=== PATIENT | female | born 1960 | race Caucasian/White ===

== ENCOUNTER → 2017-02-04 | Outpatient (CLI) | payer MEDICAID ==
[~2017-02-04] MED LIST: AC500T PO; ALBU8.5H4 IH; CEFD300C3 PO; CETI10CA PO; CHLO25TA22 PO; CLIN-62 PO; CODE118S2 PO; CPR500T PO; FLUT16SP22 NS; HCT25T PO; HYDR1TAB PO; LEVO750T6 PO; LORA1TAB PO; LSNP10T PO; NFPRILOC40 PO; OMEP10CA2 PO; ONDA8TAB13 PO; PRD20T PO; RNT150T PO; RT-ALBUINH IH; VNL75T PO
--- NOTE | 2017-02-05 13:39 | Diagnostic Imaging Report ---
Bilateral screening mammogram 2D views with tomosynthesis. The current study was also evaluated with a Computer Aided Detection (CAD) system. INDICATION: Screening. No current complaints stated on the questionnaire. COMPARISON: 07/05/2006. FINDINGS: Breasts are composed of scattered fibroglandular densities. Occasional benign-appearing calcifications are seen. Allowing for technique and positional differences, no suspicious change is seen. IMPRESSION: No significant change. ACR BI-RADS Category 2: Benign findings. Result letter will be mailed to the patient. Note: At least 10% of breast cancer is not imaged by mammography. Dictated on workstation # [id number]
== END ==
LOC: RAD 12:47
PROVIDERS: ATTEND Family Medicine
DX: Z12.31 Encounter for screening mammogram for malignant neoplasm of breast (principal)
CPT/HCPCS: 77067

== ENCOUNTER → 2017-02-17 | Outpatient (CLI) | payer MEDICAID ==
--- NOTE | 2017-02-17 18:15 | Diagnostic Imaging Report ---
PROCEDURE: CT abdomen and pelvis without contrast. TECHNIQUE: Multiple contiguous axial images were obtained through the abdomen and pelvis without the use of intravenous contrast. INDICATION: Hematuria and pain. COMPARISON: Exam correlated with chest CT of January 2016, also compared to 01/04/2013. FINDINGS: Fat-containing circumscribed lobular right lower lobe lung mass showed further interval increase in size, now measuring 1.9 x 1.8 cm, most recently at 1.7 x 1.6 cm and on the study of 2012 at 1.4 x 1.0 cm. In the interim, it has had an unremarkable PET scan and again it does have areas of macroscopic fat and is likely hamartoma. No new basilar lung mass and no basilar pleural fluid. There are no opaque kidney stones and there is no hydronephrosis. Left pelvic calcification as a new finding from 2015 can be confirmed outside the ureter and is believed pelvic phlebolith. A similar-appearing contralateral right-sided calcification is likely phlebolith as well but could not be confirmed to be extra-ureteral. No perinephric or periureteric edema. There is no appendicitis. There is noninflamed diverticulosis. The uterus, adnexa, and urinary bladder had an unremarkable appearance. There is no ascites, abscess, hematoma, or fluid collection. Liver, spleen, adrenals, and pancreas are unremarkable. No bile duct dilatation. IMPRESSION: No opaque kidney stone. No hydronephrosis. Left pelvic phleboliths noted. A right pelvic calcification is indeterminate between vascular versus small 2 mm distal ureteral stone without hydronephrosis. Noninflamed diverticulosis. No acute adnexal lesion. Fat-containing lobular well-defined right lower lobe lung mass showed serial interval increase from priors but has density and morphology suggestive of hamartoma. Dictated by: Dictated on workstation # [id number]
== END ==
LOC: RAD 09:43
PROVIDERS: ATTEND Family Medicine
DX: R19.03 Right lower quadrant abdominal swelling, mass and lump (principal); K57.30 Diverticulosis of large intestine without perforation or abscess without bleeding; R91.1 Solitary pulmonary nodule
CPT/HCPCS: 74176

== ENCOUNTER → 2018-01-19 | Outpatient (CLI) | payer OTHER ==
[~2018-01-19] MED LIST changes: +RT-ALBUTEROL SULF 2.5 MG/3 ML PRE-MIX VIAL INH ONE
== END ==
LOC: RT 11:06
PROVIDERS: ATTEND Internal Medicine Infectious Disease
DX: Z02.71 Encounter for disability determination (principal)
CPT/HCPCS: 94060; 94640; 94729

== ENCOUNTER 2018-04-15 01:09 | Emergency (ER) | payer MEDICAID ==
[~2018-04-15] VITALS: Ht 170.2 cm; Wt 131.5 kg
[~2018-04-15 01:09] MED LIST changes: -RT-ALBUTEROL SULF 2.5 MG/3 ML PRE-MIX VIAL INH ONE
--- OUTSIDE RECORDS SUMMARY | 2018-04-15 01:16 | XMS REPORT ---
Author Author KATERINA SMITH [facility] Address [address] [place] [address] Care Team Providers Care Shell Mold Bonder Name Role Phone KATERINA SMITH Unavailable PROBLEMS Type Condition ICD9-CM Code XHN02-VH Code Onset Dates Condition Status SNOMED Code Problem Acute exacerbation of chronic obstructive pulmonary disease (COPD) J44.1 Active 646539792 Problem Hereditary and idiopathic neuropathy, 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 Active 52105691 Problem Kidney stone N20.0 Active 68272361 Problem Bipolar II disorder F31.81 Active 12167510 Problem Dysthymia F34.1 Active 02792523 Problem Sciatica of left side M54.32 Active 06475597 Problem Back pain with left-sided radiculopathy M54.10 Active 045331133 Problem 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 31883497 Problem PTSD (post-traumatic stress disorder) F43.10 Active 02710150 Problem Female stress incontinence 625.6 Active 88919232 Problem Nondependent tobacco use disorder 305.1 Active 738123138 Problem Chronic airway obstruction, not elsewhere classified J44.9 Active 51835429 Problem Lung nodule R91.1 Active 186474788 Problem Chronic rhinitis J31.0 Active 80196751 Problem Overactive bladder N32.81 Active 088490407 Problem Essential hypertension I10 Active 27799464 Problem CAP (community acquired pneumonia) J18.9 Active 215375455 ALLERGIES No Information ENCOUNTERS Encounter Location Date Diagnosis [facility] [address] [facility] [id number] [address] May, [facility] [address] [id number] [id number] Apr, [facility] [address] [id number] [address] Apr, [facility] [id number] [place] [address] [id number] Mar, Dysthymia F34.1 [facility] [id number] [place] [address] [id number] Mar, BMI 45.0-49.9, adult Z68.42 ; Bipolar II disorder F31.81 ; Dysthymia F34.1 and Intertrigo L30.4 [facility] [address] [place] [address] 44119025- [address] Mar, Bipolar II disorder F31.81 ; 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 and PTSD (post-traumatic stress disorder) F43.10 [facility] [id number] [place] [address] [id number] Feb, Dysthymia F34.1 and BMI 45.0-49.9, adult Z68.42 [facility] [id number] [place] [address] [id number] Feb, Dysthymia F34.1 ; Chronic rhinitis J31.0 ; Strain of lumbar region, subsequent encounter S39.012D and BMI 45.0-49.9, adult Z68.42 [facility] [id number] [place] [address] [id number] Jan, Encounter for immunization Z23 [facility] [id number] [place] [address] [id number] Jan, Dysthymia F34.1 [facility] [id number] [place] [address] 59217245- 6459 Jan, PTSD (post-traumatic stress disorder) F43.10 and 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 [facility] [id number] [place] [address] [id number] Jan, BMI 45.0-49.9, adult Z68.42 and PTSD (post-traumatic stress disorder) F43.10 [facility] [id number], [place] [id number] Jan, BMI 45.0-49.9, adult Z68.42 and Chronic airway obstruction, not elsewhere classified J44.9 [facility] [id number], [place] [id number] Dec, PTSD (post-traumatic stress disorder) F43.10 ; Chronic airway obstruction , not elsewhere classified J44.9 ; Dysthymia F34.1 and Thrush B37.0 [facility] [id number], [place] [id number] Nov, Dysthymia F34.1 [facility] [address]00565100[place] [address] Nov, PTSD (post-traumatic stress disorder) F43.10 and 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 [id number] [place] [address] [id number] Nov, BMI 45.0-49.9, adult Z68.42 ; Strain of lumbar region, subsequent encounter S39.012D ; PTSD (post-traumatic stress disorder) F43.10 and Dysthymia F34.1 [address] [place] [address] [id number] Oct, [address] [place] [address] [id number] Oct, Dysthymia F34.1 and PTSD (post-traumatic stress disorder) F43.10 [address] [place] [address] [id number] Oct, BMI 45.0-49.9, adult Z68.42 ; Dysthymia F34.1 ; PTSD (post-traumatic stress disorder) F43.10 and Infective urethritis N34.2 [facility] [address] [id number] [place] [id number] Oct, Dysthymia F34.1 and PTSD (post-traumatic stress disorder) F43.10 [facility] [address] [id number] [place] [id number] Sep, Dysthymia F34.1 and PTSD (post-traumatic stress disorder) F43.10 [address] [place] [address] [id number] Sep, BMI 45.0-49.9, adult Z68.42 and Mood disorder F39 [facility] [address] [place] [address] [id number] Sep, [facility] [address] [facility] [id number] [place] [address] Sep, Dysthymia F34.1 [facility] [id number] [place] [address] [id number] Sep, Mood disorder F39 [facility] [address] [facility] [address] [id number] [place] [id number] August, Dysthymia F34.1 [facility] [id number] [place] [address] [id number] August, Dysthymia F34.1 ; Chronic airway obstruction, not elsewhere classified J44.9 ; Back pain with left-sided radiculopathy M54.10 and BMI 45.0-49.9, adult Z68.42 [facility] [id number] [place] [address] [id number] Jul, Urinary tract infection without hematuria, site unspecified N39.0 and Fatigue, unspecified type R53.83 [facility] [id number] [place] [address] [id number] Jul, Chronic airway obstruction, not elsewhere classified J44.9 [facility] [id number] [place] [address] [id number] Jul, BMI 45.0-49.9, adult Z68.42 and Infective urethritis N34.2 [facility] [id number] [place] [address] [id number] Jul, [facility] [id number] [place] [address] [id number] Jun, Back pain with left-sided radiculopathy M54.10 [facility] [id number] [place] [address] [id number] May, Chronic airway obstruction, not elsewhere classified J44.9 and Encounter for immunization Z23 [facility] [id number] [place] [address] [id number] Apr, BMI 45.0-49.9, adult Z68.42 ; Back pain with left-sided radiculopathy M54.10 ; Chronic airway obstruction, not elsewhere classified J44.9 and Dysthymia F34.1 [facility] [id number], [place] [id number] Mar, Sciatica of left side M54.32 ; Back pain with left-sided radiculopathy M54.10 and Hereditary and idiopathic neuropathy, 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 [facility] [id number] [place] [address] [id number] Mar, Flank pain R10.9 ; Urinary urgency R39.15 and Chronic airway obstruction, not elsewhere classified J44.9 [facility] [id number], [place] [id number] Mar, Dysthymia F34.1 [facility] [address] [place] [address] [place] [id number] [place] [id number] Feb, [facility] [address] [place] [address] 920917- [address] Feb, [facility] [id number] [place] [address] [id number] Feb, Hematuria, unspecified type R31.9 ; Kidney stone N20.0 and BMI 40.0-44.9, adult Z68.41 [facility] [address] [place], [id number], [place] [address] Feb, [address] [facility] [address] [id number] [place] [phone] Feb, [facility] [address] [place] [address] [id number] Feb, [facility] [id number] [place] [address] [id number] Feb, Dysthymia F34.1 ; Encounter for immunization Z23 ; Acute nasopharyngitis J00 ; Chronic rhinitis J31.0 and Chronic airway obstruction, not elsewhere classified J44.9 [facility] [address] [id number], [place] [address] Jan, Well woman exam Z01.419 ; Left breast lump N63.20 and BMI 40.0-44.9, adult Z68.41 [facility] [id number] [place] [address] [id number] Jan, Muscle cramps R25.2 [facility] [id number] [place] [address] [id number] Dec, Dysthymia F34.1 [facility] [id number] [place] [address] [id number] Dec, Muscle cramps R25.2 [facility] [address] [id number] Nov, Dysthymia F34.1 [facility] [id number] [place] [address] [id number] Oct, [facility] [id number] [place] [address] [id number] Oct, Chronic airway obstruction, not elsewhere classified J44.9 ; Moderate single current episode of major depressive disorder F32.1 ; Chronic rhinitis J31.0 and Muscle cramps R25.2 [facility] [id number] [place] [address] [id number] Sep, Acute nasopharyngitis J00 [facility] [address]00565100[place] [address] Jun, Acute exacerbation of chronic obstructive pulmonary disease (COPD) J44.1 [facility] [id number] [place] [address] [id number] Jun, Acute nasopharyngitis J00 [facility] [id number] [place] [address] [id number] Jun, [facility] [id number] [place] [address]- [address] Apr, [facility] [id number] [place] [address] [id number] Mar, Acute nasopharyngitis J00 [facility] [id number] [place] [address] [id number] Mar, [facility] [id number] [place] [address] [id number] Mar, [facility] [id number] [place] [address] [id number] Feb, CAP (community acquired pneumonia) J18.9 and Chronic rhinitis J31.0 [facility] [id number] [place] [address] [id number] Feb, CAP (community acquired pneumonia) J18.9 [facility] [id number] [place] [address] [id number] Feb, CAP (community acquired pneumonia) J18.9 [facility] [id number] [place] [address] [id number] Feb, [facility] [id number] [place] [address] [id number] Jan, Mood disorder F39 [facility] [id number] [place] [address]- 6651 Jan, [facility] [id number] [place] [address] [id number] Jan, Lung nodule R91.1 [facility] [id number] [place] [address] [id number] Jan, Lung nodule R91.1 [facility] [id number] [place] [address] [id number] Jan, Lung nodule R91.1 [facility] [id number] [place] [address] [id number] Jan, Lung nodule R91.1 [facility] [id number] [place] [address] [id number] Jan, [facility] [id number] [place] [address] [id number] Nov, Overactive bladder N32.81 ; Chronic airway obstruction, not elsewhere classified J44.9 and Essential hypertension I10 [facility] [id number] [place] [address] [id number] Oct, [place] [address] [id number] [place] [address] [id number] 15 Oct, 2015 Acute non-recurrent sinusitis, unspecified location J01.90 ; Cough R05 and Tobacco dependence F17.200 [id number] [place] [address] [id number] 14 Sep, 2015 Overactive bladder N32.81 and Chronic airway obstruction, not elsewhere classified J44.[address] [id number] August, Chronic airway obstruction, not elsewhere classified J44.9 ; Mood disorder F39 and Urinary frequency R35.[address] [id number] August, [address] [id number] Jul, Lung nodule R91.1 ; Chronic airway obstruction, not elsewhere classified J44.9 and Urinary tract infection without hematuria, site unspecified N39.0 [id number] [place] [address] [id number] Jul, Lung nodule R91.[address] [id number] Jul, [address] [id number] Jul, Diarrhea R19.7 and Lung nodule R91.[address] [id number] Apr, Upper respiratory tract infection, unspecified type J06.9 and COPD exacerbation J44.1 [id number] [place] [address] [id number] Mar, [address] [id number] Feb, Mood disorder F39 and Essential hypertension I10 [address] [id number] Jan, Essential hypertension I10 ; Mood disorder F39 ; Chronic airway obstruction, not elsewhere classified J44.9 and Chronic rhinitis J31.0 [address] [place] [address] Jan, zchikisLYNNE TARRS [address] [facility] [id number][place] [phone] Jan, [facility] [id number] [place] [id number] Jan, [facility] [address] [id number], [place] [phone] Jan, [facility] [address] [id number], [place] [id number] Dec, Bronchitis 490 zRenee TARRS [address] [facility] [id number], [place] [id number] Dec, [facility] [address] [id number], [place] 002803112 Sep, Rhinitis 472.0 [facility] [address]00565100[place], [place] [address] 0[address] Jul, [facility] [place] [facility] [address]00565100[place], [place] [address] 36[address] Jul, [facility] [address] [id number], [place] [id number] Jun, [facility] [place] [facility] [address] [id number], [place] [address] 4[address] Jun, [facility] [address]00565100[place], [place] [address]- 39[address] Jun, [facility] [address] [id number], [place] [id number] May, [facility] [place] [facility] [address] [id number], [place] [address]- 79[address] May, [facility] [address] [id number], [place] [id number] Apr, [facility] [place] [facility] [address]00565100[place], [place] [address]- 28[address] Apr, [facility] [address] [id number], [place] [id number] Mar, [facility] [place] [facility] [address] [id number] [place] [address]- 34[address] Mar, [facility] [address] [id number] [place] [id number] Mar, [facility] [place] [facility] [address] [facility] [id number] [place] [address]- 96[address] Mar, [facility] [address] [id number] [place] [id number] Mar, [facility] [place] [facility] [address] [facility] [id number] [place] [address]- 2960 Mar, [facility] [address] [id number] [place] [id number] Mar, [facility] [place] [facility] [address] [id number], [place] [address]- 405[address] Mar, [facility] [address] [facility] [id number] [place] [id number] Feb, [facility] [place] [facility] [address] [facility] [id number], [place] [address]- 1805 Feb, [facility] [address] [facility] [id number], [place] [id number] Feb, [facility] [place] [facility] [address] [facility] [id number], [place] [address]- 5[address] Feb, [facility] [address] [facility] [id number], [place] [id number] Feb, [facility] [place] [facility] [address] [facility] [id number], [place] [address]- 2727 Feb, [facility] [address] [id number], [place] [id number] Jan, [facility] [place] [facility] [address] [facility] [id number], [place] [address]- 1079 Jan, [facility] [address] [facility] [id number], [place] 680561649 Jan, [facility] [place] [facility] [address] [facility] [id number], [place] 47292561- 6[address] Jan, [facility] [address] [id number] [place] [id number] Sep, [facility] [place] [facility] [address] [facility] [id number] [place] [address]- 9576 Sep, [facility] [place] [facility] [address] [facility] [id number], [place] [address]- 0[address] Sep, [facility] [address] [facility] [id number], [place] [id number] Sep, [facility] [place] [facility] [address] [facility] [id number] [place] [address]- 1596 Sep, [facility] [place] [facility] [address] [facility] [id number] [place] [address]- 4193 Sep, [facility] [address] [facility] [id number], [place] [id number] Jul, [facility] [place] [facility] [address] [facility] [id number], [place] [address]- 8[address] Jul, [facility] [address] [facility] [id number], [place] [id number] Jun, [facility] [place] [facility] [address] [facility] [id number], [place] [address]- 7326 Jun, [facility] [address] [facility] [id number], [place] [id number] Jun, [facility] [place] [facility] [address] [facility] [id number], [place] [address]- 8886 Jun, [facility] [address] [facility] [id number], [place] [id number] Apr, [facility] [place] [facility] [address] [facility] [id number], [place] [address]- [address] Apr, [facility] [address] [facility] [id number], [place] [id number] Mar, [facility] [place] [facility] [address] [facility] [id number], [place] [address]- 4426 Mar, [facility] [address] [id number], [place] [id number] Mar, [facility] [address] [facility] [id number], [place] [address]- 2546 Mar, [facility] [address] [id number] [place] [id number] Feb, [facility] [address] [facility] [id number], [place] [address]- 2546 Feb, [facility] [address] [id number] [place] [id number] Jan, [facility] [place] [address] [facility] [id number], [place] [address]- 6426 Jan, [facility] [address] [id number] [place] [id number] 30 Dec, 2012 [facility] [place] [address]00565100[place], [place] [address]- 67[address] 16 Dec, 2012 [facility] [address] [id number], [place] [id number] Dec, [facility] [address] [id number], [place] [id number] Dec, [facility] [address] [id number] [place] [id number] Oct, [facility] [place] [address] [id number], [place] [address]- 2546 Oct, [facility] [place] [address]00565100[place], [place] [address]- 2546 Oct, [facility] [address] [id number], [place] [id number] Oct, [facility] [address] [id number] [place] [id number] Sep, [facility] [address] [id number] [place] [id number] August, [facility] [address] [id number] [place] [id number] August, [facility] [address] [id number] [place] [id number] August, [facility] [address] [id number] [place] [id number] Jul, [facility] [address] [facility] [id number], [place] [address]- [address] Jul, [facility] [address] [id number] [place] 394447654 Jul, [facility] [address] [id number] [place] 635329951 Jun, [facility] [address] [facility] [id number], [place] [address]- 8988 Jun, [facility] [address] [id number] [place] 085435331 Jun, [facility] [address] [id number] [place] [id number] Jun, [facility] [address] [id number] [place] 395468033 Jun, [facility] [address] [id number] [place] 396738196 Jun, [facility] [address] [id number] [place] [id number] Jun, [facility] [address] [id number] [place] 759133490 Feb, [facility] [address] [facility] [id number], [place] [address] Feb, [facility] [address] [id number] [place] [id number] Jan, [facility] [address] [id number] [place] [id number] Nov, [facility] [address] [id number] [place] [id number] Oct, [facility] [address] [id number] [place] [id number] Oct, [facility] [address] [id number] [place] [id number] Sep, [facility] [address] [facility] [id number], [place] [address] Mar, [facility] [address] [facility] [id number] [place] [address] Nov, IMMUNIZATIONS No Known Immunizations SOCIAL HISTORY Never Assessed REASON FOR VISIT med refill PLAN OF CARE VITAL SIGNS MEDICATIONS Medication Instructions Dosage Frequency Start Date End Date Duration Status Wellbutrin SR 150 MG Orally Twice a day 1 tablet 12h 20 Sep, 2017 30 days Active RESULTS No Results PROCEDURES No Known procedures INSTRUCTIONS MEDICATIONS ADMINISTERED No Known Medications MEDICAL (GENERAL) HISTORY Type Description Date Medical History hypertension Medical History allergies Medical History chronic obstructive pulmonary disease (COPD) Medical History anxiety Medical History sciatica Medical History acid reflux Medical History Pneumococcal inj (2012) Medical History depression Surgical History cholecystectomy 1979 [facility] x 3 days for stomach flu 07/24/15 Hospitalization History [facility]-given mag citrate for "blockage" 03/09/2016
--- OUTSIDE RECORDS SUMMARY | 2018-04-15 01:17 | XMS REPORT ---
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 Active 86218444 Problem Kidney stone N20.0 Active 04227286 Problem Bipolar II disorder F31.81 Active 57042028 Problem Dysthymia F34.1 Active 30810240 Problem Sciatica of left side M54.32 Active 59206736 Problem Back pain with left-sided radiculopathy M54.10 Active 600551071 Problem 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 84080141 Problem PTSD (post-traumatic stress disorder) F43.10 Active 91908752 Problem Female stress incontinence 625.6 Active 19528612 Problem Nondependent tobacco use disorder 305.1 Active 736709080 Problem Chronic airway obstruction, not elsewhere classified J44.9 Active 41257344 Problem Lung nodule R91.1 Active 886061751 Problem Chronic rhinitis J31.0 Active 60523703 Problem Overactive bladder N32.81 Active 270556681 Problem Essential hypertension I10 Active 07997486 Problem CAP (community acquired pneumonia) J18.9 Active 478737471 ALLERGIES No Information ENCOUNTERS Encounter Location Date Diagnosis [facility] [address] [facility] [id number] [place] [address] May, [facility] [address] [facility] [id number] [place] [phone] Apr, [facility] [address] [id number] [address] [address] Apr, [facility] [id number] [place] [address] [id number] Mar, BMI 45.0-49.9, adult Z68.42 ; Bipolar II disorder F31.81 ; Dysthymia F34.1 and Intertrigo L30.4 [facility] [id number] [place] [address] [id number]- [address]284 Mar, Bipolar II disorder F31.81 ; 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 and PTSD (post-traumatic stress disorder) F43.10 [facility] [id number] [place] [address] [id number] Feb, Dysthymia F34.1 and BMI 45.0-49.9, adult Z68.42 [id number] [place] [address] [id number] Feb, Dysthymia F34.1 ; Chronic rhinitis J31.0 ; Strain of lumbar region, subsequent encounter S39.012D and BMI 45.0-49.9, adult Z68.42 [id number] [place] [address] [id number] Jan, Encounter for immunization Z23 [address] [id number] [place] [address] [id number] Jan, Dysthymia F34.1 [facility] [address] [place] [address] [id number] 7615 Jan, PTSD (post-traumatic stress disorder) F43.10 and 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 [id number] [place] [address] [id number] Jan, BMI 45.0-49.9, adult Z68.42 and PTSD (post-traumatic stress disorder) F43.10 [id number] [place] [address] [id number] Jan, BMI 45.0-49.9, adult Z68.42 and Chronic airway obstruction, not elsewhere classified J44.9 [id number] [place] [address] [id number] Dec, PTSD (post-traumatic stress disorder) F43.10 ; Chronic airway obstruction , not elsewhere classified J44.9 ; Dysthymia F34.1 and Thrush B37.0 [address] [place] [address] [id number] Nov, Dysthymia F34.1 [facility] [address]65[address] [address] Nov, PTSD (post-traumatic stress disorder) F43.10 and 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 [address] [place] [address] [id number] Nov, BMI 45.0-49.9, adult Z68.42 ; Strain of lumbar region, subsequent encounter S39.012D ; PTSD (post-traumatic stress disorder) F43.10 and Dysthymia F34.1 [address] [place] [address] [id number] Oct, [id number] [place] [address] [id number] Oct, Dysthymia F34.1 and PTSD (post-traumatic stress disorder) F43.10 [address] [place] [address] [id number] Oct, BMI 45.0-49.9, adult Z68.42 ; Dysthymia F34.1 ; PTSD (post-traumatic stress disorder) F43.10 and Infective urethritis N34.2 [facility] [address] [id number][place] [phone] Oct, Dysthymia F34.1 and PTSD (post-traumatic stress disorder) F43.[address] [id number], [place] [id number] Sep, Dysthymia F34.1 and PTSD (post-traumatic stress disorder) F43.10 [address] [place] [address] [id number] Sep, BMI 45.0-49.9, adult Z68.42 and Mood disorder F39 [address] [id number] [place] [phone] Sep, [facility] [address] [facility] [address] [id number][place] [phone] Sep, Dysthymia F34.1 [facility] [id number] [place] [id number] Sep, Mood disorder F39 [facility] [address] [facility] [address] [id number], [place] [id number] August, Dysthymia F34.[address] [facility] [address]005[address] [id number] August, Dysthymia F34.1 ; Chronic airway obstruction, not elsewhere classified J44.9 ; Back pain with left-sided radiculopathy M54.10 and BMI 45.0-49.9, adult Z68.42 [facility] [address] [place] [address] [id number] Jul, Urinary tract infection without hematuria, site unspecified N39.0 and Fatigue, unspecified type R53.83 [address] [place] [address] [id number] Jul, Chronic airway obstruction, not elsewhere classified J44.9 [facility] [address] [place] [address] [id number] Jul, BMI 45.0-49.9, adult Z68.42 and Infective urethritis N34.2 [address] [place] [address] [id number] Jul, [facility] [address]005[address] [id number] Jun, Back pain with left-sided radiculopathy M54.10 [facility] [id number] [place] [address] [id number] May, Chronic airway obstruction, not elsewhere classified J44.9 and Encounter for immunization Z23 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 [facility] [id number] [place] [address] [id number] Mar, Flank pain R10.9 ; Urinary urgency R39.15 and Chronic airway obstruction, not elsewhere classified J44.9 [facility] [id number] [place] [address] [id number] Mar, Dysthymia F34.1 [facility] [address] [id number], [place] [id number] Feb, [facility] [address] 005892- [address] Feb, [facility] [id number] [place] [address] [id number] Feb, Hematuria, unspecified type R31.9 ; Kidney stone N20.0 and BMI 40.0-44.9, adult Z68.41 [facility] [address] [place], [id number] [address] Feb, [facility] [address] [facility] [id number] [place] [address] [id number] Feb, [facility] [id number] [place] [address] [id number] Feb, [facility] [id number] [place] [address] [id number] Feb, Dysthymia F34.1 ; Encounter for immunization Z23 ; Acute nasopharyngitis J00 ; Chronic rhinitis J31.0 and Chronic airway obstruction, not elsewhere classified J44.9 [facility] [id number] [place] [address] [id number]- 4772 30 Oct, 2017 Well woman exam Z01.419 ; Left breast lump N63.20 and BMI 40.0-44.9, adult Z68.41 [facility] [id number] [place] [address] [id number] Jan, Muscle cramps R25.2 [facility] [id number] [place] [address] [id number] Dec, Dysthymia F34.1 [facility] [id number] [place] [address] [id number] Dec, Muscle cramps R25.2 [facility] [address] [id number] [place] [phone] Nov, Dysthymia F34.1 [facility] [address] [id number] [place] [address] [id number] Oct, [facility] [address] [id number] [place] [address] [id number] Oct, Chronic airway obstruction, not elsewhere classified J44.9 ; Moderate single current episode of major depressive disorder F32.1 ; Chronic rhinitis J31.0 and Muscle cramps R25.2 [facility] [address] [id number] [place] [address] [id number] Sep, Acute nasopharyngitis J00 [facility] [address]65[address] [address] Jun, Acute exacerbation of chronic obstructive pulmonary disease (COPD) J44.1 [facility] [id number] [place] [address] [id number] Jun, Acute nasopharyngitis J00 [facility] [id number] [place] [address] [id number] Jun, [facility] [address] [place] [address] 3[address]- 5033 Apr, [facility] [id number] [place] [address] [id number] Mar, Acute nasopharyngitis J00 [facility] [id number] [place] [address] [id number] Mar, [facility] [id number] [place] [address] [id number] Mar, [facility] [id number] [place] [address] [id number] Feb, CAP (community acquired pneumonia) J18.9 and Chronic rhinitis J31.0 [facility] [id number] [place] [address] [id number] Feb, CAP (community acquired pneumonia) J18.9 [facility] [id number] [place] [address] [id number] Feb, CAP (community acquired pneumonia) J18.9 [facility] [id number] [place] [address] [id number] Feb, [facility] [id number] [place] [address] [id number] Jan, Mood disorder F39 [facility] [id number] [place] [address]- 0904 Jan, [facility] [id number] [place] [address] [id number] Jan, Lung nodule R91.1 [facility] [id number] [place] [address] [id number] Jan, Lung nodule R91.1 [facility] [id number] [place] [address] [id number] Jan, Lung nodule R91.1 [facility] [id number] [place] [address] [id number] Jan, Lung nodule R91.1 [facility] [id number] [place] [address] [id number] Jan, [facility] [id number] [place] [address] [id number] Nov, Overactive bladder N32.81 ; Chronic airway obstruction, not elsewhere classified J44.9 and Essential hypertension I10 [facility] [id number] [place] [address] [id number] Oct, [facility] [id number] [place] [address] [id number] Oct, Acute non-recurrent sinusitis, unspecified location J01.90 ; Cough R05 and Tobacco dependence F17.200 [id number] [place] [address] [id number] Sep, Overactive bladder N32.81 and Chronic airway obstruction, not elsewhere classified J44.9 [address] [id number] [place] [address] [id number] August, Chronic airway obstruction, not elsewhere classified J44.9 ; Mood disorder F39 and Urinary frequency R35.[address] [id number] August, [address] [id number] Jul, Lung nodule R91.1 ; Chronic airway obstruction, not elsewhere classified J44.9 and Urinary tract infection without hematuria, site unspecified N39.0 [place] [id number] [place] [address] [id number] Jul, Lung nodule R91.1 [place] [id number] [place] [address] [id number] Jul, [address] [id number] Jul, Diarrhea R19.7 and Lung nodule R91.1 [id number] [place] [address] [id number] Apr, Upper respiratory tract infection, unspecified type J06.9 and COPD exacerbation J44.1 [place] [id number] [place] [address] [id number] Mar, [address] [id number] Feb, Mood disorder F39 and Essential hypertension I10 [address] [id number] Jan, Essential hypertension I10 ; Mood disorder F39 ; Chronic airway obstruction, not elsewhere classified J44.9 and Chronic rhinitis J31.0 [address] [id number] [place] [address] [id number] Jan, [place] [id number] [phone] Jan, [facility] Gee0 [facility] [id number][place] [id number] Jan, [facility] [address] [id number] [place] [id number] Jan, [facility] [address] [id number] [place] [id number] Dec, [place] [address] [address] [id number], [place] [id number] Dec, [facility] [address] [id number] [place] [id number] Sep, Rhinitis 472.0 [facility] [place] [facility] [address]65[address] [address] Jul, [facility] [place] [facility] [address] [address]- 76[address] Jul, [facility] [address] [id number] [place] [id number] Jun, [facility] [place] [facility] [address] [address] 6[address] Jun, [facility] [place] [facility] [address]005[address] 11669292- 8196 Jun, [facility] [address] [id number] [place] [id number] May, [facility] [place] [facility] [address] [address] May, [facility] [address] [id number] [place] [id number] Apr, [facility] [place] [facility] [address] 18711309- 9899 Apr, [facility] [address] [id number] [place] [id number] Mar, [facility] [place] [facility] [address] 28121637- 6676 Mar, [facility] [address] [id number] [place] [id number] Mar, [facility] [place] [facility] [address] [facility] [id number] [place] [address]- 0096 Mar, [facility] [address] [id number] [place] [id number] Mar, [facility] [place] [facility] [address] [facility] [id number] [place] [address]- 2546 Mar, [facility] [address] [id number] [place] [id number] Mar, [facility] [place] [facility] [address] [facility] [id number] [place] [address]- 1766 Mar, [facility] [address] [facility] [id number] [place] [id number] Feb, [facility] [place] [facility] [address] [address]- 9006 Feb, [facility] [address] [id number] [place] [phone] Feb, [facility] [place] [facility] [address] [facility] [id number] [place] [address]- 7316 Feb, [facility] [address] [facility] [id number] [place] 516004517 Feb, [facility] [place] [facility] [address] [facility] [id number] [place] [address]- 3660 Feb, [facility] [address] [id number] [place] [id number] Jan, [facility] [place] [facility] [address] [facility] [id number] [place] [address]- 5847 Jan, [facility] [address] [id number] [place] [id number] Jan, [facility] [place] [facility] [address] [facility] [id number] [place] [address]- 7671 Jan, [facility] [address] [id number] [place] [id number] Sep, [facility] [place] [facility] [address] [facility] [id number] [place] [address]- 3812 Sep, [facility] [place] [facility] [address] [facility] [id number] [place] [address]- 7142 Sep, [facility] [address] [facility] [id number] [place] [id number] Sep, [facility] [place] [facility] [address] [facility] [id number] [place] [address]- 5395 Sep, [facility] [place] [facility] [address] [facility] [id number] [place] [address]- 9458 Sep, [facility] [address] [facility] [id number] [place] [id number] Jul, [facility] [place] [facility] [address] [facility] [id number] [place] [address]- 56[address] Jul, [facility] [address] [facility] [id number] [place] [id number] Jun, [facility] [place] [facility] [address] [facility] [id number] [place] [address]- 2133 Jun, [facility] [address] [facility] [id number] [place] [id number] Jun, [facility] [place] [facility] [address] [facility] [id number] [place] [address]- 9565 Jun, [facility] [address] [facility] [id number] [place] [id number] Apr, [facility] [place] [facility] [address] [facility] [id number] [place] [address]- 2776 Apr, [facility] [address] [facility] [id number] [place] [id number] Mar, [facility] [place] [facility] [address] [facility] [id number] [place] [address]- 9273 Mar, [facility] [address] [facility] [id number] [place] [id number] Mar, [facility] [place] [facility] [address] [facility] [id number] [place] [address]- 7[address] Mar, [facility] [address] [id number] [place] [id number] Feb, [facility] [address] [facility] [id number] [place] [address]- 7084 Feb, [facility] [address] [facility] [id number] [place] [id number] Jan, [facility] [address]005[address]100[place] [address]- 9890 Jan, [facility] [address] [id number] [place] [id number] Dec, [facility] [address]00565[address] [address]- 86[address] 16 Dec, 2012 [facility] [id number] [place] [id number] Dec, [facility] [address] [id number] [place] 778380755 Dec, [facility] [address] [id number] [place] [id number] Oct, [facility] [address]00565[address] [address] 254 Oct, [facility] [address]00565[address] [address]- 3099 Oct, [facility] [address] [id number] [place] [id number] Oct, [facility] [address] [id number] [place] [id number] Sep, [facility] [address] [id number] [place] [id number] August, [facility] [address] [id number] [place] 417934191 August, [facility] [address] [id number] [place] [id number] August, [facility] [address] [id number] [place] 719153979 Jul, [facility] [address] [facility] [id number] [place] [address]- 5[address] Jul, [facility] [address] [id number] [place] [id number] Jul, [facility] [address] [id number] [place] [id number] Jun, [facility] [address] [facility] [id number] [place] [address]- 3453 Jun, [facility] [address] [id number] [place] 102293272 Jun, [facility] [address] [id number] [place] 015631804 Jun, [facility] [address] [id number] [place] [id number] Jun, [facility] [address] [id number] [place] 023825224 Jun, [facility] [address] [id number] [place] [id number] Jun, [facility] [address] [id number] [place] [id number] Feb, [facility] [id number] [address] Feb, [facility] [address] [id number] [place] [id number] Jan, [facility] [address] [id number] [place] [id number] Nov, [facility] [address] [id number] [place] [id number] Oct, [facility] [address] [id number] [place] [id number] Oct, [facility] [address] [id number] [place] [id number] Sep, [facility] [id number] [address] Mar, [facility] [id number] [address] Nov, IMMUNIZATIONS No Known Immunizations SOCIAL HISTORY Never Assessed REASON FOR VISIT f/u PLAN OF CARE Activity Details Follow Up 2 Weeks, pt can call for same day appointment Reason: VITAL SIGNS MEDICATIONS Unknown Medications RESULTS No Results PROCEDURES Procedure Date Ordered Result Body Site Psychotherapy, patient and family, 45 minutes, established patient Mar 09, 2018 INSTRUCTIONS MEDICATIONS ADMINISTERED No Known Medications MEDICAL (GENERAL) HISTORY Type Description Date Medical History hypertension Medical History allergies Medical History chronic obstructive pulmonary disease (COPD) Medical History anxiety Medical History sciatica Medical History acid reflux Medical History Pneumococcal inj (2012) Medical History depression Surgical History cholecystectomy 1979 Hospitalization History [facility] for pneumonia 2012 Hospitalization History [facility] x 3 days for stomach flu 07/24/15 Hospitalization History [facility]-given mag citrate for "blockage" 03/09/2016
--- OUTSIDE RECORDS SUMMARY | 2018-04-15 01:17 | XMS REPORT ---
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 38707093 Problem Sciatica of left side M54.32 Active 55407444 Problem Back pain with left-sided radiculopathy M54.10 Active 404189699 Problem PTSD (post-traumatic stress disorder) F43.10 Active 39358977 Problem Hereditary and idiopathic neuropathy, 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 Active 77569361 Problem Female stress incontinence 625.6 Active 89829544 Problem Essential hypertension I10 Active 54815729 Problem Chronic airway obstruction, not elsewhere classified J44.9 Active 58840651 Problem Nondependent tobacco use disorder 305.1 Active 625930230 Problem Lung nodule R91.1 Active 183260409 Problem Chronic rhinitis J31.0 Active 96695799 Problem Overactive bladder N32.81 Active 915163780 ALLERGIES No Information ENCOUNTERS Encounter Location Date Diagnosis [facility] [address] [id number] [address] Apr, [facility] [address] [id number] [place] [id number] Mar, [facility] [address] [id number], [place] [address] Mar, [facility] [address] [id number] [place] [id number] Feb, Dysthymia F34.1 and BMI 45.0-49.9, adult Z68.42 [facility] [address] [place] [address] [id number] Feb, Dysthymia F34.1 ; Chronic rhinitis J31.0 ; Strain of lumbar region, subsequent encounter S39.012D and BMI 45.0-49.9, adult Z68.42 [facility] [id number] [place] [address] [id number] Jan, Encounter for immunization Z23 [facility] [id number] [place] [address] [id number] Jan, Dysthymia F34.1 [address] [address] Jan, PTSD (post-traumatic stress disorder) F43.10 and 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 [id number] [place] [address] [id number] Jan, BMI 45.0-49.9, adult Z68.42 and PTSD (post-traumatic stress disorder) F43.10 [id number] [place] [address] [id number] Jan, BMI 45.0-49.9, adult Z68.42 and Chronic airway obstruction, not elsewhere classified J44.9 [id number] [place] [address] [id number] Dec, PTSD (post-traumatic stress disorder) F43.10 ; Chronic airway obstruction , not elsewhere classified J44.9 ; Dysthymia F34.1 and Thrush B37.0 [address] [place] [address] [id number] Nov, Dysthymia F34.1 [facility] [id number] [place] [address] [id number]- 5515 Nov, PTSD (post-traumatic stress disorder) F43.10 and 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 [id number] [place] [address] [id number] Nov, BMI 45.0-49.9, adult Z68.42 ; Strain of lumbar region, subsequent encounter S39.012D ; PTSD (post-traumatic stress disorder) F43.10 and Dysthymia F34.1 [facility] [place] [address] [id number] [place] [id number] Oct, [facility] [place] [id number] [place] [address] [id number] Oct, Dysthymia F34.1 and PTSD (post-traumatic stress disorder) F43.10 [facility] [place] [id number] [place] [address] [id number] Oct, BMI 45.0-49.9, adult Z68.42 ; Dysthymia F34.1 ; PTSD (post-traumatic stress disorder) F43.10 and Infective urethritis N34.2 [facility] [address] [id number][place] [id number] Oct, Dysthymia F34.1 and PTSD (post-traumatic stress disorder) F43.10 [facility] [id number] [place] [address] [id number] Sep, Dysthymia F34.1 and PTSD (post-traumatic stress disorder) F43.10 [facility] [id number] [place] [id number] Sep, BMI 45.0-49.9, adult Z68.42 and Mood disorder F39 [facility] [id number] [place] [address] [id number] Sep, [facility] [address] [id number][place] [id number] Sep, Dysthymia F34.1 [facility] [id number] [place] [address] [id number] Sep, Mood disorder F39 [facility] [address] [id number], [place] [id number] August, Dysthymia F34.1 [facility] [place] [id number] [place] [address] [id number] August, Dysthymia F34.1 ; Chronic airway obstruction, not elsewhere classified J44.9 ; Back pain with left-sided radiculopathy M54.10 and BMI 45.0-49.9, adult Z68.42 [facility] [id number] [place] [address] [id number] Jul, Urinary tract infection without hematuria, site unspecified N39.0 and Fatigue, unspecified type R53.83 [facility] [id number] [place] [address] [id number] Jul, Chronic airway obstruction, not elsewhere classified J44.9 [facility] [id number] [place] [address] [id number] Jul, BMI 45.0-49.9, adult Z68.42 and Infective urethritis N34.2 [facility] [id number] [place] [address] [id number] Jul, [address] [id number] Jun, Back pain with left-sided radiculopathy M54.10 [facility] [id number] [place] [address] [id number] May, Chronic airway obstruction, not elsewhere classified J44.9 and Encounter for immunization Z23 [facility] [id number] [place] [address] [id number] Apr, BMI 45.0-49.9, adult Z68.42 ; Back pain with left-sided radiculopathy M54.10 ; Chronic airway obstruction, not elsewhere classified J44.9 and Dysthymia F34.1 [facility] [id number] [place] [address] [id number] Mar, Sciatica of left side M54.32 ; Back pain with left-sided radiculopathy M54.10 and Hereditary and idiopathic neuropathy, 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 [facility] [id number] [place] [address] [id number] Mar, Flank pain R10.9 ; Urinary urgency R39.15 and Chronic airway obstruction, not elsewhere classified J44.9 [facility] [id number] [place] [id number] Mar, Dysthymia F34.1 [facility] [address] [id number], [place] [id number] Feb, [facility] [address]005[address], [place] [address] Feb, [facility] [place] [id number] [place] [address] [id number] Feb, Hematuria, unspecified type R31.9 ; Kidney stone N20.0 and BMI 40.0-44.9, adult Z68.41 [facility] [address] [place], [place] [id number] [place] [address] Feb, [facility] [address] [facility] [address] [id number][place] [id number] Feb, [facility] [id number] [place] [address] [id number] Feb, [facility] [place] [id number] [place] [address] [id number] Feb, Dysthymia F34.1 ; Encounter for immunization Z23 ; Acute nasopharyngitis J00 ; Chronic rhinitis J31.0 and Chronic airway obstruction, not elsewhere classified J44.9 [facility] [address]005[address] [address] Jan, Well woman exam Z01.419 ; Left breast lump N63.20 and BMI 40.0-44.9, adult Z68.41 [facility] [place] [id number] [place] [id number] Jan, Muscle cramps R25.2 [facility] [place] [id number] [place] [address] [id number] Dec, Dysthymia F34.1 [facility] [place] [id number] [place] [address] [id number] Dec, Muscle cramps R25.2 [facility] [place] [id number] [place] [address] [id number] Nov, Dysthymia F34.1 [facility] [id number] [place] [address] [id number] Oct, [facility] [id number] [place] [address] [id number] Oct, Chronic airway obstruction, not elsewhere classified J44.9 ; Moderate single current episode of major depressive disorder F32.1 ; Chronic rhinitis J31.0 and Muscle cramps R25.2 [facility] [id number] [place] [address] [id number] Sep, Acute nasopharyngitis J00 [facility] [id number] [place] [address] Jun, Acute exacerbation of chronic obstructive pulmonary disease (COPD) J44.1 [facility] [id number] [place] [address] [id number] Jun, Acute nasopharyngitis J00 [facility] [id number] [place] [address] [id number] Jun, [facility] [id number] [place] [address] 6[address]- 0342 Apr, [facility] [id number] [place] [address] [id number] Mar, Acute nasopharyngitis J00 [facility] [id number] [place] [address] [id number] Mar, [facility] [id number] [place] [address] [id number] Mar, [facility] [id number] [place] [address] [id number] Feb, CAP (community acquired pneumonia) J18.9 and Chronic rhinitis J31.0 [facility] [place] [id number] [place] [address] [id number] Feb, CAP (community acquired pneumonia) J18.9 [facility] [id number] [place] [address] [id number] Feb, CAP (community acquired pneumonia) J18.9 [facility] [address] [id number] [id number] Feb, [facility] [id number] [place] [id number] Jan, Mood disorder F39 [facility] [address]005[address]100[place] [address] Jan, [facility] [id number] [place] [address] [id number] Jan, Lung nodule R91.1 [facility] [id number] [place] [address] [id number] Jan, Lung nodule R91.1 [facility] [id number] [place] [address] [id number] Jan, Lung nodule R91.1 [facility] [id number] [place] [address] [id number] Jan, Lung nodule R91.1 [facility] [id number] [place] [address] [id number] Jan, [facility] [id number] [place] [address] [id number] Nov, Overactive bladder N32.81 ; Chronic airway obstruction, not elsewhere classified J44.9 and Essential hypertension I10 [facility] [id number] [place] [address] [id number] Oct, [id number] [place] [address] [id number] Oct, Acute non-recurrent sinusitis, unspecified location J01.90 ; Cough R05 and Tobacco dependence F17.200 [facility] [id number] [place] [address] [id number] Sep, Overactive bladder N32.81 and Chronic airway obstruction, not elsewhere classified J44.9 [id number] [place] [address] [id number] August, Chronic airway obstruction, not elsewhere classified J44.9 ; Mood disorder F39 and Urinary frequency R35.0 [address] [place] [address] [id number] August, [address] 31093100[place] [id number] Jul, Lung nodule R91.1 ; Chronic airway obstruction, not elsewhere classified J44.9 and Urinary tract infection without hematuria, site unspecified N39.0 [facility] [place] [id number] [place] [id number] Jul, Lung nodule R91.1 [facility] [address]005[address] [id number] Jul, [id number] [place] [address] [id number] Jul, Diarrhea R19.7 and Lung nodule R91.1 [id number] [place] [address] [id number] Apr, Upper respiratory tract infection, unspecified type J06.9 and COPD exacerbation J44.1 [id number] [place] [address] [id number] Mar, [id number] [place] [address] [id number] Feb, Mood disorder F39 and Essential hypertension I10 [id number] [place] [address] [id number] Jan, Essential hypertension I10 ; Mood disorder F39 ; Chronic airway obstruction, not elsewhere classified J44.9 and Chronic rhinitis J31.0 [id number] [id number] Jan, [address]00565100[place] [id number] Jan, [facility] [address] [facility] [id number][place] [id number] Jan, [facility] [id number] [place] [address] [id number] Jan, [address]00565100[place] [id number] Dec, Bronchitis [address]6084 [address]00565100[place] [id number] Dec, [facility] [address]005[address]100[place] [id number] Sep, Rhinitis 472.0 [facility] [place] [facility] [address]00565100[place], [place] [address]- 5[address] Jul, [facility] [place] [facility] [address]00565100[place], [place] [address]- 67[address] Jul, [facility] [place] [id number] [place] [id number] Jun, [facility] [place] [facility] [address] [facility] [id number] [place] [address] 7[address]- 1966 Jun, [facility] [place] [facility] [address]00565100[place], [place] [address]- 87[address] Jun, [facility] [id number] [place] [id number] May, [facility] [place] [facility] [address]00565100[place], [place] [address]- 5[address] May, [facility] [id number] [place] [id number] Apr, [facility] [place] [facility] [address]00565100[place], [place] [address]- 6699 Apr, [facility] [id number] [place] [id number] Mar, [facility] [place] [facility] [address]00565100[place], [place] [address]- 7[address] Mar, [facility] [address] [facility] [id number] [place] [id number] Mar, [facility] [place] [facility] [address] [facility] [id number], [place] [address]- 7886 Mar, [facility] [address] [id number] [place] [id number] Mar, [facility] [place] [facility] [address] [id number], [place] [address]- 3916 Mar, [facility] [address] [id number] [place] [id number] Mar, [facility] [place] [facility] [address] [facility] [id number], [place] [address]- 8973 Mar, [facility] [address] [facility] [id number] [place] [id number] Feb, [facility] [place] [facility] [address] [facility] [id number], [place] [address]- 8749 Feb, [facility] [address] [facility] [id number] [place] [id number] Feb, [facility] [place] [facility] [address] [facility] [id number], [place] [address]- 3073 Feb, [facility] [address] [facility] [id number] [place] [id number] Feb, [facility] [place] [facility] [address]005[address]100[place], [place] [address]- 9922 Feb, [facility] [address] [id number] [place] [id number] Jan, [facility] [place] [facility] [address]005[address]100[place], [place] [address]- 5067 Jan, [facility] [address] [id number] [place] [id number] Jan, [facility] [place] [facility] [address]00565100[place], [place] [address]- 9171 Jan, [facility] [address] [id number] [place] [id number] Sep, [facility] [place] [facility] [address] [facility] [id number] [address]- 3620 Sep, [facility] [place] [facility] [address] [facility] [id number], [place] [address]- 3514 Sep, [facility] [address] [facility] [id number] [place] [id number] Sep, [facility] [place] [facility] [address] [facility] [id number], [place] [address]- 2101 Sep, [facility] [place] [facility] [address] [facility] [id number], [place] [address]- 2546 Sep, [facility] [address] [id number] [place] [id number] Jul, [facility] [place] [facility] [address] [facility] [id number], [place] [address]- 2546 Jul, [facility] [address] [facility] [id number] [place] [id number] Jun, [facility] [place] [facility] [address] [facility] [id number], [place] [address]- 2546 Jun, [facility] [address] [id number] [place] [id number] Jun, [facility] [place] [facility] [address] [facility] [id number], [place] [address]- 2546 Jun, [facility] [address] [id number] [place] [id number] Apr, [facility] [place] [facility] [address]00565100[place], [place] [address]- 2546 Apr, [facility] [address] [id number] [place] [id number] Mar, [facility] [place] [facility] [address]00565100[place], [place] [address]- 1706 Mar, [facility] [address] [id number] [place] [id number] Mar, [facility] [place] [facility] [address] [id number], [place] [address]- 2546 Mar, [facility] [address] [facility] [id number] [place] [id number] Feb, [facility] [place] [facility] [address] [facility] [id number], [place] [address]- 2546 Feb, [facility] [address] [facility] [id number] [place] [id number] Jan, [facility] [place] [facility] [address] [id number], [place] [address]- 2366 Jan, [facility] [address] [facility] [id number] [place] [id number] 30 Dec, 2012 [facility] [address] [id number] [place] [address]- 4660 16 Dec, 2012 [facility] [address] [id number] [place] [id number] Dec, [facility] [address] [id number] [place] 700549146 Dec, [facility] [address] [id number] [place] [id number] Oct, [facility] [address] [facility] [id number] [place] [address]- 00[address] Oct, [facility] [place] [facility] [address] [facility] [id number] [place] [address]- 9534 Oct, [facility] [address] [id number] [place] [id number] Oct, [facility] [address] [id number] [place] 070699992 Sep, [facility] [address] [id number] [place] [id number] August, [facility] [address] [id number] [place] [id number] August, [facility] [address] [id number] [place] [id number] August, [facility] [address] [id number] [place] [id number] Jul, [facility] [address] [facility] [id number], [place] [address]- 57[address] Jul, [facility] [address] [id number] [place] [id number] Jul, [facility] [address] [id number] [place] [id number] Jun, [facility] [place] [facility] [address] [facility] [id number] [place] [address]- 6886 Jun, [facility] [address] [id number] [place] [id number] Jun, [facility] [address] [id number] [place] [id number] Jun, [facility] [id number] [place] [id number] Jun, [facility] [id number] [place] 780994832 Jun, [facility] [id number] [place] [id number] Jun, [facility] [address] [id number] [id number] Feb, [facility] [id number] [place] [address] 07016- 2546 Feb, [facility] [id number] [place] [phone] Jan, [facility] [id number] [place] [id number] Nov, [facility] [id number] [place] [id number] Oct, [facility] [id number] [place] [id number] Oct, [facility] [id number] [place] [id number] Sep, [facility] [id number] [place] [phone] Mar, [facility] [id number] [place] [phone] Nov, IMMUNIZATIONS No Known Immunizations SOCIAL HISTORY Never Assessed REASON FOR VISIT Medication refill request PLAN OF CARE VITAL SIGNS MEDICATIONS Medication Instructions Dosage Frequency Start Date End Date Duration Status Wellbutrin SR 150 mg Orally Twice a day 1 tablet 12h Sep, Active Anoro Ellipta 62.5-25 MCG/INH Inhalation Once a day 1 puff 24h Dec, Active Pantoprazole Sodium 40 mg Orally Once a day 1 tablet 24h Active RESULTS No Results PROCEDURES No Known procedures INSTRUCTIONS MEDICATIONS ADMINISTERED No Known Medications MEDICAL (GENERAL) HISTORY Type Description Date Medical History hypertension Medical History allergies Medical History chronic obstructive pulmonary disease (COPD) Medical History anxiety Medical History sciatica Medical History acid reflux Medical History Pneumococcal inj (2012) Medical History depression Surgical History cholecystectomy 1979 Hospitalization History [facility] for pneumonia 2012 Hospitalization History [facility] x 3 days for stomach flu 07/24/15 Hospitalization History [facility] for [facility]-given mag citrate for "blockage" 03/09/2016
--- OUTSIDE RECORDS SUMMARY | 2018-04-15 01:17 | XMS REPORT ---
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 93663544 Problem Sciatica of left side M54.32 Active 05499387 Problem Back pain with left-sided radiculopathy M54.10 Active 916235316 Problem PTSD (post-traumatic stress disorder) F43.10 Active 42546318 Problem Hereditary and idiopathic neuropathy, 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 Active 75665356 Problem Female stress incontinence 625.6 Active 45007561 Problem Essential hypertension I10 Active 42012091 Problem Chronic airway obstruction, not elsewhere classified J44.9 Active 83557866 Problem Nondependent tobacco use disorder 305.1 Active 466000264 Problem Lung nodule R91.1 Active 501880274 Problem Chronic rhinitis J31.0 Active 55217678 Problem Overactive bladder N32.81 Active 903672507 ALLERGIES No Information ENCOUNTERS Encounter Location Date Diagnosis [facility] [address] [facility] [id number] [address] Mar, [facility] [address]005[address]100[place], [place] [address] 2547 Mar, [facility] [address] 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 [facility] [id number] [place] [address] [phone] Jan, BMI 45.0-49.9, adult Z68.42 and PTSD (post-traumatic stress disorder) F43.10 [facility] [id number] [place] [address] [id number] Jan, BMI 45.0-49.9, adult Z68.42 and Chronic airway obstruction, not elsewhere classified J44.9 [facility] [id number] [place] [address] [id number] Dec, PTSD (post-traumatic stress disorder) F43.10 ; Chronic airway obstruction , not elsewhere classified J44.9 ; Dysthymia F34.1 and Thrush B37.0 [facility] [id number] [place] [address] [phone] Nov, Dysthymia F34.1 [facility] [address]00565100[place], [place] [address] Nov, PTSD (post-traumatic stress disorder) F43.10 and 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 [facility] [id number] [place] [address] [id number] Nov, BMI 45.0-49.9, adult Z68.42 ; Strain of lumbar region, subsequent encounter S39.012D ; PTSD (post-traumatic stress disorder) F43.10 and Dysthymia F34.1 [facility] [id number] [place] [address] [id number] Oct, [facility] [id number] [place] [address] [id number] Oct, Dysthymia F34.1 and PTSD (post-traumatic stress disorder) F43.10 [facility] [id number], [place] [phone] Oct, BMI 45.0-49.9, adult Z68.42 ; Dysthymia F34.1 ; PTSD (post-traumatic stress disorder) F43.10 and Infective urethritis N34.2 [facility] [address] [id number] [id number] Oct, Dysthymia F34.1 and PTSD (post-traumatic stress disorder) F43.10 [facility] [address] [id number][place] [phone] Sep, Dysthymia F34.1 and PTSD (post-traumatic stress disorder) F43.10 [facility] [id number] [place] [address] [id number] Sep, BMI 45.0-49.9, adult Z68.42 and Mood disorder F39 [facility] [id number] [place] [address] [id number] Sep, [facility] [id number] [place] [address] [id number] Sep, [facility] [facility]34.[address] [facility] [id number] [place] [address] [id number] Sep, Mood disorder F39 [facility] [address] [id number][place] [id number] August, Dysthymia F34.1 [facility] [id number] [place] [address] [id number] August, Dysthymia F34.1 ; Chronic airway obstruction, not elsewhere classified J44.9 ; Back pain with left-sided radiculopathy M54.10 and BMI 45.0-49.9, adult Z68.42 [facility] [address] [place] [address] [phone] Jul, Urinary tract infection without hematuria, site unspecified N39.0 and Fatigue, unspecified type R53.83 [facility] [address] [id number] [address] Jul, Chronic airway obstruction, not elsewhere classified J44.9 [facility] [id number], [place] [id number] Jul, BMI 45.0-49.9, adult Z68.42 and Infective urethritis N34.2 [facility] [id number] [place] [address] [id number] Jul, [facility] [id number] [place] [address] [id number] Jun, Back pain with left-sided radiculopathy M54.10 [facility] [id number] [place] [address] [id number] May, Chronic airway obstruction, not elsewhere classified J44.9 and Encounter for immunization Z23 [facility] [id number] [place] [address] [id number] Apr, BMI 45.0-49.9, adult Z68.42 ; Back pain with left-sided radiculopathy M54.10 ; Chronic airway obstruction, not elsewhere classified J44.9 and Dysthymia F34.1 [facility] [id number] [place] [address] [id number] Mar, Sciatica of left side M54.32 ; Back pain with left-sided radiculopathy M54.10 and Hereditary and idiopathic neuropathy, 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 [facility] [id number], [place] [id number] Mar, Flank pain R10.9 ; Urinary urgency R39.15 and Chronic airway obstruction, not elsewhere classified J44.9 [facility] [address] [facility] [id number], [place] [address] Mar, Dysthymia F34.1 [facility] [address] [facility] [id number][place] [phone] Feb, [facility] [address] [facility] [id number], [place] [address] Feb, [facility] [id number] [place] [address] [id number] Feb, Hematuria, unspecified type R31.9 ; Kidney stone N20.0 and BMI 40.0-44.9, adult Z68.41 [facility] [address] [place], [id number], [place] [address] Feb, [address] [facility] [address] [id number], [place] [id number] Feb, [facility] [id number], [place] [id number] Feb, [facility] [id number], [place] [address] Feb, Dysthymia F34.1 ; Encounter for immunization Z23 ; Acute nasopharyngitis J00 ; Chronic rhinitis J31.0 and Chronic airway obstruction, not elsewhere classified J44.9 [facility] [address]00565100[place], [place] [address] Jan, Well woman exam Z01.419 ; Left breast lump N63.20 and BMI 40.0-44.9, adult Z68.41 [facility] [id number], [place] [address] Jan, Muscle cramps R25.2 [facility] [id number], [place] [id number] Dec, Dysthymia F34.1 [facility] [id number], [place] [id number] Dec, Muscle cramps R25.2 [facility] [id number], [place] [id number] Nov, Dysthymia F34.1 [facility] [id number], [place] [id number] Oct, [facility] [id number] [place] [address] [id number] Oct, Chronic airway obstruction, not elsewhere classified J44.9 ; Moderate single current episode of major depressive disorder F32.1 ; Chronic rhinitis J31.0 and Muscle cramps R25.2 [facility] [address] [id number], [place] [phone] Sep, Acute nasopharyngitis J00 [facility] [address]00565100[place], [place] [address] Jun, Acute exacerbation of chronic obstructive pulmonary disease (COPD) J44.1 [facility] [id number] [place] [address] [id number] Jun, Acute nasopharyngitis J00 [facility] [id number] [place] [address] [id number] Jun, [facility] [address] [place] [address] Apr, [facility] [id number] [place] [address] [id number] Mar, Acute nasopharyngitis J00 [facility] [id number] [place] [address] [id number] Mar, [facility] [id number] [place] [address] [id number] Mar, [facility] [id number] [place] [address] [id number] Feb, CAP (community acquired pneumonia) J18.9 and Chronic rhinitis J31.0 [facility] [id number] [place] [address] [id number] Feb, CAP (community acquired pneumonia) J18.9 [facility] [id number] [place] [address] [id number] Feb, CAP (community acquired pneumonia) J18.9 [facility] [id number] [place] [address] [id number] Feb, [facility] [id number] [place] [address] [id number] Jan, Mood disorder F39 [facility] [address]00565100[place] [address] Jan, [facility] [id number] [place] [address] [id number] Jan, Lung nodule R91.1 [facility] [id number] [place] [address] [id number] Jan, Lung nodule R91.1 [facility] [id number] [place] [address] [id number] Jan, Lung nodule R91.1 [facility] [id number] [place] [address] [id number] Jan, Lung nodule R91.1 [address] [place] [id number] [place] [address] [id number] Jan, [facility] [id number] [place] [address] [id number] Nov, Overactive bladder N32.81 ; Chronic airway obstruction, not elsewhere classified J44.9 and Essential hypertension I10 [place] [id number] [place] [address] [id number] Oct, [place] [id number] [place] [address] [id number] Oct, Acute non-recurrent sinusitis, unspecified location J01.90 ; Cough R05 and Tobacco dependence F17.200 [address] [place] [id number] [place] [address] [id number] Sep, Overactive bladder N32.81 and Chronic airway obstruction, not elsewhere classified J44.9 [address] [id number] [place] [address] [id number] August, Chronic airway obstruction, not elsewhere classified J44.9 ; Mood disorder F39 and Urinary frequency R35.0 [address] [place] [address] [id number] August, [id number] [place] [address] [id number] Jul, Lung nodule R91.1 ; Chronic airway obstruction, not elsewhere classified J44.9 and Urinary tract infection without hematuria, site unspecified N39.0 [facility] [id number] [place] [address] [id number] Jul, Lung nodule R91.1 [address] [place] [address] [id number] Jul, [address] [id number] [id number] Jul, Diarrhea R19.7 and Lung nodule R91.1 [place] [id number] [place] [address] [id number] Apr, Upper respiratory tract infection, unspecified type J06.9 and COPD exacerbation J44.1 [facility] [address] [place] [address] [id number] Mar, [id number] [place] [address] [id number] Feb, Mood disorder F39 and Essential hypertension I10 [id number] [place] [address] [id number] Jan, Essential hypertension I10 ; Mood disorder F39 ; Chronic airway obstruction, not elsewhere classified J44.9 and Chronic rhinitis J31.0 [address] [place] [address] [id number] Jan, [address]00565100[place] [id number] Jan, [facility] [address] [id number], [place] [id number] Jan, [address] [place] [address] [id number] Jan, [address] [place] [address] [id number] Dec, Bronchitis [address] [place] [address] [id number] Dec, [facility] [address] [place] [address] [id number] Sep, Rhinitis 472.0 [facility] [id number] [place] [address] [id number] Jul, [facility] [id number] [place] [address] [id number] 2747 Jul, [address] [place] [address] [id number] Jun, [facility] [address] [id number], [place] [address] Jun, [facility] [place] [facility] [address] [facility] [id number], [place] [address]- [address] Jun, [facility] [address] [facility] [id number] [place] [id number] May, [facility] [place] [facility] [address] [facility] [id number], [place] [address]- [address] May, [facility] [address] [facility] [id number] [place] [id number] Apr, [facility] [place] [facility] [address] [facility] [id number] [place] [address]- 1586 Apr, [facility] [address] [facility] [id number], [place] [id number] Mar, [facility] [address] [facility] [id number], [place] [address]- 6686 Mar, [facility] [address] [facility] [id number], [place] [id number] Mar, [facility] [place] [facility] [address] [facility] [id number], [place] [address]- 9856 Mar, [facility] [address] [facility] [id number], [place] [id number] Mar, [facility] [place] [facility] [address] [facility] [id number], [place] [address]- 7[address] Mar, [facility] [address] [facility] [id number], [place] [id number] Mar, [facility] [place] [facility] [address] [facility] [id number], [place] [address]- 25[address] Mar, [facility] [address] [facility] [id number], [place] [id number] Feb, [facility] [place] [facility] [address] [facility] [id number], [place] [address]- 5[address] Feb, [facility] [address] [facility] [id number], [place] [id number] Feb, [facility] [place] [facility] [address] [facility] [id number], [place] [address]- 21[address] Feb, [facility] [address] [facility] [id number] [place] [id number] Feb, [facility] [place] [facility] [address] [facility] [id number] [place] [address]- 6116 Feb, [facility] [address] [facility] [id number] [place] [id number] Jan, [facility] [place] [facility] [address] [facility] [id number] [place] [address]- 6036 Jan, [facility] [address] [facility] [id number] [place] [id number] Jan, [facility] [place] [facility] [address] [id number], [place] [address] 2546 Jan, [facility] [address] [id number], [place] [id number] Sep, [facility] [place] [facility] [address] [facility] [id number], [place] [address]- 9949 Sep, [facility] [place] [facility] [address]00565100[place], [place] [address]- 85[address] Sep, [facility] [address] [facility] [id number], [place] [id number] Sep, [facility] [place] [facility] [address]00565100[place], [place] [address]- 0[address] Sep, [facility] [place] [facility] [address] [facility] [id number], [place] [address]- 2717 Sep, [facility] [address] [facility] [id number], [place] [id number] Jul, [facility] [place] [facility] [address] [facility] [id number], [place] [address]- 9886 Jul, [facility] [address] [facility] [id number] [place] [id number] Jun, [facility] [place] [facility] [address] [facility] [id number], [place] [address]- 2546 Jun, [facility] [address] [id number] [place] [id number] Jun, [facility] [address] [facility] [id number], [place] [address]- 2546 Jun, [facility] [address] [id number] [place] [id number] Apr, [facility] [address] [facility] [id number], [place] [address]- 2016 Apr, [facility] [address] [id number] [place] 604509348 Mar, [facility] [address]00565100[place], [place] [address]- 1136 Mar, [facility] [id number], [place] 807458404 Mar, [facility] [address]00565100[place], [place] [address]- 5006 Mar, [facility] [address] [id number], [place] [id number] Feb, [facility] [address]00565100[place], [place] [address]- 9[address] Feb, [facility] [address] [id number], [place] 83[address]01640 Jan, [facility] [address] [id number], [place] [address]- 2546 Jan, [facility] [address] [id number], [place] [id number] 30 Dec, 2012 [facility] [place] [facility] [address] [facility] [id number], [place] [address]- 2546 16 Dec, 2012 [facility] [address] [id number] [place] [id number] 09 Dec, 2012 [facility] [address] [id number] [place] [id number] 05 Dec, 2012 [facility] [address] [id number], [place] 413926384 Oct, [facility] [address] [facility] [id number] [place] [address]- 2580 Oct, [facility] [address] [facility] [id number], [place] [address]- 2546 Oct, [facility] [address] [id number] [place] [id number] Oct, [facility] [address] [id number] [place] [id number] Sep, [facility] [address] [id number] [place] [id number] August, [facility] [address] [id number] [place] [id number] August, [facility] [address] [id number] [place] [id number] August, [facility] [address] [id number] [place] [id number] Jul, [facility] [address] [facility] [id number], [place] [address]- 2546 Jul, [facility] [address] [id number] [place] [id number] Jul, [facility] [address] [id number] [place] [id number] Jun, [facility] [address] [facility] [id number], [place] [address]- 2546 Jun, [facility] [address] [id number] [place] [id number] Jun, [facility] [address] [id number] [place] [id number] Jun, [facility] [address] [id number] [place] [id number] Jun, [facility] [address] [id number] [place] [id number] Jun, [facility] [address] [id number] [place] [id number] Jun, [facility] [address] [id number], [place] 275457589 Feb, [facility] [address]00565100[place], [place] [address]- 25[address] Feb, [facility] [address] [id number], [place] [id number] Jan, [facility] [address] [id number], [place] [id number] Nov, [facility] [id number], [place] 395915841 Oct, [facility] [address] [id number], [place] [id number] Oct, [facility] [address] [place] [address] [id number] Sep, [facility] [id number] [address] Mar, [facility] [id number] [address] Nov, IMMUNIZATIONS Vaccine Route Administration Date Status FLULAVAL QUAD 0.5ML (6 MO & UP) 2018 IM Intramuscular Jan 28, 2018 Administered SOCIAL HISTORY Never Assessed REASON FOR VISIT Flu shot Jake RN PLAN OF CARE VITAL SIGNS MEDICATIONS Unknown Medications RESULTS No Results PROCEDURES Procedure Date Ordered Result Body Site FLULAVAL QUAD 0.5ML (6 MO AND UP) 2017Jan 28, 2018 SINGLE IMMUNIZATION ADMIN Jan 28, 2018 INSTRUCTIONS MEDICATIONS ADMINISTERED No Known Medications MEDICAL (GENERAL) HISTORY Type Description Date Medical History hypertension Medical History allergies Medical History chronic obstructive pulmonary disease (COPD) Medical History anxiety Medical History sciatica Medical History acid reflux Medical History Pneumococcal inj (2012) Medical History depression Surgical History cholecystectomy 1979 Hospitalization History [facility] 2012 Hospitalization [facility] 3 days for stomach flu 07/24/15 Hospitalization History [facility]-given mag citrate for "blockage" 03/09/2016
[2018-04-15] MEDS ORDERED: diphenhydrAMINE 50 MG/ML INJ (BENADRYL) IV STA (01:18)
--- OUTSIDE RECORDS SUMMARY | 2018-04-15 01:18 | XMS REPORT ---
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 34499983 Problem Sciatica of left side M54.32 Active 13627447 Problem Back pain with left-sided radiculopathy M54.10 Active 323319511 Problem PTSD (post-traumatic stress disorder) F43.10 Active 82309314 Problem Hereditary and idiopathic neuropathy, 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 Active 67259174 Problem Female stress incontinence 625.6 Active 48970010 Problem Essential hypertension I10 Active 35960550 Problem Chronic airway obstruction, not elsewhere classified J44.9 Active 74410733 Problem Nondependent tobacco use disorder 305.1 Active 166046296 Problem Lung nodule R91.1 Active 467700907 Problem Chronic rhinitis J31.0 Active 74706509 Problem Overactive bladder N32.81 Active 300755872 ALLERGIES No Information ENCOUNTERS Encounter Location Date Diagnosis [facility] [address] [facility][1] [id number] [id number] Feb, [facility] [address] [id number] [address] Jan, [facility] [address] [id number], [place] [address] Jan, BMI 45.0-49.9, adult Z68.42 and PTSD (post-traumatic stress disorder) F43.10 [facility] [address] [id number][place] [address]342234 Jan, BMI 45.0-49.9, adult Z68.42 and Chronic airway obstruction, not elsewhere classified J44.9 [facility] [id number] [place] [address] [id number] Dec, PTSD (post-traumatic stress disorder) F43.10 ; Chronic airway obstruction , not elsewhere classified J44.9 ; Dysthymia F34.1 and Thrush B37.0 [address] [address] [address] [id number] [place] [address] [id number] Nov, Dysthymia F34.1 [facility] [address] [place] [address] [id number]- 7427 Nov, PTSD (post-traumatic stress disorder) F43.10 and 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 [place] [address] [phone] Nov, BMI 45.0-49.9, adult Z68.42 ; Strain of lumbar region, subsequent encounter S39.012D ; PTSD (post-traumatic stress disorder) F43.10 and Dysthymia F34.[address] [place] [address] [phone] Oct, [id number] [place] [address] [id number] Oct, Dysthymia F34.1 and PTSD (post-traumatic stress disorder) F43.[address] [place] [address] [phone] Oct, BMI 45.0-49.9, adult Z68.42 ; Dysthymia F34.1 ; PTSD (post-traumatic stress disorder) F43.10 and Infective urethritis N34.2 [facility] [address] [id number] [phone] Oct, Dysthymia F34.1 and PTSD (post-traumatic stress disorder) F43.10 [facility] [address] [id number][place] [phone] Sep, Dysthymia F34.1 and PTSD (post-traumatic stress disorder) F43.10 [facility] [id number] [place] [address] [id number] Sep, BMI 45.0-49.9, adult Z68.42 and Mood disorder F39 [facility] [id number] [place] [address] [id number] Sep, [facility] [address] [id number] [place] [address] [id number] Sep, Dysthymia F34.1 [facility] [id number] [place] [address] [phone] Sep, Mood disorder F39 [facility] [address] [place] [id number] [place] [address] [id number] August, Dysthymia F34.1 [facility] [id number] [place] [address] [phone] August, Dysthymia F34.1 ; Chronic airway obstruction, not elsewhere classified J44.9 ; Back pain with left-sided radiculopathy M54.10 and BMI 45.0-49.9, adult Z68.42 [facility] [id number] [place] [address] [id number] Jul, Urinary tract infection without hematuria, site unspecified N39.0 and Fatigue, unspecified type R53.83 [facility] [address] [place] [address] [id number] Jul, Chronic airway obstruction, not elsewhere classified J44.9 [facility] [id number] [place] [address] [id number] Jul, BMI 45.0-49.9, adult Z68.42 and Infective urethritis N34.2 [facility] [id number] [place] [address] [id number] Jul, [facility] [id number] [place] [address] [phone] Jun, Back pain with left-sided radiculopathy M54.10 [facility] [address] [id number] [id number] 13 May, 2017 Chronic airway obstruction, not elsewhere classified J44.9 and Encounter for immunization Z23 [facility] [id number] [place] [address] [id number] Apr, BMI 45.0-49.9, adult Z68.42 ; Back pain with left-sided radiculopathy M54.10 ; Chronic airway obstruction, not elsewhere classified J44.9 and Dysthymia F34.1 [facility] [id number] [place] [address] [id number] Mar, Sciatica of left side M54.32 ; Back pain with left-sided radiculopathy M54.10 and Hereditary and idiopathic neuropathy, 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 [facility] [id number] [place] [address] [id number] Mar, Flank pain R10.9 ; Urinary urgency R39.15 and Chronic airway obstruction, not elsewhere classified J44.9 [facility] [id number] [place] [address] [id number] Mar, Dysthymia F34.1 [facility] [address] [facility] [address] [id number][place] [id number] Feb, [facility] [address]00565100[place] [address] Feb, [facility] [id number], [place] [phone] Feb, Hematuria, unspecified type R31.9 ; Kidney stone N20.0 and BMI 40.0-44.9, adult Z68.41 [facility] [address] [facility] [id number], [place] [address] Feb, [facility] [address] [id number][place] [id number] Feb, [facility] [id number] [place] [address] [phone] Feb, [facility] [id number] [place] [address] [id number] Feb, Dysthymia F34.1 ; Encounter for immunization Z23 ; Acute nasopharyngitis J00 ; Chronic rhinitis J31.0 and Chronic airway obstruction, not elsewhere classified J44.9 [facility] [address] [address] Jan, Well woman exam Z01.419 ; Left breast lump N63.20 and BMI 40.0-44.9, adult Z68.41 [facility] [address] [id number] Jan, Muscle cramps R25.2 [facility] [address] [id number] Dec, Dysthymia F34.1 [facility] [address] [id number] Dec, Muscle cramps R25.2 [facility] [address] [id number] Nov, Dysthymia F34.1 [facility] [address] [id number] Oct, [facility] [address] [id number] Oct, Chronic airway obstruction, not elsewhere classified J44.9 ; Moderate single current episode of major depressive disorder F32.1 ; Chronic rhinitis J31.0 and Muscle cramps R25.2 [facility] [address] [id number] Sep, Acute nasopharyngitis J00 [facility] [id number] [place] [address] Jun, Acute exacerbation of chronic obstructive pulmonary disease (COPD) J44.1 [facility] [address] [id number] Jun, Acute nasopharyngitis J00 [facility] [address] [id number] Jun, [facility] [address] [address] Apr, [facility] [id number], [place] [id number] Mar, Acute nasopharyngitis J00 [facility] [id number] [place] [address] [id number] Mar, [facility] [id number], [place] [id number] Mar, [facility] [id number] [place] [address] [id number] Feb, CAP (community acquired pneumonia) J18.9 and Chronic rhinitis J31.0 [facility] [id number] [place] [address] [id number] Feb, CAP (community acquired pneumonia) J18.9 [facility] [id number] [place] [address] [id number] Feb, CAP (community acquired pneumonia) J18.9 [facility] [id number] [place] [address] [id number] Feb, [facility] [id number] [place] [address] [phone] Jan, Mood disorder F39 [facility] [address] [id number], [place] [address] Jan, [facility] [id number], [place] 759158032 Jan, Lung nodule R91.1 [facility] [id number], [place] 1980[address] Jan, Lung nodule R91.1 [facility] [id number], [place] [id number] Jan, Lung nodule R91.1 [facility] [id number], [place] 764347960 Jan, Lung nodule R91.1 [facility] [id number], [place] [id number] Jan, [facility] [id number], [place] [id number] Nov, Overactive bladder N32.81 ; Chronic airway obstruction, not elsewhere classified J44.9 and Essential hypertension I10 [address] [id number] Oct, [address] [id number] Oct, Acute non-recurrent sinusitis, unspecified location J01.90 ; Cough R05 and Tobacco dependence F17.[address] [id number] Sep, Overactive bladder N32.81 and Chronic airway obstruction, not elsewhere classified J44.[address] [id number] August, Chronic airway obstruction, not elsewhere classified J44.9 ; Mood disorder F39 and Urinary frequency R35.[address] [id number] August, [address] [id number] Jul, Lung nodule R91.1 ; Chronic airway obstruction, not elsewhere classified J44.9 and Urinary tract infection without hematuria, site unspecified N39.[address] [id number] Jul, Lung nodule R91.[address] [id number] Jul, [address] [id number] Jul, Diarrhea R19.7 and Lung nodule R91.[address] [id number] Apr, Upper respiratory tract infection, unspecified type J06.9 and COPD exacerbation J44.[address] [id number] Mar, [address] [id number] Feb, Mood disorder F39 and Essential hypertension I10 [address] [id number] Jan, Essential hypertension I10 ; Mood disorder F39 ; Chronic airway obstruction, not elsewhere classified J44.9 and Chronic rhinitis J31.0 [facility] [address] [id number], [place] [address] Jan, [facility] [address] [id number] [id number] Jan, [facility] [address] [facility] [id number][place] [id number] Jan, [facility] [address] [facility][1] [id number] [id number] Jan, [facility] [id number], [place] [id number] Dec, Bronchitis 490 [facility] [address] [facility] [id number], [place] [id number] Dec, [facility] [id number], [place] 612[address]4421 Sep, Rhinitis 472.0 [facility] [place] [facility] [address] [place] [address]- 80[address] Jul, [facility] [place] [facility] [address] [place] [address] 19656- 6076 Jul, [facility] [address] [id number], [place] [id number] Jun, [facility] [place] [facility] [id number] [place] [address]- 4746 Jun, [facility] [place] [facility] [id number] [place] [address] 827[address]- 7066 Jun, [facility] [id number], [place] [id number] May, [facility] [place] [facility] [address] [id number], [place] [address] May, [facility] [address] [id number], [place] [id number] Apr, [facility] [place] [facility] [address] [facility] [id number] [place] [address] Apr, [facility] [address] [id number] [place] [id number] Mar, [facility] [place] [facility] [address] [facility] [id number] [place] [address]- 2166 Mar, [facility] [address] [facility][1] [id number] [place] [id number] Mar, [facility] [place] [facility] [address] [facility] [id number] [place] [address]- 295[address] Mar, [facility] [address] [facility][1] [id number] [place] [id number] Mar, [facility] [place] [facility] [address] [facility] [id number] [place] [address] Mar, [facility] [address] [facility][1] [id number] [place] [id number] Mar, [facility] [place] [facility] [address] [facility] [id number], [place] [address] 48[address] Mar, [facility] [address] [facility][1] [id number] [place] 6353218[address] Feb, [facility] [place] [facility] [address] [facility] [id number], [place] [address] 47[address] Feb, [facility] [address] [facility][1] [id number] [place] [id number] Feb, [facility] [place] [facility] [address] [facility] [id number], [place] [address] Feb, [facility] [address] [facility][1] [id number], [place] 198863181 Feb, [facility] [place] [facility] [address] [facility] [id number] [place] [address]- [address] Feb, [facility] [address] [facility][1] [id number], [place] 972644777 Jan, [facility] [place] [facility] [address] [facility] [id number][place] [address] Jan, [facility] [address] [facility][1] [id number] [place] [id number] Jan, [facility] [place] [facility] [address] [facility] [id number] [place] [address]- 1216 Jan, [facility] [address] [facility][1] [id number] [place] 016239894 Sep, [facility] [place] [facility] [address] [facility] [id number], [place] [address] Sep, [facility] [place] [facility] [address] [facility] [id number] [place] [address]- 9[address] Sep, [facility] [address] [facility][1] [id number] [place] [id number] Sep, [facility] [place] [facility] [address] [facility] [id number], [place] [address]- [address] Sep, [facility] [place] [facility] [address] [facility] [id number][place] [address]- 49[address] Sep, [facility] [address] [facility][1] [id number], [place] 864913687 Jul, [facility] [place] [facility] [address] [facility] [id number], [place] [address] 8347 Jul, [facility] [address] [facility][1] [id number], [place] 910802241 Jun, [facility] [place] [facility] [address] [facility] [id number], [place] [address]- 88[address] Jun, [facility] [address] [facility][1] [id number], [place] 213633561 Jun, [facility] [place] [facility] [address] [facility] [id number], [place] [address]- 16[address] Jun, [facility] [address] [facility][1] [id number], [place] 393252928 Apr, [facility] [place] [facility] [address] [facility] [id number], [place] [address]- 8066 Apr, [facility] [address] [facility][1] [id number], [place] 806601400 Mar, [facility] [address] [facility] [id number], [place] [address]- 5[address] Mar, [facility] [address] [id number] [place] [id number] Mar, [facility] [address] [facility] [id number], [place] [address]- [address]26 Mar, [facility] [address] [id number] [place] [id number] Feb, [facility] [address] [facility] [id number][place] [address]- 6[address] Feb, [facility] [address] [id number], [place] 827613071 Jan, [facility] [place] [facility] [address] [facility] [id number], [place] [address]- [address] Jan, [facility] [address] [id number], [place] 077981443 Dec, [facility] [address] [facility] [id number], [place] [address]- [address]26 Dec, [facility] [address] [id number], [place] 664438337 Dec, [facility] [address] [id number], [place] 616919402 Dec, [facility] [address] [id number], [place] 029426517 Oct, [facility] [address] [facility] [id number][place] [address]- 6[address] Oct, [facility] [place] [facility] [address] [facility] [id number][place] [address]- 4733 Oct, [facility] [address] [id number], [place] 491532016 Oct, [facility] [address] [id number], [place] 811628424 Sep, [facility] [address] [id number], [place] 006915195 August, [facility] [address] [id number] [place] 114939859 August, [facility] [address] [id number] [place] 522841316 August, [facility] [address] [id number] [place] [id number] Jul, [facility] [address] [facility] [id number] [place] [address]- 2546 Jul, [facility] [address] [id number] [place] [id number] Jul, [facility] [address] [id number] [place] 587999174 Jun, [facility] [address] [facility] [id number] [place] [address]- 2546 Jun, [facility] [address] [id number] [place] 557151553 Jun, [facility] [address] [id number] [place] [id number] Jun, [facility] [address] [id number] [place] [id number] Jun, [facility] [address] [id number] [place] 194012313 Jun, [facility] [address] [id number] [place] [id number] Jun, [facility] [address] [id number] [place] [id number] Feb, [facility] [address] [facility] [id number], [place] [address]- 2546 Feb, [facility] [address] [id number] [place] [id number] Jan, [facility] [address] [id number] [place] 997330017 Nov, [facility] [address] [id number] [place] 816792050 Oct, [facility] [address] [id number] [place] [id number] Oct, [facility] [address] [facility][1] [id number] [place] [id number] Sep, [facility] [address] [facility] [id number] [place] [address]- [address] Mar, [facility] [address] [facility] [id number] [place] [address]- 2546 Nov, IMMUNIZATIONS No Known Immunizations SOCIAL HISTORY Never Assessed REASON FOR VISIT Medication refill request PLAN OF CARE VITAL SIGNS MEDICATIONS Medication Instructions Dosage Frequency Start Date End Date Duration Status Wellbutrin SR 150 mg Orally Twice a day 1 tablet 12h Sep, Active Prazosin HCl 2 MG Orally Once a day 2 capsule at bedtime 24h Oct, Active Anoro Ellipta 62.5-25 MCG/INH Inhalation Once a day 1 puff 24h 05 Dec, 2017 Active RESULTS No Results PROCEDURES No Known procedures INSTRUCTIONS MEDICATIONS ADMINISTERED No Known Medications MEDICAL (GENERAL) HISTORY Type Description Date Medical History hypertension Medical History allergies Medical History chronic obstructive pulmonary disease (COPD) Medical History anxiety Medical History sciatica Medical History acid reflux Medical History Pneumococcal inj (2012) Medical History depression Surgical History cholecystectomy 1979 Hospitalization History [facility] for pneumonia 2012 Hospitalization History Via [facility] x 3 days for stomach flu 07/24/15 Hospitalization History [facility] for [facility]-given mag citrate for "blockage" 03/09/2016
--- OUTSIDE RECORDS SUMMARY | 2018-04-15 01:18 | XMS REPORT ---
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 31237588 Problem Sciatica of left side M54.32 Active 64923777 Problem Back pain with left-sided radiculopathy M54.10 Active 304681150 Problem PTSD (post-traumatic stress disorder) F43.10 Active 02505797 Problem Hereditary and idiopathic neuropathy, 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 Active 76820672 Problem Female stress incontinence 625.6 Active 62809721 Problem Essential hypertension I10 Active 74815995 Problem Chronic airway obstruction, not elsewhere classified J44.9 Active 81033486 Problem Nondependent tobacco use disorder 305.1 Active 876642831 Problem Lung nodule R91.1 Active 183108951 Problem Chronic rhinitis J31.0 Active 92624334 Problem Overactive bladder N32.81 Active 208683005 ALLERGIES No Information ENCOUNTERS Encounter Location Date Diagnosis [facility] [address] [facility] [id number] [address] Mar, [facility] [address]00565100[place], [place] [address] 2544 Mar, [facility] [address] [facility] [id number] [id number] Feb, [facility] [address] [id number], [place] [id number] Jan, Encounter for immunization Z23 [facility] [id number] [place] [address] [id number] Jan, Dysthymia F34.1 [facility] [id number] [place] [address] [phone] 1223 Jan, PTSD (post-traumatic stress disorder) F43.10 and 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 [facility] [id number] [place] [address] [id number] Jan, BMI 45.0-49.9, adult Z68.42 and PTSD (post-traumatic stress disorder) F43.10 [facility] [id number] [place] [address] [id number] Jan, BMI 45.0-49.9, adult Z68.42 and Chronic airway obstruction, not elsewhere classified J44.9 [facility] [id number] [place] [address] [id number] Dec, PTSD (post-traumatic stress disorder) F43.10 ; Chronic airway obstruction , not elsewhere classified J44.9 ; Dysthymia F34.1 and Thrush B37.0 [facility] [id number] [place] [address] [id number] Nov, Dysthymia F34.1 [facility] [address]00565100[place], [place] [address] Nov, PTSD (post-traumatic stress disorder) F43.10 and 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 [facility] [id number] [place] [address] [id number] Nov, BMI 45.0-49.9, adult Z68.42 ; Strain of lumbar region, subsequent encounter S39.012D ; PTSD (post-traumatic stress disorder) F43.10 and Dysthymia F34.1 [facility] [id number] [place] [address] [id number] Oct, [facility] [id number] [place] [address] [id number] Oct, Dysthymia F34.1 and PTSD (post-traumatic stress disorder) F43.10 [facility] [place] [id number], [place] [id number] Oct, BMI 45.0-49.9, adult Z68.42 ; Dysthymia F34.1 ; PTSD (post-traumatic stress disorder) F43.10 and Infective urethritis N34.2 [facility] [address] [id number][place] [id number] Oct, Dysthymia F34.1 and PTSD (post-traumatic stress disorder) F43.10 [facility] [address] [id number][place] [id number] Sep, Dysthymia F34.1 and PTSD (post-traumatic stress disorder) F43.10 [facility] [place] [id number] [place] [address] [id number] Sep, BMI 45.0-49.9, adult Z68.42 and Mood disorder F39 [facility] [id number] [place] [address] [id number] Sep, [facility] [id number] [place] [address] [id number] Sep, Dysthymia F34.1 [facility] [id number] [place] [address] [id number] Sep, Mood disorder F39 [facility] [address] [id number], [place] [id number] August, Dysthymia F34.1 [facility] [id number] [place] [address] [id number] August, Dysthymia F34.1 ; Chronic airway obstruction, not elsewhere classified J44.9 ; Back pain with left-sided radiculopathy M54.10 and BMI 45.0-49.9, adult Z68.42 [facility] [address] [place] [address] [id number] Jul, Urinary tract infection without hematuria, site unspecified N39.0 and Fatigue, unspecified type R53.83 [facility] [address] [id number] [phone] Jul, Chronic airway obstruction, not elsewhere classified J44.9 [facility] [place] [id number], [place] [id number] Jul, BMI 45.0-49.9, adult Z68.42 and Infective urethritis N34.2 [facility] [place] [id number] [place] [address] [id number] Jul, [facility] [place] [id number] [place] [address] [id number] Jun, Back pain with left-sided radiculopathy M54.10 [facility] [place] [id number] [place] [address] [id number] May, Chronic airway obstruction, not elsewhere classified J44.9 and Encounter for immunization Z23 [facility] [place] [id number] [place] [address] [id number] Apr, BMI 45.0-49.9, adult Z68.42 ; Back pain with left-sided radiculopathy M54.10 ; Chronic airway obstruction, not elsewhere classified J44.9 and Dysthymia F34.1 [facility] [place] [id number] [place] [address] [id number] Mar, Sciatica of left side M54.32 ; Back pain with left-sided radiculopathy M54.10 and Hereditary and idiopathic neuropathy, 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 [facility] [place] [id number], [place] [id number] Mar, Flank pain R10.9 ; Urinary urgency R39.15 and Chronic airway obstruction, not elsewhere classified J44.9 [facility] [place] [address] [facility] [id number], [place] [id number] Mar, Dysthymia F34.1 [facility] [address] [facility] [id number][place] [id number] Feb, [facility] [address] [facility] [id number][place] [address] Feb, [facility] [place] [id number] [place] [address] [id number] Feb, Hematuria, unspecified type R31.9 ; Kidney stone N20.0 and BMI 40.0-44.9, adult Z68.41 [facility] [address] [place], [place] [id number], [place] [address] Feb, [place] [address] [facility] [address] [id number][place] [phone] Feb, [facility] [id number], [place] [phone] Feb, [facility] [id number], [place] [id number] Feb, Dysthymia F34.1 ; Encounter for immunization Z23 ; Acute nasopharyngitis J00 ; Chronic rhinitis J31.0 and Chronic airway obstruction, not elsewhere classified J44.9 [facility] [address]00565100[place], [place] [address] [address] Jan, Well woman exam Z01.419 ; Left breast lump N63.20 and BMI 40.0-44.9, adult Z68.41 [facility] [id number], [place] [id number] Jan, Muscle cramps R25.2 [facility] [id number], [place] [id number] Dec, Dysthymia F34.1 [facility] [id number], [place] [id number] Dec, Muscle cramps R25.2 [facility] [id number], [place] [id number] Nov, Dysthymia F34.1 [facility] [id number], [place] [id number] Oct, [facility] [id number] [place] [address] [id number] Oct, Chronic airway obstruction, not elsewhere classified J44.9 ; Moderate single current episode of major depressive disorder F32.1 ; Chronic rhinitis J31.0 and Muscle cramps R25.2 [facility] [address] [id number], [place] [phone] Sep, Acute nasopharyngitis J00 [facility] [address]00565100[place], [place] [address] Jun, Acute exacerbation of chronic obstructive pulmonary disease (COPD) J44.1 [facility] [id number] [place] [address] [phone] Jun, Acute nasopharyngitis J00 [facility] [id number] [place] [address] [id number] Jun, [facility] [id number] [place] [address]- 9732 Apr, [facility] [id number] [place] [address] [id number] Mar, Acute nasopharyngitis J00 [facility] [id number] [place] [address] [id number] Mar, [facility] [id number] [place] [address] [id number] Mar, [facility] [id number] [place] [address] [id number] Feb, CAP (community acquired pneumonia) J18.9 and Chronic rhinitis J31.0 [facility] [id number] [place] [address] [id number] Feb, CAP (community acquired pneumonia) J18.9 [facility] [id number] [place] [address] [id number] Feb, CAP (community acquired pneumonia) J18.9 [facility] [id number] [place] [address] [id number] Feb, [facility] [id number] [place] [address] [id number] Jan, Mood disorder F39 [facility] [address]00565100[place], [place] [address]57[address]- [address] Jan, [facility] [id number] [place] [address] [id number] Jan, Lung nodule R91.1 [facility] [id number] [place] [address] [id number] Jan, Lung nodule R91.1 [facility] [id number] [place] [address] [id number] Jan, Lung nodule R91.1 [facility] [id number] [place] [address] [id number] Jan, Lung nodule R91.1 [id number] [place] [address] [id number] Jan, [facility] [id number] [place] [address] [id number] Nov, Overactive bladder N32.81 ; Chronic airway obstruction, not elsewhere classified J44.9 and Essential hypertension I10 [id number] [place] [address] [id number] Oct, [id number] [place] [address] [id number] Oct, Acute non-recurrent sinusitis, unspecified location J01.90 ; Cough R05 and Tobacco dependence F17.200 [id number] [place] [address] [id number] Sep, Overactive bladder N32.81 and Chronic airway obstruction, not elsewhere classified J44.9 [id number] [place] [address] [id number] August, Chronic airway obstruction, not elsewhere classified J44.9 ; Mood disorder F39 and Urinary frequency R35.0 [address] [place] [address] [id number] August, [id number] [place] [address] [id number] Jul, Lung nodule R91.1 ; Chronic airway obstruction, not elsewhere classified J44.9 and Urinary tract infection without hematuria, site unspecified N39.0 [facility] [id number] [place] [address] [id number] Jul, Lung nodule R91.1 [address] [place] [address] [id number] Jul, [address] [id number] [id number] Jul, Diarrhea R19.7 and Lung nodule R91.1 [id number] [place] [address] [id number] Apr, Upper respiratory tract infection, unspecified type J06.9 and COPD exacerbation J44.1 [facility] [id number] [place] [address] [id number] Mar, [id number] [place] [address] [id number] Feb, Mood disorder F39 and Essential hypertension I10 [id number] [place] [address] [id number] Jan, Essential hypertension I10 ; Mood disorder F39 ; Chronic airway obstruction, not elsewhere classified J44.9 and Chronic rhinitis J31.0 [address] [place] [address] [id number] Jan, [address]00565[place] [id number] Jan, [facility] [address] [id number], [place] [phone] Jan, [id number] [place] [address] [id number] Jan, [id number] [place] [address] [id number] Dec, Bronchitis [address] [place] [address] [id number] Dec, [facility] [place] [id number] [place] [address] [id number] Sep, Rhinitis 472.0 [facility] [id number] [place] [address] [id number]- 4492 Jul, [facility] [id number] [place] [address] [id number]- 0629 Jul, [address] [place] [address] [id number] Jun, [facility] [address] [id number] [address] Jun, [facility] [place] [facility] [address] [facility] [id number], [place] [address]- 8286 Jun, [facility] [address] [facility] [id number] [place] [id number] May, [facility] [place] [facility] [address] [facility] [id number], [place] [address]26 May, [facility] [address] [facility] [id number] [place] [id number] Apr, [facility] [place] [facility] [address] [facility] [id number] [place] [address]- 3576 Apr, [facility] [address] [facility] [id number], [place] [id number] Mar, [facility] [address] [facility] [id number], [place] [address] 2626 Mar, [facility] [address] [facility] [id number], [place] [id number] Mar, [facility] [place] [facility] [address] [facility] [id number], [place] [address] 2316 Mar, [facility] [address] [facility] [id number], [place] [id number] Mar, [facility] [place] [facility] [address] [facility] [id number], [place] [address]- 6886 Mar, [facility] [address] [facility] [id number], [place] [id number] Mar, [facility] [place] [facility] [address] [facility] [id number], [place] [address]- 2546 Mar, [facility] [address] [facility] [id number], [place] [id number] Feb, [facility] [place] [facility] [address] [facility] [id number], [place] [address]- 9736 Feb, [facility] [address] [facility] [id number], [place] [id number] Feb, [facility] [place] [facility] [address] [facility] [id number][place] [address]- 7286 Feb, [facility] [address] [facility] [id number] [place] [id number] Feb, [facility] [place] [facility] [address] [facility] [id number] [place] [address]- 6756 Feb, [facility] [address] [facility] [id number] [place] [id number] Jan, [facility] [place] [facility] [address] [facility] [id number] [place] [address]- 8886 Jan, [facility] [address] [facility] [id number] [place] [id number] Jan, [facility] [place] [facility] [address] [id number], [place] [address] 2546 Jan, [facility] [address] [id number], [place] [id number] Sep, [facility] [place] [facility] [address] [facility] [id number][place] [address]- 2015 Sep, [facility] [place] [facility] [address]00565100[place], [place] [address]- 2726 Sep, [facility] [address] [facility] [id number], [place] [id number] Sep, [facility] [place] [facility] [address]00565100[place], [place] [address]- 1364 Sep, [facility] [place] [facility] [address] [facility] [id number], [place] [address]- 7321 Sep, [facility] [address] [facility] [id number], [place] [id number] Jul, [facility] [place] [facility] [address] [facility] [id number], [place] [address]- 7276 Jul, [facility] [address] [facility] [id number] [place] [id number] Jun, [facility] [place] [facility] [address] [facility] [id number], [place] [address]- 2546 Jun, [facility] [address] [id number] [place] [id number] Jun, [facility] [address] [facility] [id number][place] [address]- 2546 Jun, [facility] [address] [id number] [place] [id number] Apr, [facility] [address] [facility] [id number], [place] [address]- 2926 Apr, [facility] [address] [id number] [place] [id number] Mar, [facility] [address]00565100[place], [place] [address]- 5946 Mar, [facility] [id number], [place] [id number] Mar, [facility] [address]00565100[place], [place] [address]- 0606 Mar, [facility] [address] [id number], [place] 077481530 Feb, [facility] [address]00565100[place], [place] [address]- 5766 Feb, [facility] [address] [id number], [place] [id number] Jan, [facility] [address] [id number], [place] [address]- 2546 Jan, [facility] [address] [id number], [place] [id number] 30 Dec, 2012 [facility] [place] [facility] [address] [facility] [id number], [place] [address]- 2546 16 Dec, 2012 [facility] [address] [id number] [place] [id number] 09 Dec, 2012 [facility] [address] [id number] [place] [id number] 05 Dec, 2012 [facility] [address] [id number], [place] [id number] Oct, [facility] [address] [facility] [id number] [place] [address]- 5426 Oct, [facility] [address] [facility] [id number], [place] [address]- 2546 Oct, [facility] [address] [id number] [place] [id number] Oct, [facility] [address] [id number] [place] [id number] Sep, [facility] [address] [id number] [place] [id number] August, [facility] [address] [id number] [place] [id number] August, [facility] [address] [id number] [place] [id number] August, [facility] [address] [id number] [place] [id number] Jul, [facility] [address] [facility] [id number], [place] [address]- 2546 Jul, [facility] [address] [id number] [place] [id number] Jul, [facility] [address] [id number] [place] [id number] Jun, [facility] [address] [facility] [id number], [place] [address]- 2546 Jun, [facility] [address] [id number] [place] [id number] Jun, [facility] [address] [id number] [place] [id number] Jun, [facility] [address] [id number] [place] 089372818 Jun, [facility] [address] [id number] [place] [id number] Jun, [facility] [address] [id number] [place] [id number] Jun, [facility] [address] [id number], [place] [id number] Feb, [facility] [id number] [address] Feb, [facility] [address] [id number] [id number] Jan, [facility] [address] [id number] [id number] Nov, [facility] [id number] [id number] Oct, [facility] [id number] [id number] Oct, [facility] [id number] [id number] Sep, [facility] [id number], [place] [address] Mar, [facility] [id number], [place] [address] Nov, IMMUNIZATIONS No Known Immunizations SOCIAL HISTORY Never Assessed REASON FOR VISIT Refill request PLAN OF CARE VITAL SIGNS MEDICATIONS Medication Instructions Dosage Frequency Start Date End Date Duration Status HydrOXYzine HCl 25 MG Orally at bedtime as needed 1-2 tablet as needed fro sleep 30 days Active RESULTS No Results PROCEDURES No Known procedures INSTRUCTIONS MEDICATIONS ADMINISTERED No Known Medications MEDICAL (GENERAL) HISTORY Type Description Date Medical History hypertension Medical History allergies Medical History chronic obstructive pulmonary disease (COPD) Medical History anxiety Medical History sciatica Medical History acid reflux Medical History Pneumococcal inj (2012) Medical History depression Surgical History cholecystectomy 1979 Hospitalization History Via [facility] for pneumonia 2012 Hospitalization History [facility] x 3 days for stomach flu 07/24/15 Hospitalization History [facility] for [facility]-given mag citrate for "blockage" 03/09/2016
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
--- OUTSIDE RECORDS SUMMARY | 2018-04-15 01:19 | XMS REPORT ---
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 50446749 Problem Sciatica of left side M54.32 Active 36289404 Problem Back pain with left-sided radiculopathy M54.10 Active 241477878 Problem PTSD (post-traumatic stress disorder) F43.10 Active 88720076 Problem Hereditary and idiopathic neuropathy, 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 Active 89789771 Problem Female stress incontinence 625.6 Active 09340397 Problem Essential hypertension I10 Active 83253552 Problem Chronic airway obstruction, not elsewhere classified J44.9 Active 33252835 Problem Nondependent tobacco use disorder 305.1 Active 591093119 Problem Lung nodule R91.1 Active 390482609 Problem Chronic rhinitis J31.0 Active 23285702 Problem Overactive bladder N32.81 Active 114718262 ALLERGIES No Information ENCOUNTERS Encounter Location Date Diagnosis [facility] [address] [facility] [id number] [place] [address] Jan, [facility] [address] [facility] [id number][place] [id number] Jan, [facility] 120 [facility] [id number][place] [address] Dec, PTSD (post-traumatic stress disorder) F43.10 ; Chronic airway obstruction , not elsewhere classified J44.9 ; Dysthymia F34.1 and Thrush B37.0 [facility] [id number][place] [address] Nov, Dysthymia F34.1 [facility] [address]00565[address] [address] Nov, PTSD (post-traumatic stress disorder) F43.10 and 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 [address] [place] [address] [id number] Nov, BMI 45.0-49.9, adult Z68.42 ; Strain of lumbar region, subsequent encounter S39.012D ; PTSD (post-traumatic stress disorder) F43.10 and Dysthymia F34.[address] [place] [address] [id number] Oct, [address]00565100[place] [id number] Oct, Dysthymia F34.1 and PTSD (post-traumatic stress disorder) F43.10 [address]00565100[place] [id number] Oct, BMI 45.0-49.9, adult Z68.42 ; Dysthymia F34.1 ; PTSD (post-traumatic stress disorder) F43.10 and Infective urethritis N34.2 [facility] [address] [id number] [id number] Oct, Dysthymia F34.1 and PTSD (post-traumatic stress disorder) F43.10 [facility] [address] [id number][place] [address] Sep, Dysthymia F34.1 and PTSD (post-traumatic stress disorder) F43.10 [address]00565100[place] [address] Sep, BMI 45.0-49.9, adult Z68.42 and Mood disorder F39 [address]00565100[place], [place] [address] Sep, [facility] [address] [id number][place] [id number] Sep, Dysthymia F34.1 [address]00565100[place] [id number] Sep, Mood disorder F39 [facility] [place] [address] [facility] [id number][place] [address] August, Dysthymia F34.1 [place] [id number] [place] [address] [id number] August, Dysthymia F34.1 ; Chronic airway obstruction, not elsewhere classified J44.9 ; Back pain with left-sided radiculopathy M54.10 and BMI 45.0-49.9, adult Z68.42 [place] [id number] [place] [address] [id number] Jul, Urinary tract infection without hematuria, site unspecified N39.0 and Fatigue, unspecified type R53.83 [place] [id number] [place] [address] [id number] Jul, Chronic airway obstruction, not elsewhere classified J44.9 [address] [place] [address] [id number] Jul, BMI 45.0-49.9, adult Z68.42 and Infective urethritis N34.[address] [place] [address] [id number] Jul, [place] [id number] [place] [address] [id number] Jun, Back pain with left-sided radiculopathy M54.10 [address] [place] [address] [id number] May, Chronic airway obstruction, not elsewhere classified J44.9 and Encounter for immunization Z23 [place] [id number] [place] [address] [id number] Apr, BMI 45.0-49.9, adult Z68.42 ; Back pain with left-sided radiculopathy M54.10 ; Chronic airway obstruction, not elsewhere classified J44.9 and Dysthymia F34.1 [facility] [id number], [place] [address] Mar, Sciatica of left side M54.32 ; Back pain with left-sided radiculopathy M54.10 and Hereditary and idiopathic neuropathy, 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 [facility] [id number] [place] [address] [id number] Mar, Flank pain R10.9 ; Urinary urgency R39.15 and Chronic airway obstruction, not elsewhere classified J44.9 [facility] [id number] [place] [address] [id number] Mar, Dysthymia F34.1 [facility] [address] [facility] [id number] [place] [address] [id number] Feb, [facility] [address] [place] [address] Feb, [facility] [id number] [place] [address] [id number] Feb, Hematuria, unspecified type R31.9 ; Kidney stone N20.0 and BMI 40.0-44.9, adult Z68.41 [facility] [address] [place] [id number] [place] [address] Feb, [facility] [address] [facility] [address] [id number][place] [id number] Feb, [facility] [id number] [place] [address] [id number] Feb, [facility] [id number] [place] [address] [id number] Feb, Dysthymia F34.1 ; Encounter for immunization Z23 ; Acute nasopharyngitis J00 ; Chronic rhinitis J31.0 and Chronic airway obstruction, not elsewhere classified J44.9 [facility] [id number] [place] [address] Jan, Well woman exam Z01.419 ; Left breast lump N63.20 and BMI 40.0-44.9, adult Z68.41 [facility] 120 [facility] [address] [id number], [place] [id number] Jan, Muscle cramps R25.2 [facility] [id number] [place] [address] [id number] Dec, Dysthymia F34.1 [facility] [id number] [place] [address] [id number] Dec, Muscle cramps R25.2 [facility] [id number] [place] [address] [id number] Nov, Dysthymia F34.1 [facility] [id number] [place] [address] [id number] Oct, [facility] [id number] [place] [address] [id number] Oct, Chronic airway obstruction, not elsewhere classified J44.9 ; Moderate single current episode of major depressive disorder F32.1 ; Chronic rhinitis J31.0 and Muscle cramps R25.2 [facility] [address] [id number] [place] [address] [id number] Sep, Acute nasopharyngitis J00 [facility] WALK IN [facility] [address]00565100[place], [place] [address] Jun, Acute exacerbation of chronic obstructive pulmonary disease (COPD) J44.1 [facility] [id number] [place] [address] [id number] Jun, Acute nasopharyngitis J00 [facility] [id number], [place] [id number] Jun, [facility] [address]00565100[place], [place] [address]46 Apr, [facility] [address] [id number], [place] [address]015[address]202 Mar, Acute nasopharyngitis J00 [facility] [address] [id number], [place] [id number] Mar, [facility] [address] [id number], [place] [id number] Mar, [facility] [address] [place] [address] [id number] Feb, CAP (community acquired pneumonia) J18.9 and Chronic rhinitis J31.0 [place] [id number] [place] [address] [id number] Feb, CAP (community acquired pneumonia) J18.9 [facility] [address] [place] [address] [id number] Feb, CAP (community acquired pneumonia) J18.9 [place] [id number] [place] [address] [id number] Feb, [place] [id number] [place] [address] [id number] Jan, Mood disorder F39 [facility] [id number] [place] [address] 354[address] Jan, [place] [id number] [place] [address] [id number] Jan, Lung nodule R91.1 [place] [address] [place] [address] [id number] Jan, Lung nodule R91.1 [place] [address] [place] [address] [id number] Jan, Lung nodule R91.1 [place] [address] [place] [address] [id number] Jan, Lung nodule R91.1 [address] [place] [address] [id number] Jan, [place] [address] [place] [address] [id number] Nov, Overactive bladder N32.81 ; Chronic airway obstruction, not elsewhere classified J44.9 and Essential hypertension I10 [address] [id number] Oct, [address] [id number] Oct, Acute non-recurrent sinusitis, unspecified location J01.90 ; Cough R05 and Tobacco dependence F17.[address] [id number] Sep, Overactive bladder N32.81 and Chronic airway obstruction, not elsewhere classified J44.9 [place] [address] [place] [address] [id number] August, Chronic airway obstruction, not elsewhere classified J44.9 ; Mood disorder F39 and Urinary frequency R35.0 [place] [address] [place] [address] [id number] August, [address] [id number] Jul, Lung nodule R91.1 ; Chronic airway obstruction, not elsewhere classified J44.9 and Urinary tract infection without hematuria, site unspecified N39.0 [place] [address] [place] [address] [id number] Jul, Lung nodule R91.1 [place] [address] [place] [address] [id number] Jul, [address] [id number] Jul, Diarrhea R19.7 and Lung nodule R91.1 [place] [address] [place] [address] [id number] Apr, Upper respiratory tract infection, unspecified type J06.9 and COPD exacerbation J44.1 [address] [place] [address] [id number] Mar, [place] [address] [place] [address] [id number] Feb, Mood disorder F39 and Essential hypertension I10 [address] [place] [address] [id number] Jan, Essential hypertension I10 ; Mood disorder F39 ; Chronic airway obstruction, not elsewhere classified J44.9 and Chronic rhinitis J31.0 [address] [place] [address] [id number] Jan, [facility] [address] [place] [id number] Jan, [facility] [place] [address] [facility] [id number][place] [phone] Jan, [facility] [address] [facility] [id number][place] [id number] Jan, [facility] [address] [place] [id number], [place] [id number] Dec, [place] [address] [facility] [address] [place] [place] [id number] [id number] Dec, [facility] [id number], [place] [id number] Sep, Rhinitis 472.0 [facility] [place] [facility] [address]00565100[place], [place] [address] Jul, [facility] [place] [facility] [address]00565100[place], [place] [address] Jul, [facility] [id number], [place] [id number] Jun, [facility] [place] [facility] [address]00565100[place], [place] [address]- 7[address] Jun, [facility] [place] [facility] [address]00565100[place], [place] [address]- 0[address] Jun, [facility] [address] [place] [id number], [place] [id number] May, [facility] [place] [facility] [address]00565100[place], [place] [address]- [address] May, [facility] [address] [place] [id number], [place] [id number] Apr, [facility] [place] [facility] [address] [id number], [place] [address] Apr, [facility] [address] [place] [address] [id number], [place] [id number] Mar, [facility] [place] [facility] [address] [id number], [place] [address]- [address] Mar, [facility] [address] [facility] [id number], [place] [id number] Mar, [facility] [place] [facility] [address] [facility] [id number] [place] [address]- 7[address] Mar, [facility] [address] [id number] [place] [id number] Mar, [facility] [place] [facility] [address] [facility] [id number], [place] [address]- 27[address] Mar, [facility] [address] [id number] [place] 645449354 Mar, [facility] [place] [facility] [address] [facility] [id number][place] [address]- 9[address] Mar, [facility] [address] [id number] [place] [id number] Feb, [facility] [place] [facility] [address] [id number], [place] [address]- 7471 Feb, [facility] [address] [facility] [id number], [place] [id number] Feb, [facility] [place] [facility] [address] [facility] [id number], [place] [address]- 97[address] Feb, [facility] [address] [facility] [id number], [place] [id number] Feb, [facility] [place] [facility] [address] [facility] [id number], [place] [address]- 7589 Feb, [facility] [address] [facility] [id number], [place] [id number] Jan, [facility] [place] [facility] [address] [facility] [id number], [place] [address]- 2481 Jan, [facility] [address] [facility] [id number], [place] [id number] Jan, [facility] [place] [facility] [address] [facility] [id number], [place] [address]- 3484 Jan, [facility] [address] [facility] [id number], [place] [id number] Sep, [facility] [place] [facility] [address] [facility] [id number], [place] 01432370- 4596 Sep, [facility] [place] [facility] [address] [facility] [id number] [place] [address]- 9538 Sep, [facility] [address] [id number] [place] [id number] Sep, [facility] [place] [facility] [address] [facility] [id number] [place] [address]- 0885 Sep, [facility] [place] [facility] [address] [facility] [id number], [place] [address]- 7624 Sep, [facility] [address] [id number] [place] [id number] Jul, [facility] [place] [facility] [address] [facility] [id number] [place] [address]- 0536 Jul, [facility] [address] [facility] [id number] [place] 087373277 Jun, [facility] [place] [facility] [address] [facility] [id number], [place] [address]- 1610 Jun, [facility] [address] [facility] [id number], [place] 915200831 Jun, [facility] [place] [facility] [address] [facility] [id number], [place] [address]- 5296 Jun, [facility] [address] [facility] [id number], [place] 807401717 Apr, [facility] [place] [facility] [address] [facility] [id number], [place] [address]- 4770 Apr, [facility] [address] [facility] [id number], [place] [id number] Mar, [facility] [place] [facility] [address] [facility] [id number], [place] [address]- 5817 Mar, [facility] [address] [facility] [id number], [place] [id number] Mar, [facility] [place] [facility] [address] [facility] [id number], [place] [address]- 4033 Mar, [facility] [address] [id number] [place] [id number] Feb, [facility] [address] [id number], [place] [address]- [address]46 Feb, [facility] [address] [id number] [place] [id number] Jan, [facility] [place] [facility] [address] [facility] [id number], [place] [address]- 2546 Jan, [facility] [address] [id number] [place] [id number] Dec, [facility] [place] [facility] [address] [facility] [id number] [place] [address]- 9014 16 Dec, 2012 [facility] [address] [id number] [place] [id number] Dec, [facility] [address] [id number] [place] [id number] Dec, [facility] [address] [id number] [place] [id number] Oct, [facility] [address] [facility] [id number], [place] [address]- 1406 Oct, [facility] [place] [facility] [address] [id number], [place] [address]- 2546 Oct, [facility] [address] [id number], [place] 220124184 Oct, [facility] [address] [id number] [place] [id number] Sep, [facility] [address] [id number] [place] [id number] August, [facility] [address] [id number] [place] 850789515 August, [facility] [address] [id number] [place] [id number] August, [facility] [address] [id number] [place] 146226475 Jul, [facility] [place] [facility] [address] [facility] [id number], [place] [address]- 8276 Jul, [facility] [address] [id number] [place] [id number] Jul, [facility] [address] [id number] [place] [id number] Jun, [facility] [address]00565100[place], [place] [address]- 2[address] Jun, [facility] [address] [id number] [place] [id number] Jun, [facility] [address] [id number] [place] 520179532 Jun, [facility] [address] [id number] [place] [id number] Jun, [facility] [address] [id number] [place] [id number] Jun, [facility] [address] [id number] [place] [id number] Jun, [facility] [address] [id number] [place] [id number] Feb, [facility] [address]00565100[place], [place] [address]- 2549 Feb, [facility] [address] [id number] [place] [id number] Jan, [facility] [address] [id number] [place] 875907741 Nov, [facility] [address] [id number], [place] [id number] Oct, [facility] [address] [id number], [place] [id number] Oct, [facility] [address] [id number], [place] [id number] Sep, [facility] [address]00565100[place], [place] [address]- [address] Mar, [facility] [address] [id number], [place] [address]- 4972 Nov, IMMUNIZATIONS No Known Immunizations SOCIAL HISTORY Never Assessed REASON FOR VISIT Medication refill request PLAN OF CARE VITAL SIGNS MEDICATIONS Medication Instructions Dosage Frequency Start Date End Date Duration Status Paroxetine HCl 40 mg one tab BID Orally Active Wellbutrin SR 100 mg Orally Twice a day 1 tablet [...] Surgical History cholecystectomy 1979 Hospitalization History Via [facility] for pneumonia 2012 Hospitalization History Via [facility] x 3 days for stomach flu 07/24/15 Hospitalization History [facility] for vomiting-given mag citrate for "blockage" 03/09/2016
--- OUTSIDE RECORDS SUMMARY | 2018-04-15 01:19 | XMS REPORT ---
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 94821786 Problem Sciatica of left side M54.32 Active 72578326 Problem Back pain with left-sided radiculopathy M54.10 Active 438024772 Problem PTSD (post-traumatic stress disorder) F43.10 Active 71323621 Problem Hereditary and idiopathic neuropathy, 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 Active 15858537 Problem Female stress incontinence 625.6 Active 09173595 Problem Essential hypertension I10 Active 92606830 Problem Chronic airway obstruction, not elsewhere classified J44.9 Active 50060457 Problem Nondependent tobacco use disorder 305.1 Active 584993607 Problem Lung nodule R91.1 Active 253475193 Problem Chronic rhinitis J31.0 Active 88914433 Problem Overactive bladder N32.81 Active 023265955 ALLERGIES Substance Reaction Event Type Date Status Penicillin V Potassium rash Drug Allergy Nov, Active Aspirin rash Drug Allergy Nov, Active ENCOUNTERS Encounter Location Date Diagnosis [facility] [address] [facility] [id number] [address] Jan, [facility] [address] [facility] [id number][place] [id number] Jan, [facility] [address] [facility] [id number][place] [address] Dec, PTSD (post-traumatic stress disorder) F43.10 ; Chronic airway obstruction , not elsewhere classified J44.9 ; Dysthymia F34.1 and Thrush B37.[address] [place] [address] [id number] Nov, Dysthymia F34.1 [facility] [id number] [address] Nov, PTSD (post-traumatic stress disorder) F43.10 and 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 [address] [place] [address] [id number] Nov, BMI 45.0-49.9, adult Z68.42 ; Strain of lumbar region, subsequent encounter S39.012D ; PTSD (post-traumatic stress disorder) F43.10 and Dysthymia F34.1 [address] [place] [address] [id number] Oct, [place] [id number] [place] [address] [id number] Oct, Dysthymia F34.1 and PTSD (post-traumatic stress disorder) F43.10 [address] [place] [address] [id number] Oct, BMI 45.0-49.9, adult Z68.42 ; Dysthymia F34.1 ; PTSD (post-traumatic stress disorder) F43.10 and Infective urethritis N34.[address] [facility] [address] [id number][place] [id number] Oct, Dysthymia F34.1 and PTSD (post-traumatic stress disorder) F43.[address] [place] [id number], [place] [id number] Sep, Dysthymia F34.1 and PTSD (post-traumatic stress disorder) F43.[address] [place] [address] [id number] Sep, BMI 45.0-49.9, adult Z68.42 and Mood disorder F39 [address] [id number], [place] [id number] Sep, [facility] [address] [facility] [address] [id number][place] [id number] Sep, Dysthymia F34.1 [facility] [place] [id number][place] [id number] Sep, Mood disorder F39 [facility] [address] [facility] [address] [id number][place] [id number] August, Dysthymia F34.1 [facility] [address]00565[place] [id number] August, Dysthymia F34.1 ; Chronic airway obstruction, not elsewhere classified J44.9 ; Back pain with left-sided radiculopathy M54.10 and BMI 45.0-49.9, adult Z68.42 [facility] [address] [place] [address] [id number] Jul, Urinary tract infection without hematuria, site unspecified N39.0 and Fatigue, unspecified type R53.83 [address] [place] [address] [id number] Jul, Chronic airway obstruction, not elsewhere classified J44.9 [facility] [address] [place] [address] [id number] Jul, BMI 45.0-49.9, adult Z68.42 and Infective urethritis N34.2 [address] [place] [address] [id number] Jul, [facility] [address]00565100[place] [id number] Jun, Back pain with left-sided radiculopathy M54.10 [facility] [place] [id number] [place] [address] [id number] May, Chronic airway obstruction, not elsewhere classified J44.9 and Encounter for immunization Z23 [facility] [address] [place] [address] [id number] Apr, BMI 45.0-49.9, adult Z68.42 ; Back pain with left-sided radiculopathy M54.10 ; Chronic airway obstruction, not elsewhere classified J44.9 and Dysthymia F34.1 [facility] [id number] [place] [address] [id number] Mar, Sciatica of left side M54.32 ; Back pain with left-sided radiculopathy M54.10 and Hereditary and idiopathic neuropathy, 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 [facility] [id number] [place] [address] [id number] Mar, Flank pain R10.9 ; Urinary urgency R39.15 and Chronic airway obstruction, not elsewhere classified J44.9 [facility] [id number] [place] [address] [id number] Mar, Dysthymia F34.[address] [facility] [address] [id number][place] [id number] Feb, [facility] [address] [address] Feb, [facility] [id number] [place] [address] [id number] Feb, Hematuria, unspecified type R31.9 ; Kidney stone N20.0 and BMI 40.0-44.9, adult Z68.41 [facility] [address] [place] [id number] [address] Feb, [facility] [address] [facility] [id number] [place] [address] [id number] Feb, [facility] [id number] [place] [address] [id number] Feb, [facility] [id number] [place] [address] [id number] Feb, Dysthymia F34.1 ; Encounter for immunization Z23 ; Acute nasopharyngitis J00 ; Chronic rhinitis J31.0 and Chronic airway obstruction, not elsewhere classified J44.9 [facility] [id number] [place] [id number] 30 Oct, 2017 Well woman exam Z01.419 ; Left breast lump N63.20 and BMI 40.0-44.9, adult Z68.41 [facility] [id number] [place] [address] [id number] Jan, Muscle cramps R25.2 [facility] [place] [id number] [place] [address] [id number] Dec, Dysthymia F34.1 [facility] [place] [id number] [place] [address] [id number] Dec, Muscle cramps R25.2 [facility] [address] [id number] [place] [id number] Nov, Dysthymia F34.1 [facility] [place] [id number] [place] [address] [id number] Oct, [facility] [place] [id number] [place] [address] [id number] Oct, Chronic airway obstruction, not elsewhere classified J44.9 ; Moderate single current episode of major depressive disorder F32.1 ; Chronic rhinitis J31.0 and Muscle cramps R25.2 [facility] [place] [address] [id number] [place] [address] [id number] Sep, Acute nasopharyngitis J00 [facility] [id number] [address] Jun, Acute exacerbation of chronic obstructive pulmonary disease (COPD) J44.1 [facility] [place] [id number] [place] [address] [id number] Jun, Acute nasopharyngitis J00 [facility] [place] [id number] [place] [address] [id number] Jun, [facility] [address] [place] [address] Apr, [facility] [place] [address] [id number] [place] [address] [id number] Mar, Acute nasopharyngitis J00 [facility] [place] [id number] [place] [address] [id number] Mar, [facility] [place] [id number] [place] [address] [id number] Mar, [facility] [place] [id number] [place] [address] [id number] Feb, CAP (community acquired pneumonia) J18.9 and Chronic rhinitis J31.0 [facility] [place] [id number] [place] [address] [id number] Feb, CAP (community acquired pneumonia) J18.9 [facility] [place] [id number] [place] [address] [id number] Feb, CAP (community acquired pneumonia) J18.9 [facility] [place] [id number] [place] [address] [id number] Feb, [facility] [id number] [place] [address] [phone] Jan, Mood disorder F39 [facility] [id number] [place] [address] Jan, [facility] [id number] [place] [address] [phone] Jan, Lung nodule R91.1 [facility] [id number] [place] [address] [id number] Jan, Lung nodule R91.1 [facility] [id number] [place] [address] [phone] Jan, Lung nodule R91.1 [facility] [id number] [place] [address] [id number] Jan, Lung nodule R91.1 [facility] [id number] [place] [address] [id number] Jan, [facility] [id number] [place] [address] [id number] Nov, Overactive bladder N32.81 ; Chronic airway obstruction, not elsewhere classified J44.9 and Essential hypertension I10 [facility] [id number] [place] [address] [id number] Oct, [facility] [id number] [place] [address] [id number] Oct, Acute non-recurrent sinusitis, unspecified location J01.90 ; Cough R05 and Tobacco dependence F17.200 [place] [id number] [place] [address] [id number] Sep, Overactive bladder N32.81 and Chronic airway obstruction, not elsewhere classified J44.9 [place] [id number] [place] [address] [id number] August, Chronic airway obstruction, not elsewhere classified J44.9 ; Mood disorder F39 and Urinary frequency R35.[address] [id number] August, [address] [id number] Jul, Lung nodule R91.1 ; Chronic airway obstruction, not elsewhere classified J44.9 and Urinary tract infection without hematuria, site unspecified N39.0 [place] [id number] [place] [address] [id number] Jul, Lung nodule R91.1 [place] [id number] [place] [address] [id number] Jul, [address] [id number] Jul, Diarrhea R19.7 and Lung nodule R91.1 [place] [id number] [place] [address] [id number] Apr, Upper respiratory tract infection, unspecified type J06.9 and COPD exacerbation J44.1 [place] [id number] [place] [address] [id number] Mar, [address] [id number] Feb, Mood disorder F39 and Essential hypertension I10 [address] [id number] Jan, Essential hypertension I10 ; Mood disorder F39 ; Chronic airway obstruction, not elsewhere classified J44.9 and Chronic rhinitis J31.0 [place] [id number] [place] [address] [id number] Jan, [place] [id number] [id number] Jan, [facility] [id number][place] [id number] Jan, [facility] [address] [place] [id number], [place] [phone] Jan, [facility] [place] [address] [place] [address] [id number], [place] [id number] Dec, [place] [address] [facility] [address] [id number] [place] [id number] Dec, [facility] [address] [place] [id number], [place] [id number] Sep, Rhinitis 472.0 [facility] [place] [facility] [address] [address] Jul, [facility] [place] [facility] [address] [address] Jul, [facility] [address] [place] [place] [id number], [place] [phone] Jun, [facility] [place] [facility] [address] [address] Jun, [facility] [place] [facility] [address]005[address]100[place] 39[address] Jun, [facility] [address] [place] [id number], [place] [id number] May, [facility] [place] [facility] [address] [address] May, [facility] [address] [place] [id number], [place] [id number] Apr, [facility] [place] [facility] [address]005[address]100[place] [address] Apr, [facility] [address] [place] [place] [id number], [place] [id number] Mar, [facility] [place] [facility] [address]005[address] 4134[address] Mar, [facility] [address] [id number] [place] [id number] Mar, [facility] [place] [facility] [address] [facility] [id number] [place] [address] Mar, [facility] [address] [id number] [place] [id number] Mar, [facility] [place] [facility] [address] [facility] [id number] [place] [address]- [address] Mar, [facility] [address] [id number] [place] [id number] Mar, [facility] [place] [facility] [address] [facility] [id number] [place] [address] 15[address] Mar, [facility] [address] [facility] [id number] [place] [id number] Feb, [facility] [place] [facility] [address]005[address] [address] Feb, [facility] [address] [id number], [place] [id number] Feb, [facility] [place] [facility] [address] [facility] [id number] [place] [address] Feb, [facility] [address] [facility] [id number], [place] 1579[address]196 Feb, [facility] [place] [facility] [address] [facility] [id number] [place] [address] Feb, [facility] [address] [id number], [place] [id number] Jan, [facility] [place] [facility] [address] [facility] [id number] [place] [address] Jan, [facility] [address] [id number], [place] [id number] Jan, [facility] [place] [facility] [address] [facility] [id number] [place] [address] Jan, [facility] [address] [id number], [place] [id number] Sep, [facility] [place] [facility] [address] [facility] [id number] [place] [address] Sep, [facility] [place] [facility] [address] [facility] [id number] [place] [address] 69[address] Sep, [facility] [address] [facility] [id number] [place] [id number] Sep, [facility] [place] [facility] [address] [facility] [id number] [place] [address]- 8757 Sep, [facility] [place] [facility] [address] [facility] [id number] [place] [address]- 7261 Sep, [facility] [address] [facility] [id number] [place] [id number] Jul, [facility] [place] [facility] [address] [facility] [id number] [place] [address] Jul, [facility] [address] [facility] [id number], [place] [id number] Jun, [facility] [place] [facility] [address] [facility] [id number] [place] [address] 4[address] Jun, [facility] [address] [facility] [id number] [place] [id number] Jun, [facility] [place] [facility] [address] [facility] [id number] [place] [address]- 0616 Jun, [facility] [address] [facility] [id number], [place] [id number] Apr, [facility] [place] [facility] [address] [facility] [id number] [place] [address] 9[address] Apr, [facility] [address] [facility] [id number], [place] [id number] Mar, [facility] [place] [facility] [address] [facility] [id number] [place] [address]- 360[address] Mar, [facility] [address] [facility] [id number] [place] [id number] Mar, [facility] [place] [facility] [address] [facility] [id number] [place] [address] 6[address] Mar, [facility] [address] [id number] [place] [id number] Feb, [facility] [address] [facility] [id number] [place] [address] 2018 Feb, [facility] [address] [facility] [id number] [place] [id number] Jan, [facility] [address]005[address] [address] Jan, [facility] [address] [id number] [place] [id number] Dec, [facility] [address]005[address]100[place] [address]- 3[address] 16 Dec, 2012 [facility] [id number] [place] [id number] Dec, [facility] [address] [id number], [place] 085354471 Dec, [facility] [address] [id number] [place] [id number] Oct, [facility] [address]005[address]100[place] [address] 2545 Oct, [facility] [address]005[address] [address] 37[address] Oct, [facility] [address] [id number] [place] 015300174 Oct, [facility] [address] [id number] [place] 671119809 Sep, [facility] [address] [id number] [place] [id number] August, [facility] [address] [id number] [place] 698219697 August, [facility] [address] [id number] [place] 102238845 August, [facility] [address] [id number] [place] [id number] Jul, [facility] [address] [facility] [id number] [place] [address]- 8254 Jul, [facility] [address] [id number] [place] [id number] Jul, [facility] [address] [id number] [place] 868276865 Jun, [facility] [address] [facility] [id number] [place] [address]- 1582 Jun, [facility] [address] [id number] [place] 749825498 Jun, [facility] [address] [id number] [place] 268781447 Jun, [facility] [address] [id number] [place] [id number] Jun, [facility] [address] [id number] [place] [id number] Jun, [facility] [address] [id number] [place] [id number] Jun, [facility] [address] [id number] [place] [id number] Feb, [facility] [address]00565100[place] [address] 25[address] Feb, [facility] [address] [id number] [place] 836235353 Jan, [facility] [address] [id number] [place] [id number] Nov, [facility] [address] [id number] [place] [id number] Oct, [facility] [address] [id number] [place] [id number] Oct, [facility] [address] [id number] [place] 216591211 Sep, [facility] [address]005[address]100[place] [address] Mar, [facility] [id number] [address] 2[address] Nov, IMMUNIZATIONS No Known Immunizations SOCIAL HISTORY Never Assessed REASON FOR VISIT intake PLAN OF CARE Activity Details Follow Up 2 Weeks Reason: VITAL SIGNS MEDICATIONS Medication Instructions Dosage Frequency Start Date End Date Duration Status Flonase 50 mcg/act Nasally Once a day 2 spray in each nostril 24h Apr, Active Lisinopril 10 mg 1 tablet Once a day Orally Active Gabapentin 300 MG Orally 3 times a day 1 capsule 8h Active Wellbutrin SR 100 mg Orally Twice a day 1 tablet 12h Sep, Active Symbicort 80-4.5 MCG/ACT Inhalation Twice a day 2 puffs 12h Jul, Active Zyrtec Allergy 10 mg Orally Once a day 1 tablet 24h Active Paroxetine HCl 40 mg Orally BID one tab 12h Active Spiriva HandiHaler 18 MCG Inhalation Once a day 1 capsule 24h Active Pantoprazole Sodium 40 mg Orally Once a day 1 tablet 24h Active Albuterol Sulfate HFA cfc free 90 mcg/inh Inhalation every 4 hrs 2 puffs as needed 4h Dec, Active Methocarbamol 500 mg Orally 3 times a day 1 tablets 8h Oct, Active Prazosin HCl 2 MG Orally Once a day 2 capsule at bedtime 24h Oct, Active HydrOXYzine HCl 25 MG Orally at bedtime as needed 1-2 tablet as needed fro sleep Sep, Active Tylenol with Codeine #3 300-30 MG Orally every 6 hrs 1 tablet as needed 6h Active RESULTS No Results PROCEDURES Procedure Date Ordered Result Body Site Psych diagnostic evaluation, established patient Nov 23, 2017 INSTRUCTIONS MEDICATIONS ADMINISTERED No Known Medications MEDICAL (GENERAL) HISTORY Type Description Date Medical History hypertension Medical History allergies Medical History chronic obstructive pulmonary disease (COPD) Medical History anxiety Medical History sciatica Medical History acid reflux Medical History Pneumococcal inj (2012) Medical History depression Surgical History cholecystectomy 1979 Hospitalization History [facility] History [facility] 3 days for stomach flu 07/24/15 Hospitalization History [facility] for [facility]-given mag citrate for "blockage" 03/09/2016
--- OUTSIDE RECORDS SUMMARY | 2018-04-15 01:20 | XMS REPORT ---
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 18045106 Problem Sciatica of left side M54.32 Active 42354662 Problem Back pain with left-sided radiculopathy M54.10 Active 398624396 Problem PTSD (post-traumatic stress disorder) F43.10 Active 73485586 Problem Hereditary and idiopathic neuropathy, 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 Active 63832652 Problem Female stress incontinence 625.6 Active 15775572 Problem Essential hypertension I10 Active 56501949 Problem Chronic airway obstruction, not elsewhere classified J44.9 Active 13585288 Problem Nondependent tobacco use disorder 305.1 Active 571380898 Problem Lung nodule R91.1 Active 529266635 Problem Chronic rhinitis J31.0 Active 74988540 Problem Overactive bladder N32.81 Active 902310335 ALLERGIES Substance Reaction Event Type Date Status Penicillin V Potassium rash Drug Allergy Oct, Active Aspirin rash Drug Allergy Oct, Active ENCOUNTERS Encounter Location Date Diagnosis [facility] [address] [facility] [id number] [place] [address] Jan, [facility] [address] [facility] [id number] [id number] Jan, [facility] [address] [facility] [id number][place] [id number] Dec, PTSD (post-traumatic stress disorder) F43.10 ; Chronic airway obstruction , not elsewhere classified J44.9 ; Dysthymia F34.1 and Thrush B37.0 [facility] [place] [id number] [place] [address] [id number] Nov, Dysthymia F34.1 [facility] [address] [address] Nov, PTSD (post-traumatic stress disorder) F43.10 and 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 [facility] [place] [id number] [place] [address] [id number] Nov, BMI 45.0-49.9, adult Z68.42 ; Strain of lumbar region, subsequent encounter S39.012D ; PTSD (post-traumatic stress disorder) F43.10 and Dysthymia F34.1 [place] [id number] [place] [address] [id number] Oct, [facility] [place] [id number] [place] [address] [id number] Oct, Dysthymia F34.1 and PTSD (post-traumatic stress disorder) F43.10 [address] [place] [address] [id number] Oct, BMI 45.0-49.9, adult Z68.42 ; Dysthymia F34.1 ; PTSD (post-traumatic stress disorder) F43.10 and Infective urethritis N34.2 [facility] [address] [id number][place] [id number] Oct, Dysthymia F34.1 and PTSD (post-traumatic stress disorder) F43.[address] [id number][place] [address] Sep, Dysthymia F34.1 and PTSD (post-traumatic stress disorder) F43.[address] [place] [address] [id number] Sep, BMI 45.0-49.9, adult Z68.42 and Mood disorder F39 [address] [id number] Sep, [facility] [address] [facility] [id number][place] [id number] Sep, Dysthymia F34.1 [facility] [place] [id number], [place] [id number] Sep, Mood disorder F39 [facility] [address] [facility] [id number][place] [id number] August, Dysthymia F34.1 [facility] [place] [address]00565100[place] [address] August, Dysthymia F34.1 ; Chronic airway obstruction, not elsewhere classified J44.9 ; Back pain with left-sided radiculopathy M54.10 and BMI 45.0-49.9, adult Z68.42 [facility] [address] [place] [address] [id number] Jul, Urinary tract infection without hematuria, site unspecified N39.0 and Fatigue, unspecified type R53.83 [facility] [address] [place] [address] [id number] Jul, Chronic airway obstruction, not elsewhere classified J44.9 [facility] [address] [place] [address] [id number] Jul, BMI 45.0-49.9, adult Z68.42 and Infective urethritis N34.2 [facility] [address] [place] [address] [id number] Jul, [facility] [address] [place] [address] [id number] Jun, Back pain with left-sided radiculopathy M54.10 [facility] [address] [place] [address] [id number] May, Chronic airway obstruction, not elsewhere classified J44.9 and Encounter for immunization Z23 [facility] [place] [address]00565100[place] [address] Apr, BMI 45.0-49.9, adult Z68.42 ; Back pain with left-sided radiculopathy M54.10 ; Chronic airway obstruction, not elsewhere classified J44.9 and Dysthymia F34.1 [facility] [id number] [place] [address] [id number] Mar, Sciatica of left side M54.32 ; Back pain with left-sided radiculopathy M54.10 and Hereditary and idiopathic neuropathy, 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 [facility] [id number] [place] [address] [id number] Mar, Flank pain R10.9 ; Urinary urgency R39.15 and Chronic airway obstruction, not elsewhere classified J44.9 [facility] [id number] [place] [address] [id number] Mar, Dysthymia F34.1 [facility] [address] [facility] [id number] [place] [address] [id number] Feb, [facility] [address] [address] Feb, [facility] [id number] [place] [address] [id number] Feb, Hematuria, unspecified type R31.9 ; Kidney stone N20.0 and BMI 40.0-44.9, adult Z68.41 [facility] [address] [place], [id number] [place] [address] Feb, [facility] [address] [facility] [id number] [place] [address] [id number] Feb, [facility] [id number] [place] [address] [id number] Feb, [facility] [id number] [place] [address] [id number] Feb, Dysthymia F34.1 ; Encounter for immunization Z23 ; Acute nasopharyngitis J00 ; Chronic rhinitis J31.0 and Chronic airway obstruction, not elsewhere classified J44.9 [facility] [id number] [place] [address] Jan, Well woman exam Z01.419 ; Left breast lump N63.20 and BMI 40.0-44.9, adult Z68.41 [facility] [id number] [place] [address] [id number] Jan, Muscle cramps R25.2 [facility] [place] [id number] [place] [address] [id number] Dec, Dysthymia F34.1 [facility] [place] [id number] [place] [address] [id number] Dec, Muscle cramps R25.2 [facility] [place] [id number] [place] [address] [id number] Nov, Dysthymia F34.1 [facility] [place] [address] [id number] [place] [address] [id number] Oct, [facility] [place] [id number] [place] [address] [id number] Oct, Chronic airway obstruction, not elsewhere classified J44.9 ; Moderate single current episode of major depressive disorder F32.1 ; Chronic rhinitis J31.0 and Muscle cramps R25.2 [facility] [place] [id number] [place] [address] [id number] Sep, Acute nasopharyngitis J00 [facility] [address] [place] [address] Jun, Acute exacerbation of chronic obstructive pulmonary disease (COPD) J44.1 [facility] [place] [id number] [place] [address] [id number] Jun, Acute nasopharyngitis J00 [facility] [place] [id number] [place] [address] [id number] Jun, [facility] [address] [place] [address] Apr, [facility] [place] [id number] [place] [address] [id number] Mar, Acute nasopharyngitis J00 [facility] [place] [id number] [place] [address] [id number] Mar, [facility] [place] [id number] [place] [address] [id number] Mar, [facility] [id number] [place] [address] [id number] Feb, CAP (community acquired pneumonia) J18.9 and Chronic rhinitis J31.0 [facility] [place] [id number] [place] [address] [id number] Feb, CAP (community acquired pneumonia) J18.9 [facility] [place] [id number] [place] [address] [id number] Feb, CAP (community acquired pneumonia) J18.9 [facility] [id number] [place] [address] [id number] Feb, [facility] [id number] [place] [address] [id number] Jan, Mood disorder F39 [facility] [id number] [place] [address] 7888[address] Jan, [facility] [id number] [place] [address] [id number] Jan, Lung nodule R91.1 [facility] [id number] [place] [address] [id number] Jan, Lung nodule R91.1 [facility] [id number] [place] [address] [id number] Jan, Lung nodule R91.1 [facility] [id number] [place] [address] [id number] Jan, Lung nodule R91.1 [facility] [id number] [place] [address] [id number] Jan, [facility] [id number] [place] [address] [id number] Nov, Overactive bladder N32.81 ; Chronic airway obstruction, not elsewhere classified J44.9 and Essential hypertension I10 [facility] [id number] [place] [address] [id number] Oct, [facility] [id number] [place] [address] [id number] Oct, Acute non-recurrent sinusitis, unspecified location J01.90 ; Cough R05 and Tobacco dependence F17.[address] [place] [address] [id number] Sep, Overactive bladder N32.81 and Chronic airway obstruction, not elsewhere classified J44.9 [place] [id number] [place] [address] [id number] August, Chronic airway obstruction, not elsewhere classified J44.9 ; Mood disorder F39 and Urinary frequency R35.0 [place] [id number] [place] [address] [id number] August, [place] [id number] [place] [address] [id number] Jul, Lung nodule R91.1 ; Chronic airway obstruction, not elsewhere classified J44.9 and Urinary tract infection without hematuria, site unspecified N39.0 [place] [id number] [place] [address] [id number] Jul, Lung nodule R91.1 [place] [id number] [place] [address] [id number] Jul, [place] [id number] [place] [address] [id number] Jul, Diarrhea R19.7 and Lung nodule R91.1 [place] [id number] [place] [address] [id number] Apr, Upper respiratory tract infection, unspecified type J06.9 and COPD exacerbation J44.1 [address] [place] [address] [id number] Mar, [place] [id number] [place] [address] [id number] Feb, Mood disorder F39 and Essential hypertension I10 [address] [place] [address] [id number] Jan, Essential hypertension I10 ; Mood disorder F39 ; Chronic airway obstruction, not elsewhere classified J44.9 and Chronic rhinitis J31.0 [address] [place] [address] [id number] Jan, [id number] [id number] Jan, [facility] [address] [facility] [id number][place] [phone] Jan, [facility] [id number], [place] [id number] Jan, [facility] [address] [id number], [place] [id number] Dec, [facility] [address] [id number], [place] [id number] Dec, [facility] [id number], [place] [id number] Sep, Rhinitis 472.0 [facility] [place] [facility] [address] [address] Jul, [facility] [place] [facility] [address] [address] Jul, [facility] [id number], [place] [id number] Jun, [facility] [place] [facility] [address]005[address] [address] Jun, [facility] [place] [facility] [address] Jun, [facility] [address] [id number], [place] [id number] May, [facility] [place] [facility] [address] [address] May, [facility] [address] [id number], [place] [id number] Apr, [facility] [place] [facility] [address] [address] 8[address] Apr, [facility] [address] [id number], [place] [id number] Mar, [facility] [place] [facility] [address] [address] Mar, [facility] [address] [id number] [place] [id number] Mar, [facility] [place] [facility] [address] [facility] [id number] [place] [address]- [address] Mar, [facility] [address] [id number] [place] [id number] Mar, [facility] [place] [facility] [address] [facility] [id number] [place] [address]- 6[address] Mar, [facility] [address] [id number] [place] [id number] Mar, [facility] [place] [facility] [address] [facility] [id number] [place] [address]- 16[address] Mar, [facility] [address] [facility] [id number], [place] [id number] Feb, [facility] [place] [facility] [address] [facility] [id number] [place] [address]- [address] Feb, [facility] [address] [facility] [id number], [place] [id number] Feb, [facility] [place] [facility] [address] [facility] [id number] [place] [address]- [address] Feb, [facility] [address] [facility] [id number], [place] [id number] Feb, [facility] [place] [facility] [address] [facility] [id number] [place] [address]- 0[address] Feb, [facility] [address] [facility] [id number], [place] [id number] Jan, [facility] [place] [facility] [address] [facility] [id number] [place] [address]- 5698 Jan, [facility] [address] [facility] [id number], [place] 101043294 Jan, [facility] [place] [facility] [address] [facility] [id number] [place] [address]- 7[address] Jan, [facility] [address] [facility] [id number], [place] [id number] Sep, [facility] [place] [facility] [address] [id number] [place] [address]- [address] Sep, [facility] [place] [facility] [address] [facility] [id number] [place] [address]- 4[address] Sep, [facility] [address] [id number], [place] 400065636 Sep, [facility] [place] [facility] [address] [facility] [id number] [place] [address]- 9048 Sep, [facility] [place] [facility] [address] [facility] [id number] [place] [address]- 8669 Sep, [facility] [address] [facility] [id number] [place] [id number] Jul, [facility] [place] [facility] [address] [facility] [id number] [place] [address]- 40[address] Jul, [facility] [address] [facility] [id number], [place] [id number] Jun, [facility] [place] [facility] [address] [facility] [id number] [place] [address]- 2[address] Jun, [facility] [address] [facility] [id number], [place] [id number] Jun, [facility] [place] [facility] [address] [facility] [id number] [place] [address]- [address] Jun, [facility] [address] [facility] [id number], [place] [id number] Apr, [facility] [place] [facility] [address] [facility] [id number] [place] [address]- 9238 Apr, [facility] [address] [facility] [id number], [place] 778154810 Mar, [facility] [place] [facility] [address] [facility] [id number] [place] [address]- 8696 Mar, [facility] [address] [facility] [id number], [place] [id number] Mar, [facility] [place] [facility] [address] [facility] [id number] [place] [address] 68[address] 2546 Mar, [facility] [address] [id number] [place] [id number] Feb, [facility] [address] [facility] [id number] [place] [address]- 25[address] Feb, [facility] [address] [id number] [place] [id number] Jan, [facility] [address] [facility] [id number] [place] [address]- 2546 Jan, [facility] [address] [id number] [place] [id number] Dec, [facility] [address] [facility] [id number] [place] [address]- 2546 Dec, [facility] [address] [id number], [place] 865139772 Dec, [facility] [address] [id number] [place] [id number] Dec, [facility] [address] [id number], [place] 856903243 Oct, [facility] [address] [address]- 25[address] Oct, [facility] [address] [facility] [id number] [place] [address]- 2546 Oct, [facility] [address] [id number], [place] 323905285 Oct, [facility] [address] [id number], [place] 322059958 Sep, [facility] [address] [id number] [place] [id number] August, [facility] [address] [id number] [place] [id number] August, [facility] [address] [id number] [place] [id number] August, [facility] [address] [id number] [place] [id number] Jul, [facility] [place] [facility] [address] [id number] [place] [address]- 0757 Jul, [facility] [address] [id number] [place] [id number] Jul, [facility] [address] [id number] [place] [id number] Jun, [facility] [address] [facility] [id number] [place] [address]- 9392 Jun, [facility] [address] [id number] [place] [id number] Jun, [facility] [address] [id number] [place] 37[place]17441 Jun, [facility] [address] [id number] [place] 584268386 Jun, [facility] [address] [id number] [place] [id number] Jun, [facility] [address] [id number] [place] [id number] Jun, [facility] [address] [id number] [place] [id number] Feb[facility] [address] [facility] [id number] [place] [address]- 2546 Feb, [facility] [address] [id number] [place] [id number] Jan, [facility] [address] [id number] [place] [id number] Nov, [facility] [address] [id number] [place] [id number] Oct, [facility] [address] [id number] [place] [id number] Oct, [facility] [address] [id number] [place] [id number] Sep, [facility] [place] [facility] [address] [facility] [id number] [place] [address] Mar, [facility] [address] [id number] [address] Nov, IMMUNIZATIONS No Known Immunizations SOCIAL HISTORY Never Assessed REASON FOR VISIT here to follow up on depression, states medication is working well. eb Avendano PLAN OF CARE Activity Details Follow Up 4 Weeks Reason:depression VITAL SIGNS Height 67 in 2017-10-14 Weight 289.2 lbs 2017-10-14 Temperature 98.3 degrees Fahrenheit 2017-10-14 Heart Rate 96 bpm 2017-10-14 Respiratory Rate 20 2017-10-14 BMI 45.29 kg/m2 2017-10-14 Blood pressure systolic 120 mmHg 2017-10-14 Blood pressure diastolic 76 mmHg 2017-10-14 MEDICATIONS Medication Instructions Dosage Frequency Start Date End Date Duration Status Flonase 50 mcg/act Nasally Once a day 2 spray in each nostril 24h Apr, Active Gabapentin 300 MG Orally 3 times a day 1 capsule 8h Active Spiriva HandiHaler 18 MCG Inhalation Once a day 1 capsule 24h Active Symbicort 80-4.5 MCG/ACT Inhalation Twice a day 2 puffs 12h Jul, Active Paroxetine HCl 40 mg Orally BID one tab 12h Active HydrOXYzine HCl 25 MG Orally at bedtime as needed 1-2 tablet as needed fro sleep Sep, Active Prazosin HCl 2 MG Orally Once a day 1 capsule at bedtime 24h Oct, 30 day(s) Active Nitrofurantoin Monohyd Macro 100 mg Orally every 12 hrs 1 capsule with food 12h Oct, Oct, 7 day(s) Active Lisinopril 10 mg 1 tablet Once a day Orally Active Methocarbamol 500 mg Orally 3 times a day 1 tablets 8h Oct, Active Zyrtec Allergy 10 mg Orally Once a day 1 tablet 24h Active Albuterol Sulfate HFA cfc free 90 mcg/inh Inhalation every 4 hrs 2 puffs as needed 4h Dec, Active Wellbutrin SR 100 mg Orally Twice a day 1 tablet 12h Sep, Active Pantoprazole Sodium 40 mg Orally Once a day 1 tablet 24h Active RESULTS Name Result Date Reference Range UA LONG DIP (IN HOUSE) 2017-10-14 Lot # [id number] Exp date 07/2018 Clarity clear Color yellow Odor no GLU neg JU neg KET neg SG 1.010 BLO trace pH 5.5 Protein neg URO 0.2 NIT positive ALMAS 1+ Lot # Exp date PROCEDURES Procedure Date Ordered Result Body Site URINALYSIS, AUTO, W/O SCOPE October 14, 2017 INSTRUCTIONS MEDICATIONS ADMINISTERED No Known Medications MEDICAL (GENERAL) HISTORY Type Description Date Medical History hypertension Medical History allergies Medical History chronic obstructive pulmonary disease (COPD) Medical History anxiety Medical History sciatica Medical History acid reflux Medical History Pneumococcal inj (2012) Medical History depression Surgical History cholecystectomy 1979 [facility] History [facility] x 3 days for stomach flu 07/24/15 Hospitalization History [facility]-given mag citrate for "blockage" 03/09/2016
--- OUTSIDE RECORDS SUMMARY | 2018-04-15 01:20 | XMS REPORT ---
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 07520329 Problem Sciatica of left side M54.32 Active 68421020 Problem Back pain with left-sided radiculopathy M54.10 Active 962296956 Problem PTSD (post-traumatic stress disorder) F43.10 Active 82557908 Problem Hereditary and idiopathic neuropathy, 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 Active 35714763 Problem Female stress incontinence 625.6 Active 44364907 Problem Essential hypertension I10 Active 43081595 Problem Chronic airway obstruction, not elsewhere classified J44.9 Active 09789662 Problem Nondependent tobacco use disorder 305.1 Active 542267278 Problem Lung nodule R91.1 Active 784825810 Problem Chronic rhinitis J31.0 Active 19259985 Problem Overactive bladder N32.81 Active 066192293 ALLERGIES Substance Reaction Event Type Date Status Penicillin V Potassium rash Drug Allergy Nov, Active Aspirin rash Drug Allergy Nov, Active ENCOUNTERS Encounter Location Date Diagnosis [facility] [address] [facility] [id number] [place] [address] Jan, [facility] [address] [facility] [id number][place] [id number] Jan, [facility] [address] 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 [facility] [place] [id number] [place] [address] [id number] Nov, BMI 45.0-49.9, adult Z68.42 ; Strain of lumbar region, subsequent encounter S39.012D ; PTSD (post-traumatic stress disorder) F43.10 and Dysthymia F34.1 [id number] [place] [address] [id number] Oct, [facility] [place] [id number] [place] [address] [id number] Oct, Dysthymia F34.1 and PTSD (post-traumatic stress disorder) F43.10 [address] [place] [address] [id number] Oct, BMI 45.0-49.9, adult Z68.42 ; Dysthymia F34.1 ; PTSD (post-traumatic stress disorder) F43.10 and Infective urethritis N34.2 [facility] [address] [id number][place] [id number] Oct, Dysthymia F34.1 and PTSD (post-traumatic stress disorder) F43.[address] [id number][place] [id number] Sep, Dysthymia F34.1 and PTSD (post-traumatic stress disorder) F43.[address] [place] [address] [id number] Sep, BMI 45.0-49.9, adult Z68.42 and Mood disorder F39 [address] [phone] Sep, [facility] [address] [facility] [id number][place] [id number] Sep, Dysthymia F34.1 [facility] [place] [id number], [place] [id number] Sep, Mood disorder F39 [facility] [address] [facility] [id number][place] [id number] August, Dysthymia F34.1 [facility] [place] [address]00565100[place] [id number] August, Dysthymia F34.1 ; Chronic airway obstruction, not elsewhere classified J44.9 ; Back pain with left-sided radiculopathy M54.10 and BMI 45.0-49.9, adult Z68.42 [facility] [id number] [place] [address] [id number] Jul, Urinary tract infection without hematuria, site unspecified N39.0 and Fatigue, unspecified type R53.83 [facility] [id number] [place] [address] [id number] Jul, Chronic airway obstruction, not elsewhere classified J44.9 [facility] [address] [place] [address] [id number] Jul, BMI 45.0-49.9, adult Z68.42 and Infective urethritis N34.2 [facility] [address] [place] [address] [id number] Jul, [facility] [address] [place] [address] [id number] Jun, Back pain with left-sided radiculopathy M54.10 [facility] [address] [place] [address] [id number] May, Chronic airway obstruction, not elsewhere classified J44.9 and Encounter for immunization Z23 [facility] [place] [address]00565100[place] [id number] Apr, BMI 45.0-49.9, adult Z68.42 ; Back pain with left-sided radiculopathy M54.10 ; Chronic airway obstruction, not elsewhere classified J44.9 and Dysthymia F34.1 [facility] [id number] [place] [address] [id number] Mar, Sciatica of left side M54.32 ; Back pain with left-sided radiculopathy M54.10 and Hereditary and idiopathic neuropathy, 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 [facility] [id number] [place] [address] [id number] Mar, Flank pain R10.9 ; Urinary urgency R39.15 and Chronic airway obstruction, not elsewhere classified J44.9 [facility] [id number] [place] [address] [id number] Mar, Dysthymia F34.1 [facility] [id number] [place] [address] [id number] Feb, [facility] [place] [address] [address] Feb, [facility] [id number] [place] [address] [id number] Feb, Hematuria, unspecified type R31.9 ; Kidney stone N20.0 and BMI 40.0-44.9, adult Z68.41 [facility] [address] [place] [id number] [place] [address] Feb, [facility] [id number] [place] [address] [id number] Feb, [facility] [id number] [place] [address] [id number] Feb, [facility] [id number] [place] [address] [id number] Feb, Dysthymia F34.1 ; Encounter for immunization Z23 ; Acute nasopharyngitis J00 ; Chronic rhinitis J31.0 and Chronic airway obstruction, not elsewhere classified J44.9 [facility] [place] [id number] [place] [address] Jan, Well woman exam Z01.419 ; Left breast lump N63.20 and BMI 40.0-44.9, adult Z68.41 [facility] [id number] [place] [address] [id number] Jan, Muscle cramps R25.2 [facility] [place] [id number] [place] [address] [id number] Dec, Dysthymia F34.1 [facility] [place] [id number] [place] [address] [id number] Dec, Muscle cramps R25.2 [facility] [place] [id number] [place] [address] [id number] Nov, Dysthymia F34.1 [facility] [place] [id number] [place] [address] [id number] Oct, [facility] [place] [id number] [place] [address] [id number] Oct, Chronic airway obstruction, not elsewhere classified J44.9 ; Moderate single current episode of major depressive disorder F32.1 ; Chronic rhinitis J31.0 and Muscle cramps R25.2 [facility] [place] [id number] [place] [address] [id number] Sep, Acute nasopharyngitis J00 [facility] [id number] [place] [address] Jun, Acute exacerbation of chronic obstructive pulmonary disease (COPD) J44.1 [facility] [place] [id number] [place] [address] [id number] Jun, Acute nasopharyngitis J00 [facility] [place] [id number] [place] [address] [id number] Jun, [facility] [id number] [place] [address] Apr, [facility] [place] [id number] [place] [address] [id number] Mar, Acute nasopharyngitis J00 [facility] [place] [id number] [place] [address] [id number] Mar, [facility] [place] [id number] [place] [address] [id number] Mar, [facility] [id number] [place] [address] [id number] Feb, CAP (community acquired pneumonia) J18.9 and Chronic rhinitis J31.0 [facility] [place] [id number] [place] [address] [id number] Feb, CAP (community acquired pneumonia) J18.9 [facility] [place] [id number] [place] [address] [id number] Feb, CAP (community acquired pneumonia) J18.9 [facility] [id number] [place] [address] [id number] Feb, [facility] [id number] [place] [address] [id number] Jan, Mood disorder F39 [facility] [id number] [place] [address] 491269[address] Jan, [facility] [id number] [place] [address] [id number] Jan, Lung nodule R91.1 [facility] [id number] [place] [address] [id number] Jan, Lung nodule R91.1 [facility] [id number] [place] [address] [id number] Jan, Lung nodule R91.1 [facility] [id number] [place] [address] [id number] Jan, Lung nodule R91.1 [facility] [id number] [place] [address] [id number] Jan, [facility] [id number] [place] [address] [id number] Nov, Overactive bladder N32.81 ; Chronic airway obstruction, not elsewhere classified J44.9 and Essential hypertension I10 [facility] [id number] [place] [address] [id number] Oct, [facility] [id number] [place] [address] [id number] Oct, Acute non-recurrent sinusitis, unspecified location J01.90 ; Cough R05 and Tobacco dependence F17.200 [address] [place] [address] [id number] Sep, Overactive bladder N32.81 and Chronic airway obstruction, not elsewhere classified J44.9 [id number] [place] [address] [id number] August, Chronic airway obstruction, not elsewhere classified J44.9 ; Mood disorder F39 and Urinary frequency R35.0 [id number] [place] [address] [id number] August, [id number] [place] [address] [id number] Jul, Lung nodule R91.1 ; Chronic airway obstruction, not elsewhere classified J44.9 and Urinary tract infection without hematuria, site unspecified N39.0 [id number] [place] [address] [id number] Jul, Lung nodule R91.1 [id number] [place] [address] [id number] Jul, [id number] [place] [address] [id number] Jul, Diarrhea R19.7 and Lung nodule R91.1 [id number] [place] [address] [id number] Apr, Upper respiratory tract infection, unspecified type J06.9 and COPD exacerbation J44.[address] [place] [address] [id number] Mar, [id number] [place] [address] [id number] Feb, Mood disorder F39 and Essential hypertension I10 [address] [place] [address] [id number] Jan, Essential hypertension I10 ; Mood disorder F39 ; Chronic airway obstruction, not elsewhere classified J44.9 and Chronic rhinitis J31.0 [address] [place] [address] [id number] Jan, [id number] [id number] Jan, [facility] [address] [facility] [id number][place] [phone] Jan, [facility] [id number], [place] [id number] Jan, [facility] [address] [id number], [place] [id number] Dec, [facility] [address] [id number] [place] [id number] Dec, [facility] [id number], [place] [id number] Sep, Rhinitis 472.0 [facility] [place] [facility] [address] [place] [address] Jul, [facility] [place] [facility] [address] [place] [address] 7[address] Jul, [facility] [id number], [place] [id number] Jun, [facility] [place] [facility] [address] [place] [address] Jun, [facility] [place] [facility] [address] [address] Jun, [facility] [address] [id number], [place] [id number] May, [facility] [place] [facility] [address] [place] [address] May, [facility] [address] [id number], [place] [id number] Apr, [facility] [place] [facility] [address] [place] [address] 9[address] Apr, [facility] [address] [id number], [place] [id number] Mar, [facility] [place] [facility] [address] [place] [address] Mar, [facility] [address] [id number] [place] [id number] Mar, [facility] [place] [facility] [address] [facility] [id number] [place] [address] Mar, [facility] [address] [id number] [place] [id number] Mar, [facility] [place] [facility] [address] [facility] [id number] [place] [address]- [address] Mar, [facility] [address] [id number] [place] [id number] Mar, [facility] [place] [facility] [address] [facility] [id number] [place] [address] Mar, [facility] [address] [facility] [id number], [place] [id number] Feb, [facility] [place] [facility] [address] [facility] [id number] [place] [address] Feb, [facility] [address] [facility] [id number], [place] [id number] Feb, [facility] [place] [facility] [address] [facility] [id number] [place] [address] Feb, [facility] [address] [facility] [id number], [place] [id number] Feb, [facility] [place] [facility] [address] [facility] [id number] [place] [address]- [address] Feb, [facility] [address] [facility] [id number], [place] [id number] Jan, [facility] [place] [facility] [address] [facility] [id number] [place] [address]- 8[address] Jan, [facility] [address] [facility] [id number], [place] [id number] Jan, [facility] [place] [facility] [address] [facility] [id number] [place] [address]- [address] Jan, [facility] [address] [facility] [id number], [place] 669681611 Sep, [facility] [place] [facility] [address] [id number] [place] [address]- [address] Sep, [facility] [place] [facility] [address] [facility] [id number] [place] [address]- [address] Sep, [facility] [address] [id number], [place] [id number] Sep, [facility] [place] [facility] [address] [facility] [id number] [place] [address]- 9[address] Sep, [facility] [place] [facility] [address] [facility] [id number] [place] [address]- 99[address] Sep, [facility] [address] [facility] [id number] [place] [id number] Jul, [facility] [place] [facility] [address] [facility] [id number] [place] [address]- [address] Jul, [facility] [address] [facility] [id number], [place] [id number] Jun, [facility] [place] [facility] [address] [facility] [id number] [place] [address]- [address] Jun, [facility] [address] [facility] [id number], [place] [id number] Jun, [facility] [place] [facility] [address] [facility] [id number] [place] [address]- 9[address] Jun, [facility] [address] [facility] [id number], [place] [id number] Apr, [facility] [place] [facility] [address] [facility] [id number] [place] [address]- 97[address] Apr, [facility] [address] [facility] [id number], [place] [id number] Mar, [facility] [place] [facility] [address] [facility] [id number] [place] [address]- [address] Mar, [facility] [address] [facility] [id number], [place] [id number] Mar, [facility] [place] [facility] [address] [facility] [id number] [place] [address] 87[address] 2546 Mar, [facility] [address] [id number] [place] [id number] Feb, [facility] [place] [address] [facility] [id number] [place] [address]- [address] Feb, [facility] [address] [id number] [place] [id number] Jan, [facility] [address] [facility] [id number] [place] [address]- 25[address] Jan, [facility] [address] [id number] [place] [id number] Dec, [facility] [address] [facility] [id number] [place] [address]- 2546 Dec, [facility] [address] [id number], [place] [id number] Dec, [facility] [address] [id number] [place] [id number] Dec, [facility] [address] [id number], [place] [id number] Oct, [facility] [address] [place] [address]- 2546 Oct, [facility] [address] [facility] [id number] [place] [address]- 2546 Oct, [facility] [address] [id number], [place] [id number] Oct, [facility] [address] [id number], [place] [id number] Sep, [facility] [address] [id number] [place] [id number] August, [facility] [address] [id number] [place] [id number] August, [facility] [address] [id number] [place] [id number] August, [facility] [address] [id number] [place] [id number] Jul, [facility] [place] [facility] [address] [id number] [place] [address]- 1998 Jul, [facility] [address] [id number] [place] [id number] Jul, [facility] [address] [id number] [place] [id number] Jun, [facility] [address] [facility] [id number] [place] [address]- [address] Jun, [facility] [address] [id number] [place] [id number] Jun, [facility] [address] [id number] [place] [id number] Jun, [facility] [address] [id number] [place] 684182479 Jun, [facility] [address] [id number] [place] [id number] Jun, [facility] [address] [id number] [place] [id number] Jun, [facility] [address] [id number] [place] 809769325 Feb, [facility] [address] [facility] [id number] [place] [address]- 2546 Feb, [facility] [address] [id number] [place] [id number] Jan, [facility] [address] [id number] [place] [id number] Nov, [facility] [address] [id number] [place] [id number] Oct, [facility] [address] [id number] [place] [id number] Oct, [facility] [address] [id number] [place] [id number] Sep, [facility] [place] [facility] [address] [facility] [id number] [place] [address]- [address] Mar, [facility] [address] [id number] [place] [address]- 5583 Nov, IMMUNIZATIONS No Known Immunizations SOCIAL HISTORY Never Assessed REASON FOR VISIT ED f/u Malia Toney dx back strain after xrays. GIven tylenol #3 for home use Leelee COOMBS PLAN OF CARE Activity Details Follow Up 4 Weeks Reason:depression VITAL SIGNS Height 67 in 2017-11-03 Weight 291.0 lbs 2017-11-03 Temperature 98.4 degrees Fahrenheit 2017-11-03 Heart Rate 96 bpm 2017-11-03 Respiratory Rate 24 2017-11-03 Oximetry 95 % 2017-11-03 BMI 45.57 kg/m2 2017-11-03 Blood pressure systolic 118 mmHg 2017-11-03 Blood pressure diastolic 84 mmHg 2017-11-03 MEDICATIONS Medication Instructions Dosage Frequency Start Date End Date Duration Status Symbicort 80-4.5 MCG/ACT Inhalation Twice a day 2 puffs 12h Jul, Active Paroxetine HCl 40 mg Orally BID one tab 12h Active Tylenol with Codeine #3 300-30 MG Orally every 6 hrs 1 tablet as needed 6h Active Flonase 50 mcg/act Nasally Once a day 2 spray in each nostril 24h Apr, Active Methocarbamol 500 mg Orally 3 times a day 1 tablets 8h 26 Oct, 2016 Active Zyrtec Allergy 10 mg Orally Once a day 1 tablet 24h Active Gabapentin 300 MG Orally 3 times a day 1 capsule 8h Active Spiriva HandiHaler 18 MCG Inhalation Once a day 1 capsule 24h Active Albuterol Sulfate HFA cfc free 90 mcg/inh Inhalation every 4 hrs 2 puffs as needed 4h 15 Dec, 2014 Active Wellbutrin SR 100 mg Orally Twice a day 1 tablet 12h Sep, Active Lisinopril 10 mg 1 tablet Once a day Orally Active Prazosin HCl 2 MG Orally Once a day 2 capsule at bedtime 24h Oct, Active HydrOXYzine HCl 25 MG Orally at bedtime as needed 1-2 tablet as needed fro sleep Sep, Active Pantoprazole Sodium 40 mg Orally [...] Surgical History cholecystectomy 1979 Hospitalization History [facility] for pneumonia 2013 Hospitalization History [facility] 3 days for stomach flu 07/24/15 Hospitalization History [facility] for [facility]-given mag citrate for "blockage" 03/09/2016
--- OUTSIDE RECORDS SUMMARY | 2018-04-15 01:21 | XMS REPORT ---
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 82447515 Problem Sciatica of left side M54.32 Active 91205368 Problem Back pain with left-sided radiculopathy M54.10 Active 703601423 Problem PTSD (post-traumatic stress disorder) F43.10 Active 48170128 Problem Hereditary and idiopathic neuropathy, 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 Active 97774322 Problem Female stress incontinence 625.6 Active 75829991 Problem Essential hypertension I10 Active 10675543 Problem Chronic airway obstruction, not elsewhere classified J44.9 Active 21279260 Problem Nondependent tobacco use disorder 305.1 Active 791672007 Problem Lung nodule R91.1 Active 353567247 Problem Chronic rhinitis J31.0 Active 78479803 Problem Overactive bladder N32.81 Active 714175306 ALLERGIES No Information ENCOUNTERS Encounter Location Date Diagnosis [facility] [address] [facility] [id number], [place] [address] Jan, [facility] [address] [facility] [id number][place] [id number] Jan, [facility] [address] 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 [address] [place] [address] [id number] Nov, BMI 45.0-49.9, adult Z68.42 ; Strain of lumbar region, subsequent encounter S39.012D ; PTSD (post-traumatic stress disorder) F43.10 and Dysthymia F34.1 [place] [id number] [place] [address] [id number] Oct, [place] [id number] [place] [address] [id number] Oct, Dysthymia F34.1 and PTSD (post-traumatic stress disorder) F43.10 [address] [place] [id number] [place] [address] [id number] Oct, BMI 45.0-49.9, adult Z68.42 ; Dysthymia F34.1 ; PTSD (post-traumatic stress disorder) F43.10 and Infective urethritis N34.2 [facility] [address] [id number] [id number] Oct, Dysthymia F34.1 and PTSD (post-traumatic stress disorder) F43.10 [facility] [address] [id number], [place] [id number] Sep, Dysthymia F34.1 and PTSD (post-traumatic stress disorder) F43.10 [address] [place] [address] [id number] Sep, BMI 45.0-49.9, adult Z68.42 and Mood disorder F39 [address] [place] [address] [id number] Sep, [facility] [id number] [place] [address] [id number] Sep, Dysthymia F34.1 [facility] [address] [id number][place] [id number] Sep, Mood disorder F39 [facility] [id number] [place] [id number] August, Dysthymia F34.1 [facility] [address]00565100[place] [id number] August, Dysthymia F34.1 ; Chronic airway obstruction, not elsewhere classified J44.9 ; Back pain with left-sided radiculopathy M54.10 and BMI 45.0-49.9, adult Z68.42 [facility] [place] [id number] [place] [address] [id number] Jul, Urinary tract infection without hematuria, site unspecified N39.0 and Fatigue, unspecified type R53.83 [facility] [address] [place] [address] [id number] Jul, Chronic airway obstruction, not elsewhere classified J44.9 [facility] [address]00565100[place] [address] Jul, BMI 45.0-49.9, adult Z68.42 and Infective urethritis N34.2 [facility] [address] [place] [address] [id number] Jul, [facility] [address] [place] [address] [id number] Jun, Back pain with left-sided radiculopathy M54.10 [facility] [address] [place] [address] [id number] May, Chronic airway obstruction, not elsewhere classified J44.9 and Encounter for immunization Z23 [facility] [place] [id number] [place] [address] [id number] Apr, BMI 45.0-49.9, adult Z68.42 ; Back pain with left-sided radiculopathy M54.10 ; Chronic airway obstruction, not elsewhere classified J44.9 and Dysthymia F34.1 [facility] [address] [address] [id number] [place] [address] [id number] Mar, Sciatica of left side M54.32 ; Back pain with left-sided radiculopathy M54.10 and Hereditary and idiopathic neuropathy, 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 [facility] [id number] [place] [address] [id number] Mar, Flank pain R10.9 ; Urinary urgency R39.15 and Chronic airway obstruction, not elsewhere classified J44.9 [facility] [id number] [place] [address] [id number] Mar, Dysthymia F34.1 [facility] [address] [facility] [address] [id number], [place] [id number] Feb, [facility] [id number] [place] [address] Feb, [facility] [id number] [place] [address] [id number] Feb, Hematuria, unspecified type R31.9 ; Kidney stone N20.0 and BMI 40.0-44.9, adult Z68.41 [facility] [address] [place], [id number] [place] [address] Feb, [facility] [address] [place] [id number] [place] [address] [id number] Feb, [facility] [id number] [place] [address] [id number] Feb, [facility] [id number] [place] [address] [id number] Feb, Dysthymia F34.1 ; Encounter for immunization Z23 ; Acute nasopharyngitis J00 ; Chronic rhinitis J31.0 and Chronic airway obstruction, not elsewhere classified J44.9 [facility] [id number] [place] [address] Jan, Well woman exam Z01.419 ; Left breast lump N63.20 and BMI 40.0-44.9, adult Z68.41 [facility] [id number] [place] [address] [id number] Jan, Muscle cramps R25.2 [facility] [place] [address] [id number], [place] [id number] Dec, Dysthymia F34.1 [facility] [place] [id number] [place] [address] [id number] Dec, Muscle cramps R25.2 [facility] [place] [id number] [place] [address] [id number] Nov, Dysthymia F34.1 [facility] [place] [id number] [place] [address] [id number] Oct, [facility] [place] [id number] [place] [address] [id number] Oct, Chronic airway obstruction, not elsewhere classified J44.9 ; Moderate single current episode of major depressive disorder F32.1 ; Chronic rhinitis J31.0 and Muscle cramps R25.2 [facility] [place] [id number] [place] [address] [id number] Sep, Acute nasopharyngitis J00 [facility] [address]00565100[place], [place] [address] Jun, Acute exacerbation of chronic obstructive pulmonary disease (COPD) J44.1 [facility] [place] [id number] [place] [address] [id number] Jun, Acute nasopharyngitis J00 [facility] [place] [id number] [place] [address] [id number] Jun, [facility] [address] [place] [address] 2548 Apr, [facility] [place] [id number] [place] [address] [id number] Mar, Acute nasopharyngitis J00 [facility] [place] [id number] [place] [address] [id number] Mar, [facility] [place] [id number] [place] [address] [id number] Mar, [facility] [place] [id number] [place] [address] [id number] Feb, CAP (community acquired pneumonia) J18.9 and Chronic rhinitis J31.0 [facility] [id number] [place] [address] [id number] Feb, CAP (community acquired pneumonia) J18.9 [facility] [id number] [place] [address] [id number] Feb, CAP (community acquired pneumonia) J18.9 [facility] [id number] [place] [address] [id number] Feb, [facility] [address] [id number] Jan, Mood disorder F39 [facility] [address] 445046- [address] Jan, [facility] [id number] [place] [address] [id number] Jan, Lung nodule R91.[address] [id number] Jan, Lung nodule R91.1 [place] [id number] [place] [address] [id number] Jan, Lung nodule R91.1 [place] [id number] [place] [address] [id number] Jan, Lung nodule R91.1 [place] [id number] [place] [address] [id number] Jan, [place] [address] [place] [address] [id number] Nov, Overactive bladder N32.81 ; Chronic airway obstruction, not elsewhere classified J44.9 and Essential hypertension I10 [place] [id number] [place] [address] [id number] Oct, [address] [id number] Oct, Acute non-recurrent sinusitis, unspecified location J01.90 ; Cough R05 and Tobacco dependence F17.200 [place] [address] [place] [address] [id number] Sep, Overactive bladder N32.81 and Chronic airway obstruction, not elsewhere classified J44.9 [address] [place] [address] [id number] August, Chronic airway obstruction, not elsewhere classified J44.9 ; Mood disorder F39 and Urinary frequency R35.0 [address] [place] [address] [id number] August, [address] [id number] Jul, Lung nodule R91.1 ; Chronic airway obstruction, not elsewhere classified J44.9 and Urinary tract infection without hematuria, site unspecified N39.0 [place] [id number] [place] [address] [id number] Jul, Lung nodule R91.1 [place] [id number] [place] [address] [id number] Jul, [address] [id number] Jul, Diarrhea R19.7 and Lung nodule R91.1 [place] [id number] [place] [address] [id number] Apr, Upper respiratory tract infection, unspecified type J06.9 and COPD exacerbation J44.1 [address] [place] [address] [id number] Mar, [address] [place] [address] [id number] Feb, Mood disorder F39 and Essential hypertension I10 [address] [place] [address] [id number] Jan, Essential hypertension I10 ; Mood disorder F39 ; Chronic airway obstruction, not elsewhere classified J44.9 and Chronic rhinitis J31.0 [address] [place] [address] [id number] Jan, [facility] [address] [id number] [id number] Jan, [address]005[address]100[place] [id number] Jan, [facility] [address] [id number], [place] [id number] Jan, [facility] [id number], [place] [id number] Dec, Bronchitis [facility] [place] [address] [id number], [place] [id number] Dec, [facility] [id number], [place] [id number] Sep, Rhinitis 472.0 [facility] [place] [facility] [address]005[address]100[place], [place] [address] Jul, [facility] [place] [facility] [address] [place] [address] 88467- 4046 Jul, [facility] [id number], [place] [id number] Jun, [facility] [place] [facility] [id number] [place] [address] 53495- 2146 Jun, [facility] [place] [facility] [address]00565100[place], [place] [address] Jun, [facility] [id number], [place] [id number] May, [facility] [place] [facility] [address]00565100[place], [place] [address] May, [facility] [id number], [place] [id number] Apr, [facility] [place] [facility] [address] [id number], [place] [address]- [address] Apr, [facility] [id number], [place] [id number] Mar, [facility] [place] [facility] [address]00565100[place], [place] [address] Mar, [facility] [address] [id number], [place] [id number] Mar, [facility] [place] [facility] [address]00565100[place], [place] [address]- [address] Mar, [facility] [address] [facility] [id number], [place] [id number] Mar, [facility] [place] [facility] [address] [facility] [id number], [place] [address]- [address] Mar, [facility] [address] [facility] [id number], [place] [id number] Mar, [facility] [place] [facility] [address] [facility] [id number], [place] [address] Mar, [facility] [address] [facility] [id number], [place] [id number] Feb, [facility] [place] [facility] [address] [facility] [id number], [place] [address]- [address] Feb, [facility] [address] [id number], [place] [id number] Feb, [facility] [place] [facility] [address] [facility] [id number], [place] 044623- 239[address] Feb, [facility] [address] [facility] [id number], [place] [id number] Feb, [facility] [place] [facility] [address] [facility] [id number], [place] [address]- 3[address] Feb, [facility] [address] [facility] [id number], [place] [id number] Jan, [facility] [place] [facility] [address] [facility] [id number], [place] [address]- 64[address] Jan, [facility] [address] [facility] [id number], [place] [id number] Jan, [facility] [place] [facility] [address] [facility] [id number], [place] [address]- 6[address] Jan, [facility] [address] [facility] [id number], [place] [id number] Sep, [facility] [place] [facility] [address] [facility] [id number], [place] [address]- 9385 Sep, [facility] [place] [facility] [address] [id number] [place] [address]- [address] Sep, [facility] [address] [facility] [id number] [place] [id number] Sep, [facility] [place] [facility] [address] [facility] [id number] [place] [address]- 9892 Sep, [facility] [place] [facility] [address] [facility] [id number], [place] [address]- 0223 Sep, [facility] [address] [facility] [id number], [place] [id number] Jul, [facility] [place] [facility] [address] [facility] [id number], [place] [address]- 9660 Jul, [facility] [address] [facility] [id number], [place] 068493273 Jun, [facility] [place] [facility] [address] [facility] [id number], [place] [address]- 7557 Jun, [facility] [address] [facility] [id number], [place] [id number] Jun, [facility] [place] [facility] [address] [facility] [id number], [place] [address]- 9[address] Jun, [facility] [address] [facility] [id number], [place] 747294797 Apr, [facility] [place] [facility] [address] [facility] [id number], [place] [address]- 5[address] Apr, [facility] [address] [facility] [id number], [place] [id number] Mar, [facility] [place] [facility] [address] [facility] [id number], [place] [address]- 2146 Mar, [facility] [address] [facility] [id number], [place] [id number] Mar, [facility] [place] [facility] [address] [facility] [id number] [place] [address]- 4186 Mar, [facility] [address] [facility] [id number], [place] [id number] Feb, [facility] [place] [facility] [address] [facility] [id number], [place] [address]- 2546 Feb, [facility] [address] [id number] [place] [id number] Jan, [facility] [place] [facility] [address] [facility] [id number], [place] [address]- 2546 Jan, [facility] [address] [id number], [place] [id number] 30 Dec, 2012 [facility] [place] [facility] [address] [facility] [id number], [place] [address]- 2546 16 Dec, 2012 [facility] [address] [id number] [place] [id number] Dec, [facility] [address] [id number], [place] [id number] Dec, [facility] [address] [id number], [place] [id number] Oct, [facility] [address] [facility] [id number], [place] [address] 2546 Oct, [facility] [place] [facility] [address] [facility] [id number], [place] [address]- 2543 Oct, [facility] [address] [id number], [place] [id number] Oct, [facility] [address] [id number], [place] 918290173 Sep, [facility] [address] [id number], [place] 914652425 August, [facility] [address] [id number], [place] [id number] August, [facility] [address] [id number] [place] [id number] August, [facility] [address] [id number] [place] [id number] Jul, [facility] [place] [facility] [address] [facility] [id number], [place] [address]- 2546 Jul, [facility] [address] [id number] [place] [id number] Jul, [facility] [address] [id number] [place] [id number] Jun, [facility] [address]00565100[place], [place] [address]- 2127 Jun, [facility] [address] [id number] [place] [id number] Jun, [facility] [address] [id number] [place] [id number] Jun, [facility] [address] [id number] [place] [id number] Jun, [facility] [address] [id number] [place] [id number] Jun, [facility] [address] [id number] [place] [id number] Jun, [facility] [address] [id number] [place] [id number] Feb, [facility] [address]00565100[place], [place] [address]- 2546 Feb, [facility] [address] [id number], [place] [id number] Jan, [facility] [address] [id number], [place] [id number] Nov, [facility] [address] [id number], [place] [id number] Oct, [facility] [address] [id number], [place] [id number] Oct, [facility] [address] [id number], [place] [id number] Sep, [facility] [address] [place] [address] 79296- 0807 Mar, [facility] [address]00565100[place], [place] [address] Nov, IMMUNIZATIONS No Known Immunizations SOCIAL HISTORY Never Assessed REASON FOR VISIT f/u PLAN OF CARE Activity Details Follow Up Will set up with [facility] Reason:PTSD VITAL SIGNS MEDICATIONS Unknown Medications RESULTS No Results PROCEDURES Procedure Date Ordered Result Body Site Psychotherapy, patient &/family, 30 minutes, established patient October 15, 2017 INSTRUCTIONS MEDICATIONS ADMINISTERED No Known Medications MEDICAL (GENERAL) HISTORY Type Description Date Medical History hypertension Medical History allergies Medical History chronic obstructive pulmonary disease (COPD) Medical History anxiety Medical History sciatica Medical History acid reflux Medical History Pneumococcal inj (2012) Medical History depression Surgical History cholecystectomy 1979 Hospitalization History Via [facility] for pneumonia 2012 Hospitalization History Via [facility] [place] x 3 days for stomach flu 07/24/15 Hospitalization History [facility] for vomiting-given mag citrate for "blockage" 03/09/2016
--- OUTSIDE RECORDS SUMMARY | 2018-04-15 01:21 | XMS REPORT ---
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 22396066 Problem Sciatica of left side M54.32 Active 15060776 Problem Back pain with left-sided radiculopathy M54.10 Active 161153674 Problem PTSD (post-traumatic stress disorder) F43.10 Active 80786380 Problem Hereditary and idiopathic neuropathy, 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 Active 19589412 Problem Female stress incontinence 625.6 Active 84486086 Problem Essential hypertension I10 Active 14566594 Problem Chronic airway obstruction, not elsewhere classified J44.9 Active 30130711 Problem Nondependent tobacco use disorder 305.1 Active 854694047 Problem Lung nodule R91.1 Active 547510030 Problem Chronic rhinitis J31.0 Active 10933424 Problem Overactive bladder N32.81 Active 263939463 ALLERGIES No Information ENCOUNTERS Encounter Location Date Diagnosis [facility] [address] [facility] [id number] [place] [address] Jan, [facility] [address] [facility] [id number] [id number] Jan, [facility] [address] 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 [address] [place] [address] [id number] Nov, BMI 45.0-49.9, adult Z68.42 ; Strain of lumbar region, subsequent encounter S39.012D ; PTSD (post-traumatic stress disorder) F43.10 and Dysthymia F34.1 [address] [place] [address] [id number] Oct, [address]00565100[place] [address] Oct, Dysthymia F34.1 and PTSD (post-traumatic stress disorder) F43.10 [address]00565100[place] [id number] Oct, BMI 45.0-49.9, adult Z68.42 ; Dysthymia F34.1 ; PTSD (post-traumatic stress disorder) F43.10 and Infective urethritis N34.[address] [facility] [address] [id number], [place] [id number] Oct, Dysthymia F34.1 and PTSD (post-traumatic stress disorder) F43.10 [facility] [address] [id number], [place] 668210091 Sep, Dysthymia F34.1 and PTSD (post-traumatic stress disorder) F43.10 [address]00565100[place] [id number] Sep, BMI 45.0-49.9, adult Z68.42 and Mood disorder F39 [address]00565100[place] [id number] Sep, [facility] [address] [id number], [place] [id number] Sep, Dysthymia F34.1 [address]00565100[place] [id number] Sep, Mood disorder F39 [facility] [place] [address] [facility] [id number], [place] [id number] August, Dysthymia F34.1 [place] [id number] [place] [address] [id number] August, Dysthymia F34.1 ; Chronic airway obstruction, not elsewhere classified J44.9 ; Back pain with left-sided radiculopathy M54.10 and BMI 45.0-49.9, adult Z68.42 [place] [id number] [place] [address] [id number] Jul, Urinary tract infection without hematuria, site unspecified N39.0 and Fatigue, unspecified type R53.83 [place] [id number] [place] [address] [id number] Jul, Chronic airway obstruction, not elsewhere classified J44.9 [address] [place] [address] [id number] Jul, BMI 45.0-49.9, adult Z68.42 and Infective urethritis N34.2 [address] [place] [address] [id number] Jul, [place] [id number] [place] [address] [id number] Jun, Back pain with left-sided radiculopathy M54.10 [address] [place] [address] [id number] May, Chronic airway obstruction, not elsewhere classified J44.9 and Encounter for immunization Z23 [place] [id number] [place] [address] [id number] Apr, BMI 45.0-49.9, adult Z68.42 ; Back pain with left-sided radiculopathy M54.10 ; Chronic airway obstruction, not elsewhere classified J44.9 and Dysthymia F34.1 [facility] [id number], [place] [id number] Mar, Sciatica of left side M54.32 ; Back pain with left-sided radiculopathy M54.10 and Hereditary and idiopathic neuropathy, 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 [facility] [id number] [place] [address] [id number] Mar, Flank pain R10.9 ; Urinary urgency R39.15 and Chronic airway obstruction, not elsewhere classified J44.9 [facility] [id number] [place] [address] [id number] Mar, Dysthymia F34.1 [facility] [id number] [place] [address] [id number] Feb, [facility] [address] [place] [address] Feb, [facility] [address] [id number] [place] [address] [id number] Feb, Hematuria, unspecified type R31.9 ; Kidney stone N20.0 and BMI 40.0-44.9, adult Z68.41 [facility] [address] [place] [id number] [place] [address] Feb, [facility] [address] [id number], [place] [id number] Feb, [facility] [id number] [place] [address] [id number] Feb, [facility] [id number] [place] [address] [id number] Feb, Dysthymia F34.1 ; Encounter for immunization Z23 ; Acute nasopharyngitis J00 ; Chronic rhinitis J31.0 and Chronic airway obstruction, not elsewhere classified J44.9 [facility] [id number] [place] [address] Jan, Well woman exam Z01.419 ; Left breast lump N63.20 and BMI 40.0-44.9, adult Z68.41 [facility] [address] [facility] [id number], [place] [id number] Jan, Muscle cramps R25.2 [facility] [id number] [place] [address] [id number] Dec, Dysthymia F34.1 [facility] [id number] [place] [address] [id number] Dec, Muscle cramps R25.2 [facility] [id number] [place] [address] [id number] Nov, Dysthymia F34.1 [facility] [id number] [place] [address] [id number] Oct, [facility] [id number] [place] [address] [id number] Oct, Chronic airway obstruction, not elsewhere classified J44.9 ; Moderate single current episode of major depressive disorder F32.1 ; Chronic rhinitis J31.0 and Muscle cramps R25.2 [facility] [id number] [place] [address] [id number] Sep, Acute nasopharyngitis J00 [facility] [address]00565100[place], [place] [address] 2543 Jun, Acute exacerbation of chronic obstructive pulmonary disease (COPD) J44.1 [facility] [id number] [place] [address] [id number] Jun, Acute nasopharyngitis J00 [facility] [id number], [place] [id number] Jun, [facility] [address]00565100[place], [place] [address]46 Apr, [facility] [address] [id number], [place] [id number] Mar, Acute nasopharyngitis J00 [facility] [address] [id number], [place] [id number] Mar, [facility] [address] [id number], [place] [id number] Mar, [facility] [place] [address] [id number] Feb, CAP (community acquired pneumonia) J18.9 and Chronic rhinitis J31.0 [place] [id number] [place] [address] [id number] Feb, CAP (community acquired pneumonia) J18.9 [facility] [address] [place] [address] [id number] Feb, CAP (community acquired pneumonia) J18.9 [place] [id number] [place] [address] [id number] Feb, [place] [id number] [place] [address] [id number] Jan, Mood disorder F39 [facility] [address] [place] [id number] [place] [address] 590162- 2541 Jan, [place] [id number] [place] [address] [id number] Jan, Lung nodule R91.1 [place] [id number] [place] [address] [id number] Jan, Lung nodule R91.1 [place] [id number] [place] [address] [id number] Jan, Lung nodule R91.1 [place] [id number] [place] [address] [id number] Jan, Lung nodule R91.1 [address] [place] [address] [id number] Jan, [place] [id number] [place] [address] [id number] Nov, Overactive bladder N32.81 ; Chronic airway obstruction, not elsewhere classified J44.9 and Essential hypertension I10 [address] [id number] Oct, [address] [id number] Oct, Acute non-recurrent sinusitis, unspecified location J01.90 ; Cough R05 and Tobacco dependence F17.[address], [place] [id number] Sep, Overactive bladder N32.81 and Chronic airway obstruction, not elsewhere classified J44.9 [place] [id number] [place] [address] [id number] August, Chronic airway obstruction, not elsewhere classified J44.9 ; Mood disorder F39 and Urinary frequency R35.0 [place] [id number] [place] [address] [id number] August, [address] [id number] Jul, Lung nodule R91.1 ; Chronic airway obstruction, not elsewhere classified J44.9 and Urinary tract infection without hematuria, site unspecified N39.0 [place] [id number] [place] [address] [id number] Jul, Lung nodule R91.1 [place] [id number] [place] [address] [id number] Jul, [address] [id number] Jul, Diarrhea R19.7 and Lung nodule R91.1 [place] [id number] [place] [address] [id number] Apr, Upper respiratory tract infection, unspecified type J06.9 and COPD exacerbation J44.1 [address] [place] [address] [id number] Mar, [place] [id number] [place] [address] [id number] Feb, Mood disorder F39 and Essential hypertension I10 [address] [place] [address] [id number] Jan, Essential hypertension I10 ; Mood disorder F39 ; Chronic airway obstruction, not elsewhere classified J44.9 and Chronic rhinitis J31.0 [address] [place] [address] [id number] Jan, [facility] [address] [place] [address] [id number] Jan, [facility] [place] [address] [facility] [id number], [place] [id number] Jan, [facility] [address] [facility] [id number], [place] [phone] Jan, [facility] [address] [place] [id number], [place] [id number] Dec, [place] [address] [facility] [address] [place] [id number] [id number] Dec, [facility] [id number], [place] [id number] Sep, Rhinitis 472.0 [facility] [place] [facility] [address]00565100[place], [place] [address] Jul, [facility] [place] [facility] [address]00565100[place], [place] [address]- 56[address] Jul, [facility] [id number], [place] [id number] Jun, [facility] [place] [facility] [address]00565100[place], [place] [address]- 67[address] Jun, [facility] [place] [facility] [address]00565100[place], [place] [address]- 7681 Jun, [facility] [address] [place] [id number], [place] [id number] May, [facility] [place] [facility] [address]00565100[place], [place] [address]- 8[address] May, [facility] [address] [place] [place] [id number], [place] [id number] Apr, [facility] [place] [facility] [address] [place] [id number], [place] [address]- 4427 Apr, [facility] [address] [place] [id number], [place] [id number] Mar, [facility] [place] [facility] [address] [place] [id number], [place] [address]- 0916 Mar, [facility] [address] [facility] [id number], [place] [id number] Mar, [facility] [place] [facility] [address] [facility] [id number] [place] [address]- 8448 Mar, [facility] [address] [id number] [place] [id number] Mar, [facility] [place] [facility] [address] [facility] [id number], [place] [address]- 6698 Mar, [facility] [address] [id number] [place] [id number] Mar, [facility] [place] [facility] [address] [facility] [id number], [place] [address]- 7167 Mar, [facility] [address] [id number] [place] [id number] Feb, [facility] [place] [facility] [address] [place] [id number], [place] [address]- 0403 Feb, [facility] [address] [facility] [id number], [place] [id number] Feb, [facility] [place] [facility] [address] [facility] [id number], [place] [address]- 4013 Feb, [facility] [address] [facility] [id number], [place] [id number] Feb, [facility] [place] [facility] [address] [facility] [id number], [place] [address]- 4194 Feb, [facility] [address] [facility] [id number], [place] [id number] Jan, [facility] [place] [facility] [address] [facility] [id number], [place] [address]- 7546 Jan, [facility] [address] [facility] [id number], [place] [id number] Jan, [facility] [place] [facility] [address] [facility] [id number], [place] [address]- 7147 Jan, [facility] [address] [facility] [id number], [place] [id number] Sep, [facility] [place] [facility] [address] [facility] [id number], [place] 43135065- 4516 Sep, [facility] [place] [facility] [address] [facility] [id number] [place] [address]- 5258 Sep, [facility] [address] [id number] [place] [id number] Sep, [facility] [place] [facility] [address] [facility] [id number] [place] [address]- 2296 Sep, [facility] [place] [facility] [address] [facility] [id number], [place] [address]- 2583 Sep, [facility] [address] [id number] [place] [id number] Jul, [facility] [place] [facility] [address] [facility] [id number] [place] [address]- 8916 Jul, [facility] [address] [facility] [id number] [place] [id number] Jun, [facility] [place] [facility] [address] [facility] [id number], [place] [address]- 5463 Jun, [facility] [address] [facility] [id number], [place] [id number] Jun, [facility] [place] [facility] [address] [facility] [id number], [place] [address]- 0655 Jun, [facility] [address] [facility] [id number], [place] [id number] Apr, [facility] [place] [facility] [address] [facility] [id number], [place] [address]- 4163 Apr, [facility] [address] [facility] [id number], [place] [id number] Mar, [facility] [place] [facility] [address] [facility] [id number], [place] [address]- 4893 Mar, [facility] [address] [facility] [id number], [place] [id number] Mar, [facility] [place] [facility] [address] [facility] [id number], [place] [address]- 4177 Mar, [facility] [address] [id number] [place] [id number] Feb, [facility] [address] [id number], [place] [address]- 2546 Feb, [facility] [address] [id number] [place] [id number] Jan, [facility] [place] [facility] [address] [facility] [id number], [place] [address]- 2546 Jan, [facility] [address] [id number] [place] [id number] Dec, [facility] [place] [facility] [address] [facility] [id number] [place] [address]- 9027 16 Dec, 2012 [facility] [address] [id number] [place] [id number] Dec, [facility] [address] [id number] [place] [id number] Dec, [facility] [address] [id number] [place] [id number] Oct, [facility] [address] [facility] [id number], [place] [address]- 0596 Oct, [facility] [place] [facility] [address] [id number] [address]- 2546 Oct, [facility] [address] [id number], [place] [id number] Oct, [facility] [address] [id number] [place] [id number] Sep, [facility] [address] [id number] [place] [id number] August, [facility] [address] [id number] [place] [id number] August, [facility] [address] [id number] [place] [id number] August, [facility] [address] [id number] [place] [id number] Jul, [facility] [place] [facility] [address] [facility] [id number], [place] [address]- 4346 Jul, [facility] [address] [id number] [place] 782394700 Jul, [facility] [address] [id number] [place] 102725224 Jun, [facility] [address]00565100[place], [place] [address]- 4241 Jun, [facility] [address] [id number] [place] [id number] Jun, [facility] [address] [id number] [place] 468229044 Jun, [facility] [address] [id number] [place] [id number] Jun, [facility] [address] [id number] [place] [id number] Jun, [facility] [address] [id number] [place] [id number] Jun, [facility] [address] [id number] [place] [id number] Feb, [facility] [address]00565100[place], [place] [address]- 2549 Feb, [facility] [address] [id number] [place] [id number] Jan, [facility] [address] [id number] [place] [id number] Nov, [facility] [address] [id number], [place] [id number] Oct, [facility] [address] [id number], [place] [id number] Oct, [facility] [address] [id number], [place] [id number] Sep, [facility] [address]00565100[place], [place] [address]- 1114 Mar, [facility] [address] [id number], [place] [address]- 4154 Nov, IMMUNIZATIONS No Known Immunizations SOCIAL HISTORY Never Assessed REASON FOR VISIT Medication refill request PLAN OF CARE VITAL SIGNS MEDICATIONS Unknown Medications RESULTS No Results PROCEDURES No Known procedures INSTRUCTIONS MEDICATIONS ADMINISTERED No Known Medications MEDICAL (GENERAL) HISTORY Type Description Date Medical History hypertension Medical History allergies Medical History chronic obstructive pulmonary disease (COPD) Medical History anxiety Medical History sciatica Medical History acid reflux Medical History Pneumococcal inj (2012) Medical History depression Surgical History cholecystectomy 1979 [facility] Hospitalization History [facility] x 3 days for stomach flu 07/24/15 Hospitalization History [facility] for vomiting-given mag citrate for "blockage" 03/09/2016
--- OUTSIDE RECORDS SUMMARY | 2018-04-15 01:22 | XMS REPORT ---
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 34555235 Problem PTSD (post-traumatic stress disorder) F43.10 Active 81197441 Problem Back pain with left-sided radiculopathy M54.10 Active 975869468 Problem Kidney stone N20.0 Active 05025245 Problem Sciatica of left side M54.32 Active 66491140 Problem Hereditary and idiopathic neuropathy, 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 Active 35196426 Problem Chronic rhinitis J31.0 Active 93365326 Problem Essential hypertension I10 Active 76414543 Problem Female stress incontinence 625.6 Active 21209987 Problem Chronic airway obstruction, not elsewhere classified J44.9 Active 37538125 Problem Nondependent tobacco use disorder 305.1 Active 127052210 Problem Lung nodule R91.1 Active 209674437 ALLERGIES No Information ENCOUNTERS Encounter Location Date Diagnosis [facility] [address] [id number], [place] [address] Jan, [facility] [address] [facility] [id number] [id number] Dec, [facility] [address] [id number][place] [id number] Nov, Dysthymia F34.1 [facility] [address] [id number], [place] [address] Nov, PTSD (post-traumatic stress disorder) F43.10 and 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 [facility] [place] [id number][place] [id number] Nov, BMI 45.0-49.9, adult Z68.42 ; Strain of lumbar region, subsequent encounter S39.012D ; PTSD (post-traumatic stress disorder) F43.10 and Dysthymia F34.1 [facility] [id number] [place] [address] [id number] Oct, [facility] [id number] [place] [address] [phone] Oct, Dysthymia F34.1 and PTSD (post-traumatic stress disorder) F43.10 [id number] [place] [address] [id number] Oct, BMI 45.0-49.9, adult Z68.42 ; Dysthymia F34.1 ; PTSD (post-traumatic stress disorder) F43.10 and Infective urethritis N34.2 [facility] [id number] [place] [address] [id number] Oct, Dysthymia F34.1 and PTSD (post-traumatic stress disorder) F43.10 [id number] [place] [address] [id number] Sep, Dysthymia F34.1 and PTSD (post-traumatic stress disorder) F43.10 [address] [place] [address] [id number] Sep, BMI 45.0-49.9, adult Z68.42 and Mood disorder F39 [address] [place] [address] [id number] Sep, [facility] [id number] [place] [address] [id number] Sep, Dysthymia F34.1 [facility] [address] [place] [address] [id number] Sep, Mood disorder F39 [facility] [id number] [place] [address] [id number] August, Dysthymia F34.1 [facility] [id number] [place] [address] [id number] August, Dysthymia F34.1 ; Chronic airway obstruction, not elsewhere classified J44.9 ; Back pain with left-sided radiculopathy M54.10 and BMI 45.0-49.9, adult Z68.42 [facility] [id number] [place] [address] [id number] Jul, Urinary tract infection without hematuria, site unspecified N39.0 and Fatigue, unspecified type R53.83 [id number] [place] [address] [id number] Jul, Chronic airway obstruction, not elsewhere classified J44.9 [id number] [place] [address] [id number] Jul, BMI 45.0-49.9, adult Z68.42 and Infective urethritis N34.2 [id number] [place] [address] [id number] Jul, [facility] [id number] [place] [address] [id number] Jun, Back pain with left-sided radiculopathy M54.10 [facility] [id number] [place] [address] [id number] May, Chronic airway obstruction, not elsewhere classified J44.9 and Encounter for immunization Z23 [address] [place] [address] [id number] Apr, BMI 45.0-49.9, adult Z68.42 ; Back pain with left-sided radiculopathy M54.10 ; Chronic airway obstruction, not elsewhere classified J44.9 and Dysthymia F34.1 [id number] [place] [address] [id number] Mar, Sciatica of left side M54.32 ; Back pain with left-sided radiculopathy M54.10 and Hereditary and idiopathic neuropathy, 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 [id number] [place] [address] [id number] Mar, Flank pain R10.9 ; Urinary urgency R39.15 and Chronic airway obstruction, not elsewhere classified J44.9 [facility] [id number] [place] [address] [id number] Mar, Dysthymia F34.1 [facility] [address] [id number][place] [id number] Feb, [facility] [id number] [place] [address] Feb, [facility] [id number] [place] [address] [id number] Feb, Hematuria, unspecified type R31.9 ; Kidney stone N20.0 and BMI 40.0-44.9, adult Z68.41 [facility] [address] [place], [place] [id number] [address] Feb, [facility] [address] [facility] AV [id number][place] [id number] Feb, [facility] [id number] [place] [address] [id number] Feb, [facility] [id number] [place] [address] [id number] Feb, Dysthymia F34.1 ; Encounter for immunization Z23 ; Acute nasopharyngitis J00 ; Chronic rhinitis J31.0 and Chronic airway obstruction, not elsewhere classified J44.9 [facility] [address]005[address], [place] [address] Jan, Well woman exam Z01.419 ; Left breast lump N63.20 and BMI 40.0-44.9, adult Z68.41 [facility] [id number] [place] [address] [id number] Jan, Muscle cramps R25.2 [facility] [id number] [place] [address] [id number] Dec, Dysthymia F34.1 [facility] [id number] [place] [address] [id number] Dec, Muscle cramps R25.2 [facility] [place] [id number] [place] [address] [id number] Nov, Dysthymia F34.1 [facility] [place] [id number] [place] [address] [id number] Oct, [facility] [id number] [place] [address] [id number] Oct, Chronic airway obstruction, not elsewhere classified J44.9 ; Moderate single current episode of major depressive disorder F32.1 ; Chronic rhinitis J31.0 and Muscle cramps R25.2 [facility] [id number] [place] [address] [id number] Sep, Acute nasopharyngitis J00 [facility] [id number] [place] [address] 7[address] 2540 Jun, Acute exacerbation of chronic obstructive pulmonary disease (COPD) J44.1 [facility] [id number] [place] [address] [id number] Jun, Acute nasopharyngitis J00 [facility] [id number] [place] [address] [id number] Jun, [facility] [id number] [place] [address]08- 8[address] Apr, [facility] [id number] [place] [address] [id number] Mar, Acute nasopharyngitis J00 [facility] [id number] [place] [address] [id number] Mar, [facility] [id number] [place] [address] [id number] Mar, [facility] [id number] [place] [address] [id number] Feb, CAP (community acquired pneumonia) J18.9 and Chronic rhinitis J31.0 [facility] [place] [id number] [place] [address] [id number] Feb, CAP (community acquired pneumonia) J18.9 [facility] [place] [id number] [place] [address] [id number] Feb, CAP (community acquired pneumonia) J18.9 [facility] [id number], [place] [id number] Feb, [facility] [id number] [place] [address] [id number] Jan, Mood disorder F39 [facility] [address], [place] [address] Jan, [facility] [id number] [place] [address] [id number] Jan, Lung nodule R91.1 [facility] [id number] [place] [address] [id number] Jan, Lung nodule R91.1 [facility] [id number] [place] [address] [id number] Jan, Lung nodule R91.1 [facility] [id number] [place] [address] [id number] Jan, Lung nodule R91.1 [facility] [id number] [place] [address] [id number] Jan, [facility] [id number] [place] [address] [id number] Nov, Overactive bladder N32.81 ; Chronic airway obstruction, not elsewhere classified J44.9 and Essential hypertension I10 [id number] [place] [address] [id number] Oct, [address] [place] [address] [id number] Oct, Acute non-recurrent sinusitis, unspecified location J01.90 ; Cough R05 and Tobacco dependence F17.200 [address] [place] [address] [id number] Sep, Overactive bladder N32.81 and Chronic airway obstruction, not elsewhere classified J44.9 [address]00565100[place] [id number] August, Chronic airway obstruction, not elsewhere classified J44.9 ; Mood disorder F39 and Urinary frequency R35.0 [address] [id number] [id number] August, [address]005[address]100[place] [id number] Jul, Lung nodule R91.1 ; Chronic airway obstruction, not elsewhere classified J44.9 and Urinary tract infection without hematuria, site unspecified N39.0 [facility] [address]00565100[place] [id number] Jul, Lung nodule R91.1 [address] [place] [address] [id number] Jul, [address] [place] [address] [id number] Jul, Diarrhea R19.7 and Lung nodule R91.[address] [place] [address] [id number] Apr, Upper respiratory tract infection, unspecified type J06.9 and COPD exacerbation J44.1 [address] [place] [address] [id number] Mar, [address] [place] [address] [id number] Feb, Mood disorder F39 and Essential hypertension I10 [address] [place] [address] [id number] Jan, Essential hypertension I10 ; Mood disorder F39 ; Chronic airway obstruction, not elsewhere classified J44.9 and Chronic rhinitis J31.0 [address]00565100[place] [id number] Jan, [address] [id number][place] [address] Jan, [facility] [address] [facility] [id number], [place] [id number] Jan, [facility] [address]005[address]100[place] [id number] Jan, [address]00565100[place] [id number] Dec, Bronchitis [address]00565100[place], [place] [phone] Dec, [facility] [address] [id number], [place] [id number] Sep, Rhinitis 472.0 [facility] [place] [facility] [address]005[address], [place] [address] Jul, [facility] [place] [address]005[address]100[place], [place] [address] Jul, [facility] [address] [id number], [place] [id number] Jun, [facility] [place] [address]005[address]100[place], [place] [address]- [address] Jun, [facility] [place] [address]005[address]100[place], [place] [address] 2546 Jun, [facility] [id number], [place] [id number] May, [facility] [place] [address]00565100[place], [place] [address]- [address] May, [facility] [address] [id number], [place] [id number] Apr, [facility] [place] [address]005[address]100[place], [place] [address]- 275[address] Apr, [facility] [address] [id number], [place] [id number] Mar, [facility] [place] [id number], [place] [address] Mar, [facility] [address] [id number], [place] 676162508 Mar, [facility] [place] [facility] [address]005[address], [place] [address] Mar, [facility] [address] [id number], [place] [id number] Mar, [facility] [place] [facility] [id number], [place] [address] 269[address] Mar, [facility] [address] [id number] [place] [id number] Mar, [facility] [place] [facility] [address] [facility] [id number], [place] [address]- [address] Mar, [facility] [address] [id number] [place] [id number] Feb, [facility] [place] [facility] [address] [facility] [id number], [place] [address]- 5[address] Feb, [facility] [address] [facility] [id number] [place] [id number] Feb, [facility] [place] [facility] [address] [facility] [id number], [place] [address]- [address] Feb, [facility] [address] [facility] [id number], [place] [id number] Feb, [facility] [place] [facility] [address] [facility] [id number], [place] [address]- 7616 Feb, [facility] [address] [facility] [id number], [place] [id number] Jan, [facility] [place] [facility] [address] [facility] [id number], [place] [address]- 15[address] Jan, [facility] [address] [facility] [id number], [place] [id number] Jan, [facility] [place] [facility] [address] [facility] [id number], [place] [address]- 7[address] Jan, [facility] [address] [facility] [id number], [place] 311753883 Sep, [facility] [place] [facility] [address] [facility] [id number], [place] [address]- 6740 Sep, [facility] [place] [facility] [address] [facility] [id number], [place] [address]- 1458 Sep, [facility] [address] [facility] [id number], [place] 880619464 Sep, [facility] [place] [facility] [address] [facility] [id number], [place] [address]- 3613 Sep, [facility] [place] [facility] [address] [facility] [id number], [place] [address]- 6038 Sep, [facility] [address] [facility] [id number], [place] [id number] Jul, [facility] [place] [facility] [address] [facility] [id number], [place] [address]- 9366 Jul, [facility] [address] [facility] [id number] [place] [id number] Jun, [facility] [place] [facility] [address] [facility] [id number], [place] [address]- 0499 Jun, [facility] [address] [facility] [id number], [place] 300488495 Jun, [facility] [place] [facility] [address] [facility] [id number], [place] [address]- 9686 Jun, [facility] [address] [id number], [place] 784368794 Apr, [facility] [place] [facility] [address]005[address], [place] [address]- 1189 Apr, [facility] [address] [facility] [id number], [place] [id number] Mar, [facility] [place] [facility] [address]005[address]100[place], [place] [address]- 1396 Mar, [facility] [address] [facility] [id number], [place] [id number] Mar, [facility] [place] [facility] [address] [facility] [id number], [place] [address]- 2615 Mar, [facility] [address] [facility] [id number], [place] [id number] Feb, [facility] [place] [facility] [address] [facility] [id number], [place] [address]- 7246 Feb, [facility] [address] [facility] [id number], [place] [id number] 14 Jan, 2013 [facility] [place] [facility] [address] [facility] [id number], [place] [address]- 2546 Jan, [facility] [address] [id number] [place] [id number] 30 Dec, 2012 [facility] [address] [facility] [id number], [place] [address]- 3039 16 Dec, 2012 [facility] [address] [id number] [place] [id number] Dec, [facility] [address] [id number] [place] [id number] Dec, [facility] [address] [id number] [place] [id number] Oct, [facility] [address] [facility] [id number] [address]- 2546 Oct, [facility] [address] [facility] [id number], [place] [address]- 2831 Oct, [facility] [address] [id number] [place] [id number] Oct, [facility] [address] [id number] [place] 579010911 Sep, [facility] [address] [id number] [place] [id number] August, [facility] [address] [id number] [place] [id number] August, [facility] [address] [id number] [place] [id number] August, [facility] [address] [id number] [place] [id number] Jul, [facility] [address] [id number], [place] [address]- 2549 Jul, [facility] [address] [id number] [place] [id number] Jul, [facility] [address] [id number] [place] [id number] Jun, [facility] [address] [facility] [id number], [place] [address]- 9368 Jun, [facility] [address] [id number], [place] [id number] Jun, [facility] [address] [id number], [place] 300052671 Jun, [facility] [address] [id number], [place] 003104546 Jun, [facility] [address] [id number], [place] [id number] Jun, [facility] [id number] [place] [address] [id number] Jun, [facility] [address] [id number], [place] 433440058 Feb, [facility] [id number] [place] [address]- 2546 Feb, [facility] [id number] [place] [address] [id number] Jan, [facility] [id number] [place] [address] [id number] Nov, [facility] [id number] [place] [address] [id number] Oct, [facility] [id number] [place] [address] [id number] Oct, [facility] [id number], [place] [id number] Sep, [address] [place] [address] 95925- 2546 Mar, [facility] [id number] [place] [address] 99626- 2546 Nov, IMMUNIZATIONS No Known Immunizations SOCIAL HISTORY Never Assessed REASON FOR VISIT Followup PLAN OF CARE Activity Details Follow Up Next available Reason: VITAL SIGNS MEDICATIONS Unknown Medications RESULTS No Results PROCEDURES Procedure Date Ordered Result Body Site Psychotherapy, patient &/family, 30 minutes, established patient October 07, 2017 INSTRUCTIONS MEDICATIONS ADMINISTERED No Known Medications MEDICAL (GENERAL) HISTORY Type Description Date Medical History hypertension Medical History allergies Medical History chronic obstructive pulmonary disease (COPD) Medical History anxiety Medical History sciatica Medical History acid reflux Medical History Pneumococcal inj (2012) Medical History depression Surgical History cholecystectomy 1979 Hospitalization History Via [facility] for pneumonia 2012 Hospitalization History Via [facility] x 3 days for stomach flu 07/24/15 Hospitalization History [facility] for [facility]-given mag citrate for "blockage" 03/09/2016
--- OUTSIDE RECORDS SUMMARY | 2018-04-15 01:22 | XMS REPORT ---
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 59229183 Problem PTSD (post-traumatic stress disorder) F43.10 Active 20326493 Problem Back pain with left-sided radiculopathy M54.10 Active 476534600 Problem Kidney stone N20.0 Active 74661814 Problem Sciatica of left side M54.32 Active 34455735 Problem Hereditary and idiopathic neuropathy, 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 Active 63354178 Problem Chronic rhinitis J31.0 Active 17096909 Problem Essential hypertension I10 Active 42944779 Problem Female stress incontinence 625.6 Active 75864564 Problem Chronic airway obstruction, not elsewhere classified J44.9 Active 23708738 Problem Nondependent tobacco use disorder 305.1 Active 572466037 Problem Lung nodule R91.1 Active 631385153 ALLERGIES Substance Reaction Event Type Date Status Penicillin V Potassium rash Drug Allergy Sep, Active Aspirin rash Drug Allergy Sep, Active ENCOUNTERS Encounter Location Date Diagnosis [facility] [address] [facility] [id number] [address] Jan, [facility] [address] [facility] [id number] [place] [id number] Dec, [facility] [address] [facility] [id number] [place] [id number] Nov, Dysthymia F34.1 [facility] [address]00565[address], [place] [address] Nov, PTSD (post-traumatic stress disorder) F43.10 and 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 [facility] [address] [place] [address] [id number] Nov, BMI 45.0-49.9, adult Z68.42 ; Strain of lumbar region, subsequent encounter S39.012D ; PTSD (post-traumatic stress disorder) F43.10 and Dysthymia F34.1 [facility] [place] [id number] [place] [address] [id number] Oct, [facility] [place] [id number] [place] [address] [id number] Oct, Dysthymia F34.1 and PTSD (post-traumatic stress disorder) F43.10 [facility] [address] [place] [address] [id number] Oct, BMI 45.0-49.9, adult Z68.42 ; Dysthymia F34.1 ; PTSD (post-traumatic stress disorder) F43.10 and Infective urethritis N34.[address] [facility] [id number] [place] [address] [id number] Oct, Dysthymia F34.1 and PTSD (post-traumatic stress disorder) F43.[address] [facility] [address] [id number] [id number] Sep, Dysthymia F34.1 and PTSD (post-traumatic stress disorder) F43.10 [facility] [address]00565100[place] [id number] Sep, BMI 45.0-49.9, adult Z68.42 and Mood disorder F39 [facility] [address] [place] [address] [id number] Sep, [facility] [id number] [place] [address] [id number] Sep, Dysthymia F34.1 [facility] [address] [place] [address] [id number] Sep, Mood disorder F39 [place] [address] [facility] [address] [id number] [id number] August, Dysthymia F34.1 [address] [id number] August, Dysthymia F34.1 ; Chronic airway obstruction, not elsewhere classified J44.9 ; Back pain with left-sided radiculopathy M54.10 and BMI 45.0-49.9, adult Z68.42 [address]00565100[place] [id number] Jul, Urinary tract infection without hematuria, site unspecified N39.0 and Fatigue, unspecified type R53.83 [address]005[address]100[place] [id number] Jul, Chronic airway obstruction, not elsewhere classified J44.9 [address] [place] [address] [id number] Jul, BMI 45.0-49.9, adult Z68.42 and Infective urethritis N34.2 [address] [place] [address] [id number] Jul, [place] [id number] [place] [address] [id number] Jun, Back pain with left-sided radiculopathy M54.10 [address] [place] [address] [id number] May, Chronic airway obstruction, not elsewhere classified J44.9 and Encounter for immunization Z23 [address] [place] [address] [id number] Apr, BMI 45.0-49.9, adult Z68.42 ; Back pain with left-sided radiculopathy M54.10 ; Chronic airway obstruction, not elsewhere classified J44.9 and Dysthymia F34.[address] [id number] [place] [id number] Mar, Sciatica of left side M54.32 ; Back pain with left-sided radiculopathy M54.10 and Hereditary and idiopathic neuropathy, 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 [facility] [id number] [place] [address] [id number] Mar, Flank pain R10.9 ; Urinary urgency R39.15 and Chronic airway obstruction, not elsewhere classified J44.9 [facility] [id number] [place] [address] [id number] Mar, Dysthymia F34.1 [facility] [address] [facility] [address] [id number] [place] [address] [id number] Feb, [facility] [address] [place] [id number] [place] [address] Feb, [facility] [address] [place] [id number] [place] [address] [id number] Feb, Hematuria, unspecified type R31.9 ; Kidney stone N20.0 and BMI 40.0-44.9, adult Z68.41 [facility] [address] [place], [place] [id number] [place] [address] Feb, [facility] [address] [place] [id number] [place] [address] [id number] Feb, [facility] [address] [place] [id number] [place] [address] [id number] Feb, [facility] [address] [place] [id number] [place] [address] [id number] Feb, Dysthymia F34.1 ; Encounter for immunization Z23 ; Acute nasopharyngitis J00 ; Chronic rhinitis J31.0 and Chronic airway obstruction, not elsewhere classified J44.9 [facility] [address] [place] [address] Jan, Well woman exam Z01.419 ; Left breast lump N63.20 and BMI 40.0-44.9, adult Z68.41 [facility] [id number] [place] [address] [id number] Jan, Muscle cramps R25.2 [facility] [address] [place] [id number] [place] [address] [id number] Dec, Dysthymia F34.1 [facility] [address] [place] [id number] [place] [address] [id number] Dec, Muscle cramps R25.2 [facility] [address] [place] [id number] [place] [address] [id number] Nov, Dysthymia F34.1 [facility] [address] [place] [id number] [place] [address] [id number] Oct, [facility] [address] [id number] Oct, Chronic airway obstruction, not elsewhere classified J44.9 ; Moderate single current episode of major depressive disorder F32.1 ; Chronic rhinitis J31.0 and Muscle cramps R25.2 [facility] [address] [id number] Sep, Acute nasopharyngitis J00 [facility] WALK IN [facility] [address] [address] Jun, Acute exacerbation of chronic obstructive pulmonary disease (COPD) J44.1 [place] [address] [place] [id number] [place] [address] [id number] Jun, Acute nasopharyngitis J00 [facility] [address] [place] [id number] [place] [address] [id number] Jun, [facility] [address] [place] [place] [id number] [place] [address] Apr, [facility] [address] [place] [address] [id number] [place] [address] [id number] Mar, Acute nasopharyngitis J00 [facility] [address] [place] [id number] [place] [address] [id number] Mar, [facility] [address] [id number] Mar, [facility] [address] [id number] Feb, CAP (community acquired pneumonia) J18.9 and Chronic rhinitis J31.0 [facility] [address] [place] [id number] [place] [address] [id number] Feb, CAP (community acquired pneumonia) J18.9 [facility] [id number] [place] [address] [id number] Feb, CAP (community acquired pneumonia) J18.9 [facility] [id number] [place] [address] [id number] Feb, [facility] [address] [place] [id number] [place] [address] [id number] Jan, Mood disorder F39 [facility] [address] [place] [id number] [place] [address] 512529- 7[address] Jan, [facility] [address] [place] [id number] [place] [address] [id number] Jan, Lung nodule R91.1 [facility] [address] [place] [id number] [place] [address] [id number] Jan, Lung nodule R91.1 [facility] [address] [place] [id number] [place] [address] [id number] Jan, Lung nodule R91.1 [facility] [address] [place] [id number] [place] [address] [id number] Jan, Lung nodule R91.1 [facility] [address] [place] [id number] [place] [address] [id number] Jan, [facility] [address] [place] [id number] [place] [address] [id number] Nov, Overactive bladder N32.81 ; Chronic airway obstruction, not elsewhere classified J44.9 and Essential hypertension I10 [facility] [address] [place] [id number] [place] [address] [id number] Oct, [facility] [address] [place] [id number] [place] [address] [id number] Oct, Acute non-recurrent sinusitis, unspecified location J01.90 ; Cough R05 and Tobacco dependence F17.200 [facility] [address] [place] [id number] [place] [address] [id number] Sep, Overactive bladder N32.81 and Chronic airway obstruction, not elsewhere classified J44.9 [place] [id number] [place] [address] [id number] August, Chronic airway obstruction, not elsewhere classified J44.9 ; Mood disorder F39 and Urinary frequency R35.0 [place] [id number] [place] [address] [id number] August, [place] [id number] [place] [address] [id number] Jul, Lung nodule R91.1 ; Chronic airway obstruction, not elsewhere classified J44.9 and Urinary tract infection without hematuria, site unspecified N39.0 [facility] [id number] [place] [id number] Jul, Lung nodule R91.1 [address] [place] [address] [id number] Jul, [place] [id number] [place] [address] [id number] Jul, Diarrhea R19.7 and Lung nodule R91.1 [place] [id number] [place] [address] [id number] Apr, Upper respiratory tract infection, unspecified type J06.9 and COPD exacerbation J44.1 [address] [place] [address] [id number] Mar, [place] [address] [place] [id number] [place] [address] [id number] Feb, Mood disorder F39 and Essential hypertension I10 [address] [id number] Jan, Essential hypertension I10 ; Mood disorder F39 ; Chronic airway obstruction, not elsewhere classified J44.9 and Chronic rhinitis J31.0 [facility] [address] [facility] [id number] [place] [id number] Jan, [facility] [address] [id number] [place] [id number] Jan, [facility] [address] [facility] [id number] [phone] Jan, [address] [id number] [place] [id number] Jan, [address] [id number] [place] [id number] Dec, Bronchitis [facility] [id number] [place] [id number] Dec, [facility] [id number] [place] [id number] Sep, Rhinitis 472.0 [facility] [place] [facility] [address], [place] [address] Jul, [facility] [place] [address], [place] [address] 30[address] Jul, [facility] [id number] [place] [id number] Jun, [facility] [place] [facility] [address]005[address], [place] [address] Jun, [facility] [place] [address], [place] [address] 288[address] Jun, [facility] [id number] [place] [id number] May, [facility] [place] [address]65100[place], [place] [address] May, [facility] [address] [place] [id number] [place] [id number] Apr, [facility] [place] [address] [place] [id number], [place] [address] Apr, [facility] [address] [place] [id number] [place] [id number] Mar, [facility] [place] [facility] [address] [place] [id number], [place] [address] 8[address] Mar, [facility] [address] [place] [id number] [place] [id number] Mar, [facility] [place] [facility] [address] [place] [id number], [place] [address]- 7256 Mar, [facility] [address] [place] [id number] [place] [id number] Mar, [facility] [place] [facility] [address] [id number] [place] [address]- 6986 Mar, [facility] [address] [id number] [place] [id number] Mar, [facility] [place] [facility] [address] [id number] [place] [address]- 5[address] Mar, [facility] [address] [id number] [place] [id number] Feb, [facility] [place] [facility] [address] [id number] [place] [address]- 6356 Feb, [facility] [address] [id number] [place] [id number] Feb, [facility] [place] [facility] [address] [facility] [id number] [place] [address]- 7466 Feb, [facility] [address] [id number] [place] [id number] Feb, [facility] [place] [facility] [address] [facility] [id number], [place] [address]- [address] Feb, [facility] [address] [id number] [place] [id number] Jan, [facility] [place] [facility] [address] [facility] [id number], [place] [address]- 8766 Jan, [facility] [address] [id number] [place] [id number] Jan, [facility] [place] [facility] [address] [facility] [id number], [place] [address]- 45[address] Jan, [facility] [address] [id number] [place] [id number] Sep, [facility] [place] [facility] [address] [facility] [id number] [place] [address]- 1889 Sep, [facility] [place] [facility] [address] [facility] [id number] [place] [address]- 1400 Sep, [facility] [address] [id number] [place] [id number] Sep, [facility] [place] [facility] [address] [id number] [place] [address]- 7030 Sep, [facility] [place] [facility] [address] [facility] [id number] [place] [address]- 9736 Sep, [facility] [address] [facility] [id number] [place] [id number] Jul, [facility] [place] [facility] [address] [facility] [id number], [place] [address]- 0616 Jul, [facility] [address] [id number] [place] [id number] Jun, [facility] [place] [facility] [address] [facility] [id number], [place] [address]- 4[address] Jun, [facility] [address] [id number] [place] [id number] Jun, [facility] [place] [facility] [address] [facility] [id number], [place] [address]- 0786 Jun, [facility] [address] [id number] [place] [id number] Apr, [facility] [place] [facility] [address] [facility] [id number], [place] [address]- 1466 Apr, [facility] [address] [id number] [place] [id number] Mar, [facility] [place] [facility] [address] [facility] [id number], [place] [address]- 0356 Mar, [facility] [address] [id number] [place] [id number] Mar, [facility] [place] [facility] [address] [facility] [id number], [place] [address]- 9153 Mar, [facility] [address] [facility] [id number] [place] [id number] Feb, [facility] [place] [facility] [address] [facility] [id number] [place] [address]- 8129 Feb, [facility] [address] [id number] [place] [id number] 14 Jan, 2013 [facility] [address] [facility] [id number], [place] [address]- 2546 14 Jan, 2013 [facility] [address] [id number] [place] [id number] 30 Dec, 2012 [facility] [address] [facility] [id number], [place] [address]- 2540 16 Dec, 2012 [facility] [address] [id number] [place] [id number] Dec, [facility] [address] [id number] [place] [id number] Dec, [facility] [address] [id number] [place] [id number] Oct, [facility] [address] [facility] [id number], [place] [address]- 4296 Oct, [facility] [address] [facility] [id number], [place] [address]- 978[address] Oct, [facility] [address] [id number] [place] [id number] Oct, [facility] [address] [id number] [place] [id number] Sep, [facility] [address] [id number] [place] [id number] August, [facility] [address] [id number] [place] 7562618[address] August, [facility] [address] [id number] [place] [id number] August, [facility] [address] [id number] [place] [id number] Jul, [facility] [address] [facility] [id number], [place] [address]- 2546 Jul, [facility] [address] [id number] [place] 7470528[address] Jul, [facility] [address] [id number] [place] 875469876 Jun, [facility] [address]00565100[place], [place] [address]- 2547 Jun, [facility] [address] [id number] [place] [id number] Jun, [facility] [address] [id number] [place] 692321861 Jun, [facility] [address] [id number] [place] [id number] Jun, [facility] [address] [id number] [place] [id number] Jun, [facility] [address] [id number] [place] [id number] Jun, [facility] [address] [id number] [place] 957263981 Feb, [facility] [id number] [place] [address] 25302- 2546 Feb, [facility] [id number] [place] [address] [id number] Jan, [facility] [id number] [place] [address] [id number] Nov, [facility] [id number] [place] [address] [id number] Oct, [facility] [id number] [place] [address] [id number] Oct, [facility] [id number] [place] [address] [id number] Sep, [facility] [id number] [place] [address] 22105- 0131 Mar, [facility] [id number] [place] [address] 75001- 6429 Nov, IMMUNIZATIONS No Known Immunizations SOCIAL HISTORY Never Assessed REASON FOR VISIT depression follow up, states seroquel makes her to sleepy Jake PEREZ PLAN OF CARE Activity Details Follow Up 4 Weeks Reason:depression VITAL SIGNS Height 67 in 2017-09-22 Weight 287.8 lbs 2017-09-22 Temperature 97.5 degrees Fahrenheit 2017-09-22 Heart Rate 86 bpm 2017-09-22 Respiratory Rate 18 2017-09-22 BMI 45.07 kg/m2 2017-09-22 Blood pressure systolic 110 mmHg 2017-09-22 Blood pressure diastolic 72 mmHg 2017-09-22 MEDICATIONS Medication Instructions Dosage Frequency Start Date End Date Duration Status Methocarbamol 500 mg Orally 3 times a day 1 tablets 8h Oct, Active Albuterol Sulfate HFA cfc free 90 mcg/inh Inhalation every 4 hrs 2 puffs as needed 4h 15 Dec, 2014 Active Spiriva HandiHaler 18 MCG Inhalation Once a day 1 capsule 24h Active Symbicort 80-4.5 MCG/ACT Inhalation Twice a day 2 puffs 12h 18 Jul, 2015 Active Gabapentin 300 MG Orally 3 times a day 1 capsule 8h Active Zyrtec Allergy 10 mg Orally Once a day 1 tablet 24h Active Paroxetine HCl 40 mg Orally BID one tab 12h Active Wellbutrin SR 100 mg Orally Once a day 1 tablet 24h Sep, Active Pantoprazole Sodium 40 mg Orally [...] Surgical History cholecystectomy [address] [facility] for pneumonia 2012 Hospitalization History [facility] x 3 days for stomach flu 07/24[facility]15 [facility] for "blockage" 03/09/2016
--- OUTSIDE RECORDS SUMMARY | 2018-04-15 01:22 | XMS REPORT ---
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 48742731 Problem PTSD (post-traumatic stress disorder) F43.10 Active 58277009 Problem Back pain with left-sided radiculopathy M54.10 Active 347061963 Problem Kidney stone N20.0 Active 26018016 Problem Sciatica of left side M54.32 Active 18046930 Problem Hereditary and idiopathic neuropathy, 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 Active 13791334 Problem Chronic rhinitis J31.0 Active 28396602 Problem Essential hypertension I10 Active 94417958 Problem Female stress incontinence 625.6 Active 64179742 Problem Chronic airway obstruction, not elsewhere classified J44.9 Active 05154906 Problem Nondependent tobacco use disorder 305.1 Active 660636490 Problem Lung nodule R91.1 Active 338872550 ALLERGIES No Information ENCOUNTERS Encounter Location Date Diagnosis [facility] [address] [id number] [address] Jan, [facility] [address] [facility] [id number] [id number] Dec, [facility] [address] [id number][place] [id number] Nov, Dysthymia F34.1 [facility] [address] [id number] [address] Nov, PTSD (post-traumatic stress disorder) F43.10 and 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 [facility] [place] [place] [id number] [id number] Nov, BMI 45.0-49.9, adult Z68.42 ; Strain of lumbar region, subsequent encounter S39.012D ; PTSD (post-traumatic stress disorder) F43.10 and Dysthymia F34.1 [facility] [id number] [place] [address] [phone] Oct, [facility] [id number] [place] [address] [phone] Oct, Dysthymia F34.1 and PTSD (post-traumatic stress disorder) F43.10 [id number] [place] [address] [id number] Oct, BMI 45.0-49.9, adult Z68.42 ; Dysthymia F34.1 ; PTSD (post-traumatic stress disorder) F43.10 and Infective urethritis N34.2 [facility] [id number] [place] [address] [id number] Oct, Dysthymia F34.1 and PTSD (post-traumatic stress disorder) F43.10 [id number] [place] [address] [id number] Sep, Dysthymia F34.1 and PTSD (post-traumatic stress disorder) F43.10 [address] [place] [address] [id number] Sep, BMI 45.0-49.9, adult Z68.42 and Mood disorder F39 [address] [place] [address] [id number] Sep, [facility] GroupK [id number] [place] [address] [id number] Sep, Dysthymia F34.1 [facility] [id number] [place] [address] [id number] Sep, Mood disorder F39 [facility] [id number] [place] [address] [phone] August, Dysthymia F34.1 [facility] [id number] [place] [address] [id number] August, Dysthymia F34.1 ; Chronic airway obstruction, not elsewhere classified J44.9 ; Back pain with left-sided radiculopathy M54.10 and BMI 45.0-49.9, adult Z68.42 [facility] [id number] [place] [address] [id number] Jul, Urinary tract infection without hematuria, site unspecified N39.0 and Fatigue, unspecified type R53.83 [id number] [place] [address] [id number] Jul, Chronic airway obstruction, not elsewhere classified J44.9 [id number] [place] [address] [id number] Jul, BMI 45.0-49.9, adult Z68.42 and Infective urethritis N34.2 [id number] [place] [address] [id number] Jul, [facility] [id number] [place] [address] [id number] Jun, Back pain with left-sided radiculopathy M54.10 [facility] [id number] [place] [address] [id number] May, Chronic airway obstruction, not elsewhere classified J44.9 and Encounter for immunization Z23 [address] [place] [address] [id number] Apr, BMI 45.0-49.9, adult Z68.42 ; Back pain with left-sided radiculopathy M54.10 ; Chronic airway obstruction, not elsewhere classified J44.9 and Dysthymia F34.1 [id number] [place] [address] [id number] Mar, Sciatica of left side M54.32 ; Back pain with left-sided radiculopathy M54.10 and Hereditary and idiopathic neuropathy, 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 [id number] [place] [address] [id number] Mar, Flank pain R10.9 ; Urinary urgency R39.15 and Chronic airway obstruction, not elsewhere classified J44.9 [facility] [id number] [place] [address] [id number] Mar, Dysthymia F34.1 [facility] [address] [id number][place] [id number] Feb, [facility] [id number] [place] [address] Feb, [facility] [id number] [place] [address] [id number] Feb, Hematuria, unspecified type R31.9 ; Kidney stone N20.0 and BMI 40.0-44.9, adult Z68.41 [facility] [address] [id number], [place] [address] Feb, [facility] [address] [facility] [id number][place] [phone] Feb, [facility] [id number] [place] [address] [id number] Feb, [facility] [id number] [place] [address] [id number] Feb, Encounter for immunization Z23 ; Dysthymia F34.1 ; Acute nasopharyngitis J00 ; Chronic rhinitis J31.0 and Chronic airway obstruction, not elsewhere classified J44.9 [facility] [address]005[address] [address] Jan, Well woman exam Z01.419 ; Left breast lump N63.20 and BMI 40.0-44.9, adult Z68.41 [facility] [id number] [place] [address] [id number] Jan, Muscle cramps R25.2 [facility] [id number] [place] [address] [id number] Dec, Dysthymia F34.1 [facility] [id number] [place] [address] [id number] Dec, Muscle cramps R25.2 [facility] [place] [id number] [place] [address] [id number] Nov, Dysthymia F34.1 [facility] [place] [place] [id number] [place] [address] [id number] Oct, [facility] [id number] [place] [address] [id number] Oct, Chronic airway obstruction, not elsewhere classified J44.9 ; Moderate single current episode of major depressive disorder F32.1 ; Chronic rhinitis J31.0 and Muscle cramps R25.2 [facility] [id number] [place] [address] [id number] Sep, Acute nasopharyngitis J00 [facility] [id number] [place] [phone] Jun, Acute exacerbation of chronic obstructive pulmonary disease (COPD) J44.1 [facility] [id number] [place] [address] [id number] Jun, Acute nasopharyngitis J00 [facility] [id number] [place] [address] [id number] Jun, [facility] [id number] [place] [address] Apr, [facility] [id number] [place] [address] [id number] Mar, Acute nasopharyngitis J00 [facility] [id number] [place] [address] [id number] Mar, [facility] [id number] [place] [address] [id number] Mar, [facility] [id number] [place] [address] [id number] Feb, CAP (community acquired pneumonia) J18.9 and Chronic rhinitis J31.0 [facility] [id number] [place] [address] [phone] Feb, CAP (community acquired pneumonia) J18.9 [facility] [id number] [place] [address] [id number] Feb, CAP (community acquired pneumonia) J18.9 [facility] [id number], [place] [id number] Feb, [facility] [id number] [place] [address] [id number] Jan, Mood disorder F39 [facility] [address] [place] [address] Jan, [facility] [id number] [place] [address] [id number] Jan, Lung nodule R91.1 [facility] [id number] [place] [address] [id number] Jan, Lung nodule R91.1 [facility] [id number] [place] [address] [id number] Jan, Lung nodule R91.1 [facility] [id number] [place] [address] [id number] Jan, Lung nodule R91.1 [facility] [id number] [place] [address] [id number] Jan, [facility] [id number] [place] [address] [id number] Nov, Overactive bladder N32.81 ; Chronic airway obstruction, not elsewhere classified J44.9 and Essential hypertension I10 [id number] [place] [address] [id number] Oct, [address] [place] [address] [id number] Oct, Acute non-recurrent sinusitis, unspecified location J01.90 ; Cough R05 and Tobacco dependence F17.200 [address] [place] [address] [id number] Sep, Overactive bladder N32.81 and Chronic airway obstruction, not elsewhere classified J44.9 [address]00565100[place] [id number] August, Chronic airway obstruction, not elsewhere classified J44.9 ; Mood disorder F39 and Urinary frequency R35.0 [address] [id number] [phone] August, [address]00565100[place] [id number] Jul, Lung nodule R91.1 ; Chronic airway obstruction, not elsewhere classified J44.9 and Urinary tract infection without hematuria, site unspecified N39.0 [facility] [address]00565100[place] [id number] Jul, Lung nodule R91.1 [address] [place] [address] [id number] Jul, [address] [place] [address] [id number] Jul, Diarrhea R19.7 and Lung nodule R91.1 [address] [place] [address] [id number] Apr, Upper respiratory tract infection, unspecified type J06.9 and COPD exacerbation J44.1 [address] [place] [address] [id number] Mar, [address] [place] [address] [id number] Feb, Mood disorder F39 and Essential hypertension I10 [address] [place] [address] [id number] Jan, Essential hypertension I10 ; Mood disorder F39 ; Chronic airway obstruction, not elsewhere classified J44.9 and Chronic rhinitis J31.0 [address]00565100[place] [id number] Jan, [address] [id number][id number] Jan, [facility] [address] [facility] [id number][place] [phone] Jan, [facility] [address]00565100[place] [id number] Jan, [address]00565100[place], [place] [id number] Dec, Bronchitis [address]00565100[place], [place] [id number] Dec, [facility] [address] [id number] [id number] Sep, Rhinitis 472.0 [facility] [address] [address] Jul, [facility] [address]005[address] [address] Jul, [facility] [address] [id number][place] [id number] Jun, [facility] [address]005[address] [address] Jun, [facility] [address]005[address] [address] 2546 Jun, [facility] [id number], [place] [id number] May, [facility] [address] [address] May, [facility] [address] [id number], [place] [id number] Apr, [facility] [address]005[address] [address] Apr, [facility] [address] [id number], [place] [id number] Mar, [facility] [address] [id number] [address] Mar, [facility] [address] [id number], [place] [id number] Mar, [facility] [address] [address] 4[address] Mar, [facility] [address] [id number], [place] [id number] Mar, [facility] [place] [facility] [address] [id number] [address] 3[address] Mar, [facility] [address] [id number] [place] [id number] Mar, [facility] [place] [facility] [address] [facility] [id number] [place] [address]- 8[address] Mar, [facility] [address] [id number] [place] [id number] Feb, [facility] [place] [facility] [address] [facility] [id number] [place] [address] Feb, [facility] [address] [facility] [id number] [place] [id number] Feb, [facility] [place] [facility] [address] [facility] [id number] [place] [address]- 7[address] Feb, [facility] [address] [facility] [id number][place] [id number] Feb, [facility] [place] [facility] [address] [facility] [id number] [place] [address]- 24[address] Feb, [facility] [address] [facility] [id number][place] [id number] Jan, [facility] [place] [facility] [address] [facility] [id number] [place] [address]- 7[address] Jan, [facility] [address] [facility] [id number], [place] 446702269 Jan, [facility] [place] [facility] [address] [facility] [id number] [place] [address]- 10[address] Jan, [facility] [address] [facility] [id number], [place] [id number] Sep, [facility] [place] [facility] [address] [facility] [id number] [place] [address]- 8097 Sep, [facility] [place] [facility] [address] [facility] [id number] [place] [address]- 0734 Sep, [facility] [address] [facility] [id number], [place] 038266624 Sep, [facility] [place] [facility] [address] [facility] [id number] [place] [address]- 3[address] Sep, [facility] [place] [facility] [address] [facility] [id number] [place] [address]- 7914 Sep, [facility] [address] [facility] [id number], [place] [id number] Jul, [facility] [place] [facility] [address] [facility] [id number] [place] [address]- 8[address] Jul, [facility] [address] [facility] [id number] [place] [id number] Jun, [facility] [place] [facility] [address] [facility] [id number] [place] [address]- 0782 Jun, [facility] [address] [facility] [id number], [place] 649648981 Jun, [facility] [place] [facility] [address] [facility] [id number] [place] [address]- 1566 Jun, [facility] [address] [id number], [place] 537304432 Apr, [facility] [place] [facility] [address] [address]- 1156 Apr, [facility] [address] [facility] [id number], [place] 637292825 Mar, [facility] [facility] [address] [address]- 0066 Mar, [facility] [address] [facility] [id number], [place] [id number] Mar, [facility] [place] [facility] [address] [facility] [id number] [place] [address]- 9794 Mar, [facility] [address] [facility] [id number], [place] [id number] Feb, [facility] [place] [facility] [address] [facility] [id number] [place] [address]- 6976 Feb, [facility] [address] [facility] [id number], [place] [id number] 14 Jan, 2013 [facility] [place] [facility] [address] [facility] [id number] [place] [address]- 2546 Jan, [facility] [address] [id number] [place] [id number] 30 Dec, 2012 [facility] [address] [facility] [id number] [place] [address]- 48[address] 16 Dec, 2012 [facility] [address] [id number] [place] [id number] Dec, [facility] [address] [id number] [place] [id number] Dec, [facility] [address] [id number] [place] [id number] Oct, [facility] [address] [facility] [id number] [place] [address]- 2546 Oct, [facility] [address] [facility] [id number] [place] [address]- 2226 Oct, [facility] [address] [id number] [place] [id number] Oct, [facility] [address] [id number] [place] [id number] Sep, [facility] [address] [id number] [place] 9481135[address] August, [facility] [address] [id number] [place] [id number] August, [facility] [address] [id number] [place] [id number] August, [facility] [address] [id number] [place] [id number] Jul, [facility] [address] [id number] [place] [address]- 2541 Jul, [facility] [address] [id number] [place] [id number] Jul, [facility] [address] [id number] [place] 7999[address]236 Jun, [facility] [address] [facility] [id number] [place] [address]- 8[address] Jun, [facility] [address] [id number], [place] [id number] Jun, [facility] [address] [id number], [place] [id number] Jun, [facility] [address] [id number], [place] [id number] Jun, [facility] [address] [id number], [place] [id number] Jun, [facility] [id number] [place] [address] [id number] Jun, [facility] [address] [id number], [place] [id number] Feb, [facility] [id number] [place] [address] 18352- 2546 Feb, [facility] [id number] [place] [address] [id number] Jan, [facility] [id number] [place] [address] [id number] Nov, [facility] [id number] [place] [address] [id number] Oct, [facility] [id number] [place] [address] [id number] Oct, [facility] [id number] [place] [address] [id number] Sep, [id number] [place] [address] 89456- 2546 Mar, [facility] [id number] [place] [address] 23201- 2546 Nov, IMMUNIZATIONS No Known Immunizations SOCIAL HISTORY Never Assessed REASON FOR VISIT f/u PLAN OF CARE Activity Details Follow Up Next available Reason:depression VITAL SIGNS MEDICATIONS Unknown Medications RESULTS No Results PROCEDURES Procedure Date Ordered Result Body Site Psychotherapy, patient &/family, 30 minutes, established patient September 22, 2017 INSTRUCTIONS MEDICATIONS ADMINISTERED No Known Medications MEDICAL (GENERAL) HISTORY Type Description Date Medical History hypertension Medical History allergies Medical History chronic obstructive pulmonary disease (COPD) Medical History anxiety Medical History sciatica Medical History acid reflux Medical History Pneumococcal inj (2012) Medical History depression Surgical History cholecystectomy 1979 Hospitalization History [facility] for pneumonia 2012 Hospitalization History [facility] x 3 days for stomach flu 07/24/15 Hospitalization History [facility] for vomiting-given mag citrate for "blockage" 03/09/2016
--- OUTSIDE RECORDS SUMMARY | 2018-04-15 01:23 | XMS REPORT ---
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 53943865 Problem PTSD (post-traumatic stress disorder) F43.10 Active 71580051 Problem Back pain with left-sided radiculopathy M54.10 Active 712173508 Problem Kidney stone N20.0 Active 39737483 Problem Sciatica of left side M54.32 Active 19626057 Problem Hereditary and idiopathic neuropathy, 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 Active 47851414 Problem Chronic rhinitis J31.0 Active 34065892 Problem Essential hypertension I10 Active 36789832 Problem Female stress incontinence 625.6 Active 78026560 Problem Chronic airway obstruction, not elsewhere classified J44.9 Active 09985152 Problem Nondependent tobacco use disorder 305.1 Active 389797499 Problem Lung nodule R91.1 Active 794625051 ALLERGIES Substance Reaction Event Type Date Status Penicillin V Potassium rash Drug Allergy Sep, Active Aspirin rash Drug Allergy Sep, Active ENCOUNTERS Encounter Location Date Diagnosis [facility] [address] [facility] [id number] [address] Jan, [facility] [address] [facility] [id number][place] [id number] Dec, [facility] [address] [facility] [id number][place] [id number] Nov, Dysthymia F34.1 [facility] [address] [address] Nov, PTSD (post-traumatic stress disorder) F43.10 and 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 [facility] [address] [place] [address] [id number] Nov, BMI 45.0-49.9, adult Z68.42 ; Strain of lumbar region, subsequent encounter S39.012D ; PTSD (post-traumatic stress disorder) F43.10 and Dysthymia F34.1 [facility] [place] [id number] [place] [address] [id number] Oct, [facility] [place] [id number] [place] [address] [id number] Oct, Dysthymia F34.1 and PTSD (post-traumatic stress disorder) F43.10 [facility] [address] [place] [address] [id number] Oct, BMI 45.0-49.9, adult Z68.42 ; Dysthymia F34.1 ; PTSD (post-traumatic stress disorder) F43.10 and Infective urethritis N34.[address] [facility] [id number] [place] [address] [id number] Oct, Dysthymia F34.1 and PTSD (post-traumatic stress disorder) F43.10 [facility] [address] [id number] [id number] Sep, Dysthymia F34.1 and PTSD (post-traumatic stress disorder) F43.10 [facility] [address]00565[address] [id number] Sep, BMI 45.0-49.9, adult Z68.42 and Mood disorder F39 [facility] [address] [place] [address] [id number] Sep, [facility] [id number] [place] [address] [id number] Sep, Dysthymia F34.1 [facility] [address] [place] [address] [id number] Sep, Mood disorder F39 [place] [address] [facility] [id number] [id number] August, Dysthymia F34.1 [address]00565100[place] [id number] August, Dysthymia F34.1 ; Chronic airway obstruction, not elsewhere classified J44.9 ; Back pain with left-sided radiculopathy M54.10 and BMI 45.0-49.9, adult Z68.42 [address]00565100[place] [id number] Jul, Urinary tract infection without hematuria, site unspecified N39.0 and Fatigue, unspecified type R53.83 [address]00565100[place] [address] Jul, Chronic airway obstruction, not elsewhere classified J44.[address] [place] [address] [id number] Jul, BMI 45.0-49.9, adult Z68.42 and Infective urethritis N34.[address] [place] [address] [id number] Jul, [place] [id number] [place] [address] [id number] Jun, Back pain with left-sided radiculopathy M54.[address] [place] [address] [id number] May, Chronic airway obstruction, not elsewhere classified J44.9 and Encounter for immunization Z23 [address] [place] [address] [id number] Apr, BMI 45.0-49.9, adult Z68.42 ; Back pain with left-sided radiculopathy M54.10 ; Chronic airway obstruction, not elsewhere classified J44.9 and Dysthymia F34.[address] [id number][place] [id number] Mar, Sciatica of left side M54.32 ; Back pain with left-sided radiculopathy M54.10 and Hereditary and idiopathic neuropathy, 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 [facility] [id number] [place] [address] [id number] Mar, Flank pain R10.9 ; Urinary urgency R39.15 and Chronic airway obstruction, not elsewhere classified J44.9 [facility] [id number] [place] [address] [id number] Mar, Dysthymia F34.1 [facility] [address] [id number] [place] [address] [id number] Feb, [facility] [address] [place] [id number] [place] [address] Feb, [facility] [address] [place] [id number] [place] [address] [id number] Feb, Hematuria, unspecified type R31.9 ; Kidney stone N20.0 and BMI 40.0-44.9, adult Z68.41 [facility] [address] [place], [place] [id number] [address] Feb, [facility] [address] [place] [id number] [place] [address] [id number] Feb, [facility] [address] [place] [address] [id number] Feb, [facility] [address] [place] [id number] [place] [address] [id number] Feb, Encounter for immunization Z23 ; Dysthymia F34.1 ; Acute nasopharyngitis J00 ; Chronic rhinitis J31.0 and Chronic airway obstruction, not elsewhere classified J44.9 [facility] [address] [place] [address] Jan, Well woman exam Z01.419 ; Left breast lump N63.20 and BMI 40.0-44.9, adult Z68.41 [facility] [id number] [place] [address] [id number] Jan, Muscle cramps R25.2 [facility] [address] [place] [id number] [place] [address] [id number] Dec, Dysthymia F34.1 [facility] [address] [place] [id number] [place] [address] [id number] Dec, Muscle cramps R25.2 [facility] [address] [place] [id number] [place] [address] [id number] Nov, Dysthymia F34.1 [facility] [address] [place] [id number] [place] [address] [id number] Oct, [facility] [address] [id number] Oct, Chronic airway obstruction, not elsewhere classified J44.9 ; Moderate single current episode of major depressive disorder F32.1 ; Chronic rhinitis J31.0 and Muscle cramps R25.2 [facility] [address] [id number] Sep, Acute nasopharyngitis J00 [facility]ALK IN [facility] [address] [address] Jun, Acute exacerbation of chronic obstructive pulmonary disease (COPD) J44.1 [place] [address] [place] [id number] [place] [address] [id number] Jun, Acute nasopharyngitis J00 [facility] [address] [place] [id number] [place] [address] [id number] Jun, [facility] [address] [place] [place] [id number] [place] [address] Apr, [facility] [address] [place] [id number] [place] [address] [id number] Mar, Acute nasopharyngitis J00 [facility] [address] [place] [id number] [place] [address] [id number] Mar, [facility] [address] [id number] Mar, [facility] [address] [id number] Feb, CAP (community acquired pneumonia) J18.9 and Chronic rhinitis J31.0 [facility] [address] [place] [id number] [place] [address] [id number] Feb, CAP (community acquired pneumonia) J18.9 [facility] [id number] [place] [address] [id number] Feb, CAP (community acquired pneumonia) J18.9 [facility] [id number] [place] [address] [id number] Feb, [facility] [address] [place] [id number] [place] [address] [id number] Jan, Mood disorder F39 [facility] [address] [place] [id number] [place] [address] 789677- 27[address] Jan, [facility] [address] [place] [id number] [place] [address] [id number] Jan, Lung nodule R91.1 [facility] [address] [place] [id number] [place] [address] [id number] Jan, Lung nodule R91.1 [facility] [address] [place] [id number] [place] [address] [id number] Jan, Lung nodule R91.1 [facility] [address] [place] [id number] [place] [address] [id number] Jan, Lung nodule R91.1 [facility] [address] [place] [id number] [place] [address] [id number] Jan, [facility] [address] [place] [id number] [place] [address] [id number] Nov, Overactive bladder N32.81 ; Chronic airway obstruction, not elsewhere classified J44.9 and Essential hypertension I10 [facility] [address] [place] [id number] [place] [address] [id number] Oct, [facility] [address] [place] [id number] [place] [address] [id number] Oct, Acute non-recurrent sinusitis, unspecified location J01.90 ; Cough R05 and Tobacco dependence F17.200 [facility] [address] [place] [id number] [place] [address] [id number] Sep, Overactive bladder N32.81 and Chronic airway obstruction, not elsewhere classified J44.9 [place] [id number] [place] [address] [id number] August, Chronic airway obstruction, not elsewhere classified J44.9 ; Mood disorder F39 and Urinary frequency R35.0 [place] [id number] [place] [address] [id number] August, [place] [id number] [place] [address] [id number] Jul, Lung nodule R91.1 ; Chronic airway obstruction, not elsewhere classified J44.9 and Urinary tract infection without hematuria, site unspecified N39.0 [facility] [id number], [place] [id number] Jul, Lung nodule R91.1 [address] [place] [address] [id number] Jul, [place] [id number] [place] [address] [id number] Jul, Diarrhea R19.7 and Lung nodule R91.1 [place] [id number] [place] [address] [id number] Apr, Upper respiratory tract infection, unspecified type J06.9 and COPD exacerbation J44.1 [address] [place] [address] [id number] Mar, [place] [address] [place] [id number] [place] [address] [id number] Feb, Mood disorder F39 and Essential hypertension I10 [address]00565[address] [id number] Jan, Essential hypertension I10 ; Mood disorder F39 ; Chronic airway obstruction, not elsewhere classified J44.9 and Chronic rhinitis J31.0 [facility] [address] [facility] [id number], [place] [id number] Jan, [facility] [address] [id number] [place]IST[place] [id number] Jan, [facility] [address] [facility] [id number][place] [id number] Jan, [address] [id number], [place] [id number] Jan, [address] [id number], [place] [id number] Dec, Bronchitis [facility] [id number] [place]IST[place] [id number] Dec, [facility] [id number], [place] [id number] Sep, Rhinitis 472.0 [facility] [place] [facility] [address]00565100[place] [address] Jul, [facility] [place] [facility] [address]100[place] [address] Jul, [facility] [id number], [place] [id number] Jun, [facility] [place] [facility] [address]100[place] [address] Jun, [facility] [place] [facility] [address]00565100[place] [address] 6[address] Jun, [facility] [id number], [place] [id number] May, [facility] [place] [facility] [address]00565100[place] [address] May, [facility] [address] [place] [id number], [place] [id number] Apr, [facility] [place] [facility] [address] [place] [id number] [address]- 289[address] Apr, [facility] [address] [place] [id number], [place] [id number] Mar, [facility] [place] [facility] [address] [place] [id number] [address]- [address] Mar, [facility] [address] [place] [id number], [place] [id number] Mar, [facility] [place] [facility] [address] [place] [id number] [address] Mar, [facility] [address] [place] [id number], [place] [id number] Mar, [facility] [place] [facility] [address] [id number] [place] [address]- 8846 Mar, [facility] [address] [id number] [place] [id number] Mar, [facility] [place] [facility] [address] [id number] [place] [address]- 1746 Mar, [facility] [address] [id number] [place] [id number] Feb, [facility] [place] [facility] [address] [id number] [place] [address]- 57[address] Feb, [facility] [address] [id number] [place] [id number] Feb, [facility] [place] [facility] [address] [facility] [id number] [place] [address]- [address] Feb, [facility] [address] [id number], [place] [id number] Feb, [facility] [place] [facility] [address] [facility] [id number] [place] [address]- [address] Feb, [facility] [address] [id number], [place] [id number] Jan, [facility] [place] [facility] [address] [facility] [id number] [address]- [address] Jan, [facility] [address] [id number], [place] [id number] Jan, [facility] [place] [facility] [address] [facility] [place] [id number] [place] [address]- [address] Jan, [facility] [address] [id number] [place] [id number] Sep, [facility] [place] [facility] [address] [facility] [id number] [place] [address]- 3[address] Sep, [facility] [place] [facility] [address] [facility] [id number] [place] [address]- 8[address] Sep, [facility] [address] [id number] [place] [id number] Sep, [facility] [place] [facility] [address] [id number] [place] [address]- 95[address] Sep, [facility] [place] [facility] [address] [facility] [id number] [place] [address]- 57[address] Sep, [facility] [address] [facility] [id number] [place] [id number] Jul, [facility] [place] [facility] [address] [facility] [id number] [place] [address]- 3[address] Jul, [facility] [address] [id number] [place] [id number] Jun, [facility] [place] [facility] [address] [facility] [id number] [place] [address]- 3[address] Jun, [facility] [address] [id number] [place] [id number] Jun, [facility] [place] [facility] [address] [facility] [id number] [address]- [address] Jun, [facility] [address] [id number] [place] [id number] Apr, [facility] [place] [facility] [address] [facility] [id number] [address]- 16[address] Apr, [facility] [address] [id number] [place] 975374507 Mar, [facility] [place] [facility] [address] [facility] [id number] [place] [address]- 58[address] Mar, [facility] [address] [id number] [place] 197738304 Mar, [facility] [place] [facility] [address] [facility] [id number] [place] [address]- 00[address] Mar, [facility] [address] [facility] [id number] [place] [id number] Feb, [facility] [place] [facility] [address] [facility] [id number] [place] [address]- 3355 Feb, [facility] [address] [id number] [place] [id number] 14 Jan, 2013 [facility] [address] [facility] [id number] [address]- 25[address] 14 Jan, 2013 [facility] [address] [id number] [place] [id number] 30 Dec, 2012 [facility] [address] [facility] [id number] [address]- 2549 16 Dec, 2012 [facility] [address] [id number] [place] [id number] Dec, [facility] [address] [id number] [place] [id number] Dec, [facility] [address] [id number] [place] [id number] Oct, [facility] [address] [facility] [id number] [address]- 97[address] Oct, [facility] [address] [facility] [id number] [address]- 8040 Oct, [facility] [address] [id number] [place] [id number] Oct, [facility] [address] [id number] [place] [id number] Sep, [facility] [address] [id number] [place] [id number] August, [facility] [address] [id number] [place] 299999306 August, [facility] [address] [id number] [place] [id number] August, [facility] [address] [id number] [place] [id number] Jul, [facility] [address] [facility] [id number] [address]- 2546 Jul, [facility] [address] [id number] [place] [id number] Jul, [facility] [address] [id number] [place] [id number] Jun, [facility] [address] [address]- 25[address] Jun, [facility] [address] [id number] [place] [id number] Jun, [facility] [address] [id number] [place] [id number] Jun, [facility] [address] [id number] [place] 838502328 Jun, [facility] [address] [id number] [place] [id number] Jun, [facility] [address] [id number] [place] [id number] Jun, [facility] [address] [id number] [place] [id number] Feb, [facility] [id number] [place] [address]- 2546 Feb, [facility] [id number] [place] [address] [id number] Jan, [facility] [address] [id number] [place] [id number] Nov, [facility] [id number] [place] [address] [id number] Oct, [facility] [id number] [place] [address] [id number] Oct, [facility] [id number] [place] [address] [id number] Sep, [facility] [id number] [place] [address]- 2546 Mar, [facility] [id number] [place] [address] 21028- 7145 Nov, IMMUNIZATIONS No Known Immunizations SOCIAL HISTORY Never Assessed REASON FOR VISIT 2 week follow-up for Depression. feeling the same. [facility] PLAN OF CARE Activity Details Follow Up 2 Weeks Reason:depression VITAL SIGNS Height 67 in 2017-09-06 Weight 284.6 lbs 2017-09-06 Temperature 97.8 degrees Fahrenheit 2017-09-06 Heart Rate 84 bpm 2017-09-06 Respiratory Rate 20 2017-09-06 BMI 44.57 kg/m2 2017-09-06 Blood pressure systolic 126 mmHg 2017-09-06 Blood pressure diastolic 72 mmHg 2017-09-06 MEDICATIONS Medication Instructions Dosage Frequency Start Date End Date Duration Status Flonase 50 mcg/act Nasally Once a day 2 spray in each nostril 24h Apr, Active Zyrtec Allergy 10 mg Orally Once a day 1 tablet 24h Active Trazodone HCl 50 mg Orally Once a day .5-1 tablet at bedtime as needed 24h August, Active Pantoprazole Sodium 40 mg Orally Once a day 1 tablet 24h Active Symbicort 80-4.5 MCG/ACT Inhalation Twice a day 2 puffs 12h Jul, Active Gabapentin 300 MG Orally 3 times a day 1 capsule 8h Active Paroxetine HCl 40 MG Orally BID one tab 12h Active Spiriva HandiHaler 18 MCG Inhalation Once a day 1 capsule 24h Active Methocarbamol 500 mg Orally 3 times a day 1 tablets 8h Oct, Active Seroquel 25 MG Orally Once a day 1 tab qhs x 1 wk then 2 tab q hs 24h Sep, Active Albuterol Sulfate HFA cfc free 90 mcg/inh Inhalation every 4 hrs 2 puffs as needed 4h Dec, Active Lisinopril 10 mg 1 tablet Once a day Orally Active RESULTS No Results PROCEDURES No Known procedures INSTRUCTIONS MEDICATIONS ADMINISTERED No Known Medications MEDICAL (GENERAL) HISTORY Type Description Date Medical History hypertension Medical History allergies Medical History chronic obstructive pulmonary disease (COPD) Medical History anxiety Medical History sciatica Medical History acid reflux Medical History Pneumococcal inj (2012) Medical History depression Surgical History cholecystectomy 1979 Hospitalization History [facility] for pneumonia 2012 Hospitalization History [facility] x 3 days for stomach flu 07/24/15 Hospitalization History [facility] for [facility]-given mag citrate for "blockage" 03/09/2016
--- OUTSIDE RECORDS SUMMARY | 2018-04-15 01:23 | XMS REPORT ---
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 45979033 Problem PTSD (post-traumatic stress disorder) F43.10 Active 88902078 Problem Back pain with left-sided radiculopathy M54.10 Active 746650498 Problem Kidney stone N20.0 Active 30362459 Problem Sciatica of left side M54.32 Active 25765766 Problem Hereditary and idiopathic neuropathy, 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 Active 52798841 Problem Chronic rhinitis J31.0 Active 74763751 Problem Essential hypertension I10 Active 26644151 Problem Female stress incontinence 625.6 Active 27694892 Problem Chronic airway obstruction, not elsewhere classified J44.9 Active 47955776 Problem Nondependent tobacco use disorder 305.1 Active 848323226 Problem Lung nodule R91.1 Active 228677428 ALLERGIES No Information ENCOUNTERS Encounter Location Date Diagnosis [facility] [address] [id number] [address] Jan, [facility] [address] [facility] [id number] [id number] Dec, [address] [id number] Nov, Dysthymia F34.1 [facility] [address] [id number] [address] Nov, PTSD (post-traumatic stress disorder) F43.10 and 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 [facility] [place] [id number] [place] [address] [id number] Nov, BMI 45.0-49.9, adult Z68.42 ; Strain of lumbar region, subsequent encounter S39.012D ; PTSD (post-traumatic stress disorder) F43.10 and Dysthymia F34.1 [facility] [place] [address] [id number] [place] [address] [id number] Oct, [facility] [place] [id number] [place] [address] [id number] Oct, Dysthymia F34.1 and PTSD (post-traumatic stress disorder) F43.10 [facility] [place] [id number] [place] [address] [id number] Oct, BMI 45.0-49.9, adult Z68.42 ; Dysthymia F34.1 ; PTSD (post-traumatic stress disorder) F43.10 and Infective urethritis N34.2 [facility] [id number] [place] [address] [id number] Oct, Dysthymia F34.1 and PTSD (post-traumatic stress disorder) F43.10 [facility] [id number] [place] [address] [id number] Sep, Dysthymia F34.1 and PTSD (post-traumatic stress disorder) F43.10 [facility] [place] [id number] [place] [address] [id number] Sep, BMI 45.0-49.9, adult Z68.42 and Mood disorder F39 [facility] [place] [address] [facility] [id number] [place] [address] [id number] Sep, [facility] [id number] [place] [address] [id number] Sep, Dysthymia F34.1 [facility] [place] [address] [facility] [id number] [place] [address] [id number] Sep, Mood disorder F39 [facility] [id number] [place] [address] [id number] August, Dysthymia F34.1 [address] [id number] August, Dysthymia F34.1 ; Chronic airway obstruction, not elsewhere classified J44.9 ; Back pain with left-sided radiculopathy M54.10 and BMI 45.0-49.9, adult Z68.42 [address] [place] [address] [id number] Jul, Urinary tract infection without hematuria, site unspecified N39.0 and Fatigue, unspecified type R53.83 [address] [place] [address] [id number] Jul, Chronic airway obstruction, not elsewhere classified J44.9 [address] [place] [address] [id number] Jul, BMI 45.0-49.9, adult Z68.42 and Infective urethritis N34.[address] [place] [address] [id number] Jul, [address] [place] [address] [id number] Jun, Back pain with left-sided radiculopathy M54.10 [address] [place] [address] [id number] May, Chronic airway obstruction, not elsewhere classified J44.9 and Encounter for immunization Z23 [address] [place] [address] [id number] Apr, BMI 45.0-49.9, adult Z68.42 ; Back pain with left-sided radiculopathy M54.10 ; Chronic airway obstruction, not elsewhere classified J44.9 and Dysthymia F34.1 [address] [place] [address] [id number] Mar, Sciatica of left side M54.32 ; Back pain with left-sided radiculopathy M54.10 and Hereditary and idiopathic neuropathy, 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 [place] [id number] [id number] Mar, Flank pain R10.9 ; Urinary urgency R39.15 and Chronic airway obstruction, not elsewhere classified J44.9 [facility] [id number] [place] [address] [id number] Mar, Dysthymia F34.1 [facility] [address] [id number] [id number] Feb, [facility] [id number] [place] [address] Feb, [facility] [id number] [place] [address] [id number] Feb, Hematuria, unspecified type R31.9 ; Kidney stone N20.0 and BMI 40.0-44.9, adult Z68.41 [facility] [address] [place], [place] [id number] [place] [address] Feb, [facility] [address] [facility] [address] [id number] [id number] Feb, [facility] [id number] [place] [address] [id number] Feb, [facility] [id number] [place] [address] [id number] Feb, Dysthymia F34.1 ; Encounter for immunization Z23 ; Acute nasopharyngitis J00 ; Chronic rhinitis J31.0 and Chronic airway obstruction, not elsewhere classified J44.9 [facility] [address]005[address], [place] [address] Jan, Well woman exam Z01.419 ; Left breast lump N63.20 and BMI 40.0-44.9, adult Z68.41 [facility] [id number] [place] [address] [id number] Jan, Muscle cramps R25.2 [facility] [address] [place] [address] [id number] Dec, Dysthymia F34.1 [facility] [id number] [place] [address] [id number] Dec, Muscle cramps R25.2 [facility] [place] [id number] [place] [address] [id number] Nov, Dysthymia F34.1 [facility] [place] [id number] [place] [address] [id number] Oct, [facility] [id number] [place] [address] [id number] Oct, Chronic airway obstruction, not elsewhere classified J44.9 ; Moderate single current episode of major depressive disorder F32.1 ; Chronic rhinitis J31.0 and Muscle cramps R25.2 [facility] [id number] [place] [address] [id number] Sep, Acute nasopharyngitis J00 [facility] [address] [id number], [place] [address] Jun, Acute exacerbation of chronic obstructive pulmonary disease (COPD) J44.1 [facility] [id number] [place] [address] [id number] Jun, Acute nasopharyngitis J00 [facility] [id number] [place] [address] [id number] Jun, [facility] [id number] [place] [address] 292344- [address] Apr, [facility] [id number] [place] [address] [id number] Mar, Acute nasopharyngitis J00 [facility] [id number] [place] [address] [id number] Mar, [facility] [id number] [place] [address] [id number] Mar, [facility] [id number] [place] [address] [id number] Feb, CAP (community acquired pneumonia) J18.9 and Chronic rhinitis J31.0 [facility] [place] [id number] [place] [address] [id number] Feb, CAP (community acquired pneumonia) J18.9 [facility] [id number] [place] [address] [id number] Feb, CAP (community acquired pneumonia) J18.9 [facility] [id number] [place] [address] [id number] Feb, [facility] [id number] [place] [address] [id number] Jan, Mood disorder F39 [facility] [id number] [place] [address] [phone]- 2029 Jan, [facility] [id number] [place] [address] [id number] Jan, Lung nodule R91.1 [facility] [address] [id number] Jan, Lung nodule R91.1 [facility] [id number] [place] [address] [id number] Jan, Lung nodule R91.1 [facility] [id number] [place] [address] [id number] Jan, Lung nodule R91.1 [facility] [id number] [place] [address] [id number] Jan, [facility] [id number] [place] [address] [id number] Nov, Overactive bladder N32.81 ; Chronic airway obstruction, not elsewhere classified J44.9 and Essential hypertension I10 [facility] [id number] [place] [address] [id number] Oct, [place] [id number] [place] [address] [id number] Oct, Acute non-recurrent sinusitis, unspecified location J01.90 ; Cough R05 and Tobacco dependence F17.200 [place] [id number] [place] [address] [id number] Sep, Overactive bladder N32.81 and Chronic airway obstruction, not elsewhere classified J44.9 [address] [place] [address] [id number] August, Chronic airway obstruction, not elsewhere classified J44.9 ; Mood disorder F39 and Urinary frequency R35.0 [facility] [place] [id number], [place] [id number] August, [facility] [place] [id number] [place] [address] [id number] Jul, Lung nodule R91.1 ; Chronic airway obstruction, not elsewhere classified J44.9 and Urinary tract infection without hematuria, site unspecified N39.0 [facility] [place] [id number], [place] [id number] Jul, Lung nodule R91.1 [facility] [place] [id number], [place] [id number] Jul, [facility] [place] [id number] [place] [address] [id number] Jul, Diarrhea R19.7 and Lung nodule R91.1 [facility] [place] [id number] [place] [address] [id number] Apr, Upper respiratory tract infection, unspecified type J06.9 and COPD exacerbation J44.1 [address] [id number] Mar, [place] [id number] [place] [address] [id number] Feb, Mood disorder F39 and Essential hypertension I10 [place] [id number], [place] [id number] Jan, Essential hypertension I10 ; Mood disorder F39 ; Chronic airway obstruction, not elsewhere classified J44.9 and Chronic rhinitis J31.0 [place] [id number], [place] [id number] Jan, [employer] [facility] [address] [facility] [id number][place] [id number] Jan, [facility] [address] [facility] [id number][place] [id number] Jan, [facility] [place] [address] [facility] [id number], [place] [id number] Jan, [address]005[address]100[place] [id number] Dec, Bronchitis [facility] [place] [address] [facility] [id number][place] [id number] Dec, [facility] [id number] [place] [address] [id number] Sep, Rhinitis 472.0 [facility] [address]00565100[place], [place] [address] Jul, [facility] [address]005[address], [place] [address] Jul, [facility] [id number], [place] [id number] Jun, [facility] [id number] [place] [address] 7667 Jun, [facility] [address]00565100[place], [place] [address] Jun, [facility] [id number], [place] [id number] May, [facility] [address]00565100[place], [place] [address] May, [facility] [id number], [place] [id number] Apr, [facility] [address]00565[address], [place] [address] 8[address] Apr, [facility] [id number], [place] [id number] Mar, [facility] [address] [id number], [place] [address] Mar, [facility] [address] [id number], [place] [id number] Mar, [facility] [address]00565100[place], [place] [address] Mar, [facility] [address] [id number], [place] [id number] Mar, [facility] [address]00565100[place], [place] [address]- [address] Mar, [facility] [address] [id number] [place] [id number] Mar, [facility] [address] [facility] [id number], [place] [address]- [address] Mar, [facility] [address] [facility] [id number] [place] [id number] Feb, [facility] [address] [facility] [id number], [place] [address]- [address] Feb, [facility] [address] [facility] [id number] [place] [id number] Feb, [facility] [address] [facility] [id number], [place] [address]- [address] Feb, [facility] [address] [facility] [id number] [place] [id number] Feb, [facility] [address] [facility] [id number], [place] [address]- [address] Feb, [facility] [address] [facility] [id number], [place] [id number] Jan, [facility] [address] [id number], [place] [address] 40[address] Jan, [facility] [address] [facility] [id number], [place] [id number] Jan, [facility] [address] [facility] [id number], [place] [address]- 49[address] Jan, [facility] [address] [facility] [id number], [place] [id number] Sep, [facility] [address] [facility] [id number], [place] [address] Sep, [facility] [address] [facility] [id number], [place] [address]- [address]6 Sep, [facility] [address] [facility] [id number] [place] [id number] Sep, [facility] [address] [facility] [id number], [place] [address]- [address] Sep, [facility] [address] [facility] [id number], [place] [address]- 7[address] Sep, [facility] [address] [facility] [id number], [place] [id number] Jul, [facility] [address] [facility] [id number], [place] [address]- [address] Jul, [facility] [address] [facility] [id number], [place] [id number] Jun, [facility] [address] [facility] [id number], [place] [address]- 78[address] Jun, [facility] [address] [facility] [id number], [place] [id number] Jun, [facility] [address]00565100[place], [place] [address]- [address] Jun, [facility] [address] [facility] [id number], [place] [id number] Apr, [facility] [address] [facility] [id number], [place] [address]- 7[address] Apr, [facility] [address] [id number], [place] [id number] Mar, [facility] [address] [facility] [id number], [place] [address]- 5[address] Mar, [facility] [address] [facility] [id number], [place] [id number] Mar, [facility] [address] [facility] [id number], [place] [address]- 4[address] Mar, [facility] [address] [facility] [id number], [place] [id number] Feb, [facility] [address] [facility] [id number], [place] [address]- [address] Feb, [facility] [address] [facility] [id number], [place] [id number] 14 Jan, 2013 [facility] [address] [facility] [id number], [place] [address]- [address] 14 Jan, 2013 [facility] [address] [id number] [place] [id number] 30 Dec, 2012 [facility] [address] [facility] [id number], [place] [address]- 44[address] 16 Dec, 2012 [facility] [address] [id number] [place] [id number] Dec, [facility] [address] [id number] [place] [id number] Dec, [facility] [address] [id number] [place] [id number] Oct, [facility] [address] [facility] [id number], [place] [address]- 4726 Oct, [facility] [address]00565100[place], [place] [address]- 3[address] Oct, [facility] [address] [id number], [place] [id number] Oct, [facility] [address] [id number] [place] [id number] Sep, [facility] [address] [id number] [place] [id number] August, [facility] [address] [id number] [place] [id number] August, [facility] [address] [id number] [place] [id number] August, [facility] [address] [id number], [place] [id number] Jul, [facility] [address] [facility] [id number], [place] [address]- [address] Jul, [facility] [address] [id number], [place] [id number] Jul, [facility] [address] [id number] [place] [id number] Jun, [facility] [id number] [place] [address] 2546 Jun, [facility] [address] [id number], [place] [id number] Jun, [facility] [address] [id number], [place] [id number] Jun, [facility] [address] [id number], [place] 483163571 Jun, [facility] [address] [id number], [place] [id number] Jun, [facility] [id number] [place] [address] [id number] Jun, [facility] [id number] [place] [address] [id number] Feb, [facility] [id number] [place] [address] 81993- 2546 Feb, [facility] [id number] [place] [address] [id number] Jan, [facility] [id number] [place] [address] [id number] Nov, [facility] [id number] [place] [address] [id number] Oct, [facility] [id number] [place] [address] [id number] Oct, [facility] [id number] [place] [address] [id number] Sep, [facility] [id number] [place] [address] 30991- 2546 Mar, [facility] [id number] [place] [address] 61688- 2546 Nov, IMMUNIZATIONS No Known Immunizations SOCIAL HISTORY Never Assessed REASON FOR VISIT med side effect PLAN OF CARE VITAL SIGNS MEDICATIONS Unknown [...]
--- OUTSIDE RECORDS SUMMARY | 2018-04-15 01:24 | XMS REPORT ---
Author Author FERNANDO Castro 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 83160525 Problem PTSD (post-traumatic stress disorder) F43.10 Active 37491136 Problem Back pain with left-sided radiculopathy M54.10 Active 611701137 Problem Kidney stone N20.0 Active 14650440 Problem Sciatica of left side M54.32 Active 31081402 Problem Hereditary and idiopathic neuropathy, 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 Active 54443266 Problem Chronic rhinitis J31.0 Active 90495952 Problem Essential hypertension I10 Active 01628787 Problem Female stress incontinence 625.6 Active 21652738 Problem Chronic airway obstruction, not elsewhere classified J44.9 Active 65969283 Problem Nondependent tobacco use disorder 305.1 Active 758690303 Problem Lung nodule R91.1 Active 617307199 ALLERGIES No Information ENCOUNTERS Encounter Location Date Diagnosis [facility] [address] [facility] [id number] [address] [address] Jan, [facility] [address] [facility] [id number] [place] [phone] Dec, [facility] [address] [address] Nov, PTSD (post-traumatic stress disorder) F43.10 and 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 [facility] [address] [facility] [id number] [place] [id number] Nov, BMI 45.0-49.9, adult Z68.42 ; Strain of lumbar region, subsequent encounter S39.012D ; PTSD (post-traumatic stress disorder) F43.10 and Dysthymia F34.1 [facility] [place] [id number] [place] [address] [id number] Oct, [facility] [place] [address] [id number] [place] [address] [id number] Oct, Dysthymia F34.1 and PTSD (post-traumatic stress disorder) F43.10 [facility] [place] [address] [id number] [place] [address] [id number] Oct, BMI 45.0-49.9, adult Z68.42 ; Dysthymia F34.1 ; PTSD (post-traumatic stress disorder) F43.10 and Infective urethritis N34.2 [facility] [id number] [place] [address] [phone] Oct, Dysthymia F34.1 and PTSD (post-traumatic stress disorder) F43.10 [facility] [id number] [place] [address] [id number] Sep, Dysthymia F34.1 and PTSD (post-traumatic stress disorder) F43.10 [facility] [place] [id number] [place] [address] [id number] Sep, BMI 45.0-49.9, adult Z68.42 and Mood disorder F39 [facility] [place] [id number] [place] [address] [phone] Sep, [facility] [id number] [place] [address] [id number] Sep, Dysthymia F34.1 [facility] [place] [id number] [place] [address] [id number] Sep, Mood disorder F39 [facility] [id number] [place] [address] [id number] August, Dysthymia F34.1 [facility] [place] [id number] [place] [address] [id number] August, Dysthymia F34.1 ; Chronic airway obstruction, not elsewhere classified J44.9 ; Back pain with left-sided radiculopathy M54.10 and BMI 45.0-49.9, adult Z68.42 [address] [place] [address] [id number] Jul, Urinary tract infection without hematuria, site unspecified N39.0 and Fatigue, unspecified type R53.83 [place] [id number] [place] [address] [id number] Jul, Chronic airway obstruction, not elsewhere classified J44.9 [place] [id number] [place] [address] [id number] Jul, BMI 45.0-49.9, adult Z68.42 and Infective urethritis N34.2 [place] [id number] [place] [address] [id number] Jul, [place] [id number] [place] [address] [id number] Jun, Back pain with left-sided radiculopathy M54.[address] [place] [address] [id number] May, Chronic airway obstruction, not elsewhere classified J44.9 and Encounter for immunization Z23 [address] [place] [address] [id number] Apr, BMI 45.0-49.9, adult Z68.42 ; Back pain with left-sided radiculopathy M54.10 ; Chronic airway obstruction, not elsewhere classified J44.9 and Dysthymia F34.1 [address] [place] [address] [id number] Mar, Sciatica of left side M54.32 ; Back pain with left-sided radiculopathy M54.10 and Hereditary and idiopathic neuropathy, 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 [address] [place] [address] [id number] Mar, Flank pain R10.9 ; Urinary urgency R39.15 and Chronic airway obstruction, not elsewhere classified J44.9 [id number] [phone] Mar, Dysthymia F34.1 [facility] [place] [address] [facility] [address] [id number] [place] [phone] Feb, [facility] [address], [place] [address] Feb, [facility] [id number] [place] [address] [id number] Feb, Hematuria, unspecified type R31.9 ; Kidney stone N20.0 and BMI 40.0-44.9, adult Z68.41 [facility] [address] [place], [place] [id number] [place] [address] Feb, [facility] [place] [address] [facility] [address] [id number] [place] [phone] Feb, [facility] [id number] [place] [address] [id number] Feb, [facility] [address] [place] [id number] [place] [address] [id number] Feb, Encounter for immunization Z23 ; Dysthymia F34.1 ; Acute nasopharyngitis J00 ; Chronic rhinitis J31.0 and Chronic airway obstruction, not elsewhere classified J44.9 [facility] [address], [place] [address] Jan, Well woman exam Z01.419 ; Left breast lump N63.20 and BMI 40.0-44.9, adult Z68.41 [facility] [id number] [place] [address] [id number] Jan, Muscle cramps R25.2 [facility] [id number] [place] [address] [id number] Dec, Dysthymia F34.1 [facility] [id number] [place] [address] [id number] Dec, Muscle cramps R25.2 [facility] [address] [place] [id number] [place] [address] [id number] Nov, Dysthymia F34.1 [facility] [place] [id number] [place] [address] [id number] Oct, [facility] [place] [address] [place] [id number] [place] [address] [id number] Oct, Chronic airway obstruction, not elsewhere classified J44.9 ; Moderate single current episode of major depressive disorder F32.1 ; Chronic rhinitis J31.0 and Muscle cramps R25.2 [facility] [place] [address] [place] [id number] [place] [address] [phone] Sep, Acute nasopharyngitis J00 [facility] [address] [place] [id number] [place] [address]43 Jun, Acute exacerbation of chronic obstructive pulmonary disease (COPD) J44.1 [facility] [address] [place] [id number] [place] [address] [id number] Jun, Acute nasopharyngitis J00 [facility] [address] [place] [id number] [place] [address] [id number] Jun, [facility] [address] [place] [id number] [place] [address] Apr, [facility] [address] [place] [id number] [place] [address] [id number] Mar, Acute nasopharyngitis J00 [facility] [address] [place] [id number] [place] [address] [id number] Mar, [facility] [address] [place] [id number] [place] [address] [id number] Mar, [facility] [address] [place] [id number] [place] [address] [id number] Feb, CAP (community acquired pneumonia) J18.9 and Chronic rhinitis J31.0 [facility] [place] [address] [place] [id number] [place] [address] [id number] Feb, CAP (community acquired pneumonia) J18.9 [facility] [place] [address] [place] [id number] [place] [address] [id number] Feb, CAP (community acquired pneumonia) J18.9 [facility] [place] [address] [place] [id number] [place] [address] [id number] Feb, [facility] [id number] [place] [phone] Jan, Mood disorder F39 [facility] [address] [address] Jan, [facility] [id number] [place] [phone] Jan, Lung nodule R91.1 [facility] [place] [address] [place] [id number] [place] [address] [id number] Jan, Lung nodule R91.1 [facility] [place] [id number] [place] [address] [id number] Jan, Lung nodule R91.1 [facility] [place] [id number] [place] [address] [id number] Jan, Lung nodule R91.1 [facility] [id number] [place] [address] [id number] Jan, [facility] [address] [place] [id number] [place] [address] [id number] Nov, Overactive bladder N32.81 ; Chronic airway obstruction, not elsewhere classified J44.9 and Essential hypertension I10 [facility] [id number] [place] [address] [id number] Oct, [facility] [address] [place] [id number] [place] [address] [id number] Oct, Acute non-recurrent sinusitis, unspecified location J01.90 ; Cough R05 and Tobacco dependence F17.200 [facility] [id number] [place] [address] [id number] Sep, Overactive bladder N32.81 and Chronic airway obstruction, not elsewhere classified J44.9 [place] [id number] [place] [address] [id number] August, Chronic airway obstruction, not elsewhere classified J44.9 ; Mood disorder F39 and Urinary frequency R35.0 [facility] [address] [place] [address] [id number] August, [facility] [address] [place] [id number] [place] [address] [id number] Jul, Lung nodule R91.1 ; Chronic airway obstruction, not elsewhere classified J44.9 and Urinary tract infection without hematuria, site unspecified N39.0 [address] [place] [address] [id number] Jul, Lung nodule R91.[address] [place] [address] [id number] Jul, [place] [id number] [place] [address] [id number] Jul, Diarrhea R19.7 and Lung nodule R91.[address] [place] [address] [id number] Apr, Upper respiratory tract infection, unspecified type J06.9 and COPD exacerbation J44.[address] [place] [address] [id number] Mar, [place] [id number] [place] [address] [id number] Feb, Mood disorder F39 and Essential hypertension I10 [address] [place] [address] [id number] Jan, Essential hypertension I10 ; Mood disorder F39 ; Chronic airway obstruction, not elsewhere classified J44.9 and Chronic rhinitis J31.0 [address] [id number] Jan, [facility] [address] [facility] [id number][place] [phone] Jan, [facility] [place] [id number] [facility] [id number] [place] [phone] Jan, [address] [place] [address] [id number] Jan, [address] [place] [address] [id number] Dec, Bronchitis 490 [facility] [id number][place] [phone] Dec, [facility] [place] [id number] [place] [address] [id number] Sep, Rhinitis 472.0 [facility] [place] [facility] [address], [place] [address] Jul, [facility] [place] [facility] [address], [place] [address] Jul, [facility] [id number] [place] [id number] Jun, [facility] [place] [facility] [address] [place] [id number] [place] [address] 7[address]- 4889 Jun, [facility] [place] [facility] [address], [place] [address] Jun, [facility] [id number] [place] [address] [id number] May, [facility] [place] [facility] [address], [place] [address] May, [facility] [id number] [place] [id number] Apr, [facility] [place] [facility] [address], [place] [address]- 7[address] Apr, [facility] [id number] [place] [id number] Mar, [facility] [place] [facility] [address] [place] [id number], [place] [address]- 00[address] Mar, [facility] [id number] [place] [id number] Mar, [facility] [place] [facility] [address], [place] [address]- 92[address] Mar, [facility] [id number] [place] [id number] Mar, [facility] [place] [facility] [address], [place] [address]- 25[address] Mar, [facility] [address] [place] [id number] [place] [id number] Mar, [facility] [place] [facility] [address] [facility] [id number], [place] [address] Mar, [facility] [address] [facility] [id number] [place] [id number] Feb, [facility] [place] [facility] [address] [facility] [id number] [place] [address]- 8258 Feb, [facility] [address] [facility] [id number] [place] [id number] Feb, [facility] [place] [facility] [address] [facility] [id number] [place] [address]- 4878 Feb, [facility] [address] [facility] [id number] [place] [id number] Feb, [facility] [place] [facility] [address] [place] [address]- 7[address] Feb, [facility] [address] [place] [id number] [place] [id number] Jan, [facility] [place] [facility] [address]005[address], [place] [address]- 95[address] Jan, [facility] [address] [facility] [id number] [place] [id number] Jan, [facility] [place] [facility] [address], [place] [address]- 45[address] Jan, [facility] [address] [place] [id number] [place] [id number] Sep, [facility] [place] [facility] [address] [facility] [id number], [place] [address]- 6818 Sep, [facility] [place] [facility] [address] [facility] [id number], [place] [address]- 7[address] Sep, [facility] [address] [facility] [id number] [place] [id number] Sep, [facility] [place] [facility] [address] [facility] [id number], [place]- [address]37 Sep, [facility] [place] [facility] [address], [place] [address]- 3509 Sep, [facility] [address] [id number] [place] [id number] Jul, [facility] [address] [facility] [id number], [place] [address]- [address] Jul, [facility] [address] [facility] [id number] [place] [id number] Jun, [facility] [place] [facility] [address] [facility] [id number], [place] [address]- 2546 Jun, [facility] [address] [facility] [id number] [place] [id number] Jun, [facility] [place] [facility] [address] [facility] [id number], [place] [address]- 25[address] Jun, [facility] [address] [facility] [id number] [place] [id number] Apr, [facility] [address], [place] [address] 2546 Apr, [facility] [address] [facility] [id number] [place] [id number] Mar, [facility] [address], [place] [address]- 4[address] Mar, [facility] [address] [facility] [id number] [place] [id number] Mar, [facility] [address] [place] [id number], [place] [address]- 2546 Mar, [facility] [address] [facility] [id number] [place] [id number] Feb, [facility] [place] [facility] [address] [facility] [id number], [place] [address]- 2546 Feb, [facility] [address] [facility] [id number] [place] [id number] Jan, [facility] [place] [facility] [address] [facility] [id number], [place] [address]- 2546 Jan, [facility] [address] [facility] [id number] [place] [id number] Dec, [facility] [address] [facility] [id number] [place] [address]- 34[address] 16 Dec, 2012 [facility] [address] [id number] [place] [id number] Dec, [facility] [address] [id number] [place] [id number] Dec, [facility] [address] [id number] [place] [id number] Oct, [facility] [address] [facility] [id number] [place] [address]- [address] Oct, [facility] [address] [facility] [id number] [place] [address]- 9023 Oct, [facility] [address] [id number] [place] [id number] Oct, [facility] [address] [id number] [place] [id number] Sep, [facility] [address] [id number] [place] [id number] August, [facility] [address] [id number] [place] [id number] August, [facility] [address] [id number] [place] [id number] August, [facility] [address] [id number] [place] [id number] Jul, [facility] [address] [facility] [id number], [place] [address]- 2546 Jul, [facility] [address] [id number] [place] [id number] Jul, [facility] [address] [id number] [place] [id number] Jun, [facility] [place] [facility] [address] [facility] [id number] [place] [address]- 2635 Jun, [facility] [address] [id number] [place] [id number] Jun, [facility] [address] [id number] [place] [id number] Jun, [facility] [id number] [place] [id number] Jun, [facility] [id number] [place] [id number] Jun, [facility] [id number] [place] [id number] Jun, [facility] [id number] [place] [address] [id number] Feb, [facility] [id number] [place] [address] 98268- 2546 Feb, [facility] [id number] [place] [address] [id number] Jan, [facility] [id number] [place] [address] [id number] Nov, [facility] [id number] [place] [address] [id number] Oct, [facility] [id number] [place] [address] [id number] Oct, [facility] [id number] [place] [address] [id number] Sep, [facility] [id number] [place] [address] 44772- 2546 Mar, [facility] [id number] [place] [address] 34373- 2546 Nov, IMMUNIZATIONS No Known Immunizations SOCIAL HISTORY Never Assessed REASON FOR VISIT intake PLAN OF CARE Activity Details Follow Up 3-4 weeks Reason:dysthymia VITAL SIGNS MEDICATIONS Unknown Medications RESULTS No Results PROCEDURES Procedure Date Ordered Result Body Site Psychotherapy, patient &/family, 30 minutes, established patient August 23, 2017 INSTRUCTIONS MEDICATIONS ADMINISTERED No Known Medications MEDICAL (GENERAL) HISTORY Type Description Date Medical History hypertension Medical History allergies Medical History chronic obstructive pulmonary disease (COPD) Medical History anxiety Medical History sciatica Medical History acid reflux Medical History Pneumococcal inj (2012) Medical History depression Surgical History cholecystectomy 1979 Hospitalization History [facility] for pneumonia 2012 Hospitalization History [facility] x 3 days for stomach flu 07/24/15 Hospitalization History [facility] for [facility]-given mag citrate for "blockage" 03/09/2016
--- OUTSIDE RECORDS SUMMARY | 2018-04-15 01:24 | XMS REPORT ---
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 55615398 Problem PTSD (post-traumatic stress disorder) F43.10 Active 70994396 Problem Back pain with left-sided radiculopathy M54.10 Active 450986055 Problem Kidney stone N20.0 Active 15384537 Problem Sciatica of left side M54.32 Active 83380815 Problem Hereditary and idiopathic neuropathy, 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 Active 62716847 Problem Chronic rhinitis J31.0 Active 29808517 Problem Essential hypertension I10 Active 13218455 Problem Female stress incontinence 625.6 Active 64751170 Problem Chronic airway obstruction, not elsewhere classified J44.9 Active 15893243 Problem Nondependent tobacco use disorder 305.1 Active 090465601 Problem Lung nodule R91.1 Active 105334498 ALLERGIES No Information ENCOUNTERS Encounter Location Date Diagnosis [facility] [address] [id number] [address] Jan, [facility] [address] 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 [facility] [place] [id number], [place] [id number] Nov, BMI 45.0-49.9, adult Z68.42 ; Strain of lumbar region, subsequent encounter S39.012D ; PTSD (post-traumatic stress disorder) F43.10 and Dysthymia F34.1 [facility] [id number] [place] [address] [id number] Oct, [facility] [id number] [place] [address] [id number] Oct, Dysthymia F34.1 and PTSD (post-traumatic stress disorder) F43.10 [id number] [place] [address] [id number] Oct, BMI 45.0-49.9, adult Z68.42 ; Dysthymia F34.1 ; PTSD (post-traumatic stress disorder) F43.10 and Infective urethritis N34.2 [facility] [id number] [place] [address] [id number] Oct, Dysthymia F34.1 and PTSD (post-traumatic stress disorder) F43.10 [facility] [id number] [place] [address] [id number] Sep, Dysthymia F34.1 and PTSD (post-traumatic stress disorder) F43.10 [address] [place] [address] [id number] Sep, BMI 45.0-49.9, adult Z68.42 and Mood disorder F39 [address] [place] [address] [id number] Sep, [facility] [id number] [place] [address] [id number] Sep, Dysthymia F34.1 [facility] [address] [place] [address] [phone] Sep, Mood disorder F39 [facility] [id number] [place] [address] [id number] August, Dysthymia F34.1 [facility] [id number] [place] [address] [id number] August, Dysthymia F34.1 ; Chronic airway obstruction, not elsewhere classified J44.9 ; Back pain with left-sided radiculopathy M54.10 and BMI 45.0-49.9, adult Z68.42 [facility] [id number] [place] [address] [id number] Jul, Urinary tract infection without hematuria, site unspecified N39.0 and Fatigue, unspecified type R53.83 [id number] [place] [address] [id number] Jul, Chronic airway obstruction, not elsewhere classified J44.9 [id number] [place] [address] [id number] Jul, BMI 45.0-49.9, adult Z68.42 and Infective urethritis N34.2 [id number] [place] [address] [id number] Jul, [facility] [id number] [place] [address] [id number] Jun, Back pain with left-sided radiculopathy M54.10 [facility] [id number] [place] [address] [id number] May, Chronic airway obstruction, not elsewhere classified J44.9 and Encounter for immunization Z23 [address] [place] [address] [id number] Apr, BMI 45.0-49.9, adult Z68.42 ; Back pain with left-sided radiculopathy M54.10 ; Chronic airway obstruction, not elsewhere classified J44.9 and Dysthymia F34.1 [id number] [place] [address] [id number] Mar, Sciatica of left side M54.32 ; Back pain with left-sided radiculopathy M54.10 and Hereditary and idiopathic neuropathy, 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 [id number] [place] [address] [id number] Mar, Flank pain R10.9 ; Urinary urgency R39.15 and Chronic airway obstruction, not elsewhere classified J44.9 [facility] [id number] [place] [address] [id number] Mar, Dysthymia F34.1 [facility] [address] [id number][place] [id number] Feb, [facility] [id number] [place] [address] Feb, [facility] [id number] [place] [address] [id number] Feb, Hematuria, unspecified type R31.9 ; Kidney stone N20.0 and BMI 40.0-44.9, adult Z68.41 [facility] [address] [place], [id number], [place] [address] Feb, [facility] [address] [facility] [address] [id number][place] [id number] Feb, [facility] [id number] [place] [address] [id number] Feb, [facility] [id number] [place] [address] [id number] Feb, Encounter for immunization Z23 ; Dysthymia F34.1 ; Acute nasopharyngitis J00 ; Chronic rhinitis J31.0 and Chronic airway obstruction, not elsewhere classified J44.9 [facility] [address]00565100[place], [place] [address] Jan, Well woman exam Z01.419 ; Left breast lump N63.20 and BMI 40.0-44.9, adult Z68.41 [facility] [id number] [place] [address] [id number] Jan, Muscle cramps R25.2 [facility] [id number] [place] [address] [id number] Dec, Dysthymia F34.1 [facility] [id number] [place] [address] [id number] Dec, Muscle cramps R25.2 [facility] [place] [id number] [place] [address] [id number] Nov, Dysthymia F34.1 [facility] [place] [id number] [place] [address] [id number] Oct, [facility] [id number] [place] [address] [id number] Oct, Chronic airway obstruction, not elsewhere classified J44.9 ; Moderate single current episode of major depressive disorder F32.1 ; Chronic rhinitis J31.0 and Muscle cramps R25.2 [facility] [id number] [place] [address] [id number] Sep, Acute nasopharyngitis J00 [facility] [id number] [place] [address] [phone] Jun, Acute exacerbation of chronic obstructive pulmonary disease (COPD) J44.1 [facility] [id number] [place] [address] [id number] Jun, Acute nasopharyngitis J00 [facility] [id number] [place] [address] [id number] Jun, [facility] [id number] [place] [address] Apr, [facility] [id number] [place] [address] [id number] Mar, Acute nasopharyngitis J00 [facility] [id number] [place] [address] [id number] Mar, [facility] [id number] [place] [address] [id number] Mar, [facility] [id number] [place] [address] [id number] Feb, CAP (community acquired pneumonia) J18.9 and Chronic rhinitis J31.0 [facility] [place] [id number] [place] [address] [id number] Feb, CAP (community acquired pneumonia) J18.9 [facility] [place] [id number] [place] [address] [id number] Feb, CAP (community acquired pneumonia) J18.9 [facility] [id number], [place] [id number] Feb, [facility] [id number] [place] [address] [id number] Jan, Mood disorder F39 [facility] [address]005[address] [address] Jan, [facility] [id number] [place] [address] [id number] Jan, Lung nodule R91.1 [facility] [id number] [place] [address] [id number] Jan, Lung nodule R91.1 [facility] [id number] [place] [address] [id number] Jan, Lung nodule R91.1 [facility] [id number] [place] [address] [id number] Jan, Lung nodule R91.1 [facility] [id number] [place] [address] [id number] Jan, [facility] [id number] [place] [address] [id number] Nov, Overactive bladder N32.81 ; Chronic airway obstruction, not elsewhere classified J44.9 and Essential hypertension I10 [id number] [place] [address] [id number] Oct, [id number] [place] [address] [id number] Oct, Acute non-recurrent sinusitis, unspecified location J01.90 ; Cough R05 and Tobacco dependence F17.200 [id number] [place] [address] [id number] Sep, Overactive bladder N32.81 and Chronic airway obstruction, not elsewhere classified J44.9 [address], [place] [id number] August, Chronic airway obstruction, not elsewhere classified J44.9 ; Mood disorder F39 and Urinary frequency R35.0 [id number] [id number] August, [address] [id number] Jul, Lung nodule R91.1 ; Chronic airway obstruction, not elsewhere classified J44.9 and Urinary tract infection without hematuria, site unspecified N39.0 [facility] [address] [id number] Jul, Lung nodule R91.1 [address] [place] [address] [id number] Jul, [id number] [place] [address] [id number] Jul, Diarrhea R19.7 and Lung nodule R91.1 [address] [place] [address] [id number] Apr, Upper respiratory tract infection, unspecified type J06.9 and COPD exacerbation J44.1 [address] [place] [address] [id number] Mar, [address] [place] [address] [id number] Feb, Mood disorder F39 and Essential hypertension I10 [id number] [place] [address] [id number] Jan, Essential hypertension I10 ; Mood disorder F39 ; Chronic airway obstruction, not elsewhere classified J44.9 and Chronic rhinitis J31.0 [address] [id number] Jan, [address] [id number] [id number] Jan, [facility] [id number] [facility] [id number] [phone] Jan, [facility] [address] [id number] Jan, [address], [place] [id number] Dec, Bronchitis [address]00565100[place] [id number] Dec, [facility] [address] [id number] [id number] Sep, Rhinitis 472.0 [facility] [place] [facility] [address]00565100[place], [place] [address] Jul, [facility] [place] [facility] [address]00565100[place], [place] [address] Jul, [facility] [address] [id number] [id number] Jun, [facility] [place] [facility] [address]005[address], [place] [address] 3[address] Jun, [facility] [place] [facility] [address]005[address]100[place], [place] [address] 2546 Jun, [facility] [id number], [place] [id number] May, [facility] [place] [facility] [address]005[address], [place] [address] May, [facility] [address] [id number], [place] [id number] Apr, [facility] [place] [facility] [address]00565100[place], [place] [address] 0[address] Apr, [facility] [address] [id number], [place] [id number] Mar, [facility] [place] [facility] [address] [id number], [place] [address] 7[address] Mar, [facility] [address] [id number], [place] [id number] Mar, [facility] [place] [facility] [address]005[address], [place] [address] 9[address] Mar, [facility] [address] [id number], [place] [id number] Mar, [facility] [place] [facility] [address] [id number], [place] [address] Mar, [facility] [address] [id number] [place] [id number] Mar, [facility] [place] [facility] [address] [facility] [id number], [place] [address]- [address] Mar, [facility] [address] [id number] [place] [id number] Feb, [facility] [place] [facility] [address] [facility] [id number], [place] [address] 8[address] Feb, [facility] [address] [facility] [id number] [place] [id number] Feb, [facility] [place] [facility] [address] [facility] [id number], [place] [address]- 3267 Feb, [facility] [address] [facility] [id number], [place] [id number] Feb, [facility] [place] [facility] [address] [facility] [id number], [place] [address]- 16[address] Feb, [facility] [address] [facility] [id number], [place] [id number] Jan, [facility] [place] [facility] [address] [facility] [id number], [place] [address]- 2504 Jan, [facility] [address] [facility] [id number], [place] [id number] Jan, [facility] [place] [facility] [address] [facility] [id number], [place] [address]- 7[address] Jan, [facility] [address] [facility] [id number], [place] [id number] Sep, [facility] [place] [facility] [address] [facility] [id number], [place] [address]- 1581 Sep, [facility] [place] [facility] [address] [facility] [id number], [place] [address]- 4277 Sep, [facility] [address] [facility] [id number], [place] [id number] Sep, [facility] [place] [facility] [address] [facility] [id number], [place] [address]- 3256 Sep, [facility] [place] [facility] [address] [facility] [id number], [place] [address]- 96[address] Sep, [facility] [address] [facility] [id number], [place] [id number] Jul, [facility] [place] [facility] [address] [facility] [id number], [place] [address]- 7[address] Jul, [facility] [address] [facility] [id number] [place] [id number] Jun, [facility] [place] [facility] [address] [facility] [id number], [place] [address]- 6692 Jun, [facility] [address] [facility] [id number], [place] [id number] Jun, [facility] [place] [facility] [address] [facility] [id number], [place] [address]- 1046 Jun, [facility] [address] [id number], [place] 224076814 Apr, [facility] [place] [facility] [address]00565100[place], [place] [address]- 9[address] Apr, [facility] [address] [facility] [id number], [place] [id number] Mar, [facility] [place] [facility] [address]00565100[place], [place] [address]- 2266 Mar, [facility] [address] [facility] [id number], [place] [id number] Mar, [facility] [place] [facility] [address] [facility] [id number], [place] [address]- 4509 Mar, [facility] [address] [facility] [id number], [place] [id number] Feb, [facility] [place] [facility] [address] [facility] [id number], [place] [address]- 2716 Feb, [facility] [address] [facility] [id number], [place] [id number] 14 Jan, 2013 [facility] [place] [facility] [address] [facility] [id number], [place] [address]- 2546 Jan, [facility] [address] [id number] [place] [id number] 30 Dec, 2012 [facility] [address] [facility] [id number], [place] [address]- 5679 16 Dec, 2012 [facility] [address] [id number] [place] [id number] Dec, [facility] [address] [id number] [place] 905831317 Dec, [facility] [address] [id number] [place] [id number] Oct, [facility] [address] [facility] [id number] [place] [address]- 2546 Oct, [facility] [address] [facility] [id number], [place] [address]- 1815 Oct, [facility] [address] [id number] [place] [id number] Oct, [facility] [address] [id number] [place] [id number] Sep, [facility] [address] [id number] [place] [id number] August, [facility] [address] [id number] [place] [id number] August, [facility] [address] [id number] [place] [id number] August, [facility] [address] [id number] [place] [id number] Jul, [facility] [address] [id number], [place] [address]- 2543 Jul, [facility] [address] [id number] [place] [id number] Jul, [facility] [address] [id number] [place] [id number] Jun, [facility] [address] [facility] [id number], [place] [address]- 9817 Jun, [facility] [address] [id number], [place] 384584585 Jun, [facility] [address] [id number], [place] [id number] Jun, [facility] [address] [id number], [place] 399551354 Jun, [facility] [address] [id number], [place] [id number] Jun, [facility] [id number] [place] [address] [id number] Jun, [facility] [address] [id number], [place] [id number] Feb, [facility] [id number] [place] [address] 60[address]- 2546 Feb, [facility] [id number] [place] [address] [id number] Jan, [facility] [id number] [place] [address] [id number] Nov, [facility] [id number] [place] [address] [id number] Oct, [facility] [id number] [place] [address] [id number] Oct, [facility] [id number] [place] [address] [id number] Sep, [id number] [place] [address]- 2546 Mar, [facility] [id number] [place] [address] 08878- 2546 Nov, IMMUNIZATIONS No Known Immunizations SOCIAL HISTORY Never Assessed REASON FOR VISIT f/u PLAN OF CARE Activity Details Follow Up 3-4 weeks Reason: VITAL SIGNS MEDICATIONS Unknown Medications RESULTS No Results PROCEDURES Procedure Date Ordered Result Body Site Psychotherapy, patient &/family, 30 minutes, established patient September 06, 2017 INSTRUCTIONS MEDICATIONS ADMINISTERED No Known Medications MEDICAL (GENERAL) HISTORY Type Description Date Medical History hypertension Medical History allergies Medical History chronic obstructive pulmonary disease (COPD) Medical History anxiety Medical History sciatica Medical History acid reflux Medical History Pneumococcal inj (2012) Medical History depression Surgical History cholecystectomy 1980 Hospitalization History [facility] for pneumonia 2012 Hospitalization History [facility] x 3 days for stomach flu 07/24/15 Hospitalization History [facility] for [facility]-given mag citrate for "blockage" 03/09/2016
--- OUTSIDE RECORDS SUMMARY | 2018-04-15 01:24 | XMS REPORT ---
Author Author KATERINA SMITH [facility] Address [address] [place] [address] Care Team Providers Care Classification Control Clerk Name Role Phone KATERINA SMITH Unavailable PROBLEMS Type Condition ICD9-CM Code THQ69-WY Code Onset Dates Condition Status SNOMED Code Problem CAP (community acquired pneumonia) J18.9 Active 409220407 Problem Moderate single current episode of major depressive disorder F32.1 Active 56841367 Problem Acute exacerbation of chronic obstructive pulmonary disease (COPD) J44.1 Active 115475361 Problem PTSD (post-traumatic stress disorder) F43.10 Active 00497676 Problem Hereditary and idiopathic neuropathy, 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 Active 71655622 Problem Kidney stone N20.0 Active 93074857 Problem Dysthymia F34.1 Active 30085941 Problem Back pain with left-sided radiculopathy M54.10 Active 747273838 Problem Sciatica of left side M54.32 Active 78450408 Problem Female stress incontinence 625.6 Active 44522864 Problem Nondependent tobacco use disorder 305.1 Active 239166109 Problem Essential hypertension I10 Active 23600751 Problem Chronic airway obstruction, not elsewhere classified J44.9 Active 58588330 Problem Chronic rhinitis J31.0 Active 56597087 Problem Lung nodule R91.1 Active 517722330 Problem Mood disorder F39 Active 16312925 Problem Overactive bladder N32.81 Active 379834272 ALLERGIES Substance Reaction Event Type Date Status Penicillin V Potassium rash Drug Allergy August, Active Aspirin rash Drug Allergy August, Active ENCOUNTERS Encounter Location Date Diagnosis [facility] [address] [facility] [id number] [id number] Dec, [facility] [address] [facility] [id number][place] [address] Nov, [facility] [address] [facility] [id number][place] [id number] Nov, BMI 45.0-49.9, adult Z68.42 ; Strain of lumbar region, subsequent encounter S39.012D ; PTSD (post-traumatic stress disorder) F43.10 and Dysthymia F34.1 [facility] [id number] [place] [address] [id number] Oct, [facility] [id number] [place] [address] [id number] Oct, Dysthymia F34.1 and PTSD (post-traumatic stress disorder) F43.10 [facility] [id number] [place] [address] [id number] Oct, BMI 45.0-49.9, adult Z68.42 ; Dysthymia F34.1 ; PTSD (post-traumatic stress disorder) F43.10 and Infective urethritis N34.2 [facility] [address] [id number] [place] [id number] Oct, Dysthymia F34.1 and PTSD (post-traumatic stress disorder) F43.10 [facility] [id number] [place] [address] [id number] Sep, Dysthymia F34.1 and PTSD (post-traumatic stress disorder) F43.10 [facility] [id number], [place] [id number] Sep, BMI 45.0-49.9, adult Z68.42 and Mood disorder F39 [facility] [id number] [place] [address] [id number] Sep, [facility] [address] [id number] [place] [id number] Sep, Dysthymia F34.1 [facility] [place] [id number] [place] [address] [id number] Sep, Mood disorder F39 [facility] [address] [id number] [place] [id number] August, Dysthymia F34.1 [facility] [id number] [place] [address] [id number] August, Dysthymia F34.1 ; Chronic airway obstruction, not elsewhere classified J44.9 ; Back pain with left-sided radiculopathy M54.10 and BMI 45.0-49.9, adult Z68.42 [facility] [place] [id number] [place] [address] [id number] Jul, Urinary tract infection without hematuria, site unspecified N39.0 and Fatigue, unspecified type R53.83 [place] [id number] [place] [address] [id number] Jul, Chronic airway obstruction, not elsewhere classified J44.9 [place] [id number] [place] [address] [id number] Jul, BMI 45.0-49.9, adult Z68.42 and Infective urethritis N34.2 [place] [id number] [place] [address] [id number] Jul, [address] [id number] Jun, Back pain with left-sided radiculopathy M54.10 [place] [id number] [place] [address] [id number] May, Chronic airway obstruction, not elsewhere classified J44.9 and Encounter for immunization Z23 [address] [place] [address] [id number] Apr, BMI 45.0-49.9, adult Z68.42 ; Back pain with left-sided radiculopathy M54.10 ; Chronic airway obstruction, not elsewhere classified J44.9 and Dysthymia F34.1 [address] [place] [address] [id number] Mar, Sciatica of left side M54.32 ; Back pain with left-sided radiculopathy M54.10 and Hereditary and idiopathic neuropathy, 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 [place] [id number] [place] [address] [id number] Mar, Flank pain R10.9 ; Urinary urgency R39.15 and Chronic airway obstruction, not elsewhere classified J44.[address] [id number], [place] [id number] Mar, Dysthymia F34.1 [facility] [address] [id number] [place] [id number] Feb, [facility] [address]00565[place] [address] Feb, [facility] [id number] [place] [address] [id number] Feb, Hematuria, unspecified type R31.9 ; Kidney stone N20.0 and BMI 40.0-44.9, adult Z68.41 [facility] [address] [place], [place] [id number] [place] [address] Feb, [facility] [address] [facility] [id number] [place] [id number] Feb, [facility] [id number] [place] [address] [id number] Feb, [facility] [id number] [place] [address] [id number] Feb, Dysthymia F34.1 ; Encounter for immunization Z23 ; Acute nasopharyngitis J00 ; Chronic rhinitis J31.0 and Chronic airway obstruction, not elsewhere classified J44.9 [facility] [address]00565100[place] [address] Jan, Well woman exam Z01.419 ; Left breast lump N63.20 and BMI 40.0-44.9, adult Z68.41 [facility] [id number] [place] [address] [id number] Jan, Muscle cramps R25.2 [facility] [id number] [place] [address] [id number] Dec, Dysthymia F34.1 [facility] [id number] [place] [address] [id number] Dec, Muscle cramps R25.2 [facility] [id number] [place] [address] [id number] Nov, Dysthymia F34.1 [facility] [id number] [place] [address] [id number] Oct, [facility] [address] [id number] Oct, Chronic airway obstruction, not elsewhere classified J44.9 ; Moderate single current episode of major depressive disorder F32.1 ; Chronic rhinitis J31.0 and Muscle cramps R25.2 [facility] [id number] [place] [address] [id number] Sep, Acute nasopharyngitis J00 [facility] [id number] [place] [phone] Jun, Acute exacerbation of chronic obstructive pulmonary disease (COPD) J44.1 [facility] [id number] [place] [address] [id number] Jun, Acute nasopharyngitis J00 [facility] [id number] [place] [address] [id number] Jun, [facility] [id number] [place] [address] Apr, [facility] [id number] [place] [address] [id number] Mar, Acute nasopharyngitis J00 [facility] [id number] [place] [address] [id number] Mar, [facility] [id number] [place] [address] [id number] Mar, [facility] [id number] [place] [address] [id number] Feb, CAP (community acquired pneumonia) J18.9 and Chronic rhinitis J31.0 [facility] [id number] [place] [address] [id number] Feb, CAP (community acquired pneumonia) J18.9 [facility] [id number] [place] [address] [id number] Feb, CAP (community acquired pneumonia) J18.9 [facility] [id number] [place] [address] [id number] Feb, [facility] [id number], [place] [id number] Jan, Mood disorder F39 [facility] [address]00565100[place] [address] Jan, [facility] [id number], [place] [id number] Jan, Lung nodule R91.1 [facility] [id number] [place] [address] [id number] Jan, Lung nodule R91.1 [facility] [id number] [place] [address] [id number] Jan, Lung nodule R91.1 [facility] [id number] [place] [address] [id number] Jan, Lung nodule R91.1 [place] [id number] [place] [address] [id number] Jan, [facility] [id number] [place] [address] [id number] Nov, Overactive bladder N32.81 ; Chronic airway obstruction, not elsewhere classified J44.9 and Essential hypertension I10 [address] [place] [address] [id number] Oct, [address] [place] [address] [id number] Oct, Acute non-recurrent sinusitis, unspecified location J01.90 ; Cough R05 and Tobacco dependence F17.200 [place] [id number] [place] [address] [id number] Sep, Overactive bladder N32.81 and Chronic airway obstruction, not elsewhere classified J44.9 [address] [place] [address] [id number] August, Chronic airway obstruction, not elsewhere classified J44.9 ; Mood disorder F39 and Urinary frequency R35.0 [address] [place] [address] [id number] August, [place] [id number] [id number] Jul, Lung nodule R91.1 ; Chronic airway obstruction, not elsewhere classified J44.9 and Urinary tract infection without hematuria, site unspecified N39.0 [facility] [id number], [place] [id number] Jul, Lung nodule R91.1 [facility] [address] [place] [address] [id number] Jul, [facility] [id number] [place] [address] [id number] Jul, Diarrhea R19.7 and Lung nodule R91.1 [place] [id number] [place] [address] [id number] Apr, Upper respiratory tract infection, unspecified type J06.9 and COPD exacerbation J44.1 [address] [place] [address] [id number] Mar, [place] [id number] [place] [address] [id number] Feb, Mood disorder F39 and Essential hypertension I10 [address] [place] [address] [id number] Jan, Essential hypertension I10 ; Mood disorder F39 ; Chronic airway obstruction, not elsewhere classified J44.9 and Chronic rhinitis J31.0 [address]00565100[place] [id number] Jan, [place] [address] [place] [id number] [id number] Jan, [facility] [place] [address] [facility] [id number] [place] [id number] Jan, [facility] [id number] [place] [address] [id number] Jan, [facility] [address]00565100[place], [place] [id number] Dec, Bronchitis 490 [facility] [id number], [place] [id number] Dec, [facility] [address] [place] [id number] [id number] Sep, Rhinitis 472.0 [facility] [address]00565100[place], [place] [address] Jul, [facility] [address]00565100[place], [place] [address] Jul, [facility] [id number], [place] [id number] Jun, [facility] [address] [id number], [place] [address] Jun, [facility] [address]00565100[place], [place] [address] Jun, [facility] [id number], [place] [id number] May, [facility] [address]00565100[place], [place] [address] 0[address] May, [facility] [id number], [place] [id number] Apr, [facility] [address]00565100[place], [place] [address] Apr, [facility] [id number], [place] [id number] Mar, [facility] [address] [id number], [place] [address]- 56[address] Mar, [facility] [id number], [place] [id number] Mar, [facility] [address] [id number], [place] [address]- 4[address] Mar, [facility] [address] [id number], [place] [id number] Mar, [facility] [address] [id number], [place] [address]- 9[address] Mar, [facility] [address] [id number], [place] [id number] Mar, [facility] [address] [facility] [id number], [place] [address] 67[address] Mar, [facility] [address] [facility] [id number], [place] [id number] Feb, [facility] [address] [facility] [id number], [place] [address]- 97[address] Feb, [facility] [address] [facility] [id number] [place] [id number] Feb, [facility] [address] [facility] [id number], [place] [address]- [address] Feb, [facility] [address] [facility] [id number] [place] [address] [id number] Feb, [facility] [address] [id number], [place] [address]- 96[address] Feb, [facility] [address] [id number], [place] [id number] Jan, [facility] [address]00565100[place], [place] [address]- 978[address] Jan, [facility] [address] [facility] [id number], [place] [id number] Jan, [facility] [address]00565100[place], [place] [address]- [address] Jan, [facility] [address] [facility] [id number], [place] [id number] Sep, [facility] [address] [facility] [id number], [place] [address]- 1873 Sep, [facility] [address] [facility] [id number], [place] [address]- 8278 Sep, [facility] [address] [facility] [id number], [place] [id number] Sep, [facility] [address] [facility] [id number], [place] [address]- 0270 Sep, [facility] [address]00565100[place], [place] [address]- 6[address] Sep, [facility] [address] [id number] [place] [id number] Jul, [facility] [place] [facility] [address] [facility] [id number] [place] [address]- 2546 Jul, [facility] [address] [id number] [place] [id number] Jun, [facility] [place] [facility] [address] [facility] [id number] [place] [address]- 2546 Jun, [facility] [address] [id number] [place] [id number] Jun, [facility] [place] [facility] [address] [facility] [id number] [place] [address]- 2546 Jun, [facility] [address] [facility] [id number] [place] [id number] Apr, [facility] [place] [facility] [address]00565100[place], [place] [address]- [address] Apr, [facility] [address] [id number] [place] [id number] Mar, [facility] [address] [facility] [id number], [place] [address]- 9[address] Mar, [facility] [address] [facility] [id number], [place] [id number] Mar, [facility] [address] [facility] [id number], [place] [address]- 68[address] Mar, [facility] [address] [facility] [id number], [place] [id number] Feb, [facility] [address] [facility] [id number], [place] [address]- 2546 Feb, [facility] [address] [facility] [id number], [place] [id number] Jan, [facility] [address] [facility] [id number], [place] [address]- 67[address] Jan, [facility] [address] [id number] [place] [id number] 30 Dec, 2012 [facility] [place] [facility] [address] [id number] [place] [address]- 2547 16 Dec, 2012 [facility] [address] [id number] [place] [id number] Dec, [facility] [address] [id number] [place] [id number] Dec, [facility] [address] [id number] [place] [id number] Oct, [facility] [address] [facility] [id number] [place] [address]- 254 Oct, [facility] [place] [facility] [address] [facility] [id number] [place] [address]- 2545 Oct, [facility] [address] [id number] [place] [id number] Oct, [facility] [address] [id number] [place] [id number] Sep, [facility] [address] [id number] [place] [id number] August, [facility] [address] [id number] [place] [id number] August, [facility] [address] [id number] [place] 729172823 August, [facility] [address] [id number] [place] [id number] Jul, [facility] [address] [facility] [id number], [place] [address]- 2546 Jul, [facility] [address] [id number] [place] [id number] Jul, [facility] [address] [id number] [place] [id number] Jun, [facility] [place] [facility] [address] [facility] [id number] [place] [address]- 2546 Jun, [facility] [address] [id number] [place] [id number] Jun, [facility] [address] [id number] [place] [id number] Jun, [facility] [address] [id number] [place] [id number] Jun, [facility] [address] [id number] [place] [id number] Jun, [facility] [address] [id number] [place] [id number] Jun, [facility] [address] [id number] [place] [id number] Feb, [facility] [address] [facility] [id number] [place] [address]- 2546 Feb, [facility] [address] [id number] [place] [id number] Jan, [facility] [address] [id number] [place] [id number] Nov, [facility] [id number] [place] [address] [id number] Oct, [facility] [address] [id number] [place] [id number] Oct, [facility] [id number], [place] [id number] Sep, [facility] [id number] [place] [address]- 1504 Mar, [facility] [id number] [place] [address] 20332- 5288 Nov, IMMUNIZATIONS No Known Immunizations SOCIAL HISTORY Never Assessed REASON FOR VISIT depression Jake PEREZ PLAN OF CARE Activity Details Follow Up 2 Weeks Reason:depression VITAL SIGNS Height 67 in 2017-08-23 Weight 289 lbs 2017-08-23 Temperature 96.7 degrees Fahrenheit 2017-08-23 Heart Rate 88 bpm 2017-08-23 Respiratory Rate 18 2017-08-23 BMI 45.26 kg/m2 2017-08-23 Blood pressure systolic 112 mmHg 2017-08-23 Blood pressure diastolic 80 mmHg 2017-08-23 MEDICATIONS Medication Instructions Dosage Frequency Start Date End Date Duration Status Paroxetine HCl 40 MG Orally BID one tab 12h Active Zyrtec Allergy 10 mg Orally Once a day 1 tablet 24h Active Trazodone HCl 50 mg Orally Once a day .5-1 tablet at bedtime as needed 24h August, Active Pantoprazole Sodium 40 mg Orally Once a day 1 tablet 24h Active Flonase 50 mcg/act Nasally Once a day 2 spray in each nostril 24h Apr, Active Spiriva HandiHaler 18 MCG Inhalation Once a day 1 capsule 24h Active Albuterol Sulfate HFA cfc free 90 mcg/inh Inhalation every 4 hrs 2 puffs as needed 4h Dec, Active Methocarbamol 500 mg Orally 3 times a day 1 tablets 8h Oct, Active Symbicort 80-4.5 MCG/ACT Inhalation Twice a [...] Surgical History cholecystectomy 1979 Hospitalization History Via [facility] for pneumonia 2012 Hospitalization History Via [facility] x 3 days for stomach flu 07/24/15 Hospitalization History [facility] for vomiting-given mag citrate for "blockage" 03/09/2016
--- OUTSIDE RECORDS SUMMARY | 2018-04-15 01:25 | XMS REPORT ---
Author Author KATERINA SMITH [facility] Address [address] [place] [address] Care Team Providers [employer] [place] Mobile Radio Technician Name Role Phone SMITHKATERINA Unavailable PROBLEMS Type Condition ICD9-CM Code CAU81-QT Code Onset Dates Condition Status SNOMED Code Problem CAP (community acquired pneumonia) J18.9 Active 840345727 Problem Moderate single current episode of major depressive disorder F32.1 Active 09548264 Problem Acute exacerbation of chronic obstructive pulmonary disease (COPD) J44.1 Active 721400925 Problem PTSD (post-traumatic stress disorder) F43.10 Active 31032110 Problem Hereditary and idiopathic neuropathy, 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 Active 49795330 Problem Kidney stone N20.0 Active 93727718 Problem Dysthymia F34.1 Active 90436290 Problem Back pain with left-sided radiculopathy M54.10 Active 689420184 Problem Sciatica of left side M54.32 Active 00750027 Problem Female stress incontinence 625.6 Active 81342039 Problem Nondependent tobacco use disorder 305.1 Active 695483275 Problem Essential hypertension I10 Active 99564395 Problem Chronic airway obstruction, not elsewhere classified J44.9 Active 20119137 Problem Chronic rhinitis J31.0 Active 49164273 Problem Lung nodule R91.1 Active 396721733 Problem Mood disorder F39 Active 62035552 Problem Overactive bladder N32.81 Active 078761777 ALLERGIES No Information ENCOUNTERS Encounter Location Date Diagnosis [facility] [place] [address] [id number] [place] [address] Nov, [facility] [address] [facility] [id number][place] [id number] Nov, [facility] [address] [facility] [id number], [place] [id number] Nov, [facility] [address] [id number][place] [id number] Oct, [facility] [address] [id number], [place] 607485655 Oct, Dysthymia F34.1 and PTSD (post-traumatic stress disorder) F43.10 [facility] [id number], [place] [id number] Oct, BMI 45.0-49.9, adult Z68.42 ; Dysthymia F34.1 ; PTSD (post-traumatic stress disorder) F43.10 and Infective urethritis N34.2 [facility] [address] [id number] [id number] Oct, Dysthymia F34.1 and PTSD (post-traumatic stress disorder) F43.10 [facility] [address] [id number] [place] [address] [id number] Sep, Dysthymia F34.1 and PTSD (post-traumatic stress disorder) F43.[address] [place] [address] [id number] Sep, BMI 45.0-49.9, adult Z68.42 and Mood disorder F39 [facility] [place] [id number] [place] [address] [id number] Sep, [facility] [address] [id number] [place] [address] [id number] Sep, Dysthymia F34.1 [facility] [address] [place] [address] [id number] Sep, Mood disorder F39 [address] [id number] [place] [address] [id number] August, Dysthymia F34.1 [facility] [address] [place] [address] [id number] August, Dysthymia F34.1 ; Chronic airway obstruction, not elsewhere classified J44.9 ; Back pain with left-sided radiculopathy M54.10 and BMI 45.0-49.9, adult Z68.42 [facility] [place] [id number] [place] [address] [id number] Jul, Urinary tract infection without hematuria, site unspecified N39.0 and Fatigue, unspecified type R53.83 [address]00565100[place] [id number] Jul, Chronic airway obstruction, not elsewhere classified J44.9 [address]00565100[place] [id number] Jul, BMI 45.0-49.9, adult Z68.42 and Infective urethritis N34.[address] [place] [address] [id number] Jul, [address] [place] [address] [id number] Jun, Back pain with left-sided radiculopathy M54.[address] [place] [address] [id number] May, Chronic airway obstruction, not elsewhere classified J44.9 and Encounter for immunization Z23 [address]00565100[place] [id number] Apr, BMI 45.0-49.9, adult Z68.42 ; Back pain with left-sided radiculopathy M54.10 ; Chronic airway obstruction, not elsewhere classified J44.9 and Dysthymia F34.1 [address]00565100[place] [id number] Mar, Sciatica of left side M54.32 ; Back pain with left-sided radiculopathy M54.10 and Hereditary and idiopathic neuropathy, 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 [address]00565100[place] [id number] Mar, Flank pain R10.9 ; Urinary urgency R39.15 and Chronic airway obstruction, not elsewhere classified J44.9 [place] [address] [id number] [id number] Mar, Dysthymia F34.1 [facility] [address] [facility] [id number][place] [id number] Feb, [facility] [place] [address]00565100[place] [address] Feb, [facility] [id number] [place] [address] [id number] Feb, Hematuria, unspecified type R31.9 ; Kidney stone N20.0 and BMI 40.0-44.9, adult Z68.41 [facility] [address] [place], [place] [id number] [place] [address] Feb, [facility] [address] [id number][place] [id number] Feb, [facility] [id number] [place] [address] [id number] Feb, [facility] [id number] [place] [address] [id number] Feb, Dysthymia F34.1 ; Encounter for immunization Z23 ; Acute nasopharyngitis J00 ; Chronic rhinitis J31.0 and Chronic airway obstruction, not elsewhere classified J44.9 [facility] [place] [address]00565100[place] [address] Jan, Well woman exam Z01.419 ; Left breast lump N63.20 and BMI 40.0-44.9, adult Z68.41 [facility] [id number] [place] [address] [id number] Jan, Muscle cramps R25.2 [facility] [id number] [place] [address] [id number] Dec, Dysthymia F34.1 [facility] [id number] [place] [address] [id number] Dec, Muscle cramps R25.2 [facility] [id number] [place] [address] [id number] Nov, Dysthymia F34.1 [facility] [id number] [place] [address] [id number] Oct, [facility] [id number] [place] [address] [id number] Oct, Chronic airway obstruction, not elsewhere classified J44.9 ; Moderate single current episode of major depressive disorder F32.1 ; Chronic rhinitis J31.0 and Muscle cramps R25.2 [facility] [address] [id number] Sep, Acute nasopharyngitis J00 [facility] [id number] [place] [phone] Jun, Acute exacerbation of chronic obstructive pulmonary disease (COPD) J44.1 [facility] [id number] [place] [address] [id number] Jun, Acute nasopharyngitis J00 [facility] [id number] [place] [address] [id number] Jun, [facility] [place] [id number] [place] [address] [id number] Apr, [facility] [id number] [place] [address] [id number] Mar, Acute nasopharyngitis J00 [facility] [id number] [place] [address] [id number] Mar, [facility] [id number] [place] [address] [id number] Mar, [facility] [address] [id number] Feb, CAP (community acquired pneumonia) J18.9 and Chronic rhinitis J31.0 [facility] [address] [id number] Feb, CAP (community acquired pneumonia) J18.9 [facility] [id number] [place] [address] [id number] Feb, CAP (community acquired pneumonia) J18.9 [facility] [id number] [place] [address] [id number] Feb, [facility] [address] [id number] Jan, Mood disorder F39 [facility] [place] [id number] [place] [address] Jan, [facility] [id number] [place] [address] [id number] Jan, Lung nodule R91.1 [place] [address] [id number] Jan, Lung nodule R91.1 [place] [id number] [place] [address] [id number] Jan, Lung nodule R91.[address] [id number] Jan, Lung nodule R91.[address] [id number] Jan, [address] [id number] Nov, Overactive bladder N32.81 ; Chronic airway obstruction, not elsewhere classified J44.9 and Essential hypertension I10 [address] [id number] Oct, [address] [id number] Oct, Acute non-recurrent sinusitis, unspecified location J01.90 ; Cough R05 and Tobacco dependence F17.200 [place] [id number] [place] [address] [id number] Sep, Overactive bladder N32.81 and Chronic airway obstruction, not elsewhere classified J44.9 [place] [id number] [place] [address] [id number] August, Chronic airway obstruction, not elsewhere classified J44.9 ; Mood disorder F39 and Urinary frequency R35.0 [place] [id number] [place] [address] [id number] August, [address] [id number] Jul, Lung nodule R91.1 ; Chronic airway obstruction, not elsewhere classified J44.9 and Urinary tract infection without hematuria, site unspecified N39.0 [place] [id number] [place] [address] [id number] Jul, Lung nodule R91.1 [facility] [id number], [place] [id number] Jul, [facility] [id number] [place] [address] [id number] Jul, Diarrhea R19.7 and Lung nodule R91.1 [facility] [id number] [place] [address] [id number] Apr, Upper respiratory tract infection, unspecified type J06.9 and COPD exacerbation J44.1 [facility] [address] [place] [address] [id number] Mar, [facility] [place] [id number] [place] [address] [id number] Feb, Mood disorder F39 and Essential hypertension I10 [facility] [address] [place] [address] [id number] Jan, Essential hypertension I10 ; Mood disorder F39 ; Chronic airway obstruction, not elsewhere classified J44.9 and Chronic rhinitis J31.0 [facility] [address]00565100[place], [place] [id number] Jan, [facility] [id number] [place], [place] [id number] Jan, [facility] [place] [address] [facility] [id number] [id number] Jan, [facility] [address] [id number], [place] [id number] Jan, [facility] [address]00565100[place], [place] [id number] Dec, Bronchitis 490 [facility] [address] [facility] [id number] [place] [id number] Dec, [facility] [id number] [place] [address] [id number] Sep, Rhinitis 472.0 [facility] [address]00565100[place] 46[address]- [address] Jul, [facility] [id number] [place] [address]- 4476 Jul, [facility] [address] [facility] [id number] [place] [id number] Jun, [facility] [place] [facility] [address] [facility] [id number] [place] [address] 8[address] Jun, [facility] [place] [facility] [address] [facility] [id number] [place] [address] 9[address] Jun, [facility] [address] [facility] [id number], [place] [id number] May, [facility] [place] [facility] [address] [facility] [id number] [place] [address]- 7[address] May, [facility] [address] [facility] [id number], [place] [id number] Apr, [facility] [place] [facility] [address]00565100[place] [address]- 9[address] Apr, [facility] [address] [facility] [id number], [place] [id number] Mar, [facility] [place] [facility] [address] [id number] [address]- [address] Mar, [facility] [address] [facility] [id number], [place] [id number] Mar, [facility] [place] [facility] [address] [id number] [address]- 1079 Mar, [facility] [address] [facility] [id number], [place] [id number] Mar, [facility] [place] [facility] [address] [facility] [id number] [place] [address]- 05[address] Mar, [facility] [address] [facility] [id number], [place] [id number] Mar, [facility] [place] [facility] [address] [facility] [id number] [place] [address]- 0706 Mar, [facility] [address] [facility] [id number], [place] [id number] Feb, [facility] [place] [facility] [address] [facility] [id number] [place] [address]- 84[address] Feb, [facility] [address] [facility] [id number] [place] [id number] Feb, [facility] [place] [facility] [address] [facility] [id number] [place] [address]- 8606 Feb, [facility] [address] [facility] [id number] [place] [id number] Feb, [facility] [place] [facility] [address] [facility] [id number] [place] [address]- 5886 Feb, [facility] [address] [facility] [id number] [place] [id number] Jan, [facility] [place] [facility] [address] [facility] [id number] [place] [address]- 7443 Jan, [facility] [address] [place] [id number] [place] [id number] Jan, [facility] [place] [facility] [address] [facility] [id number] [place] [address]- 1560 Jan, [facility] [address] [facility] [id number] [place] [id number] Sep, [facility] [place] [facility] [address] [facility] [id number] [place] [address]- 9245 Sep, [facility] [place] [facility] [address] [facility] [id number] [place] [address]- 1644 Sep, [facility] [address] [facility] [id number], [place] [id number] Sep, [facility] [place] [facility] [address] [facility] [id number] [place] [address]- 5271 Sep, [facility] [place] [facility] [address] [facility] [id number] [place] [address]- 6057 Sep, [facility] [address] [facility] [id number] [place] [id number] Jul, [facility] [place] [facility] [address] [facility] [id number] [place] [address]- 5659 Jul, [facility] [address] [id number] [place] [id number] Jun, [facility] [address] [facility] [id number] [place] [address]- 5103 Jun, [facility] [address] [facility] [id number], [place] [id number] Jun, [facility] [address] [facility] [id number] [place] [address]- 9204 Jun, [facility] [address] [facility] [id number], [place] [id number] Apr, [facility] [address] [facility] [id number] [place] [address]- 1191 Apr, [facility] [address] [facility] [id number], [place] 534980296 Mar, [facility] [place] [facility] [address]00565100[place] [address]- 5255 Mar, [facility] [address] [place] [id number], [place] [id number] Mar, [facility] [place] [facility] [address] [id number]44[place]- 1727 Mar, [facility] [address] [id number], [place] [id number] Feb, [facility] [place] [facility] [address]00565100[place] [address]- 6966 Feb, [facility] [address] [id number], [place] 623949914 Jan, [facility] [place] [facility] [address] [facility] [id number] [place] [address]- 4740 Jan, [facility] [address] [facility] [id number], [place] [id number] 30 Dec, 2012 [facility] [place] [facility] [address] [facility] [id number] [place] [address]- 1214 16 Dec, 2012 [facility] [address] [id number], [place] [id number] Dec, [facility] [address] [id number] [place] 856204616 Dec, [facility] [address] [id number] [place] [id number] Oct, [facility] [place] [facility] [address] [facility] [id number] [place] [address]- 2546 Oct, [facility] [address] [facility] [id number] [place] [address]- 2546 Oct, [facility] [address] [id number] [place] [id number] Oct, [facility] [address] [id number] [place] [id number] Sep, [facility] [address] [id number] [place] [id number] August, [facility] [address] [id number] [place] 065714453 August, [facility] [address] [id number] [place] [id number] August, [facility] [address] [id number] [place] [id number] Jul, [facility] [address] [facility] [id number] [place] [address]- 2546 Jul, [facility] [address] [id number] [place] [id number] Jul, [facility] [address] [id number], [place] 890327446 Jun, [facility] [place] [facility] [address] [facility] [id number] [place] [address]- 2546 Jun, [facility] [address] [id number] [place] [id number] Jun, [facility] [address] [id number] [place] [id number] Jun, [facility] [address] [id number] [place] [id number] Jun, [facility] [address] [id number] [place] [id number] Jun, [facility] [address] [place] [id number], [place] [id number] Jun, [facility] [id number], [place] [id number] Feb, [facility] [place] [address] [id number] [address]- 2546 Feb, [facility] [id number], [place] 740964450 Jan, [facility] [id number] [place] [address] [id number] Nov, [facility] [id number] [place] [address] [id number] Oct, [facility] [id number] [place] [address] [id number] Oct, [facility] [address]00565100[place], [place] 799796217 Sep, [facility] [place] [id number] [place] [address] 26088- 2546 Mar, [facility] [place] [address]00565100[place] [address]- 2546 Nov, IMMUNIZATIONS No Known Immunizations SOCIAL HISTORY Never Assessed REASON FOR VISIT Medication refill request PLAN OF CARE VITAL SIGNS MEDICATIONS Medication Instructions Dosage Frequency Start Date End Date Duration Status Spiriva HandiHaler 18 MCG Inhalation Once a day 1 capsule 24h August, 30 days Active RESULTS No Results PROCEDURES No Known procedures INSTRUCTIONS MEDICATIONS ADMINISTERED No Known Medications MEDICAL (GENERAL) HISTORY Type Description Date Medical History hypertension Medical History allergies Medical History chronic obstructive pulmonary disease (COPD) Medical History anxiety Medical History sciatica Medical History acid reflux Medical History Pneumococcal inj (2012) Medical History depression Surgical History cholecystectomy 1979 Hospitalization History [facility] 2012 Hospitalization History [facility] 3 days for stomach flu 07/24/15 Hospitalization History [facility] for [facility]-given mag citrate for "blockage" 03/09/2016
--- OUTSIDE RECORDS SUMMARY | 2018-04-15 01:25 | XMS REPORT ---
Author Author KATERINA SMITH [facility] Address [address] [place] [address] Care Team Providers Care Bus Washer Name Role Phone KATERINA SMITH Unavailable PROBLEMS Type Condition ICD9-CM Code [id number] Code Onset Dates Condition Status SNOMED Code Problem CAP (community acquired pneumonia) J18.9 Active 223316239 Problem Moderate single current episode of major depressive disorder F32.1 Active 41989514 Problem Acute exacerbation of chronic obstructive pulmonary disease (COPD) J44.1 Active 255837192 Problem PTSD (post-traumatic stress disorder) F43.10 Active 40138092 Problem Hereditary and idiopathic neuropathy, 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 Active 37049542 Problem Kidney stone N20.0 Active 62514220 Problem Dysthymia F34.1 Active 97431029 Problem Back pain with left-sided radiculopathy M54.10 Active 484766159 Problem Sciatica of left side M54.32 Active 55636945 Problem Female stress incontinence 625.6 Active 62108778 Problem Nondependent tobacco use disorder 305.1 Active 807214870 Problem Essential hypertension I10 Active 51896796 Problem Chronic airway obstruction, not elsewhere classified J44.9 Active 85923314 Problem Chronic rhinitis J31.0 Active 87573490 Problem Lung nodule R91.1 Active 561751052 Problem Mood disorder F39 Active 69436977 Problem Overactive bladder N32.81 Active 515764789 ALLERGIES Substance Reaction Event Type Date Status Penicillin V Potassium rash Drug Allergy Jul, Active Aspirin rash Drug Allergy Jul, Active ENCOUNTERS Encounter Location Date Diagnosis [facility] [address] [id number] [id number] Dec, [facility] [address] [facility] [id number] [place] [address] Nov, [facility] [address] [id number], [place] [id number] Nov, BMI 45.0-49.9, adult Z68.42 ; Strain of lumbar region, subsequent encounter S39.012D ; PTSD (post-traumatic stress disorder) F43.10 and Dysthymia F34.1 [facility] [address] [id number] [place] [address] [id number] Oct, [facility] [id number] [place] [address] [id number] Oct, Dysthymia F34.1 and PTSD (post-traumatic stress disorder) F43.10 [facility] [address] [id number] [place] [address] [id number] Oct, BMI 45.0-49.9, adult Z68.42 ; Dysthymia F34.1 ; PTSD (post-traumatic stress disorder) F43.10 and Infective urethritis N34.2 [facility] [address] [id number][place] [id number] Oct, Dysthymia F34.1 and PTSD (post-traumatic stress disorder) F43.10 [facility] [id number] [place] [address] [id number] Sep, Dysthymia F34.1 and PTSD (post-traumatic stress disorder) F43.10 [facility] [id number], [place] [id number] Sep, BMI 45.0-49.9, adult Z68.42 and Mood disorder F39 [facility] [id number] [place] [address] [id number] Sep, [facility] [address] [id number][place] [id number] Sep, Dysthymia F34.1 [facility] [place] [address] [id number] [place] [address] [id number] Sep, Mood disorder F39 [facility] [address] [id number], [place] [id number] August, Dysthymia F34.1 [facility] [id number] [place] [address] [id number] August, Dysthymia F34.1 ; Chronic airway obstruction, not elsewhere classified J44.9 ; Back pain with left-sided radiculopathy M54.10 and BMI 45.0-49.9, adult Z68.42 [facility] [place] [id number] [place] [address] [id number] Jul, Urinary tract infection without hematuria, site unspecified N39.0 and Fatigue, unspecified type R53.83 [place] [id number] [place] [address] [id number] Jul, Chronic airway obstruction, not elsewhere classified J44.9 [place] [id number] [place] [address] [id number] Jul, BMI 45.0-49.9, adult Z68.42 and Infective urethritis N34.2 [place] [id number] [place] [address] [id number] Jul, [address] [id number] Jun, Back pain with left-sided radiculopathy M54.10 [place] [id number] [place] [address] [id number] May, Chronic airway obstruction, not elsewhere classified J44.9 and Encounter for immunization Z23 [address] [place] [address] [id number] Apr, BMI 45.0-49.9, adult Z68.42 ; Back pain with left-sided radiculopathy M54.10 ; Chronic airway obstruction, not elsewhere classified J44.9 and Dysthymia F34.1 [address] [place] [address] [id number] Mar, Sciatica of left side M54.32 ; Back pain with left-sided radiculopathy M54.10 and Hereditary and idiopathic neuropathy, 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 [place] [id number] [place] [address] [id number] Mar, Flank pain R10.9 ; Urinary urgency R39.15 and Chronic airway obstruction, not elsewhere classified J44.[address] [id number], [place] [id number] Mar, Dysthymia F34.1 [facility] [address] [id number], [place] [id number] Feb, [facility] [address]00565100[place], [place] [address] Feb, [facility] [id number] [place] [address] [id number] Feb, Hematuria, unspecified type R31.9 ; Kidney stone N20.0 and BMI 40.0-44.9, adult Z68.41 [facility] [address] [place], [place] [id number] [place] [address] Feb, [facility] [address] [facility] [address] [id number], [place] [id number] Feb, [facility] [id number] [place] [address] [id number] Feb, [facility] [id number] [place] [address] [id number] Feb, Encounter for immunization Z23 ; Dysthymia F34.1 ; Acute nasopharyngitis J00 ; Chronic rhinitis J31.0 and Chronic airway obstruction, not elsewhere classified J44.9 [facility] [address]00565100[place], [place] [address] Jan, Well woman exam Z01.419 ; Left breast lump N63.20 and BMI 40.0-44.9, adult Z68.41 [facility] [id number], [place] [id number] Jan, Muscle cramps R25.2 [facility] [id number] [place] [address] [id number] Dec, Dysthymia F34.1 [facility] [id number] [place] [address] [id number] Dec, Muscle cramps R25.2 [facility] [id number] [place] [address] [id number] Nov, Dysthymia F34.1 [facility] [id number] [place] [address] [id number] Oct, [facility] [address] [id number] Oct, Chronic airway obstruction, not elsewhere classified J44.9 ; Moderate single current episode of major depressive disorder F32.1 ; Chronic rhinitis J31.0 and Muscle cramps R25.2 [facility] [id number] [place] [address] [id number] Sep, Acute nasopharyngitis J00 [facility] [id number] [place] [phone] Jun, Acute exacerbation of chronic obstructive pulmonary disease (COPD) J44.1 [facility] [id number] [place] [address] [id number] Jun, Acute nasopharyngitis J00 [facility] [id number] [place] [address] [id number] Jun, [facility] [id number] [place] [address] Apr, [facility] [id number] [place] [address] [id number] Mar, Acute nasopharyngitis J00 [facility] [id number] [place] [address] [id number] Mar, [facility] [id number] [place] [address] [id number] Mar, [facility] [id number] [place] [address] [id number] Feb, CAP (community acquired pneumonia) J18.9 and Chronic rhinitis J31.0 [facility] [id number] [place] [address] [id number] Feb, CAP (community acquired pneumonia) J18.9 [facility] [id number] [place] [address] [id number] Feb, CAP (community acquired pneumonia) J18.9 [facility] [id number] [place] [address] [id number] Feb, [facility] [id number], [place] [id number] Jan, Mood disorder F39 [facility] [address]00565100[place], [place] [address] Jan, [facility] [id number], [place] [id number] Jan, Lung nodule R91.1 [facility] [id number] [place] [address] [id number] Jan, Lung nodule R91.1 [facility] [id number] [place] [address] [id number] Jan, Lung nodule R91.1 [facility] [id number] [place] [address] [id number] Jan, Lung nodule R91.1 [place] [id number] [place] [address] [id number] Jan, [facility] [id number] [place] [address] [id number] Nov, Overactive bladder N32.81 ; Chronic airway obstruction, not elsewhere classified J44.9 and Essential hypertension I10 [address] [place] [address] [id number] Oct, [address] [place] [address] [id number] Oct, Acute non-recurrent sinusitis, unspecified location J01.90 ; Cough R05 and Tobacco dependence F17.200 [address] [place] [id number] [place] [address] [id number] Sep, Overactive bladder N32.81 and Chronic airway obstruction, not elsewhere classified J44.9 [address] [place] [address] [id number] August, Chronic airway obstruction, not elsewhere classified J44.9 ; Mood disorder F39 and Urinary frequency R35.0 [address] [place] [address] [id number] August, [place] [id number] [id number] Jul, Lung nodule R91.1 ; Chronic airway obstruction, not elsewhere classified J44.9 and Urinary tract infection without hematuria, site unspecified N39.0 [facility] [id number], [place] [id number] Jul, Lung nodule R91.1 [facility] [address] [place] [address] [id number] Jul, [facility] [id number] [place] [address] [id number] Jul, Diarrhea R19.7 and Lung nodule R91.1 [place] [id number] [place] [address] [id number] Apr, Upper respiratory tract infection, unspecified type J06.9 and COPD exacerbation J44.1 [address] [place] [address] [id number] Mar, [place] [id number] [place] [address] [id number] Feb, Mood disorder F39 and Essential hypertension I10 [address] [place] [address] [id number] Jan, Essential hypertension I10 ; Mood disorder F39 ; Chronic airway obstruction, not elsewhere classified J44.9 and Chronic rhinitis J31.0 [address]00565100[place], [place] [id number] Jan, [place] [address] [id number] [id number] Jan, [facility] [place] [address] [address] [facility] [id number][place] [id number] Jan, [facility] [id number] [place] [address] [id number] Jan, [facility] [address]00565100[place], [place] [id number] Dec, Bronchitis 490 [facility] [id number] [place] [id number] Dec, [facility] [address] [id number], [place] [id number] Sep, Rhinitis 472.0 [facility] [place] [facility] [address]00565100[place], [place] [address] Jul, [facility] [place] [facility] [address]00565100[place], [place] [address] Jul, [facility] [id number], [place] [id number] Jun, [facility] [place] [facility] [address] [id number], [place] [address] Jun, [facility] [place] [facility] [address]00565100[place], [place] [address] Jun, [facility] [id number], [place] [id number] May, [facility] [place] [facility] [address]00565100[place], [place] [address] May, [facility] [id number], [place] [id number] Apr, [facility] [place] [facility] [address]00565100[place], [place] [address] 270[address] Apr, [facility] [id number], [place] [id number] Mar, [facility] [place] [facility] [address] [id number], [place] [address] Mar, [facility] [id number], [place] [id number] Mar, [facility] [place] [facility] [address] [id number], [place] [address] Mar, [facility] [address] [id number], [place] [id number] Mar, [facility] [place] [facility] [address] [id number], [place] [address] Mar, [facility] [address] [id number], [place] [id number] Mar, [facility] [place] [facility] [address] [facility] [id number], [place] [address] Mar, [facility] [address] [id number], [place] [id number] Feb, [facility] [place] [facility] [address] [facility] [id number], [place] [address] Feb, [facility] [address] [id number] [place] [id number] Feb, [facility] [place] [facility] [address] [facility] [id number], [place] [address] Feb, [facility] [id number] [place] [address] [id number] Feb, [facility] [place] [facility] [address] [id number], [place] [address] Feb, [facility] [address] [id number], [place] [id number] Jan, [facility] [place] [facility] [address]00565100[place], [place] [address]- [address] Jan, [facility] [address] [id number], [place] [id number] Jan, [facility] [place] [facility] [address]00565100[place], [place] [address]- [address] Jan, [facility] [address] [id number], [place] [id number] Sep, [facility] [place] [facility] [address] [facility] [id number], [place] [address]- [address] Sep, [facility] [place] [facility] [address] [facility] [id number], [place] [address]- [address] Sep, [facility] [address] [id number], [place] [id number] Sep, [facility] [place] [facility] [address] [facility] [id number], [place] [address] Sep, [facility] [place] [facility] [address]00565100[place], [place] [address]- [address] Sep, [facility] [address] [id number] [place] [id number] Jul, [facility] [place] [facility] [address] [facility] [id number] [place] [address]- [address] Jul, [facility] [address] [id number] [place] [id number] Jun, [facility] [place] [facility] [address] [facility] [id number] [place] [address]- [address] Jun, [facility] [address] [id number] [place] [id number] Jun, [facility] [place] [facility] [address] [facility] [id number] [place] [address]- 2546 Jun, [facility] [address] [id number] [place] [id number] Apr, [facility] [place] [facility] [address]00565100[place], [place] [address]- [address] Apr, [facility] [address] [id number] [place] [id number] Mar, [facility] [place] [facility] [address] [facility] [id number], [place] [address]- [address] Mar, [facility] [address] [id number], [place] [id number] Mar, [facility] [place] [facility] [address] [facility] [id number], [place] [address] Mar, [facility] [address] [id number], [place] [id number] Feb, [facility] [place] [facility] [address] [facility] [id number], [place] [address]- [address] Feb, [facility] [address] [id number], [place] 052607542 Jan, [facility] [place] [facility] [address] [facility] [id number], [place] [address]- [address] Jan, [facility] [address] [id number] [place] [id number] 30 Dec, 2012 [facility] [place] [facility] [address] [id number] [place] [address]- [address] 16 Dec, 2012 [facility] [address] [id number] [place] [id number] Dec, [facility] [address] [id number] [place] [id number] Dec, [facility] [address] [id number] [place] [id number] Oct, [facility] [address] [facility] [id number] [place] [address]- [address] Oct, [facility] [place] [facility] [address] [facility] [id number] [place] [address]- 2544 Oct, [facility] [address] [id number] [place] [id number] Oct, [facility] [address] [id number] [place] [id number] Sep, [facility] [address] [id number] [place] [id number] August, [facility] [address] [id number] [place] [id number] August, [facility] [address] [id number] [place] [id number] August, [facility] [address] [id number] [place] [id number] Jul, [facility] [address] [facility] [id number], [place] [address]- 2546 Jul, [facility] [address] [id number] [place] [id number] Jul, [facility] [address] [id number] [place] [id number] Jun, [facility] [place] [facility] [address] [facility] [id number] [place] [address]- 2546 Jun, [facility] [address] [id number] [place] [id number] Jun, [facility] [address] [id number] [place] [id number] Jun, [facility] [address] [id number] [place] [id number] Jun, [facility] [address] [id number] [place] [id number] Jun, [facility] [address] [id number] [place] [id number] Jun, [facility] [address] [id number] [place] [id number] Feb, [facility] [id number] [place] [address]- [address]46 Feb, [facility] [address] [id number] [place] [id number] Jan, [facility] [address] [id number] [place] [id number] Nov, [facility] [address] [id number] [place] [id number] Oct, [facility] [address] [id number] [place] [id number] Oct, [facility] [id number] [place] [id number] Sep, [facility] [id number] [place] [address] 2546 Mar, [facility] [id number] [place] [address] 760[address] 2543 Nov, IMMUNIZATIONS No Known Immunizations SOCIAL HISTORY Never Assessed REASON FOR VISIT Pt f/u on uti, pt also concerned about A1C since glucose was elevated in hospital [facility] PLAN OF CARE Activity Details Follow Up 4 Weeks Reason:fatigue VITAL SIGNS Height 67 in 2017-07-26 Weight 293.2 lbs 2017-07-26 Temperature 97.4 degrees Fahrenheit 2017-07-26 Heart Rate 80 bpm 2017-07-26 Respiratory Rate 16 2017-07-26 BMI 45.92 kg/m2 2017-07-26 Blood pressure systolic 128 mmHg 2017-07-26 Blood pressure diastolic 80 mmHg 2017-07-26 MEDICATIONS Medication Instructions Dosage Frequency Start Date End Date Duration Status Methocarbamol 500 mg Orally 3 times a day 1 tablets 8h Oct, Active Lisinopril 10 mg 1 tablet Once a day Orally Active Flonase 50 mcg/act Nasally Once a day 2 spray in each nostril 24h Apr, Active Paroxetine HCl 30 MG Orally BID one tab 12h Active Albuterol Sulfate HFA cfc free 90 mcg/inh Inhalation every 4 hrs 2 puffs as needed 4h Dec, Active Spiriva HandiHaler 18 MCG Inhalation Once a day 1 capsule 24h August, 30 days Active Gabapentin 300 MG Orally 3 times a day 1 capsule 8h Active Symbicort 80-4.5 MCG/ACT Inhalation Twice a day 2 puffs 12h Jul, Active Pantoprazole Sodium 40 mg Orally Once a day 1 tablet 24h Active Zyrtec Allergy 10 mg Orally Once a day 1 tablet 24h Active RESULTS Name Result Date Reference Range A1C (IN HOUSE) 2017-07-26 A1C IN HOUSE 5.8 4.3 - 5.6 % Previous A1c Lot [id number] Exp date 04/2019 UA LONG DIP (IN HOUSE) 2017-07-26 Lot # [id number] Exp date 01/2018 Clarity clear Color yellow Odor no GLU neg JU neg KET neg SG 1.010 BLO trace pH 5.5 Protein neg URO 0.2 NIT neg ALMAS neg Lot # Exp date UA W/ MICROSCOPY 2017-07-26 COLOR YELLOW YELLOW APPEARANCE CLEAR CLEAR SPECIFIC GRAVITY 1.007 1.001-1.035 PH 5.5 5.0-8.0 GLUCOSE NEGATIVE NEGATIVE BILIRUBIN NEGATIVE NEGATIVE KETONES NEGATIVE NEGATIVE OCCULT BLOOD NEGATIVE NEGATIVE PROTEIN NEGATIVE NEGATIVE NITRITE NEGATIVE NEGATIVE LEUKOCYTE ESTERASE NEGATIVE NEGATIVE WBC NONE SEEN < OR=5 RBC 0-2 < OR=2 SQUAMOUS EPITHELIAL CELLS 0-5 < OR=5 BACTERIA NONE SEEN NONE SEEN HYALINE CAST NONE SEEN NONE SEEN TSH 2017-07-26 TSH 1.25 0.40-4.50 PROCEDURES Procedure Date Ordered Result Body Site ROUTINE VENIPUNCTURE 2017-07-26 N/A LAB NOT BILLED BY [facility] July 26, 2017 URINALYSIS, AUTO, W/O SCOPE July 26, 2017 GLYCATED HEMOGLOBIN TEST July 26, 2017 INSTRUCTIONS MEDICATIONS ADMINISTERED No Known Medications [...]
--- OUTSIDE RECORDS SUMMARY | 2018-04-15 01:26 | XMS REPORT ---
Author Author KATERINA SMITH [facility] Address [address] [place] [address] Care Team Providers Care Rn Long Term Care Name Role Phone KATERINA SMITH Unavailable PROBLEMS Type Condition ICD9-CM Code YFT65-KM Code Onset Dates Condition Status SNOMED Code Problem CAP (community acquired pneumonia) J18.9 Active 627031849 Problem Moderate single current episode of major depressive disorder F32.1 Active 56960982 Problem Acute exacerbation of chronic obstructive pulmonary disease (COPD) J44.1 Active 674485854 Problem PTSD (post-traumatic stress disorder) F43.10 Active 87441763 Problem Hereditary and idiopathic neuropathy, 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 Active 47918622 Problem Kidney stone N20.0 Active 00484064 Problem Dysthymia F34.1 Active 43772172 Problem Back pain with left-sided radiculopathy M54.10 Active 031863456 Problem Sciatica of left side M54.32 Active 61306998 Problem Female stress incontinence 625.6 Active 96997724 Problem Nondependent tobacco use disorder 305.1 Active 898131338 Problem Essential hypertension I10 Active 61219726 Problem Chronic airway obstruction, not elsewhere classified J44.9 Active 48002489 Problem Chronic rhinitis J31.0 Active 14237048 Problem Lung nodule R91.1 Active 124525718 Problem Mood disorder F39 Active 81748055 Problem Overactive bladder N32.81 Active 425956760 ALLERGIES Substance Reaction Event Type Date Status Penicillin V Potassium rash Drug Allergy Jul, Active Aspirin rash Drug Allergy Jul, Active ENCOUNTERS Encounter Location Date Diagnosis [facility] [address] [facility] [id number] [place] [address] Nov, [facility] [address] [facility] [id number][place] [id number] Nov, [facility] [address] [facility] [id number], [place] [address] Nov, [facility] [address] [facility] [id number], [place] [id number] Oct, [facility] [address] [facility] [id number], [place] [address] Oct, Dysthymia F34.1 and PTSD (post-traumatic stress disorder) F43.10 [facility] [id number][place] [id number] Oct, BMI 45.0-49.9, adult Z68.42 ; Dysthymia F34.1 ; PTSD (post-traumatic stress disorder) F43.10 and Infective urethritis N34.2 [facility] [address] [id number] [id number] Oct, Dysthymia F34.1 and PTSD (post-traumatic stress disorder) F43.10 [facility] [place] [address] [id number], [place] [id number] Sep, Dysthymia F34.1 and PTSD (post-traumatic stress disorder) F43.10 [facility] [address] [facility] [id number], [place] [address]368[address] Sep, BMI 45.0-49.9, adult Z68.42 and Mood disorder F39 [facility] [id number], [place] [id number] Sep, [facility] [place] [address] [place] [address] AVE [id number], [place] [id number] Sep, Dysthymia F34.1 [facility] [address] [place] [id number], [place] [address]2568 Sep, Mood disorder F39 [facility] [place] [address] [id number], [place] [id number] August, Dysthymia F34.1 [facility] [id number], [place] [address] August, Dysthymia F34.1 ; Chronic airway obstruction, not elsewhere classified J44.9 ; Back pain with left-sided radiculopathy M54.10 and BMI 45.0-49.9, adult Z68.42 [facility] [address] [id number], [place] [id number] Jul, Urinary tract infection without hematuria, site unspecified N39.0 and Fatigue, unspecified type R53.83 [address]00565100[place] [address] Jul, Chronic airway obstruction, not elsewhere classified J44.[address] [place] [address] [id number] Jul, BMI 45.0-49.9, adult Z68.42 and Infective urethritis N34.[address] [place] [address] [id number] Jul, [facility] [place] [id number] [place] [address] [id number] Jun, Back pain with left-sided radiculopathy M54.10 [facility] [address] [place] [address] [id number] May, Chronic airway obstruction, not elsewhere classified J44.9 and Encounter for immunization Z23 [address]00565100[place] [address] Apr, BMI 45.0-49.9, adult Z68.42 ; Back pain with left-sided radiculopathy M54.10 ; Chronic airway obstruction, not elsewhere classified J44.9 and Dysthymia F34.1 [address]00565100[place] [address] Mar, Sciatica of left side M54.32 ; Back pain with left-sided radiculopathy M54.10 and Hereditary and idiopathic neuropathy, 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 [address]00565100[place] [address] Mar, Flank pain R10.9 ; Urinary urgency R39.15 and Chronic airway obstruction, not elsewhere classified J44.9 [facility] [address] [id number], [place] [address] Mar, Dysthymia F34.1 [place] [address] [facility] [id number], [place] [id number] Feb, [facility] [address]00565100[place] [address] Feb, [facility] [id number] [place] [address] [id number] Feb, Hematuria, unspecified type R31.9 ; Kidney stone N20.0 and BMI 40.0-44.9, adult Z68.41 [facility] [address] [place], [place] [address]44T63201927VAUN[place] [address] Feb, [facility] [address] [address] [id number], [place] [id number] Feb, [facility] [id number] [place] [address] [id number] Feb, [facility] [id number] [place] [address] [id number] Feb, Dysthymia F34.1 ; Encounter for immunization Z23 ; Acute nasopharyngitis J00 ; Chronic rhinitis J31.0 and Chronic airway obstruction, not elsewhere classified J44.9 [facility] [address]00565100[place] [address] Jan, Well woman exam Z01.419 ; Left breast lump N63.20 and BMI 40.0-44.9, adult Z68.41 [facility] [id number], [place] [address]40[address] Jan, Muscle cramps R25.2 [facility] [id number], [place] [id number] Dec, Dysthymia F34.1 [facility] [id number], [place] [address]44 Dec, Muscle cramps R25.2 [facility] [id number] [place] [address] [id number] Nov, Dysthymia F34.1 [facility] [id number], [place] 050383752 Oct, [facility] [id number] [place] [address] [id number] Oct, Chronic airway obstruction, not elsewhere classified J44.9 ; Moderate single current episode of major depressive disorder F32.1 ; Chronic rhinitis J31.0 and Muscle cramps R25.2 [facility] [address] [place] [address] [id number] [place] [address] [id number] Sep, Acute nasopharyngitis J00 [facility] [address] [address] Jun, Acute exacerbation of chronic obstructive pulmonary disease (COPD) J44.1 [facility] [address] [id number] Jun, Acute nasopharyngitis J00 [facility] [address] [id number] Jun, [facility] [address] [id number] [place] [address] Apr, [facility] [address] [id number] Mar, Acute nasopharyngitis J00 [facility] [address] [place] [address] [id number] [place] [address] [id number] Mar, [facility] [address] [id number] Mar, [facility] [address] [id number] Feb, CAP (community acquired pneumonia) J18.9 and Chronic rhinitis J31.0 [facility] [address] [id number] Feb, CAP (community acquired pneumonia) J18.9 [facility] [address] [id number] [place] [address] [id number] Feb, CAP (community acquired pneumonia) J18.9 [facility] [address] [id number] [place] [address] [id number] Feb, [facility] [address] [place] [id number] [place] [address] [id number] Jan, Mood disorder F39 [facility] [address]00565100[place] [address] Jan, [facility] [id number] [place] [address] [id number] Jan, Lung nodule R91.1 [facility] [id number] [place] [address] [id number] Jan, Lung nodule R91.1 [facility] [address] [place] [address] [id number] [place] [address] [id number] Jan, Lung nodule R91.1 [facility] [id number] [place] [address] [id number] Jan, Lung nodule R91.1 [facility] [address] [address] [id number] [place] [address] [id number] Jan, [facility] [id number] [place] [address] [id number] Nov, Overactive bladder N32.81 ; Chronic airway obstruction, not elsewhere classified J44.9 and Essential hypertension I10 [facility] [id number] [place] [address] [id number] Oct, [facility] [address] [address] [id number] [place] [address] [id number] Oct, Acute non-recurrent sinusitis, unspecified location J01.90 ; Cough R05 and Tobacco dependence F17.200 [place] [id number] [place] [address] [id number] Sep, Overactive bladder N32.81 and Chronic airway obstruction, not elsewhere classified J44.9 [facility] [id number], [place] [id number] August, Chronic airway obstruction, not elsewhere classified J44.9 ; Mood disorder F39 and Urinary frequency R35.0 [address] [place] [address] [id number] August, [facility] [id number] [place] [address] [id number] Jul, Lung nodule R91.1 ; Chronic airway obstruction, not elsewhere classified J44.9 and Urinary tract infection without hematuria, site unspecified N39.0 [place] [address] [address]00565100[place] [id number] Jul, Lung nodule R91.1 [facility] [place] [id number] [place] [address] [id number] Jul, [facility] [id number] [place] [address] [id number] Jul, Diarrhea R19.7 and Lung nodule R91.1 [facility] [place] [id number] [place] [address] [id number] Apr, Upper respiratory tract infection, unspecified type J06.9 and COPD exacerbation J44.1 [facility] [place] [id number] [place] [address] [id number] Mar, [facility] [place] [id number] [place] [address] [id number] Feb, Mood disorder F39 and Essential hypertension I10 [facility] [place] [id number] [place] [address] [id number] Jan, Essential hypertension I10 ; Mood disorder F39 ; Chronic airway obstruction, not elsewhere classified J44.9 and Chronic rhinitis J31.0 [facility] [address] [place] [address] [id number] Jan, [place] [address]00565100[place] [id number] Jan, [facility] [place] [address] [facility] [id number] [id number] Jan, [facility] [address] [place] [address] [id number] Jan, [facility] [place] [id number] [id number] Dec, Bronchitis [address] [place] [address] [id number] Dec, [facility] [address]00565100[place], [place] [id number] Sep, Rhinitis 472.0 [facility] [id number] [place] [id number]- [address] Jul, [facility] [place] [facility] [address] [id number] [place] [address] Jul, [facility] [address] [id number] [place] [id number] Jun, [facility] [place] [facility] [address] [facility] [id number] [place] [address] Jun, [facility] [place] [facility] [address] [facility] [id number] [place] [address] Jun, [facility] [address] [id number] [place] [id number] May, [facility] [place] [facility] [address] [id number] [place] [address] May, [facility] [address] [id number], [place] [id number] Apr, [facility] [place] [facility] [address] [facility] [id number] [address] Apr, [facility] [address] [id number], [place] [id number] Mar, [facility] [place] [facility] [address] [id number] [address] Mar, [facility] [address] [id number], [place] [id number] Mar, [facility] [place] [facility] [address] [id number], [place] [address] Mar, [facility] [address] [id number], [place] [id number] Mar, [facility] [place] [facility] [address] [id number] [address] Mar, [facility] [address] [id number], [place] [id number] Mar, [facility] [place] [facility] [address] [facility] [id number], [place] [address] Mar, [facility] [address] [id number], [place] [id number] Feb, [facility] [place] [facility] [address] [facility] [id number] [place] [address]- [address] Feb, [facility] [address] [facility] [id number] [place] [id number] Feb, [facility] [place] [facility] [address] [facility] [id number] [place] [address] Feb, [facility] [address] [facility] [id number] [place] [id number] Feb, [facility] [place] [facility] [address] [facility] [id number] [place] [address]- [address] Feb, [facility] [address] [facility] [id number] [place] [id number] Jan, [facility] [place] [facility] [address] [place] [address]- [address] Jan, [facility] [address] [place] [id number], [place] [id number] Jan, [facility] [place] [facility] [address] [facility] [id number][place] [address] Jan, [facility] [address] [place] [id number], [place] [id number] Sep, [facility] [place] [facility] [address] [facility] [id number][place] [address]- [address] Sep, [facility] [place] [facility] [address] [facility] [id number][place] [address]- [address] Sep, [facility] [address] [facility] [id number], [place] [id number] Sep, [facility] [place] [facility] [address] [facility] [id number] [place] [address]- 7[address] Sep, [facility] [place] [facility] [address] [facility] [id number] [place] [address]- 477[address] Sep, [facility] [address] [facility] [id number] [place] [id number] Jul, [facility] [place] [facility] [address] [place] [address] [id number] [address] Jul, [facility] [address] [id number] [place] [id number] Jun, [facility] [place] [facility] [address] [facility] [id number], [place] [address] Jun, [facility] [address] [facility] [id number] [place] [id number] Jun, [facility] [place] [facility] [address] [facility] [id number], [place] [address] Jun, [facility] [address] [facility] [id number] [place] [id number] Apr, [facility] [place] [facility] [address] [facility] [id number], [place] [address]- [address] Apr, [facility] [address] [place] [id number] [place] [id number] Mar, [facility] [place] [facility] [address] [facility] [id number][place] [address] Mar, [facility] [address] [facility] [id number] [place] [id number] Mar, [facility] [place] [facility] [address] [facility] [id number], [place] [address] Mar, [facility] [address] [place] [id number], [place] [id number] Feb, [facility] [place] [facility] [address] [facility] [id number], [place] [address]- [address] Feb, [facility] [address] [facility] [id number], [place] [id number] Jan, [facility] [place] [facility] [address] [facility] [id number], [place] [address]- [address] Jan, [facility] [address] [facility] [id number] [place] [id number] 30 Dec, 2012 [facility] [place] [facility] [address] [facility] [id number][place] [address]- [address] 16 Dec, 2012 [facility] [address] [id number] [place] [id number] Dec, [facility] [address] [id number] [place] [id number] Dec, [facility] [address] [id number] [place] [id number] Oct, [facility] [address] [facility] [id number] [place] [address]- [address] Oct, [facility] [address] [facility] [id number][place] [address]- [address] Oct, [facility] [address] [id number] [place] [id number] Oct, [facility] [address] [id number] [place] [id number] Sep, [facility] [address] [id number] [place] [id number] August, [facility] [address] [id number] [place] [id number] August, [facility] [address] [id number] [place] [id number] August, [facility] [address] [id number] [place] [id number] Jul, [facility] [address] [facility] [id number] [place] [address]- [address] Jul, [facility] [address] [id number] [place] [id number] Jul, [facility] [address] [id number] [place] [id number] Jun, [facility] [place] [facility] [address] [id number] [place] [address]- 6[address] Jun, [facility] [address] [id number] [place] [id number] Jun, [facility] [address] [id number] [place] [id number] Jun, [facility] [address] [id number] [place] [id number] Jun, [facility] [address] [id number][place] [id number] Jun, [facility] [address] [id number], [place] [id number] Jun, [facility] [id number], [place] [id number] Feb, [facility] [address] [id number] [address]- [address] Feb, [facility] [address] [id number], [place] [id number] Jan, [facility] [id number], [place] [id number] Nov, [facility] [id number] [address] [id number] Oct, [facility] [id number] [address] [id number] Oct, [facility] [id number], [place] [id number] Sep, [place] [id number] [place] [address]- 2546 Mar, [place] [address] [address] [id number] [place] [address] 24[address] 2546 Nov, IMMUNIZATIONS No Known Immunizations SOCIAL HISTORY Never Assessed REASON FOR VISIT Hospital f/u vertigo, UTI, [id number] MA PLAN OF CARE Activity Details Follow Up prn Reason: VITAL SIGNS Height 67 in 2017-07-14 Weight 296 lbs 2017-07-14 Temperature 97.4 degrees Fahrenheit 2017-07-14 Heart Rate 91 bpm 2017-07-14 Respiratory Rate 20 2017-07-14 BMI 46.36 kg/m2 2017-07-14 Blood pressure systolic 142 mmHg 2017-07-14 Blood pressure diastolic 94 mmHg 2017-07-14 MEDICATIONS Medication Instructions Dosage Frequency Start Date End Date Duration Status Lisinopril 10 mg 1 tablet Once a day Orally Active Albuterol Sulfate HFA cfc free 90 mcg/inh Inhalation every 4 hrs 2 puffs as needed 4h 15 Dec, 2014 Active Spiriva HandiHaler 18 MCG Inhalation Once a day 1 capsule 24h Active Flonase 50 mcg/act Nasally Once a day 2 spray in each nostril 24h 23 Apr, 2013 Active Paroxetine HCl 30 MG Orally BID one tab 12h Active Ondansetron 4 MG Orally every 4 hrs 1 tablet on the tongue and allow to dissolve 4h Feb, 30 day(s) Not-Taking Methocarbamol 500 mg Orally 3 times a day 1 tablets 8h Oct, Active Gabapentin 300 MG Orally 3 times a day 1 capsule 8h Active Zyrtec Allergy 10 mg Orally Once a day 1 tablet 24h Active Pantoprazole Sodium 40 mg Orally Once a day 1 tablet 24h Active Hydrocodone-Acetaminophen 5-325 MG Orally every 6 hrs 1 tablet as needed 6h Mar, 10 days Unknown Symbicort 80-4.5 MCG/ACT Inhalation Twice a day 2 puffs 12h Jul, Active Tamsulosin HCl 0.4 MG Orally Once a day 1 capsule 24h Feb, 14 days Unknown Duloxetine HCl 30 MG Orally Twice a day 1 capsule 12h Nov, 30 day(s) Unknown RESULTS No Results PROCEDURES No Known procedures [...] Rehabilitation for pneumonia 2012 Hospitalization History [facility] x 3 days for stomach flu 07/24/15 Hospitalization History [facility]ia Toney for vomiting-given mag citrate for "blockage" 03/09/2016
--- OUTSIDE RECORDS SUMMARY | 2018-04-15 01:26 | XMS REPORT ---
Author Author KATERINA SMITH [facility] Address [address] [place] [address] Care Team Providers Care Heavy Equipment Sales Associate Name Role Phone SMITHKATERINA Unavailable PROBLEMS Type Condition ICD9-CM Code EGF08-CN Code Onset Dates Condition Status SNOMED Code Problem CAP (community acquired pneumonia) J18.9 Active 456193533 Problem Moderate single current episode of major depressive disorder F32.1 Active 85447929 Problem Acute exacerbation of chronic obstructive pulmonary disease (COPD) J44.1 Active 634025772 Problem PTSD (post-traumatic stress disorder) F43.10 Active 47917991 Problem Hereditary and idiopathic neuropathy, 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 Active 06127939 Problem Kidney stone N20.0 Active 58062357 Problem Dysthymia F34.1 Active 23494276 Problem Back pain with left-sided radiculopathy M54.10 Active 158453891 Problem Sciatica of left side M54.32 Active 01086988 Problem Female stress incontinence 625.6 Active 70381687 Problem Nondependent tobacco use disorder 305.1 Active 594896636 Problem Essential hypertension I10 Active 73378192 Problem Chronic airway obstruction, not elsewhere classified J44.9 Active 38570147 Problem Chronic rhinitis J31.0 Active 22693152 Problem Lung nodule R91.1 Active 645468264 Problem Mood disorder F39 Active 07949448 Problem Overactive bladder N32.81 Active 273371680 ALLERGIES No Information ENCOUNTERS Encounter Location Date Diagnosis [facility] [address] [id number] [place] [address] Nov, [facility] [address] [facility] [id number][place] [id number] Nov, [facility] [address] [facility] [id number][place] [id number] Nov, [facility] [address] [id number][place] [id number] Oct, [facility] [address] [id number], [place] [address] Oct, Dysthymia F34.1 and PTSD (post-traumatic stress disorder) F43.10 [facility] [id number], [place] [id number] Oct, BMI 45.0-49.9, adult Z68.42 ; Dysthymia F34.1 ; PTSD (post-traumatic stress disorder) F43.10 and Infective urethritis N34.2 [facility] [address] [id number][place] [id number] Oct, Dysthymia F34.1 and PTSD (post-traumatic stress disorder) F43.10 [facility] [address] [id number] [place] [address] [id number] Sep, Dysthymia F34.1 and PTSD (post-traumatic stress disorder) F43.10 [address] [place] [address] [id number] Sep, BMI 45.0-49.9, adult Z68.42 and Mood disorder F39 [facility] [id number] [place] [address] [id number] Sep, [facility] [address] [facility] [id number] [place] [address] [id number] Sep, Dysthymia F34.1 [facility] [address] [place] [address] [id number] Sep, Mood disorder F39 [address] [id number] [place] [address] [id number] August, Dysthymia F34.1 [facility] [address] [place] [address] [id number] August, Dysthymia F34.1 ; Chronic airway obstruction, not elsewhere classified J44.9 ; Back pain with left-sided radiculopathy M54.10 and BMI 45.0-49.9, adult Z68.42 [facility] [id number] [place] [address] [id number] Jul, Urinary tract infection without hematuria, site unspecified N39.0 and Fatigue, unspecified type R53.83 [address]00565100[place] [id number] Jul, Chronic airway obstruction, not elsewhere classified J44.9 [address]00565100[place] [address] Jul, BMI 45.0-49.9, adult Z68.42 and Infective urethritis N34.[address] [place] [address] [id number] Jul, [address] [place] [address] [id number] Jun, Back pain with left-sided radiculopathy M54.10 [address] [place] [address] [id number] May, Chronic airway obstruction, not elsewhere classified J44.9 and Encounter for immunization Z23 [address]00565[address] [id number] Apr, BMI 45.0-49.9, adult Z68.42 ; Back pain with left-sided radiculopathy M54.10 ; Chronic airway obstruction, not elsewhere classified J44.9 and Dysthymia F34.1 [address]00565100[place] [id number] Mar, Sciatica of left side M54.32 ; Back pain with left-sided radiculopathy M54.10 and Hereditary and idiopathic neuropathy, 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 [address]00565100[place] [id number] Mar, Flank pain R10.9 ; Urinary urgency R39.15 and Chronic airway obstruction, not elsewhere classified J44.9 [address] [id number] [id number] Mar, Dysthymia F34.1 [facility] [address] [facility] [id number], [place] [id number] Feb, [facility] [address]00565100[place] [address] Feb, [facility] [id number] [place] [address] [id number] Feb, Hematuria, unspecified type R31.9 ; Kidney stone N20.0 and BMI 40.0-44.9, adult Z68.41 [facility] [address] [place], [place] [id number] [place] [address] Feb, [facility] [address] [id number][place] [id number] Feb, [facility] [id number] [place] [address] [id number] Feb, [facility] [id number] [place] [address] [id number] Feb, Dysthymia F34.1 ; Encounter for immunization Z23 ; Acute nasopharyngitis J00 ; Chronic rhinitis J31.0 and Chronic airway obstruction, not elsewhere classified J44.9 [facility] [address]00565100[place] [address] Jan, Well woman exam Z01.419 ; Left breast lump N63.20 and BMI 40.0-44.9, adult Z68.41 [facility] [id number] [place] [address] [id number] Jan, Muscle cramps R25.2 [facility] [id number] [place] [address] [id number] Dec, Dysthymia F34.1 [facility] [id number] [place] [address] [phone] Dec, Muscle cramps R25.2 [facility] [id number] [place] [address] [id number] Nov, Dysthymia F34.1 [facility] [id number] [place] [address] [id number] Oct, [facility] [id number] [place] [address] [id number] Oct, Chronic airway obstruction, not elsewhere classified J44.9 ; Moderate single current episode of major depressive disorder F32.1 ; Chronic rhinitis J31.0 and Muscle cramps R25.2 [facility] [address] [id number] Sep, Acute nasopharyngitis J00 [facility] [id number] [place] [address] Jun, Acute exacerbation of chronic obstructive pulmonary disease (COPD) J44.1 [facility] [id number] [place] [address] [id number] Jun, Acute nasopharyngitis J00 [facility] [id number] [place] [address] [id number] Jun, [facility] [id number] [place] [address] [id number] [address] Apr, [facility] [id number] [place] [address] [id number] Mar, Acute nasopharyngitis J00 [facility] [id number] [place] [address] [id number] Mar, [facility] [id number] [place] [address] [id number] Mar, [facility] [address] [id number] Feb, CAP (community acquired pneumonia) J18.9 and Chronic rhinitis J31.0 [facility] [address] [id number] Feb, CAP (community acquired pneumonia) J18.9 [facility] [id number] [place] [address] [id number] Feb, CAP (community acquired pneumonia) J18.9 [facility] [id number] [place] [address] [id number] Feb, [facility] [address] [id number] Jan, Mood disorder F39 [facility] [id number] [place] [address] Jan, [facility] [id number] [place] [address] [id number] Jan, Lung nodule R91.1 [place] [address] [id number] Jan, Lung nodule R91.1 [place] [id number] [place] [address] [id number] Jan, Lung nodule R91.[address] [id number] Jan, Lung nodule R91.[address] [id number] Jan, [address] [id number] Nov, Overactive bladder N32.81 ; Chronic airway obstruction, not elsewhere classified J44.9 and Essential hypertension I10 [address] [id number] Oct, [address] [id number] Oct, Acute non-recurrent sinusitis, unspecified location J01.90 ; Cough R05 and Tobacco dependence F17.200 [id number] [place] [address] [id number] Sep, Overactive bladder N32.81 and Chronic airway obstruction, not elsewhere classified J44.9 [place] [id number] [place] [address] [id number] August, Chronic airway obstruction, not elsewhere classified J44.9 ; Mood disorder F39 and Urinary frequency R35.0 [id number] [place] [address] [id number] August, [address] [id number] Jul, Lung nodule R91.1 ; Chronic airway obstruction, not elsewhere classified J44.9 and Urinary tract infection without hematuria, site unspecified N39.0 [place] [id number] [place] [address] [id number] Jul, Lung nodule R91.1 [facility] [id number], [place] [id number] Jul, [facility] [id number] [place] [address] [id number] Jul, Diarrhea R19.7 and Lung nodule R91.1 [facility] [id number] [place] [address] [id number] Apr, Upper respiratory tract infection, unspecified type J06.9 and COPD exacerbation J44.1 [facility] [address] [place] [address] [id number] Mar, [facility] [id number] [place] [address] [id number] Feb, Mood disorder F39 and Essential hypertension I10 [facility] [address] [place] [address] [id number] Jan, Essential hypertension I10 ; Mood disorder F39 ; Chronic airway obstruction, not elsewhere classified J44.9 and Chronic rhinitis J31.0 [facility] [address]00565100[place], [place] [id number] Jan, [facility] [id number] [place] [id number] Jan, [facility] [place] [address] [address] [facility] [id number], [place] [id number] Jan, [facility] [address] [id number], [place] [id number] Jan, [facility] [address]00565100[place], [place] [id number] Dec, [facility] [address] [facility] [id number] [place] [id number] Dec, [facility] [address] [place] [address] [id number] Sep, Rhinitis 472.0 [facility] [address]00565100[place] [address] Jul, [facility] [id number] [place] [address] Jul, [facility] [address] [facility] [id number] [place] [id number] Jun, [facility] [place] [facility] [address] [facility] [id number] [address] Jun, [facility] [place] [address] [facility] [id number] [place] [address] Jun, [facility] [address] [facility] [id number], [place] [id number] May, [facility] [place] [facility] [address] [facility] [id number] [place] [address] May, [facility] [address] [facility] [id number], [place] [id number] Apr, [facility] [place] [facility] [address]00565100[place] [address] Apr, [facility] [address] [facility] [id number], [place] [id number] Mar, [facility] [place] [facility] [address] [id number] [address] Mar, [facility] [address] [facility] [id number], [place] [id number] Mar, [facility] [place] [facility] [address] [id number] [address] Mar, [facility] [address] [facility] [id number], [place] [id number] Mar, [facility] [place] [facility] [address] [facility] [id number] [place] [address] Mar, [facility] [address] [facility] [id number], [place] [id number] Mar, [facility] [place] [facility] [address] [facility] [id number] [place] [address]- 2[address] Mar, [facility] [address] [facility] [id number], [place] [id number] Feb, [facility] [place] [facility] [address] [facility] [id number] [place] [address]- [address] Feb, [facility] [address] [facility] [id number] [place] [id number] Feb, [facility] [place] [facility] [address] [facility] [id number] [place] [address]- [address] Feb, [facility] [address] [facility] [id number] [place] [id number] Feb, [facility] [place] [facility] [address] [facility] [id number] [place] [address]- [address] Feb, [facility] [address] [facility] [id number] [place] [id number] Jan, [facility] [place] [facility] [address] [facility] [id number] [address]- [address] Jan, [facility] [address] [id number] [place] [id number] Jan, [facility] [place] [facility] [address] [facility] [id number] [place] [address] Jan, [facility] [address] [facility] [id number] [place] [id number] Sep, [facility] [place] [facility] [address] [facility] [id number] [place] [address]- [address] Sep, [facility] [place] [facility] [address] [facility] [id number] [place] [address]- [address] Sep, [facility] [address] [facility] [id number], [place] [id number] Sep, [facility] [place] [facility] [address] [facility] [id number] [place] [address]- [address] Sep, [facility] [place] [facility] [address] [facility] [id number] [place] [address] Sep, [facility] [address] [facility] [id number] [place] [id number] Jul, [facility] [place] [facility] [address] [facility] [id number] [place] [address]- [address] Jul, [facility] [address] [id number] [place] [id number] Jun, [facility] [address] [facility] [id number] [place] [address]- 8[address] Jun, [facility] [address] [facility] [id number], [place] [id number] Jun, [facility] [address] [facility] [id number] [place] [address]- [address] Jun, [facility] [address] [facility] [id number], [place] [id number] Apr, [facility] [address] [facility] [id number] [place] [address]- [address] Apr, [facility] [address] [facility] [id number], [place] [id number] Mar, [facility] [place] [facility] [address]00565100[place] [address]- [address] Mar, [facility] [address] [id number], [place] [id number] Mar, [facility] [place] [facility] [address] [id number]38[place]- 74[address] Mar, [facility] [address] [id number], [place] [id number] Feb, [facility] [place] [facility] [address]00565100[place] [address]- 5[address] Feb, [facility] [address] [id number], [place] [id number] Jan, [facility] [place] [facility] [address] [facility] [id number] [place] [address]- [address] Jan, [facility] [address] [facility] [id number], [place] [id number] 30 Dec, 2012 [facility] [place] [facility] [address] [facility] [id number] [place] [address]- [address] 16 Dec, 2012 [facility] [address] [id number], [place] 919242571 Dec, [facility] [address] [id number] [place] [id number] Dec, [facility] [address] [id number] [place] [id number] Oct, [facility] [place] [facility] [address] [facility] [id number] [place] [address]- 2546 Oct, [facility] [address] [facility] [id number] [place] [address]- [address]46 Oct, [facility] [address] [id number] [place] [id number] Oct, [facility] [address] [id number] [place] 820062136 Sep, [facility] [address] [id number] [place] [id number] August, [facility] [address] [id number] [place] 066856500 August, [facility] [address] [id number] [place] [id number] August, [facility] [address] [id number] [place] [id number] Jul, [facility] [address] [facility] [id number] [place] [address]- [address] Jul, [facility] [address] [id number] [place] [id number] Jul, [facility] [address] [id number], [place] [id number] Jun, [facility] [place] [facility] [address] [facility] [id number] [place] [address]- 2546 Jun, [facility] [address] [id number] [place] [id number] Jun, [facility] [address] [id number] [place] [id number] Jun, [facility] [address] [id number] [place] [id number] Jun, [facility] [address] [id number] [place] 142081910 Jun, [facility] [address] [id number], [place] [address]46 Jun, [facility] [id number], [place] [address] Feb, [facility] [address]00565100[place] [address]- 25[address] Feb, [facility] [id number], [place] [address] Jan, [facility] [id number], [place] 088455939 Nov, [facility] [id number] [place] [address] [id number] Oct, [facility] [id number] [place] [address] [id number] Oct, [facility] [address]00565100[place], [place] [id number] Sep, [facility] [address] [place] [address]- 2546 Mar, [facility] [id number] [place] [address] 91861- 2546 Nov, IMMUNIZATIONS No Known Immunizations SOCIAL HISTORY Never Assessed REASON FOR VISIT Medication refill request PLAN OF CARE VITAL SIGNS MEDICATIONS Medication Instructions Dosage Frequency Start Date End Date Duration Status Pantoprazole Sodium 40 mg Orally Once a [...] Surgical History cholecystectomy 1979 Hospitalization History [facility] for pneumonia 2012 Hospitalization History [facility] x 3 days for stomach flu 07/24/15 Hospitalization History [facility] for [facility]-given mag citrate for "blockage" 03/09/2016
--- OUTSIDE RECORDS SUMMARY | 2018-04-15 01:27 | XMS REPORT ---
Author Author KATERINA SMITH [facility] Address [address] [place] [address] Care Team Providers Care Audio Experience Expert Name Role Phone KATERINA SMITH Unavailable PROBLEMS Type Condition ICD9-CM Code SSE63-TR Code Onset Dates Condition Status SNOMED Code Problem Chronic airway obstruction, not elsewhere classified J44.9 Active 05013372 Problem Chronic rhinitis J31.0 Active 84738368 Problem Mood disorder F39 Active 41732852 Problem Dysthymia F34.1 Active 23803818 Problem Moderate single current episode of major depressive disorder F32.1 Active 48307873 Problem Overactive bladder N32.81 Active 823331239 Problem Lung nodule R91.1 Active 754351649 Problem Acute exacerbation of chronic obstructive pulmonary disease (COPD) J44.1 Active 765663022 Problem CAP (community acquired pneumonia) J18.9 Active 217117139 Problem Female stress incontinence 625.6 Active 10800779 Problem Chronic airway obstruction, not elsewhere classified 496 Active 24734065 Problem Lumbago 724.2 Active 757502853 Problem Nondependent tobacco use disorder 305.1 Active 936033310 Problem Sciatica 724.3 Active 07552510 Problem Essential hypertension I10 Active 30186934 ALLERGIES No Information SOCIAL HISTORY Never Assessed PLAN OF CARE VITAL SIGNS MEDICATIONS Unknown Medications RESULTS No Results PROCEDURES No Known procedures IMMUNIZATIONS No Known Immunizations MEDICAL (GENERAL) HISTORY Type Description Date Medical [...]
--- OUTSIDE RECORDS SUMMARY | 2018-04-15 01:27 | XMS REPORT ---
Author Author KATERINA SMITH [facility] Address [address] [place] [address] Care Team Providers Care Greenhouse Specialist Name Role Phone KATERINA SMITH Unavailable PROBLEMS Type Condition ICD9-CM Code AWT59-CV Code Onset Dates Condition Status SNOMED Code Problem CAP (community acquired pneumonia) J18.9 Active 981441635 Problem Moderate single current episode of major depressive disorder F32.1 Active 05617749 Problem Acute exacerbation of chronic obstructive pulmonary disease (COPD) J44.1 Active 933409805 Problem PTSD (post-traumatic stress disorder) F43.10 Active 44647310 Problem Hereditary and idiopathic neuropathy, 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 Active 99996811 Problem Kidney stone N20.0 Active 81903611 Problem Dysthymia F34.1 Active 67084796 Problem Back pain with left-sided radiculopathy M54.10 Active 107629849 Problem Sciatica of left side M54.32 Active 26803914 Problem Female stress incontinence 625.6 Active 69769129 Problem Nondependent tobacco use disorder 305.1 Active 339734558 Problem Essential hypertension I10 Active 74588632 Problem Chronic airway obstruction, not elsewhere classified J44.9 Active 10475981 Problem Chronic rhinitis J31.0 Active 71871337 Problem Lung nodule R91.1 Active 876873241 Problem Mood disorder F39 Active 69205449 Problem Overactive bladder N32.81 Active 156247963 ALLERGIES No Information ENCOUNTERS Encounter Location Date Diagnosis [facility] [address] [facility] [id number] [place] [id number] Oct, [facility] [address] [facility] [id number][place] [id number] Oct, [facility] [address] [id number] [id number] Oct, Dysthymia F34.1 and PTSD (post-traumatic stress disorder) F43.10 [facility] [address] [id number], [place] [id number] Sep, Dysthymia F34.1 and PTSD (post-traumatic stress disorder) F43.10 [facility] [address]00565[place] [id number] Sep, BMI 45.0-49.9, adult Z68.42 and Mood disorder F39 [facility] [id number] [place] [address] [id number] Sep, [facility] [address] [facility] [address] [id number], [place] [id number] Sep, Dysthymia F34.1 [facility] [place] [id number] [place] [address] [id number] Sep, Mood disorder F39 [facility] [address] [place] [address] AVE [id number][place] [id number] August, [facility] F34.[facility] [id number] [place] [address] [id number] August, Dysthymia F34.1 ; Chronic airway obstruction, not elsewhere classified J44.9 ; Back pain with left-sided radiculopathy M54.10 and BMI 45.0-49.9, adult Z68.42 [facility] [address] [place] [address] [id number] Jul, Urinary tract infection without hematuria, site unspecified N39.0 and Fatigue, unspecified type R53.83 [facility] [address]00565100[place] [id number] Jul, Chronic airway obstruction, not elsewhere classified J44.9 [facility] [address] [place] [address] [id number] Jul, BMI 45.0-49.9, adult Z68.42 [address]34.2 [facility] [id number] [place] [address] [id number] Jul, [facility] [place] [id number] [place] [address] [id number] Jun, Back pain with left-sided radiculopathy M54.10 [facility] [place] [id number], [place] [id number] May, Chronic airway obstruction, not elsewhere classified J44.9 and Encounter for immunization Z23 [facility] [place] [id number], [place] [id number] Apr, BMI 45.0-49.9, adult Z68.42 ; Back pain with left-sided radiculopathy M54.10 ; Chronic airway obstruction, not elsewhere classified J44.[address] [facility] [place] [id number] [place] [address] [id number] Mar, Sciatica of left side M54.32 ; Back pain with left-sided radiculopathy M54.10 and Hereditary and idiopathic neuropathy, 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 [facility] [id number] [place] [address] [id number] Mar, Flank pain R10.9 ; Urinary urgency R39.15 and Chronic airway obstruction, not elsewhere classified J44.9 [facility] [id number], [place] [id number] Mar, Dysthymia F34.1 [facility] [address] [id number], [place] [id number] Feb, [facility] [address] [facility] [id number], [place] [address] Feb, [facility] [id number] [place] [address] [id number] Feb, Hematuria, unspecified type R31.9 ; Kidney stone N20.0 and BMI 40.0-44.9, adult Z68.41 [facility] [address] [place], [place] [address] Feb, [facility] [address] [id number], [place] [id number] Feb, [facility] [address] [place] [address] [id number] [place] [address] [id number] Feb, [facility] [address] [place] [address] [id number] [place] [address] [id number] Feb, Dysthymia F34.1 ; Encounter for immunization Z23 ; Acute nasopharyngitis J00 ; Chronic rhinitis J31.0 and Chronic airway obstruction, not elsewhere classified J44.9 [facility] [address] [id number] [place] [address] Jan, Well woman exam Z01.419 ; Left breast lump N63.20 and BMI 40.0-44.9, adult Z68.41 [facility] [place] [address] [id number] [place] [address] [id number] Jan, Muscle cramps R25.2 [facility] [place] [address] [id number] Dec, Dysthymia F34.1 [facility] [place] [address] [id number] Dec, Muscle cramps R25.2 [facility] [place] [address] [id number] [place] [address] [id number] Nov, Dysthym[address] F34.1 [facility] [place] [address] [id number] [place] [address] [id number] Oct, [facility] [address] [id number] [place] [address] [id number] Oct, Chronic airway obstruction, not elsewhere classified J44.9 ; Moderate single current episode of major depressive disorder F32.1 ; Chronic rhinitis J31.0 and Muscle cramps R25.2 [facility] [address] [id number] [place] [address] [id number] Sep, Acute nasopharyngitis J00 [facility] [address] [place] [address] Jun, Acute exacerbation of chronic obstructive pulmonary disease (COPD) J44.1 [facility] [address] [place] [id number] [place] [address] [id number] Jun, Acute nasopharyngitis J00 [facility] [address] [place] [id number] [place] [address] [id number] Jun, [facility] [address]00565100[place], [place] [address] Apr, [facility] [id number] [place] [address] [id number] Mar, Acute nasopharyngitis J00 [facility] [id number] [place] [address] [id number] Mar, [facility] [id number] [place] [address] [id number] Mar, [facility] [address] [id number] [place] [address] [id number] Feb, CAP (community acquired pneumonia) J18.9 and Chronic rhinitis J31.0 [facility] [address] [place] [id number] [place] [address] [id number] Feb, CAP (community acquired pneumonia) J18.9 [facility] [id number] [place] [address] [id number] Feb, CAP (community acquired pneumonia) J18.9 [facility] [address] [id number] [place] [address] [id number] Feb, [facility] [id number] [place] [address] [id number] Jan, Mood disorder F39 [facility] [address]00565100[place], [place] [address] Jan, [facility] [id number], [place] [id number] Jan, Lung nodule R91.1 [facility] [address] [id number], [place] [id number] Jan, Lung nodule R91.1 [facility] [id number], [place] [id number] Jan, Lung nodule R91.1 [facility] [id number] [place] [address] [id number] Jan, Lung nodule R91.1 [facility] [id number], [place] [id number] Jan, [facility] [address] [id number] Nov, Overactive bladder N32.81 ; Chronic airway obstruction, not elsewhere classified J44.9 and Essential hypertension I10 [address] [id number] Oct, [address] [id number] Oct, Acute non-recurrent sinusitis, unspecified location J01.90 ; Cough R05 and Tobacco dependence F17.[address] [id number] Sep, Overactive bladder N32.81 and Chronic airway obstruction, not elsewhere classified J44.[address] [id number] August, Chronic airway obstruction, not elsewhere classified J44.9 ; Mood disorder F39 and Urinary frequency R35.[address] [id number] August, [address] [id number] Jul, Lung nodule R91.1 ; Chronic airway obstruction, not elsewhere classified J44.9 and Urinary tract infection without hematuria, site unspecified N39.0 [place] [id number] [place] [address] [id number] Jul, Lung nodule R91.1 [place] [id number] [place] [address] [id number] Jul, [address] [id number] Jul, Diarrhea R19.7 and Lung nodule R91.[address] [id number] Apr, Upper respiratory tract infection, unspecified type J06.9 and COPD exacerbation J44.1 [place] [id number] [place] [address] [id number] Mar, [address] [id number] Feb, Mood disorder F39 and Essential hypertension I10 [facility] [address] [facility] [id number], [place] [id number] Jan, Essential hypertension I10 ; Mood disorder F39 ; Chronic airway obstruction, not elsewhere classified J44.9 and Chronic rhinitis J31.0 [facility] [place] [address] [place] [id number], [place] [id number] Jan, [facility] [id number], [place] [address] Jan, [facility] [address] [id number], [place] [id number] Jan, [facility] [place] [id number], [place] [id number] Jan, [facility] [place] [id number], [place] [id number] Dec, [facility]chitis [address] [facility] [address] [id number], [place] [id number] Dec, [facility] [place] [id number], [place] [id number] Sep, Rhinitis 472.0 [facility] [id number] [place] [address] [id number]- 1499 Jul, [facility] [place] [facility] [address]00565100[place], [place] [address] Jul, [facility] [place] [id number], [place] [id number] Jun, [facility] [place] [facility] [address]00565100[place], [place] [address]- 4028 Jun, [facility] [place] [facility] [address] [place] [address] 15638- 6451 Jun, [facility] [address] [id number], [place] [id number] May, [facility] [place] [facility] [address]00565100[place], [place] [address]- [address] May, [facility] [id number] [place] [id number] Apr, [facility] [place] [facility] [address] [id number] [place] [address]- 8[address] Apr, [facility] [address] [id number], [place] [id number] Mar, [facility] [place] [facility] [address] [facility] [id number], [place] [address]- [address] Mar, [facility] [address] [id number], [place] [id number] Mar, [facility] [place] [facility] [address] [facility] [id number] [place] [address]- 9530 Mar, [facility] [address] [id number], [place] [id number] Mar, [facility] [place] [facility] [address]00565100[place], [place] [address]- 2727 Mar, [facility] [address] [facility] [id number], [place] [id number] Mar, [facility] [place] [facility] [address] [place] [address] [id number] [address]- 1859 Mar, [facility] [address] [facility] [id number], [place] [id number] Feb, [facility] [place] [facility] [address] [address] [id number], [place] [address]- 8223 Feb, [facility] [address] [id number], [place] [id number] Feb, [facility] [place] [facility] [address] [facility] [id number], [place] [address]- [address] Feb, [facility] [address] [id number], [place] [id number] Feb, [facility] [place] [facility] [address] [facility] [id number], [place] 97204212- 3000 Feb, [facility] [address] [id number], [place] [id number] Jan, [facility] [place] [facility] [address] [facility] [id number], [place] [address]- 3[address] Jan, [facility] [address] [id number] [place] [id number] Jan, [facility] [place] [facility] [address] [facility] [id number] [place] [address]- 5396 Jan, [facility] [address] [facility] [id number] [place] [id number] Sep, [facility] [place] [facility] [address] [facility] [id number], [place] [address]- 1526 Sep, [facility] [place] [facility] [address] [facility] [id number] [place] [address]- 5086 Sep, [facility] [address] [facility] [id number] [place] [id number] Sep, [facility] [place] [facility] [address] [facility] [id number], [place] [address]- 6206 Sep, [facility] [place] [facility] [address] [facility] [id number], [place] [address]- 0685 Sep, [facility] [address] [facility] [id number] [place] [id number] Jul, [facility] [place] [facility] [address] [facility] [id number], [place] [address]- 4846 Jul, [facility] [address] [facility] [id number] [place] [id number] Jun, [facility] [place] [facility] [address] [facility] [id number], [place] [address] 2546 Jun, [facility] [address] [facility] [id number], [place] [id number] Jun, [facility] [place] [facility] [address] [facility] [id number] [place] [address] 2546 Jun, [facility] [address] [facility] [id number] [place] [id number] Apr, [facility] [place] [facility] [address] [facility] [id number], [place] [address]- 9956 Apr, [facility] [address] [id number] [place] [id number] Mar, [facility] [address] [facility] [id number], [place] [address]- 7920 Mar, [facility] [address] [id number], [place] [id number] Mar, [facility] [address] [facility] [id number], [place] [address]- 5065 Mar, [facility] [address] [id number], [place] 748291991 Feb, [facility] [address] [facility] [id number], [place] [address]- 8767 Feb, [facility] [address] [id number], [place] 121412734 Jan, [facility] [place] [facility] [address]00565100[place], [place] [address]- 66[address] Jan, [facility] [address] [id number], [place] 782051907 Dec, [facility] [place] [facility] [address] [facility] [id number], [place] [address]- 4018 Dec, [facility] [address] [id number], [place] [id number] Dec, [facility] [address] [id number], [place] 439149349 Dec, [facility] [address] [id number], [place] [id number] Oct, [facility] [place] [facility] [address] [facility] [id number], [place] [address]- 8828 Oct, [facility] [place] [facility] [address] [facility] [id number], [place] [address]- 6113 Oct, [facility] [address] [id number], [place] [id number] Oct, [facility] [address] [id number], [place] 371582197 Sep, [facility] [address] [id number] [place] [id number] August, [facility] [address] [id number] [place] [id number] August, [facility] [address] [id number] [place] [id number] August, [facility] [address] [id number] [place] [id number] Jul, [facility] [address] [facility] [id number], [place] [address] 2542 Jul, [facility] [address] [id number] [place] [id number] Jul, [facility] [address] [id number] [place] [id number] Jun, [facility] [address] [facility] [id number], [place] [address]- 4013 Jun, [facility] [address] [id number] [place] [id number] Jun, [facility] [address] [id number] [place] [id number] Jun, [facility] [address] [id number] [place] [id number] Jun, [facility] [address] [id number] [place] [id number] Jun, [facility] [address] [id number] [place] [id number] Jun, [facility] [address] [id number] [place] [id number] Feb, [facility] [address] [facility] [id number], [place] [address]- 0274 Feb, [facility] [address] [id number] [place] [id number] Jan, [facility] [address] [id number] [place] [id number] Nov, [facility] [address] [id number] [place] [id number] Oct, [facility] [address] [id number] [place] [id number] Oct, [facility] [address] [facility] [id number] [place] [id number] Sep, [facility] [address] [facility] [id number] [place] [address]- 2546 Mar, [facility] [address] [facility] [id number] [place] [address]- 2546 Nov, IMMUNIZATIONS No Known Immunizations SOCIAL HISTORY Never Assessed REASON FOR VISIT Refill request PLAN OF CARE VITAL SIGNS MEDICATIONS Medication Instructions Dosage Frequency Start Date End Date Duration Status Zyrtec Allergy 10 mg Orally Once a day 1 tablet 24h Active Methocarbamol 500 mg Orally 3 times a day 1 tablets 8h Oct, Active RESULTS No Results PROCEDURES No Known procedures INSTRUCTIONS MEDICATIONS ADMINISTERED No Known Medications MEDICAL (GENERAL) HISTORY Type Description Date Medical History hypertension Medical History allergies Medical History chronic obstructive pulmonary disease (COPD) Medical History anxiety Medical History sciatica Medical History acid reflux Medical History Pneumococcal inj (2012) Medical History depression Surgical History cholecystectomy 1979 Hospitalization History [facility] 2012 Hospitalization History [facility] x 3 days for stomach flu 07/24/15 Hospitalization History [facility] for [facility]-given mag citrate for "blockage" 03/09/2016
--- OUTSIDE RECORDS SUMMARY | 2018-04-15 01:27 | XMS REPORT ---
Author Author KATERINA SMITH [facility] Address [address] [place] [address] Care Team Providers Care Qc Manager Name Role Phone KATERINA SMITH Unavailable PROBLEMS Type Condition ICD9-CM Code SLR65-NT Code Onset Dates Condition Status SNOMED Code Problem CAP (community acquired pneumonia) J18.9 Active 967293706 Problem Moderate single current episode of major depressive disorder F32.1 Active 39421685 Problem Acute exacerbation of chronic obstructive pulmonary disease (COPD) J44.1 Active 732044104 Problem PTSD (post-traumatic stress disorder) F43.10 Active 74218138 Problem Hereditary and idiopathic neuropathy, 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 Active 32928657 Problem Kidney stone N20.0 Active 22749244 Problem Dysthymia F34.1 Active 18683983 Problem Back pain with left-sided radiculopathy M54.10 Active 389847939 Problem Sciatica of left side M54.32 Active 52211915 Problem Female stress incontinence 625.6 Active 39895184 Problem Nondependent tobacco use disorder 305.1 Active 101953735 Problem Essential hypertension I10 Active 75892462 Problem Chronic airway obstruction, not elsewhere classified J44.9 Active 57482706 Problem Chronic rhinitis J31.0 Active 12254899 Problem Lung nodule R91.1 Active 612731659 Problem Mood disorder F39 Active 30913324 Problem Overactive bladder N32.81 Active 958310810 ALLERGIES Substance Reaction Event Type Date Status Penicillin V Potassium rash Drug Allergy May, Active Aspirin rash Drug Allergy May, Active ENCOUNTERS Encounter Location Date Diagnosis [facility] [address] [facility] [id number] [place] [address] Nov, [facility] [address] [facility] [id number] [place] [id number] Nov, [facility] [address] [facility] [id number][place] [id number] Oct, Dysthymia F34.1 and PTSD (post-traumatic stress disorder) F43.10 [facility] [id number], [place] [id number] Oct, BMI 45.0-49.9, adult Z68.42 ; Dysthymia F34.1 ; PTSD (post-traumatic stress disorder) F43.10 and Infective urethritis N34.2 [facility] [id number] [place] [address] [id number] Oct, Dysthymia F34.1 and PTSD (post-traumatic stress disorder) F43.10 [facility] [id number] [place] [address] [id number] Sep, Dysthymia F34.1 and PTSD (post-traumatic stress disorder) F43.10 [facility] [place] [id number] [place] [address] [id number] Sep, BMI 45.0-49.9, adult Z68.42 and Mood disorder F39 [facility] [id number] [place] [address] [id number] Sep, [facility] [id number] [place] [address] [id number] Sep, Dysthymia F34.1 [facility] [address] [place] [address] [id number] Sep, Mood disorder F39 [facility] [address] [id number] [place] [phone] August, Dysthymia F34.1 [facility] [id number], [place] [id number] August, Dysthymia F34.1 ; Chronic airway obstruction, not elsewhere classified J44.9 ; Back pain with left-sided radiculopathy M54.10 and BMI 45.0-49.9, adult Z68.42 [facility] [id number], [place] [phone] Jul, Urinary tract infection without hematuria, site unspecified N39.0 and Fatigue, unspecified type R53.83 [facility] [id number], [place] [id number] Jul, Chronic airway obstruction, not elsewhere classified J44.9 [facility] [address]00565100[place] [id number] Jul, BMI 45.0-49.9, adult Z68.42 and Infective urethritis N34.2 [facility] [address] [place] [address] [id number] Jul, [facility] [place] [id number] [place] [address] [id number] Jun, Back pain with left-sided radiculopathy M54.10 [facility] [place] [id number] [place] [address] [id number] May, Chronic airway obstruction, not elsewhere classified J44.9 and Encounter for immunization Z23 [facility] [address] [place] [address] [id number] Apr, BMI 45.0-49.9, adult Z68.42 ; Back pain with left-sided radiculopathy M54.10 ; Chronic airway obstruction, not elsewhere classified J44.9 and Dysthymia F34.1 [facility] [address] [place] [address] [id number] Mar, Sciatica of left side M54.32 ; Back pain with left-sided radiculopathy M54.10 and Hereditary and idiopathic neuropathy, 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 [facility] [address]00565100[place] [id number] Mar, Flank pain R10.9 ; Urinary urgency R39.15 and Chronic airway obstruction, not elsewhere classified J44.9 [facility] [address] [id number], [place] [id number] Mar, Dysthymia F34.1 [facility] [address] [facility] [id number] [place] [phone] Feb, [facility] [address] [facility] [id number], [place] [address] Feb, [address]00565100[place] [id number] Feb, Hematuria, unspecified type R31.9 ; Kidney stone N20.0 and BMI 40.0-44.9, adult Z68.41 [facility] [address] [place], [id number] [address] Feb, [place] [address] [id number] [place] [phone] Feb, [facility] [id number], [place] [id number] Feb, [facility] [id number], [place] [id number] Feb, Dysthymia F34.1 ; Encounter for immunization Z23 ; Acute nasopharyngitis J00 ; Chronic rhinitis J31.0 and Chronic airway obstruction, not elsewhere classified J44.9 [facility] [address]00565100[place], [place] [address] Jan, Well woman exam Z01.419 ; Left breast lump N63.20 and BMI 40.0-44.9, adult Z68.41 [facility] [id number], [place] [id number] Jan, Muscle cramps R25.2 [facility] [id number], [place] [id number] Dec, Dysthymia F34.1 [facility] [id number] [place] [address] [id number] Dec, Muscle cramps R25.2 [facility] [id number], [place] [id number] Nov, Dysthymia F34.1 [facility] [address] [place] [address] [id number] Oct, [facility] [address] [place] [address] [id number] Oct, Chronic airway obstruction, not elsewhere classified J44.9 ; Moderate single current episode of major depressive disorder F32.1 ; Chronic rhinitis J31.0 and Muscle cramps R25.2 [facility] [id number], [place] [id number] Sep, Acute nasopharyngitis J00 [facility] [address]00565100[place], [place] [phone] Jun, Acute exacerbation of chronic obstructive pulmonary disease (COPD) J44.1 [facility] [address] [place] [id number] [place] [address] [id number] Jun, Acute nasopharyngitis J00 [facility] [address] [place] [id number] [place] [address] [id number] Jun, [facility] [id number] [place] [address] Apr, [facility] [address] [place] [id number] [place] [address] [id number] Mar, Acute nasopharyngitis J00 [facility] [address] [place] [id number] [place] [address] [id number] Mar, [facility] [address] [place] [id number] [place] [address] [id number] Mar, [facility] [address] [place] [id number] [place] [address] [id number] Feb, CAP (community acquired pneumonia) J18.9 and Chronic rhinitis J31.0 [facility] [address] [place] [id number] [place] [address] [id number] Feb, CAP (community acquired pneumonia) J18.9 [facility] [address] [place] [id number] [place] [address] [id number] Feb, CAP (community acquired pneumonia) J18.9 [facility] [id number] [place] [address] [id number] Feb, [facility] [address] [place] [id number] [place] [address] [id number] Jan, Mood disorder F39 [facility] [address]00565100[place], [place] [address] Jan, [facility] [address] [place] [id number] [place] [address] [id number] Jan, Lung nodule R91.1 [facility] [id number] [place] [address] [id number] Jan, Lung nodule R91.1 [facility] [address] [id number] Jan, Lung nodule R91.1 [facility] [address] [place] [id number] [place] [address] [id number] Jan, Lung nodule R91.1 [facility] [address] [place] [id number] [place] [address] [id number] Jan, [facility] [address] [id number] Nov, Overactive bladder N32.81 ; Chronic airway obstruction, not elsewhere classified J44.9 and Essential hypertension I10 [facility] [address] [id number] Oct, [address] [id number] Oct, Acute non-recurrent sinusitis, unspecified location J01.90 ; Cough R05 and Tobacco dependence F17.[address] [id number] Sep, Overactive bladder N32.81 and Chronic airway obstruction, not elsewhere classified J44.9 [place] [id number] [place] [address] [id number] August, Chronic airway obstruction, not elsewhere classified J44.9 ; Mood disorder F39 and Urinary frequency R35.0 [place] [id number] [place] [address] [id number] August, [place] [address] [place] [address] [id number] Jul, Lung nodule R91.1 ; Chronic airway obstruction, not elsewhere classified J44.9 and Urinary tract infection without hematuria, site unspecified N39.0 [place] [address] [place] [address] [id number] Jul, Lung nodule R91.[address] [id number] Jul, [facility] [address] [facility] [id number][place] [id number] Jul, Diarrhea R19.7 and Lung nodule R91.1 [facility] [place] [id number], [place] [id number] Apr, Upper respiratory tract infection, unspecified type J06.9 and COPD exacerbation J44.1 [facility] [address]00565100[place] [id number] Mar, [facility] [address] [place] [address] [id number] Feb, Mood disorder F39 and Essential hypertension I10 [facility] [place] [id number] [place] [address] [id number] Jan, Essential hypertension I10 ; Mood disorder F39 ; Chronic airway obstruction, not elsewhere classified J44.9 and Chronic rhinitis J31.0 [facility] [address]00565100[place], [place] [id number] Jan, [place] [id number]00565100[place] [id number] Jan, [facility] [address] [id number] [place] [phone] Jan, [facility] [address] [id number], [place] [id number] Jan, [facility] [place] [id number] [id number] Dec, Bronchitis [address] [place] [address]00565100[place] [id number] Dec, [facility] [place] [id number] [id number] Sep, Rhinitis 472.0 [facility] [address]00565100[place], [place] [address] 14 Jul, 2014 [facility] [address]00565100[place], [place] [address] Jul, [facility] [address] [place] [address] [id number] Jun, [facility] [place] [facility] [address] [facility] [id number] [place] [address]- [address] Jun, [facility] [place] [facility] [address] [facility] [id number][place] [address] Jun, [facility] [address] [id number] [place] [id number] May, [facility] [place] [facility] [address] [facility] [id number], [place] [address] May, [facility] [address] [id number] [place] [id number] Apr, [facility] [place] [facility] [address] [facility] [id number], [place] [address] Apr, [facility] [address] [id number] [place] [id number] Mar, [facility] [place] [facility] [address] [facility] [id number], [place] [address] Mar, [facility] [address] [id number] [place] [id number] Mar, [facility] [place] [facility] [address] [facility] [id number], [place] [address] Mar, [facility] [address] [id number] [place] [id number] Mar, [facility] [place] [facility] [address] [facility] [id number], [place] [address]- [address] Mar, [facility] [address] [id number], [place] [id number] Mar, [facility] [place] [facility] [address] [facility] [id number], [place] [address]- 1336 Mar, [facility] [address] [id number] [place] [id number] Feb, [facility] [place] [facility] [address] [facility] [id number][place] [address]- [address] Feb, [facility] [address] [id number] [place] [id number] Feb, [facility] [place] [facility] [address] [facility] [id number], [place] [address] 6[address] Feb, [facility] [address] [facility] [id number], [place] [id number] Feb, [facility] [place] [facility] [address] [facility] [id number], [place] [address]- 37[address] Feb, [facility] [address] [facility] [id number], [place] [id number] Jan, [facility] [place] [facility] [address] [facility] [id number], [place] [address]- 4[address] Jan, [facility] [address] [facility] [id number], [place] [id number] Jan, [facility] [place] [facility] [address]00565100[place], [place] [address]- 269[address] Jan, [facility] [address] [facility] [id number], [place] [id number] Sep, [facility] [place] [facility] [address] [facility] [id number], [place] [address]- [address] Sep, [facility] [place] [facility] [address]00565100[place], [place] [address] Sep, [facility] [address] [facility] [id number], [place] [id number] Sep, [facility] [place] [facility] [address] [facility] [id number], [place] [address]- 0[address] Sep, [facility] [place] [facility] [address] [facility] [id number], [place] [address]- 38[address] Sep, [facility] [address] [facility] [id number], [place] [id number] Jul, [facility] [place] [facility] [address] [facility] [id number], [place] [address]- [address] Jul, [facility] [address] [facility] [id number], [place] [id number] Jun, [facility] [place] [facility] [address] [facility] [id number], [place] [address] 2540 Jun, [facility] [address] [id number], [place] 857202430 Jun, [facility] [place] [facility] [address] [facility] [id number], [place] [address] 2546 Jun, [facility] [address] [id number], [place] [id number] Apr, [facility] [place] [facility] [address] [facility] [id number], [place] [address]- 00[address] Apr, [facility] [address] [id number], [place] 885878869 Mar, [facility] [place] [facility] [address] [facility] [id number], [place] [address]- [address] Mar, [facility] [address] [id number], [place] [id number] Mar, [facility] [place] [facility] [address] [facility] [id number], [place] [address]- [address] Mar, [facility] [address] [id number], [place] [id number] Feb, [facility] [place] [facility] [address] [facility] [id number], [place] [address]- 60[address] Feb, [facility] [address] [id number], [place] [id number] Jan, [facility] [place] [facility] [address] [facility] [id number], [place] [address]- 9[address] Jan, [facility] [address] [id number], [place] [id number] 30 Dec, 2012 [facility] [place] [facility] [address] [facility] [id number], [place] [address]- 2546 16 Dec, 2012 [facility] [address] [id number], [place] [id number] Dec, [facility] [address] [id number], [place] [id number] Dec, [facility] [address] [id number] [place] [id number] Oct, [facility] [address] [facility] [id number] [place] [address]- 9038 Oct, [facility] [place] [facility] [address] [facility] [id number] [place] [address]- 2546 Oct, [facility] [address] [id number] [place] [id number] Oct, [facility] [address] [id number] [place] [id number] Sep, [facility] [address] [id number] [place] [id number] August, [facility] [address] [id number] [place] [id number] August, [facility] [address] [id number] [place] [id number] August, [facility] [address] [id number] [place] [id number] Jul, [facility] [address] [facility] [id number], [place] [address]- 2546 Jul, [facility] [address] [id number] [place] [id number] Jul, [facility] [address] [id number] [place] [id number] Jun, [facility] [address] [facility] [id number][place] [address]- 2546 Jun, [facility] [address] [id number] [place] [id number] Jun, [facility] [address] [id number] [place] [id number] Jun, [facility] [address] [id number] [place] [id number] Jun, [facility] [address] [id number] [place] [id number] Jun, [facility] [address] [id number] [place] [id number] Jun, [facility] [address] [place] [id number], [place] [id number] Feb, [facility] [address] [id number] [place] [address]- [address]46 Feb, [facility] [id number], [place] [id number] Jan, [facility] [id number], [place] [id number] Nov, [facility] [address] [place] [id number] [place] [address] [id number] Oct, [facility] [id number] [place] [address] [id number] Oct, [facility] [id number] [place] [address] [id number] Sep, [place] [address] [place] [id number] [place] [address]- 2546 Mar, [place] [address] [place] [id number] [place] [address] 77165- 2546 Nov, IMMUNIZATIONS Vaccine Route Administration Date Status PCV 13 IM Intramuscular May 18, 2017 Administered DTAP (INFARIX) IM Intramuscular May 18, 2017 Administered SOCIAL HISTORY Never Assessed REASON FOR VISIT Pneumonia shot-last was given 2012--ANA maravilla PLAN OF CARE Activity Details Follow Up as schd Reason: VITAL SIGNS Height 67 in 2017-05-18 Weight 294.2 lbs 2017-05-18 Temperature 97.7 degrees Fahrenheit 2017-05-18 Heart Rate 116 bpm 2017-05-18 Respiratory Rate 18 2017-05-18 BMI 46.07 kg/m2 2017-05-18 Blood pressure systolic 108 mmHg 2017-05-18 Blood pressure diastolic 76 mmHg 2017-05-18 MEDICATIONS Medication Instructions Dosage Frequency Start Date End Date Duration Status Zyrtec Allergy 10 mg Orally Once a day 1 tablet 24h Active Flonase 50 mcg/act Nasally Once a day 2 spray in each nostril 24h Apr, Active Gabapentin 300 MG Orally Three times a day 1 capsule 1 tab qhs x 5 d then bid x 5 d then tid 8h Mar, 30 day(s) Active Albuterol Sulfate HFA cfc free 90 mcg/inh Inhalation every 4 hrs 2 puffs as needed 4h 15 Dec, 2014 Active Paroxetine HCl 30 MG Orally BID one tab 12h Active Ondansetron 4 MG Orally every 4 hrs 1 tablet on the tongue and allow to dissolve 4h Feb, 30 day(s) Active Symbicort 80-4.5 MCG/ACT Inhalation Twice a day 2 puffs 12h 18 Jul, 2015 Active Tamsulosin HCl 0.4 MG Orally Once a day 1 capsule 24h Feb, 14 days Not-Taking Hydrocodone-Acetaminophen 5-325 MG Orally every 6 hrs 1 tablet as needed 6h Mar, 10 days Not-Taking Duloxetine HCl 30 MG Orally Twice a day 1 capsule 12h Nov, 30 day(s) Not-Taking Lisinopril 10 mg 1 tablet Once a day Orally Active Methocarbamol 500 mg Orally 3 times a day 1 tablets 8h Oct, Active Pantoprazole Sodium 40 mg Orally Once a day 1 tablet 24h Active Spiriva HandiHaler 18 MCG Inhalation Once a day 1 capsule 24h Active RESULTS No Results PROCEDURES Procedure Date Ordered Result Body Site DTAP (INFARIX) May 18, 2017 SINGLE IMMUNIZATION ADMIN May 18, 2017 PCV 13 May 18, 2017 IMMUNIZATION ADMIN, EACH ADD (please include units) May 18, 2017 INSTRUCTIONS MEDICATIONS ADMINISTERED No Known Medications MEDICAL (GENERAL) HISTORY Type Description Date Medical History hypertension Medical History allergies Medical History chronic obstructive pulmonary disease (COPD) Medical History anxiety Medical History sciatica Medical History acid reflux Medical History Pneumococcal inj (2012) Medical History depression Surgical History cholecystectomy 1979 Hospitalization History [facility] for pneumonia 2012 Hospitalization History [facility] x 3 days for stomach flu 07/24/15 Hospitalization History [facility] for [facility]-given mag citrate for "blockage" 03/09/2016
--- OUTSIDE RECORDS SUMMARY | 2018-04-15 01:27 | XMS REPORT ---
Author Author SOLITARIO BAPTISTE [facility] [employer] Address Unknown Phone Unavailable Care Team Providers Care [place] Name Role Phone SOLITARIO BAPTISTE CP Unavailable Allergies No Known Allergies Problems Problem Type Condition Code Onset Dates Condition Status Problem Unspecified viral infection, in conditions classified elsewhere and of unspecified site 079.99 Active Problem Screening for diabetes mellitus V77.1 Active Problem Dysfunction of Eustachian tube 381.81 Active Problem Other acute reactions to stress 308.3 Active Problem Pneumonia, organism unspecified 486 Active Problem Chronic airway obstruction, not elsewhere classified 496 Active Problem Acute maxillary sinusitis 461.0 Active Problem Rhinitis 472.0 Active Problem Sciatica 724.3 Active Problem Nondependent tobacco use disorder 305.1 Active Problem Other diseases of lung, not elsewhere classified 518.89 Active Problem Lumbago 724.2 Active Problem Acute sinusitis, unspecified 461.9 Active Problem Female stress incontinence 625.6 Active Problem Dysuria 788.1 Active Problem Other and unspecified noninfectious gastroenteritis and colitis 558.9 Active Problem Whooping cough, unspecified organism 033.9 Active Problem Urinary tract infection, site not specified 599.0 Active Problem Shortness of breath 786.05 Active Problem Other dysphagia 787.29 Active Problem Other malaise and fatigue 780.79 Active Problem Need for prophylactic vaccination and inoculation, Influenza V04.81 Active Medications Medication Code System Code Instructions Start Date End Date Status Dosage Spiriva HandiHaler [facility] [id number] 18 MCG Inhalation Once a day 1 capsule Results No Known Results Summary Purpose eClinicalWorks Submission
--- OUTSIDE RECORDS SUMMARY | 2018-04-15 01:27 | XMS REPORT ---
Author Author KATERINA SMITH [facility] Address [address] [place] [address] Care Team Providers Care Fly Setter Name Role Phone KATERINA SMITH Unavailable PROBLEMS Type Condition ICD9-CM Code CRK36-HV Code Onset Dates Condition Status SNOMED Code Problem Overactive bladder N32.81 Active 075197251 Problem Acute exacerbation of chronic obstructive pulmonary disease (COPD) J44.1 Active 548419814 Problem CAP (community acquired pneumonia) J18.9 Active 125471747 Problem Hereditary and idiopathic neuropathy, 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 Active 96166130 Problem Back pain with left-sided radiculopathy M54.10 Active 292769752 Problem Dysthymia F34.1 Active 29659551 Problem Moderate single current episode of major depressive disorder F32.1 Active 92674573 Problem Sciatica of left side M54.32 Active 20685724 Problem Kidney stone N20.0 Active 89844190 Problem Female stress incontinence 625.6 Active 61066838 Problem Essential hypertension I10 Active 16148113 Problem Chronic airway obstruction, not elsewhere classified J44.9 Active 97612403 Problem Nondependent tobacco use disorder 305.1 Active 848372684 Problem Mood disorder F39 Active 74972714 Problem Chronic rhinitis J31.0 Active 84710974 Problem Lung nodule R91.1 Active 044249514 ALLERGIES Substance Reaction Event Type Date Status Penicillin V Potassium rash Drug Allergy Mar, Active Aspirin rash Drug Allergy Mar, Active ENCOUNTERS Encounter Location Date Diagnosis [facility] [address] [id number] [place] [id number] Sep, [facility] Funding[address] [id number] [place] [id number] Sep, [facility] [address] [id number] [place] [id number] Sep, [facility] [id number][place] [id number] Sep, Dysthymia F34.1 [address] [id number] Sep, Mood disorder F39 [facility] [address] [id number][place] [id number] August, Dysthymia F34.1 [address] [place] [address] [id number] August, Dysthymia F34.1 ; Chronic airway obstruction, not elsewhere classified J44.9 ; Back pain with left-sided radiculopathy M54.10 and BMI 45.0-49.9, adult Z68.42 [place] [id number] [place] [address] [id number] Jul, Urinary tract infection without hematuria, site unspecified N39.0 and Fatigue, unspecified type R53.83 [place] [id number] [place] [address] [id number] Jul, Chronic airway obstruction, not elsewhere classified J44.9 [address] [place] [address] [id number] Jul, BMI 45.0-49.9, adult Z68.42 and Infective urethritis N34.2 [address] [place] [address] [id number] Jul, [place] [id number] [place] [address] [id number] Jun, Back pain with left-sided radiculopathy M54.10 [address] [place] [address] [id number] May, Chronic airway obstruction, not elsewhere classified J44.9 and Encounter for immunization Z23 [place] [id number] [place] [address] [id number] Apr, BMI 45.0-49.9, adult Z68.42 ; Back pain with left-sided radiculopathy M54.10 ; Chronic airway obstruction, not elsewhere classified J44.9 and Dysthymia F34.[address] [id number] [place] [id number] Mar, Sciatica of left side M54.32 ; Back pain with left-sided radiculopathy M54.10 and Hereditary and idiopathic neuropathy, 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 [facility] [id number] [place] [address] [id number] Mar, Flank pain R10.9 ; Urinary urgency R39.15 and Chronic airway obstruction, not elsewhere classified J44.9 [facility] [id number] [place] [address] [id number] Mar, Dysthymia F34.1 [facility] [address] [facility] [address] [id number] [place] [address] [id number] Feb, [facility] [place] [facility] [id number] [place] [address] Feb, [facility] [id number] [place] [address] [id number] Feb, Hematuria, unspecified type R31.9 ; Kidney stone N20.0 and BMI 40.0-44.9, adult Z68.41 [facility] [address] [place], [place] [id number] [place] [address] Feb, [facility] [address] [facility] [address] [id number] [place] [address] [id number] Feb, [facility] [id number] [place] [address] [id number] Feb, [facility] [id number] [place] [address] [id number] Feb, Dysthymia F34.1 ; Encounter for immunization Z23 ; Acute nasopharyngitis J00 ; Chronic rhinitis J31.0 and Chronic airway obstruction, not elsewhere classified J44.9 [facility] [place] [facility] [id number] [place] [address] 98[address] Jan, Well woman exam Z01.419 ; Left breast lump N63.20 and BMI 40.0-44.9, adult Z68.41 [facility] [address] [id number] Jan, Muscle cramps R25.2 [facility] [address] [id number] [place] [id number] Dec, Dysthymia F34.1 [facility] [id number] [place] [address] [id number] Dec, Muscle cramps R25.2 [facility] [address] [id number] [place] [address] [id number] Nov, Dysthymia F34.1 [facility] [address] [id number] [place] [address] [id number] Oct, [facility] [id number] [place] [address] [id number] Oct, Chronic airway obstruction, not elsewhere classified J44.9 ; Moderate single current episode of major depressive disorder F32.1 ; Chronic rhinitis J31.0 and Muscle cramps R25.2 [facility] [id number] [place] [address] [id number] Sep, Acute nasopharyngitis J00 [facility] [address]00565100[place], [place] [address] Jun, Acute exacerbation of chronic obstructive pulmonary disease (COPD) J44.1 [facility] [id number] [place] [address] [id number] Jun, Acute nasopharyngitis J00 [facility] [id number] [place] [id number] Jun, [facility] [address]00565100[place], [place] [address] Apr, [facility] [id number] [place] [id number] Mar, Acute nasopharyngitis J00 [facility] [id number] [place] [id number] Mar, [facility] [id number] [place] [address] [id number] Mar, [facility] [id number] [place] [address] [id number] Feb, CAP (community acquired pneumonia) J18.9 and Chronic rhinitis J31.0 [facility] [id number] [place] [address] [id number] Feb, CAP (community acquired pneumonia) J18.9 [facility] [id number] [place] [address] [id number] Feb, CAP (community acquired pneumonia) J18.9 [facility] [id number] [place] [address] [id number] Feb, [facility] [id number] [place] [address] [id number] Jan, Mood disorder F39 [facility] [place] [facility] [address] [address] Jan, [facility] [id number] [place] [address] [id number] Jan, Lung nodule R91.1 [facility] [id number] [place] [address] [phone] Jan, Lung nodule R91.1 [place] [id number] [place] [address] [id number] Jan, Lung nodule R91.1 [place] [id number] [place] [address] [phone] Jan, Lung nodule R91.1 [place] [id number] [place] [address] [id number] Jan, [place] [id number] [place] [address] [id number] Nov, Overactive bladder N32.81 ; Chronic airway obstruction, not elsewhere classified J44.9 and Essential hypertension I10 [place] [id number] [place] [address] [id number] Oct, [place] [id number] [place] [address] [id number] Oct, Acute non-recurrent sinusitis, unspecified location J01.90 ; Cough R05 and Tobacco dependence F17.200 [place] [id number] [place] [address] [id number] Sep, Overactive bladder N32.81 and Chronic airway obstruction, not elsewhere classified J44.9 [address] [place] [address] [id number] August, Chronic airway obstruction, not elsewhere classified J44.9 ; Mood disorder F39 and Urinary frequency R35.0 [address] [place] [address] [id number] August, [address] [id number] Jul, Lung nodule R91.1 ; Chronic airway obstruction, not elsewhere classified J44.9 and Urinary tract infection without hematuria, site unspecified N39.0 [place] [id number] [place] [address] [id number] Jul, Lung nodule R91.1 [address] [place] [address] [id number] Jul, [place] [id number] [place] [address] [id number] Jul, Diarrhea R19.7 and Lung nodule R91.1 [place] [id number] [place] [address] [id number] Apr, Upper respiratory tract infection, unspecified type J06.9 and COPD exacerbation J44.1 [address] [id number] Mar, [address] [place] [address] [id number] Feb, Mood disorder F39 and Essential hypertension I10 [address] [place] [address] [id number] Jan, Essential hypertension I10 ; Mood disorder F39 ; Chronic airway obstruction, not elsewhere classified J44.9 and Chronic rhinitis J31.0 [address] [id number] Jan, [facility] [address] [place] [address] [id number] [phone] Jan, [facility] [address]00565100[place] [id number] Jan, [facility] [address] [id number] [place] [phone] Jan, [facility] [address] [id number] [place] [id number] Dec, [place] [address] [facility] [address] [id number] [id number] Dec, [facility] [id number] [place] [id number] Sep, Rhinitis 472.0 [facility] [place] [facility] [address]00565100[place], [place] [address] Jul, [facility] [place] [facility] [address] [place] [address] 19828- [phone] Jul, [facility] [id number] [place] [id number] Jun, [facility] [place] [facility] [address]00565100[place], [place] [address] Jun, [facility] [place] [facility] [address]005[address]100[place], [place] [address] Jun, [facility] [address] [id number] [place] [id number] May, [facility] [place] [facility] [address]00565100[place], [place] [address] May, [facility] [address] [id number] [place] [id number] Apr, [facility] [place] [facility] [address] [id number], [place] [address]- 37[address] Apr, [facility] [address] [id number] [place] [id number] Mar, [facility] [place] [facility] [address]00565100[place], [place] [address] Mar, [facility] [address] [id number] [place] [id number] Mar, [facility] [place] [facility] [address] [facility] [id number], [place] [address] Mar, [facility] [address] [facility] [id number] [place] [id number] Mar, [facility] [place] [facility] [address] [facility] [id number][place] [address] 8[address] Mar, [facility] [address] [facility] [id number] [place] [id number] Mar, [facility] [place] [facility] [address] [facility] [id number], [place] [address] 5658 Mar, [facility] [address] [facility] [id number] [place] [id number] Feb, [facility] [place] [facility] [address] [facility] [id number][place] [address] 1611 Feb, [facility] [id number] [place] [id number] Feb, [facility] [place] [facility] [address] [facility] [id number], [place] [address]- 3096 Feb, [facility] [address] [facility] [id number] [place] [id number] Feb, [facility] [place] [facility] [address] [facility] [id number], [place] [address]- 1412 Feb, [facility] [address] [facility] [id number] [place] [id number] Jan, [facility] [place] [facility] [address] [facility] [id number] [address]- 4982 Jan, [facility] [address] [facility] [id number] [place] [id number] Jan, [facility] [place] [facility] [address] [facility] [id number] [address] Jan, [facility] [address] [facility] [id number] [place] [id number] Sep, [facility] [place] [facility] [address] [facility] [id number][place] [address]- [address] Sep, [facility] [place] [facility] [address] [facility] [id number] [place] [address]- 3[address] Sep, [facility] [address] [facility] [id number] [place] [id number] Sep, [facility] [place] [facility] [address] [facility] [id number] [place] [address]- 1306 Sep, [facility] [place] [facility] [address] [facility] [id number] [place] [address]- 1686 Sep, [facility] [address] [facility] [id number] [place] [id number] Jul, [facility] [place] [facility] [address] [facility] [id number] [place] [address]- 7406 Jul, [facility] [address] [facility] [id number] [place] [id number] Jun, [facility] [place] [facility] [address] [facility] [id number], [place] [address]- 5026 Jun, [facility] [address] [facility] [id number] [place] [id number] Jun, [facility] [place] [facility] [address] [facility] [id number], [place] [address]- 7[address] Jun, [facility] [address] [facility] [id number] [place] [id number] Apr, [facility] [place] [facility] [address] [facility] [id number], [place] [address]- 2266 Apr, [facility] [address] [facility] [id number] [place] [id number] Mar, [facility] [place] [facility] [address] [facility] [id number], [place] [address]- 2546 Mar, [facility] [address] [facility] [id number] [place] [id number] Mar, [facility] [place] [facility] [address] [facility] [id number], [place] [address]- 7[address] Mar, [facility] [address] [facility] [id number] [place] [id number] Feb, [facility] [address] [facility] [id number][place] [address]- 6[address] Feb, [facility] [address] [id number] [place] [id number] Jan, [facility] [place] [facility] [address] [facility] [id number][place] [address]- 3[address] Jan, [facility] [address] [id number] [place] [id number] Dec, [facility] [address] [facility] [id number], [place] [address]- [address] 16 Dec, 2012 [facility] [address] [id number] [place] [id number] Dec, [facility] [address] [id number] [place] [id number] Dec, [facility] [address] [id number] [place] [id number] Oct, [facility] [address] [facility] [id number], [place] [address]- 9293 Oct, [facility] [address] [facility] [id number], [place] [address]- 2166 Oct, [facility] [address] [id number] [place] [id number] Oct, [facility] [address] [id number] [place] [id number] Sep, [facility] [address] [id number] [place] [id number] August, [facility] [address] [id number] [place] [id number] August, [facility] [address] [id number] [place] [id number] August, [facility] [address] [id number] [place] [id number] Jul, [facility] [place] [facility] [address] [facility] [id number], [place] [address]- 6639 Jul, [facility] [address] [id number] [place] [id number] Jul, [facility] [address] [id number] [place] [id number] Jun, [facility] [id number] [place] [address]66- 6908 Jun, [facility] [address] [id number] [place] [id number] Jun, [facility] [address] [id number] [place] [id number] Jun, [facility] [address] [id number] [place] [id number] Jun, [facility] [address] [id number] [place] [id number] Jun, [facility] [address] [id number] [place] [id number] Jun, [facility] [address] [id number] [place] [id number] Feb, [facility] [place] [facility] [address] [place] [address]64- 2546 Feb, [facility] [address] [id number] [place] [id number] Jan, [facility] [id number] [place] [address] [id number] Nov, [facility] [address] [id number] [place] [id number] Oct, [facility] [address] [id number] [place] [id number] Oct, [facility] [address] [id number] [place] 115753197 Sep, [facility] [place] [facility] [id number] [place] [address] 37[address]- 2625 Mar, [facility] [place] [facility] [address] [place] [address] 065839- 3349 Nov, IMMUNIZATIONS No Known Immunizations SOCIAL HISTORY Never Assessed REASON FOR VISIT CHM- Depression f/u, Pt continues to have flank pain, doesn't believe she has passed her kidney stone yet Leelee COOMBS PLAN OF CARE Activity Details Follow Up 2 Weeks Reason:back pain VITAL SIGNS Height 67 in 2017-03-15 Weight 290.2 lbs 2017-03-15 Temperature 97.9 degrees Fahrenheit 2017-03-15 Heart Rate 100 bpm 2017-03-15 Respiratory Rate 20 2017-03-15 BMI 45.45 kg/m2 2017-03-15 Blood pressure systolic 140 mmHg 2017-03-15 Blood pressure diastolic 82 mmHg 2017-03-15 MEDICATIONS Medication Instructions Dosage Frequency Start Date End Date Duration Status Cipro 500 mg Orally Twice a day 1 tablet 12h 11 Mar, 2017 Mar, 10 day(s) Active Methocarbamol 500 mg Orally 3 times a day 1 tablets 8h Oct, Active Lisinopril 10 mg 1 tablet Once a day Orally Active Pantoprazole Sodium 40 mg Orally Once a day 1 tablet 24h Active Flonase 50 mcg/act Nasally Once a day 2 spray in each nostril 24h Apr, Active Ondansetron 4 MG Orally every 4 hrs 1 tablet on the tongue and allow to dissolve 4h Feb, 30 day(s) Active Venlafaxine HCl 100 mg Orally Twice a day 1.5 tablet with food 12h Not-Taking Zyrtec Allergy 10 mg Orally Once a day 1 tablet 24h Active Spiriva HandiHaler 18 MCG Inhalation Once a day 1 capsule 24h Active Albuterol Sulfate HFA cfc free 90 mcg/inh Inhalation every 4 hrs 2 puffs as needed 4h 15 Dec, 2014 Active Hydrocodone-Acetaminophen 5-325 MG Orally every 6 hrs 1 tablet as needed 6h Mar, 10 days Active Symbicort 80-4.5 MCG/ACT Inhalation Twice a day 2 puffs 12h 18 Jul, 2015 Active Duloxetine HCl 30 MG Orally Twice a day 1 capsule 12h Nov, 30 day(s) Active Tamsulosin HCl 0.4 MG Orally Once a day 1 capsule 24h Feb, 14 days Active RESULTS Name Result Date Reference Range UA LONG DIP (IN HOUSE) 2017-03-15 Lot # [id number] Exp date 11/2017 Clarity clear Color yellow Odor no GLU neg JU neg KET neg SG 1.005 BLO neg pH 6.0 Protein neg URO 0.2 NIT neg ALMAS 1+ Lot # Exp date PROCEDURES Procedure Date Ordered Result Body Site URINALYSIS, AUTO, W/O SCOPE Mar 15, 2017 INSTRUCTIONS MEDICATIONS ADMINISTERED No Known Medications MEDICAL (GENERAL) HISTORY Type Description Date Medical History hypertension Medical History allergies Medical History chronic obstructive pulmonary disease (COPD) Medical History anxiety Medical History sciatica Medical History acid reflux Medical History Pneumococcal inj (2012) Medical History depression Surgical History cholecystectomy 1979 [facility] Hospitalization History [facility] x 3 days for stomach flu 07/24/15 Hospitalization History [facility]-given mag citrate for "blockage" 03/09/2016
--- OUTSIDE RECORDS SUMMARY | 2018-04-15 01:28 | XMS REPORT ---
Author Author KATERINA SMITH Organization [employer] Address Unknown Phone Unavailable Care Team Providers Care Account Development Associate Name Role Phone KATERINA SMITH CP Unavailable Allergies, Adverse Reactions, Alerts Substance Reaction Event Type Penicillin V Potassium rash Drug Allergy Aspirin rash Drug Allergy Problems Problem Type Condition Code Onset Dates Condition Status Problem Female stress incontinence 625.6 Active Problem Sciatica 724.3 Active Problem Nondependent tobacco use disorder 305.1 Active Assessment Lung nodule R91.1 Active Assessment Diarrhea R19.7 Active Problem Essential hypertension I10 Active Problem Mood disorder F39 Active Problem Lung nodule R91.1 Active Problem Chronic airway obstruction, not elsewhere classified 496 Active Problem Lumbago 724.2 Active Problem Chronic airway obstruction, not elsewhere classified J44.9 Active Problem Chronic rhinitis J31.0 Active Medications Medication Code System Code Instructions Start Date End Date Status Dosage Lisinopril [facility] [address]-45 10 mg Orally Once a day Feb 20, 2014 1 tablet Zyrtec Allergy [facility] [address]-35 10 MG Orally Once a day September 20, 2014 1 capsule as needed Albuterol Sulfate HFA [facility] [address]-88 108 (90 Base) MCG/ACT Inhalation every 4 hrs Dec 18, 2014 2 puffs as needed Venlafaxine HCl [facility] [address]-19 75 MG Orally Twice a day Dec 07, 2014 1 tablet with food Spiriva HandiHaler [facility] [address]-86 18 MCG Inhalation Once a day 1 capsule Flonase NDC 0 50 mcg/actuation Apr 27, 2013 1 sprays by Nasal route 2 times per day in each nostril Procedures Procedure Coding System Code Date Office Visit, Est Pt., Level 3 CPT-4 82069 July 10, 2015 Vital Signs Date/Time: July 10, 2015 Temperature 97.7 F Weight 279 lbs Height 67 in BMI 43.69 Index Blood Pressure Diastolic 70 mmHg Blood Pressure Systolic 110 mmHg Cardiac Monitoring Heart Rate 90 bpm Results No Known Results Summary Purpose [employer] Submission
--- OUTSIDE RECORDS SUMMARY | 2018-04-15 01:28 | XMS REPORT ---
Author Author KATERINA SMITH Organization [employer] Address Unknown Phone Unavailable Care Team Providers Care Milk Processing Worker Name Role Phone KATERINA SMITH CP Unavailable Allergies No Known Allergies Problems Problem Type Condition ICD-9 Code Onset Dates Condition Status Problem Unspecified [...] Instructions Start Date End Date Status Dosage Venlafaxine HCl [facility] [address]-76 37.5 MG Orally Twice a day Dec 07, 2014 1 tablet with food Results No Known Results Summary Purpose [employer] Submission
--- OUTSIDE RECORDS SUMMARY | 2018-04-15 01:28 | XMS REPORT ---
Author Author KATERINA SMITH [facility] [employer] Address Unknown Phone Unavailable Care Team Providers Care Vegetable Preparer Name Role Phone KATERINA SMITH CP Unavailable Allergies, Adverse Reactions, Alerts Substance Reaction Event Type Penicillin V Potassium rash Drug Allergy Aspirin rash Drug Allergy Problems Problem Type Condition Code Onset Dates Condition Status Assessment Mood disorder F39 Active Problem Nondependent tobacco use disorder 305.1 Active Problem Female stress incontinence 625.6 Active Assessment Essential hypertension I10 Active Problem Mood disorder F39 Active Problem Chronic airway obstruction, not elsewhere classified J44.9 Active Problem Essential hypertension I10 Active Problem Lumbago 724.2 Active Problem Sciatica 724.3 Active Problem Chronic rhinitis J31.0 Active Problem Chronic airway obstruction, not elsewhere classified 496 Active Medications Medication Code System Code Instructions Start Date End Date Status Dosage Lisinopril [facility] [address]-00 10 MG Orally Once a day Feb 20, 2014 1 tablet Flonase [facility] [address]-14 50 mcg/actuation Apr 27, 2013 1 sprays by Nasal route 2 times per day in each nostril Venlafaxine HCl [facility] [address]-09 75 MG Orally Twice a day Dec 07, 2014 1 tablet with food Spiriva HandiHaler [facility] [address]-72 18 MCG Inhalation Once a day 1 capsule Zyrtec Allergy [facility] [address]-02 10 MG Orally Once a day September 20, 2014 1 capsule as needed Albuterol Sulfate HFA [facility] [address]-35 108 (90 Base) MCG/ACT Inhalation every 4 hrs Dec 18, 2014 2 puffs as needed Chlorthalidone [facility] [address]-54 25 MG May 28, 2014 1 tablet by Oral route 1 time per day Omeprazole [facility] [address]-66 20 MG Orally Once a day 2 capsule Procedures Procedure Coding System Code Date Office Visit, Est Pt., Level 3 CPT-4 79319 Feb 11, 2015 Vital Signs Date/Time: Feb 11, 2015 Temperature 97.3 F Weight 285.4 lbs Height 67 in BMI 44.70 Index Blood Pressure Diastolic 76 mmHg Blood Pressure Systolic 126 mmHg Cardiac Monitoring Heart Rate 85 bpm Results No Known Results Summary Purpose [employer] Submission
--- OUTSIDE RECORDS SUMMARY | 2018-04-15 01:28 | XMS REPORT ---
Author Author KATERINA SMITH Organization [employer] Address Unknown Phone Unavailable Care Team Providers Care Dry Cell Battery Assembler Name Role Phone KATERINA SMITH CP Unavailable Allergies No Known Allergies Problems Problem Type Condition Code Onset Dates Condition Status Problem Nondependent tobacco use disorder 305.1 Active Problem Female stress incontinence 625.6 Active Problem Mood disorder F39 Active Problem Chronic airway obstruction, not elsewhere classified J44.9 Active Problem Essential hypertension I10 Active Problem Lumbago 724.2 Active Problem Sciatica 724.3 Active Problem Chronic rhinitis J31.0 Active Problem Chronic airway obstruction, not elsewhere classified 496 Active Medications Medication Code System Code Instructions Start Date End Date Status Dosage Venlafaxine HCl [facility] [address]-11 75 MG Orally Twice a day Dec 07, 2014 1 tablet with food Results No Known Results Summary Purpose [employer] Submission
--- OUTSIDE RECORDS SUMMARY | 2018-04-15 01:28 | XMS REPORT ---
Author Author KATERINA SMITH [facility] Address [address] [place] [address] Care Team Providers Care Decorating Kiln Operator Name Role Phone KATERINA SMITH Unavailable PROBLEMS Type Condition ICD9-CM Code [id number] Code Onset Dates Condition Status SNOMED Code Problem Chronic airway obstruction, not elsewhere classified J44.9 Active 35935639 Problem Chronic rhinitis J31.0 Active 85618281 Problem Mood disorder F39 Active 04461454 Problem Dysthymia F34.1 Active 67998133 Problem Moderate single current episode of major depressive disorder F32.1 Active 95134844 Problem Overactive bladder N32.81 Active 641511097 Problem Lung nodule R91.1 Active 934298845 Problem Acute exacerbation of chronic obstructive pulmonary disease (COPD) J44.1 Active 868670213 Problem CAP (community acquired pneumonia) J18.9 Active 649460164 Problem Female stress incontinence 625.6 Active 83502719 Problem Chronic airway obstruction, not elsewhere classified 496 Active 95878061 Problem Lumbago 724.2 Active 413849276 Problem Nondependent tobacco use disorder 305.1 Active 604849509 Problem Sciatica 724.3 Active 29444789 Problem Essential hypertension I10 Active 10388601 ALLERGIES No Information SOCIAL HISTORY Never Assessed PLAN OF CARE VITAL SIGNS MEDICATIONS Medication Instructions Dosage Frequency Start Date End Date Duration Status Symbicort 80-4.5 MCG/ACT Inhalation Twice a day 2 puffs 12h 18 Jul, 2015 Active RESULTS No Results PROCEDURES No Known [...]
--- OUTSIDE RECORDS SUMMARY | 2018-04-15 01:28 | XMS REPORT ---
Author Author KATERINA SMITH Organization [employer] Address Unknown Phone Unavailable Care Team Providers Care Natural Developer Name Role Phone KATERINA SMITH CP Unavailable Allergies No Known Allergies Problems Problem Type Condition Code Onset Dates Condition Status Problem Nondependent tobacco use disorder 305.1 Active Problem Lumbago 724.2 Active Problem Sciatica 724.3 Active Assessment Lung nodule R91.1 Active Problem Female stress incontinence 625.6 Active Problem Lung nodule R91.1 Active Problem Essential hypertension I10 Active Problem Overactive bladder N32.81 Active Problem Chronic rhinitis J31.0 Active Problem Chronic airway obstruction, not elsewhere classified 496 Active Problem Mood disorder F39 Active Problem Chronic airway obstruction, not elsewhere classified J44.9 Active Medications No Known Medications Results No Known Results Summary Purpose [employer] Submission
--- OUTSIDE RECORDS SUMMARY | 2018-04-15 01:28 | XMS REPORT ---
Author Author KATERINA SMITH [facility] Address [address] [place] [address] Care Team Providers Care Care Nurse Rn Name Role Phone KATERINA SMITH Unavailable PROBLEMS Type Condition ICD9-CM Code [id number] Code Onset Dates Condition Status SNOMED Code Problem Chronic rhinitis J31.0 Active 12856188 Problem Mood disorder F39 Active 23155777 Problem Chronic airway obstruction, not elsewhere classified J44.9 Active 86583061 Problem Moderate single current episode of major depressive disorder F32.1 Active 24271321 Problem Acute exacerbation of chronic obstructive pulmonary disease (COPD) J44.1 Active 596150270 Problem Lung nodule R91.1 Active 560736721 Problem Essential hypertension I10 Active 14790204 Problem CAP (community acquired pneumonia) J18.9 Active 209583630 Problem Overactive bladder N32.81 Active 409351531 Problem Nondependent tobacco use disorder 305.1 Active 673982852 Problem Sciatica 724.3 Active 55423707 Problem Lumbago 724.2 Active 998018730 Problem Female stress incontinence 625.6 Active 43468095 Problem Chronic airway obstruction, not elsewhere classified 496 Active 63839558 ALLERGIES Unknown Allergies SOCIAL HISTORY No smoking Hx information available PLAN OF CARE VITAL SIGNS MEDICATIONS Unknown Medications RESULTS No Results PROCEDURES No Known procedures IMMUNIZATIONS No Known Immunizations
--- OUTSIDE RECORDS SUMMARY | 2018-04-15 01:28 | XMS REPORT ---
Author Author KATERINA SMITH [facility] Address [address] [place] [address] Care Team Providers Care Sash Installer Name Role Phone KATERINA SMITH Unavailable PROBLEMS Type Condition ICD9-CM Code [id number] Code Onset Dates Condition Status SNOMED Code Problem Overactive bladder N32.81 Active 611622826 Problem Acute exacerbation of chronic obstructive pulmonary disease (COPD) J44.1 Active 356933162 Problem CAP (community acquired pneumonia) J18.9 Active 813991581 Problem Hereditary and idiopathic neuropathy, 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 Active 84991493 Problem Sciatica of left side M54.32 Active 11643914 Problem Dysthymia F34.1 Active 98432788 Problem Moderate single current episode of major depressive disorder F32.1 Active 96861398 Problem Back pain with left-sided radiculopathy M54.10 Active 932601595 Problem Kidney stone N20.0 Active 61884307 Problem Female stress incontinence 625.6 Active 70750222 Problem Chronic airway obstruction, not elsewhere classified 496 Active 50489619 Problem Lumbago 724.2 Active 983667033 Problem Sciatica 724.3 Active 81192987 Problem Mood disorder F39 Active 85492003 Problem Essential hypertension I10 Active 04233712 Problem Nondependent tobacco use disorder 305.1 Active 772069003 Problem Chronic airway obstruction, not elsewhere classified J44.9 Active 94193823 Problem Chronic rhinitis J31.0 Active 57795214 Problem Lung nodule R91.1 Active 610049118 ALLERGIES No Information ENCOUNTERS Encounter Location Date Diagnosis [facility] [address] [facility] [id number] [place] [id number] 05 Jun, 2017 Back pain with left-sided radiculopathy M54.10 [facility] [address] [facility] [id number] [place] [id number] 13 May, 2017 Chronic airway obstruction, not elsewhere classified J44.9 and Encounter for immunization Z23 [facility] [id number] [place] [id number] Apr, BMI 45.0-49.9, adult Z68.42 ; Back pain with left-sided radiculopathy M54.10 ; Chronic airway obstruction, not elsewhere classified J44.9 and Dysthymia F34.1 [facility] [id number] [place] [id number] Mar, Sciatica of left side M54.32 ; Back pain with left-sided radiculopathy M54.10 and Hereditary and idiopathic neuropathy, 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 [facility] [id number] [place] [id number] Mar, Flank pain R10.9 ; Urinary urgency R39.15 and Chronic airway obstruction, not elsewhere classified J44.9 [facility] [id number] [place] [id number] Mar, Dysthymia F34.1 [facility] [address] [id number][place] [id number] Feb, [facility] [address]005[address] [address] Feb, [facility] [id number] [place] [address] [place] [id number] Feb, Hematuria, unspecified type R31.9 ; Kidney stone N20.0 and BMI 40.0-44.9, adult Z68.41 [facility] [address] [place], [id number], [place] [address] Feb, [facility] [address] [id number][place] [id number] Feb, [facility] [id number] [place] [address] [id number] Feb, [facility] [id number] [place] [address] [id number] Feb, Dysthymia F34.1 ; Encounter for immunization Z23 ; Acute nasopharyngitis J00 ; Chronic rhinitis J31.0 and Chronic airway obstruction, not elsewhere classified J44.9 [facility] [id number] [place] [id number] Jan, Well woman exam Z01.419 ; Left breast lump N63.20 and BMI 40.0-44.9, adult Z68.41 [facility] [id number] [place] [address] [id number] Jan, Muscle cramps R25.2 [facility] [address] [id number] Dec, Dysthymia F34.1 [facility] [address] [id number] Dec, Muscle cramps R25.2 [facility] [address] [id number] Nov, Dysthymia F34.1 [facility] [id number] [place] [address] [id number] Oct, [facility] [address] [id number] Oct, Chronic airway obstruction, not elsewhere classified J44.9 ; Moderate single current episode of major depressive disorder F32.1 ; Chronic rhinitis J31.0 and Muscle cramps R25.2 [facility] [id number] [place] [address] [id number] Sep, Acute nasopharyngitis J00 [facility] [id number] [place] [address] Jun, Acute exacerbation of chronic obstructive pulmonary disease (COPD) J44.1 [facility] [id number] [place] [address] [id number] Jun, Acute nasopharyngitis J00 [facility] [id number] [place] [address] [id number] Jun, [facility] [address] [place] [address]88898- [address]096 Apr, [facility] [id number] [place] [address] [id number] Mar, Acute nasopharyngitis J00 [facility] [id number] [place] [address] [id number] Mar, [facility] [id number] [place] [address] [id number] Mar, [facility] [id number] [place] [address] [id number] Feb, CAP (community acquired pneumonia) J18.9 and Chronic rhinitis J31.0 [facility] [id number] [place] [address] [id number] Feb, CAP (community acquired pneumonia) J18.9 [facility] [id number] [place] [address] [id number] Feb, CAP (community acquired pneumonia) J18.9 [facility] [id number] [place] [address] [id number] Feb, [facility] [id number] [place] [address] [id number] Jan, Mood disorder F39 [facility] [id number] [place] [address] Jan, [place] [id number] [place] [address] [id number] Jan, Lung nodule R91.1 [facility] [id number] [place] [address] [id number] Jan, Lung nodule R91.1 [facility] [id number] [place] [address] [id number] Jan, Lung nodule R91.1 [facility] [id number] [place] [address] [id number] Jan, Lung nodule R91.1 [place] [id number] [place] [address] [id number] Jan, [facility] [address] [id number] Nov, Overactive bladder N32.81 ; Chronic airway obstruction, not elsewhere classified J44.9 and Essential hypertension I10 [facility] [id number] [place] [address] [id number] Oct, [address] [place] [address] [id number] Oct, Acute non-recurrent sinusitis, unspecified location J01.90 ; Cough R05 and Tobacco dependence F17.200 [id number] [place] [address] [id number] Sep, Overactive bladder N32.81 and Chronic airway obstruction, not elsewhere classified J44.9 [id number] [place] [address] [id number] August, Chronic airway obstruction, not elsewhere classified J44.9 ; Mood disorder F39 and Urinary frequency R35.[address] [id number] August, [address] [id number] Jul, Lung nodule R91.1 ; Chronic airway obstruction, not elsewhere classified J44.9 and Urinary tract infection without hematuria, site unspecified N39.0 [id number] [place] [address] [id number] Jul, Lung nodule R91.[address] [id number] Jul, [address] [id number] Jul, Diarrhea R19.7 and Lung nodule R91.[address] [id number] Apr, Upper respiratory tract infection, unspecified type J06.9 and COPD exacerbation J44.1 [id number] [place] [address] [id number] Mar, [address] [id number] Feb, Mood disorder F39 and Essential hypertension I10 [id number] [place] [address] [id number] Jan, Essential hypertension I10 ; Mood disorder F39 ; Chronic airway obstruction, not elsewhere classified J44.9 and Chronic rhinitis J31.0 [facility] [address] [facility] [id number] [place] [phone] Jan, Renee AYLETT [address] [id number][place] [id number] Jan, [facility] [address] [facility] [address] [id number] [place] [phone] Jan, [facility] [address] [id number] [place] [address] [place] [id number] Jan, [facility] [address] [id number] [place] [address] [place] [phone] Dec, Bronchitis [facility] [address] [facility] [id number][place] [id number] Dec, [facility] [address] [id number] [place] [phone] Sep, Rhinitis 472.0 [facility] [address] [address] Jul, [facility] [place] [facility] [address]100[place] [address] Jul, [facility] [address] [id number] [place] [id number] Jun, [facility] [address] [address] Jun, [facility] [address] [address] Jun, [facility] [address] [facility] [id number] [place] [id number] May, [facility] [address] [address] May, [facility] [address] [id number] [place] [id number] Apr, [facility] [address] [id number] [address] Apr, [facility] [address] [id number] [place] [id number] Mar, [facility] [address] [id number] [address] Mar, [facility] [address] [id number] [place] [id number] Mar, [facility] [address] [facility] [id number] [place] [address] Mar, [facility] [address] [id number] [place] [id number] Mar, [facility] [place] [address] [facility] [id number] [place] [address]- [address] Mar, [facility] [address] [facility] [id number] [place] [id number] Mar, [facility] [place] [address] [address] 39[address] Mar, [facility] [address] [facility] [id number] [place] [id number] Feb, [facility] [address] [facility] [id number] [place] [address] Feb, [facility] [address] [facility] [id number] [place] [id number] Feb, [facility] [place] [facility] [address] [address] Feb, [facility] [address] [facility] [id number] [place] [id number] Feb, [facility] [address] [facility] [id number] [place] [address] Feb, [facility] [address] [id number] [place] [id number] Jan, [facility] [place] [address] [facility] [id number] [place] [address]- 8[address] Jan, [facility] [address] [id number] [place] [id number] Jan, [facility] [place] [address] [id number] [address]- 270[address] Jan, [facility] [address] [facility] [id number] [place] [id number] Sep, [facility] [address] [facility] [id number] [place] [address]- 9[address] Sep, [facility] [address] [facility] [id number] [place] [address]- [address] Sep, [facility] [address] [facility] [id number] [place] [id number] Sep, [facility] [place] [facility] [address] [facility] [id number] [place] [address]- 7[address] Sep, [facility] [place] [facility] [address] [facility] [id number] [place] [address]- 3[address] Sep, [facility] [address] [facility] [id number] [place] [id number] Jul, [facility] [place] [facility] [address] [facility] [id number] [place] [address]- [address] Jul, [facility] [address] [facility] [id number] [place] [id number] Jun, [facility] [place] [facility] [address] [facility] [id number] [place] [address]- [address] Jun, [facility] [address] [facility] [id number] [place] [id number] Jun, [facility] [place] [facility] [address] [facility] [id number] [place] [address]- [address] Jun, [facility] [address] [facility] [id number] [place] [id number] Apr, [facility] [place] [facility] [address] [facility] [id number] [place] [address]- 4046 Apr, [facility] [address] [facility] [id number] [place] [id number] Mar, [facility] [place] [facility] [address] [facility] [id number] [place] [address]- 1153 Mar, [facility] [address] [id number] [place] 00477[address] Mar, [facility] [address] [facility] [id number] [place] [address]- [address] Mar, [facility] [address] [id number] [place] [id number] Feb, [facility] [address] [facility] [id number] [address]- [address] Feb, [facility] [address] [id number] [place] [address] Jan, [facility] [address] [facility] [id number] [place] [address]- 2546 Jan, [facility] [address] [id number] [place] [id number] 30 Dec, 2012 [facility] [address]005[address] [address]- [address] 16 Dec, 2012 [facility] [address] [id number] [place] [id number] Dec, [facility] [address] [id number] [place] [id number] Dec, [facility] [address] [id number] [place] [id number] Oct, [facility] [address]00565[address] [address]- 2546 Oct, [facility] [address] [facility] [id number] [address]- [address] Oct, [facility] [address] [id number] [place] [id number] Oct, [facility] [address] [id number] [place] [id number] Sep, [facility] [address] [id number] [place] [id number] August, [facility] [address] [id number] [place] [id number] August, [facility] [address] [id number] [place] [id number] August, [facility] [address] [id number] [place] [address] Jul, [facility] [address] [id number] [place] [address]- [address] Jul, [facility] [address] [id number] [place] 456[address] Jul, [facility] [address] [id number] [place] [id number] Jun, [facility] [address] [id number] [place] [address]- 0706 Jun, [facility] [address] [id number] [place] [address]86 Jun, [facility] [address] [id number] [place] 8474[address] Jun, [facility] [address] [id number] [place] [id number] Jun, [facility] [address] [id number] [place] [id number] Jun, [facility] [address] [id number] [place] [address] Jun, [facility] [address] [id number] [place] 8800[address] Feb, [facility] [address] [address]- [address] Feb, [facility] [address] [id number] [place] 786[address] Jan, [facility] [address] [id number] [place] [address] Nov, [facility] [address] [id number] [place] 4410[address] Oct, [facility] [address] [id number] [place] [id number] Oct, [facility] [address] [id number] [place] 3100[address] Sep, [facility] [address] [id number] Mar, [facility] [address] [facility] [id number] [place] [address]- [address] Nov, IMMUNIZATIONS No Known Immunizations SOCIAL HISTORY Never Assessed REASON FOR VISIT med refills PLAN OF CARE VITAL SIGNS MEDICATIONS Medication Instructions Dosage Frequency Start Date End Date Duration Status Spiriva HandiHaler 18 MCG Inhalation Once a day 1 capsule 24h Active Venlafaxine HCl 100 mg Orally Twice a day 1 tablet with food 12h Active Zyrtec Allergy 10 mg Orally [...] cholecystectomy 1979 [facility] Hospital[facility] History [facility] x 3 days for stomach flu 07/24/15 Hospitalization History [facility] for [facility]-given mag citrate for "blockage" 03/09/2016
--- OUTSIDE RECORDS SUMMARY | 2018-04-15 01:28 | XMS REPORT ---
Author Author KATERINA SMITH [facility] Address [address] [place] [address] Care Team Providers Care Centerless Grinder Tender Name Role Phone KATERINA SMITH Unavailable PROBLEMS Type Condition ICD9-CM Code VSL22-QC Code Onset Dates Condition Status SNOMED Code Problem Chronic airway obstruction, not elsewhere classified J44.9 Active 71211691 Problem Chronic rhinitis J31.0 Active 49608219 Problem Mood disorder F39 Active 95738847 Problem Dysthymia F34.1 Active 52989934 Problem Moderate single current episode of major depressive disorder F32.1 Active 10786307 Problem Overactive bladder N32.81 Active 833278420 Problem Lung nodule R91.1 Active 796344407 Problem Acute exacerbation of chronic obstructive pulmonary disease (COPD) J44.1 Active 277071828 Problem CAP (community acquired pneumonia) J18.9 Active 965767322 Problem Female stress incontinence 625.6 Active 51216532 Problem Chronic airway obstruction, not elsewhere classified 496 Active 28135461 Problem Lumbago 724.2 Active 432326137 Problem Nondependent tobacco use disorder 305.1 Active 700011122 Problem Sciatica 724.3 Active 99777915 Problem Essential hypertension I10 Active 83204118 ALLERGIES Substance Reaction Event Type Date Status Penicillin V Potassium rash Drug Allergy Mar, Active Aspirin rash Drug Allergy Mar, Active SOCIAL HISTORY No smoking Hx information available PLAN OF CARE Activity Details Follow Up prn Reason:worsening VITAL SIGNS Height 67 in 2016-04-01 Weight 285.8 lbs 2016-04-01 Temperature 97.8 degrees Fahrenheit 2016-04-01 Heart Rate 80 bpm 2016-04-01 Respiratory Rate 24 2016-04-01 Oximetry 92 % 2016-04-01 BMI 44.76 kg/m2 2016-04-01 Blood pressure systolic 128 mmHg 2016-04-01 Blood pressure diastolic 88 mmHg 2016-04-01 MEDICATIONS Medication Instructions Dosage Frequency Start Date End Date Duration Status Symbicort 80-4.5 MCG/ACT Inhalation Twice a day 2 puffs 12h Jul, Active Spiriva HandiHaler 18 MCG Inhalation Once a day 1 capsule 24h Active Protonix 40 mg Orally Once a day 1 tablet 24h Feb, Active Flonase 50 mcg/actuation Nasally Once a day 2 spray in each nostril 24h Apr, Active Albuterol Sulfate HFA 108 (90 Base) MCG/ACT Inhalation every 4 hrs 2 puffs as needed 4h 15 Dec, 2014 Active Promethazine-Codeine 6.25-10 MG/5ML Orally 2 times a day 5 ml as needed for severe cough 12h Mar, Active Zyrtec Allergy 10 mg Orally Once a day 1 capsule as needed 24h Sep, Active Lisinopril 10 mg Orally Once a day 1 tablet 24h Feb, Active Venlafaxine HCl 100 MG Orally Twice a day 1 tablet with food 12h Dec, Active RESULTS No Results PROCEDURES Procedure Date Ordered Related Diagnosis Body Site MEASURE BLOOD OXYGEN LEVEL Apr 01, 2016 Office Visit, Est Pt., Level 3 Apr 01, 2016 IMMUNIZATIONS No Known Immunizations
--- OUTSIDE RECORDS SUMMARY | 2018-04-15 01:29 | XMS REPORT ---
Author Author KATERINA SMITH [facility] Address [address] [place] [address] Care Team Providers Care Demolition Hammer Operator Name Role Phone KATERINA SMITH Unavailable PROBLEMS Type Condition ICD9-CM Code [id number] Code Onset Dates Condition Status SNOMED Code Problem Lumbago 724.2 Active 082029008 Problem Chronic rhinitis J31.0 Active 07944083 Problem Chronic airway obstruction, not elsewhere classified 496 Active 40097572 Assessment CAP (community acquired pneumonia) J18.9 Feb, Active 520667906 Problem Female stress incontinence 625.6 Active 29134456 Problem Nondependent tobacco use disorder 305.1 Active 949971330 Problem Sciatica 724.3 Active 66361729 Problem CAP (community acquired pneumonia) J18.9 Active 890051737 Problem Overactive bladder N32.81 Active 836947902 Problem Mood disorder F39 Active 16339493 Problem Chronic airway obstruction, not elsewhere classified J44.9 Active 49418938 Problem Lung nodule R91.1 Active 011213390 Problem Essential hypertension I10 Active 01989663 ALLERGIES Substance Reaction Event Type Date Status Penicillin V Potassium rash Drug Allergy Feb, Active Aspirin rash Drug Allergy Feb, Active SOCIAL HISTORY No smoking Hx information available PLAN OF CARE VITAL SIGNS Height 67 in 2016-02-24 Weight 284.4 lbs 2016-02-24 Heart Rate 99 bpm 2016-02-24 Respiratory Rate 20 2016-02-24 BMI 44.54 kg/m2 2016-02-24 Blood pressure systolic 128 mmHg 2016-02-24 Blood pressure diastolic 92 mmHg 2016-02-24 MEDICATIONS Medication Instructions Dosage Frequency Start Date End Date Duration Status Zyrtec Allergy 10 mg Orally Once a day 1 capsule as needed 24h Sep, Active Lisinopril 10 mg Orally Once a day 1 tablet 24h Feb, Active Benzonatate 100 MG Orally Three times a day 1 capsule as needed 8h Feb, Active Flonase 50 mcg/actuation Nasally Once a day 2 spray in each nostril 24h 23 Apr, 2013 Active Spiriva HandiHaler 18 MCG Inhalation Once a day 1 capsule 24h Active Protonix 40 mg Orally Once a day 1 tablet 24h Feb, Active Albuterol Sulfate HFA 108 (90 Base) MCG/ACT Inhalation every 4 hrs 2 puffs as needed 4h 15 Dec, 2014 Active Symbicort 80-4.5 MCG/ACT Inhalation Twice a day 2 puffs 12h 18 Jul, 2015 Active Venlafaxine HCl 100 MG Orally Twice a day 1 tablet with food 12h Dec, Active RESULTS No Results PROCEDURES Procedure Date Ordered Related Diagnosis Body Site Office Visit, Est Pt., Level 3 Feb 24, 2016 IMMUNIZATIONS No Known Immunizations
--- OUTSIDE RECORDS SUMMARY | 2018-04-15 01:29 | XMS REPORT ---
Author Author KATERINA SMITH Organization [employer] Address Unknown Phone Unavailable Care Team Providers Care Upper Leather Sorter Name Role Phone KATERINA SMITH CP Unavailable [...] classified J44.9 Active Medications No Known Medications Procedures Procedure Coding System Code Date VENIPUNCT, ROUTINE* CPT-4 81324 Jan 13, 2016 COMPREHEN METABOLIC PANEL CPT-4 26205 Jan 13, 2016 Results Name Result Date Reference Range Unit Abnormality Flag ROUTINE VENIPUNCTURE Summary Purpose [employer] Submission
--- OUTSIDE RECORDS SUMMARY | 2018-04-15 01:29 | XMS REPORT ---
Author Author KATERINA SMITH [facility] eClinical[employer] Address Unknown Phone Unavailable Care Team Providers Care A Operator Name Role Phone KATERINA SMITH CP Unavailable Allergies, Adverse Reactions, Alerts Substance Reaction Event Type Penicillin V Potassium rash Drug Allergy Aspirin rash Drug Allergy Problems Problem Type Condition Code Onset Dates Condition Status Problem Nondependent tobacco use disorder 305.1 Active Problem Lumbago 724.2 Active Problem Sciatica 724.3 Active Problem Lung nodule R91.1 Active Problem Essential hypertension I10 Active Problem Overactive bladder N32.81 Active Problem Chronic rhinitis J31.0 Active Problem Chronic airway obstruction, not elsewhere classified 496 Active Problem Mood disorder F39 Active Problem Chronic airway obstruction, not elsewhere classified J44.9 Active Assessment Essential hypertension I10 Active Assessment Chronic airway obstruction, not elsewhere classified J44.9 Active Assessment Overactive bladder N32.81 Active Problem Female stress incontinence 625.6 Active Medications Medication Code System Code Instructions Start Date End Date Status Dosage Zyrtec Allergy [facility] [address]-34 10 MG Orally Once a day September 20, 2014 1 capsule as needed Spiriva HandiHaler [facility] [address]-47 18 MCG Inhalation Once a day 1 capsule Flonase NDC 0 50 mcg/actuation Apr 27, 2013 1 sprays by Nasal route 2 times per day in each nostril Symbicort [facility] [address]-43 80-4.5 MCG/ACT Inhalation Twice a day July 2 puffs Lisinopril [facility] [address]-53 10 mg Orally Once a day Feb 20, 2014 1 tablet Albuterol Sulfate HFA [facility] [address]-91 108 (90 Base) MCG/ACT Inhalation every 4 hrs Dec 18, 2014 2 puffs as needed Venlafaxine HCl [facility] [address]-52 75 MG Orally Twice a day Dec 07, 2014 1 tablet with food Procedures Procedure Coding System Code Date Office Visit, Est Pt., Level 3 CPT-4 87819 Nov 07, 2015 Vital Signs Date/Time: Nov 07, 2015 Cardiac Monitoring Heart Rate 88 bpm Weight 280.2 lbs Height 67 in BMI 43.88 Index Blood Pressure Diastolic 68 mmHg Blood Pressure Systolic 132 mmHg Results No Known Results Summary Purpose eClinicalWorks Submission
--- OUTSIDE RECORDS SUMMARY | 2018-04-15 01:29 | XMS REPORT ---
Author Author KATERINA SMITH Organization [employer] Address Unknown Phone Unavailable Care Team Providers Care Surg Tech Name Role Phone KATERINA SMITH CP Unavailable [...] Start Date End Date Status Dosage Lisinopril [facility] [address]-65 10 MG Orally Once a day Feb 20, 2014 1 tablet Results No Known Results Summary Purpose THERAVECTYSinicalWorks Submission
--- OUTSIDE RECORDS SUMMARY | 2018-04-15 01:29 | XMS REPORT ---
Author Author KATERINA SMITH Organization [employer] Address Unknown Phone Unavailable Care Team Providers Care Bi Specialist Name Role Phone KATERINA SMITH CP Unavailable [...]
--- OUTSIDE RECORDS SUMMARY | 2018-04-15 01:29 | XMS REPORT ---
Author Author KATERINA SMITH [facility] Address [address] [place] [address] Care Team Providers Care Detention Sergeant Name Role Phone KATERINA SMITH Unavailable PROBLEMS Type Condition ICD9-CM Code DHY43-SK Code Onset Dates Condition Status SNOMED Code Problem Overactive bladder N32.81 Active 516528319 Problem Acute exacerbation of chronic obstructive pulmonary disease (COPD) J44.1 Active 096823023 Problem CAP (community acquired pneumonia) J18.9 Active 986239381 Problem Hereditary and idiopathic neuropathy, 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 Active 35294159 Problem Back pain with left-sided radiculopathy M54.10 Active 810289119 Problem Dysthymia F34.1 Active 53700090 Problem Moderate single current episode of major depressive disorder F32.1 Active 56457658 Problem Sciatica of left side M54.32 Active 37449128 Problem Kidney stone N20.0 Active 87180676 Problem Female stress incontinence 625.6 Active 39593524 Problem Essential hypertension I10 Active 44410222 Problem Chronic airway obstruction, not elsewhere classified J44.9 Active 11545033 Problem Nondependent tobacco use disorder 305.1 Active 902072715 Problem Mood disorder F39 Active 23583314 Problem Chronic rhinitis J31.0 Active 53480549 Problem Lung nodule R91.1 Active 968774905 ALLERGIES No Information ENCOUNTERS Encounter Location Date Diagnosis [facility] [address] [id number] [place] [id number] Sep, [facility] [address] [id number][place] [id number] Sep, [facility] [address] [id number] [place] [id number] August, [facility] [address] [id number], [place] [id number] August, Dysthymia F34.1 ; Chronic airway obstruction, not elsewhere classified J44.9 ; Back pain with left-sided radiculopathy M54.10 and BMI 45.0-49.9, adult Z68.42 [place] [id number] [place] [address] [id number] Jul, Urinary tract infection without hematuria, site unspecified N39.0 and Fatigue, unspecified type R53.83 [place] [id number] [place] [address] [id number] Jul, Chronic airway obstruction, not elsewhere classified J44.9 [place] [id number] [place] [address] [id number] Jul, BMI 45.0-49.9, adult Z68.42 and Infective urethritis N34.[address] [id number] Jul, [address] [id number] Jun, Back pain with left-sided radiculopathy M54.10 [place] [id number] [place] [address] [id number] May, Chronic airway obstruction, not elsewhere classified J44.9 and Encounter for immunization Z23 [place] [id number] [place] [address] [id number] Apr, BMI 45.0-49.9, adult Z68.42 ; Back pain with left-sided radiculopathy M54.10 ; Chronic airway obstruction, not elsewhere classified J44.9 and Dysthymia F34.1 [place] [id number] [place] [address] [id number] Mar, Sciatica of left side M54.32 ; Back pain with left-sided radiculopathy M54.10 and Hereditary and idiopathic neuropathy, 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 [place] [id number] [place] [address] [id number] Mar, Flank pain R10.9 ; Urinary urgency R39.15 and Chronic airway obstruction, not elsewhere classified J44.9 [place] [id number] [place] [address] [id number] Mar, Dysthymia F34.1 [facility] [address] [id number] [place] [id number] Feb, [facility] [address]00565100[place], [place] [address] Feb, [facility] [id number] [place] [address] [id number] Feb, Hematuria, unspecified type R31.9 ; Kidney stone N20.0 and BMI 40.0-44.9, adult Z68.41 [facility] [address] [place], [id number] [address] Feb, [facility] [address] [facility] [address] [id number] [place] [id number] Feb, [facility] [id number] [place] [address] [id number] Feb, [facility] [id number] [place] [address] [id number] Feb, Dysthymia F34.1 ; Encounter for immunization Z23 ; Acute nasopharyngitis J00 ; Chronic rhinitis J31.0 and Chronic airway obstruction, not elsewhere classified J44.9 [facility] [address] [address] Jan, Well woman exam Z01.419 ; Left breast lump N63.20 and BMI 40.0-44.9, adult Z68.41 [facility] [id number] [place] [address] [id number] Jan, Muscle cramps R25.2 [facility] [id number], [place] [id number] Dec, Dysthymia F34.1 [facility] [id number] [place] [address] [id number] Dec, Muscle cramps R25.2 [facility] [id number], [place] [id number] Nov, Dysthymia F34.1 [facility] [id number], [place] [id number] Oct, [facility] [place] [id number] [place] [address] [id number] Oct, Chronic airway obstruction, not elsewhere classified J44.9 ; Moderate single current episode of major depressive disorder F32.1 ; Chronic rhinitis J31.0 and Muscle cramps R25.2 [facility] [place] [id number] [place] [address] [id number] Sep, Acute nasopharyngitis J00 [facility] [id number] [place] [address] Jun, Acute exacerbation of chronic obstructive pulmonary disease (COPD) J44.1 [facility] [place] [id number] [place] [address] [id number] Jun, Acute nasopharyngitis J00 [facility] [id number] [place] [address] [id number] Jun, [facility] [id number] [place] [address] [id number]- [address] Apr, [facility] [place] [id number] [place] [address] [id number] Mar, Acute nasopharyngitis J00 [facility] [id number] [place] [address] [id number] Mar, [facility] [place] [id number] [place] [address] [id number] Mar, [facility] [place] [id number] [place] [address] [id number] Feb, CAP (community acquired pneumonia) J18.9 and Chronic rhinitis J31.0 [facility] [place] [id number] [place] [address] [id number] Feb, CAP (community acquired pneumonia) J18.9 [facility] [place] [id number] [place] [address] [id number] Feb, CAP (community acquired pneumonia) J18.9 [facility] [place] [id number] [place] [address] [id number] Feb, [facility] [place] [id number], [place] [id number] Jan, Mood disorder F39 [facility] [address] [id number] [address] Jan, [facility] [place] [id number], [place] [id number] Jan, Lung nodule R91.1 [facility] [place] [id number] [place] [address] [id number] Jan, Lung nodule R91.1 [facility] [place] [id number] [place] [address] [id number] Jan, Lung nodule R91.1 [facility] [place] [id number] [place] [address] [id number] Jan, Lung nodule R91.1 [facility] [place] [id number] [place] [address] [id number] Jan, [facility] [id number] [place] [address] [id number] Nov, Overactive bladder N32.81 ; Chronic airway obstruction, not elsewhere classified J44.9 and Essential hypertension I10 [facility] [id number] [place] [address] [id number] Oct, [facility] [id number] [place] [address] [id number] Oct, Acute non-recurrent sinusitis, unspecified location J01.90 ; Cough R05 and Tobacco dependence F17.200 [facility] [id number] [place] [address] [id number] Sep, Overactive bladder N32.81 and Chronic airway obstruction, not elsewhere classified J44.9 [facility] [id number] [place] [address] [id number] August, Chronic airway obstruction, not elsewhere classified J44.9 ; Mood disorder F39 and Urinary frequency R35.0 [facility] [id number] [place] [address] [id number] August, [facility] [id number] [place] [address] [id number] Jul, Lung nodule R91.1 ; Chronic airway obstruction, not elsewhere classified J44.9 and Urinary tract infection without hematuria, site unspecified N39.0 [facility] [place] [id number] [place] [address] [id number] Jul, Lung nodule R91.1 [facility] [place] [id number] [place] [address] [id number] Jul, [facility] [address] [id number] Jul, Diarrhea R19.7 and Lung nodule R91.1 [facility] [place] [id number] [place] [address] [id number] Apr, Upper respiratory tract infection, unspecified type J06.9 and COPD exacerbation J44.1 [place] [id number] [place] [address] [id number] Mar, [place] [address] [place] [address] [id number] Feb, Mood disorder F39 and Essential hypertension I10 [place] [address] [place] [address] [id number] Jan, Essential hypertension I10 ; Mood disorder F39 ; Chronic airway obstruction, not elsewhere classified J44.9 and Chronic rhinitis J31.0 [address] [place] [address] [id number] Jan, [address]00565100[place] [phone] Jan, [facility] [place] [address] [facility] [id number] [place] [phone] Jan, [facility] [address] [place] [address] [id number] Jan, [facility] [place] [id number] [place] [address] [id number] Dec, Bronchitis [address]00565100[place] [id number] Dec, [facility] [place] [id number] [place] [address] [id number] Sep, Rhinitis 472.0 [facility] [place] [facility] [address] [facility] [id number], [place] [address] Jul, [facility] [place] [facility] [address] [id number], [place] [address] Jul, [facility] [address] [facility] [id number], [place] [id number] Jun, [facility] [place] [facility] [address] [facility] [id number] [place] [address]6 Jun, [facility] [place] [facility] [address] [facility] [id number], [place] [address] 9[address] Jun, [facility] [address] [facility] [id number], [place] [id number] May, [facility] [place] [facility] [address]00565100[place], [place] [address] May, [facility] [id number], [place] [id number] Apr, [facility] [place] [facility] [address]00565100[place] [address] 1721 Apr, [facility] [id number], [place] [id number] Mar, [facility] [place] [facility] [address] [id number] [address] 24[address] Mar, [facility] [id number], [place] [id number] Mar, [facility] [place] [facility] [address] [facility] [id number], [place] [address] 25[address] Mar, [facility] [address] [facility] [id number], [place] [id number] Mar, [facility] [place] [facility] [address] [id number], [place] [address] Mar, [facility] [address] [facility] [id number], [place] [id number] Mar, [facility] [place] [facility] [address] [id number], [place] [address] 39[address] Mar, [facility] [address] [facility] [id number] [place] [id number] Feb, [facility] [place] [facility] [address] [facility] [id number] [address]- [address] Feb, [facility] [address] [facility] [id number] [place] [id number] Feb, [facility] [place] [facility] [address] [facility] [id number][place] [address]- 79[address] Feb, [facility] [address] [facility] [id number] [place] [id number] Feb, [facility] [place] [facility] [address] [facility] [id number][place] [address] 96[address] Feb, [facility] [address] [id number] [place] [id number] Jan, [facility] [place] [facility] [address]65100[place], [place] [address]- 9661 Jan, [facility] [address] [facility] [id number] [place] [id number] Jan, [facility] [place] [facility] [address] [facility] [id number], [place] 6700[place]- [address] Jan, [facility] [address] [id number], [place] [id number] Sep, [facility] [place] [facility] [address] [facility] [id number][place] [address]- 16[address] Sep, [facility] [place] [facility] [address] [facility] [id number], [place] [address]- 4[address] Sep, [facility] [address] [facility] [id number] [place] [id number] Sep, [facility] [place] [facility] [address] [facility] [id number][place] 042038- 8164 Sep, [facility] [place] [facility] [address] [facility] [id number][place] [address]- 1094 Sep, [facility] [address] [facility] [id number] [place] [id number] Jul, [facility] [place] [facility] [address] [facility] [id number], [place] [address]- [address] Jul, [facility] [address] [facility] [id number], [place] [id number] Jun, [facility] [place] [facility] [address] [facility] [id number], [place] [address]- 4[address] Jun, [facility] [address] [facility] [id number], [place] [phone] Jun, [facility] [address] [facility] [id number], [place] [address]- 4[address] Jun, [facility] [address] [facility] [id number], [place] [id number] Apr, [facility] [place] [facility] [address]65100[place], [place] [address]- 8[address] Apr, [facility] [address] [id number], [place] [id number] Mar, [facility] [place] [facility] [address]00565100[place], [place] [address]- 99[address] Mar, [facility] [id number], [place] [id number] Mar, [facility] [place] [facility] [address] [id number], [place] [address]- 5[address] Mar, [facility] [address] [facility] [id number], [place] [id number] Feb, [facility] [place] [facility] [address] [facility] [id number], [place] [address]- 9[address] Feb, [facility] [address] [facility] [id number], [place] [id number] Jan, [facility] [place] [facility] [address] [facility] [id number], [place] [address]- 8[address] Jan, [facility] [address] [facility] [id number], [place] [id number] 30 Dec, 2012 [facility] [place] [facility] [address] [facility] [id number] [place] [address]- 2829 16 Dec, 2012 [facility] [address] [id number] [place] [address]79[address] Dec, [facility] [address] [id number] [place] [id number] Dec, [facility] [address] [id number] [place] [id number] Oct, [facility] [address] [facility] [id number], [place] [address]- [address] Oct, [facility] [address] [facility] [id number] [place] [address]- 5[address] Oct, [facility] [address] [id number] [place] [id number] Oct, [facility] [address] [id number] [place] 29[address] Sep, [facility] [address] [id number] [place] [id number] August, [facility] [address] [id number] [place] [id number] August, [facility] [address] [id number] [place] [id number] August, [facility] [address] [id number] [place] [id number] Jul, [facility] [address] [facility] [id number], [place] [address]- 2540 Jul, [facility] [address] [id number] [place] [id number] Jul, [facility] [address] [id number] [place] [id number] Jun, [facility] [place] [facility] [address] [facility] [id number], [place] [address]- 98[address] Jun, [facility] [address] [id number] [place] [id number] Jun, [facility] [address] [id number], [place] [address] Jun, [facility] [id number], [place] [id number] Jun, [facility] [id number] [place] [address] [id number] Jun, [facility] [id number], [place] [id number] Jun, [facility] [id number] [place] [address] [id number] Feb, [facility] [id number] [place] [address] 18[address]- 2546 Feb, [facility] [id number] [place] [address] [id number] Jan, [facility] [id number] [place] [address] [id number] Nov, [facility] [id number] [place] [address] [id number] Oct, [facility] [id number] [place] [address] [id number] Oct, [facility] [id number] [place] [address] [id number] Sep, [facility] [id number] [place] [address] 269[address]- 2546 Mar, [facility] [id number] [place] [address] 532[address]- 2549 Nov, IMMUNIZATIONS No Known Immunizations SOCIAL HISTORY Never Assessed REASON FOR VISIT Rx request PLAN OF CARE VITAL SIGNS MEDICATIONS Medication Instructions Dosage Frequency Start Date End Date Duration Status Duloxetine HCl 30 MG Orally Twice a day 1 capsule 12h Nov, 30 day(s) Active RESULTS No Results PROCEDURES No Known procedures INSTRUCTIONS MEDICATIONS ADMINISTERED No Known Medications MEDICAL (GENERAL) HISTORY Type Description Date Medical History hypertension Medical History allergies Medical History chronic obstructive pulmonary disease (COPD) Medical History anxiety Medical History sciatica Medical History acid reflux Medical History Pneumococcal inj (2012) Medical History depression Surgical History [facility]olecystectomy [facility] History [facility] 3 days for stomach flu 07/24/15 Hospitalization History [facility]-given mag citrate for "blockage" 03/09/2016
--- OUTSIDE RECORDS SUMMARY | 2018-04-15 01:29 | XMS REPORT ---
Author Author KATERINA SMITH [facility] eClinicalWorks Address Unknown Phone Unavailable Care Team Providers Care Fern Picker Name Role Phone KATERINA SMITH CP Unavailable Allergies, Adverse Reactions, Alerts Substance Reaction Event Type Penicillin V Potassium rash Drug Allergy Aspirin rash Drug Allergy Problems Problem Type Condition Code Onset Dates Condition Status Problem Nondependent tobacco use disorder 305.1 Active Problem Lumbago 724.2 Active Problem Sciatica 724.3 Active Assessment Mood disorder F39 Active Problem Female stress incontinence 625.6 Active Problem Lung nodule R91.1 Active Problem Essential hypertension I10 Active Problem Overactive bladder N32.81 Active Problem Chronic rhinitis J31.0 Active Problem Chronic airway obstruction, not elsewhere classified 496 Active Problem Mood disorder F39 Active Problem Chronic airway obstruction, not elsewhere classified J44.9 Active Medications Medication Code System Code Instructions Start Date End Date Status Dosage Flonase NDC 0 50 mcg/actuation Apr 27, 2013 1 sprays by Nasal route 2 times per day in each nostril Spiriva HandiHaler [facility] [address]-26 18 MCG Inhalation Once a day 1 capsule Nexium [facility] [address]-57 20 mg Orally Once a day Feb 03, 2016 1 capsule Symbicort [facility] [address]-55 80-4.5 MCG/ACT Inhalation Twice a day July 2 puffs Albuterol Sulfate HFA [facility] [address]-80 108 (90 Base) MCG/ACT Inhalation every 4 hrs Dec 18, 2014 2 puffs as needed Lisinopril [facility] [address]-78 10 mg Orally Once a day Feb 20, 2014 1 tablet Venlafaxine HCl [facility] [address]-73 100 MG Orally Twice a day Dec 07, 2014 1 tablet with food Zyrtec Allergy [facility] [address]-78 10 mg Orally Once a day September 20, 2014 1 capsule as needed Procedures Procedure Coding System Code Date Office Visit, Est Pt., Level 3 CPT-4 74839 Feb 03, 2016 Vital Signs Date/Time: Feb 03, 2016 Cardiac Monitoring Heart Rate 98 bpm Weight 287.6 lbs Height 67 in BMI 45.04 Index Blood Pressure Diastolic 70 mmHg Blood Pressure Systolic 110 mmHg Results No Known Results Summary Purpose eClinicalWorks Submission
--- OUTSIDE RECORDS SUMMARY | 2018-04-15 01:29 | XMS REPORT ---
Author Author KATERINA SMITH Organization e[employer] Address Unknown Phone Unavailable Care Team Providers Care Cyber Systems Operations Specialist Name Role Phone KATERINA SMITH CP [...]
--- OUTSIDE RECORDS SUMMARY | 2018-04-15 01:29 | XMS REPORT ---
Author Author KATERINA SMITH Organization e[employer] Address Unknown Phone Unavailable Care Team Providers Care Freight Booker Name Role Phone KATERINA SMITH CP Unavailable Allergies No Known Allergies Problems Problem Type Condition Code Onset Dates Condition Status Problem Nondependent tobacco use disorder 305.1 Active Problem Lumbago 724.2 Active Problem Sciatica 724.3 Active Problem Female stress incontinence 625.6 Active Problem Lung nodule R91.1 Active Problem Essential hypertension I10 Active Problem Overactive bladder N32.81 Active Problem Chronic rhinitis J31.0 Active Problem Chronic airway obstruction, not elsewhere classified 496 Active Problem Mood disorder F39 Active Problem Chronic airway obstruction, not elsewhere classified J44.9 Active Medications Medication Code System Code Instructions Start Date End Date Status Dosage Protonix [facility] [address]-15 40 mg Orally Once a day Feb 05, 2016 1 tablet Results No Known Results Summary Purpose eClinicalWorks Submission
--- OUTSIDE RECORDS SUMMARY | 2018-04-15 01:30 | XMS REPORT ---
Author Author KATERINA SMITH [facility] Address [address] [place] [address] Care Team Providers Care President Finance [employer] Name Role Phone KATERINA SMITH Unavailable PROBLEMS Type Condition ICD9-CM Code DTY15-KG Code Onset Dates Condition Status SNOMED Code Problem Overactive bladder N32.81 Active 144744041 Problem Acute exacerbation of chronic obstructive pulmonary disease (COPD) J44.1 Active 052312118 Problem CAP (community acquired pneumonia) J18.9 Active 224353751 Problem Hereditary and idiopathic neuropathy, 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 Active 56071881 Problem Sciatica of left side M54.32 Active 04485033 Problem Dysthymia F34.1 Active 42678052 Problem Moderate single current episode of major depressive disorder F32.1 Active 56779906 Problem Back pain with left-sided radiculopathy M54.10 Active 699565623 Problem Kidney stone N20.0 Active 62922888 Problem Female stress incontinence 625.6 Active 42778759 Problem Chronic airway obstruction, not elsewhere classified 496 Active 57602150 Problem Lumbago 724.2 Active 687176447 Problem Sciatica 724.3 Active 94830379 Problem Mood disorder F39 Active 58267897 Problem Essential hypertension I10 Active 86919030 Problem Nondependent tobacco use disorder 305.1 Active 203699414 Problem Chronic airway obstruction, not elsewhere classified J44.9 Active 54924494 Problem Chronic rhinitis J31.0 Active 36378825 Problem Lung nodule R91.1 Active 115421058 ALLERGIES Substance Reaction Event Type Date Status Penicillin V Potassium rash Drug Allergy Nov, Active Aspirin rash Drug Allergy Nov, Active ENCOUNTERS Encounter Location Date Diagnosis [facility] [address] [facility] [id number] [place] [id number] August, [address] [id number] [place] [address] Jul, Urinary tract infection without hematuria, site unspecified N39.0 and Fatigue, unspecified type R53.83 [address] [id number] Jul, Chronic airway obstruction, not elsewhere classified J44.[address] [place] [address] [id number] Jul, BMI 45.0-49.9, adult Z68.42 and Infective urethritis N34.2 [place] [id number] [place] [address] [id number] Jul, [place] [id number] [place] [address] [id number] Jun, Back pain with left-sided radiculopathy M54.10 [place] [id number] [place] [address] [id number] May, Chronic airway obstruction, not elsewhere classified J44.9 and Encounter for immunization Z23 [place] [id number] [place] [address] [id number] Apr, BMI 45.0-49.9, adult Z68.42 ; Back pain with left-sided radiculopathy M54.10 ; Chronic airway obstruction, not elsewhere classified J44.9 and Dysthymia F34.[address] [place] [address] [id number] Mar, Sciatica of left side M54.32 ; Back pain with left-sided radiculopathy M54.10 and Hereditary and idiopathic neuropathy, 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 [address] [address] Mar, Flank pain R10.9 ; Urinary urgency R39.15 and Chronic airway obstruction, not elsewhere classified J44.[id number] [place] [address] [id number] Mar, Dysthymia F34.1 [facility] [address] [id number] [id number] Feb, [facility] [place] [address] [facility] [id number][place] [address] [address] Feb, [facility] [address] [facility] [id number] [place] [id number] Feb, Hematuria, unspecified type R31.9 ; Kidney stone N20.0 and BMI 40.0-44.9, adult Z68.41 [facility] [address] [id number] [address] Feb, [place] [address] [id number], [place] [id number] Feb, [facility] [id number] [place] [id number] Feb, [facility] [id number] [place] [address] [id number] Feb, Encounter for immunization Z23 ; Dysthymia F34.1 ; Acute nasopharyngitis J00 ; Chronic rhinitis J31.0 and Chronic airway obstruction, not elsewhere classified J44.9 [facility] [place] [address]00565100[place] [address] Jan, Well woman exam Z01.419 ; Left breast lump N63.20 and BMI 40.0-44.9, adult Z68.41 [facility] [id number] [place] [id number] Jan, Muscle cramps R25.2 [facility] [id number] [place] [id number] Dec, Dysthymia F34.1 [facility] [id number] [place] [address] [id number] Dec, Muscle cramps R25.2 [facility] [id number] [place] [address] Nov, Dysthymia F34.1 [facility] [id number] [place] [address] Oct, [facility] [id number] [place] [address] Oct, Chronic airway obstruction, not elsewhere classified J44.9 ; Moderate single current episode of major depressive disorder F32.1 ; Chronic rhinitis J31.0 and Muscle cramps R25.2 [facility] [id number] [place] [address] [id number] Sep, Acute nasopharyngitis J00 [facility] [address]00565100[place] [address] Jun, Acute exacerbation of chronic obstructive pulmonary disease (COPD) J44.1 [facility] [address] [place] [id number] [place] [address] [id number] Jun, Acute nasopharyngitis J00 [facility] [place] [address] [id number] [place] [address] [id number] Jun, [facility] [place] [address] [place] [id number] [place] [address] Apr, [facility] [address] [id number] [place] [address] [id number] Mar, Acute nasopharyngitis J00 [facility] [address] [id number] [place] [address] [id number] Mar, [facility] [address] [id number] [place] [address] [id number] Mar, [facility] [address] [id number] [place] [address] [id number] Feb, CAP (community acquired pneumonia) J18.9 and Chronic rhinitis J31.0 [facility] [address] [place] [id number] [place] [address] [id number] Feb, CAP (community acquired pneumonia) J18.9 [facility] [place] [address] [id number] [place] [address] [id number] Feb, CAP (community acquired pneumonia) J18.9 [facility] [place] [id number] [place] [address] [id number] Feb, [facility] [address] [place] [id number] [place] [address] [id number] Jan, Mood disorder F39 [facility] [address]00565100[place] [address] Jan, [facility] [address] [place] [id number] [place] [address] [id number] Jan, Lung nodule R91.1 [facility] [address] [place] [id number] [place] [address] [id number] Jan, Lung nodule R91.1 [facility] [address] [id number] Jan, Lung nodule R91.1 [place] [address] [place] [id number] [place] [address] [id number] Jan, Lung nodule R91.1 [facility] [address] [id number] Jan, [address] [id number] Nov, Overactive bladder N32.81 ; Chronic airway obstruction, not elsewhere classified J44.9 and Essential hypertension I10 [address] [id number] Oct, [address] [id number] Oct, Acute non-recurrent sinusitis, unspecified location J01.90 ; Cough R05 and Tobacco dependence F17.[address] [id number] Sep, Overactive bladder N32.81 and Chronic airway obstruction, not elsewhere classified J44.9 [place] [address] [place] [address] [id number] August, Chronic airway obstruction, not elsewhere classified J44.9 ; Mood disorder F39 and Urinary frequency R35.0 [place] [address] [place] [address] [id number] August, [place] [id number] [place] [address] [id number] Jul, Lung nodule R91.1 ; Chronic airway obstruction, not elsewhere classified J44.9 and Urinary tract infection without hematuria, site unspecified N39.0 [place] [address] [place] [address] [id number] Jul, Lung nodule R91.1 [place] 13822[place] [id number] Jul, [facility] [place] [id number] [place] [address] [id number] Jul, Diarrhea R19.7 and Lung nodule R91.1 [facility] [address] [place] [id number] [place] [address] [id number] Apr, Upper respiratory tract infection, unspecified type J06.9 and COPD exacerbation J44.1 [facility] [place] [address] [place] [id number] [place] [address] [id number] Mar, [facility] [address] [place] [id number] [place] [address] [id number] Feb, Mood disorder F39 and Essential hypertension I10 [place] [address] [place] [address] [id number] Jan, Essential hypertension I10 ; Mood disorder F39 ; Chronic airway obstruction, not elsewhere classified J44.9 and Chronic rhinitis J31.0 [facility] [place] [address]005[address]100[place] [address] Jan, [place] [address]00565100[place] [id number] Jan, [facility] [address] [id number][place] [id number] Jan, [facility] [place] [address] [facility] [id number] [place] [phone] Jan, [facility] [place] [address] [place] [id number] [place] [id number] Dec, Bronchitis [address] [facility] [id number] [id number] Dec, [facility] [place] [address] [facility] [id number] [place] [address] [id number] Sep, Rhinitis 472.0 [facility] [address]00565100[place], [place] [address] [address] Jul, [facility] [address] [place] [id number] [address] Jul, [facility] [address] [id number] [place] [id number] Jun, [facility] [place] [facility] [address] [facility] [id number] [address] Jun, [facility] [place] [facility] [address] [facility] [id number] [address] Jun, [facility] [address] [facility] [id number] [place] [id number] May, [facility] [place] [facility] [address] [facility] [id number] [address] May, [facility] [address] [facility] [id number] [place] [id number] Apr, [facility] [place] [facility] [address] [facility] [id number] [address] Apr, [facility] [id number] [place] [id number] Mar, [facility] [place] [facility] [address] [facility] [id number] [address] Mar, [facility] [address] [facility] [id number] [place] [id number] Mar, [facility] [place] [facility] [address]00565100[place] [address] Mar, [facility] [address] [facility] [id number] [place] [id number] Mar, [facility] [place] [facility] [address] [facility] [id number] [address] Mar, [facility] [address] [facility] [id number] [place] [id number] Mar, [facility] [place] [facility] [address] [facility] [id number] [address]- 25[address] Mar, [facility] [address] [facility] [id number] [place] [address]59387[address] Feb, [facility] [place] [facility] [address]00565100[place] [address] Feb, [facility] [address] [id number] [place] [id number] Feb, [facility] [place] [facility] [address] [facility] [id number] [address] Feb, [facility] [address] [facility] [id number] [place] [id number] Feb, [facility] [place] [facility] [address] [facility] [id number] [address]- 49[address] Feb, [facility] [address] [facility] [id number] [place] 136[address] Jan, [facility] [place] [facility] [address] [facility] [id number] [address] 3[address] Jan, [facility] [address] [facility] [id number] [place] 845658936 Jan, [facility] [place] [facility] [address] [facility] [id number] [address] 27[address] Jan, [facility] [address] [facility] [id number] [place] [id number] Sep, [facility] [place] [facility] [address] [facility] [id number] [address] Sep, [facility] [place] [facility] [address] [facility] [id number] [address]- 1108 Sep, [facility] [address] [facility] [id number] [place] [id number] Sep, [facility] [place] [facility] [address] [facility] [id number] [address]- 25[address] Sep, [facility] [place] [facility] [address] [facility] [id number] [address]- 7[address] Sep, [facility] [address] [facility] [id number] [place] [id number] Jul, [facility] [place] [facility] [address] [facility] [id number] [address] 59[address] Jul, [facility] [address] [facility] [id number] [place] [id number] Jun, [facility] [address] [facility] [id number] [address]- [address] Jun, [facility] [address] [facility] [id number] [place] [id number] Jun, [facility] [address] [facility] [id number] [address]- 89[address] Jun, [facility] [address] [facility] [id number] [place] 723514676 Apr, [facility] [place] [facility] [address] [facility] [id number] [address]- 279[address] Apr, [facility] [address] [facility] [id number] [place] 857327349 Mar, [facility] [place] [facility] [address] [facility] [id number] [address]- 3376 Mar, [facility] [id number] [place] 4[address] Mar, [facility] [place] [facility] [address] [facility] [id number] [address]- 0[address] Mar, [facility] [address] [facility] [id number] [place] 482949852 Feb, [facility] [place] [facility] [address] [facility] [id number] [address]- 4516 Feb, [facility] [address] [facility] [id number] [place] 336750280 Jan, [facility] [place] [facility] [address] [facility] [id number] [address] 8[address] Jan, [facility] [address] [facility] [id number] [place] [address]185[address] 30 Dec, 2012 [facility] [place] [facility] [address] [facility] [id number] [address]- 25[address] 16 Dec, 2012 [facility] [address] [id number] [place] 198536500 Dec, [facility] [address] [facility] [id number] [place] 141747723 Dec, [facility] [address] [id number] [place] [id number] Oct, [facility] [address] [facility] [id number] [place] [address]- [address] Oct, [facility] [place] [facility] [address] [facility] [id number] [address]- 25[address] Oct, [facility] [address] [id number] [place] [id number] Oct, [facility] [address] [id number] [place] [id number] Sep, [facility] [address] [id number] [place] [id number] August, [facility] [address] [id number] [place] [id number] August, [facility] [address] [id number] [place] 987226941 August, [facility] [address] [id number] [place] [id number] Jul, [facility] [address] [facility] [id number][place] [address]- [address] Jul, [facility] [address] [id number] [place] [id number] Jul, [facility] [address] [id number] [place] [id number] Jun, [facility] [address] [facility] [id number] [address]- [address] Jun, [facility] [address] [id number] [place] [id number] Jun, [facility] [address] [id number] [place] 520161805 Jun, [facility] [address] [id number] [place] [id number] Jun, [facility] [address] [id number] [place] 724961269 Jun, [facility] [address] [id number] [place] 28[address]345 Jun, [facility] [address] [facility] [id number] [place], [place] [id number] Feb, [facility] [place] [address]005[address]100[place] [address]- 25[address] Feb, [facility] [address] [place] [id number] [place] 36[address]3881 Jan, [facility] [id number] [place], [place] 22[address] Nov, [facility] [id number] [place], [place] 128347750 Oct, [facility] [id number] [place] 117[address]357 Oct, [facility] [address] [place] [id number] [place] 833263889 Sep, [facility] [place] [address]00565100[place] [address]- 25[address] Mar, [facility] [place] [address]005[address]100[place] [address]- 2546 Nov, IMMUNIZATIONS No Known Immunizations SOCIAL HISTORY Never Assessed REASON FOR VISIT Depression follown up, follow up on muscle cramps Kate PEREZ PLAN OF CARE Activity Details Follow Up 2 Weeks Reason:dysthmia VITAL SIGNS Height 67 in 2016-11-30 Weight 279.6 lbs 2016-11-30 Temperature 97.9 degrees Fahrenheit 2016-11-30 Heart Rate 97 bpm 2016-11-30 Respiratory Rate 18 2016-11-30 BMI 43.79 kg/m2 2016-11-30 Blood pressure systolic 118 mmHg 2016-11-30 Blood pressure diastolic 68 mmHg 2016-11-30 MEDICATIONS Medication Instructions Dosage Frequency Start Date End Date Duration Status Albuterol Sulfate HFA cfc free 90 mcg/inh Inhalation every 4 hrs 2 puffs as needed 4h 15 Dec, 2014 Active Symbicort 80-4.5 MCG/ACT Inhalation Twice a day 2 puffs 12h 18 Jul, 2015 Active Methocarbamol 500 mg Orally 3 times a day 1 tablets 8h Oct, Active Pantoprazole Sodium 40 MG TAKE ONE (1) TABLET BY MOUTH DAILY... Active Flonase 50 mcg/act Nasally Once a day 2 spray in each nostril 24h Apr, Active Spiriva HandiHaler 18 MCG Inhalation Once a day 1 capsule 24h Active Lisinopril 10 mg 1 tablet Once a day Orally Active Duloxetine HCl 30 MG Orally Twice a day 1 capsule 12h Nov, 30 day(s) Active Zyrtec Allergy 10 mg Orally Once a day 1 tablet 24h Active Venlafaxine HCl 100 mg Orally Twice a day 1.5 tablet with food 12h Active RESULTS No Results PROCEDURES No Known procedures INSTRUCTIONS MEDICATIONS ADMINISTERED No Known Medications MEDICAL (GENERAL) HISTORY Type Description Date Medical History hypertension Medical History allergies Medical History chronic obstructive pulmonary disease (COPD) Medical History anxiety Medical History sciatica Medical History acid reflux Medical History Pneumococcal inj (2012) Medical History depression Surgical History cholecystectomy 1979 Hospitalization History [facility] for pneumonia 2012 Hospitalization History [facility] x 3 days for stomach flu 07/24/15 Hospitalization History [facility] for vomiting-given mag citrate for "blockage" 03/09/2016
--- OUTSIDE RECORDS SUMMARY | 2018-04-15 01:30 | XMS REPORT ---
Author Author KATERINA SMITH [facility] [employer] Address Unknown Phone Unavailable Care Team Providers Care Medical Illustrator Name Role Phone KATERINA SMITH CP Unavailable Allergies, Adverse Reactions, Alerts Substance Reaction Event Type Penicillin V Potassium rash Drug Allergy Aspirin rash Drug Allergy Problems Problem Type Condition Code Onset Dates Condition Status Problem Sciatica 724.3 Active Problem Chronic airway obstruction, not elsewhere classified 496 Active Problem Lumbago 724.2 Active Problem Overactive bladder N32.81 Active Problem Lung nodule R91.1 Active Problem CAP (community acquired pneumonia) J18.9 Active Problem Chronic airway obstruction, not elsewhere classified J44.9 Active Problem Chronic rhinitis J31.0 Active Problem Essential hypertension I10 Active Problem Mood disorder F39 Active Assessment CAP (community acquired pneumonia) J18.9 Active Problem Female stress incontinence 625.6 Active Problem Nondependent tobacco use disorder 305.1 Active Medications Medication Code System Code Instructions Start Date End Date Status Dosage Protonix [facility] [address]-36 40 mg Orally Once a day Feb 05, 2016 1 tablet Venlafaxine HCl [facility] [address]-81 100 MG Orally Twice a day Dec 07, 2014 1 tablet with food PredniSONE [facility] [address]-40 10 MG Orally Once a day Feb 12, 2016 4 tablet with food or milk x 4 d then 3 tab x 4 d then 2 tab x 4 d then 1 tab x 4 d Spiriva HandiHaler [facility] [address]-78 18 MCG Inhalation Once a day 1 capsule Flonase ND 0 50 mcg/actuation Apr 27, 2013 1 sprays by Nasal route 2 times per day in each nostril Lisinopril [facility] [address]-94 10 mg Orally Once a day Feb 20, 2014 1 tablet Zyrtec Allergy [facility] [address]-38 10 mg Orally Once a day September 20, 2014 1 capsule as needed Zithromax [facility] [address]-93 250 MG Orally Once a day Feb 12, 2016 Feb 17, 2016 2 tablets on the first day, then 1 tablet daily for 4 days Benzonatate [facility] [address]-35 100 MG Orally Three times a day Feb 12, 2016 1 capsule as needed Promethazine-Codeine [facility] [address]-32 6.25-10 MG/5ML Orally 3 times a day Feb 12, 2016 5 ml as needed Symbicort [facility] [address]-73 80-4.5 MCG/ACT Inhalation Twice a day July 2 puffs Albuterol Sulfate HFA [facility] [address]-08 108 (90 Base) MCG/ACT Inhalation every 4 hrs Dec 18, 2014 2 puffs as needed Procedures Procedure Coding System Code Date Office Visit, Est Pt., Level 3 CPT-4 47430 Feb 14, 2016 MEASURE BLOOD OXYGEN LEVEL CPT-4 21822 Feb 14, 2016 Vital Signs Date/Time: Feb 14, 2016 Cardiac Monitoring Heart Rate 106 bpm Weight 284.4 lbs Height 67 in BMI 44.54 Index Oximetry 93 % Blood Pressure Diastolic 80 mmHg Blood Pressure Systolic 130 mmHg Results No Known Results Summary Purpose eClinicalWorks Submission
--- OUTSIDE RECORDS SUMMARY | 2018-04-15 01:30 | XMS REPORT ---
Author Author KATERINA SMITH Organization [employer] Address Unknown Phone Unavailable Care Team Providers Care Yeast Cake Cutter Name Role Phone KATERINA SMITH CP Unavailable [...] Date End Date Status Dosage Spiriva HandiHaler [facility] [id number] MCG Inhalation Once a day 1 capsule Results No Known Results Summary Purpose [employer] Submission
[2018-04-15 01:31] LABS: BASOPHILS % (AUTO) 0 % (0-10); EOSINOPHILS # (AUTO) 0.1 10^3/uL (0.0-0.3); EOSINOPHILS % (AUTO) 2 % (0-10); HEMATOCRIT 39 % (35-52); HEMOGLOBIN 13.2 G/DL (11.5-16.0); LYMPHOCYTES # (AUTO) 3.2 X 10^3 (1.0-4.0); LYMPHOCYTES % (AUTO) 43 % (12-44); MEAN CORPUSCULAR HEMOGLOBIN 28 PG (25-34); MEAN CORPUSCULAR HGB CONC 34 G/DL (32-36); MEAN CORPUSCULAR VOLUME 84 FL (80-99); MEAN PLATELET VOLUME 9.4 FL (7.4-10.4); MONOCYTES # (AUTO) 0.8 X 10^3 (0.0-1.0); MONOCYTES % (AUTO) 10 % (0-12); NEUTROPHILS # (AUTO) 3.4 X 10^3 (1.8-7.8); NEUTROPHILS % (AUTO) 45 % (42-75); PLATELET COUNT 186 10^3/uL (130-400); RED BLOOD COUNT 4.67 10^6/uL (4.35-5.85); RED CELL DISTRIBUTION WIDTH 12.2 % (10.0-14.5); WHITE BLOOD COUNT 7.6 10^3/uL (4.3-11.0)
--- OUTSIDE RECORDS SUMMARY | 2018-04-15 01:31 | XMS REPORT ---
Author Author PANAD CARTAGENA Organization [facility] Address [address] [place] [address] Care Team Providers Care Master Esthetician Name Role Phone OSIEL PANDA Unavailable PROBLEMS Type Condition ICD9-CM Code CMN30-SE Code Onset Dates Condition Status SNOMED Code Problem Overactive bladder N32.81 Active 108891540 Problem Acute exacerbation of chronic obstructive pulmonary disease (COPD) J44.1 Active 926860273 Problem CAP (community acquired pneumonia) J18.9 Active 943107010 Problem Hereditary and idiopathic neuropathy, 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 Active 66944872 Problem Sciatica of left side M54.32 Active 80945975 Problem Dysthymia F34.1 Active 13007529 Problem Moderate single current episode of major depressive disorder F32.1 Active 46969435 Problem Back pain with left-sided radiculopathy M54.10 Active 163356900 Problem Kidney stone N20.0 Active 01447092 Problem Female stress incontinence 625.6 Active 58699707 Problem Chronic airway obstruction, not elsewhere classified 496 Active 38847124 Problem Lumbago 724.2 Active 930279501 Problem Sciatica 724.3 Active 28081453 Problem Mood disorder F39 Active 47716621 Problem Essential hypertension I10 Active 70873735 Problem Nondependent tobacco use disorder 305.1 Active 655101837 Problem Chronic airway obstruction, not elsewhere classified J44.9 Active 61741261 Problem Chronic rhinitis J31.0 Active 77960312 Problem Lung nodule R91.1 Active 720508809 ALLERGIES No Information ENCOUNTERS Encounter Location Date Diagnosis [facility] [address] [facility][1] [id number][place] [id number] August, [facility] [address] [facility] [id number] [place] [id number] Jul, Urinary tract infection without hematuria, site unspecified N39.0 and Fatigue, unspecified type R53.83 [facility] [address] [id number] [address] Jul, Chronic airway obstruction, not elsewhere classified J44.9 [facility] [address]00565[address] [id number] Jul, BMI 45.0-49.9, adult Z68.42 and Infective urethritis N34.2 [facility] [address]00565[address] [id number] Jul, [facility] [id number] [place] [address] [id number] Jun, Back pain with left-sided radiculopathy M54.10 [facility] [address] [place] [address] [id number] May, Chronic airway obstruction, not elsewhere classified J44.9 and Encounter for immunization Z23 [facility] [address] [place] [id number] Apr, BMI 45.0-49.9, adult Z68.42 ; Back pain with left-sided radiculopathy M54.10 ; Chronic airway obstruction, not elsewhere classified J44.9 and Dysthymia F34.1 [facility] [address] [place] [address] [id number] Mar, Sciatica of left side M54.32 ; Back pain with left-sided radiculopathy M54.10 and Hereditary and idiopathic neuropathy, 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 [facility] [address]00565[address] [id number] Mar, Flank pain R10.9 ; Urinary urgency R39.15 and Chronic airway obstruction, not elsewhere classified J44.9 [facility] [address] [id number][place] [id number] Mar, Dysthymia F34.1 [facility] [address] [facility] [id number] [id number] Feb, [facility] [address] [facility] [id number] [address] Feb, [place] [address] [id number] [id number] Feb, Hematuria, unspecified type R31.9 ; Kidney stone N20.0 and BMI 40.0-44.9, adult Z68.41 [facility] [address] [id number] [address] Feb, [address] [id number] [id number] Feb, [facility] [id number], [place] [id number] Feb, [facility] [id number], [place] [id number] Feb, Dysthymia F34.1 ; Encounter for immunization Z23 ; Acute nasopharyngitis J00 ; Chronic rhinitis J31.0 and Chronic airway obstruction, not elsewhere classified J44.9 [facility] [address]00565100[place] [address] Jan, Well woman exam Z01.419 ; Left breast lump N63.20 and BMI 40.0-44.9, adult Z68.41 [facility] [id number], [place] [id number] Jan, Muscle cramps R25.2 [facility] [id number], [place] [id number] Dec, Dysthymia F34.1 [facility] [address]00565100[place], [place] [id number] Dec, Muscle cramps R25.2 [facility] [id number], [place] [id number] Nov, Dysthymia F34.1 [facility] [address] [place] [address] [id number] Oct, [facility] [address] [place] [address] [id number] Oct, Chronic airway obstruction, not elsewhere classified J44.9 ; Moderate single current episode of major depressive disorder F32.1 ; Chronic rhinitis J31.0 and Muscle cramps R25.2 [facility] [id number], [place] [id number] Sep, Acute nasopharyngitis J00 [facility] [address]00565100[place] [address] Jun, Acute exacerbation of chronic obstructive pulmonary disease (COPD) J44.1 [facility] [address] [place] [address] [id number] Jun, Acute nasopharyngitis J00 [facility] [address] [place] [address] [id number] Jun, [facility] [address] [place] [address] Apr, [facility] [address] [place] [address] [id number] Mar, Acute nasopharyngitis J00 [facility] [address] [place] [address] [id number] Mar, [facility] [address] [place] [address] [id number] Mar, [facility] [address] [place] [address] [id number] Feb, CAP (community acquired pneumonia) J18.9 and Chronic rhinitis J31.0 [facility] [id number] [place] [address] [id number] Feb, CAP (community acquired pneumonia) J18.9 [facility] [address] [place] [address] [id number] Feb, CAP (community acquired pneumonia) J18.9 [facility] [id number] [place] [address] [id number] Feb, [facility] [address] [place] [address] [id number] Jan, Mood disorder F39 [facility] [address]00565100[place], [place] [address]- [address] Jan, [facility] [address] [place] [address] [id number] Jan, Lung nodule R91.1 [facility] [id number] [place] [address] [id number] Jan, Lung nodule R91.1 [facility] [address] [place] [address] [id number] Jan, Lung nodule R91.1 [facility] [address] [place] [address] [id number] Jan, Lung nodule R91.1 [facility] [address] [place] [address] [id number] Jan, [facility] [address] [place] [address] [id number] Nov, Overactive bladder N32.81 ; Chronic airway obstruction, not elsewhere classified J44.9 and Essential hypertension I10 [id number] [place] [address] [id number] Oct, [address] [id number] Oct, Acute non-recurrent sinusitis, unspecified location J01.90 ; Cough R05 and Tobacco dependence F17.[address] [place] [address] [id number] Sep, Overactive bladder N32.81 and Chronic airway obstruction, not elsewhere classified J44.9 [id number] [place] [address] [id number] August, Chronic airway obstruction, not elsewhere classified J44.9 ; Mood disorder F39 and Urinary frequency R35.0 [id number] [place] [address] [id number] August, [place] [place] [address] [id number] Jul, Lung nodule R91.1 ; Chronic airway obstruction, not elsewhere classified J44.9 and Urinary tract infection without hematuria, site unspecified N39.0 [address] [place] [address] [id number] Jul, Lung nodule R91.[address] [id number] Jul, [facility] [address] [id number], [place] [id number] Jul, Diarrhea R19.7 and Lung nodule R91.1 [facility] [place] [address] [id number], [place] [id number] Apr, Upper respiratory tract infection, unspecified type J06.9 and COPD exacerbation J44.1 [facility] [address]00565100[place], [place] [id number] Mar, [facility] [address] [place] [address] [id number] Feb, Mood disorder F39 and Essential hypertension I10 [facility] [place] [address] [place] [address] [id number] Jan, Essential hypertension I10 ; Mood disorder F39 ; Chronic airway obstruction, not elsewhere classified J44.9 and Chronic rhinitis J31.0 [facility] [address]00565100[place], [place] [id number] Jan, [place] [address]00565100[place] [phone] Jan, [facility] [address] [id number], [place] [id number] Jan, [facility] [address] [id number], [place] [id number] Jan, [facility] [address]00565100[place], [place] [id number] Dec, Bronchitis [address] [id number] [id number] Dec, [facility] [id number] [place] [address] [id number] Sep, Rhinitis 472.0 [facility] [id number] [place] [address]- [address] 14 Jul, 2014 [facility] [address]00565100[place], [place] [address] Jul, [facility] [address] [place] [address] [id number] Jun, [facility] [place] [facility] [address] [facility] [id number] [place] [address] Jun, [facility] [place] [facility] [address] [facility] [id number], [place] [address] Jun, [facility] [address] [id number] [place] [id number] May, [facility] [place] [facility] [address] [facility] [id number], [place] [address] May, [facility] [address] [id number] [place] [id number] Apr, [facility] [place] [facility] [address] [facility] [id number], [place] [address] Apr, [facility] [address] [id number] [place] [id number] Mar, [facility] [place] [facility] [address] [facility] [id number], [place] [address]- [address] Mar, [facility] [address] [id number] [place] [id number] Mar, [facility] [place] [facility] [address] [facility] [id number], [place] [address] Mar, [facility] [address] [id number], [place] [id number] Mar, [facility] [place] [facility] [address] [facility] [id number], [place] [address] Mar, [facility] [address] [id number], [place] [id number] Mar, [facility] [place] [facility] [address] [facility] [id number], [place] [address]- [address] Mar, [facility] [address] [id number] [place] [id number] Feb, [facility] [place] [facility] [address] [facility] [id number], [place] [address] Feb, [facility] [address] [id number], [place] [id number] Feb, [facility] [place] [facility] [address] [facility] [id number], [place] [address]- [address] Feb, [facility] [address] [facility] [id number], [place] [id number] Feb, [facility] [place] [facility] [address] [facility] [id number], [place] [address]- [address] Feb, [facility] [address] [facility] [id number], [place] [id number] Jan, [facility] [place] [facility] [address] [facility] [id number], [place] [address]- 67[address] Jan, [facility] [address] [facility] [id number], [place] [id number] Jan, [facility] [place] [facility] [address]65100[place], [place] [address]- [address] Jan, [facility] [address] [facility] [id number], [place] [id number] Sep, [facility] [place] [facility] [address]00565100[place], [place] [address]- [address] Sep, [facility] [place] [facility] [address]00565100[place], [place] [address]- [address] Sep, [facility] [address] [facility] [id number], [place] [id number] Sep, [facility] [place] [facility] [address]65100[place], [place] [address]- [address] Sep, [facility] [place] [facility] [address] [facility] [id number], [place] [address]- 69[address] Sep, [facility] [address] [facility] [id number], [place] [id number] Jul, [facility] [place] [facility] [address] [facility] [id number], [place] [address]- [address] Jul, [facility] [address] [facility] [id number], [place] [id number] Jun, [facility] [place] [facility] [address] [facility] [id number], [place] [address]- 2546 Jun, [facility] [address] [id number], [place] [id number] Jun, [facility] [place] [facility] [address] [facility] [id number], [place] [address] 2546 Jun, [facility] [address] [id number], [place] [id number] Apr, [facility] [place] [facility] [address] [facility] [id number], [place] [address]- 36[address] Apr, [facility] [address] [id number], [place] [id number] Mar, [facility] [place] [facility] [address] [facility] [id number], [place] [address]- 4[address] Mar, [facility] [address] [facility] [id number], [place] [id number] Mar, [facility] [place] [facility] [address] [facility] [id number], [place] [address]- [address] Mar, [facility] [address] [id number], [place] [id number] Feb, [facility] [place] [facility] [address] [facility] [id number], [place] [address]- 6[address] Feb, [facility] [address] [facility] [id number], [place] [id number] Jan, [facility] [place] [facility] [address] [facility] [id number], [place] [address]- [address] Jan, [facility] [address] [id number], [place] [id number] 30 Dec, 2012 [facility] [place] [facility] [address] [facility] [id number], [place] [address]- 2546 16 Dec, 2012 [facility] [address] [id number], [place] [id number] Dec, [facility] [address] [id number], [place] [id number] Dec, [facility] [address] [id number] [place] [id number] Oct, [facility] [address] [id number] [place] [address]- 7[address] Oct, [facility] [place] [facility] [address] [facility] [id number] [place] [address]- 2546 Oct, [facility] [address] [id number] [place] [id number] Oct, [facility] [address] [id number] [place] [id number] Sep, [facility] [address] [id number] [place] [id number] August, [facility] [address] [id number] [place] [id number] August, [facility] [address] [id number] [place] [id number] August, [facility] [address] [id number] [place] [id number] Jul, [facility] [address] [facility] [id number] [place] [address]- 2546 Jul, [facility] [address] [id number] [place] [id number] Jul, [facility] [address] [id number] [place] [id number] Jun, [facility] [address] [facility] [id number], [place] [address]- 2546 Jun, [facility] [address] [id number] [place] [id number] Jun, [facility] [address] [id number] [place] [id number] Jun, [facility] [address] [id number] [place] [id number] Jun, [facility] [address] [id number] [place] [id number] Jun, [facility] [address] [id number] [place] [id number] Jun, [facility] [id number], [place] [id number] Feb, [facility] [id number] [place] [address]- 2546 Feb, [facility] [id number], [place] [id number] Jan, [facility] [id number] [place] [address] [id number] Nov, [facility] [id number] [place] [address] [id number] Oct, [facility] [id number] [place] [address] [id number] Oct, [facility] [address] [place] [address] [id number] Sep, [facility] [id number] [place] [address] 8[address] 2546 Mar, [facility] [id number] [place] [address] 2546 Nov, IMMUNIZATIONS No Known Immunizations SOCIAL HISTORY Never Assessed REASON FOR VISIT 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
--- OUTSIDE RECORDS SUMMARY | 2018-04-15 01:31 | XMS REPORT ---
Author Author JAH RAMIREZ [facility] Address [address] [place] [address] Care Team Providers Care Bus And Rail Operator Name Role Phone JAH RAMIREZ Unavailable PROBLEMS Type Condition ICD9-CM Code JLB28-YH Code Onset Dates Condition Status SNOMED Code Problem Chronic airway obstruction, not elsewhere classified J44.9 Active 36973747 Problem Chronic rhinitis J31.0 Active 31807140 Problem Mood disorder F39 Active 13960167 Problem Dysthymia F34.1 Active 50395859 Problem Moderate single current episode of major depressive disorder F32.1 Active 74160422 Problem Overactive bladder N32.81 Active 745322545 Problem Lung nodule R91.1 Active 953276735 Problem Acute exacerbation of chronic obstructive pulmonary disease (COPD) J44.1 Active 700598327 Problem CAP (community acquired pneumonia) J18.9 Active 647869444 Problem Female stress incontinence 625.6 Active 26104525 Problem Chronic airway obstruction, not elsewhere classified 496 Active 07036376 Problem Lumbago 724.2 Active 260773262 Problem Nondependent tobacco use disorder 305.1 Active 225262898 Problem Sciatica 724.3 Active 68986496 Problem Essential hypertension I10 Active 53821140 ALLERGIES Substance Reaction Event Type Date Status Penicillin V Potassium rash Drug Allergy Jun, Active Aspirin rash Drug Allergy Jun, Active SOCIAL HISTORY Never Assessed PLAN OF CARE Activity Details Follow Up prn Reason: VITAL SIGNS Height 67 in 2016-06-04 Weight 285.2 lbs 2016-06-04 Temperature 97.8 degrees Fahrenheit 2016-06-04 Heart Rate 110 bpm 2016-06-04 Respiratory Rate 24 2016-06-04 Oximetry 95 % 2016-06-04 BMI 44.66 kg/m2 2016-06-04 Blood pressure systolic 144 mmHg 2016-06-04 Blood pressure diastolic 82 mmHg 2016-06-04 MEDICATIONS Medication Instructions Dosage Frequency Start Date End Date Duration Status Symbicort 80-4.5 MCG/ACT Inhalation Twice a day 2 puffs 12h 18 Jul, 2015 Active PredniSONE 20 MG Orally Once a day 2 tablet 24h Jun, Jun, 5 days Active Promethazine-Codeine 6.25-10 MG/5ML Orally every 6 hrs 5 ml as needed 6h Jun, 7 Jun, 2016 5 days Active Venlafaxine HCl 100 MG Orally Twice a day 1 tablet with food 12h Dec, Active Lisinopril 10 mg 1 tablet Once a day Orally Active Zyrtec Allergy 10 mg Orally Once a day 1 capsule as needed 24h 18 Sep, 2014 Active Azithromycin 250 MG Orally Once a day 2 tablets on the first day, then 1 tablet daily for 4 days 24h Jun, Jun, 5 day(s) Active Spiriva HandiHaler 18 MCG Inhalation Once a day 1 capsule 24h Active Albuterol Sulfate HFA 108 (90 Base) MCG/ACT Inhalation every 4 hrs 2 puffs as needed 4h 15 Dec, 2014 Active Flonase 50 mcg/actuation Nasally Once a day 2 spray in each nostril 24h Apr, Active Protonix 40 mg Orally Once a day 1 tablet 24h Feb, 30 days Active Pantoprazole Sodium 40 MG TAKE ONE (1) TABLET BY MOUTH DAILY... Active RESULTS No Results PROCEDURES Procedure Date Ordered Result Body Site MEASURE BLOOD OXYGEN LEVEL June 04, 2016 IMMUNIZATIONS No Known Immunizations MEDICAL (GENERAL) HISTORY Type Description Date Medical History hypertension Medical History allergies Medical History chronic obstructive pulmonary disease (COPD) Medical History anxiety Medical History sciatica Medical History acid reflux Medical History Pneumococcal inj (2012) Medical History depression Surgical History cholecystectomy 1979 Hospitalization History [facility] for pneumonia 2012 Hospitalization History [facility] x 3 days for stomach flu 07/24[facility]2016
--- OUTSIDE RECORDS SUMMARY | 2018-04-15 01:31 | XMS REPORT ---
Author Author DYLAN FATIMA [facility] eClinicalWorks Address Unknown Phone Unavailable Care Team Providers Care Cryptologist Name Role Phone DYLAN FATIMA Unavailable Allergies, Adverse Reactions, Alerts Substance Reaction [...] obstruction, not elsewhere classified J44.9 Active Assessment Tobacco dependence F17.200 Active Assessment Cough R05 Active Assessment Acute non-recurrent sinusitis, unspecified location J01.90 Active Problem Female stress incontinence 625.6 Active Medications Medication Code System Code Instructions Start Date End Date Status Dosage Symbicort [facility] [address]-30 80-4.5 MCG/ACT Inhalation Twice a day July 2 puffs Albuterol Sulfate HFA [facility] [address]-58 108 (90 Base) MCG/ACT Inhalation every 4 hrs Dec 18, 2014 2 puffs as needed Zyrtec Allergy [facility] [address]-88 10 MG Orally Once a day September 20, 2014 1 capsule as needed Spiriva HandiHaler [facility] [address]-80 18 MCG Inhalation Once a day 1 capsule Lisinopril [facility] [address]-51 10 mg Orally Once a day Feb 20, 2014 1 tablet Doxycycline Hyclate [facility] [address]-31 100 MG Orally every 12 hrs October 18, 2015 October 28, 2015 1 capsule Venlafaxine HCl [facility] [address]-38 75 MG Orally Twice a day Dec 07, 2014 1 tablet with food Oxybutynin Chloride [facility] [address]-98 5 mg Orally Twice a day September 17, 2015 1 tablet Omeprazole NDC [address]-51 20 MG Orally Once a day 2 capsule Flonase [facility] [address]-60 50 mcg/actuation Apr 27, 2013 1 sprays by Nasal route 2 times per day in each nostril Procedures Procedure Coding System Code Date Office Visit, Est Pt., Level 3 CPT-4 69894 October 18, 2015 MEASURE BLOOD OXYGEN LEVEL CPT-4 08366 October 18, 2015 Vital Signs Date/Time: October 18, 2015 Cardiac Monitoring Heart Rate 134 bpm Weight 288.1 lbs Height 67 in Blood Pressure Diastolic 88 mmHg Blood Pressure Systolic 124 mmHg Results No Known Results Summary Purpose eClinicalWorks Submission
--- OUTSIDE RECORDS SUMMARY | 2018-04-15 01:31 | XMS REPORT ---
Author Author PANDA CARTAGENA Organization [facility] Address [address] [place] [address] Care Team Providers Care Analytical Lab Analyst Name Role Phone JONOADAMSNEHAL PANDA Unavailable PROBLEMS Type Condition ICD9-CM Code NUF01-JZ Code Onset Dates Condition Status SNOMED Code Problem Overactive bladder N32.81 Active 534230383 Problem Acute exacerbation of chronic obstructive pulmonary disease (COPD) J44.1 Active 752328605 Problem CAP (community acquired pneumonia) J18.9 Active 471795338 Problem Hereditary and idiopathic neuropathy, 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 Active 43675978 Problem Sciatica of left side M54.32 Active 53737883 Problem Dysthymia F34.1 Active 80390700 Problem Moderate single current episode of major depressive disorder F32.1 Active 64068030 Problem Back pain with left-sided radiculopathy M54.10 Active 309035582 Problem Kidney stone N20.0 Active 85830818 Problem Female stress incontinence 625.6 Active 25091501 Problem Chronic airway obstruction, not elsewhere classified 496 Active 06188859 Problem Lumbago 724.2 Active 197966109 Problem Sciatica 724.3 Active 17472393 Problem Mood disorder F39 Active 55496037 Problem Essential hypertension I10 Active 29751896 Problem Nondependent tobacco use disorder 305.1 Active 744295467 Problem Chronic airway obstruction, not elsewhere classified J44.9 Active 15525177 Problem Chronic rhinitis J31.0 Active 30423309 Problem Lung nodule R91.1 Active 269709566 ALLERGIES Substance Reaction Event Type Date Status Penicillin V Potassium rash Drug Allergy Jan, Active Aspirin rash Drug Allergy Jan, Active ENCOUNTERS Encounter Location Date Diagnosis [facility] [address] [facility] [id number] [phone] August, [facility] [address] [facility] [id number] [phone] Jul, Urinary tract infection without hematuria, site unspecified N39.0 and Fatigue, unspecified type R53.83 [address]005[address] [id number] Jul, Chronic airway obstruction, not elsewhere classified J44.9 [facility] [address]00565[address] [id number] Jul, BMI 45.0-49.9, adult Z68.42 and Infective urethritis N34.[address] [place] [address] [id number] Jul, [place] [id number] [place] [address] [id number] Jun, Back pain with left-sided radiculopathy M54.10 [address] [place] [address] [id number] May, Chronic airway obstruction, not elsewhere classified J44.9 and Encounter for immunization Z23 [address]005[address] [address] Apr, BMI 45.0-49.9, adult Z68.42 ; Back pain with left-sided radiculopathy M54.10 ; Chronic airway obstruction, not elsewhere classified J44.9 and Dysthymia F34.1 [address]00565[address] [id number] Mar, Sciatica of left side M54.32 ; Back pain with left-sided radiculopathy M54.10 and Hereditary and idiopathic neuropathy, 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 [address]00565[address] [id number] Mar, Flank pain R10.9 ; Urinary urgency R39.15 and Chronic airway obstruction, not elsewhere classified J44.9 [place] [id number] [id number] Mar, Dysthymia F34.1 [facility] [address] [facility] [address] [id number] [phone] Feb, [facility] [address]00565100[place] [address] Feb, [facility] [id number] [place] [address] [id number] Feb, Hematuria, unspecified type R31.9 ; Kidney stone N20.0 and BMI 40.0-44.9, adult Z68.41 [facility] [address] [place], [id number] [address] Feb, [facility] [address] [facility] [facility] [address] [id number] [phone] Feb, [facility] [id number] [place] [address] [id number] Feb, [facility] [address] [address] [id number] [place] [address] [id number] Feb, Dysthymia F34.1 ; Encounter for immunization Z23 ; Acute nasopharyngitis J00 ; Chronic rhinitis J31.0 and Chronic airway obstruction, not elsewhere classified J44.9 [facility] [id number] [place] [address] [id number]- [address] Jan, Well woman exam Z01.419 ; Left breast lump N63.20 and BMI 40.0-44.9, adult Z68.41 [facility] [id number] [place] [address] [id number] Jan, Muscle cramps R25.2 [facility] [address] [id number] [place] [address] [id number] Dec, Dysthymia F34.1 [facility] [id number] [place] [address] [id number] Dec, Muscle cramps R25.2 [facility] [id number] [place] [address] [id number] Nov, Dysthymia F34.1 [facility] [id number] [place] [address] [id number] Oct, [facility] [id number] [place] [address] [id number] Oct, Chronic airway obstruction, not elsewhere classified J44.9 ; Moderate single current episode of major depressive disorder F32.1 ; Chronic rhinitis J31.0 and Muscle cramps R25.2 [facility] [place] [id number] [place] [address] [id number] Sep, Acute nasopharyngitis J00 [facility] [id number] [place] [address] Jun, Acute exacerbation of chronic obstructive pulmonary disease (COPD) J44.1 [facility] [address] [id number] [place] [address] [id number] Jun, Acute nasopharyngitis J00 [facility] [address] [id number] Jun, [facility] [id number] [place] [address] [id number] 6465 Apr, [facility] [address] [id number] Mar, Acute nasopharyngitis J00 [facility] [address] [id number] Mar, [facility] [address] [id number] [place] [address] [id number] Mar, [facility] [address] [id number] Feb, CAP (community acquired pneumonia) J18.9 and Chronic rhinitis J31.0 [facility] [place] [address] [place] [id number] [place] [address] [id number] Feb, CAP (community acquired pneumonia) J18.9 [facility] [address] [address] [id number] [place] [address] [id number] Feb, CAP (community acquired pneumonia) J18.9 [facility] [address] [address] [id number] [place] [address] [id number] Feb, [facility] [address] [id number] Jan, Mood disorder F39 [facility] [id number] [place] [address] Jan, [place] [id number] [place] [address] [id number] Jan, Lung nodule R91.1 [place] [address] [place] [id number] [place] [address] [id number] Jan, Lung nodule R91.1 [facility] [address] [address] [id number] [place] [address] [id number] Jan, Lung nodule R91.[address] [id number] Jan, Lung nodule R91.1 [place] [address] [address] [place] [address] [id number] Jan, [address] [id number] Nov, Overactive bladder N32.81 ; Chronic airway obstruction, not elsewhere classified J44.9 and Essential hypertension I10 [address] [id number] Oct, [address] [id number] Oct, Acute non-recurrent sinusitis, unspecified location J01.90 ; Cough R05 and Tobacco dependence F17.200 [place] [address] [place] [address] [id number] Sep, Overactive bladder N32.81 and Chronic airway obstruction, not elsewhere classified J44.9 [place] [address] [place] [address] [id number] August, Chronic airway obstruction, not elsewhere classified J44.9 ; Mood disorder F39 and Urinary frequency R35.0 [place] [id number] [place] [address] [id number] August, [place] [address] [place] [address] [id number] Jul, Lung nodule R91.1 ; Chronic airway obstruction, not elsewhere classified J44.9 and Urinary tract infection without hematuria, site unspecified N39.0 [place] [address] [place] [address] [id number] Jul, Lung nodule R91.1 [facility] [place] [address] [place] [id number] [id number] Jul, [facility] [address] [place] [address] [id number] Jul, Diarrhea R19.7 and Lung nodule R91.1 [facility] [address] [id number] Apr, Upper respiratory tract infection, unspecified type J06.9 and COPD exacerbation J44.1 [facility] [address] [place] [address] [id number] Mar, [facility] [address] [place] [address] [id number] Feb, Mood disorder F39 and Essential hypertension I10 [place] [address] [place] [address] [id number] Jan, Essential hypertension I10 ; Mood disorder F39 ; Chronic airway obstruction, not elsewhere classified J44.9 and Chronic rhinitis J31.0 [facility] [address]00565[address] [id number] Jan, [facility] [address]00565100[place] [phone] Jan, [facility] [address] [id number], [place] [id number] Jan, [facility] [address] [id number], [place] [phone] Jan, [facility] [address]005[address] [id number] Dec, [facility] [address] [facility] [id number] [id number] Dec, [facility] [address] [place] [address] [id number] Sep, Rhinitis 472.0 [facility] [address]00565100[place], [place] [address] Jul, [facility] [id number] [place] [address]- [address] Jul, [facility] [address] [id number] [place] [id number] Jun, [facility] [place] [facility] [address] [facility] [id number] [place] [address]46 Jun, [facility] [place] [facility] [address] [facility] [id number][place] [address] Jun, [facility] [address] [facility] [id number] [place] [id number] May, [facility] [place] [facility] [address] [facility] [id number] [place] [address]- [address] May, [facility] [address] [facility] [id number] [place] [id number] Apr, [facility] [place] [facility] [address]00565100[place], [place] [address] Apr, [facility] [address] [facility] [id number], [place] [id number] Mar, [facility] [place] [facility] [address] [facility] [id number], [place] [address] Mar, [facility] [address] [facility] [id number], [place] [id number] Mar, [facility] [place] [facility] [address] [id number], [place] [address] 14[address] Mar, [facility] [address] [facility] [id number], [place] [id number] Mar, [facility] [place] [facility] [address] [facility] [id number], [place] [address]- [address] Mar, [facility] [address] [facility] [id number], [place] [id number] Mar, [facility] [place] [facility] [address] [facility] [id number], [place] [address]- 5[address] Mar, [facility] [address] [facility] [id number], [place] [id number] Feb, [facility] [place] [facility] [address] [facility] [id number], [place] [address] Feb, [facility] [address] [facility] [id number] [place] [id number] Feb, [facility] [place] [facility] [address] [facility] [id number], [place] [address]- [address] Feb, [facility] [address] [facility] [id number] [place] [id number] Feb, [facility] [place] [facility] [address] [facility] [id number], [place] [address]- [address] Feb, [facility] [address] [facility] [id number] [place] [id number] Jan, [facility] [place] [facility] [address] [facility] [id number], [place] [address]- 8[address] Jan, [facility] [address] [place] [id number], [place] [id number] Jan, [facility] [place] [facility] [address]00565[address] Jan, [facility] [address] [facility] [id number], [place] [id number] Sep, [facility] [place] [facility] [address]00565[address] [address]058[place]- [address] Sep, [facility] [place] [facility] [address]00565100[place], [place] [address]- 24[address] Sep, [facility] [address] [place] [address] [id number], [place] [id number] Sep, [facility] [place] [facility] [address] [facility] [id number], [place] [address]- 2487 Sep, [facility] [place] [facility] [address] [facility] [id number], [place] [address]- 9595 Sep, [facility] [address] [facility] [id number], [place] [id number] Jul, [facility] [place] [facility] [address] [facility] [id number], [place] [address]- [address] Jul, [facility] [address] [facility] [id number] [place] [id number] Jun, [facility] [address] [id number], [place] [address]- 4[address] Jun, [facility] [address] [id number] [place] [id number] Jun, [facility] [address] [facility] [id number], [place] [address]- [address] Jun, [facility] [address] [id number], [place] [id number] Apr, [facility] [address] [facility] [id number], [place] [address]- [address] Apr, [facility] [address] [id number], [place] [id number] Mar, [facility] [address]00565100[place], [place] [address]- [address] Mar, [facility] [address] [id number], [place] [id number] Mar, [facility] [address] [facility] [id number], [place] [address]- 95[address] Mar, [facility] [address] [id number], [place] [phone] Feb, [facility] [address] [facility] [id number], [place] [address]- [address] Feb, [facility] [address] [id number], [place] [id number] Jan, [facility] [place] [facility] [address] [facility] [id number], [place] [address]- 6137 Jan, [facility] [address] [id number], [place] [address]25431501 30 Dec, 2012 [facility] [place] [facility] [address] [facility] [id number], [place] [address]- [address]26 16 Dec, 2012 [facility] [address] [id number], [place] 748793934 Dec, [facility] [address] [id number] [place] [id number] Dec, [facility] [address] [id number] [place] [id number] Oct, [facility] [address] [facility] [id number] [place] [id number] 254 Oct, [facility] [address] [facility] [id number] [place] [address]- 2546 Oct, [facility] [address] [id number] [place] [id number] Oct, [facility] [address] [id number] [place] [id number] Sep, [facility] [address] [id number] [place] [id number] August, [facility] [address] [id number] [place] [id number] August, [facility] [address] [id number] [place] [id number] August, [facility] [address] [id number] [place] [id number] Jul, [facility] [address] [facility] [id number], [place] [address]- 2546 Jul, [facility] [address] [id number] [place] [id number] Jul, [facility] [address] [id number] [place] [id number] Jun, [facility] [place] [facility] [address] [facility] [id number], [place] [address]- 2546 Jun, [facility] [address] [id number] [place] [id number] Jun, [facility] [address] [id number] [place] [id number] Jun, [facility] [address] [id number] [place] [id number] Jun, [facility] [address] [id number] [place] [id number] Jun, [facility] [address] [id number], [place] [id number] Jun, [facility] [address] [facility] [id number], [place] [id number] Feb, [facility] [address]00565100[place], [place] [address]- [address] Feb, [facility] [address] [id number], [place] [id number] Jan, [facility] [address] [id number], [place] [id number] Nov, [facility] [id number] [place] [id number] Oct, [facility] [id number] [place] [id number] Oct, [facility] [id number], [place] [id number] Sep, [facility] [id number] [place] [address]- 2546 Mar, [facility] [address]00565100[place], [place] [address]- 25[address] Nov, IMMUNIZATIONS No Known Immunizations SOCIAL HISTORY Never Assessed REASON FOR VISIT Annual physical (female), Has not had a well woman exam in 10+ years. -ANA Panda, Last mammo 4+ years ago - normal PLAN OF CARE Activity Details Follow Up 1 Year Reason: VITAL SIGNS Height 67 in 2017-02-01 Weight 287 lbs 2017-02-01 Temperature 98.2 degrees Fahrenheit 2017-02-01 Heart Rate 86 bpm 2017-02-01 Respiratory Rate 20 2017-02-01 BMI 44.95 kg/m2 2017-02-01 Blood pressure systolic 122 mmHg 2017-02-01 Blood pressure diastolic 90 mmHg 2017-02-01 MEDICATIONS Medication Instructions Dosage Frequency Start Date [...] 2 puffs 12h 18 Jul, 2015 Active Pantoprazole Sodium 40 mg Orally Once a day 1 tablet 24h Active Lisinopril 10 mg 1 tablet Once a day Orally Active Duloxetine HCl 30 MG Orally Twice a day 1 capsule 12h Nov, 30 day(s) Active Spiriva HandiHaler 18 MCG Inhalation Once a day 1 capsule 24h Active Albuterol Sulfate HFA cfc free 90 mcg/inh Inhalation every 4 hrs 2 puffs as needed 4h 15 Dec, 2014 Active RESULTS No Results PROCEDURES Procedure Date Ordered Result Body Site SPECIMEN HANDLING Feb 01, 2017 INSTRUCTIONS MEDICATIONS ADMINISTERED No Known Medications MEDICAL (GENERAL) HISTORY Type Description Date Medical History hypertension Medical History allergies Medical History chronic obstructive pulmonary disease (COPD) Medical History anxiety Medical History sciatica Medical History acid reflux Medical History Pneumococcal inj (2012) Medical History depression Surgical History cholecystectomy 1979 [facility] Hospitalization History [facility] x 3 days for stomach flu 07/24/15 Hospitalization History [facility] for [facility]-given mag citrate for "blockage" 03/09/2016
--- OUTSIDE RECORDS SUMMARY | 2018-04-15 01:31 | XMS REPORT ---
Author Author KATERINA SMITH [facility] Address [address] [place] [address] Care Team Providers Care Journeyman Apprentice Electricians Name Role Phone KATERINA SMITH Unavailable PROBLEMS Type Condition ICD9-CM Code BFG47-SL Code Onset Dates Condition Status SNOMED Code Problem Overactive bladder N32.81 Active 409589542 Problem Acute exacerbation of chronic obstructive pulmonary disease (COPD) J44.1 Active 038109187 Problem CAP (community acquired pneumonia) J18.9 Active 662520185 Problem Hereditary and idiopathic neuropathy, 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 Active 31377638 Problem Sciatica of left side M54.32 Active 93774452 Problem Dysthymia F34.1 Active 42017974 Problem Moderate single current episode of major depressive disorder F32.1 Active 57176755 Problem Back pain with left-sided radiculopathy M54.10 Active 322166114 Problem Kidney stone N20.0 Active Problem Female stress incontinence 625.6 Active 37003457 Problem Chronic airway obstruction, not elsewhere classified 496 Active 37011372 Problem Lumbago 724.2 Active 599153985 Problem Sciatica 724.3 Active 41710156 Problem Mood disorder F39 Active 59342200 Problem Essential hypertension I10 Active 26044600 Problem Nondependent tobacco use disorder 305.1 Active 928024586 Problem Chronic airway obstruction, not elsewhere classified J44.9 Active 18586099 Problem Chronic rhinitis J31.0 Active 00285888 Problem Lung nodule R91.1 Active 403879101 ALLERGIES No Information ENCOUNTERS Encounter Location Date Diagnosis [id number] [id number] August, [address] [place] [address] [id number] Jul, Urinary tract infection without hematuria, site unspecified N39.0 and Fatigue, unspecified type R53.83 [address] [place] [address] [id number] Jul, Chronic airway obstruction, not elsewhere classified J44.9 [facility] [id number], [place] [id number] Jul, BMI 45.0-49.9, adult Z68.42 and Infective urethritis N34.2 [facility] [id number], [place] [phone] Jul, [facility] [id number] [place] [address] [id number] Jun, Back pain with left-sided radiculopathy M54.10 [facility] [id number] [place] [address] [id number] May, Chronic airway obstruction, not elsewhere classified J44.9 and Encounter for immunization Z23 [facility] [address] [id number] Apr, BMI 45.0-49.9, adult Z68.42 ; Back pain with left-sided radiculopathy M54.10 ; Chronic airway obstruction, not elsewhere classified J44.9 and Dysthymia F34.1 [facility] [id number], [place] [id number] Mar, Sciatica of left side M54.32 ; Back pain with left-sided radiculopathy M54.10 and Hereditary and idiopathic neuropathy, 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 [facility] [address] [id number] Mar, Flank pain R10.9 ; Urinary urgency R39.15 and Chronic airway obstruction, not elsewhere classified J44.9 [facility] [address] [facility] [id number], [place] [id number] Mar, Dysthymia F34.1 [facility] [address] [facility] [address] [id number][place] [id number] Feb, [facility] [address] [facility] [id number], [place] [address] Feb, [facility] [address] [id number] Feb, Hematuria, unspecified type R31.9 ; Kidney stone N20.0 and BMI 40.0-44.9, adult Z68.41 [facility] [address] [id number] [address] Feb, [facility] [address] [id number][place] [id number] Feb, [facility] [id number], [place] [id number] Feb, [facility] [id number], [place] [id number] Feb, Dysthymia F34.1 ; Encounter for immunization Z23 ; Acute nasopharyngitis J00 ; Chronic rhinitis J31.0 and Chronic airway obstruction, not elsewhere classified J44.9 [facility] [address] [address] Jan, Well woman exam Z01.419 ; Left breast lump N63.20 and BMI 40.0-44.9, adult Z68.41 [facility] [id number], [place] [id number] Jan, Muscle cramps R25.2 [facility] [id number], [place] [address] Dec, Dysthymia F34.1 [facility] [id number], [place] [address] Dec, Muscle cramps R25.2 [facility] [id number], [place] [id number] Nov, Dysthymia F34.1 [facility] [id number], [place] [id number] Oct, [facility] [id number], [place] [id number] Oct, Chronic airway obstruction, not elsewhere classified J44.9 ; Moderate single current episode of major depressive disorder F32.1 ; Chronic rhinitis J31.0 and Muscle cramps R25.2 [facility] [address] [id number] [id number] Sep, Acute nasopharyngitis J00 [facility] [address]005[address]100[place], [place] [address] Jun, Acute exacerbation of chronic obstructive pulmonary disease (COPD) J44.1 [facility] [id number], [place] [id number] Jun, Acute nasopharyngitis J00 [facility] [id number] [place] [address] [phone] Jun, [facility] [address]00565100[place], [place] [address] Apr, [facility] [id number] [place] [address] [id number] Mar, Acute nasopharyngitis J00 [facility] [id number] [place] [address] [phone] Mar, [facility] [id number] [place] [address] [id number] Mar, [facility] [id number] [place] [address] [phone] Feb, CAP (community acquired pneumonia) J18.9 and Chronic rhinitis J31.0 [facility] [id number] [place] [address] [id number] Feb, CAP (community acquired pneumonia) J18.9 [facility] [id number] [place] [address] [phone] Feb, CAP (community acquired pneumonia) J18.9 [facility] [id number], [place] [id number] Feb, [facility] [id number] [place] [address] [phone] Jan, Mood disorder F39 [facility] [address]00565100[place], [place] [address] Jan, [facility] [id number], [place] [id number] Jan, Lung nodule R91.1 [facility] [id number] [place] [address] [phone] Jan, Lung nodule R91.1 [place] [id number] [place] [address] [phone] Jan, Lung nodule R91.1 [facility] [id number] [place] [address] [id number] Jan, Lung nodule R91.1 [id number] [place] [address] [id number] Jan, [address] [id number] Nov, Overactive bladder N32.81 ; Chronic airway obstruction, not elsewhere classified J44.9 and Essential hypertension I10 [id number] [place] [address] [id number] Oct, [id number] [place] [address] [phone] Oct, Acute non-recurrent sinusitis, unspecified location J01.90 ; Cough R05 and Tobacco dependence F17.200 [address] [place] [address] [phone] Sep, Overactive bladder N32.81 and Chronic airway obstruction, not elsewhere classified J44.9 [address] [place] [address] [phone] August, Chronic airway obstruction, not elsewhere classified J44.9 ; Mood disorder F39 and Urinary frequency R35.0 [id number] [place] [address] [phone] August, [id number] [place] [address] [id number] Jul, Lung nodule R91.1 ; Chronic airway obstruction, not elsewhere classified J44.9 and Urinary tract infection without hematuria, site unspecified N39.0 [id number] [place] [address] [phone] Jul, Lung nodule R91.1 [address] [place] [id number] Jul, [address] [place] [id number] Jul, Diarrhea R19.7 and Lung nodule R91.1 [place] [id number] [place] [address] [id number] Apr, Upper respiratory tract infection, unspecified type J06.9 and COPD exacerbation J44.1 [facility] [place] [address] [place] [address] [phone] Mar, [address] [id number] Feb, Mood disorder F39 and Essential hypertension I10 [id number] [place] [address] [phone] Jan, Essential hypertension I10 ; Mood disorder F39 ; Chronic airway obstruction, not elsewhere classified J44.9 and Chronic rhinitis J31.0 [address] [place] [address] [phone] Jan, [address]00565100[place] [phone] Jan, [facility] [address] [id number], [place] [phone] Jan, [facility] [address] [place] [address] [phone] Jan, [facility] [address] [place] [address] [phone] Dec, Bronchitis [address] [place] [address] [phone] Dec, [facility] [place] [address] [place] [address] [phone] Sep, Rhinitis 472.0 [facility] [id number] [place] [address] [phone] Jul, [facility] [id number] [place] [address] [phone] Jul, [address] [place] [address] [phone] Jun, [facility] [address] [id number], [place] [address] Jun, [facility] [place] [facility] [address] [facility] [id number], [place] [address] Jun, [facility] [place] [address] [facility] [id number] [place] [id number] May, [facility] [place] [facility] [address] [facility] [id number], [place] [address] May, [facility] [place] [address] [facility] [id number], [place] [id number] Apr, [facility] [place] [facility] [address] [facility] [id number], [place] [address] Apr, [facility] [place] [address] [facility] [id number], [place] [id number] Mar, [facility] [address] [facility] [id number], [place] [address] Mar, [facility] [place] [address] [facility] [id number], [place] [id number] Mar, [facility] [address] [facility] [id number], [place] [address] Mar, [facility] [place] [address] [facility] [id number], [place] [phone] Mar, [facility] [place] [facility] [address] [facility] [id number], [place] [address] Mar, [facility] [place] [address] [facility] [id number], [place] [id number] Mar, [facility] [place] [facility] [address] [facility] [id number], [place] [address] Mar, [facility] [place] [address] [facility] [id number], [place] [id number] Feb, [facility] [place] [facility] [address] [facility] [id number], [place] [address] Feb, [facility] [place] [address] [facility] [id number], [place] [id number] Feb, [facility] [place] [facility] [address] [facility] [id number], [place] [address] Feb, [facility] [place] [address] [facility] [id number] [place] [phone] Feb, [facility] [place] [facility] [address] [facility] [id number], [place] [address] Feb, [facility] [place] [address] [facility] [id number], [place] [id number] Jan, [facility] [place] [facility] [address] [facility] [id number], [place] [address]- 77[address] Jan, [facility] [place] [address] [facility] [id number], [place] [id number] Jan, [facility] [place] [facility] [address] [facility] [id number], [place] [address]- [address] Jan, [facility] [place] [address] [id number], [place] [id number] Sep, [facility] [place] [facility] [address] [facility] [id number], [place] [address]- [address] Sep, [facility] [place] [facility] [address]00565100[place], [place] [address] Sep, [facility] [place] [address] [facility] [id number], [place] [id number] Sep, [facility] [place] [facility] [address]00565100[place], [place] [address]- [address] Sep, [facility] [place] [facility] [address] [facility] [id number], [place] [address]- [address] Sep, [facility] [place] [address] [facility] [id number], [place] [id number] Jul, [facility] [place] [facility] [address] [facility] [id number], [place] [address]- 16[address] Jul, [facility] [place] [address] [facility] [id number], [place] [id number] Jun, [facility] [place] [facility] [address] [facility] [id number] [place] [address] 2546 Jun, [facility] [place] [address] [id number] [place] [phone] Jun, [facility] [address] [facility] [id number], [place] [address]- [address] Jun, [facility] [place] [address] [id number] [place] [id number] Apr, [facility] [place] [facility] [address] [facility] [id number], [place] [address]- [address] Apr, [facility] [place] [address] [id number] [place] [phone] Mar, [facility] [address] [facility] [id number], [place] [address]- [address] Mar, [facility] [place] [address] [id number] [place] [id number] Mar, [facility] [address]00565100[place], [place] [address]- [address] Mar, [facility] [place] [address] [id number], [place] [id number] Feb, [facility] [address]00565100[place], [place] [address]- [address] Feb, [facility] [place] [address] [id number], [place] 032352490 Jan, [facility] [place] [address] [facility] [id number], [place] [address]- [address] Jan, [facility] [place] [address] [id number], [place] [phone] Dec, [facility] [address] [facility] [id number], [place] [address]- [address] 16 Dec, 2012 [facility] [address] [id number] [place] [id number] Dec, [facility] [address] [id number] [place] [phone] Dec, [facility] [place] [address] [id number] [place] [id number] Oct, [facility] [place] [address] [facility] [id number] [place] [address]- [address] Oct, [facility] [address] [facility] [id number] [place] [address]- 2540 Oct, [facility] [place] [address] [id number] [place] [id number] Oct, [facility] [place] [address] [id number] [place] 838537026 Sep, [facility] [address] [id number] [place] [phone] August, [facility] [address] [id number] [place] [id number] August, [facility] [address] [id number] [place] [id number] August, [facility] [address] [id number] [place] 005161419 Jul, [facility] [place] [facility] [address] [facility] [id number], [place] [address]- [address] Jul, [facility] [place] [address] [id number] [place] [id number] Jul, [facility] [address] [id number] [place] [id number] Jun, [facility] [address] [facility] [id number], [place] [address]- [address]47 Jun, [facility] [address] [id number] [place] [id number] Jun, [facility] [address] [id number] [place] [id number] Jun, [facility] [address] [id number] [place] [id number] Jun, [facility] [address] [id number] [place] [id number] Jun, [facility] [address] [id number] [place] [id number] Jun, [facility] [place] [address] [id number], [place] 752997521 Feb, [facility] [address]100[place], [place] [address]- [address] Feb, [facility] [address] [id number], [place] [id number] Jan, [facility] [address] [id number], [place] [id number] Nov, [facility] [id number], [place] [id number] Oct, [facility] [address]00565100[place], [place] [phone] Oct, [place] [id number] [id number] Sep, [facility] [address]00565100[place], [place] [address]- [address] Mar, [facility] [address]00565100[place], [place] [address]- [address] Nov, IMMUNIZATIONS No Known Immunizations SOCIAL [...] Surgical History cholecystectomy 1979 [facility] Hospitalization History [facility] x 3 days for stomach flu 07/24/15 Hospitalization History [facility]-given mag citrate for "blockage" 03/09/2016
--- OUTSIDE RECORDS SUMMARY | 2018-04-15 01:32 | XMS REPORT ---
Author Author KATERINA SMITH Organization [employer] Address Unknown Phone Unavailable Care Team Providers Care Grinder Hardboard Name Role Phone KATERINA SMITH CP Unavailable [...] vaccination and inoculation, Influenza V04.81 Active Medications No Known Medications Results No Known Results Summary Purpose [employer] Submission
--- OUTSIDE RECORDS SUMMARY | 2018-04-15 01:32 | XMS REPORT ---
Author Author KATERINA SMITH [facility] [employer] Address Unknown Phone Unavailable Care Team Providers Care Pilot Boat Operator Name Role Phone KATERINA SMITH CP Unavailable Allergies, Adverse Reactions, Alerts Substance Reaction Event Type Penicillin V Potassium rash Drug Allergy Aspirin rash Drug Allergy Problems Problem Type Condition Code Onset Dates Condition Status Problem Nondependent tobacco use disorder 305.1 Active Problem Lumbago 724.2 Active Problem Sciatica 724.3 Active Assessment CAP (community acquired pneumonia) J18.9 [...] Start Date End Date Status Dosage Protonix [facility] [address]-02 40 mg Orally Once a day Feb 05, 2016 1 tablet Zyrtec Allergy [facility] [address]-61 10 mg Orally Once a day September 20, 2014 1 capsule as needed Flonase NDC 0 50 mcg/actuation Apr 27, 2013 1 sprays by Nasal route 2 times per day in each nostril Benzonatate [facility] [address]-55 100 MG Orally Three times a day Feb 12, 2016 1 capsule as needed Albuterol Sulfate HFA [facility] [address]-21 108 (90 Base) MCG/ACT Inhalation every 4 hrs Dec 18, 2014 2 puffs as needed Lisinopril [facility] [address]-00 10 mg Orally Once a day Feb 20, 2014 1 tablet Venlafaxine HCl [facility] [address]-05 100 MG Orally Twice a day Dec 07, 2014 1 tablet with food Promethazine-Codeine [facility] [address]-70 6.25-10 MG/5ML Orally 3 times a day Feb 12, 2016 5 ml as needed Spiriva HandiHaler [facility] [address]-53 18 MCG Inhalation Once a day 1 capsule Zithromax [facility] [address]-70 250 MG Orally Once a day Feb 12, 2016 Feb 17, 2016 2 tablets on the first day, then 1 tablet daily for 4 days Symbicort [facility] [address]-52 80-4.5 MCG/ACT Inhalation Twice a day July 2 puffs PredniSONE [facility] [address]-42 10 MG Orally Once a day Feb 12, 2016 4 tablet with food or milk x 4 d then 3 tab x 4 d then 2 tab x 4 d then 1 tab x 4 d Procedures Procedure Coding System Code Date Office Visit, Est Pt., Level 3 CPT-4 33258 Feb 12, 2016 ROCEPHIN 1 GM (IM) CPT-4 J0696 Feb 12, 2016 MEASURE BLOOD OXYGEN LEVEL CPT-4 94083 Feb 12, 2016 THER/PROPH/DIAG INJ, SC/IM CPT-4 51374 Feb 12, 2016 Vital Signs Date/Time: Feb 12, 2016 Cardiac Monitoring Heart Rate 118 bpm Weight 288 lbs Height 67 in BMI 45.10 Index Oximetry 89 % Blood Pressure Diastolic 82 mmHg Blood Pressure Systolic 124 mmHg Results Name Result Date Reference Range Unit Abnormality Flag Xray : Chest (PA lateral) Summary Purpose [employer] Submission
--- OUTSIDE RECORDS SUMMARY | 2018-04-15 01:32 | XMS REPORT ---
Author Author KATERINA SMITH [facility] [employer] Address Unknown Phone Unavailable Care Team Providers Care Apple Press Operator Name Role Phone KATERINA SMITH CP Unavailable Allergies, Adverse Reactions, Alerts Substance Reaction Event Type Penicillin V Potassium rash Drug Allergy Aspirin rash Drug Allergy Problems Problem Type Condition Code Onset Dates Condition Status Problem Female stress incontinence 625.6 Active Problem Sciatica 724.3 Active Problem Nondependent tobacco use disorder 305.1 Active Problem Essential hypertension I10 Active Problem Mood disorder F39 Active Problem Lung nodule R91.1 Active Problem Chronic airway obstruction, not elsewhere classified 496 Active Problem Lumbago 724.2 Active Problem Chronic airway obstruction, not elsewhere classified J44.9 Active Problem Chronic rhinitis J31.0 Active Assessment Urinary tract infection without hematuria, site unspecified N39.0 Active Assessment Chronic airway obstruction, not elsewhere classified J44.9 Active Assessment Lung nodule R91.1 Active Medications Medication Code System Code Instructions Start Date End Date Status Dosage Venlafaxine HCl [facility] [address]-52 75 MG Orally Twice a day Dec 07, 2014 1 tablet with food Albuterol Sulfate HFA [facility] [address]-95 108 (90 Base) MCG/ACT Inhalation every 4 hrs Dec 18, 2014 2 puffs as needed Zyrtec Allergy [facility] [address]-41 10 MG Orally Once a day September 20, 2014 1 capsule as needed Symbicort [facility] [address]-84 80-4.5 MCG/ACT Inhalation Twice a day July 2 puffs Spiriva HandiHaler [facility] [address]-40 18 MCG Inhalation Once a day 1 capsule Lisinopril [facility] [address]-76 10 mg Orally Once a day Feb 20, 2014 1 tablet Omeprazole [facility] [address]-47 20 MG Orally Once a day 2 capsule Flonase ND 0 50 mcg/actuation Apr 27, 2013 1 sprays by Nasal route 2 times per day in each nostril Macrodantin [facility] [address]-26 100 MG Orally twice a day July 22, 2015 August 01, 2015 1 capsule Procedures Procedure Coding System Code Date URINALYSIS, AUTO, W/O SCOPE CPT-4 14199 July 22, 2015 Office Visit, Ashlee Pt., Level 3 CPT-4 51897 July 22, 2015 Vital Signs Date/Time: July 22, 2015 Temperature 98.6 F Weight 283 lbs Height 67 in BMI 44.32 Index Blood Pressure Diastolic 80 mmHg Blood Pressure Systolic 140 mmHg Cardiac Monitoring Heart Rate 118 bpm Results Name Result Date Reference Range Unit Abnormality Flag UA LONG DIP (IN HOUSE) ----ALMAS 1+ 20150722 ----NIT neg 20150722 ----SG 1.010 20150722 ----KET neg 20150722 ----JU neg 20150722 ----GLU neg 20150722 ----Odor no 20150722 ----pH 6.0 20150722 ----BLO neg 20150722 ----URO 0.2 20150722 ----Protein 1+ 20150722 ----Lot # [id number] ----Exp date 20150722 ----Clarity cloudy 20150722 ----Color yellow 20150722 Summary Purpose eClinicalWorks Submission
--- OUTSIDE RECORDS SUMMARY | 2018-04-15 01:32 | XMS REPORT ---
Author Author KATERINA SMITH [facility] Address [address] [place] [address] Care Team Providers Care Program Proposals Coordinator Name Role Phone KATERINA SMITH Unavailable PROBLEMS Type Condition ICD9-CM Code [id number] Code Onset Dates Condition Status SNOMED Code Problem Chronic airway obstruction, not elsewhere classified J44.9 Active 47776835 Problem Chronic rhinitis J31.0 Active 55238442 Problem Mood disorder F39 Active 23466112 Problem Dysthymia F34.1 Active 54305616 Problem Moderate single current episode of major depressive disorder F32.1 Active 38392587 Problem Overactive bladder N32.81 Active 211683861 Problem Lung nodule R91.1 Active 129764554 Problem Acute exacerbation of chronic obstructive pulmonary disease (COPD) J44.1 Active 582163906 Problem CAP (community acquired pneumonia) J18.9 Active 664619790 Problem Female stress incontinence 625.6 Active 95553065 Problem Chronic airway obstruction, not elsewhere classified 496 Active 23958040 Problem Lumbago 724.2 Active 421063550 Problem Nondependent tobacco use disorder 305.1 Active 005043567 Problem Sciatica 724.3 Active 00332070 Problem Essential hypertension I10 Active 94452230 ALLERGIES Unknown Allergies SOCIAL HISTORY No smoking Hx information available PLAN OF CARE VITAL SIGNS MEDICATIONS Medication Instructions Dosage Frequency Start Date End Date Duration Status Protonix 40 mg Orally Once a day 1 tablet 24h Feb, 30 days Active RESULTS No Results PROCEDURES No Known procedures IMMUNIZATIONS No Known Immunizations
--- OUTSIDE RECORDS SUMMARY | 2018-04-15 01:33 | XMS REPORT ---
Author Author KATERINA SMITH [facility] [employer] Address Unknown Phone Unavailable Care Team Providers Care Activity Director Name Role Phone KATERINA SMITH CP Unavailable Allergies, Adverse Reactions, Alerts Substance Reaction Event Type Penicillin V Potassium rash Drug Allergy Aspirin rash Drug Allergy Problems Problem Type Condition Code Onset Dates Condition Status Assessment Essential hypertension I10 Active Problem Nondependent tobacco use disorder 305.1 Active Problem Female stress incontinence 625.6 Active Problem Mood disorder F39 Active Problem Chronic airway obstruction, not elsewhere classified J44.9 Active Problem Essential hypertension I10 Active Problem Lumbago 724.2 Active Problem Sciatica 724.3 Active Problem Chronic rhinitis J31.0 Active Problem Chronic airway obstruction, not elsewhere classified 496 Active Assessment Chronic rhinitis J31.0 Active Assessment Chronic airway obstruction, not elsewhere classified J44.9 Active Assessment Mood disorder F39 Active Medications Medication Code System Code Instructions Start Date End Date Status Dosage Omeprazole [facility] [address]-73 20 MG Orally Once a day 2 capsule Flonase [facility] [address]-66 50 mcg/actuation Apr 27, 2013 1 sprays by Nasal route 2 times per day in each nostril Lisinopril [facility] [address]-94 10 MG Orally Once a day Feb 20, 2014 1 tablet Albuterol Sulfate HFA [facility] [address]-67 108 (90 Base) MCG/ACT Inhalation every 4 hrs Dec 18, 2014 2 puffs as needed Venlafaxine HCl [facility] [address]-09 50 MG Orally Twice a day Dec 07, 2014 1 tablet with food Chlorthalidone [facility] [address]-11 25 MG May 28, 2014 1 tablet by Oral route 1 time per day Zyrtec Allergy [facility] [address]-24 10 MG Orally Once a day September 20, 2014 1 capsule as needed Spiriva HandiHaler [facility] [address]-91 18 MCG Inhalation Once a day 1 capsule Procedures Procedure Coding System Code Date Office Visit, Est Pt., Level 3 CPT-4 75087 Jan 14, 2015 Vital Signs Date/Time: Jan 14, 2015 Temperature 96.8 F Weight 268 lbs Height 67 in BMI 41.97 Index Blood Pressure Diastolic 78 mmHg Blood Pressure Systolic 128 mmHg Cardiac Monitoring Heart Rate 84 bpm Results No Known Results Summary Purpose [employer] Submission
--- OUTSIDE RECORDS SUMMARY | 2018-04-15 01:33 | XMS REPORT ---
Author Author KATERINA SMITH Organization [employer] Address Unknown Phone Unavailable Care Team Providers Care Orderly Name Role Phone KATERINA SMITH CP Unavailable [...] Date End Date Status Dosage Spiriva HandiHaler [facility] [address]-17 18 MCG Inhalation Once a day 1 capsule Results No Known Results Summary Purpose [employer] Submission
--- OUTSIDE RECORDS SUMMARY | 2018-04-15 01:33 | XMS REPORT ---
Author Author KATERINA SMITH [facility] Address [address] [place] [address] Care Team Providers Care Registered Nurse Maternal Child Name Role Phone KATERINA SMITH Unavailable PROBLEMS Type Condition ICD9-CM Code UHK59-VX Code Onset Dates Condition Status SNOMED Code Problem Overactive bladder N32.81 Active 087361629 Problem Acute exacerbation of chronic obstructive pulmonary disease (COPD) J44.1 Active 880275030 Problem CAP (community acquired pneumonia) J18.9 Active 615897112 Problem Hereditary and idiopathic neuropathy, 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 Active 51700297 Problem Back pain with left-sided radiculopathy M54.10 Active 932689998 Problem Dysthymia F34.1 Active 18412024 Problem Moderate single current episode of major depressive disorder F32.1 Active 94460998 Problem Sciatica of left side M54.32 Active 60365176 Problem Kidney stone N20.0 Active 35184434 Problem Female stress incontinence 625.6 Active 12827158 Problem Essential hypertension I10 Active 17276523 Problem Chronic airway obstruction, not elsewhere classified J44.9 Active 37595994 Problem Nondependent tobacco use disorder 305.1 Active 798520602 Problem Mood disorder F39 Active 26141860 Problem Chronic rhinitis J31.0 Active 66273790 Problem Lung nodule R91.1 Active 030668404 ALLERGIES Substance Reaction Event Type Date Status Penicillin V Potassium rash Drug Allergy Mar, Active Aspirin rash Drug Allergy Mar, Active ENCOUNTERS Encounter Location Date Diagnosis [facility] [address] [id number] [place] [id number] Sep, [facility] [id number][place] [id number] Sep, [facility] [address] [id number], [place] [id number] Sep, [facility] [address] [id number] [place] [id number] Sep, Dysthymia F34.1 [address]00565100[place], [place] [id number] Sep, Mood disorder F39 [facility] [address] [id number] [place] [id number] August, Dysthymia F34.1 [address] [place] [address] [id number] August, Dysthymia F34.1 ; Chronic airway obstruction, not elsewhere classified J44.9 ; Back pain with left-sided radiculopathy M54.10 and BMI 45.0-49.9, adult Z68.42 [place] [id number] [place] [address] [id number] Jul, Urinary tract infection without hematuria, site unspecified N39.0 and Fatigue, unspecified type R53.83 [place] [id number] [place] [address] [id number] Jul, Chronic airway obstruction, not elsewhere classified J44.9 [address] [place] [address] [id number] Jul, BMI 45.0-49.9, adult Z68.42 and Infective urethritis N34.[address] [place] [address] [id number] Jul, [place] [id number] [place] [address] [id number] Jun, Back pain with left-sided radiculopathy M54.[address] [place] [address] [id number] May, Chronic airway obstruction, not elsewhere classified J44.9 and Encounter for immunization Z23 [place] [id number] [place] [address] [id number] Apr, BMI 45.0-49.9, adult Z68.42 ; Back pain with left-sided radiculopathy M54.10 ; Chronic airway obstruction, not elsewhere classified J44.9 and Dysthymia F34.[address] [id number][place] [id number] Mar, Sciatica of left side M54.32 ; Back pain with left-sided radiculopathy M54.10 and Hereditary and idiopathic neuropathy, 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 [facility] [id number] [place] [address] [id number] Mar, Flank pain R10.9 ; Urinary urgency R39.15 and Chronic airway obstruction, not elsewhere classified J44.9 [facility] [id number] [place] [address] [id number] Mar, Dysthymia F34.1 [facility] [address] [facility] [id number] [place] [address] [id number] Feb, [facility] [place] [id number] [place] [address] Feb, [facility] [id number] [place] [address] [id number] Feb, Hematuria, unspecified type R31.9 ; Kidney stone N20.0 and BMI 40.0-44.9, adult Z68.41 [facility] [address] [place] [id number] [place] [address] Feb, [facility] [address] [facility] [id number] [place] [address] [id number] Feb, [facility] [id number] [place] [address] [id number] Feb, [facility] [id number] [place] [address] [id number] Feb, Dysthymia F34.1 ; Encounter for immunization Z23 ; Acute nasopharyngitis J00 ; Chronic rhinitis J31.0 and Chronic airway obstruction, not elsewhere classified J44.9 [facility] [place] [id number] [place] [address] Jan, Well woman exam Z01.419 ; Left breast lump N63.20 and BMI 40.0-44.9, adult Z68.41 [facility] [address] [id number] Jan, Muscle cramps R25.2 [facility] [address] [id number], [place] [id number] Dec, Dysthymia F34.1 [facility] [id number] [place] [address] [id number] Dec, Muscle cramps R25.2 [facility] [id number] [place] [address] [id number] Nov, Dysthymia F34.1 [facility] [id number] [place] [address] [id number] Oct, [facility] [id number] [place] [address] [id number] Oct, Chronic airway obstruction, not elsewhere classified J44.9 ; Moderate single current episode of major depressive disorder F32.1 ; Chronic rhinitis J31.0 and Muscle cramps R25.2 [facility] [id number] [place] [address] [id number] Sep, Acute nasopharyngitis J00 [facility] [address]00565100[place], [place] [address] Jun, Acute exacerbation of chronic obstructive pulmonary disease (COPD) J44.1 [facility] [id number] [place] [address] [id number] Jun, Acute nasopharyngitis J00 [facility] [id number], [place] [id number] Jun, [facility] [address]00565100[place], [place] [address] Apr, [facility] [id number], [place] [id number] Mar, Acute nasopharyngitis J00 [facility] [id number], [place] [id number] Mar, [facility] [id number] [place] [address] [id number] Mar, [facility] [id number] [place] [address] [id number] Feb, CAP (community acquired pneumonia) J18.9 and Chronic rhinitis J31.0 [facility] [id number] [place] [address] [id number] Feb, CAP (community acquired pneumonia) J18.9 [facility] [id number] [place] [address] [id number] Feb, CAP (community acquired pneumonia) J18.9 [facility] [id number] [place] [address] [id number] Feb, [facility] [id number] [place] [address] [id number] Jan, Mood disorder F39 [facility] [place] [address] [address] Jan, [facility] [id number] [place] [address] [id number] Jan, Lung nodule R91.1 [facility] [id number] [place] [address] [id number] Jan, Lung nodule R91.1 [place] [id number] [place] [address] [id number] Jan, Lung nodule R91.1 [place] [id number] [place] [address] [id number] Jan, Lung nodule R91.1 [place] [id number] [place] [address] [id number] Jan, [place] [id number] [place] [address] [id number] Nov, Overactive bladder N32.81 ; Chronic airway obstruction, not elsewhere classified J44.9 and Essential hypertension I10 [place] [id number] [place] [address] [id number] Oct, [place] [id number] [place] [address] [id number] Oct, Acute non-recurrent sinusitis, unspecified location J01.90 ; Cough R05 and Tobacco dependence F17.200 [place] [id number] [place] [address] [id number] Sep, Overactive bladder N32.81 and Chronic airway obstruction, not elsewhere classified J44.9 [address] [place] [address] [id number] August, Chronic airway obstruction, not elsewhere classified J44.9 ; Mood disorder F39 and Urinary frequency R35.0 [address] [place] [address] [id number] August, [address] [id number] Jul, Lung nodule R91.1 ; Chronic airway obstruction, not elsewhere classified J44.9 and Urinary tract infection without hematuria, site unspecified N39.0 [place] [id number] [place] [address] [id number] Jul, Lung nodule R91.1 [address] [place] [address] [id number] Jul, [place] [id number] [place] [address] [id number] Jul, Diarrhea R19.7 and Lung nodule R91.1 [place] [id number] [place] [address] [id number] Apr, Upper respiratory tract infection, unspecified type J06.9 and COPD exacerbation J44.1 [address]00565100[place] [id number] Mar, [address] [place] [address] [id number] Feb, Mood disorder F39 and Essential hypertension I10 [address] [place] [address] [id number] Jan, Essential hypertension I10 ; Mood disorder F39 ; Chronic airway obstruction, not elsewhere classified J44.9 and Chronic rhinitis J31.0 [address]00565100[place] [id number] Jan, [facility] [address] [place] [address] [id number], [place] [id number] Jan, [facility] [address]00565100[place] [id number] Jan, [facility] [address] [id number], [place] [id number] Jan, [facility] [address] [id number], [place] [id number] Dec, [place] [address] [facility] [address] [id number], [place] [id number] Dec, [facility] [id number], [place] [id number] Sep, Rhinitis 472.0 [facility] [place] [facility] [address]00565100[place], [place] [address] Jul, [facility] [place] [facility] [address] [place] [address]- 2016 Jul, [facility] [id number], [place] [id number] Jun, [facility] [place] [facility] [address]00565100[place], [place] [address] Jun, [facility] [place] [facility] [address]00565100[place], [place] [address] Jun, [facility] [address] [id number], [place] [id number] May, [facility] [place] [facility] [address]00565100[place], [place] [address] May, [facility] [address] [id number], [place] [id number] Apr, [facility] [place] [facility] [address] [id number], [place] [address] Apr, [facility] [address] [id number], [place] [id number] Mar, [facility] [place] [facility] [address]00565100[place], [place] [address] Mar, [facility] [address] [id number], [place] [id number] Mar, [facility] [place] [facility] [address] [facility] [id number], [place] [address] Mar, [facility] [address] [facility] [id number], [place] [id number] Mar, [facility] [place] [facility] [address] [facility] [id number], [place] [address] Mar, [facility] [address] [facility] [id number], [place] [id number] Mar, [facility] [place] [facility] [address] [facility] [id number], [place] [address] Mar, [facility] [address] [facility] [id number], [place] 193978191 Feb, [facility] [place] [facility] [address] [facility] [id number], [place] [address]- [address] Feb, [facility] [id number], [place] [id number] Feb, [facility] [place] [facility] [address] [facility] [id number], [place] [address]- [address] Feb, [facility] [address] [facility] [id number], [place] [id number] Feb, [facility] [place] [facility] [address] [facility] [id number], [place] [address]- 8[address] Feb, [facility] [address] [facility] [id number], [place] [id number] Jan, [facility] [place] [facility] [address] [facility] [id number], [place] [address] Jan, [facility] [address] [facility] [id number], [place] [id number] Jan, [facility] [place] [facility] [address] [facility] [id number], [place] [address]- [address] Jan, [facility] [address] [facility] [id number], [place] [id number] Sep, [facility] [place] [facility] [address] [facility] [id number], [place] [address]- [address] Sep, [facility] [place] [facility] [address] [facility] [id number] [place] [address]- [address] Sep, [facility] [address] [facility] [id number] [place] [id number] Sep, [facility] [place] [facility] [address] [facility] [id number] [place] [address]- 16[address] Sep, [facility] [place] [facility] [address] [facility] [id number] [place] [address]- [address] Sep, [facility] [address] [facility] [id number] [place] [id number] Jul, [facility] [place] [facility] [address] [facility] [id number] [place] [address]- 3[address] Jul, [facility] [address] [facility] [id number] [place] [id number] Jun, [facility] [place] [facility] [address] [facility] [id number], [place] [address]- 39[address] Jun, [facility] [address] [facility] [id number], [place] [id number] Jun, [facility] [place] [facility] [address] [facility] [id number], [place] [address]- [address] Jun, [facility] [address] [facility] [id number], [place] [id number] Apr, [facility] [place] [facility] [address] [facility] [id number], [place] [address]- [address] Apr, [facility] [address] [facility] [id number], [place] [id number] Mar, [facility] [place] [facility] [address] [facility] [id number], [place] [address]- 25[address] Mar, [facility] [address] [facility] [id number], [place] [id number] Mar, [facility] [place] [facility] [address] [facility] [id number], [place] [address]- 6[address] Mar, [facility] [address] [facility] [id number], [place] [id number] Feb, [facility] [address] [facility] [id number], [place] [address]- [address] Feb, [facility] [address] [id number] [place] [id number] Jan, [facility] [place] [facility] [address] [facility] [id number], [place] [address]- [address] Jan, [facility] [address] [id number] [place] [id number] Dec, [facility] [address] [facility] [id number], [place] [address]- [address] 16 Dec, 2012 [facility] [address] [id number] [place] 659350688 Dec, [facility] [address] [id number] [place] [id number] Dec, [facility] [address] [id number], [place] [id number] Oct, [facility] [address] [facility] [id number], [place] [address]- 9[address] Oct, [facility] [address] [facility] [id number], [place] [address]- [address] Oct, [facility] [address] [id number], [place] [id number] Oct, [facility] [address] [id number], [place] 467317186 Sep, [facility] [address] [id number], [place] 399352962 August, [facility] [address] [id number] [place] [id number] August, [facility] [address] [id number] [place] [id number] August, [facility] [address] [id number] [place] [id number] Jul, [facility] [place] [facility] [address] [facility] [id number], [place] [address]- 7[address] Jul, [facility] [address] [id number] [place] [id number] Jul, [facility] [address] [id number] [place] [id number] Jun, [facility] [address]00565100[place], [place] [address]- [address] Jun, [facility] [address] [id number] [place] [id number] Jun, [facility] [address] [id number] [place] [id number] Jun, [facility] [address] [id number] [place] 118931302 Jun, [facility] [address] [id number] [place] [id number] Jun, [facility] [address] [id number] [place] [id number] Jun, [facility] [address] [id number] [place] [id number] Feb, [facility] [place] [address] [place] [address]- 2546 Feb, [facility] [address] [id number] [place] [id number] Jan, [facility] [address] [id number] [place] [id number] Nov, [facility] [address] [id number], [place] 613415871 Oct, [facility] [address] [id number], [place] 496245093 Oct, [facility] [address] [id number], [place] 562344747 Sep, [facility] [place] [id number] [place] [address]- 9641 Mar, [facility] [place] [address]00565100[place], [place] [address]- 6[address] Nov, IMMUNIZATIONS No Known Immunizations SOCIAL HISTORY Never Assessed REASON FOR VISIT had kidney stone about a month ago, was having lower back pain, seems to be better, but feels maybe sciatic nerve on left side is flaring up. eb Avendano PLAN OF CARE Activity Details Follow Up 4 Weeks Reason:sciatica VITAL SIGNS Height 67 in 2017-03-30 Weight 291.6 lbs 2017-03-30 Temperature 98.2 degrees Fahrenheit 2017-03-30 Heart Rate 92 bpm 2017-03-30 Respiratory Rate 16 2017-03-30 BMI 45.67 kg/m2 2017-03-30 Blood pressure systolic 128 mmHg 2017-03-30 Blood pressure diastolic 80 mmHg 2017-03-30 MEDICATIONS Medication Instructions Dosage Frequency Start Date End Date Duration Status Zyrtec Allergy 10 mg Orally Once a day 1 tablet 24h Active Albuterol Sulfate HFA cfc free 90 mcg/inh Inhalation every 4 hrs 2 puffs as needed 4h Dec, Active Spiriva HandiHaler 18 MCG Inhalation Once a day 1 capsule 24h Active Hydrocodone-Acetaminophen 5-325 MG Orally every 6 hrs 1 tablet as needed 6h Mar, 10 days Active Pantoprazole Sodium 40 mg Orally Once a day 1 tablet 24h Active Gabapentin 300 MG Orally Three times a day 1 capsule 1 tab qhs x 5 d then bid x 5 d then tid 8h Mar, 30 day(s) Active Methocarbamol 500 mg Orally 3 times a day 1 tablets 8h Oct, Active Duloxetine HCl 30 MG Orally Twice a day 1 capsule 12h Nov, 30 day(s) Active Ondansetron 4 MG Orally every 4 hrs 1 tablet on the tongue and allow to dissolve 4h Feb, 30 day(s) Active Lisinopril 10 mg 1 tablet Once a day Orally Active Flonase 50 mcg/act Nasally Once a day 2 spray in each nostril 24h Apr, Active Tamsulosin HCl 0.4 MG Orally Once a day 1 capsule 24h Feb, 14 days Active Symbicort 80-4.5 MCG/ACT Inhalation Twice [...] Surgical History cholecystectomy 1979 Hospitalization History [facility] for [facility] 2012 Hospitalization History [facility] x 3 days for stomach flu 07/24/15 Hospitalization History [facility] for vomiting-given mag citrate for "blockage" 03/09/2016
--- OUTSIDE RECORDS SUMMARY | 2018-04-15 01:33 | XMS REPORT ---
Author Author VIJAY JAROD Organization [facility] Address [address] [place] [address] Care Team Providers Care Manager Assurance Name Role Phone VIJAYMALISSAJAROD Unavailable PROBLEMS Type Condition ICD9-CM Code JGH46-IG Code Onset Dates Condition Status SNOMED Code Problem Overactive bladder N32.81 Active 676940607 Problem Acute exacerbation of chronic obstructive pulmonary disease (COPD) J44.1 Active 718842359 Problem CAP (community acquired pneumonia) J18.9 Active 370638892 Problem Hereditary and idiopathic neuropathy, 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 Active 66039705 Problem Sciatica of left side M54.32 Active 44754194 Problem Dysthymia F34.1 Active 45199644 Problem Moderate single current episode of major depressive disorder F32.1 Active 54273109 Problem Back pain with left-sided radiculopathy M54.10 Active 835561596 Problem Kidney stone N20.0 Active 13229393 Problem Female stress incontinence 625.6 Active 80219750 Problem Chronic airway obstruction, not elsewhere classified 496 Active 29158008 Problem Lumbago 724.2 Active 682209886 Problem Sciatica 724.3 Active 07795043 Problem Mood disorder F39 Active 22858935 Problem Essential hypertension I10 Active 64176908 Problem Nondependent tobacco use disorder 305.1 Active 068332273 Problem Chronic airway obstruction, not elsewhere classified J44.9 Active 29930542 Problem Chronic rhinitis J31.0 Active 48648071 Problem Lung nodule R91.1 Active 629294356 ALLERGIES No Information ENCOUNTERS Encounter Location Date Diagnosis [facility] [address] [facility] [id number] [id number] Jul, [facility] [address] [facility] [id number], [place] [id number] Jul, [place] [address] [facility] [id number][place] [address]397[address] Jun, Back pain with left-sided radiculopathy M54.10 [facility] [place] [id number], [place] [id number] May, Chronic airway obstruction, not elsewhere classified J44.9 and Encounter for immunization Z23 [facility] [place] [id number], [place] [id number] Apr, BMI 45.0-49.9, adult Z68.42 ; Back pain with left-sided radiculopathy M54.10 ; Chronic airway obstruction, not elsewhere classified J44.9 and Dysthymia F34.1 [facility] [place] [id number] [place] [address] [id number] Mar, Sciatica of left side M54.32 ; Back pain with left-sided radiculopathy M54.10 and Hereditary and idiopathic neuropathy, 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 [facility] [place] [id number] [place] [address] [id number] Mar, Flank pain R10.9 ; Urinary urgency R39.15 and Chronic airway obstruction, not elsewhere classified J44.9 [facility] [place] [id number], [place] [id number] Mar, Dysthymia F34.1 [facility] [address] [id number][place] [id number] Feb, [facility] [address] [facility] [id number], [place] [address] Feb, [facility] [id number], [place] [address]444837 Feb, Hematuria, unspecified type R31.9 ; Kidney stone N20.0 and BMI 40.0-44.9, adult Z68.41 [facility] [address] [place], [id number], [place] [address] Feb, [facility] [address] [id number], [place] [id number] Feb, [facility] [address] [place] [id number] [place] [address] [id number] Feb, [place] [address] [place] [id number] [place] [address] [id number] Feb, Encounter for immunization Z23 ; Dysthymia F34.1 ; Acute nasopharyngitis J00 ; Chronic rhinitis J31.0 and Chronic airway obstruction, not elsewhere classified J44.9 [facility] [address]00565100[place] [address] Jan, Well woman exam Z01.419 ; Left breast lump N63.20 and BMI 40.0-44.9, adult Z68.41 [facility] [place] [address] [place] [id number] [place] [address] [id number] Jan, Muscle cramps R25.2 [facility] [place] [address] [id number] Dec, Dysthymia F34.1 [facility] [place] [address] [id number] Dec, Muscle cramps R25.2 [facility] [place] [address] [place] [id number] [place] [address] [id number] Nov, Dysthymia F34.1 [facility] [place] [address] [place] [id number] [place] [address] [id number] Oct, [facility] [place] [address] [place] [id number] [place] [address] [id number] Oct, Chronic airway obstruction, not elsewhere classified J44.9 ; Moderate single current episode of major depressive disorder F32.1 ; Chronic rhinitis J31.0 and Muscle cramps R25.2 [facility] [place] [address] [place] [address] [id number] [place] [address] [id number] Sep, Acute nasopharyngitis J00 [facility] [id number] [place] [address] Jun, Acute exacerbation of chronic obstructive pulmonary disease (COPD) J44.1 [facility] [address] [place] [id number] [place] [address] [id number] Jun, Acute nasopharyngitis J00 [facility] [address] [place] [address] [id number] [place] [address] [id number] Jun, [facility] [address]00565100[place] [address] Apr, [facility] [id number] [place] [address] [id number] Mar, Acute nasopharyngitis J00 [facility] [address] [id number], [place] [id number] Mar, [facility] [address] [id number] [place] [address] [id number] Mar, [facility] [address] [id number] [place] [address] [id number] Feb, CAP (community acquired pneumonia) J18.9 and Chronic rhinitis J31.0 [facility] [address] [place] [id number] [place] [address] [id number] Feb, CAP (community acquired pneumonia) J18.9 [facility] [id number] [place] [address] [id number] Feb, CAP (community acquired pneumonia) J18.9 [facility] [id number], [place] [id number] Feb, [facility] [id number] [place] [address] [id number] Jan, Mood disorder F39 [facility] [address]00565100[place] [address] Jan, [facility] [id number], [place] [id number] Jan, Lung nodule R91.1 [facility] [address] [id number], [place] [id number] Jan, Lung nodule R91.1 [facility] [address] [id number], [place] [id number] Jan, Lung nodule R91.1 [facility] [address] [id number], [place] [id number] Jan, Lung nodule R91.1 [facility] [address] [id number], [place] [id number] Jan, [facility] [address] [place] [id number] [place] [address] [id number] Nov, Overactive bladder N32.81 ; Chronic airway obstruction, not elsewhere classified J44.9 and Essential hypertension I10 [address] [id number] Oct, [address] [id number] Oct, Acute non-recurrent sinusitis, unspecified location J01.90 ; Cough R05 and Tobacco dependence F17.[address] [id number] Sep, Overactive bladder N32.81 and Chronic airway obstruction, not elsewhere classified J44.[address] [id number] August, Chronic airway obstruction, not elsewhere classified J44.9 ; Mood disorder F39 and Urinary frequency R35.[address] [id number] August, [address] [id number] Jul, Lung nodule R91.1 ; Chronic airway obstruction, not elsewhere classified J44.9 and Urinary tract infection without hematuria, site unspecified N39.0 [place] [id number] [place] [address] [id number] Jul, Lung nodule R91.1 [place] [id number] [place] [address] [id number] Jul, [address] [id number] Jul, Diarrhea R19.7 and Lung nodule R91.[address] [id number] Apr, Upper respiratory tract infection, unspecified type J06.9 and COPD exacerbation J44.1 [place] [id number] [place] [address] [id number] Mar, [address] [id number] Feb, Mood disorder F39 and Essential hypertension I10 [facility] [address] [facility] [id number], [place] [id number] Jan, Essential hypertension I10 ; Mood disorder F39 ; Chronic airway obstruction, not elsewhere classified J44.9 and Chronic rhinitis J31.0 [facility] [place] [address] [facility] [id number], [place] [id number] Jan, [facility] [id number], [place] [id number] Jan, [facility] [address] [facility] [id number][place] [id number] Jan, [facility] [place] [id number] [place] [address] [id number] Jan, [facility] [place] [address] [place] [id number], [place] [id number] Dec, Bronchitis 490 [facility] [address] [place] [id number], [place] [address]49[address] Dec, [facility] [place] [address] [place] [id number], [place] 510293960 Sep, Rhinitis 472.0 [facility] [address] [place] [id number] [place] [address] Jul, [facility] [place] [facility] [address]00565100[place], [place] [address] Jul, [facility] [address] [place] [id number], [place] [id number] Jun, [facility] [place] [facility] [address]00565100[place], [place] [address] Jun, [facility] [place] [facility] [address] [place] [id number] [place] [address] 98070497- [address] Jun, [facility] [address] [place] [id number], [place] [id number] May, [facility] [place] [facility] [address]00565100[place], [place] [address] May, [facility] [id number] [place] [id number] Apr, [facility] [place] [facility] [address] [id number][place] [address] Apr, [facility] [address] [id number] [place] [id number] Mar, [facility] [place] [facility] [address]00565100[place] [address] Mar, [facility] [address] [id number], [place] [id number] Mar, [facility] [place] [facility] [address] [facility] [id number][place] [address] Mar, [facility] [address] [facility] [id number], [place] 876394685 Mar, [facility] [place] [facility] [address]65100[place], [place] [address]- [address] Mar, [facility] [address] [facility] [id number], [place] [id number] Mar, [facility] [place] [facility] [address] [facility] [id number], [place] [address]- [address]67 Mar, [facility] [address] [facility] [id number], [place] [id number] Feb, [facility] [place] [facility] [address]00565100[place], [place] [address] Feb, [facility] [address] [id number], [place] [id number] Feb, [facility] [place] [facility] [address] [facility] [id number], [place] [address] Feb, [facility] [address] [id number] [place] [id number] Feb, [facility] [place] [facility] [address] [facility] [id number] [place] [address]- 94[address] Feb, [facility] [address] [id number], [place] [id number] Jan, [facility] [facility] [address] [facility] [id number], [place] [address] Jan, [facility] [address] [facility] [id number] [place] [id number] Jan, [facility] [place] [facility] [address] [facility] [id number] [place] [address]- [address] Jan, [facility] [address] [facility] [id number] [place] [id number] Sep, [facility] [place] [facility] [address] [facility] [id number][place] [address]- [address] Sep, [facility] [place] [facility] [address] [facility] [id number] [place] [address]- 97[address] Sep, [facility] [address] [facility] [id number], [place] [id number] Sep, [facility] [place] [facility] [address] [facility] [id number], [place] [address]- 8[address] Sep, [facility] [place] [facility] [address] [facility] [id number][place] [address]- 49[address] Sep, [facility] [address] [facility] [id number] [place] [id number] Jul, [facility] [place] [facility] [address] [facility] [id number][place] [address]- 3110 Jul, [facility] [address] [facility] [id number], [place] 635962585 Jun, [facility] [place] [facility] [address] [facility] [id number], [place] [address] Jun, [facility] [address] [facility] [id number], [place] [id number] Jun, [facility] [place] [facility] [address] [facility] [id number][place] [address]- [address] Jun, [facility] [address] [facility] [id number] [place] 926110112 Apr, [facility] [place] [facility] [address] [facility] [id number], [place] [address]- [address] Apr, [facility] [address] [id number] [place] [id number] Mar, [facility] [address] [facility] [id number][place] [address]- [address] Mar, [facility] [address] [id number] [place] [id number] Mar, [facility] [address] [facility] [id number], [place] [address] 254 Mar, [facility] [address] [id number] [place] [id number] Feb, [facility] [address] [facility] [id number], [place] [address]- 5[address] Feb, [facility] [address] [facility] [id number] [place] 838918140 Jan, [facility] [address]00565100[place], [place] [address]42 Jan, [facility] [address] [id number], [place] [id number] Dec, [facility] [address] [facility] [id number], [place] [address] 2546 Dec, [facility] [address] [id number], [place] 070721058 Dec, [facility] [address] [id number], [place] 075732187 Dec, [facility] [address] [id number], [place] [id number] Oct, [facility] [place] [facility] [address] [facility] [id number][place] [address]- 2546 Oct, [facility] [place] [facility] [address] [facility] [id number], [place] [address]- 2546 Oct, [facility] [address] [id number], [place] 725688055 Oct, [facility] [address] [id number], [place] 406843852 Sep, [facility] [address] [id number] [place] [id number] August, [facility] [address] [id number] [place] 978903570 August, [facility] [address] [id number] [place] [id number] August, [facility] [address] [id number] [place] 976672961 Jul, [facility] [address] [facility] [id number] [place] [address]- [address] Jul, [facility] [address] [id number] [place] 142192417 Jul, [facility] [address] [id number] [place] [id number] Jun, [facility] [address] [facility] [id number][place] [address]- [address] Jun, [facility] [address] [id number] [place] 945555626 Jun, [facility] [address] [id number] [place] [id number] Jun, [facility] [address] [id number] [place] 134126172 Jun, [facility] [address] [id number] [place] 364567870 Jun, [facility] [address] [id number] [place] [id number] Jun, [facility] [address] [id number] [place] [id number] Feb, [facility] [address] [id number][place] [address]- [address] Feb, [facility] [address] [id number] [place] [id number] Jan, [facility] [address] [id number] [place] [id number] Nov, [facility] [address] [id number] [place] [id number] Oct, [facility] [address] [id number] [place] [id number] Oct, [facility] [address] [facility] [id number] [place] 800179520 Sep, [facility] [address] [facility] [id number] [place] [address] Mar, [facility] [address] [facility] [id number] [place] [address]- [address] Nov, IMMUNIZATIONS No Known Immunizations SOCIAL HISTORY Never Assessed REASON FOR VISIT Waiting for call back PLAN OF CARE VITAL SIGNS MEDICATIONS Unknown [...] cholecystectomy 1979 Hospitalization History [facility] for pneumonia 2012 Hospitalization History [facility] x 3 days for stomach flu 07/24/15 Hospitalization History [facility] for [facility]-given mag citrate for "blockage" 03/09/2016
--- OUTSIDE RECORDS SUMMARY | 2018-04-15 01:33 | XMS REPORT ---
Author Author KATERINA SMITH Organization [employer] Address Unknown Phone Unavailable Care Team Providers Care Medical Microbiologist Name Role Phone KAETRINA SMITH CP Unavailable Allergies No Known Allergies [...] Date End Date Status Dosage Spiriva HandiHaler [facility] [id number] MCG Inhalation Once a day 1 capsule Results No Known Results Summary Purpose [employer] Submission
--- OUTSIDE RECORDS SUMMARY | 2018-04-15 01:34 | XMS REPORT | CCD ---
Author Author YASMINE BANKS Organization Unknown Address [address] [facility] [address] [place], [place] [address] Care Team Providers Care Building Drafting Officer Name Role Phone NUHA COTTRELL, KATERINA Pastor NUHA COTTRELL, KATERINA Covarrubias Vital Signs Unknown. Allergies Unknown. Procedures Unknown. History of Immunizations Unknown. Problems Unknown. Results RAPID DRUG SCREEN Test Name Code Test Result Test Units Test Date/ Time Cannabinoids (THC) NEGATIVE N/A 10/13/2013 20:29 Phencyclidine (PCP) NEGATIVE N/A 10/13/2013 20: 29 Cocaine NEGATIVE N/A 10/13/2013 20:29 Methamphetamine NEGATIVE N/A 10/13/2013 20:29 Opiates NEGATIVE N/A 10/13/2013 20:29 Amphetamine NEGATIVE N/A 10/13/2013 20:29 Benzodiazepines NEGATIVE N/A 10/13/2013 20:29 Tricyclic Antidepres NEGATIVE N/A 10/13/2013 20: 29 Methadone NEGATIVE N/A 10/13/2013 20:29 Barbiturates NEGATIVE N/A 10/13/2013 20:29 Oxycodone NEGATIVE N/A 10/13/2013 20:29 Propoxyphene (PPX) NEGATIVE N/A 10/13/2013 20:29 URINALYSIS C&S IF IND Test Name Code Test Result Test Units Test Date/ Time COLOR ORANGE N/A 10/13/2013 20:29 APPEARANCE CLEAR N/A 10/13/2013 20:29 SPEC GRAV <=1.005 N/A 10/13/2013 20:29 pH 5.0 N/A 10/13/2013 20:29 PROTEIN TRACE N/A 10/13/2013 20:29 GLUCOSE 100 N/A 10/13/2013 20:29 KETONE NEGATIVE N/A 10/13/2013 20:29 BILIRUBIN NEGATIVE N/A 10/13/2013 20:29 BLOOD TRACE-INTACT N/A 10/13/2013 20:29 NITRITE POSITIVE N/A 10/13/2013 20:29 LEUK SCREEN TRACE N/A 10/13/2013 20:29 WBC/HPF 10-20 N/A 10/13/2013 20:29 RBC/HPF RARE N/A 10/13/2013 20:29 CASTS/LPF NEGATIVE N/A 10/13/2013 20:29 CRYSTALS NEGATIVE N/A 10/13/2013 20:29 MUCOUS THRDS NEGATIVE N/A 10/13/2013 20:29 BACTERIA FEW N/A 10/13/2013 20:29 EPITH CELLS FEW SQUAMOUS N/A 10/13/2013 20:29 TRICHOMONAS NEGATIVE N/A 10/13/2013 20:29 YEAST NEGATIVE N/A 10/13/2013 20:29 CULT SET UP? YES N/A 10/13/2013 20:29 Medications Unknown. Medications Administered Unknown. Encounters Encounter Diagnosis Diagnosis Code Start Date PYELONEPHRITIS NOS 37708 10/13/2013 Social History Smoking Status Code Start Date End Date Current every day smoker [id number] Patient Decision Aids Unknown. Discharge Instructions You were admitted to [facility] on 10/13/2013 with a principle diagnosis of PYELONEPHRITIS NOS. You were discharged from [facility] on 10/13/2013. Should you have any questions prior to discharge, please contact a member of your healthcare team. If you have left the hospital and have any questions, please contact your primary care physician. Chief Complaint and Reason For Visit Chief Complaint Date of Onset ALLERGIC REACTION Function Status Unknown. Referral/Transition of Care Unknown.
--- OUTSIDE RECORDS SUMMARY | 2018-04-15 01:34 | XMS REPORT ---
Author Author KATERINA SMITH [facility] Address [address] [place] [address] Care Team Providers Care Transportation Engineering Technician Name Role Phone KATERINA SMITH Unavailable PROBLEMS Type Condition ICD9-CM Code YJT04-AS Code Onset Dates Condition Status SNOMED Code Problem Overactive bladder N32.81 Active 206982676 Problem Acute exacerbation of chronic obstructive pulmonary disease (COPD) J44.1 Active 421960657 Problem CAP (community acquired pneumonia) J18.9 Active 474757070 Problem Hereditary and idiopathic neuropathy, 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 Active 75945360 Problem Sciatica of left side M54.32 Active 94097654 Problem Dysthymia F34.1 Active 98712749 Problem Moderate single current episode of major depressive disorder F32.1 Active 92159289 Problem Back pain with left-sided radiculopathy M54.10 Active 269408385 Problem Kidney stone N20.0 Active 05843335 Problem Female stress incontinence 625.6 Active 99704792 Problem Chronic airway obstruction, not elsewhere classified 496 Active 17421938 Problem Lumbago 724.2 Active 064451056 Problem Sciatica 724.3 Active 18130711 Problem Mood disorder F39 Active 87692672 Problem Essential hypertension I10 Active 34782430 Problem Nondependent tobacco use disorder 305.1 Active 960147656 Problem Chronic airway obstruction, not elsewhere classified J44.9 Active 48500581 Problem Chronic rhinitis J31.0 Active 37372572 Problem Lung nodule R91.1 Active 252102643 ALLERGIES No Information ENCOUNTERS Encounter Location Date Diagnosis [id number] [id number] Jul, [address] [id number] Jul, Chronic airway obstruction, not elsewhere classified J44.9 [id number] [id number] Jul, BMI 45.0-49.9, adult Z68.42 and Infective urethritis N34.2 [facility] [id number], [place] [id number] Jul, [facility] [id number] [place] [address] [id number] Jun, Back pain with left-sided radiculopathy M54.10 [facility] [id number] [place] [address] [id number] May, Chronic airway obstruction, not elsewhere classified J44.9 and Encounter for immunization Z23 [facility] [address] [id number] Apr, BMI 45.0-49.9, adult Z68.42 ; Back pain with left-sided radiculopathy M54.10 ; Chronic airway obstruction, not elsewhere classified J44.9 and Dysthymia F34.1 [facility] [address] [place] [address] [id number] Mar, Sciatica of left side M54.32 ; Back pain with left-sided radiculopathy M54.10 and Hereditary and idiopathic neuropathy, 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 [facility] [address] [address] Mar, Flank pain R10.9 ; Urinary urgency R39.15 and Chronic airway obstruction, not elsewhere classified J44.9 [facility] [id number] [id number] Mar, Dysthymia F34.1 [facility] [address] [facility] [id number] [id number] Feb, [facility] [address] [facility] [id number][place] [address] Feb, [facility] [address] [id number][place] [address] Feb, Hematuria, unspecified type R31.9 ; Kidney stone N20.0 and BMI 40.0-44.9, adult Z68.41 [facility] [address] [id number] [address] Feb, [facility] [address] [id number] [id number] Feb, [facility] [id number][place] [id number] Feb, [facility] [id number], [place] [address] Feb, Encounter for immunization Z23 ; Dysthymia F34.1 ; Acute nasopharyngitis J00 ; Chronic rhinitis J31.0 and Chronic airway obstruction, not elsewhere classified J44.9 [facility] [id number] [place] [address] Jan, Well woman exam Z01.419 ; Left breast lump N63.20 and BMI 40.0-44.9, adult Z68.41 [facility] [id number] [place] [address] [id number] Jan, Muscle cramps R25.2 [facility] [id number] [place] [address] [id number] Dec, Dysthymia F34.1 [facility] [id number] [place] [address] [id number] Dec, Muscle cramps R25.2 [facility] [id number] [place] [address] [id number] Nov, Dysthymia F34.1 [facility] [id number] [place] [address] [id number] Oct, [facility] [id number], [place] [id number] Oct, Chronic airway obstruction, not elsewhere classified J44.9 ; Moderate single current episode of major depressive disorder F32.1 ; Chronic rhinitis J31.0 and Muscle cramps R25.2 [facility] [id number], [place] [id number] Sep, Acute nasopharyngitis J00 [facility] [address]00565100[place], [place] [address] Jun, Acute exacerbation of chronic obstructive pulmonary disease (COPD) J44.1 [facility] [id number] [place] [address] [id number] Jun, Acute nasopharyngitis J00 [facility] [id number] [place] [address] [id number] Jun, [facility] [id number] [place] [address] Apr, [facility] [id number] [place] [address] [id number] Mar, Acute nasopharyngitis J00 [facility] [id number] [place] [address] [id number] Mar, [facility] [id number] [place] [address] [id number] Mar, [facility] [id number] [place] [address] [id number] Feb, CAP (community acquired pneumonia) J18.9 and Chronic rhinitis J31.0 [facility] [id number] [place] [address] [id number] Feb, CAP (community acquired pneumonia) J18.9 [facility] [id number] [place] [address] [id number] Feb, CAP (community acquired pneumonia) J18.9 [facility] [id number] [place] [address] [id number] Feb, [facility] [id number] [place] [address] [id number] Jan, Mood disorder F39 [facility] [address]00565100[place], [place] [address] Jan, [facility] [id number] [place] [address] [id number] Jan, Lung nodule R91.1 [facility] [id number] [place] [address] [id number] Jan, Lung nodule R91.1 [facility] [id number] [place] [address] [id number] Jan, Lung nodule R91.1 [facility] [id number] [place] [address] [id number] Jan, Lung nodule R91.1 [facility] [id number] [place] [address] [id number] Jan, [facility] [address] [place] [address] [id number] Nov, Overactive bladder N32.81 ; Chronic airway obstruction, not elsewhere classified J44.9 and Essential hypertension I10 [facility] [address] [id number] Oct, [address] [id number] Oct, Acute non-recurrent sinusitis, unspecified location J01.90 ; Cough R05 and Tobacco dependence F17.[address] [id number] Sep, Overactive bladder N32.81 and Chronic airway obstruction, not elsewhere classified J44.9 [address] [place] [address] [id number] August, Chronic airway obstruction, not elsewhere classified J44.9 ; Mood disorder F39 and Urinary frequency R35.0 [facility] [id number] [place] [address] [id number] August, [id number] [place] [address] [id number] Jul, Lung nodule R91.1 ; Chronic airway obstruction, not elsewhere classified J44.9 and Urinary tract infection without hematuria, site unspecified N39.0 [facility] [id number] [place] [address] [id number] Jul, Lung nodule R91.[address] [id number] Jul, [id number] [place] [address] [id number] Jul, Diarrhea R19.7 and Lung nodule R91.1 [id number] [place] [address] [id number] Apr, Upper respiratory tract infection, unspecified type J06.9 and COPD exacerbation J44.1 [facility] [address] [id number], [place] [id number] Mar, [facility] [id number] [place] [address] [id number] Feb, Mood disorder F39 and Essential hypertension I10 [facility] [address]005[address], [place] [id number] Jan, Essential hypertension I10 ; Mood disorder F39 ; Chronic airway obstruction, not elsewhere classified J44.9 and Chronic rhinitis J31.0 [facility] [address] [id number], [place] [id number] Jan, [facility] [address] [id number] [id number] Jan, [facility] [address] [id number], [place] [id number] Jan, [facility] [address] [facility] [id number], [place] [id number] Jan, [facility] [address] [id number], [place] [id number] Dec, [facility] [address] [id number], [place] [phone] Dec, [facility] [address] [id number], [place] [id number] Sep, Rhinitis 472.0 [facility] [address]00565100[place], [place] [address] Jul, [facility] [place] [facility] [address] [id number], [place] [address] Jul, [facility] [address] [id number], [place] [id number] Jun, [facility] [place] [facility] [address] [id number] [address] Jun, [facility] [address]00565100[place], [place] [address] Jun, [facility] [address] [id number] [place] [id number] May, [facility] [place] [facility] [address] [facility] [id number], [place] [address] May, [facility] [address] [id number] [place] [id number] Apr, [facility] [place] [facility] [address] [facility] [id number], [place] [address] Apr, [facility] [address] [id number], [place] [id number] Mar, [facility] [place] [facility] [address] [facility] [id number], [place] [address] Mar, [facility] [address] [facility] [id number], [place] [id number] Mar, [facility] [place] [facility] [address]00565100[place], [place] [address] Mar, [facility] [address] [id number], [place] 837652352 Mar, [facility] [place] [facility] [address]00565100[place], [place] [address] Mar, [facility] [address] [id number], [place] 976337919 Mar, [facility] [place] [facility] [address] [facility] [id number], [place] [address] Mar, [facility] [address] [id number], [place] [id number] Feb, [facility] [place] [facility] [address] [facility] [id number], [place] [address] Feb, [facility] [address] [id number], [place] [id number] Feb, [facility] [place] [facility] [address] [facility] [id number], [place] [address] Feb, [facility] [address] [facility] [id number], [place] [address] Feb, [facility] [place] [facility] [address] [id number] [place] [address]- [address] Feb, [facility] [address] [facility] [id number], [place] [address]1194 Jan, [facility] [facility] [address] [facility] [id number], [place] [address]- [address] Jan, [facility] [address] [facility] [id number], [place] [address]126013 Jan, [facility] [place] [facility] [address] [facility] [id number] [place] [address] Jan, [facility] [address] [facility] [id number], [place] [address]49324533 Sep, [facility] [facility] [address]00565100[place], [place] [address] Sep, [facility] [place] [facility] [address] [id number], [place] [address]- 59[address] Sep, [facility] [address] [facility] [id number] [place] [id number] Sep, [facility] [place] [facility] [address]00565100[place], [place] [address]- [address] Sep, [facility] [place] [facility] [address] [id number], [place] [address] Sep, [facility] [address] [facility] [id number], [place] 193919282 Jul, [facility] [place] [facility] [address] [facility] [id number], [place] [address] Jul, [facility] [address] [facility] [id number] [place] [id number] Jun, [facility] [place] [facility] [address] [facility] [id number] [place] [address]- 2546 Jun, [facility] [address] [facility] [id number], [place] 900[address]3569 Jun, [facility] [place] [facility] [address] [facility] [id number], [place] [address] Jun, [facility] [address] [facility] [id number], [place] 8106[address]306 Apr, [facility] [place] [facility] [address] [facility] [id number], [place] [address]- [address] Apr, [facility] [address] [facility] [id number], [place] [id number] Mar, [facility] [place] [facility] [address] [facility] [id number], [place] [address]- [address] Mar, [facility] [address] [facility] [id number], [place] 885891509 Mar, [facility] [address] [facility] [id number], [place] [address]- 6[address] Mar, [facility] [address] [id number], [place] 585400830 Feb, [facility] [address]00565100[place], [place] [address]- [address] Feb, [facility] [address] [facility] [id number], [place] 470239884 Jan, [facility] [address]00565100[place], [place] [address]- [address] Jan, [facility] [address] [facility] [id number], [place] [id number] Dec, [facility] [place] [facility] [address] [id number], [place] [address]- [address] Dec, [facility] [address] [facility] [id number], [place] 680329747 Dec, [facility] [address] [facility] [id number], [place] 482553985 Dec, [facility] [address] [facility] [id number], [place] 389367414 Oct, [facility] [place] [facility] [address] [facility] [id number], [place] [address]- 20[address] Oct, [facility] [place] [facility] [address] [id number], [place] [address]- 25[address] Oct, [facility] [address] [id number] [place] 106388887 Oct, [facility] [address] [id number] [place] 374863583 Sep, [facility] [address] [id number] [place] [id number] August, [facility] [address] [id number] [place] 793[address] August, [facility] [address] [id number] [place] 775188914 August, [facility] [address] [id number] [place] 425386899 Jul, [facility] [address] [facility] [id number], [place] [address]- [address] Jul, [facility] [address] [id number] [place] 316722626 Jul, [facility] [address] [id number] [place] 378164509 Jun, [facility] [address] [facility] [id number], [place] [address]- 2546 Jun, [facility] [address] [id number] [place] [id number] Jun, [facility] [address] [id number] [place] 005479092 Jun, [facility] [address] [id number] [place] 854446486 Jun, [facility] [address] [id number] [place] [id number] Jun, [facility] [address] [id number] [place] 897044894 Jun, [facility] [address] [id number] [place] 326933724 Feb, [facility] [address] [facility] [id number], [place] [address]- [address]46 Feb, [facility] [address] [id number] [place] [id number] Jan, [facility] [address] [facility] [id number], [place] 529288813 Nov, [facility] [address] [id number], [place] 45[address]1282 Oct, [facility] [address] [id number], [place] 909211375 Oct, [facility] [address] [id number], [place] 769881471 Sep, [facility] [address]00565100[place], [place] [address] Mar, [facility] [address]00565100[place], [place] [address]- [address] Nov, IMMUNIZATIONS No Known Immunizations SOCIAL HISTORY Never Assessed REASON FOR VISIT Methocarbamol refill PLAN OF CARE VITAL SIGNS MEDICATIONS Medication Instructions Dosage Frequency Start Date End Date Duration Status Methocarbamol 500 mg Orally 3 times a day 1 tablets 8h Oct, 30 days Active RESULTS No Results PROCEDURES No Known procedures INSTRUCTIONS MEDICATIONS ADMINISTERED No Known Medications MEDICAL (GENERAL) HISTORY Type Description Date Medical History hypertension Medical History allergies Medical History chronic obstructive pulmonary disease (COPD) Medical History anxiety Medical History sciatica Medical History acid reflux Medical History Pneumococcal inj (2012) Medical History depression Surgical History cholecystectomy 1979 Hospitalization History [facility] for pneumonia 2012 Hospitalization History [facility] x 3 days for stomach flu 07/24/15 Hospitalization History [facility]-given mag citrate for "blockage" 03/09/2016
--- OUTSIDE RECORDS SUMMARY | 2018-04-15 01:35 | XMS REPORT | Continuity of Care Document ---
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 AN ACUTE STRESS DISORDER 09/04/2013 DIGGS DO, SHIVANI K 496 COPD 09/04/2013 DIGGS DO, SHIVANI K 308.3 AN ACUTE STRESS DISORDER 09/04/2013 DIGGS DO, SHIVANI K 496 COPD 09/04/2013 DIGGS DO, SHIVANI K 308.3 AN ACUTE STRESS DISORDER 09/04/2013 DIGGS DO, SHIVANI K 496 COPD 09/04/2013 DIGGS DO, SHIVANI K 308.3 AN ACUTE STRESS DISORDER 09/04/2013 DIGGS DO, SHIVANI K 496 COPD 09/04/2013 DIGGS DO, SHIVANI K 308.3 AN ACUTE STRESS DISORDER 09/04/2013 DIGGS DO, SHIVANI K 496 COPD 09/04/2013 DIGGS DO, SHIVANI K 308.3 AN ACUTE STRESS DISORDER 09/04/2013 DIGGS DO, SHIVANI K 496 COPD 09/26/2013 DIGGS DO, SHIVANI K 788.1 DYSURIA 09/26/2013 DIGGS DO, SHIVANI K 788.1 DYSURIA 09/26/2013 DIGGS DO, SHIVANI K 788.1 DYSURIA 09/26/2013 DIGGS DO, SHIVANI K 788.1 DYSURIA 09/26/2013 DIGGS DO, SHIVANI K 788.1 DYSURIA 09/26/2013 DIGGS DO, SHIVANI K 788.1 DYSURIA 03/19/2014 DIGGS DO, SHIVANI K 599.0 URINARY TRACT INFECTION 03/19/2014 SHIVANI DIGGS DO K 599.0 URINARY TRACT INFECTION 03/19/2014 SHIVANI DIGGS DO K 599.0 URINARY TRACT INFECTION 06/29/2014 SHIVANI DIGGS DO K 461.0 ACUTE MAXILLARY SINUSITIS 07/01/2015 Ot 793.11 07/01/2015 WEN MASSEY MD Ot 496 07/01/2015 WEN MASSEY MD Ot 793.11 07/01/2015 Ot 530.81 07/01/2015 Ot 553.3 07/03/2015 Ot 530.81 07/03/2015 Ot 553.3 07/03/2015 LAZARO MEJIAS MD Ot A08.4 VIRAL INTESTINAL INFECTION, UNSPECIFIED 07/03/2015 LAZARO MEJIAS MD Ot F17.210 NICOTINE DEPENDENCE, CIGARETTES, UNCOMPL 07/03/2015 LAZARO MEJIAS MD Ot J44.9 CHRONIC OBSTRUCTIVE PULMONARY DISEASE, U 07/03/2015 LAZARO MEJIAS MD, Ot L50.9 URTICARIA, UNSPECIFIED 07/03/2015 LAZARO MEJIAS MD Ot R91.1 SOLITARY PULMONARY NODULE 07/15/2015 Ot 530.81 07/15/2015 Ot 553.3 08/01/2015 Ot 530.81 ESOPHAGEAL REFLUX 08/01/2015 Ot 553.3 DIAPHRAGMATIC HERNIA 08/01/2015 KATERINA SMITH CFNP Ot R91.1 SOLITARY PULMONARY NODULE 08/15/2015 KATERINA SMITH CFNP Ot R91.1 SOLITARY PULMONARY NODULE 01/22/2016 KATERINA SMITH CFNP Ot R91.1 SOLITARY PULMONARY NODULE 01/23/2016 KATERINA SMITH CFNP Ot R91.1 SOLITARY PULMONARY NODULE 03/04/2016 KATERINA SMITH CFNP Ot R91.1 SOLITARY PULMONARY NODULE 03/04/2016 KATERINA SMITH CFNP Ot R91.1 SOLITARY PULMONARY NODULE 03/16/2016 KATERINA SMITH CFNP Ot R91.1 SOLITARY PULMONARY NODULE 12/31/2016 Ot 793.11 SOLITARY PULMONARY NODULE 12/31/2016 WEN MASSEY MD Ot 496 CHR AIRWAY OBSTRUCT NEC 12/31/2016 WEN MASSEY MD Ot 793.11 SOLITARY PULMONARY NODULE 01/14/2017 Ot 793.11 SOLITARY PULMONARY NODULE 01/14/2017 BRYSON COTTRELL, WEN [place] Ot 496 CHR AIRWAY OBSTRUCT NEC 01/14/2017 BRYSON COTTRELL, WEN [place] Ot 793.11 SOLITARY PULMONARY NODULE 01/15/2017 Ot 793.11 SOLITARY PULMONARY NODULE 01/15/2017 BRYSON COTTRELL, WEN [place] Ot 496 CHR AIRWAY OBSTRUCT NEC 01/15/2017 BRYSON COTTRELL, WEN [place] Ot 793.11 SOLITARY PULMONARY NODULE 02/01/2017 KATERINA SMITH CFJIMENEZ Ot R91.1 SOLITARY PULMONARY NODULE 02/01/2017 KATERINA SMITH CFJIMENEZ Ot R91.1 SOLITARY PULMONARY NODULE 02/16/2017 BARNIDGE DO, PANDA Albright Ot Z12.31 ENCNTR SCREEN MAMMOGRAM FOR MALIGNANT NE 02/18/2017 BARNIDGE DO PANDA E Ot K57.30 DVRTCLOS OF LG INT W/O PERFORATION OR AB 02/18/2017 BARNIDGE DO, PANDA E Ot R19.03 RIGHT LOWER QUADRANT ABDOMINAL SWELLING, 02/18/2017 BARNIDGE DO, PANDA E Ot R91.1 SOLITARY PULMONARY NODULE 03/04/2017 BARNIDGE DO, PANDA E Ot K57.30 DVRTCLOS OF LG INT W/O PERFORATION OR AB 03/04/2017 BARNIDGE DO, PANDA E Ot R19.03 RIGHT LOWER QUADRANT ABDOMINAL SWELLING, 03/04/2017 BARNIDGE DO, PANDA E Ot R91.1 SOLITARY PULMONARY NODULE 07/11/2017 Margie Leblanc 041.49 OTHER AND UNSPECIFIED ESCHERICHIA COLI [E. COLI] INFECTION IN CONDITIONS CLASSIFIED ELSEWHERE AND OF UNSPECIFIED SITE 07/11/2017 Margie Leblanc 599.0 URINARY TRACT INFECTION, SITE NOT SPECIFIED 07/11/2017 Margie Leblanc 780.4 DIZZINESS AND GIDDINESS 07/11/2017 Margie Leblanc 787.02 NAUSEA ALONE 07/11/2017 Margie Leblanc B96.20 UNSP ESCHERICHIA COLI THE CAUSE OF DISEASES CLASSD ELSWHR 07/11/2017 Margie Leblanc N39.0 URINARY TRACT INFECTION, SITE NOT SPECIFIED 07/11/2017 Margie Leblanc R11.0 NAUSEA 07/11/2017 Margie Leblanc W R42 DIZZINESS AND GIDDINESS 07/11/2017 Margie Leblanc W 599.0 URINARY TRACT INFECTION, SITE NOT SPECIFIED 07/11/2017 Margie Leblanc W N39.0 URINARY TRACT INFECTION, SITE NOT SPECIFIED 07/27/2017 Ot 793.11 SOLITARY PULMONARY NODULE 07/27/2017 WEN MASSEY MD Ot 496 CHR AIRWAY OBSTRUCT NEC 07/27/2017 WEN MASSEY MD Ot 793.11 SOLITARY PULMONARY NODULE 12/31/2017 KATERINA SMITH CFNP Ot R91.1 SOLITARY PULMONARY NODULE 12/31/2017 KATERINA SMITH CFNP Ot R91.1 SOLITARY PULMONARY NODULE 12/31/2017 BARNIDGE DOPANDA Ot Z12.31 ENCNTR SCREEN MAMMOGRAM FOR MALIGNANT NE 12/31/2017 BARNIDGE DOPANDA Ot K57.30 DVRTCLOS OF LG INT W/O PERFORATION OR AB 12/31/2017 BARNIDGE DO, PANDA E Ot R19.03 RIGHT LOWER QUADRANT ABDOMINAL SWELLING, 12/31/2017 BARNIDGE DO, PANDA E Ot R91.1 SOLITARY PULMONARY NODULE 01/19/2018 KATERINA SMITH CFNP Ot R91.1 SOLITARY PULMONARY NODULE 01/19/2018 SMITHKATERINA ALONSO CFNP Ot R91.1 SOLITARY PULMONARY NODULE 01/19/2018 BARNIDGE DO, PANDA E Ot Z12.31 ENCNTR SCREEN MAMMOGRAM FOR MALIGNANT NE 01/19/2018 BARNIDGE DO, PANDA E Ot K57.30 DVRTCLOS OF LG INT W/O PERFORATION OR AB 01/19/2018 BARNIDGE DO, PANDA E Ot R19.03 RIGHT LOWER QUADRANT ABDOMINAL SWELLING, 01/19/2018 BARNIDGE DOPANDA E Ot R91.1 SOLITARY PULMONARY NODULE 01/23/2018 LINDA JARRELL MD Ot Z02.71 ENCOUNTER FOR DISABILITY DETERMINATION 03/15/2018 LINDA JARRELL MD Ot Z02.71 ENCOUNTER FOR DISABILITY DETERMINATION Procedures Code [place] [address] INFLUENZA A & B (IN-HOUSE) 06/10/2012 19080 NEBULIZER TREATMENT 06/20/[address] CHEST W/DYE 06/27/2012 32305 CREATININE 06/27/2012 03515 BUN 06/27/2012 30812 CBC 06/27/[address] 06/29/2012 20698 UA LONG DIP 09/26/2013 60604 UA LONG DIP 03/19/2014 Results Test Result Range SUREPATH PAP AND HPV mRNA E6/E7 - 02/01/17 13:41 CLINICAL INFORMATION: NRG LMP: NRG PREV. PAP: NORMAL NRG PREV. BX: NONE NRG SOURCE: [employer] NRG STATEMENT OF ADEQUACY: NRG INTERPRETATION/RESULT: NRG SMELTER LINER: NRG HPV mRNA E6/E7, SUREPATH VIAL Not Detected NOT DETECTED CBC - 02/11/17 15:34 WHITE BLOOD CELL COUNT 13.7 Thousand/uL 3.8-10.8 RED BLOOD CELL COUNT 5.11 Million/uL 3.80-5.10 HEMOGLOBIN 15.8 g/dL 11.7-15.5 HEMATOCRIT 45.2 % 35.0-45.0 MCV 88.5 fL 80.0-100.0 MCH 30.9 pg 27.0-33.0 MCHC 35.0 g/dL 32.0-36.0 RDW 12.5 % 11.0-15.0 PLATELET COUNT 286 Thousand/uL 140-400 MPV 10.2 fL 7.5-12.5 ABSOLUTE NEUTROPHILS 7357 cells/uL 6799-9878 ABSOLUTE LYMPHOCYTES 5138 cells/uL 850-3900 ABSOLUTE MONOCYTES 1028 cells/uL 200-950 ABSOLUTE EOSINOPHILS 96 cells/uL 15-500 ABSOLUTE BASOPHILS 82 cells/uL 0-200 NEUTROPHILS 53.7 % NRG LYMPHOCYTES 37.5 % NRG MONOCYTES 7.5 % NRG EOSINOPHILS 0.7 % NRG BASOPHILS 0.6 % NRG CULTURE, URINE - 02/11/17 15:34 CULTURE, URINE, ROUTINE SEE NOTE NRG Urinalysis - 07/11/17 03:42 Icotest N/A Negative Urine Volume Urine Volume Sufficient (10mL) Urine Yeast No Yeast present Urine-Appearance Cloudy Clear Urine-Bacteria 4+ Urine-Bilirubin Negative Negative Urine-Blood Trace-lysed Negative Urine-Color Yellow Colorless-Lt. Yellow Urine-Epithelial Cells 0-5/HPF Urine-Glucose Negative Negative Urine-Ketones Negative Negative Urine-Leukocytes Negative Negative Urine-Nitrite Positive Negative Urine-Other Culture to follow Urine-pH 5.5 5-8.5 Urine-Protein Negative Negative Urine-RBC 0-2/HPF Urine-Specific [place] 1.020 1.000-1.030 Urine-WBC 10-20/HPF Urobilinogen 0.2 0.2-1.0 Urine Culture - 07/11/17 04:38 PRELIM CULTURE RESULTS >100,000 Gram Negative Lactose Stoner Hand [place] / ID to Follow MEDIA PLATED Setup at 04:40 on 07/11/2017 CULTURE SOURCE void Sensi - 07/11/17 04:38 FINAL CULTURE RESULTS Escherichia coli (Isolate 1) Ampicillin/Sulbactam 16/8 Ampicillin >16 Amoxicillin/K Clavulanate <=8/4 Ceftriaxone <=8 Ciprofloxacin <=1 Nitrofurantoin <=32 Gentamicin <=4 Levofloxacin <=2 Trimethoprim/ Sulfamethoxazole >2/38 Tetracycline >8 Amikacin <=16 Aztreonam <=8 Ceftazidime <=1 Ceftazidime/K Clavulanate <=0.25 Cephalothin 16 Cefotaxime <=2 Cefotaxime/K Clavulanate <=0.5 Cefoxitin <=8 Cefazolin <=8 Cefepime <=8 Cefuroxime <=4 Ertapenem <=1 Imipenem <=4 Meropenem <=4 Piperacillin/Tazobactam <=16 Piperacillin >64 Tigecycline <=2 Tobramycin <=4 Urine Culture - 07/11/17 04:38 PRELIM CULTURE RESULTS >100,000 Gram Negative Lactose Stoner Hand [place] / ID to Follow MEDIA PLATED Setup at 04:40 on 07/11/2017 CULTURE SOURCE void Encounters ACCT No. Visit Date/Time Discharge Status Pt. Type Provider Facility Loc./Unit Complaint [id number] 06/29/2014 14:51:00 06/29/2014 23:59:59 CLS Outpatient SHIVANI DIGGS DO [id number] 04/02/2014 16:47:00 04/02/2014 23:59:59 CLS Outpatient SHIVANI DIGGS DO [id number] 03/19/2014 17:43:00 03/19/2014 23:59:59 CLS Outpatient SHIVANI DIGGS DO [id number] 03/05/2014 11:27:00 03/05/2014 23:59:59 CLS Outpatient SHIVANI DIGGS DO [id number] 02/26/2014 10:49:00 02/26/2014 23:59:59 CLS Outpatient SHIVANI DIGGS DO [id number] 09/26/2013 14:14:00 09/26/2013 23:59:59 CLS Outpatient SHIVANI DIGGS DO [id number] 09/04/2013 15:19:00 09/04/2013 23:59:59 CLS Outpatient LUIS THRASHERKATERINA [id number] 04/27/2013 16:20:00 04/27/2013 23:59:59 CLS Outpatient LUIS SHARPKATERINA Julian [id number] 02/13/2013 16:38:00 02/13/2013 23:59:59 CLS Outpatient LUIS SHARPKATERINA Julian [id number] 01/16/2013 16:32:00 01/16/2013 23:59:59 CLS Outpatient SHIVANI DIGGS DO [place] [id number] 01/02/2013 10:59:00 01/02/2013 23:59:59 CLS Outpatient SHIVANI DIGGS DO [id number] 07/12/2012 10:20:00 07/12/2012 23:59:59 CLS Outpatient [id number] 06/27/2012 16:36:00 06/27/2012 23:59:59 CLS Outpatient LUIS SHARPKATERNIA Julian [id number] 06/10/2012 13:34:00 06/10/2012 23:59:59 CLS Outpatient LUIS SHARPKATERINA Julian [id number] 02/05/2012 15:48:00 02/05/2012 23:59:59 CLS Outpatient [id number] 10/25/2012 10:39:00 Document Registration [id number] 09/07/2012 16:28:00 Document Registration [id number] 08/09/2012 16:13:00 Document Registration [id number] 07/25/2012 15:59:00 Document Registration [id number] 04/11/2018 15:00:00 04/11/2018 23:59:59 CLS Outpatient LUIS SHARPKATERINA Julian [facility] [id number] 02/11/2017 14:20:00 Document Registration [id number] 02/01/2017 11:00:00 Document Registration [id number] 07/11/2017 03:34:00 Document Registration [id number] 07/11/2017 03:34:00 07/11/2017 05:04:00 DIS Outpatient Margie Leblanc [facility] ER [id number] 07/11/2017 04:33:20 Document Registration [id number] 01/19/2018 11:06:00 01/19/2018 23:59:59 CLS Outpatient LINDA JARRELL MD [facility] RT DDU [id number] 02/17/2017 09:43:00 02/17/2017 23:59:59 CLS Outpatient JONOPANDA SUAZO DO [facility] RAD R31.9 HEMATURIA [id number] 02/04/2017 12:47:00 02/04/2017 23:59:59 CLS Outpatient PANDA CARTAGENA DO [facility] RAD WELL WOMAN EXAM [id number] 01/22/2016 11:33:00 01/22/2016 23:59:59 CLS Outpatient KATERINA SMITH [facility] RAD LUNG NODULE [id number] 07/16/2015 11:59:00 07/16/2015 23:59:59 CLS Outpatient KATERINA SMITH [facility] RAD ENLARGING LUNG NODULES [id number] 07/01/2015 17:30:00 07/03/2015 12:23:00 DIS Inpatient LAZARO MEJIAS MD [facility] 4TH INTRACTABLE N/V ABD PAIN PULMONARY NODULE [id number] 01/04/2013 12:22:00 01/04/2013 23:59:59 CLS Outpatient WEN MASSEY MD [facility] RT PULMONARY NODULE [id number] 07/01/2015 12:01:00 Document Registration [id number] 06/28/2012 10:06:00 Document Registration [id number] 06/20/2012 23:10:00 Document Registration [id number] 06/16/2012 11:12:00 Document Registration [id number] 12/14/2010 18:14:00 Document Registration [id number] 05/26/2010 09:59:00 Document Registration [id number] 05/25/2010 10:57:00 Document Registration
[2018-04-15 01:46] LABS: ALANINE AMINOTRANSFERASE 11 U/L (0-55); ALBUMIN 4.2 GM/DL (3.2-4.5); ALKALINE PHOSPHATASE 109 U/L (40-136); BILIRUBIN,TOTAL 0.4 MG/DL (0.1-1.0); BUN/CREATININE RATIO 7; CALCIUM 9.8 MG/DL (8.5-10.1); CARBON DIOXIDE 23 MMOL/L (21-32); CHLORIDE 106 MMOL/L (98-107); CREATININE SERUM 0.82 MG/DL (0.60-1.30); GFR ESTIMATED > 60; GLUCOSE 108 MG/DL (70-105); POTASSIUM 3.2 MMOL/L (3.6-5.0); SODIUM 140 MMOL/L (135-145); TOTAL PROTEIN 6.5 GM/DL (6.4-8.2)
[2018-04-15] MEDS ORDERED: LORazepam INJ 2 MG/ML (ATIVAN) VIAL IVP ONE (02:00)
[2018-04-15 02:25] LABS: AMPHETAMINE SCREEN, URINE NEGATIVE (NEGATIVE); BARBITURATE SCREEN URINE NEGATIVE (NEGATIVE); BENZODIAZEPINES SCREEN URINE NEGATIVE (NEGATIVE); CANNABINOID SCREEN, URINE NEGATIVE (NEGATIVE); COCAINE SCREEN URINE NEGATIVE (NEGATIVE); METHADONE STAT NEGATIVE (NEGATIVE); METHAMPHETAMINE SCREEN URINE S NEGATIVE (NEGATIVE); OPIATE SCREEN URINE NEGATIVE (NEGATIVE); OXYCODONE STAT NEGATIVE (NEGATIVE); PROPOXYPHENE STAT NEGATIVE (NEGATIVE); TRICYCLIC ANTIDEPRESSANTS SCRE POSITIVE (NEGATIVE)
--- NOTE | 2018-04-15 03:22 | ED General ---
General Chief Complaint: Respiratory Problems Stated Complaint: CAN'T SWALLOW,ANXIETY Nursing Triage Note: PT TO ROOM #3 [facility] CART FROM HOME WITH C/O THROAT DISCOMFORT. PT REPORTS APPROX 1800 ON 04/14/17 SHE ATE A SANDWICH AND AFTER SHE BEGAN TO FEEL THOUGH SHE CAN NOT SWALLOW. INITIAL O2 SAT 98% RA. LUNG SOUNDS CTA. PT NOTED TO BE ANXIOUS WITH INCREASED RESPIRATIONS. PT STATES "I KNOW SOMETHING IS IN MY THROAT!" A&OX4. Nursing Sepsis Screen: No Definite Risk Allergies and Home Medications Allergies Coded Allergies: aspirin (Unverified Allergy, Unknown, 07/01/15) Penicillins (Unverified Adverse Reaction, Mild, N/V, 07/02/15) Home Medications Acetaminophen 500 Mg Tablet, 1,000 MG PO Q6H PRN, (Reported) TAKES 2 (500 MG) TABLETS Albuterol Sulfate 8.5 Gm Hfa.aer.ad, 2 PUFF IH Q4H PRN for SO, (Reported) Cetirizine Hcl 10 Mg Capsule, 10 MG PO DAILY, (Reported) Hydroxyzine HCl 25 Mg Tablet, 25-50 MG PO Q6H Prescribed by: SHANIA CORDOVA on 04/15/18 0323 Lisinopril 10 Mg Tab, 10 MG PO DAILY, (Reported) Omeprazole 40 Mg Capsule.dr, 40 MG PO DAILY, (Reported) Venlafaxine HCl 75 Mg Tab, 75 MG PO BID, (Reported) LAST FILLED 05/28/15 #60 Past Hihrgrs-Ixxmbh-Yhglef Hx Patient Social History Alcohol Use: Denies Use Recreational Drug Use: No Smoking Status: Former Smoker Type Used: Cigarettes Former Smoker, Quit: Jan 03, 2018 2nd Hand Smoke Exposure: Yes Recent Foreign Travel: No Contact w/Someone Who Travel: No Recent Infectious Disease Expo: No Recent Hopitalizations: No Physical Abuse: No Sexual Abuse: No Immunizations Up To Date Date of Pneumonia Vaccine: Jun 21, 2012 Seasonal Allergies Seasonal Allergies: No Past Medical History Surgeries: Yes (gb 1979) Respiratory: Yes COPD, Emphysema Currently Using CPAP: No Cardiac: No Neurological: No Reproductive Disorders: No Sexually Transmitted Disease: No HIV/AIDS: No Gastrointestinal: Yes (acid reflux) Musculoskeletal: No Endocrine: No Cancer: No Psychosocial: No Integumentary: Yes (rash x 2 wks) Blood Disorders: No Family Medical History No Pertinent Family Hx Physical Exam Vital Signs Vital Signs - First Documented 04/15/18 01:12 Temp 97.3 Pulse 110 Resp 24 B/P (MAP) 133/80 (97) Pulse Ox 98 Capillary Refill : Less Than 3 Seconds Height, Weight, BMI Height: 5'7.00" Weight: 290lbs. 0.0oz. 131.317436bp; 44.79 BMI Method:Stated Progress/Results/Core Measures Suspected Sepsis Recent Fever Within 48 Hours: No Infection Criteria Present: None New/Unexplained Altered Menta: No Sepsis Screen: No Definite Risk SIRS Temperature:97.3 Pulse: 110 Respiratory Rate: 24 Laboratory Tests 04/15/18 01:23: White Blood Count 7.6 Blood Pressure 133 /80 Mean: 97 Laboratory Tests 04/15/18 01:23: Creatinine 0.82, Platelet Count 186, Total Bilirubin 0.4 Results/Orders Lab Results Laboratory Tests Test 04/15/18 01:23 04/15/18 01:49 Range/Units White Blood Count 7.6 4.3-11.0 10^3/uL Red Blood Count 4.67 4.35-5.85 10^6/uL Hemoglobin 13.2 11.5-16.0 G/DL Hematocrit 39 35-52 % Mean Corpuscular Volume 84 80-99 FL Mean Corpuscular Hemoglobin 28 25-34 PG Mean Corpuscular Hemoglobin Concent 34 32-36 G/DL Red Cell Distribution Width 12.2 10.0-14.5 % Platelet Count 186 130-400 10^3/uL Mean Platelet Volume 9.4 7.4-10.4 FL Neutrophils (%) (Auto) 45 42-75 % Lymphocytes (%) (Auto) 43 12-44 % Monocytes (%) (Auto) 10 0-12 % Eosinophils (%) (Auto) 2 0-10 % Basophils (%) (Auto) 0 0-10 % Neutrophils # (Auto) 3.4 1.8-7.8 X 10^3 Lymphocytes # (Auto) 3.2 1.0-4.0 X 10^3 Monocytes # (Auto) 0.8 0.0-1.0 X 10^3 Eosinophils # (Auto) 0.1 0.0-0.3 10^3/uL Basophils # (Auto) 0.0 0.0-0.1 10^3/uL Sodium Level 140 135-145 MMOL/L Potassium Level 3.2 L 3.6-5.0 MMOL/L Chloride Level 106 98-107 MMOL/L Carbon Dioxide Level 23 21-32 MMOL/L Anion Gap 11 5-14 MMOL/L Blood Urea Nitrogen 6 L 7-18 MG/DL Creatinine 0.82 0.60-1.30 MG/DL Estimat Glomerular Filtration Rate > 60 BUN/Creatinine Ratio 7 Glucose Level 108 H 70-105 MG/DL Calcium Level 9.8 8.5-10.1 MG/DL Corrected Calcium 9.6 8.5-10.1 MG/DL Total Bilirubin 0.4 0.1-1.0 MG/DL Aspartate Amino Transf (AST/SGOT) 13 5-34 U/L Alanine Aminotransferase (ALT/SGPT) 11 0-55 U/L Alkaline Phosphatase 109 40-136 U/L Total Protein 6.5 6.4-8.2 GM/DL Albumin 4.2 3.2-4.5 GM/DL Serum Alcohol < 10 <10 MG/DL Urine Opiates Screen NEGATIVE NEGATIVE Urine Oxycodone Screen NEGATIVE NEGATIVE Urine Methadone Screen NEGATIVE NEGATIVE Urine Propoxyphene Screen NEGATIVE NEGATIVE Urine Barbiturates Screen NEGATIVE NEGATIVE Ur Tricyclic Antidepressants Screen POSITIVE H NEGATIVE Urine Phencyclidine Screen NEGATIVE NEGATIVE Urine Amphetamines Screen NEGATIVE NEGATIVE Urine Methamphetamines Screen NEGATIVE NEGATIVE Urine Benzodiazepines Screen NEGATIVE NEGATIVE Urine Cocaine Screen NEGATIVE NEGATIVE Urine Cannabinoids Screen NEGATIVE NEGATIVE My Orders Orders - TASHA,SHANIA K DO Saline Lock/Iv-Start (04/15/18 01:18) Monitor-Rhythm Ecg Trace Only (04/15/18 01:18) Alcohol (04/15/18 01:18) Cbc With Automated Diff (04/15/18 01:18) Comprehensive Metabolic Panel (04/15/18 01:18) Drug Screen Stat (Urine) (04/15/18 01:18) Chest 1 View, Ap/Pa Only (04/15/18 01:18) Ct Chest Wo (04/15/18 01:18) Ct Neck (Soft Tissue) Wo (04/15/18 01:18) Diphenhydramine Injection (Benadryl Inje (04/15/18 01:18) Lorazepam Injection (Ativan Injection) (04/15/18 02:00) Antacid Suspension (Mylanta Suspension (04/15/18 03:30) Lidocaine 2% Viscous 15 Ml (Xylocaine Vi (04/15/18 03:30) Medications Given in ED Current Medications Medications Dose Ordered Sig/Brian Route Start Time Stop Time Status Last Admin Dose Admin Al Hydrox/Mg Hydrox/Simethicone 30 ml ONCE ONCE PO 04/15/18 03:30 04/15/18 03:31 DC 04/15/18 03:32 30 ML Lidocaine HCl 15 ml ONCE ONCE PO 04/15/18 03:30 04/15/18 03:31 DC 04/15/18 03:32 15 ML Lorazepam 2 mg ONCE ONCE IVP 04/15/18 02:00 04/15/18 02:01 DC 04/15/18 02:07 2 MG Vital Signs/I&O 04/15/18 01:12 Temp 97.3 Pulse 110 Resp 24 B/P (MAP) 133/80 (97) Pulse Ox 98 Capillary Refill : Less Than 3 Seconds Blood Pressure Mean: 97 Progress Note : Progress Note PT GIVEN BENADRYL AND ATIVAN AND PT IS CALMER AND SYMPTOMS HAVE IMPROVED GIVEN GI COCKTAIL AND SYMPTOMS FURTHER IMPROVED PT DRANK 12 OZ WATER AND ICE CHIPS WITHOUT DIFFICULTY. STATES SHE FEELS BETTER AT DISMISSAL Departure Impression Primary Impression: ANXIETY Additional Impression: SUBJECTIVE DYSPHAGIA Disposition: 01 HOME, SELF-CARE Condition: Improved Departure-Patient Inst. Referrals: SHIVANI DIGGS DO (PCP) Primary Care Physician KATERINA SMITH (Family) Primary Care Physician Patient Instructions: Anxiety, Adult (DC), Dysphagia (DC) Add. Discharge Instructions: SOFT FOODS LOTS OF CLEAR LIQUIDS TAKE YOUR REGULAR MEDICATIONS PRESCRIBED FOLLOW UP WITH YOUR DR IF SYMPTOMS CONTINUE All discharge instructions reviewed with patient and/or family. Voiced understanding. Scripts Hydroxyzine HCl (Hydroxyzine HCl) 25 Mg Tablet 25-50 MG PO Q6H for Anxiety, #20 TAB Prov: SHANIA CORDOVA DO 04/15/18 SHANIA CORDOVA DO Apr 15, 2018 03:22
[2018-04-15] MEDS ORDERED: HYDR-700 PO (03:23)
[2018-04-15] MEDS ORDERED: LIDOCAINE 2% VISCOUS 15 ML UDC PO ONE (03:30)
[2018-04-15] MEDS ORDERED: ANTACID SUSP 30 ML UDC (MYLANTA) PO ONE (03:30)
[2018-04-15 04:18] VITALS: BP 126/91
--- NOTE | 2018-04-15 07:05 | Diagnostic Imaging Report ---
Indication: Dysphagia Portable chest 2:19 AM There is a 2 cm pulmonary nodule in the right lower lung that is increased in size from 13 mm on the study done on 06/20/2012. There are no infiltrates, effusions or pneumothoraces. Impression: Enlarging pulmonary nodule right lower lung. This is increased in size over 5 years. It could be benign granuloma, neoplasm cannot be excluded. Dictated by: Dictated on workstation # [id number]
--- NOTE | 2018-04-15 07:09 | Diagnostic Imaging Report ---
PROCEDURE: CT chest without contrast. TECHNIQUE: Multiple contiguous axial images were obtained through the chest without the use of intravenous contrast. INDICATION: Dysphagia. There are emphysematous changes in the lungs. There is a 2 cm smooth margin mass in the right lower lung. There are no infiltrates, effusions or pneumothoraces. There is some coronary calcific atherosclerosis. There are no pathologically enlarged hilar or mediastinal lymph nodes. IMPRESSION: 2 cm nodule right lower lung. This is increased in size from a measurement of 14 mm on the previous CT of 02/17/2017, raising concern for slowly growing neoplasm. I agree with preliminary interpretation. Dictated by: Dictated on workstation # [id number]
--- NOTE | 2018-04-15 07:38 | Diagnostic Imaging Report ---
PROCEDURE: CT neck soft tissue without contrast. TECHNIQUE: Multiple contiguous axial images were obtained through the neck without the use of intravenous contrast. INDICATION: Dysphagia. Epiglottis is normal. There is no prevertebral soft tissue swelling. There is no pharyngeal mucosal thickening or asymmetry. Parapharyngeal fat planes are well preserved. Neurovascular bundles are unremarkable. Submandibular and parotid glands appear normal. There is a 2.5 cm mass in the inferior pole of the left lobe of the thyroid. IMPRESSION: Left thyroid mass. Soft tissue neck otherwise unremarkable. I agree with preliminary interpretation. Dictated by: Dictated on workstation # [id number]
== END 2018-04-15 04:18 | disposition home or self-care (01) ==
LOC: EDUNIT# 01:09 → ER 01:11
DX: F41.9 Anxiety disorder, unspecified (principal); R13.10 Dysphagia, unspecified; J43.9 Emphysema, unspecified; K21.9 Gastro-esophageal reflux disease without esophagitis; Z88.6 Allergy status to analgesic agent; Z88.0 Allergy status to penicillin; Z79.51 Long term (current) use of inhaled steroids; Z99.81 Dependence on supplemental oxygen; Z87.891 Personal history of nicotine dependence
CPT/HCPCS: 36415; 70490; 71045; 71250; 80053; 80306; 80320; 85025; 93041; 96374; 96375

== ENCOUNTER 2018-10-08 13:14 | Emergency (ER) | payer MEDICARE, MEDICAID ==
[~2018-10-08] VITALS: Ht 170.2 cm; Wt 132.0 kg
[~2018-10-08 13:14] MED LIST changes: +HYDR-700 PO
--- OUTSIDE RECORDS SUMMARY | 2018-10-08 13:21 | XMS REPORT ---
Author Author Migration, Doctor Organization [facility] Address Unknown Phone Unavailable Care Team Providers Care Undercollar Maker Name Role Phone Migration, Doctor Unavailable Unavailable PROBLEMS Type Condition ICD9-CM Code SLQ94-UK Code Onset Dates Condition Status SNOMED Code Problem Female stress incontinence 625.6 Active 13805040 Problem Chronic rhinitis J31.0 Active 27248936 Problem Nondependent tobacco use disorder 305.1 Active 507079144 Problem Chronic airway obstruction, not elsewhere classified J44.9 Active 82315299 Problem Essential hypertension I10 Active 68436746 Problem Overactive bladder N32.81 Active 446428908 Problem Lung nodule R91.1 Active 011455447 Problem Kidney stone N20.0 Active 26594199 Problem Hereditary and idiopathic neuropathy, 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 Active 81707103 Problem Sciatica of left side M54.32 Active 40151811 Problem Bipolar II disorder F31.81 Active 42651390 Problem Acute exacerbation of chronic obstructive pulmonary disease (COPD) J44.1 Active 826153238 Problem Chronic bronchitis, unspecified chronic bronchitis type J42 Active 53783140 Problem CAP (community acquired pneumonia) J18.9 Active 060497983 Problem Back pain with left-sided radiculopathy M54.10 Active 662651726 Problem PTSD (post-traumatic stress disorder) F43.10 Active 66061162 Problem 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 [id number] [id number] August, Morbid obesity E66.01 ; Chronic airway obstruction, not elsewhere classified J44.9 ; Sciatica of left side M54.32 ; Back pain with left-sided radiculopathy M54.10 ; Essential hypertension I10 and Chronic rhinitis J31.0 [facility] [id number], [place] [id number] August, [facility] [address]00565100[place], [place] [id number] August, [place] [address]005[address], [place] [address] August, Bipolar II disorder F31.81 [facility] [address] [id number] [id number] Jul, Morbid obesity E66.01 ; Chronic bronchitis, unspecified chronic bronchitis type J42 ; Bipolar II disorder F31.81 ; Chronic rhinitis J31.0 and PTSD (post- traumatic stress disorder) F43.10 [place] [address]00565100[place], [place] [address] Jul, Bipolar II disorder F31.81 [facility] [address]65100[place], [place] [address] Jun, Morbid obesity E66.01 ; Chronic rhinitis J31.0 ; Essential hypertension I10 ; Chronic airway obstruction, not elsewhere classified J44.9 ; Acute cystitis without hematuria N30.00 and UTI (lower urinary tract infection) N39.0 [place] [address]00565100[place], [place] [address] Jun, Bipolar II disorder F31.81 ; 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 and PTSD (post-traumatic stress disorder) F43.10 [facility] [id number] [place] [id number] Jun, [facility] [id number] [id number] Jun, Hereditary and idiopathic neuropathy, 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 [facility] [address] [id number][place] [id number] Jun, [place] [address]00565100[place], [place] [address] May, Bipolar II disorder F31.[address] [place] [address] [id number] May, BMI 45.0-49.9, adult Z68.42 ; Chronic rhinitis J31.0 ; Chronic airway obstruction, not elsewhere classified J44.9 and Hereditary and idiopathic neuropathy, 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 [place] [address] [id number] 15 May, [address] [place] [address] [id number] May, [place] [address] [address] [id number] [place] [address] May, Bipolar II disorder F31.81 and PTSD (post-traumatic stress disorder) F43.10 [place] [address] [place] [address] May, Bipolar II disorder F31.81 ; 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 and PTSD (post-traumatic stress disorder) F43.[address] [place] [address] [id number] Apr, BMI 45.0-49.9, adult Z68.42 ; Bipolar II disorder F31.81 and Chronic bronchitis, unspecified chronic bronchitis type J42 [address] [id number][place] [id number] Apr, Dysthymia F34.[id number] [place] [address] [id number] Apr, [address] [place] [address] [id number] Apr, BMI 45.0-49.9, adult Z68.42 ; Bipolar II disorder F31.81 and Acute cystitis without hematuria N30.00 [place] [address] [place] [address] Apr, Bipolar II disorder F31.81 ; 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 [id number] [place] [address] [id number] Mar, Dysthymia F34.1 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 and PTSD (post-traumatic stress disorder) F43.10 [facility] [id number] [place] [address] [id number] Feb, Dysthymia F34.1 and BMI 45.0-49.9, adult Z68.42 [facility] [id number] [place] [address] [id number] Feb, Dysthymia F34.1 ; Chronic rhinitis J31.0 ; Strain of lumbar region, subsequent encounter S39.012D and BMI 45.0-49.9, adult Z68.42 [facility] [id number] [place] [address] [id number] Jan, Encounter for immunization Z23 [facility] [id number] [place] [address] [id number] Jan, Dysthymia F34.1 [facility] [address] [place] [address] Jan, PTSD (post-traumatic stress disorder) F43.10 and 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 [id number] [id number] Jan, BMI 45.0-49.9, adult Z68.42 and Chronic airway obstruction, not elsewhere classified J44.[address] [facility] [id number], [place] [id number] Dec, PTSD (post-traumatic stress disorder) F43.10 ; Chronic airway obstruction, not elsewhere classified J44.9 ; Dysthymia F34.[address] [facility] [id number], [place] [id number] Nov, Dysthymia F34.1 [facility] [address]00565100[place], [place] [address] Nov, PTSD (post-traumatic stress disorder) F43.10 and 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 [place] [address] [id number] Nov, BMI 45.0-49.9, adult Z68.42 ; Strain of lumbar region, subsequent encounter S39.012D ; PTSD (post-traumatic stress disorder) F43.10 and Dysthymia F34.1 [address]00565100[place], [place] [id number] Oct, [address]00565100[place], [place] [id number] Oct, Dysthymia F34.1 and PTSD (post-traumatic stress disorder) F43.10 [facility] [place] [id number] [address] Oct, BMI 45.0-49.9, adult Z68.42 ; Dysthymia F34.1 ; PTSD (post-traumatic stress disorder) F43.10 and Infective urethritis N34.[address] [facility] [address] [id number], [place] [id number] Oct, Dysthymia F34.1 and PTSD (post-traumatic stress disorder) F43.[address] [facility] [address] [id number], [place] [id number] Sep, Dysthymia F34.1 and PTSD (post-traumatic stress disorder) F43.10 [place] [id number] [place] [address] [id number] Sep, BMI 45.0-49.9, adult Z68.42 and Mood disorder F39 [place] [id number] [place] [address] [id number] Sep, [facility] [address] [place] [address] [id number] Sep, Dysth[address] F34.[address] [facility] [place] [id number] [place] [address] [id number] Sep, Mood disorder F39 [facility] [id number] [place] [address] [id number] August, Dysthymia F34.1 [place] [id number] [place] [address] [id number] August, Dysthymia F34.1 ; Chronic airway obstruction, not elsewhere classified J44.9 ; Back pain with left-sided radiculopathy M54.10 and BMI 45.0-49.9, adult Z68.[address] [place] [address] [id number] Jul, Urinary tract infection without hematuria, site unspecified N39.0 and Fatigue, unspecified type R53.83 [place] [address] [place] [address] [id number] Jul, Chronic airway obstruction, not elsewhere classified J44.9 [place] [id number] [place] [address] [id number] Jul, BMI 45.0-49.9, adult Z68.42 and Infective urethritis N34.[address] [place] [address] [id number] Jul, [place] [id number] [place] [address] [id number] Jun, Back pain with left-sided radiculopathy M54.10 [facility] [id number], [place] [id number] May, Chronic airway obstruction, not elsewhere classified J44.9 and Encounter for immunization Z23 [facility] [id number], [place] [id number] Apr, BMI 45.0-49.9, adult Z68.42 ; Back pain with left-sided radiculopathy M54.10 ; Chronic airway obstruction, not elsewhere classified J44.[address] [facility] [id number] [place] [address] [id number] Mar, Sciatica of left side M54.32 ; Back pain with left-sided radiculopathy M54.10 and Hereditary and idiopathic neuropathy, 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 [facility] [id number], [place] [id number] Mar, Flank pain R10.9 ; Urinary urgency R39.15 and Chronic airway obstruction, not elsewhere classified J44.9 [facility] [id number], [place] [id number] Mar, Dysthymia F34.[address] [facility] [address] [id number], [place] [id number] Feb, [facility] [address] [place] [address] [id number], [place] [address] Feb, [facility] [id number], [place] [id number] Feb, Hematuria, unspecified type R31.9 ; Kidney stone N20.0 and BMI 40.0-44.9, adult Z68.41 [facility] [address] [place], [place] 546[place]O30851026OFVEN[place], [place] [address] Feb, [facility] [id number], [place] [id number] Feb, [facility] [id number] [place] [address] [id number] Feb, [facility] [address] [place] [id number] [place] [address] [id number] Feb, Dysthymia F34.1 ; Encounter for immunization Z23 ; Acute nasopharyngitis J00 ; Chronic rhinitis J31.0 and Chronic airway obstruction, not elsewhere classified J44.9 [facility] [address] [place] [address] [id number] [place] [address] Jan, Well woman exam Z01.419 ; Left breast lump N63.20 and BMI 40.0-44.9, adult Z68.41 [facility] [address] [place] [id number] [place] [address] [id number] Jan, Muscle cramps R25.2 [facility] [address] [place] [id number] [place] [address] [id number] Dec, Dysthymia F34.1 [facility] [address] [place] [address] [id number] [place] [address] [id number] Dec, Muscle cramps R25.2 [facility] [address] [place] [address] [id number] [place] [address] [id number] Nov, Dysthymia F34.[address] [facility] [address] [place] [address] [id number] [place] [address] [id number] Oct, [facility] [address] [place] [address] [id number] [place] [address] [id number] Oct, Chronic airway obstruction, not elsewhere classified J44.9 ; Moderate single current episode of major depressive disorder F32.1 ; Chronic rhinitis J31.0 [address]amps R25.2 [facility] [address] [place] [id number] [place] [address] [id number] Sep, Acute nasopharyngitis J00 [facility] [address]00565100[place], [place] [address] Jun, Acute exacerbation of chronic obstructive pulmonary disease (COPD) J44.1 [facility] [address] [place] [id number] [place] [address] [id number] Jun, Acute nasopharyngitis J00 [facility] [address] [place] [id number] [place] [address] [id number] Jun, [facility] [address] [place] [address] [id number], [place] [address] Apr, [facility] [id number], [place] [id number] Mar, Acute nasopharyngitis J00 [facility] [id number] [place] [address] [id number] Mar, [facility] [id number] [place] [address] [id number] Mar, [facility] [address] [place] [id number] [place] [address] [id number] Feb, CAP (community acquired pneumonia) J18.9 and Chronic rhinitis J31.0 [facility] [address] [place] [id number] [place] [address] [id number] Feb, CAP (community acquired pneumonia) J18.9 [facility] [id number] [place] [address] [id number] Feb, CAP (community acquired pneumonia) J18.9 [facility] [address] [place] [id number] [place] [address] [id number] Feb, [facility] [id number] [place] [address] [id number] Jan, Mood disorder F39 [facility] [address]00565100[place], [place] [address] Jan, [facility] [id number] [place] [address] [id number] Jan, Lung nodule R91.1 [facility] [id number], [place] 644164448 Jan, Lung nodule R91.1 [facility] [id number] [place] [address] [id number] Jan, Lung nodule R91.1 [facility] [address] [place] [address] [id number] [place] [address] [id number] Jan, Lung nodule R91.1 [facility] [id number] [place] [address] [id number] Jan, [facility] [address] [place] [address] [id number] [place] [address] [id number] Nov, Overactive bladder N32.81 ; Chronic airway obstruction, not elsewhere classified J44.9 and Essential hypertension I10 [address] [id number] Oct, [address] [id number] Oct, Acute non-recurrent sinusitis, unspecified location J01.90 ; Cough R05 and Tobacco dependence F17.[address] [id number] Sep, Overactive bladder N32.81 and Chronic airway obstruction, not elsewhere classified J44.[address] [id number] August, Chronic airway obstruction, not elsewhere classified J44.9 ; Mood disorder F39 and Urinary frequency R35.[address] [id number] August, [address] [id number] Jul, Lung nodule R91.1 ; Chronic airway obstruction, not elsewhere classified J44.9 and Urinary tract infection without hematuria, site unspecified N39.[address] [id number] Jul, Lung nodule R91.[address] [id number] Jul, [address] [id number] Jul, Diarrhea R19.7 and Lung nodule R91.[address] [id number] Apr, Upper respiratory tract infection, unspecified type J06.9 and COPD exacerbation J44.[address] [id number] Mar, [address] [id number] Feb, Mood disorder F39 and Essential hypertension I10 [address] [id number], [place] [id number] Jan, Essential hypertension I10 ; Mood disorder F39 ; Chronic airway obstruction, not elsewhere classified J44.9 and Chronic rhinitis J31.0 [facility] [id number], [place] [id number] Jan, [facility] [address] [id number], [place] [id number] Jan, [facility] [place] [address] [facility] [id number], [place] [id number] Jan, [facility] [id number], [place] [id number] Jan, [facility] [id number], [place] [id number] Dec, [facility] [address] [id number], [place] [id number] Dec, [facility] [id number], [place] [id number] Sep, Rhinitis 472.0 [facility] [id number] [place] [address] Jul, [facility] [id number] [place] [address] Jul, [facility] [id number], [place] [id number] Jun, [facility] [id number] [place] [address] Jun, [facility] [address] [place] [address] Jun, [facility] [id number], [place] [id number] May, [facility] [id number] [place] [address] May, [facility] [id number], [place] [id number] Apr, [facility] [place] [facility] [address] [id number] [place] [address] Apr, [facility] [address] [id number] [place] [id number] Mar, [facility] [place] [facility] [address] [facility] [id number] [place] [address] Mar, [facility] [address] [id number] [place] [id number] Mar, [facility] [place] [facility] [address] [facility] [id number] [place] [address] Mar, [facility] [address] [id number] [place] [id number] Mar, [facility] [place] [facility] [address]00565100[place], [place] [address] Mar, [facility] [address] [facility] [id number] [place] [id number] Mar, [facility] [place] [facility] [address] [facility] [id number], [place] [address] Mar, [facility] [address] [facility] [id number], [place] [id number] Feb, [facility] [place] [facility] [address] [facility] [id number], [place] [address] Feb, [facility] [address] [facility] [id number], [place] [id number] Feb, [facility] [place] [facility] [address] [facility] [id number], [place] [address] Feb, [facility] [address] [facility] [id number] [place] [id number] Feb, [facility] [place] [facility] [address] [facility] [id number], [place] [address] Feb, [facility] [address] [facility] [id number], [place] [id number] Jan, [facility] [place] [facility] [address] [facility] [id number], [place] [address] Jan, [facility] [address] [id number] [place] [id number] Jan, [facility] [place] [facility] [address] [id number] [place] [address] Jan, [facility] [address] [id number] [place] [id number] Sep, [facility] [place] [facility] [address] [facility] [id number] [place] [address] Sep, [facility] [place] [facility] [address] [id number] [place] [address] Sep, [facility] [address] [id number] [place] [id number] Sep, [facility] [place] [facility] [address] [facility] [id number] [place] [address] Sep, [facility] [place] [facility] [address] [facility] [id number] [place] [address] Sep, [facility] [address] [id number], [place] [id number] Jul, [facility] [place] [facility] [address] [facility] [id number], [place] [address] Jul, [facility] [address] [facility] [id number][place] [id number] Jun, [facility] [place] [facility] [address] [facility] [id number], [place] [address] Jun, [facility] [address] [id number][place] [id number] Jun, [facility] [place] [facility] [address] [id number], [place] [address] Jun, [facility] [address] [id number][place] [id number] Apr, [facility] [place] [facility] [address] [facility] [id number] [place] [address] Apr, [facility] [address] [id number][place] [id number] Mar, [facility] [address] [id number], [place] [address] Mar, [facility] [address] [id number], [place] [id number] Mar, [facility] [place] [facility] [address] [facility] [id number], [place] [address] Mar, [facility] [address] [id number], [place] [id number] Feb, [facility] [place] [facility] [address] [facility] [id number], [place] [address] Feb, [facility] [address] [id number], [place] [id number] Jan, [facility] [place] [facility] [id number], [place] [address] Jan, [facility] [address] [id number], [place] [id number] Dec, [facility] [address] [facility] [id number], [place] [address] Dec, [facility] [address] [id number], [place] [id number] Dec, [facility] [address] [id number][place] [id number] Dec, [facility] [address] [id number][place] [id number] Oct, [facility] [place] [facility] [address] [facility] [id number], [place] [address] Oct, [facility] [place] [facility] [address] [facility] [id number], [place] [address] Oct, [facility] [address] [id number], [place] [id number] Oct, [facility] [address] [id number], [place] [id number] Sep, [facility] [address] [id number], [place] [id number] August, [facility] [address] [id number] [place] [id number] August, [facility] [address] [id number] [place] [id number] August, [facility] [address] [id number] [place] [id number] Jul, [facility] [address] [facility] [id number], [place] [address] Jul, [facility] [address] [id number] [place] [id number] Jul, [facility] [address] [id number] [place] [id number] Jun, [facility] [address] [facility] [id number], [place] [address] Jun, [facility] [address] [id number] [place] [id number] Jun, [facility] [address] [id number] [place] [id number] Jun, [facility] [address] [id number] [place] [id number] Jun, [facility] [address] [id number] [place] [id number] Jun, [facility] [address] [id number] [place] [id number] Jun, [facility] [address] [id number] [place] [id number] Feb, [facility] [address] [facility] [id number] [address] Feb, [facility] [address] [id number] [place] [id number] Jan, [facility] [address] [id number] [place] [id number] Nov, [facility] [address] [id number] [place] [id number] Oct, [facility] [address] [id number] [place] [id number] Oct, [facility] [address] [facility] [id number] [place] [id number] Sep, [facility] [address] [facility] [id number] [place] [address] Mar, [facility] [address] [facility] [id number] [place] [address] Nov, IMMUNIZATIONS No Known Immunizations SOCIAL HISTORY Never Assessed [place] [place] VITAL SIGNS MEDICATIONS Unknown [...] for vomiting-given mag citrate for "blockage" 03/09/2016 Hospitalization History [facility]- Abhinav anxiety 04/20/2018
--- OUTSIDE RECORDS SUMMARY | 2018-10-08 13:21 | XMS REPORT ---
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 Name Role Phone KATERINA SMITH Unavailable PROBLEMS Type Condition ICD9-CM Code FAL90-ZK Code Onset Dates Condition Status SNOMED Code Problem Female stress incontinence 625.6 Active 85788035 Problem Chronic rhinitis J31.0 Active 33190693 Problem Nondependent tobacco use disorder 305.1 Active 026237682 Problem Chronic airway obstruction, not elsewhere classified J44.9 Active 77807197 Problem Essential hypertension I10 Active 07172078 Problem Overactive bladder N32.81 Active 356694753 Problem Lung nodule R91.1 Active 063642295 Problem Kidney stone N20.0 Active 61573515 Problem Hereditary and idiopathic neuropathy, 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 Active 12259973 Problem Sciatica of left side M54.32 Active 83265691 Problem Bipolar II disorder F31.81 Active 00699014 Problem Acute exacerbation of chronic obstructive pulmonary disease (COPD) J44.1 Active 787752426 Problem Chronic bronchitis, unspecified chronic bronchitis type J42 Active 94892399 Problem CAP (community acquired pneumonia) J18.9 Active 653612475 Problem Back pain with left-sided radiculopathy M54.10 Active 137933479 Problem PTSD (post-traumatic stress disorder) F43.10 Active 12545077 Problem 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 17376028 Problem Dysthymia F34.1 Active 07614499 ALLERGIES No Information ENCOUNTERS Encounter Location Date Diagnosis [facility] [address] [facility] [id number], [place] [address] Oct, [facility] [address] [facility] [id number], [place] [address] Oct, [facility] [address] [facility] [id number] [id number] Sep, Sciatica of left side M54.32 [facility] [address] [address] Sep, Bipolar II disorder F31.81 [place] [id number][place] [id number] Sep, Bipolar II disorder F31.81 [place] [address] [place] [id number] [place] [address] Sep, Bipolar II disorder F31.81 ; 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 and PTSD (post-traumatic stress disorder) F43.10 [facility] [address] [place] [address] [id number] August, Morbid obesity E66.01 ; Chronic airway obstruction, not elsewhere classified J44.9 ; Sciatica of left side M54.32 ; Back pain with left-sided radiculopathy M54.10 ; Essential hypertension I10 and Chronic rhinitis J31.0 [facility] [id number] [place] [address] [id number] August, [facility] [address]00565100[place] [id number] August, [facility] [address]00565100[place], [place] [address] August, Bipolar II disorder F31.81 [address]00565100[place] [id number] Jul, Morbid obesity E66.01 ; Chronic bronchitis, unspecified chronic bronchitis type J42 ; Bipolar II disorder F31.81 ; Chronic rhinitis J31.0 and PTSD (post- traumatic stress disorder) F43.10 [facility] [address] [place] [id number] [address] Jul, Bipolar II disorder F31.81 [place] [id number] [address] Jun, Morbid obesity E66.01 ; Chronic rhinitis J31.0 ; Essential hypertension I10 ; Chronic airway obstruction, not elsewhere classified J44.9 ; Acute cystitis without hematuria N30.00 and UTI (lower urinary tract infection) N39.0 [facility] [address]100[place], [place] [address] Jun, Bipolar II disorder F31.81 ; 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 and PTSD (post-traumatic stress disorder) F43.10 [facility] [address] [facility] [id number], [place] [id number] Jun, [facility] [address] [id number][place] [id number] Jun, Hereditary and idiopathic neuropathy, 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 [facility] [address] [facility] [id number], [place] [id number] Jun, [place] [address] [place] [address] May, Bipolar II disorder F31.81 [address] [place] [address] [id number] May, BMI 45.0-49.9, adult Z68.42 ; Chronic rhinitis J31.0 ; Chronic airway obstruction, not elsewhere classified J44.9 and Hereditary and idiopathic neuropathy, 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 [address] [place] [address] [id number] May, [address]00565100[place] [id number] May, [place] [address] [place] [address] May, Bipolar II disorder F31.81 and PTSD (post-traumatic stress disorder) F43.10 [place] [address] [place] [id number] [place] [address] May, Bipolar II disorder F31.81 ; 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 and PTSD (post-traumatic stress disorder) F43.10 [address]00565100[place] [id number] Mar, [address] [place] [address] [id number] Mar, Dysthymia F34.1 [address] [place] [address] [id number] Mar, BMI 45.0-49.9, adult Z68.42 ; Bipolar II disorder F31.81 ; Dysthymia F34.1 and Intertrigo L30.4 [place] [address] [place] [address] Mar, Bipolar II disorder F31.81 ; 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 and PTSD (post-traumatic stress disorder) F43.10 [address] [place] [address] [id number] Feb, Dysthymia F34.1 and BMI 45.0-49.9, adult Z68.42 [address] [place] [address] [id number] Feb, Dysthymia F34.1 ; Chronic rhinitis J31.0 ; Strain of lumbar region, subsequent encounter S39.012D and BMI 45.0-49.9, adult Z68.42 [place] [id number] [place] [address] [id number] Jan, Encounter for immunization Z23 [facility] [address] [place] [id number] [place] [address] [id number] Jan, Dysthymia F34.1 [place] [address] [address] Jan, PTSD (post-traumatic stress disorder) F43.10 and 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 [id number] Jan, BMI 45.0-49.9, adult Z68.42 and PTSD (post-traumatic stress disorder) F43.10 [place] [address] [place] [address] [id number] Jan, BMI 45.0-49.9, adult Z68.42 and Chronic airway obstruction, not elsewhere classified J44.9 [place] [address] [place] [address] [id number] Dec, PTSD (post-traumatic stress disorder) F43.10 ; Chronic airway obstruction, not elsewhere classified J44.9 ; Dysthymia F34.1 and Thrush B37.0 [place] [address] [place] [address] [id number] Nov, Dysthymia F34.1 [place] [address] [place] [id number] [place] [address] Nov, PTSD (post-traumatic stress disorder) F43.10 and 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 [id number] Nov, BMI 45.0-49.9, adult Z68.42 ; Strain of lumbar region, subsequent encounter S39.012D ; PTSD (post-traumatic stress disorder) F43.10 and Dysthymia F34.[address] [place] [id number] Oct, [facility] [id number], [place] [id number] Oct, Dysthymia F34.1 and PTSD (post-traumatic stress disorder) F43.10 [facility] [id number], [place] [id number] Oct, BMI 45.0-49.9, adult Z68.42 ; Dysthymia F34.1 ; PTSD (post-traumatic stress disorder) F43.10 and Infective urethritis N34.2 [facility] [address] [id number], [place] [id number] Oct, Dysthymia F34.1 and PTSD (post-traumatic stress disorder) F43.10 [facility] [address] [id number], [place] [id number] Sep, Dysthymia F34.1 and PTSD (post-traumatic stress disorder) F43.10 [facility] [id number], [place] [id number] Sep, BMI 45.0-49.9, adult Z68.42 and Mood disorder F39 [facility] [address] [place] [address] [id number] Sep, [facility] [address] [facility] [id number], [place] [id number] Sep, Dysthymia F34.1 [facility] [address]65[address] [id number] Sep, Mood disorder F39 [facility] [address] [id number], [place] [id number] August, Dysthymia F34.1 [facility] [address] [place] [address] [id number] August, Dysthymia F34.1 ; Chronic airway obstruction, not elsewhere classified J44.9 ; Back pain with left-sided radiculopathy M54.10 and BMI 45.0-49.9, adult Z68.42 [facility] [place] [id number] [place] [address] [id number] Jul, Urinary tract infection without hematuria, site unspecified N39.0 and Fatigue, unspecified type R53.83 [facility] [address] [place] [id number] [place] [address] [id number] Jul, Chronic airway obstruction, not elsewhere classified J44.9 [address] [place] [address] [id number] Jul, BMI 45.0-49.9, adult Z68.42 and Infective urethritis N34.[address] [place] [address] [id number] Jul, [address] [id number] Jun, Back pain with left-sided radiculopathy M54.10 [place] [address] [place] [address] [id number] May, Chronic airway obstruction, not elsewhere classified J44.9 and Encounter for immunization Z23 [address] [place] [address] [id number] Apr, BMI 45.0-49.9, adult Z68.42 ; Back pain with left-sided radiculopathy M54.10 ; Chronic airway obstruction, not elsewhere classified J44.9 and Dysthymia F34.1 [address] [place] [address] [id number] Mar, Sciatica of left side M54.32 ; Back pain with left-sided radiculopathy M54.10 and Hereditary and idiopathic neuropathy, 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 [address] [place] [address] [id number] Mar, Flank pain R10.9 ; Urinary urgency R39.15 and Chronic airway obstruction, not elsewhere classified J44.9 [facility] [id number] [place] [address] [id number] Mar, Dysthymia F34.[address] [id number], [place] [id number] Feb, [facility] [address] [facility] [id number], [place] [address] Feb, [facility] [id number] [place] [address] [id number] Feb, Hematuria, unspecified type R31.9 ; Kidney stone N20.0 and BMI 40.0-44.9, adult Z68.41 [facility] [address] [place], [place] [id number] [place] [address] Feb, [facility] [address] [facility] [id number], [place] [id number] Feb, [facility] [address] [place] [id number] [place] [address] [id number] Feb, [facility] [id number] [place] [address] [id number] Feb, Dysthymia F34.1 ; Encounter for immunization Z23 ; Acute nasopharyngitis J00 ; Chronic rhinitis J31.0 and Chronic airway obstruction, not elsewhere classified J44.9 [facility] [address]00565100[place] [address] Jan, Well woman exam Z01.419 ; Left breast lump N63.20 and BMI 40.0-44.9, adult Z68.41 [facility] [id number] [place] [address] [id number] Jan, Muscle cramps R25.2 [facility] [id number] [place] [address] [id number] Dec, Dysthymia F34.1 [facility] [id number], [place] [id number] Dec, Muscle cramps R25.2 [facility] [id number] [place] [address] [id number] Nov, Dysthymia F34.1 [facility] [id number] [place] [address] [id number] Oct, [facility] [address] [place] [id number] [place] [address] [id number] Oct, Chronic airway obstruction, not elsewhere classified J44.9 ; Moderate single current episode of major depressive disorder F32.1 ; Chronic rhinitis J31.0 and Muscle cramps R25.2 [facility] [address] [place] [id number] [place] [address] [id number] Sep, Acute nasopharyngitis J00 [facility] [address] [place] [id number] [place] [address] Jun, Acute exacerbation of chronic obstructive pulmonary disease (COPD) J44.1 [facility] [address] [place] [id number] [place] [address] [id number] Jun, Acute nasopharyngitis J00 [facility] [address] [id number] Jun, [facility] [address] [place] [id number] [place] [address] Apr, [facility] [address] [id number] Mar, Acute nasopharyngitis J00 [facility] [address] [place] [id number] [place] [address] [id number] Mar, [facility] [address] [id number] Mar, [facility] [address] [id number] Feb, CAP (community acquired pneumonia) J18.9 and Chronic rhinitis J31.0 [facility] [address] [place] [id number] [place] [address] [id number] Feb, CAP (community acquired pneumonia) J18.9 [facility] [address] [place] [id number] [place] [address] [id number] Feb, CAP (community acquired pneumonia) J18.9 [facility] [address] [place] [id number] [place] [address] [id number] Feb, [facility] [address] [place] [id number] [place] [address] [id number] Jan, Mood disorder F39 [facility] [address] [address] Jan, [facility] [id number] [place] [address] [id number] Jan, Lung nodule R91.1 [place] [address] [place] [id number] [place] [address] [id number] Jan, Lung nodule R91.1 [place] [address] [place] [address] [id number] Jan, Lung nodule R91.1 [place] [address] [place] [id number] [place] [address] [id number] Jan, Lung nodule R91.1 [place] [address] [place] [address] [id number] Jan, [place] [address] [place] [address] [id number] Nov, Overactive bladder N32.81 ; Chronic airway obstruction, not elsewhere classified J44.9 and Essential hypertension I10 [place] [address] [place] [address] [id number] Oct, [place] [address] [place] [address] [id number] Oct, Acute non-recurrent sinusitis, unspecified location J01.90 ; Cough R05 and Tobacco dependence F17.200 [place] [address] [place] [address] [id number] Sep, Overactive bladder N32.81 and Chronic airway obstruction, not elsewhere classified J44.9 [place] [address] [place] [address] [id number] August, Chronic airway obstruction, not elsewhere classified J44.9 ; Mood disorder F39 and Urinary frequency R35.0 [place] [address] [place] [address] [id number] August, [address] [id number] Jul, Lung nodule R91.1 ; Chronic airway obstruction, not elsewhere classified J44.9 and Urinary tract infection without hematuria, site unspecified N39.0 [place] [address] [place] [address] [id number] Jul, Lung nodule R91.1 [facility] [address]65100[place], [place] [id number] Jul, [facility] [place] [id number] [place] [address] [id number] Jul, Diarrhea R19.7 and Lung nodule R91.1 [facility] [address] [place] [address] [id number] Apr, Upper respiratory tract infection, unspecified type J06.9 and COPD exacerbation J44.1 [facility] [address] [place] [address] [id number] Mar, [facility] [place] [id number] [place] [address] [id number] Feb, Mood disorder F39 and Essential hypertension I10 [address] [place] [address] [id number] Jan, Essential hypertension I10 ; Mood disorder F39 ; Chronic airway obstruction, not elsewhere classified J44.9 and Chronic rhinitis J31.0 [facility] [address], [place] [id number] Jan, [place] [address]00565100[place] [id number] Jan, [facility] [place] [address] [facility] [id number], [place] [id number] Jan, [facility] [place] [id number] [place] [address] [id number] Jan, [facility] [address] [place] [address] [id number] Dec, Bronchitis [address] [facility] [id number] [place] [id number] Dec, [facility] [place] [id number] [place] [address] [id number] Sep, Rhinitis 472.0 [facility] [address] [place] [phone] Jul, [facility] [place] [facility] [address]005[address]100[place], [place] [address] Jul, [facility] [address] [facility] [id number], [place] [id number] Jun, [facility] [place] [facility] [address] [facility] [id number], [place] [address] Jun, [facility] [place] [facility] [address] [facility] [id number], [place] [address] Jun, [facility] [address] [facility] [id number], [place] [id number] May, [facility] [place] [facility] [address] [facility] [id number], [place] [address] May, [facility] [address] [facility] [id number], [place] [id number] Apr, [facility] [place] [facility] [address]00565100[place], [place] [address] Apr, [facility] [address] [facility] [id number], [place] [id number] Mar, [facility] [place] [facility] [address] [facility] [id number], [place] [address] Mar, [facility] [address] [facility] [id number], [place] [id number] Mar, [facility] [place] [facility] [address] [place] [id number] [address] Mar, [facility] [address] [facility] [id number], [place] [id number] Mar, [facility] [place] [facility] [address] [facility] [id number][place] [address] Mar, [facility] [address] [facility] [id number], [place] [id number] Mar, [facility] [place] [facility] [address] [facility] [id number], [place] [address] Mar, [facility] [address] [facility] [id number], [place] [id number] Feb, [facility] [place] [facility] [address] [facility] [id number], [place] [address] Feb, [facility] [address] [facility] [id number] [place] [id number] Feb, [facility] [place] [facility] [address] [facility] [id number] [place] [address] Feb, [facility] [address] [facility] [id number] [place] [id number] Feb, [facility] [place] [facility] [address] [facility] [id number] [place] [address] Feb, [facility] [address] [facility] [id number] [place] [id number] Jan, [facility] [place] [facility] [address]00565100[place], [place] [address] Jan, [facility] [id number], [place] [id number] Jan, [facility] [place] [facility] [address] [facility] [id number], [place] [address] Jan, [facility] [address] [facility] [id number][place] [id number] Sep, [facility] [place] [facility] [id number] [address] Sep, [facility] [place] [facility] [address] [facility] [id number] [address] Sep, [facility] [address] [facility] [id number][place] [id number] Sep, [facility] [place] [facility] [address] [facility] [id number] [address] Sep, [facility] [place] [facility] [address] [facility] [id number] [address] Sep, [facility] [address] [facility] [id number][place] [id number] Jul, [facility] [place] [facility] [address] [facility] [id number] [address] Jul, [facility] [address] [id number] [place] [id number] Jun, [facility] [address] [facility] [id number] [place] [address] Jun, [facility] [address] [id number] [place] [id number] Jun, [facility] [address] [facility] [id number], [place] [address] Jun, [facility] [address] [id number] [place] [id number] Apr, [facility] [place] [facility] [address] [facility] [id number], [place] [address] Apr, [facility] [address] [facility] [id number], [place] [id number] Mar, [facility] [id number] [address] Mar, [facility] [address] [facility] [id number][place] [id number] Mar, [facility] [id number] [address] Mar, [facility] [address] [id number][place] [id number] Feb, [facility] [address] [id number] [address] Feb, [facility] [address] [facility] [id number][place] [id number] Jan, [facility] [address] [facility] [id number] [address] Jan, [facility] [address] [facility] [id number][place] [id number] 30 Dec, 2012 [facility] [address] [facility] [id number], [place] [address] 16 Dec, 2012 [facility] [address] [facility] [id number][place] [id number] Dec, [facility] [address] [id number] [place] [id number] Dec, [facility] [address] [id number] [place] [id number] Oct, [facility] [address] [facility] [id number][place] [address] Oct, [facility] [address] [facility] [id number], [place] [address] Oct, [facility] [address] [id number] [place] [id number] Oct, [facility] [address] [id number] [place] [id number] Sep, [facility] [address] [id number] [place] [id number] August, [facility] [address] [id number] [place] [id number] August, [facility] [address] [id number] [place] [id number] August, [facility] [address] [id number] [place] [id number] Jul, [facility] [address] [facility] [id number], [place] [address] Jul, [facility] [address] [id number] [place] [id number] Jul, [facility] [address] [id number] [place] [id number] Jun, [facility] [address] [facility] [id number], [place] [address] Jun, [facility] [address] [id number] [place] [id number] Jun, [facility] [address] [id number] [place] [id number] Jun, [facility] [address] [id number] [place] [id number] Jun, [facility] [address] [id number][place] [id number] Jun, [facility] [address] [facility] [id number][place] [id number] Jun, [facility] [id number][place] [id number] Feb, [facility] [id number] [address] Feb, [facility] [id number][place] [id number] Jan, [facility] [id number], [place] [id number] Nov, [facility] [id number], [place] [id number] Oct, [facility] [id number][place] [id number] Oct, [facility] [id number][place] [id number] Sep, [facility] [id number] [address] Mar, [facility] [id number] [address] Nov, IMMUNIZATIONS No Known Immunizations SOCIAL HISTORY Never Assessed REASON FOR VISIT PLAN OF CARE VITAL SIGNS Height 67 in 2014-05-28 Weight 239 lbs 2014-05-28 Temperature 97.2 degrees Fahrenheit 2014-05-28 Heart Rate 88 bpm 2014-05-28 Respiratory Rate 20 2014-05-28 Blood pressure systolic 122 mmHg 2014-05-28 Blood pressure diastolic 84 mmHg 2014-05-28 MEDICATIONS Unknown Medications RESULTS No Results PROCEDURES No Known procedures INSTRUCTIONS MEDICATIONS ADMINISTERED No Known Medications MEDICAL (GENERAL) HISTORY Type Description Date Medical History hypertension Medical History allergies Medical History chronic obstructive pulmonary disease (COPD) Medical History anxiety Medical History sciatica Medical History acid reflux Medical History Pneumococcal inj (2012) Medical History depression Surgical History cholecystectomy 1979 Hospitalization History [facility] 2012 Hospitalization History [facility] x 3 days for stomach flu 07/24/15 Hospitalization History [facility]-given mag citrate for "blockage" 03/09/2016 Hospitalization History [facility]- Abhinav anxiety 04/20/2018
--- OUTSIDE RECORDS SUMMARY | 2018-10-08 13:22 | XMS REPORT ---
Author Author KATERINA SMITH [facility] Address [address] [place] [address] Care Team Providers Care Rail Director Name Role Phone KATERINA SMITH Unavailable PROBLEMS Type Condition ICD9-CM Code HHH70-JK Code Onset Dates Condition Status SNOMED Code Problem Female stress incontinence 625.6 Active 84858834 Problem Chronic rhinitis J31.0 Active 15299010 Problem Nondependent tobacco use disorder 305.1 Active 773302547 Problem Chronic airway obstruction, not elsewhere classified J44.9 Active 74417108 Problem Essential hypertension I10 Active 32378706 Problem Overactive bladder N32.81 Active 216650531 Problem Lung nodule R91.1 Active 410175150 Problem Kidney stone N20.0 Active 93150867 Problem Hereditary and idiopathic neuropathy, 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 Active 52428494 Problem Sciatica of left side M54.32 Active 53244660 Problem Bipolar II disorder F31.81 Active 98814610 Problem Acute exacerbation of chronic obstructive pulmonary disease (COPD) J44.1 Active 455455230 Problem Chronic bronchitis, unspecified chronic bronchitis type J42 Active 32819855 Problem CAP (community acquired pneumonia) J18.9 Active 057328437 Problem Back pain with left-sided radiculopathy M54.10 Active 125922880 Problem PTSD (post-traumatic stress disorder) F43.10 Active 25389446 Problem 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 [id number] [address] Oct, [facility] [address] [facility] [id number] [place] [address] Sep, [facility] [address] [place] [id number] [address] August, Morbid obesity E66.01 ; Chronic airway obstruction, not elsewhere classified J44.9 ; Sciatica of left side M54.32 ; Back pain with left-sided radiculopathy M54.10 ; Essential hypertension I10 and Chronic rhinitis J31.0 [facility] [address]00565100[place] [id number] August, [id number] [place] [address] [id number] August, [place] [id number] [place] [address] August, Bipolar II disorder F31.81 [address] [place] [address] [id number] Jul, Morbid obesity E66.01 ; Chronic bronchitis, unspecified chronic bronchitis type J42 ; Bipolar II disorder F31.81 ; Chronic rhinitis J31.0 and PTSD (post- traumatic stress disorder) F43.10 [facility] [address]00565100[place] [address] Jul, Bipolar II disorder F31.81 [address] [place] [address] [id number] Jun, Morbid obesity E66.01 ; Chronic rhinitis J31.0 ; Essential hypertension I10 ; Chronic airway obstruction, not elsewhere classified J44.9 ; Acute cystitis without hematuria N30.00 and UTI (lower urinary tract infection) N39.0 [facility] [address]00565100[place] [address] Jun, Bipolar II disorder F31.81 ; 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 and PTSD (post-traumatic stress disorder) F43.10 [facility] [address] [id number][place] [id number] Jun, [facility] [address] [id number][place] [id number] Jun, Hereditary and idiopathic neuropathy, 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 [facility] [address] [id number][place] [id number] Jun, [facility] [id number] [address] May, Bipolar II disorder F31.[address] [id number], [place] [id number] May, BMI 45.0-49.9, adult Z68.42 ; Chronic rhinitis J31.0 ; Chronic airway obstruction, not elsewhere classified J44.9 and Hereditary and idiopathic neuropathy, 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 [id number][place] [id number] May, [address]65100[place] [id number] May, [facility] [id number] [address] May, Bipolar II disorder F31.81 and PTSD (post-traumatic stress disorder) F43.10 [place] [address]00565100[place] [address] May, Bipolar II disorder F31.81 ; 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 and PTSD (post-traumatic stress disorder) F43.[address] [id number], [place] [id number] Apr, BMI 45.0-49.9, adult Z68.42 ; Bipolar II disorder F31.81 and Chronic bronchitis, unspecified chronic bronchitis type J42 [facility] [address] [id number][place] [id number] Apr, Dysthymia F34.[address] [id number], [place] [id number] Apr, [address] [id number], [place] [id number] Apr, BMI 45.0-49.9, adult Z68.42 ; Bipolar II disorder F31.81 and Acute cystitis without hematuria N30.00 [facility] [address] [place] [address] Apr, Bipolar II disorder F31.81 ; 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 and PTSD (post-traumatic stress disorder) F43.10 [facility] [id number] [place] [address] [id number] Mar, [facility] [address] [id number] Mar, Dysthymia F34.1 [facility] [id number] [place] [address] [id number] Mar, BMI 45.0-49.9, adult Z68.42 ; Bipolar II disorder F31.81 ; Dysthymia F34.1 and Intertrigo L30.4 [facility] [address] [place] [address] Mar, Bipolar II disorder F31.81 ; 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 and PTSD (post-traumatic stress disorder) F43.10 [facility] [id number] [place] [address] [id number] Feb, Dysthymia F34.1 and BMI 45.0-49.9, adult Z68.42 [facility] [id number] [place] [address] [id number] Feb, Dysthymia F34.1 ; Chronic rhinitis J31.0 ; Strain of lumbar region, subsequent encounter S39.012D and BMI 45.0-49.9, adult Z68.42 [facility] [id number] [place] [address] [id number] Jan, Encounter for immunization Z23 [facility] [id number] [place] [address] [id number] Jan, Dysthymia F34.1 [facility] [address] [place] [address] Jan, PTSD (post-traumatic stress disorder) F43.10 and 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 [facility] [place] [id number] [address] Jan, BMI 45.0-49.9, adult Z68.42 and PTSD (post-traumatic stress disorder) F43.10 [facility] [address] [place] [address] [id number] Jan, BMI 45.0-49.9, adult Z68.42 and Chronic airway obstruction, not elsewhere classified J44.9 [address] [place] [address] [id number] Dec, PTSD (post-traumatic stress disorder) F43.10 ; Chronic airway obstruction, not elsewhere classified J44.9 ; Dysthymia F34.1 and Thrush B37.0 [address] [place] [address] [id number] Nov, Dysthymia F34.1 [facility] [address]00565100[place] [address] Nov, PTSD (post-traumatic stress disorder) F43.10 and 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 [address] [place] [address] [id number] Nov, BMI 45.0-49.9, adult Z68.42 ; Strain of lumbar region, subsequent encounter S39.012D ; PTSD (post-traumatic stress disorder) F43.10 and Dysthymia F34.1 [address] [place] [address] [id number] Oct, [facility] [address] [place] [address] [id number] Oct, Dysthymia F34.1 and PTSD (post-traumatic stress disorder) F43.[address] [place] [address] [id number] Oct, BMI 45.0-49.9, adult Z68.42 ; Dysthymia F34.1 ; PTSD (post-traumatic stress disorder) F43.10 and Infective urethritis N34.[address] [id number], [place] 194083006 Oct, Dysthymia F34.1 and PTSD (post-traumatic stress disorder) F43.10 [facility] [address] [id number], [place] [id number] Sep, Dysthymia F34.1 and PTSD (post-traumatic stress disorder) F43.10 [facility] [address]00565100[place] [id number] Sep, BMI 45.0-49.9, adult Z68.42 and Mood disorder F39 [facility] [address] [place] [address] [id number] Sep, [facility] [address] [facility] [address] [id number][place] [id number] Sep, Dysthymia F34.1 [facility] [address] [place] [address] [id number] Sep, Mood disorder F39 [facility] [address] [place] [address] AVE [id number], [place] [id number] August, Dysthymia F34.1 [facility] [address] [place] [address] [id number] August, Dysthymia F34.1 ; Chronic airway obstruction, not elsewhere classified J44.9 ; Back pain with left-sided radiculopathy M54.10 and BMI 45.0-49.9, adult Z68.42 [facility] [address] [place] [address] [id number] Jul, Urinary tract infection without hematuria, site unspecified N39.0 and Fatigue, unspecified type R53.83 [facility] [address] [place] [address] [id number] Jul, Chronic airway obstruction, not elsewhere classified J44.9 [facility] [place] [id number] [place] [address] [id number] Jul, BMI 45.0-49.9, adult Z68.42 and Infective urethritis N34.2 [facility] [place] [id number] [place] [address] [id number] Jul, [facility] [address] [place] [address] [id number], [place] [id number] Jun, Back pain with left-sided radiculopathy M54.10 [facility] [id number], [place] [id number] May, Chronic airway obstruction, not elsewhere classified J44.9 and Encounter for immunization Z23 [facility] [address] [place] [address] [id number] Apr, BMI 45.0-49.9, adult Z68.42 ; Back pain with left-sided radiculopathy M54.10 ; Chronic airway obstruction, not elsewhere classified J44.9 and Dysthymia F34.1 [facility] [address]00565100[place], [place] [id number] Mar, Sciatica of left side M54.32 ; Back pain with left-sided radiculopathy M54.10 and Hereditary and idiopathic neuropathy, 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 [facility] [id number], [place] [id number] Mar, Flank pain R10.9 ; Urinary urgency R39.15 and Chronic airway obstruction, not elsewhere classified J44.9 [facility] [address]00565100[place], [place] [id number] Mar, Dysthymia F34.1 [facility] [address] [facility] [address] [id number][place] [id number] Feb, [facility] [address] [facility] [id number] [place] [address] Feb, [facility] [address] [facility] [id number], [place] [id number] Feb, Hematuria, unspecified type R31.9 ; Kidney stone N20.0 and BMI 40.0-44.9, adult Z68.41 [facility] [address] [facility] [id number] [address] 08 Feb, 2017 [facility] [address] [id number], [place] [id number] Feb, [facility] [place] [id number] [place] [address] [id number] Feb, [facility] [place] [address] [id number] Feb, Dysthymia F34.1 ; Encounter for immunization Z23 ; Acute nasopharyngitis J00 ; Chronic rhinitis J31.0 and Chronic airway obstruction, not elsewhere classified J44.9 [facility] [address] [place] [id number] [place] [address] Jan, Well woman exam Z01.419 ; Left breast lump N63.20 and BMI 40.0-44.9, adult Z68.41 [facility] [place] [id number] [place] [address] [phone] Jan, Muscle cramps R25.2 [facility] [place] [address] [id number] Dec, Dysthymia F34.1 [facility] [place] [address] [id number] Dec, Muscle cramps R25.2 [facility] [place] [id number] [place] [address] [id number] Nov, Dysthymia F34.1 [facility] [place] [address] [id number] [place] [address] [id number] Oct, [facility] [place] [address] [id number] [place] [address] [id number] Oct, Chronic airway obstruction, not elsewhere classified J44.9 ; Moderate single current episode of major depressive disorder F32.1 ; Chronic rhinitis J31.0 and Muscle cramps R25.2 [facility] [place] [id number] [place] [address] [id number] Sep, Acute nasopharyngitis J00 [facility] [id number] [address] Jun, Acute exacerbation of chronic obstructive pulmonary disease (COPD) J44.1 [facility] [id number] [place] [address] [id number] Jun, Acute nasopharyngitis J00 [facility] [id number], [place] [id number] Jun, [facility] [address] [id number] [place] [address] Apr, [facility] [id number] [place] [address] [id number] Mar, Acute nasopharyngitis J00 [facility] [id number] [place] [address] [id number] Mar, [facility] [address] [id number] [place] [address] [id number] Mar, [facility] [address] [id number] [place] [address] [id number] Feb, CAP (community acquired pneumonia) J18.9 and Chronic rhinitis J31.0 [facility] [address] [id number] [place] [address] [id number] Feb, CAP (community acquired pneumonia) J18.9 [facility] [address] [id number] [place] [address] [id number] Feb, CAP (community acquired pneumonia) J18.9 [facility] [id number] [place] [address] [id number] Feb, [facility] [id number] [place] [address] [id number] Jan, Mood disorder F39 [facility] [address]00565100[place] [address] Jan, [facility] [address] [id number] [place] [address] [id number] Jan, Lung nodule R91.1 [facility] [id number] [place] [address] [id number] Jan, Lung nodule R91.1 [facility] [address] [id number] [place] [address] [id number] Jan, Lung nodule R91.1 [facility] [id number] [place] [address] [id number] Jan, Lung nodule R91.1 [place] [id number] [place] [address] [id number] Jan, [place] [id number] [place] [address] [id number] Nov, Overactive bladder N32.81 ; Chronic airway obstruction, not elsewhere classified J44.9 and Essential hypertension I10 [address] [id number] Oct, [address] [id number] Oct, Acute non-recurrent sinusitis, unspecified location J01.90 ; Cough R05 and Tobacco dependence F17.[address] [id number] Sep, Overactive bladder N32.81 and Chronic airway obstruction, not elsewhere classified J44.[address] [id number] August, Chronic airway obstruction, not elsewhere classified J44.9 ; Mood disorder F39 and Urinary frequency R35.0 [place] [id number] [place] [address] [id number] August, [address] [id number] Jul, Lung nodule R91.1 ; Chronic airway obstruction, not elsewhere classified J44.9 and Urinary tract infection without hematuria, site unspecified N39.0 [place] [id number] [place] [address] [id number] Jul, Lung nodule R91.1 [place] [id number] [place] [address] [id number] Jul, [place] [id number] [place] [address] [id number] Jul, Diarrhea R19.7 and Lung nodule R91.[address] [id number] Apr, Upper respiratory tract infection, unspecified type J06.9 and COPD exacerbation J44.[address] [id number] Mar, [facility] [place] [address] [facility] [id number], [place] [id number] Feb, Mood disorder F39 and Essential hypertension I10 [facility] [place] [address] [place] [id number], [place] [id number] Jan, Essential hypertension I10 ; Mood disorder F39 ; Chronic airway obstruction, not elsewhere classified J44.9 and Chronic rhinitis J31.0 [facility] [place] [id number], [place] [id number] Jan, [facility] [address] [facility] [id number], [place] [id number] Jan, [facility] [address] [id number], [place] [id number] Jan, [facility] [place] [address] [facility] [id number], [place] [id number] Jan, [facility] [place] [id number], [place] [id number] Dec, Bronchitis 490 [facility] 604 [facility] [id number], [place] [id number] Dec, [facility] [place] [id number] [place] [address] [id number] Sep, Rhinitis 472.0 [facility] [address] [place] [address] [id number] [address] Jul, [facility] [place] [facility] [address]00565100[place] [address] Jul, [facility] [address] [facility] [id number], [place] [id number] Jun, [facility] [place] [facility] [id number] [place] [address] Jun, [facility] [place] [facility] [address]00565100[place] [address] Jun, [facility] [address] [facility] [id number], [place] [id number] May, [facility] [place] [facility] [address] [facility] [id number] [place] [address] May, [facility] [address] [id number] [place] [id number] Apr, [facility] [place] [facility] [address] [facility] [id number] [place] [address] Apr, [facility] [address] [facility] [id number] [place] [id number] Mar, [facility] [place] [facility] [address] [facility] [id number] [place] [address] Mar, [facility] [address] [facility] [id number] [place] [id number] Mar, [facility] [place] [facility] [address] [facility] [id number] [place] [address] Mar, [facility] [address] [facility] [id number], [place] [id number] Mar, [facility] [place] [facility] [address] [facility] [id number] [place] [address] Mar, [facility] [address] [facility] [id number] [place] [id number] Mar, [facility] [place] [facility] [address] [facility] [id number] [place] [address] Mar, [facility] [address] [facility] [id number], [place] [id number] Feb, [facility] [place] [facility] [address] [facility] [id number] [place] [address] Feb, [facility] [address] [facility] [id number], [place] [id number] Feb, [facility] [place] [facility] [address] [facility] [id number] [place] [address] Feb, [facility] [address] [facility] [id number] [place] [id number] Feb, [facility] [place] [facility] [address] [facility] [id number] [place] [address] Feb, [facility] [address] [facility] [id number], [place] [id number] Jan, [facility] [place] [facility] [address] [facility] [id number] [place] [address] Jan, [facility] [address] [facility] [id number], [place] [id number] Jan, [facility] [place] [facility] [address] [facility] [id number] [place] [address] Jan, [facility] [address] [facility] [id number], [place] [id number] Sep, [facility] [place] [facility] [address] [facility] [id number] [place] [address] Sep, [facility] [place] [facility] [address] [facility] [id number] [place] [address] Sep, [facility] [address] [facility] [id number], [place] [id number] Sep, [facility] [place] [facility] [address] [facility] [id number] [place] [address] Sep, [facility] [place] [facility] [address] [facility] [id number] [place] [address] Sep, [facility] [address] [facility] [id number], [place] [id number] Jul, [facility] [place] [facility] [address] [facility] [id number] [place] [address] Jul, [facility] [address] [facility] [id number], [place] [id number] Jun, [facility] [place] [facility] [address] [facility] [id number] [address] Jun, [facility] [address] [facility] [id number][place] [id number] Jun, [facility] [place] [facility] [address] [facility] [id number] [place] [address] Jun, [facility] [address] [id number] [id number] Apr, [facility] [place] [facility] [address] [facility] [id number] [place] [address] Apr, [facility] [address] [id number] [place] [id number] Mar, [facility] [place] [facility] [address] [facility] [id number] [place] [address] Mar, [facility] [address] [id number] [place] [id number] Mar, [facility] [place] [facility] [address] [facility] [id number] [place] [address] Mar, [facility] [address] [id number] [place] [id number] Feb, [facility] [place] [facility] [address] [facility] [id number] [place] [address] Feb, [facility] [address] [id number] [place] [id number] Jan, [facility] [place] [facility] [id number] [place] [address] Jan, [facility] [address] [id number] [place] [id number] Dec, [facility] [place] [facility] [address] [facility] [id number] [place] [address] Dec, [facility] [address] [id number] [place] [id number] Dec, [facility] [address] [id number][place] [id number] Dec, 2012 [facility] [address] [id number] [place] [id number] Oct, [facility] [place] [facility] [address] [facility] [id number] [place] [address] Oct, [facility] [place] [facility] [address] [facility] [id number] [place] [address] Oct, [facility] [address] [id number] [id number] Oct, [facility] [address] [id number] [place] [id number] Sep, [facility] [address] [id number] [place] [id number] August, [facility] [address] [id number] [place] [id number] August, [facility] [address] [id number] [place] [id number] August, [facility] [address] [id number] [place] [id number] Jul, [facility] [address] [facility] [id number] [place] [address] Jul, [facility] [address] [id number] [place] [id number] Jul, [facility] [address] [id number] [place] [id number] Jun, [facility] [id number] [address] Jun, [facility] [address] [id number] [place] [id number] Jun, [facility] [address] [id number] [place] [id number] Jun, [facility] [facility] [address] [id number] [place] [id number] Jun, [facility] [address] [id number] [place] [id number] Jun, [facility] [address] [id number] [place] [id number] Jun, [facility] [address] [id number] [place] [id number] Feb, [facility] [address] [facility] [id number] [address] Feb, [facility] [address] [id number] [place] [id number] Jan, [facility] [address] [id number] [place] [id number] Nov, [facility] [address] [id number] [place] [id number] Oct, [facility] [address] [id number] [place] [id number] Oct, [facility] [address] [id number] [place] [id number] Sep, [facility] [address] [facility] [id number] [address] Mar, [facility] [address] [facility] [id number] [address] Nov, IMMUNIZATIONS No Known Immunizations SOCIAL HISTORY Never Assessed REASON FOR VISIT COPD follow up Jake PEREZ PLAN OF CARE Activity Details Follow Up 4 Weeks Reason:cough VITAL SIGNS Height 67 in 2018-05-31 Weight 303.0 lbs 2018-05-31 Temperature 97.0 degrees Fahrenheit 2018-05-31 Heart Rate 98 bpm 2018-05-31 Respiratory Rate 18 2018-05-31 BMI 47.45 kg/m2 2018-05-31 Blood pressure systolic 128 mmHg 2018-05-31 Blood pressure diastolic 72 mmHg 2018-05-31 MEDICATIONS Medication Instructions Dosage Frequency Start Date End Date Duration Status Seroquel 50 MG Orally at bedtime 1 tablet Mar, 30 days Active Prazosin HCl 2 MG Orally Once a day 2 capsule at bedtime 24h Oct, 30 days Active Lisinopril 10 mg Orally Once a day 1 tablet 24h 90 days Active Zyrtec Allergy 10 mg Orally Once a day 1 tablet 24h Active Albuterol Sulfate (2.5 MG/3ML) 0.083% Inhalation 4 times a day 3 ml as needed 6h Apr, Active Benadryl Allergy 25 MG Orally at bedtime 1 tablet as needed Active Albuterol Sulfate HFA cfc free 90 mcg/inh Inhalation every 4 hrs 2 puffs as needed 4h Dec, Active Methocarbamol 500 mg Orally 3 times a day 1 tablets 8h Oct, Active Flonase 50 mcg/act Nasally Once a day 2 spray in each nostril 24h Apr, Active Pantoprazole Sodium 40 mg Orally Once a day 1 tablet 24h Active Lamictal 150 MG Orally at bedtime 1 tablet Feb, 30 days Active Oxygen 2 L/NC by inhalation route w activity and hs w concentrater on protable O2 and conserving device Jan, Active Anoro Ellipta 62.5-25 MCG/INH Inhalation Once a day 1 puff 24h Dec, Active Lyrica 50 MG Orally Twice a day 1 capsule 12h May, Active Atrovent 0.03 % Nasally Twice a day 2 sprays in each nostril 12h Active RESULTS No Results PROCEDURES No Known procedures INSTRUCTIONS MEDICATIONS ADMINISTERED No Known Medications MEDICAL (GENERAL) HISTORY Type Description Date Medical History hypertension Medical History allergies Medical History chronic obstructive pulmonary disease (COPD) Medical History anxiety Medical History sciatica Medical History acid reflux Medical History Pneumococcal inj (2012) Medical History depression Surgical History cholecystectomy 1979 Hospitalization History Via [facility] for pneumonia 2012 Hospitalization History Via [facility] x 3 days for stomach flu 07/24/15 Hospitalization History [facility] for vomiting-given mag citrate for "blockage" 03/09/2016 Hospitalization History [facility]- Abhinav anxiety 04/20/2018
--- OUTSIDE RECORDS SUMMARY | 2018-10-08 13:22 | XMS REPORT ---
Author Author KATERINA SMITH [facility] Address [address] [place] [address] Care Team Providers Care Vegetable Vendor Name Role Phone KATERINA SMITH Unavailable PROBLEMS Type Condition ICD9-CM Code UEL99-WD Code Onset Dates Condition Status SNOMED Code Problem Female stress incontinence 625.6 Active 13860836 Problem Chronic rhinitis J31.0 Active 02585724 Problem Nondependent tobacco use disorder 305.1 Active 082943493 Problem Chronic airway obstruction, not elsewhere classified J44.9 Active 73994909 Problem Essential hypertension I10 Active 73561092 Problem Overactive bladder N32.81 Active 546619321 Problem Lung nodule R91.1 Active 494630689 Problem Kidney stone N20.0 Active 21014804 Problem Hereditary and idiopathic neuropathy, 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 Active 69494415 Problem Sciatica of left side M54.32 Active 89821197 Problem Bipolar II disorder F31.81 Active 38598687 Problem Acute exacerbation of chronic obstructive pulmonary disease (COPD) J44.1 Active 105654994 Problem Chronic bronchitis, unspecified chronic bronchitis type J42 Active 02962893 Problem CAP (community acquired pneumonia) J18.9 Active 617550377 Problem Back pain with left-sided radiculopathy M54.10 Active 530712498 Problem PTSD (post-traumatic stress disorder) F43.10 Active 29900573 Problem 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 [id number], [place] [address] Oct, [facility] [address] [facility] [id number], [place] [address] Sep, [facility] [address] [facility] [id number] [id number] August, Morbid obesity E66.01 ; Chronic airway obstruction, not elsewhere classified J44.9 ; Sciatica of left side M54.32 ; Back pain with left-sided radiculopathy M54.10 ; Essential hypertension I10 and Chronic rhinitis J31.0 [facility] [id number], [place] [id number] August, [facility] [id number], [place] [id number] August, [place] [address] [place] [id number] [place] [address] August, Bipolar II disorder F31.81 [address] [place] [address] [id number] Jul, Morbid obesity E66.01 ; Chronic bronchitis, unspecified chronic bronchitis type J42 ; Bipolar II disorder F31.81 ; Chronic rhinitis J31.0 and PTSD (post- traumatic stress disorder) F43.10 [place] [address]005[address], [place] [address] Jul, Bipolar II disorder F31.81 [place] [id number] [id number] Jun, Morbid obesity E66.01 ; Chronic rhinitis J31.0 ; Essential hypertension I10 ; Chronic airway obstruction, not elsewhere classified J44.9 ; Acute cystitis without hematuria N30.00 and UTI (lower urinary tract infection) N39.0 [place] [address]00565100[place], [place] [address] Jun, Bipolar II disorder F31.81 ; 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 and PTSD (post-traumatic stress disorder) F43.10 [facility] [address] [id number] [place] [id number] Jun, [facility] [address] [id number] [place] [id number] Jun, Hereditary and idiopathic neuropathy, 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 [facility] [address] [address] [id number] [place] [address] Jun, [place] [address]00565[address], [place] [address] May, Bipolar II disorder F31.81 [address]00565100[place] [address] May, BMI 45.0-49.9, adult Z68.42 ; Chronic rhinitis J31.0 ; Chronic airway obstruction, not elsewhere classified J44.9 and Hereditary and idiopathic neuropathy, 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 [address]00565100[place] [id number] May, [address] [place] [address] [id number] May, [place] [address] [place] [address] May, Bipolar II disorder F31.81 and PTSD (post-traumatic stress disorder) F43.10 [place] [address]00565100[place], [place] [address] May, Bipolar II disorder F31.81 ; 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 and PTSD (post-traumatic stress disorder) F43.10 [address] [place] [address] [id number] Apr, BMI 45.0-49.9, adult Z68.42 ; Bipolar II disorder F31.81 and Chronic bronchitis, unspecified chronic bronchitis type J42 [place] [address] [id number] [place] [id number] Apr, Dysthymia F34.[address] [id number], [place] [id number] Apr, [address] [place] [address] [id number] Apr, BMI 45.0-49.9, adult Z68.42 ; Bipolar II disorder F31.81 and Acute cystitis without hematuria N30.[address] [place] [address] Apr, Bipolar II disorder F31.81 ; 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 and PTSD (post-traumatic stress disorder) F43.10 [facility] [id number], [place] [id number] Mar, [facility] [address] [place] [address] [id number] Mar, Dysthymia F34.1 [address] [place] [address] [id number] Mar, BMI 45.0-49.9, adult Z68.42 ; Bipolar II disorder F31.81 ; Dysthymia F34.1 and Intertrigo L30.4 [place] [address]00565100[place], [place] [address] Mar, Bipolar II disorder F31.81 ; 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 and PTSD (post-traumatic stress disorder) F43.10 [address] [place] [address] [id number] Feb, Dysthymia F34.1 and BMI 45.0-49.9, adult Z68.42 [address] [place] [address] [id number] Feb, Dysthymia F34.1 ; Chronic rhinitis J31.0 ; Strain of lumbar region, subsequent encounter S39.012D and BMI 45.0-49.9, adult Z68.42 [address] [place] [address] [id number] Jan, Encounter for immunization Z23 [facility] [address] [place] [address] [id number] Jan, Dysthymia F34.1 [facility] [address] [place] [address] Jan, PTSD (post-traumatic stress disorder) F43.10 and 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 [address] [place] [address] [id number] Jan, BMI 45.0-49.9, adult Z68.42 and PTSD (post-traumatic stress disorder) F43.10 [facility] [place] [id number], [place] [id number] Jan, BMI 45.0-49.9, adult Z68.42 and Chronic airway obstruction, not elsewhere classified J44.9 [facility] [address]00565100[place], [place] [address] Dec, PTSD (post-traumatic stress disorder) F43.10 ; Chronic airway obstruction, not elsewhere classified J44.9 ; Dysthymia F34.1 and Thrush B37.0 [facility] [address] [place] [address] [id number] Nov, Dysthymia F34.1 [facility] [address] 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 [facility] [address] [place] [address] [id number] Nov, BMI 45.0-49.9, adult Z68.42 ; Strain of lumbar region, subsequent encounter S39.012D ; PTSD (post-traumatic stress disorder) F43.10 and Dysthymia F34.1 [facility] [place] [id number] [id number] Oct, [address] [place] [address] [id number] Oct, Dysthymia F34.1 and PTSD (post-traumatic stress disorder) F43.10 [facility] [address] [id number], [place] [id number] Oct, BMI 45.0-49.9, adult Z68.42 ; Dysthymia F34.1 ; PTSD (post-traumatic stress disorder) F43.10 and Infective urethritis N34.2 [place] [address] [facility] [address] [id number] [place] [id number] Oct, Dysthymia F34.1 and PTSD (post-traumatic stress disorder) F43.10 [facility] [address] [id number] [place] [id number] Sep, Dysthymia F34.1 and PTSD (post-traumatic stress disorder) F43.10 [facility] [id number], [place] [id number] Sep, BMI 45.0-49.9, adult Z68.42 and Mood disorder F39 [facility] [address] [place] [id number] [place] [address] [id number] Sep, [facility] [address] [facility] [address] [address] [id number] [place] [id number] Sep, Dysthymia F34.1 [facility] [address] [place] [address] [id number] Sep, Mood disorder F39 [facility] [place] [address] [facility] [address] [id number] [place] [id number] August, Dysthymia F34.1 [facility] [place] [id number] [place] [address] [id number] August, Dysthymia F34.1 ; Chronic airway obstruction, not elsewhere classified J44.9 ; Back pain with left-sided radiculopathy M54.10 and BMI 45.0-49.9, adult Z68.42 [facility] [address]00565100[place], [place] [id number] Jul, Urinary tract infection without hematuria, site unspecified N39.0 and Fatigue, unspecified type R53.83 [facility] [address] [place] [address] [id number] Jul, Chronic airway obstruction, not elsewhere classified J44.9 [facility] [address] [place] [address] [id number] Jul, BMI 45.0-49.9, adult Z68.42 and Infective urethritis N34.2 [facility] [address] [place] [address] [id number] Jul, [facility] [place] [id number] [place] [address] [id number] Jun, Back pain with left-sided radiculopathy M54.10 [facility] [place] [place] [id number], [place] [id number] May, Chronic airway obstruction, not elsewhere classified J44.9 and Encounter for immunization Z23 [facility] [place] [id number], [place] [id number] Apr, BMI 45.0-49.9, adult Z68.42 ; Back pain with left-sided radiculopathy M54.10 ; Chronic airway obstruction, not elsewhere classified J44.9 and Dysthymia F34.1 [facility] [place] [id number] [place] [address] [id number] Mar, Sciatica of left side M54.32 ; Back pain with left-sided radiculopathy M54.10 and Hereditary and idiopathic neuropathy, 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 [facility] [id number] [place] [address] [id number] Mar, Flank pain R10.9 ; Urinary urgency R39.15 and Chronic airway obstruction, not elsewhere classified J44.9 [facility] [id number], [place] [id number] Mar, Dysthymia F34.1 [facility] [address] [id number] [place] [id number] Feb, [facility] [address] [facility] [id number], [place] [address] Feb, [facility] [address] [place] [id number], [place] [id number] Feb, Hematuria, unspecified type R31.9 ; Kidney stone N20.0 and BMI 40.0-44.9, adult Z68.41 [facility] [address] [place] [id number] [address] 08 Feb, [address] [facility] [address] [id number] [place] [id number] Feb, [facility] [id number] [place] [address] [id number] Feb, [facility] [id number] [place] [address] [id number] Feb, Dysthymia F34.1 ; Encounter for immunization Z23 ; Acute nasopharyngitis J00 ; Chronic rhinitis J31.0 and Chronic airway obstruction, not elsewhere classified J44.9 [facility] [address] [place] [id number] [place] [address] Jan, Well woman exam Z01.419 ; Left breast lump N63.20 and BMI 40.0-44.9, adult Z68.41 [facility] [place] [address] [place] [id number] [place] [address] [id number] Jan, Muscle cramps R25.2 [facility] [place] [address] [place] [id number] [place] [address] [id number] Dec, Dysthymia F34.1 [facility] [address] [place] [id number] [place] [address] [id number] Dec, Muscle cramps R25.2 [facility] [address] [place] [id number] [place] [address] [id number] Nov, Dysthymia F34.1 [facility] [place] [address] [place] [id number] [place] [address] [id number] Oct, [facility] [address] [place] [id number] [place] [address] [id number] Oct, Chronic airway obstruction, not elsewhere classified J44.9 ; Moderate single current episode of major depressive disorder F32.1 ; Chronic rhinitis J31.0 and Muscle cramps R25.2 [facility] [address] [place] [id number] [place] [address] [id number] Sep, Acute nasopharyngitis J00 [facility] [address] [place] [address] Jun, Acute exacerbation of chronic obstructive pulmonary disease (COPD) J44.1 [facility] [address] [place] [id number] [place] [address] [id number] Jun, Acute nasopharyngitis J00 [facility] [address] [place] [id number] [place] [address] [id number] Jun, [facility] [address]00565100[place], [place] [address] Apr, [facility] [id number] [place] [address] [id number] Mar, Acute nasopharyngitis J00 [facility] [address] [id number] [place] [address] [id number] Mar, [facility] [address] [id number] [place] [address] [id number] Mar, [facility] [id number] [place] [address] [id number] Feb, CAP (community acquired pneumonia) J18.9 and Chronic rhinitis J31.0 [facility] [id number] [place] [address] [id number] Feb, CAP (community acquired pneumonia) J18.9 [facility] [address] [place] [id number] [place] [address] [id number] Feb, CAP (community acquired pneumonia) J18.9 [facility] [id number] [place] [address] [id number] Feb, [facility] [address] [place] [id number] [place] [address] [id number] Jan, Mood disorder F39 [facility] [address]00565100[place], [place] [address] Jan, [facility] [id number], [place] [id number] Jan, Lung nodule R91.1 [facility] [address] [id number], [place] [id number] Jan, Lung nodule R91.1 [facility] [id number] [place] [address] [id number] Jan, Lung nodule R91.1 [facility] [id number] [place] [address] [id number] Jan, Lung nodule R91.1 [facility] [id number], [place] [id number] Jan, [place] [id number] [place] [address] [id number] Nov, Overactive bladder N32.81 ; Chronic airway obstruction, not elsewhere classified J44.9 and Essential hypertension I10 [place] [id number] [place] [address] [id number] Oct, [address] [id number] Oct, Acute non-recurrent sinusitis, unspecified location J01.90 ; Cough R05 and Tobacco dependence F17.[address] [id number] Sep, Overactive bladder N32.81 and Chronic airway obstruction, not elsewhere classified J44.9 [place] [id number] [place] [address] [id number] August, Chronic airway obstruction, not elsewhere classified J44.9 ; Mood disorder F39 and Urinary frequency R35.[address] [id number] August, [place] [id number] [place] [address] [id number] Jul, Lung nodule R91.1 ; Chronic airway obstruction, not elsewhere classified J44.9 and Urinary tract infection without hematuria, site unspecified N39.0 [place] [id number] [place] [address] [id number] Jul, Lung nodule R91.1 [place] [id number] [place] [address] [id number] Jul, [place] [id number] [place] [address] [id number] Jul, Diarrhea R19.7 and Lung nodule R91.[address] [id number] Apr, Upper respiratory tract infection, unspecified type J06.9 and COPD exacerbation J44.1 [place] [id number] [place] [address] [id number] Mar, [address] [id number] Feb, Mood disorder F39 and Essential hypertension I10 [facility] [address] [place] [id number], [place] 414723314 Jan, Essential hypertension I10 ; Mood disorder F39 ; Chronic airway obstruction, not elsewhere classified J44.9 and Chronic rhinitis J31.0 [facility] [address] [place] [id number], [place] [id number] Jan, [facility] [id number], [place] [id number] Jan, [facility] [place] [address] [facility] [id number] [place] [id number] Jan, [facility] [id number], [place] [id number] Jan, [facility] [address] [place] [id number], [place] [id number] Dec, Bronchitis [address] [place] [address]94 [address]00565100[place], [place] [id number] Dec, [facility] [address] W [place] [id number], [place] 757751875 Sep, Rhinitis 472.0 [facility] [place] [facility] [address] [place] [id number] [place] [address] Jul, [facility] [place] [facility] [address] [place] [address] Jul, [facility] [address] [place] [id number], [place] [id number] Jun, [facility] [place] [facility] [address] [place] [address] Jun, [facility] [place] [facility] [address] [place] [id number] [place] [address] Jun, [facility] [id number], [place] [id number] May, [facility] [place] [facility] [address] [place] [id number] [place] [address] May, [facility] [address] [id number] [place] [id number] Apr, [facility] [place] [facility] [address] [facility] [id number], [place] [address] Apr, [facility] [address] [facility] [id number] [place] [id number] Mar, [facility] [place] [facility] [address]00565100[place], [place] [address] Mar, [facility] [address] [facility] [id number] [place] [id number] Mar, [facility] [place] [facility] [address] [facility] [id number], [place] [address] Mar, [facility] [address] [facility] [id number], [place] [id number] Mar, [facility] [address]00565100[place], [place] [address] Mar, [facility] [address] [place] [id number], [place] [id number] Mar, [facility] [place] [facility] [address]00565100[place], [place] [address] Mar, [facility] [address] [place] [id number], [place] [id number] Feb, [facility] [place] [facility] [address] [facility] [id number], [place] [address] Feb, [facility] [address] [facility] [id number], [place] [id number] Feb, [facility] [place] [facility] [address] [facility] [id number], [place] [address] Feb, [facility] [address] [facility] [id number], [place] [id number] Feb, [facility] [place] [facility] [address] [facility] [id number], [place] [address] Feb, [facility] [address] [facility] [id number], [place] [id number] Jan, [facility] [facility] [address] [facility] [id number], [place] [address] Jan, [facility] [address] [facility] [id number] [place] [id number] Jan, [facility] [place] [facility] [address] [facility] [id number], [place] [address] Jan, [facility] [address] [facility] [id number] [place] [id number] Sep, [facility] [place] [facility] [address] [facility] [id number] [place] [address] Sep, [facility] [place] [facility] [address] [facility] [id number] [place] [address] Sep, [facility] [address] [facility] [id number], [place] [id number] Sep, [facility] [place] [facility] [address]00565100[place], [place] [address] Sep, [facility] [facility] [address] [facility] [id number], [place] [address] Sep, [facility] [address] [facility] [id number], [place] [id number] Jul, [facility] [facility] [address] [facility] [id number], [place] [address] Jul, [facility] [address] [facility] [id number], [place] [id number] Jun, [facility] [place] [facility] [address] [facility] [id number], [place] [address] Jun, [facility] [address] [facility] [id number], [place] [id number] Jun, [facility] [place] [address] [facility] [id number], [place] [address] Jun, [facility] [address] [facility] [id number] [place] [id number] Apr, [facility] [address] [facility] [id number], [place] [address] Apr, [facility] [address] [id number] [place] [id number] Mar, [facility] [address] [facility] [id number], [place] [address] Mar, [facility] [address] [id number] [place] [id number] Mar, [facility] [address] [facility] [id number], [place] [address] Mar, [facility] [address] [id number] [place] [id number] Feb, [facility] [address] [facility] [id number], [place] [address] Feb, [facility] [address] [id number] [place] [id number] Jan, [facility] [id number], [place] [address] Jan, [facility] [address] [id number][place] [id number] Dec, [facility] [address] [facility] [id number], [place] [address] Dec, [facility] [address] [id number][place] [id number] Dec, [facility] [address] [id number][place] [id number] Dec, [facility] [address] [id number][place] [id number] Oct, [facility] [address] [facility] [id number], [place] [address] Oct, [facility] [address] [facility] [id number], [place] [address] Oct, [facility] [address] [id number] [place] [id number] Oct, [facility] [address] [id number], [place] [id number] Sep, [facility] [address] [id number] [place] [id number] August, [facility] [address] [id number] [place] [id number] August, [facility] [address] [id number] [place] [id number] August, [facility] [address] [id number] [place] [id number] Jul, [facility] [address] [facility] [id number], [place] [address] Jul, [facility] [address] [id number] [place] [id number] Jul, [facility] [address] [id number] [place] [id number] Jun, [facility] [id number], [place] [address] Jun, [facility] [address] [id number] [place] [id number] Jun, [facility] [address] [id number] [place] [id number] Jun, [facility] [address] [id number] [place] [id number] Jun, [facility] [address] [id number] [place] [id number] Jun, [facility] [address] [id number] [place] [id number] Jun, [facility] [address] [id number] [place] [id number] Feb, [facility] [address] [facility] [id number], [place] [address] Feb, [facility] [address] [id number] [place] [id number] Jan, [facility] [address] [id number] [place] [id number] Nov, [facility] [address] [id number] [place] [id number] Oct, [facility] [address] [facility] [id number] [place] [id number] Oct, [facility] [address] [facility] [id number] [place] [id number] Sep, [facility] [address] [facility] [id number] [place] [address] Mar, [facility] [address] [facility] [id number], [place] [address] Nov, IMMUNIZATIONS No Known Immunizations SOCIAL HISTORY Never Assessed REASON FOR VISIT PLAN OF CARE VITAL SIGNS MEDICATIONS Unknown [...] History cholecystectomy 1979 Hospitalization History [facility] for pneumonia 2012 Hospitalization History [facility] x 3 days for stomach flu 07/24/15 Hospitalization History [facility] for vomiting-given mag citrate for "blockage" 03/09/2016 Hospitalization History [facility]- Abhinav anxiety 04/20/2018
--- OUTSIDE RECORDS SUMMARY | 2018-10-08 13:23 | XMS REPORT ---
Author Author Migration, Doctor Organization [facility] Address Unknown Phone Unavailable Care Team Providers Care Outside Sales Representative Insurance Name Role Phone Migration, Doctor Unavailable Unavailable PROBLEMS Type Condition ICD9-CM Code [id number] Code Onset Dates Condition Status SNOMED Code Problem Female stress incontinence 625.6 Active 00865179 Problem Chronic rhinitis J31.0 Active 57174114 Problem Nondependent tobacco use disorder 305.1 Active 179816575 Problem Chronic airway obstruction, not elsewhere classified J44.9 Active 01608859 Problem Essential hypertension I10 Active 79000478 Problem Overactive bladder N32.81 Active 465376250 Problem Lung nodule R91.1 Active 914410251 Problem Kidney stone N20.0 Active 20140815 Problem Hereditary and idiopathic neuropathy, 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 Active 36405673 Problem Sciatica of left side M54.32 Active 94917079 Problem Bipolar II disorder F31.81 Active 73136573 Problem Acute exacerbation of chronic obstructive pulmonary disease (COPD) J44.1 Active 198414609 Problem Chronic bronchitis, unspecified chronic bronchitis type J42 Active 91925994 Problem CAP (community acquired pneumonia) J18.9 Active 018477799 Problem Back pain with left-sided radiculopathy M54.10 Active 922598323 Problem PTSD (post-traumatic stress disorder) F43.10 Active 30782043 Problem 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 [address] [facility] [id number], [place] [address] Sep, [facility] [address] [facility] [id number] [address] August, [facility] [address] [facility] [id number] [place] [id number] Jul, [facility] [address] [facility] [id number], [place] [address] Jul, Bipolar II disorder F31.81 [facility] [address] [id number] [place] [address] Jun, Morbid obesity E66.01 ; Chronic rhinitis J31.0 ; Essential hypertension I10 ; Chronic airway obstruction, not elsewhere classified J44.9 ; Acute cystitis without hematuria N30.00 and UTI (lower urinary tract infection) N39.0 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 [address]00565100[place] [address] May, Bipolar II disorder F31.81 [address]00565100[place] [id number] May, BMI 45.0-49.9, adult Z68.42 ; Chronic rhinitis J31.0 ; Chronic airway obstruction, not elsewhere classified J44.9 and Hereditary and idiopathic neuropathy, 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 [facility] [address] [facility] [id number] LAKE[place] [id number] May, [address]00565100[place] [id number] May, [facility] [address]00565100[place], [place] [address] May, Bipolar II disorder F31.81 and PTSD (post-traumatic stress disorder) F43.10 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 and PTSD (post-traumatic stress disorder) F43.10 [id number] [place] [address] [id number] Feb, Dysthymia F34.1 and BMI 45.0-49.9, adult Z68.42 [id number] [place] [address] [id number] Feb, Dysthymia F34.1 ; Chronic rhinitis J31.0 ; Strain of lumbar region, subsequent encounter S39.012D and BMI 45.0-49.9, adult Z68.42 [id number] [place] [address] [phone] Jan, Encounter for immunization Z23 [address] [id number] [place] [address] [id number] Jan, Dysthymia F34.1 [address] [id number] [place] [address] Jan, PTSD (post-traumatic stress disorder) F43.10 and 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 [id number] [place] [address] [id number] Jan, BMI 45.0-49.9, adult Z68.42 and PTSD (post-traumatic stress disorder) F43.10 [id number] [place] [address] [id number] Jan, BMI 45.0-49.9, adult Z68.42 and Chronic airway obstruction, not elsewhere classified J44.9 [id number] [place] [address] [id number] Dec, PTSD (post-traumatic stress disorder) F43.10 ; Chronic airway obstruction, not elsewhere classified J44.9 ; Dysthymia F34.1 and Thrush B37.0 [address] [place] [address] [id number] Nov, Dysthymia F34.1 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 [place] [address] [id number] [id number] Nov, BMI 45.0-49.9, adult Z68.42 ; Strain of lumbar region, subsequent encounter S39.012D ; PTSD (post-traumatic stress disorder) F43.10 and Dysthymia F34.1 [facility] [id number] [place] [address] [id number] Oct, [facility] [id number] [place] [address] [id number] Oct, Dysthymia F34.1 and PTSD (post-traumatic stress disorder) F43.10 [facility] [place] [address] [id number] [place] [address] [id number] Oct, BMI 45.0-49.9, adult Z68.42 ; Dysthymia F34.1 ; PTSD (post-traumatic stress disorder) F43.10 and Infective urethritis N34.2 [facility] [id number] [place] [address] [id number] Oct, Dysthymia F34.1 and PTSD (post-traumatic stress disorder) F43.10 [facility] [id number] [place] [address] [id number] Sep, Dysthymia F34.1 and PTSD (post-traumatic stress disorder) F43.10 [facility] [address]00565100[place] [id number] Sep, BMI 45.0-49.9, adult Z68.42 and Mood disorder F39 [facility] [address] [id number] [place]KE[place] [id number] Sep, [facility] [id number] [place] [address] [phone] Sep, Dysthymia F34.1 [facility] [address] [place] [address] [id number] Sep, Mood disorder F39 [facility] [address] [id number], [place] [id number] August, Dysthymia F34.1 [facility] [id number] [place] [address] [id number] August, Dysthymia F34.1 ; Chronic airway obstruction, not elsewhere classified J44.9 ; Back pain with left-sided radiculopathy M54.10 and BMI 45.0-49.9, adult Z68.42 [address] [place] [address] [id number] Jul, Urinary tract infection without hematuria, site unspecified N39.0 and Fatigue, unspecified type R53.83 [facility] [id number] [place] [address] [id number] Jul, Chronic airway obstruction, not elsewhere classified J44.[address] [id number] Jul, BMI 45.0-49.9, adult Z68.42 and Infective urethritis N34.2 [id number] [place] [address] [id number] Jul, [address] [id number] Jun, Back pain with left-sided radiculopathy M54.[address] [id number] May, Chronic airway obstruction, not elsewhere classified J44.9 and Encounter for immunization Z23 [address] [place] [address] [id number] Apr, BMI 45.0-49.9, adult Z68.42 ; Back pain with left-sided radiculopathy M54.10 ; Chronic airway obstruction, not elsewhere classified J44.9 and Dysthymia F34.1 [id number] [place] [address] [id number] Mar, Sciatica of left side M54.32 ; Back pain with left-sided radiculopathy M54.10 and Hereditary and idiopathic neuropathy, 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 [id number] [place] [address] [id number] Mar, Flank pain R10.9 ; Urinary urgency R39.15 and Chronic airway obstruction, not elsewhere classified J44.9 [facility] [id number] [place]KE[place] [id number] Mar, Dysthymia F34.1 [facility] [address] [id number], [place] [id number] Feb, [facility] [id number] [place] [address] Feb, [facility] [id number] [place] [address] [id number] Feb, Hematuria, unspecified type R31.9 ; Kidney stone N20.0 and BMI 40.0-44.9, adult Z68.41 [facility] [address] [place], [place] [id number], [place] [address] Feb, [facility] [address] [id number], [place] [id number] Feb, [facility] [id number] [place] [address] [id number] Feb, [facility] [id number] [place] [address] [id number] Feb, Dysthymia F34.1 ; Encounter for immunization Z23 ; Acute nasopharyngitis J00 ; Chronic rhinitis J31.0 and Chronic airway obstruction, not elsewhere classified J44.9 [facility] [address]00565100[place], [place] [address] Jan, Well woman exam Z01.419 ; Left breast lump N63.20 and BMI 40.0-44.9, adult Z68.41 [facility] [id number] [place]KE, [place] [id number] Jan, Muscle cramps R25.2 [facility] [id number] [place] [address] [id number] Dec, Dysthymia F34.1 [facility] [id number] [place] [address] [id number] Dec, Muscle cramps R25.2 [facility] [id number] [place] [address] [id number] Nov, Dysthymia F34.1 [facility] [id number] [place] [address] [id number] Oct, [facility] [id number] [place] [address] [id number] Oct, Chronic airway obstruction, not elsewhere classified J44.9 ; Moderate single current episode of major depressive disorder F32.1 ; Chronic rhinitis J31.0 and Muscle cramps R25.2 [facility] [id number] [place] [address] [id number] Sep, Acute nasopharyngitis J00 [facility] [id number] [place] [phone] Jun, Acute exacerbation of chronic obstructive pulmonary disease (COPD) J44.1 [facility] [id number] [place] [address] [id number] Jun, Acute nasopharyngitis J00 [facility] [id number] [place] [address] [id number] Jun, [facility] [id number] [place] [phone] Apr, [facility] [id number] [place] [address] [phone] Mar, Acute nasopharyngitis J00 [facility] [address] [place] [address] [id number] Mar, [facility] [id number] [place] [address] [id number] Mar, [facility] [id number] [place] [address] [id number] Feb, CAP (community acquired pneumonia) J18.9 and Chronic rhinitis J31.0 [facility] [id number] [place] [address] [id number] Feb, CAP (community acquired pneumonia) J18.9 [facility] [id number] [place] [address] [id number] Feb, CAP (community acquired pneumonia) J18.9 [facility] [id number] [place]KE, [place] [id number] Feb, [facility] [id number] [place] [address] [id number] Jan, Mood disorder F39 [facility] [address] [place] [address] Jan, [facility] [id number] [place] [address] [id number] Jan, Lung nodule R91.1 [facility] [id number] [place] [address] [id number] Jan, Lung nodule R91.1 [facility] [id number] [place] [address] [phone] Jan, Lung nodule R91.1 [facility] [id number] [place] [address] [id number] Jan, Lung nodule R91.1 [facility] [id number] [place] [address] [id number] Jan, [facility] [id number] [place] [address] [id number] Nov, Overactive bladder N32.81 ; Chronic airway obstruction, not elsewhere classified J44.9 and Essential hypertension I10 [facility] [id number] [place] [address] [id number] Oct, [place] [id number] [place] [address] [phone] Oct, Acute non-recurrent sinusitis, unspecified location J01.90 ; Cough R05 and Tobacco dependence F17.200 [facility] [id number] [place] [address] [id number] Sep, Overactive bladder N32.81 and Chronic airway obstruction, not elsewhere classified J44.9 [facility] [id number] [place] [address] [id number] August, Chronic airway obstruction, not elsewhere classified J44.9 ; Mood disorder F39 and Urinary frequency R35.0 [facility] [id number] [place] [address] [id number] August, [place] [address] [id number] [place], [place] [id number] Jul, Lung nodule R91.1 ; Chronic airway obstruction, not elsewhere classified J44.9 and Urinary tract infection without hematuria, site unspecified N39.0 [facility] [id number] [place] [id number] Jul, Lung nodule R91.1 [facility] [id number] [place] [address] [id number] Jul, [facility] [address] [id number] [place] [address] [id number] Jul, Diarrhea R19.7 and Lung nodule R91.1 [id number] [place] [address] [id number] Apr, Upper respiratory tract infection, unspecified type J06.9 and COPD exacerbation J44.1 [address] [place] [address] [id number] Mar, [address] [id number] [place] [address] [id number] Feb, Mood disorder F39 and Essential hypertension I10 [address] [id number] [place] [address] [id number] Jan, Essential hypertension I10 ; Mood disorder F39 ; Chronic airway obstruction, not elsewhere classified J44.9 and Chronic rhinitis J31.0 [address]00565100[place] [phone] Jan, [address] [id number][place] [id number] Jan, [facility] [place] [address] [facility] [id number], [place] [phone] Jan, [facility] [address]00565100[place] [phone] Jan, [facility] [address]00565100[place] [phone] Dec, Bronchitis [id number] [place] [address] [phone] Dec, [facility] [address] [facility] [id number] LAKE, [place] [id number] Sep, Rhinitis 472.0 [facility] [place] [facility] [address] [facility] [id number], [place] [address] Jul, [facility] [address] [facility] [id number], [place] [address] Jul, [facility] [address] [id number] [place], [place] [id number] Jun, [facility] [place] [address] [facility] [id number], [place] [address] Jun, [facility] [place] [address] [facility] [id number], [place] [address] Jun, [facility] [address] [facility] [id number] [place]KE[place] [phone] May, [facility] [address] [facility] [id number], [place] [address] May, [facility] [address] [facility] [id number] LAKE[place] [id number] Apr, [facility] [address] [facility] [id number], [place] [address] Apr, [facility] [address] [facility] [id number] LAKE[place] [id number] Mar, [facility] [address] [facility] [id number][place] [address] Mar, [facility] [address] [id number] [place]KE[place] [id number] Mar, [facility] [address] [facility] [id number][place] [address] Mar, [facility] [address] [facility] [id number] [place]KE[place] [id number] Mar, [facility] [address] [facility] [id number][place] [address] Mar, [facility] [address] [id number] [place] [id number] Mar, [facility] [address] [id number][place] [address] Mar, [facility] [address] [facility] [id number] [place] [id number] Feb, [facility] [address] [facility] [id number][place] [address] Feb, [facility] [address] [facility] [id number] [place] [id number] Feb, [facility] [place] [facility] [address] [facility] [id number] [place] [address] Feb, [facility] [address] [facility] [id number] [place] [id number] Feb, [facility] [address] [id number] [address] Feb, [facility] [address] [id number] [place]KE[place] [id number] Jan, [facility] [address] [facility] [id number][place] [address] Jan, [facility] [address] [facility] [id number] LAKE[place] [id number] Jan, [facility] [address] [facility] [id number][place] [address] Jan, [facility] [address] [facility] [id number] LAKE[place] [id number] Sep, [facility] [address] [facility] [id number][place] [address] Sep, [facility] [place] [facility] [address] [facility] [id number][place] [address] Sep, [facility] [address] [facility] [id number] [place]KE[place] [id number] Sep, [facility] [address] [facility] [id number][place] [address] Sep, [facility] [place] [address] [facility] [id number] [address] Sep, [facility] [address] [facility] [id number] [place] [id number] Jul, [facility] [place] [facility] [address] [facility] [id number] [place] [address] Jul, [facility] [address] [facility] [id number] [place] [id number] Jun, [facility] [place] [facility] [address] [facility] [id number] [address] Jun, [facility] [address] [facility] [id number] [place] [id number] Jun, [facility] [place] [facility] [address] [facility] [id number] [address] Jun, [facility] [address] [id number] [place] [id number] Apr, [facility] [place] [facility] [address] [facility] [id number] [address] Apr, [facility] [address] [facility] [id number] [place] [id number] Mar, [facility] [place] [facility] [address] [facility] [id number][place] [address] Mar, [facility] [address] [facility] [id number] [place] [id number] Mar, [facility] [place] [facility] [address] [facility] [id number] [address] Mar, [facility] [address] [facility] [id number] [place] [id number] Feb, [facility] [place] [facility] [address] [facility] [id number] [address] Feb, [facility] [address] [facility] [id number] [place]KE[place] [id number] Jan, [facility] [place] [facility] [address] [facility] [id number][place] [address] Jan, [facility] [address] [id number] [place] [id number] 30 Dec, 2012 [facility] [place] [facility] [address] [facility] [id number][place] [address] 16 Dec, 2012 [facility] [address] [id number] [place] [id number] Dec, [facility] [address] [id number] [place] [id number] Dec, [facility] [address] [id number] [place] [id number] Oct, [facility] [address] [facility] [id number] [place] [id number] Oct, [facility] [place] [facility] [address] [facility] [id number] [address] Oct, [facility] [address] [id number] [place]KE[place] [id number] Oct, [facility] [address] [id number] [place]KE[place] [id number] Sep, [facility] [address] [id number] [place] [id number] August, [facility] [address] [id number] [id number] August, [facility] [address] [id number] [place]KE[place] [phone] August, [facility] [address] [id number] [place] [id number] Jul, [facility] [address] [facility] [id number] [address] Jul, [facility] [address] [id number] [place]KE[place] [id number] Jul, [facility] [address] [id number] [place] [id number] Jun, [facility] [address] [facility] [id number] [address] Jun, [facility] [address] [id number] [place]KE[place] [id number] Jun, [facility] [address] [id number] [place] [id number] Jun, [facility] [id number] [place] [id number] Jun, [facility] [id number] [place] [id number] Jun, [facility] [id number] [place] [id number] Jun, [facility] [id number] [place] [phone] Feb, [facility] [id number] [place] [phone] Feb, [facility] [id number] [place] [phone] Jan, [facility] [id number] [place] [id number] Nov, [facility] [id number] [place] [id number] Oct, [facility] [id number] [place] [phone] Oct, [facility] [id number] [place] [id number] Sep, [facility] [id number] [place] [phone] Mar, [facility] [id number] [place] [phone] Nov, IMMUNIZATIONS No Known Immunizations SOCIAL HISTORY Never Assessed REASON FOR V[place]IT [facility] [place] VITAL SIGNS MEDICATIONS Unknown [...] Surgical History cholecystectomy 1979 Hospitalization History [facility] pneumonia 2012 Hospitalization History [facility] 3 days for stomach flu 07/24/15 Hospitalization History [facility]-given mag citrate for "blockage" 03/09/2016 Hospitalization History [facility] 04/20/2018
--- OUTSIDE RECORDS SUMMARY | 2018-10-08 13:23 | XMS REPORT ---
Author Author KATERINA SMITH [facility] Address [address] [place] [address] Care Team Providers Care Rotary Driller Helper Name Role Phone KATERINA SMITH Unavailable PROBLEMS Type Condition ICD9-CM Code SFL71-UX Code Onset Dates Condition Status SNOMED Code Problem Female stress incontinence 625.6 Active 40769838 Problem Chronic rhinitis J31.0 Active 49131740 Problem Nondependent tobacco use disorder 305.1 Active 833788717 Problem Chronic airway obstruction, not elsewhere classified J44.9 Active 19699732 Problem Essential hypertension I10 Active 90634773 Problem Overactive bladder N32.81 Active 911239825 Problem Lung nodule R91.1 Active 145775616 Problem Kidney stone N20.0 Active 18507059 Problem Hereditary and idiopathic neuropathy, 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 Active 03687091 Problem Sciatica of left side M54.32 Active 81892361 Problem Bipolar II disorder F31.81 Active 19771143 Problem Acute exacerbation of chronic obstructive pulmonary disease (COPD) J44.1 Active 165280975 Problem Chronic bronchitis, unspecified chronic bronchitis type J42 Active 39153386 Problem CAP (community acquired pneumonia) J18.9 Active 564924805 Problem Back pain with left-sided radiculopathy M54.10 Active 767755491 Problem PTSD (post-traumatic stress disorder) F43.10 Active 78864750 Problem 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 [id number][place] [id number] August, [facility] [address] [facility] [id number], [place] [id number] August, [facility] [address] [facility] [id number][place] [id number] August, [facility] [address] [facility] [id number], [place] [id number] August, [place] [address]005[address]100[place], [place] [address] August, Bipolar II disorder F31.81 [facility] [address] [facility] [id number], [place] [id number] Jul, Morbid obesity E66.01 ; Chronic bronchitis, unspecified chronic bronchitis type J42 ; Bipolar II disorder F31.81 ; Chronic rhinitis J31.0 and PTSD (post- traumatic stress disorder) F43.10 [place] [address] [id number], [place] [address] Jul, Bipolar II disorder F31.81 [place] [id number] [address]37859 Jun, Morbid obesity E66.01 ; Chronic rhinitis J31.0 ; Essential hypertension I10 ; Chronic airway obstruction, not elsewhere classified J44.9 ; Acute cystitis without hematuria N30.00 and UTI (lower urinary tract infection) N39.0 [place] [address] [id number], [place] [address] Jun, Bipolar II disorder F31.81 ; 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 and PTSD (post-traumatic stress disorder) F43.10 [facility] [address] [id number], [place] [id number] Jun, [facility] [address] [id number], [place] [id number] Jun, Hereditary and idiopathic neuropathy, 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 [facility] [address] [id number], [place] [id number] Jun, [facility] [address] [id number], [place] [address] May, Bipolar II disorder F31.81 [place] [id number] 7839[address]572 May, BMI 45.0-49.9, adult Z68.42 ; Chronic rhinitis J31.0 ; Chronic airway obstruction, not elsewhere classified J44.9 and Hereditary and idiopathic neuropathy, 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 [address]00565100[place] [id number] May, [address] [place] [address] [id number] May, [place] [address] [id number] [place] [address] May, Bipolar II disorder F31.81 and PTSD (post-traumatic stress disorder) F43.10 [place] [address] [place] [address] May, Bipolar II disorder F31.81 ; 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 and PTSD (post-traumatic stress disorder) F43.10 [place] [id number], [place] [id number] Apr, BMI 45.0-49.9, adult Z68.42 ; Bipolar II disorder F31.81 and Chronic bronchitis, unspecified chronic bronchitis type J42 [address] [id number], [place] [id number] Apr, Dysthymia F34.[id number] [place] [address] [id number] Apr, [address] [id number], [place] [id number] Apr, BMI 45.0-49.9, adult Z68.42 ; Bipolar II disorder F31.81 and Acute cystitis without hematuria N30.00 [place] [address] [place] [address] Apr, Bipolar II disorder F31.81 ; 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 and PTSD (post-traumatic stress disorder) F43.10 [facility] [place] [id number], [place] [id number] Mar, [facility] [place] [address] [place] [id number] [place] [address] [id number] Mar, Dysthymia F34.1 [facility] [place] [address] [id number] [place] [address] [id number] Mar, BMI 45.0-49.9, adult Z68.42 ; Bipolar II disorder F31.81 ; Dysthymia F34.1 and Intertrigo L30.4 [facility] [address] [place] [address] Mar, Bipolar II disorder F31.81 ; 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 and PTSD (post-traumatic stress disorder) F43.10 [facility] [address] [id number] [place] [address] [id number] Feb, Dysthymia F34.1 and BMI 45.0-49.9, adult Z68.42 [facility] [id number] [place] [place] [address] [id number] Feb, Dysthymia F34.1 ; Chronic rhinitis J31.0 ; Strain of lumbar region, subsequent encounter S39.012D and BMI 45.0-49.9, adult Z68.42 [facility] [id number] [place] [address] [id number] Jan, Encounter for immunization Z23 [facility] [address] [id number] [place] [place] [address] [id number] Jan, Dysthymia F34.1 [facility] [address] [place] [address] [id number], [place] [address] Jan, PTSD (post-traumatic stress disorder) F43.10 and 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 [id number], [place] 38[address]65[address] Jan, BMI 45.0-49.9, adult Z68.42 and Chronic airway obstruction, not elsewhere classified J44.9 [facility] [place] [id number], [place] 314022548 Dec, PTSD (post-traumatic stress disorder) F43.10 ; Chronic airway obstruction, not elsewhere classified J44.9 ; Dysthymia F34.1 and Thrush B37.0 [facility] [id number], [place] [id number] Nov, Dysthymia F34.1 [facility] [address]00565100[place], [place] [address] Nov, PTSD (post-traumatic stress disorder) F43.10 and 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 [place] [address] [id number] Nov, BMI 45.0-49.9, adult Z68.42 ; Strain of lumbar region, subsequent encounter S39.012D ; PTSD (post-traumatic stress disorder) F43.10 and Dysthymia F34.[address] [place] [address] [id number] Oct, [address] [place] [address] [id number] Oct, Dysthymia F34.1 and PTSD (post-traumatic stress disorder) F43.10 [place] [id number], [place] 639694482 Oct, BMI 45.0-49.9, adult Z68.42 ; Dysthymia F34.1 ; PTSD (post-traumatic stress disorder) F43.10 and Infective urethritis N34.2 [facility] [address] [id number], [place] [address]64255554 Oct, Dysthymia F34.1 and PTSD (post-traumatic stress disorder) F43.10 [facility] [address] [id number], [place] [id number] Sep, Dysthymia F34.1 and PTSD (post-traumatic stress disorder) F43.10 [facility] [place] [address] [place] [address] [id number] [place] [address] [id number] Sep, BMI 45.0-49.9, adult Z68.42 and Mood disorder F39 [facility] [place] [id number] [place] [address] [id number] Sep, [facility] [address] [place] [address] [id number][place] [id number] Sep, Dysthymia F34.1 [facility] [address] [place] [address] [id number] Sep, Mood disorder F39 [facility] [address] [place] [id number] [place] [address] [id number] August, Dysthymia F34.1 [facility] [place] [id number] [place] [address] [id number] August, Dysthymia F34.1 ; Chronic airway obstruction, not elsewhere classified J44.9 ; Back pain with left-sided radiculopathy M54.10 and BMI 45.0-49.9, adult Z68.42 [facility] [place] [id number] [place] [address] [id number] Jul, Urinary tract infection without hematuria, site unspecified N39.0 and Fatigue, unspecified type R53.83 [facility] [address] [place] [address] [id number] Jul, Chronic airway obstruction, not elsewhere classified J44.9 [facility] [address] [place] [address] [id number] Jul, BMI 45.0-49.9, adult Z68.42 and Infective urethritis N34.2 [facility] [address] [place] [address] [id number] Jul, [facility] [address]00565100[place], [place] [address]45586031 Jun, Back pain with left-sided radiculopathy M54.10 [facility] [place] [id number] [id number] 13 May, 2017 Chronic airway obstruction, not elsewhere classified J44.9 and Encounter for immunization Z23 [facility] [address] [place] [address] [id number] [place] [address] [id number] Apr, BMI 45.0-49.9, adult Z68.42 ; Back pain with left-sided radiculopathy M54.10 ; Chronic airway obstruction, not elsewhere classified J44.9 and Dysthymia F34.1 [facility] [id number], [place] [id number] Mar, Sciatica of left side M54.32 ; Back pain with left-sided radiculopathy M54.10 and Hereditary and idiopathic neuropathy, 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 [facility] [id number] [place] [place] [address] [id number] Mar, Flank pain R10.9 ; Urinary urgency R39.15 and Chronic airway obstruction, not elsewhere classified J44.9 [facility] [id number], [place] [id number] Mar, Dysthymia F34.1 [facility] [address] [id number], [place] [id number] Feb, [facility] [address] [place] [address] [id number], [place] [address] Feb, [facility] [address] [place] [id number], [place] [id number] Feb, Hematuria, unspecified type R31.9 ; Kidney stone N20.0 and BMI 40.0-44.9, adult Z68.41 [facility] [address] [facility] [id number], [place] [address] Feb, [facility] [address] [id number], [place] [id number] Feb, [facility] [address] [place] [id number], [place] [id number] Feb, [facility] [id number] [place] [place] [address] [id number] Feb, Dysthymia F34.1 ; Encounter for immunization Z23 ; Acute nasopharyngitis J00 ; Chronic rhinitis J31.0 and Chronic airway obstruction, not elsewhere classified J44.9 [facility] [address] [address] Jan, Well woman exam Z01.419 ; Left breast lump N63.20 and BMI 40.0-44.9, adult Z68.41 [facility] [address] [id number] Jan, Muscle cramps R25.2 [facility] [address] [id number] Dec, Dysthymia F34.1 [facility] [address] [id number] Dec, Muscle cramps R25.2 [facility] [address] [id number] Nov, Dysthymia F34.1 [facility] [address] [id number] Oct, [facility] [address] [id number] Oct, Chronic airway obstruction, not elsewhere classified J44.9 ; Moderate single current episode of major depressive disorder F32.1 ; Chronic rhinitis J31.0 and Muscle cramps R25.2 [facility] [address] [id number] Sep, Acute nasopharyngitis J00 [facility] [address] [place] [address] Jun, Acute exacerbation of chronic obstructive pulmonary disease (COPD) J44.1 [facility] [address] [id number] Jun, Acute nasopharyngitis J00 [facility] [address] [id number] Jun, [facility] [address] [address] Apr, [facility] [id number], [place] [id number] Mar, Acute nasopharyngitis J00 [facility] [id number], [place] [id number] Mar, [facility] [id number], [place] [id number] Mar, [facility] [address] [place] [id number] [place] [address] [id number] Feb, CAP (community acquired pneumonia) J18.9 and Chronic rhinitis J31.0 [facility] [address] [place] [id number] [place] [address] [id number] Feb, CAP (community acquired pneumonia) J18.9 [facility] [id number] [place] [place] [address] [id number] Feb, CAP (community acquired pneumonia) J18.9 [facility] [id number] [place] [place] [address] [id number] Feb, [facility] [id number] [place] [address] [id number] Jan, Mood disorder F39 [facility] [address]00565100[place], [place] [address] Jan, [facility] [id number] [place] [place] [address] [id number] Jan, Lung nodule R91.1 [facility] [id number], [place] [id number] Jan, Lung nodule R91.1 [facility] [id number], [place] 139895833 Jan, Lung nodule R91.1 [facility] [id number], [place] 214103448 Jan, Lung nodule R91.1 [facility] [id number], [place] 885389709 Jan, [facility] [id number] [place] [address] [id number] Nov, Overactive bladder N32.81 ; Chronic airway obstruction, not elsewhere classified J44.9 and Essential hypertension I10 [place] [id number] [place] [place] [address] [id number] Oct, [address] [id number] Oct, Acute non-recurrent sinusitis, unspecified location J01.90 ; Cough R05 and Tobacco dependence F17.[address] [id number] Sep, Overactive bladder N32.81 and Chronic airway obstruction, not elsewhere classified J44.[address] [id number] August, Chronic airway obstruction, not elsewhere classified J44.9 ; Mood disorder F39 and Urinary frequency R35.[address] [id number] August, [address] [id number] Jul, Lung nodule R91.1 ; Chronic airway obstruction, not elsewhere classified J44.9 and Urinary tract infection without hematuria, site unspecified N39.[address] [id number] Jul, Lung nodule R91.[address] [id number] Jul, [address] [id number] Jul, Diarrhea R19.7 and Lung nodule R91.[address] [id number] Apr, Upper respiratory tract infection, unspecified type J06.9 and COPD exacerbation J44.[address] [id number] Mar, [address] [id number] Feb, Mood disorder F39 and Essential hypertension I10 [address] [place] 375140385 Jan, Essential hypertension I10 ; Mood disorder F39 ; Chronic airway obstruction, not elsewhere classified J44.9 and Chronic rhinitis J31.0 [facility] [place] [id number], [place] 756317262 Jan, [facility] [address] [id number], [place] 955606955 Jan, [facility] [place] [address] [facility] [id number], [place] [id number] Jan, [facility] [place] [address] [facility] [id number], [place] [id number] Jan, [facility] [id number], [place] 985144201 Dec, [facility] [id number], [place] 902365229 Dec, [facility] [id number], [place] 670640937 Sep, Rhinitis 472.0 [facility] [address] [id number] [place] [address] Jul, [facility] [address] [place] [address] Jul, [facility] [id number], [place] [id number] Jun, [facility] [place] [facility] [id number] [place] [address] Jun, [facility] [place] [facility] [address] [place] [address] Jun, [facility] [place] [id number], [place] [id number] May, [facility] [place] [facility] [address] [id number], [place] [address] May, [facility] [address] [place] [address] [id number], [place] [id number] Apr, [facility] [place] [facility] [address] [id number], [place] [address] Apr, [facility] [place] [address] [facility] [id number], [place] [id number] Mar, [facility] [place] [facility] [address] [facility] [id number], [place] [address] Mar, [facility] [place] [address] [facility] [id number], [place] [id number] Mar, [facility] [place] [facility] [address] [facility] [id number], [place] [address] Mar, [facility] [place] [address] [facility] [id number], [place] [id number] Mar, [facility] [place] [facility] [address] [facility] [id number], [place] [address] Mar, [facility] [place] [address] [place] [address] [id number], [place] [id number] Mar, [facility] [place] [facility] [address]00565100[place], [place] [address] Mar, [facility] [place] [address] [facility] [id number], [place] [id number] Feb, [facility] [place] [facility] [address]00565100[place], [place] [address] Feb, [facility] [place] [address] [facility] [id number], [place] [id number] Feb, [facility] [place] [facility] [address] [facility] [id number], [place] [address] Feb, [facility] [place] [address] [facility] [id number], [place] [id number] Feb, [facility] [place] [facility] [address] [facility] [id number], [place] [address] Feb, [facility] [place] [address] [facility] [id number], [place] [id number] Jan, [facility] [place] [facility] [address] [facility] [id number], [place] [address] Jan, [facility] [place] [address] [id number] [place] [id number] Jan, [facility] [place] [facility] [address] [facility] [id number] [place] [address] Jan, [facility] [place] [address] [id number] [place] [id number] Sep, [facility] [place] [facility] [address] [facility] [id number] [place] [address] Sep, [facility] [place] [facility] [address] [id number] [place] [address] Sep, [facility] [place] [address] [id number] [place] [id number] Sep, [facility] [place] [facility] [address] [facility] [id number] [place] [address] Sep, [facility] [place] [facility] [address] [facility] [id number] [place] [address] Sep, [facility] [place] [address] [facility] [id number], [place] [id number] Jul, [facility] [place] [facility] [address] [facility] [id number] [place] [address] Jul, [facility] [place] [address] [facility] [id number], [place] [id number] Jun, [facility] [place] [facility] [address] [facility] [id number], [place] [address] Jun, [facility] [place] [address] [facility] [id number], [place] [id number] Jun, [facility] [place] [facility] [address] [facility] [id number] [place] [address] Jun, [facility] [place] [address] [facility] [id number], [place] [id number] Apr, [facility] [place] [facility] [address] [facility] [id number] [place] [address] Apr, [facility] [place] [address] [facility] [id number], [place] [id number] Mar, [facility] [address] [facility] [id number], [place] [address] Mar, [facility] [place] [address] [id number], [place] [id number] Mar, [facility] [address] [facility] [id number], [place] [address] Mar, [facility] [address] [id number][place] [id number] Feb, [facility] [address] [facility] [id number], [place] [address] Feb, [facility] [address] [id number] [id number] Jan, [facility] [address] [facility] [id number], [place] [address] Jan, [facility] [address] [id number][place] [id number] Dec, [facility] [address] [facility] [id number], [place] [address] Dec, [facility] [address] [id number][place] [id number] Dec, [facility] [address] [id number] [id number] Dec, [facility] [address] [id number][place] [id number] Oct, [facility] [address] [facility] [id number], [place] [address] Oct, [facility] [address] [facility] [id number], [place] [address] Oct, [facility] [address] [id number][place] [id number] Oct, [facility] [address] [id number][place] [id number] Sep, [facility] [address] [id number][place] [id number] August, [facility] [address] [id number] [place] [id number] August, [facility] [address] [id number] [place] [id number] August, [facility] [address] [id number] [place] [id number] Jul, [facility] [address] [facility] [id number], [place] [address] Jul, [facility] [address] [id number] [place] [id number] Jul, [facility] [address] [id number] [place] [id number] Jun, [facility] [address] [facility] [id number], [place] [address] Jun, [facility] [address] [id number] [place] [id number] Jun, [facility] [address] [id number] [place] [id number] Jun, [facility] [address] [id number] [place] [id number] Jun, [facility] [address] [id number] [place] [id number] Jun, [facility] [address] [id number] [place] [id number] Jun, [facility] [address] [id number] [place] [id number] Feb, [facility] [address] [facility] [id number], [place] [address] Feb, [facility] [address] [id number] [place] [id number] Jan, [facility] [address] [id number] [place] [id number] Nov, [facility] [address] [id number] [place] [id number] Oct, [facility] [address] [id number] [place] [id number] Oct, [facility] [address] [id number] [place] [id number] Sep, [facility] [address] [facility] [id number] [place] [address] Mar, [facility] [address] [facility] [id number] [place] [address] Nov, IMMUNIZATIONS No Known Immunizations SOCIAL HISTORY Never Assessed REASON FOR VISIT PA PLAN OF CARE VITAL SIGNS MEDICATIONS Medication Instructions Dosage Frequency Start Date End Date Duration Status Cymbalta 30 MG Orally Once a day for a week then twice a day 1 capsule Jun, 30 day(s) Active RESULTS No Results PROCEDURES No Known procedures INSTRUCTIONS MEDICATIONS ADMINISTERED No Known Medications MEDICAL (GENERAL) HISTORY Type Description Date Medical History hypertension Medical History allergies Medical History chronic obstructive pulmonary disease (COPD) Medical History anxiety Medical History sciatica Medical History acid reflux Medical History Pneumococcal inj (2012) Medical History depression Surgical History cholecystectomy 1979 Hospitalization History [facility] 2012 Hospitalization History [facility] x 3 days for stomach flu 07/24/15 Hospitalization History [facility]-given mag citrate for "blockage" 03/09/2016 Hospitalization History [facility]- [place] anxiety 04/20/2018
--- OUTSIDE RECORDS SUMMARY | 2018-10-08 13:24 | XMS REPORT ---
Author Author Migration, Doctor Organization [facility] Address Unknown Phone Unavailable Care Team Providers Care Chief Controller Tower Name Role Phone Migration, Doctor Unavailable Unavailable PROBLEMS Type Condition ICD9-CM Code [id number] Code Onset Dates Condition Status SNOMED Code Problem Female stress incontinence 625.6 Active 23044244 Problem Chronic rhinitis J31.0 Active 10020635 Problem Nondependent tobacco use disorder 305.1 Active 957284314 Problem Chronic airway obstruction, not elsewhere classified J44.9 Active 86606198 Problem Essential hypertension I10 Active 14215507 Problem Overactive bladder N32.81 Active 590952911 Problem Lung nodule R91.1 Active 180823768 Problem Kidney stone N20.0 Active 45167564 Problem Hereditary and idiopathic neuropathy, 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 Active 04010239 Problem Sciatica of left side M54.32 Active 79789496 Problem Bipolar II disorder F31.81 Active 91105718 Problem Acute exacerbation of chronic obstructive pulmonary disease (COPD) J44.1 Active 282216807 Problem Chronic bronchitis, unspecified chronic bronchitis type J42 Active 94714442 Problem CAP (community acquired pneumonia) J18.9 Active 797675191 Problem Back pain with left-sided radiculopathy M54.10 Active 578596811 Problem PTSD (post-traumatic stress disorder) F43.10 Active 91859353 Problem 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 40127913 Problem Dysthymia F34.1 Active 77528898 ALLERGIES No Information ENCOUNTERS Encounter Location Date Diagnosis [facility] [address] [facility] [id number] [address] Sep, [facility] [address] [facility] [id number] [address] August, [facility] [address] [facility] [id number] [id number] Jul, [facility] [address] [facility] [id number] [address] Jul, Bipolar II disorder F31.81 [facility] [address] [id number] [address] Jun, Morbid obesity E66.01 ; Chronic rhinitis J31.0 ; Essential hypertension I10 ; Chronic airway obstruction, not elsewhere classified J44.9 ; Acute cystitis without hematuria N30.00 and UTI (lower urinary tract infection) N39.0 [facility] [address] [address] Jun, Bipolar II disorder F31.81 ; 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 and PTSD (post-traumatic stress disorder) F43.10 [facility] [address] [id number], [place] [id number] Jun, [facility] [address] [id number][place] [address] Jun, Hereditary and idiopathic neuropathy, 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 [facility] [address] [id number], [place] [id number] Jun, [facility] [address] [address] May, Bipolar II disorder F31.81 [address]65[address] [address] May, BMI 45.0-49.9, adult Z68.42 ; Chronic rhinitis J31.0 ; Chronic airway obstruction, not elsewhere classified J44.9 and Hereditary and idiopathic neuropathy, 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 [facility] [address] [facility] [id number][place] [address] May, [address]00565100[place] [address] May, [facility] [address] [address] May, Bipolar II disorder F31.81 and PTSD (post-traumatic stress disorder) F43.10 [facility] [address] [id number], [place] [address] May, Bipolar II disorder F31.81 ; 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 and PTSD (post-traumatic stress disorder) F43.[address] [address] Apr, BMI 45.0-49.9, adult Z68.42 ; Bipolar II disorder F31.81 and Chronic bronchitis, unspecified chronic bronchitis type J42 [address] [id number], [place] [address]180[address] Apr, Dysthymia F34.[address] [place] [address] [id number] Apr, [address] [address] Apr, BMI 45.0-49.9, adult Z68.42 ; Bipolar II disorder F31.81 and Acute cystitis without hematuria N30.00 [facility] [address] [address] Apr, Bipolar II disorder F31.81 ; 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 and PTSD (post-traumatic stress disorder) F43.10 [address]100[place], [place] [address] Mar, [address] [place] [address] [id number] Mar, Dysthymia F34.[address] [place] [address] [id number] Mar, BMI 45.0-49.9, adult Z68.42 ; Bipolar II disorder F31.81 ; Dysthymia F34.1 and Intertrigo L30.4 [facility] [address]005[address]100[place] [address] Mar, Bipolar II disorder F31.81 ; 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 and PTSD (post-traumatic stress disorder) F43.10 [id number] [place] [address] [id number] Feb, Dysthymia F34.1 and BMI 45.0-49.9, adult Z68.42 [id number] [place] [address] [id number] Feb, Dysthymia F34.1 ; Chronic rhinitis J31.0 ; Strain of lumbar region, subsequent encounter S39.012D and BMI 45.0-49.9, adult Z68.42 [id number] [place] [address] [id number] Jan, Encounter for immunization Z23 [id number] [place] [address] [id number] Jan, Dysthymia F34.1 [id number] [place] [address] Jan, PTSD (post-traumatic stress disorder) F43.10 and 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 [id number] [place] [address] [id number] Jan, BMI 45.0-49.9, adult Z68.42 and PTSD (post-traumatic stress disorder) F43.10 [id number] [place] [address] [id number] Jan, BMI 45.0-49.9, adult Z68.42 and Chronic airway obstruction, not elsewhere classified J44.9 [id number] [place] [address] [id number] Dec, PTSD (post-traumatic stress disorder) F43.10 ; Chronic airway obstruction, not elsewhere classified J44.9 ; Dysthymia F34.1 and Thrush B37.[address] [place] [address] [id number] Nov, Dysthymia F34.1 [facility] [address] [place] [address] Nov, PTSD (post-traumatic stress disorder) F43.10 and 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 [id number] [id number] Nov, BMI 45.0-49.9, adult Z68.42 ; Strain of lumbar region, subsequent encounter S39.012D ; PTSD (post-traumatic stress disorder) F43.10 and Dysthymia F34.1 [facility] [id number] [place] [address] [id number] Oct, [facility] [id number] [place] [address] [id number] Oct, Dysthymia F34.1 and PTSD (post-traumatic stress disorder) F43.10 [facility] [place] [id number] [place] [address] [id number] Oct, BMI 45.0-49.9, adult Z68.42 ; Dysthymia F34.1 ; PTSD (post-traumatic stress disorder) F43.10 and Infective urethritis N34.[address] [facility] [id number] [place] [address] [id number] Oct, Dysthymia F34.1 and PTSD (post-traumatic stress disorder) F43.[address] [facility] [id number] [place] [address] [id number] Sep, Dysthymia F34.1 and PTSD (post-traumatic stress disorder) F43.10 [facility] [address]00565100[place] [address]22[address]85 Sep, BMI 45.0-49.9, adult Z68.42 and Mood disorder F39 [facility] [place] [id number], [place] [id number] Sep, [facility] [id number] [place] [address] [id number] Sep, Dysthymia F34.1 [facility] [address] [place] [address] [id number] Sep, Mood disorder F39 [facility] [address] [id number], [place] [id number] August, Dysthymia F34.1 [facility] [id number] [place] [address] [id number] August, Dysthymia F34.1 ; Chronic airway obstruction, not elsewhere classified J44.9 ; Back pain with left-sided radiculopathy M54.10 and BMI 45.0-49.9, adult Z68.[address] [place] [address] [id number] Jul, Urinary tract infection without hematuria, site unspecified N39.0 and Fatigue, unspecified type R53.83 [facility] [id number] [place] [address] [id number] Jul, Chronic airway obstruction, not elsewhere classified J44.[address] [id number] Jul, BMI 45.0-49.9, adult Z68.42 and Infective urethritis N34.2 [id number] [place] [address] [id number] Jul, [address] [id number] Jun, Back pain with left-sided radiculopathy M54.[address] [id number] May, Chronic airway obstruction, not elsewhere classified J44.9 and Encounter for immunization Z23 [address] [place] [address] [id number] Apr, BMI 45.0-49.9, adult Z68.42 ; Back pain with left-sided radiculopathy M54.10 ; Chronic airway obstruction, not elsewhere classified J44.9 and Dysthymia F34.1 [id number] [place] [address] [id number] Mar, Sciatica of left side M54.32 ; Back pain with left-sided radiculopathy M54.10 and Hereditary and idiopathic neuropathy, 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 [id number] [place] [address] [id number] Mar, Flank pain R10.9 ; Urinary urgency R39.15 and Chronic airway obstruction, not elsewhere classified J44.9 [facility] [id number], [place] [id number] Mar, Dysthymia F34.1 [facility] [address] [facility] [address] [id number], [place] [id number] Feb, [facility] [id number] [place] [address] Feb, [facility] [id number] [place] [address] [id number] Feb, Hematuria, unspecified type R31.9 ; Kidney stone N20.0 and BMI 40.0-44.9, adult Z68.41 [facility] [address] [place], [id number], [place] [address] Feb, [facility] [address] [facility] [address] [id number], [place] [id number] Feb, [facility] [id number] [place] [address] [id number] Feb, [facility] [id number] [place] [address] [id number] Feb, Dysthymia F34.1 ; Encounter for immunization Z23 ; Acute nasopharyngitis J00 ; Chronic rhinitis J31.0 and Chronic airway obstruction, not elsewhere classified J44.9 [facility] [address]005[address]100[place] [address] Jan, Well woman exam Z01.419 ; Left breast lump N63.20 and BMI 40.0-44.9, adult Z68.41 [facility] [id number], [place] [id number] Jan, Muscle cramps R25.2 [facility] [id number] [place] [address] [id number] Dec, Dysthymia F34.1 [facility] [id number] [place] [address] [id number] Dec, Muscle cramps R25.2 [facility] [id number] [place] [address] [id number] Nov, Dysthymia F34.1 [facility] [id number] [place] [address] [id number] Oct, [facility] [id number] [place] [address] [id number] Oct, Chronic airway obstruction, not elsewhere classified J44.9 ; Moderate single current episode of major depressive disorder F32.1 ; Chronic rhinitis J31.0 and Muscle cramps R25.2 [facility] [id number] [place] [address] [id number] Sep, Acute nasopharyngitis J00 [facility] [id number] [place] [address] Jun, Acute exacerbation of chronic obstructive pulmonary disease (COPD) J44.1 [facility] [id number] [place] [address] [id number] Jun, Acute nasopharyngitis J00 [facility] [id number] [place] [address] [id number] Jun, [facility] [id number] [place] [address] Apr, [facility] [id number] [place] [address] [id number] Mar, Acute nasopharyngitis J00 [facility] [address] [place] [address] [id number] Mar, [facility] [id number] [place] [address] [id number] Mar, [facility] [id number] [place] [address] [id number] Feb, CAP (community acquired pneumonia) J18.9 and Chronic rhinitis J31.0 [facility] [id number] [place] [address] [id number] Feb, CAP (community acquired pneumonia) J18.9 [facility] [id number] [place] [address] [id number] Feb, CAP (community acquired pneumonia) J18.9 [facility] [id number], [place] [id number] Feb, [facility] [id number] [place] [address] [id number] Jan, Mood disorder F39 [facility] [address] [place] [address] Jan, [facility] [id number] [place] [address] [id number] Jan, Lung nodule R91.1 [facility] [id number] [place] [address] [id number] Jan, Lung nodule R91.1 [facility] [id number] [place] [address] [id number] Jan, Lung nodule R91.1 [facility] [id number] [place] [address] [id number] Jan, Lung nodule R91.1 [facility] [id number] [place] [address] [id number] Jan, [facility] [id number] [place] [address] [id number] Nov, Overactive bladder N32.81 ; Chronic airway obstruction, not elsewhere classified J44.9 and Essential hypertension I10 [facility] [id number] [place] [address] [phone] Oct, [place] [id number] [place] [address] [id number] Oct, Acute non-recurrent sinusitis, unspecified location J01.90 ; Cough R05 and Tobacco dependence F17.200 [facility] [id number] [place] [address] [id number] Sep, Overactive bladder N32.81 and Chronic airway obstruction, not elsewhere classified J44.9 [facility] [id number] [place] [address] [id number] August, Chronic airway obstruction, not elsewhere classified J44.9 ; Mood disorder F39 and Urinary frequency R35.0 [facility] [id number] [place] [address] [id number] August, [place] [address] [id number], [place] [id number] Jul, Lung nodule R91.1 ; Chronic airway obstruction, not elsewhere classified J44.9 and Urinary tract infection without hematuria, site unspecified N39.0 [facility] [id number], [place] [id number] Jul, Lung nodule R91.1 [facility] [place] [id number] [place] [address] [id number] Jul, [facility] [address] [id number] [place] [address] [id number] Jul, Diarrhea R19.7 and Lung nodule R91.1 [id number] [place] [address] [id number] Apr, Upper respiratory tract infection, unspecified type J06.9 and COPD exacerbation J44.[address] [place] [address] [id number] Mar, [id number] [place] [address] [id number] Feb, Mood disorder F39 and Essential hypertension I10 [address] [place] [id number] [place] [address] [id number] Jan, Essential hypertension I10 ; Mood disorder F39 ; Chronic airway obstruction, not elsewhere classified J44.9 and Chronic rhinitis J31.0 [address] [id number] Jan, [address] [id number], [place] [id number] Jan, [facility] [place] [address] [facility] [id number], [place] [id number] Jan, [facility] [address]00565100[place], [place] [id number] Jan, [facility] [address]00565100[place], [place] [id number] Dec, Bronchitis [id number] [place] [address] [id number] Dec, [facility] [address] [facility] [id number], [place] 9969250[address] Sep, Rhinitis 472.0 [facility] [place] [facility] [address] [facility] [id number], [place] [address] Jul, [facility] [place] [facility] [address] [facility] [id number][place] [address] Jul, [facility] [address] [id number], [place] [id number] Jun, [facility] [place] [facility] [address] [facility] [id number][place] [address] Jun, [facility] [place] [facility] [address] [facility] [id number][place] [address] Jun, [facility] [address] [facility] [id number], [place] [id number] May, [facility] [place] [facility] [address] [facility] [id number], [place] [address] May, [facility] [address] [facility] [id number], [place] [id number] Apr, [facility] [place] [facility] [address] [facility] [id number][place] [address] Apr, [facility] [address] [facility] [id number], [place] [id number] Mar, [facility] [place] [facility] [address] [facility] [id number][place] [address] Mar, [facility] [address] [id number], [place] [id number] Mar, [facility] [place] [facility] [address] [facility] [id number][place] [address] Mar, [facility] [address] [facility] [id number], [place] [id number] Mar, [facility] [place] [facility] [address] [facility] [id number] [address] Mar, [facility] [address] [id number] [place] [id number] Mar, [facility] [place] [facility] [address] [id number][place] [address] Mar, [facility] [address] [facility] [id number] [place] [id number] Feb, [facility] [place] [facility] [address] [facility] [id number][place] [address] Feb, [facility] [address] [facility] [id number] [place] [id number] Feb, [facility] [place] [facility] [address] [facility] [id number] [place] [address] Feb, [facility] [address] [facility] [id number] [place] [id number] Feb, [facility] [place] [facility] [address] [id number] [address] Feb, [facility] [address] [id number], [place] [id number] Jan, [facility] [place] [facility] [address] [facility] [id number], [place] [address] Jan, [facility] [address] [facility] [id number], [place] 055812865 Jan, [facility] [place] [facility] [address] [facility] [id number][place] [address] Jan, [facility] [address] [facility] [id number], [place] 965625036 Sep, [facility] [place] [facility] [address] [facility] [id number][place] [address] Sep, [facility] [place] [facility] [address] [facility] [id number][place] [address] Sep, [facility] [address] [facility] [id number], [place] 059391090 Sep, [facility] [place] [facility] [address] [facility] [id number][place] [address] Sep, [facility] [place] [facility] [address] [facility] [id number] [address] Sep, [facility] [address] [facility] [id number] [place] [id number] Jul, [facility] [place] [facility] [address] [facility] [id number] [place] [address] Jul, [facility] [address] [facility] [id number][place] [id number] Jun, [facility] [place] [facility] [address] [facility] [id number][place] [address] Jun, [facility] [address] [facility] [id number] [place] [id number] Jun, [facility] [place] [facility] [address] [facility] [id number] [address] Jun, [facility] [address] [id number], [place] 604[address]2478 Apr, [facility] [place] [facility] [address] [facility] [id number] [address] Apr, [facility] [address] [facility] [id number], [place] [id number] Mar, [facility] [place] [facility] [address] [facility] [id number] [address] Mar, [facility] [address] [facility] [id number], [place] [id number] Mar, [facility] [place] [facility] [address] [facility] [id number] [address] Mar, [facility] [address] [facility] [id number][place] 764403555 Feb, [facility] [place] [facility] [address] [facility] [id number][place] [address] Feb, [facility] [address] [facility] [id number][place] [id number] Jan, [facility] [address] [facility] [id number] [address] Jan, [facility] [address] [id number] [place] [id number] 30 Dec, 2012 [facility] [address] [facility] [id number] [address] 16 Dec, 2012 [facility] [address] [id number] [place] [id number] Dec, [facility] [address] [id number] [place] [id number] Dec, [facility] [address] [id number] [place] [id number] Oct, [facility] [address] [facility] [id number] [place] [id number] Oct, [facility] [address] [facility] [id number][place] [address] Oct, [facility] [address] [id number][place] [id number] Oct, [facility] [address] [id number][place] [id number] Sep, [facility] [address] [id number] [place] [id number] August, [facility] [address] [id number][place] [id number] August, [facility] [address] [id number][place] [id number] August, [facility] [address] [id number] [place] [id number] Jul, [facility] [address] [facility] [id number][place] [address] Jul, [facility] [address] [id number][place] [id number] Jul, [facility] [address] [id number][place] [id number] Jun, [facility] [address] [facility] [id number][place] [address] Jun, [facility] [address] [id number][place] [id number] Jun, [facility] [address] [id number] [id number] Jun, [facility] [id number] [place] [id number] Jun, [facility] [id number][place] [id number] Jun, [facility] [id number] [place] [id number] Jun, [facility] [id number] [place] [id number] Feb, [facility] [id number] [place], [place] [phone] Feb, [facility] [id number] [place] [phone] Jan, [facility] [id number] [place] [phone] Nov, [facility] [id number] [place] [phone] Oct, [facility] [id number] [place] [phone] Oct, [facility] [id number] [place] [phone] Sep, [facility] [id number] [place] [phone] Mar, [facility] [id number] [place] [phone] Nov, IMMUNIZATIONS No Known Immunizations SOCIAL HISTORY Never Assessed REASON FOR VISIT [facility] [place] CARE VITAL SIGNS MEDICATIONS Unknown [...] Via [facility] for [facility] 2012 Hospitalization History [facility] 3 days for stomach flu 07/24/15 Hospitalization History [facility] for vomiting-given mag citrate for "blockage" 03/09/2016 Hospitalization History [facility] [place] 04/20/2018
--- OUTSIDE RECORDS SUMMARY | 2018-10-08 13:24 | XMS REPORT ---
Author Author Migration, Doctor Organization [facility] Address Unknown Phone Unavailable Care Team Providers Care Acquisitions Assistant Name Role Phone Migration, Doctor Unavailable Unavailable PROBLEMS Type Condition ICD9-CM Code [id number] Code Onset Dates Condition Status SNOMED Code Problem Female stress incontinence 625.6 Active 54580915 Problem Chronic rhinitis J31.0 Active 24046667 Problem Nondependent tobacco use disorder 305.1 Active 298216392 Problem Chronic airway obstruction, not elsewhere classified J44.9 Active 62459196 Problem Essential hypertension I10 Active 08817937 Problem Overactive bladder N32.81 Active 549134727 Problem Lung nodule R91.1 Active 347779069 Problem Kidney stone N20.0 Active 21296660 Problem Hereditary and idiopathic neuropathy, 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 Active 34817924 Problem Sciatica of left side M54.32 Active 27650689 Problem Bipolar II disorder F31.81 Active 60166399 Problem Acute exacerbation of chronic obstructive pulmonary disease (COPD) J44.1 Active 189893870 Problem Chronic bronchitis, unspecified chronic bronchitis type J42 Active 23681457 Problem CAP (community acquired pneumonia) J18.9 Active 960294846 Problem Back pain with left-sided radiculopathy M54.10 Active 611754930 Problem PTSD (post-traumatic stress disorder) F43.10 Active 70164304 Problem 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 03425809 Problem Dysthymia F34.1 Active 96563037 ALLERGIES No Information ENCOUNTERS Encounter Location Date Diagnosis [facility] [address] [facility] [id number] [address] Sep, [facility] [address] [facility] [id number], [place] [address] August, [facility] [address] [facility] [id number] [id number] Jul, [facility] [address] [facility] [id number], [place] [address] Jul, Bipolar II disorder F31.81 [facility] [address] [id number] [id number] Jun, Morbid obesity E66.01 ; Chronic rhinitis J31.0 ; Essential hypertension I10 ; Chronic airway obstruction, not elsewhere classified J44.9 ; Acute cystitis without hematuria N30.00 and UTI (lower urinary tract infection) N39.0 [facility] [address]00565100[place] [address] Jun, Bipolar II disorder F31.81 ; 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 and PTSD (post-traumatic stress disorder) F43.[address] [address] [id number] [place] [id number] Jun, [facility] [address] [id number] [place] [address] Jun, Hereditary and idiopathic neuropathy, 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 [address] [id number] [place] [id number] Jun, [facility] [address]00565100[place], [place] [address] May, Bipolar II disorder F31.81 [address]00565[place] [address] May, BMI 45.0-49.9, adult Z68.42 ; Chronic rhinitis J31.0 ; Chronic airway obstruction, not elsewhere classified J44.9 and Hereditary and idiopathic neuropathy, 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 [facility] [address] [facility] [id number][place] [id number] May, [address]00565[place] [id number] May, [facility] [address]00565100[place], [place] [address] May, Bipolar II disorder F31.81 and PTSD (post-traumatic stress disorder) F43.10 [facility] [address] [id number], [place] [address] May, Bipolar II disorder F31.81 ; 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 and PTSD (post-traumatic stress disorder) F43.10 [address]00565[place] [id number] Apr, BMI 45.0-49.9, adult Z68.42 ; Bipolar II disorder F31.81 and Chronic bronchitis, unspecified chronic bronchitis type J42 [address] [id number] [place] [id number] Apr, Dysthymia F34.[id number] [place] [address] [id number] Apr, [address]00565100[place] [id number] Apr, BMI 45.0-49.9, adult Z68.42 ; Bipolar II disorder F31.81 and Acute cystitis without hematuria N30.00 [facility] [address]00565100[place], [place] [address] Apr, Bipolar II disorder F31.81 ; 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 and PTSD (post-traumatic stress disorder) F43.10 [address]00565100[place] [id number] Mar, [address] [place] [address] [id number] Mar, Dysthymia F34.[address] [place] [address] [id number] Mar, BMI 45.0-49.9, adult Z68.42 ; Bipolar II disorder F31.81 ; Dysthymia F34.1 and Intertrigo L30.4 [facility] [address]00565100[place], [place] [address] Mar, Bipolar II disorder F31.81 ; 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 and PTSD (post-traumatic stress disorder) F43.10 [id number] [place] [address] [id number] Feb, Dysthymia F34.1 and BMI 45.0-49.9, adult Z68.42 [id number] [place] [address] [id number] Feb, Dysthymia F34.1 ; Chronic rhinitis J31.0 ; Strain of lumbar region, subsequent encounter S39.012D and BMI 45.0-49.9, adult Z68.42 [id number] [place] [address] [id number] Jan, Encounter for immunization Z23 [id number] [place] [address] [id number] Jan, Dysthymia F34.1 [id number] [place] [address] Jan, PTSD (post-traumatic stress disorder) F43.10 and 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 [id number] [place] [address] [id number] Jan, BMI 45.0-49.9, adult Z68.42 and PTSD (post-traumatic stress disorder) F43.10 [id number] [place] [address] [id number] Jan, BMI 45.0-49.9, adult Z68.42 and Chronic airway obstruction, not elsewhere classified J44.9 [id number] [place] [address] [id number] Dec, PTSD (post-traumatic stress disorder) F43.10 ; Chronic airway obstruction, not elsewhere classified J44.9 ; Dysthymia F34.1 and Thrush B37.[id number] [place] [address] [id number] Nov, Dysthymia F34.1 [facility] [address] [place] [address] Nov, PTSD (post-traumatic stress disorder) F43.10 and 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 [address] [id number] [id number] Nov, BMI 45.0-49.9, adult Z68.42 ; Strain of lumbar region, subsequent encounter S39.012D ; PTSD (post-traumatic stress disorder) F43.10 and Dysthymia F34.1 [facility] [id number] [place] [address] [id number] Oct, [facility] [id number] [place] [address] [id number] Oct, Dysthymia F34.1 and PTSD (post-traumatic stress disorder) F43.10 [facility] [place] [id number] [place] [address] [id number] Oct, BMI 45.0-49.9, adult Z68.42 ; Dysthymia F34.1 ; PTSD (post-traumatic stress disorder) F43.10 and Infective urethritis N34.2 [facility] [id number] [place] [address] [id number] Oct, Dysthymia F34.1 and PTSD (post-traumatic stress disorder) F43.10 [facility] [id number] [place] [address] [id number] Sep, Dysthymia F34.1 and PTSD (post-traumatic stress disorder) F43.10 [facility] [address]00565[address] [id number] Sep, BMI 45.0-49.9, adult Z68.42 and Mood disorder F39 [facility] [id number], [place] [id number] Sep, [facility] [id number] [place] [address] [id number] Sep, Dysthymia F34.1 [facility] [address] [place] [address] [id number] Sep, Mood disorder F39 [facility] [address] [id number] [place] [id number] August, Dysthymia F34.1 [facility] [id number] [place] [address] [id number] August, Dysthymia F34.1 ; Chronic airway obstruction, not elsewhere classified J44.9 ; Back pain with left-sided radiculopathy M54.10 and BMI 45.0-49.9, adult Z68.42 [address] [place] [address] [id number] Jul, Urinary tract infection without hematuria, site unspecified N39.0 and Fatigue, unspecified type R53.83 [facility] [id number] [place] [address] [id number] Jul, Chronic airway obstruction, not elsewhere classified J44.[address] [id number] Jul, BMI 45.0-49.9, adult Z68.42 and Infective urethritis N34.2 [id number] [place] [address] [id number] Jul, [address] [id number] Jun, Back pain with left-sided radiculopathy M54.[address] [id number] May, Chronic airway obstruction, not elsewhere classified J44.9 and Encounter for immunization Z23 [address] [place] [address] [id number] Apr, BMI 45.0-49.9, adult Z68.42 ; Back pain with left-sided radiculopathy M54.10 ; Chronic airway obstruction, not elsewhere classified J44.9 and Dysthymia F34.1 [id number] [place] [address] [id number] Mar, Sciatica of left side M54.32 ; Back pain with left-sided radiculopathy M54.10 and Hereditary and idiopathic neuropathy, 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 [id number] [place] [address] [id number] Mar, Flank pain R10.9 ; Urinary urgency R39.15 and Chronic airway obstruction, not elsewhere classified J44.9 [facility] [id number][place] [id number] Mar, Dysthymia F34.1 [facility] [address] [facility] [address] [id number] [place] [id number] Feb, [facility] [id number] [place] [address] Feb, [facility] [id number] [place] [address] [id number] Feb, Hematuria, unspecified type R31.9 ; Kidney stone N20.0 and BMI 40.0-44.9, adult Z68.41 [facility] [address] [id number] [address] Feb, [facility] [address] [facility] [address] [id number] [place] [id number] Feb, [facility] [id number] [place] [address] [id number] Feb, [facility] [id number] [place] [address] [id number] Feb, Dysthymia F34.1 ; Encounter for immunization Z23 ; Acute nasopharyngitis J00 ; Chronic rhinitis J31.0 and Chronic airway obstruction, not elsewhere classified J44.9 [facility] [address]00565100[place], [place] [address] Jan, Well woman exam Z01.419 ; Left breast lump N63.20 and BMI 40.0-44.9, adult Z68.41 [facility] [id number][place] [id number] Jan, Muscle cramps R25.2 [facility] [id number] [place] [address] [id number] Dec, Dysthymia F34.1 [facility] [id number] [place] [address] [id number] Dec, Muscle cramps R25.2 [facility] [id number] [place] [address] [id number] Nov, Dysthymia F34.1 [facility] [id number] [place] [address] [id number] Oct, [facility] [id number] [place] [address] [id number] Oct, Chronic airway obstruction, not elsewhere classified J44.9 ; Moderate single current episode of major depressive disorder F32.1 ; Chronic rhinitis J31.0 and Muscle cramps R25.2 [facility] [id number] [place] [address] [id number] Sep, Acute nasopharyngitis J00 [facility] [id number] [place] [address] Jun, Acute exacerbation of chronic obstructive pulmonary disease (COPD) J44.1 [facility] [id number] [place] [address] [id number] Jun, Acute nasopharyngitis J00 [facility] [id number] [place] [address] [id number] Jun, [facility] [id number] [place] [address] Apr, [facility] [id number] [place] [address] [id number] Mar, Acute nasopharyngitis J00 [facility] [address] [place] [address] [id number] Mar, [facility] [id number] [place] [address] [id number] Mar, [facility] [id number] [place] [address] [id number] Feb, CAP (community acquired pneumonia) J18.9 and Chronic rhinitis J31.0 [facility] [id number] [place] [address] [id number] Feb, CAP (community acquired pneumonia) J18.9 [facility] [id number] [place] [address] [id number] Feb, CAP (community acquired pneumonia) J18.9 [facility] [id number][place] [id number] Feb, [facility] [id number] [place] [address] [id number] Jan, Mood disorder F39 [facility] [id number] [place] [address] Jan, [facility] [id number] [place] [address] [id number] Jan, Lung nodule R91.1 [facility] [id number] [place] [address] [id number] Jan, Lung nodule R91.1 [facility] [id number] [place] [address] [id number] Jan, Lung nodule R91.1 [facility] [id number] [place] [address] [id number] Jan, Lung nodule R91.1 [facility] [id number] [place] [address] [id number] Jan, [facility] [id number] [place] [address] [id number] Nov, Overactive bladder N32.81 ; Chronic airway obstruction, not elsewhere classified J44.9 and Essential hypertension I10 [facility] [id number] [place] [address] [id number] Oct, [id number] [place] [address] [id number] Oct, Acute non-recurrent sinusitis, unspecified location J01.90 ; Cough R05 and Tobacco dependence F17.200 [facility] [id number] [place] [address] [id number] Sep, Overactive bladder N32.81 and Chronic airway obstruction, not elsewhere classified J44.9 [facility] [id number] [place] [address] [id number] August, Chronic airway obstruction, not elsewhere classified J44.9 ; Mood disorder F39 and Urinary frequency R35.0 [facility] [id number] [place] [address] [id number] August, [id number][place] [id number] Jul, Lung nodule R91.1 ; Chronic airway obstruction, not elsewhere classified J44.9 and Urinary tract infection without hematuria, site unspecified N39.0 [facility] [id number][place] [id number] Jul, Lung nodule R91.1 [facility] [place] [id number] [place] [address] [id number] Jul, [facility] [place] [address] [id number] [place] [address] [id number] Jul, Diarrhea R19.7 and Lung nodule R91.1 [id number] [place] [address] [id number] Apr, Upper respiratory tract infection, unspecified type J06.9 and COPD exacerbation J44.[address] [place] [address] [id number] Mar, [id number] [place] [address] [id number] Feb, Mood disorder F39 and Essential hypertension I10 [id number] [place] [address] [id number] Jan, Essential hypertension I10 ; Mood disorder F39 ; Chronic airway obstruction, not elsewhere classified J44.9 and Chronic rhinitis J31.0 [address]00565[place] [id number] Jan, [address] [id number] [id number] Jan, [facility] [place] [address] [facility] [id number] [place] [id number] Jan, [facility] [address]00565[place] [id number] Jan, [facility] [address]00565100[place] [id number] Dec, Bronchitis [id number] [place] [address] [id number] Dec, [facility] [address] [facility] [id number], [place] [id number] Sep, Rhinitis 472.0 [facility] [place] [facility] [address] [facility] [id number], [place] [address] Jul, [facility] [place] [facility] [address] [facility] [id number], [place] [address] Jul, [facility] [address] [id number], [place] [id number] Jun, [facility] [place] [facility] [address] [facility] [id number], [place] [address] Jun, [facility] [place] [facility] [address] [facility] [id number], [place] [address] Jun, [facility] [address] [facility] [id number], [place] [id number] May, [facility] [place] [facility] [address] [facility] [id number], [place] [address] May, [facility] [address] [facility] [id number], [place] [id number] Apr, [facility] [place] [facility] [address] [facility] [id number], [place] [address] Apr, [facility] [address] [facility] [id number], [place] [id number] Mar, [facility] [place] [facility] [address] [facility] [id number], [place] [address] Mar, [facility] [address] [id number], [place] [id number] Mar, [facility] [place] [facility] [address] [facility] [id number], [place] [address] Mar, [facility] [address] [facility] [id number], [place] [id number] Mar, [facility] [place] [facility] [address] [facility] [id number], [place] [address] Mar, [facility] [address] [id number] [place] [id number] Mar, [facility] [place] [facility] [address] [id number], [place] [address] Mar, [facility] [address] [facility] [id number] [place] [id number] Feb, [facility] [place] [facility] [address] [facility] [id number], [place] [address] Feb, [facility] [address] [facility] [id number] [place] [id number] Feb, [facility] [place] [facility] [address] [facility] [id number] [place] [address] Feb, [facility] [address] [facility] [id number] [place] [id number] Feb, [facility] [place] [facility] [address] [id number], [place] [address] Feb, [facility] [address] [id number], [place] [id number] Jan, [facility] [place] [facility] [address] [facility] [id number][place] [address] Jan, [facility] [address] [facility] [id number], [place] [id number] Jan, [facility] [place] [facility] [address] [facility] [id number], [place] [address] Jan, [facility] [address] [facility] [id number], [place] [id number] Sep, [facility] [place] [facility] [address] [facility] [id number], [place] [address] Sep, [facility] [place] [facility] [address] [facility] [id number][place] [address] Sep, [facility] [address] [facility] [id number], [place] [id number] Sep, [facility] [place] [facility] [address] [facility] [id number][place] [address] Sep, [facility] [place] [facility] [address] [facility] [id number][place] [address] Sep, [facility] [address] [facility] [id number] [place] [id number] Jul, [facility] [place] [facility] [address] [facility] [id number] [place] [address] Jul, [facility] [address] [facility] [id number], [place] [id number] Jun, [facility] [place] [facility] [address] [facility] [id number], [place] [address] Jun, [facility] [address] [facility] [id number] [place] [id number] Jun, [facility] [place] [facility] [address] [facility] [id number], [place] [address] Jun, [facility] [address] [id number], [place] [id number] Apr, [facility] [place] [facility] [address] [facility] [id number], [place] [address] Apr, [facility] [address] [facility] [id number], [place] [id number] Mar, [facility] [place] [facility] [address] [facility] [id number], [place] [address] Mar, [facility] [address] [facility] [id number], [place] 039456202 Mar, [facility] [place] [facility] [address] [facility] [id number], [place] [address] Mar, [facility] [address] [facility] [id number], [place] [id number] Feb, [facility] [place] [facility] [address] [facility] [id number], [place] [address] Feb, [facility] [address] [facility] [id number], [place] [id number] Jan, [facility] [place] [facility] [address] [facility] [id number], [place] [address] Jan, [facility] [address] [id number] [place] [id number] Dec, 2012 [facility] [address] [facility] [id number], [place] [address] 16 Dec, 2012 [facility] [address] [id number] [place] [id number] Dec, [facility] [address] [id number] [place] [id number] Dec, [facility] [address] [id number] [place] [id number] Oct, [facility] [address] [facility] [id number] [place] [id number] Oct, [facility] [address] [facility] [id number], [place] [address] Oct, [facility] [address] [id number][place] [id number] Oct, [facility] [address] [id number][place] [id number] Sep, [facility] [address] [id number] [place] [id number] August, [facility] [address] [id number][place] [id number] August, [facility] [address] [id number][place] [id number] August, [facility] [address] [id number] [place] [id number] Jul, [facility] [address] [facility] [id number], [place] [address] Jul, [facility] [address] [id number][place] [id number] Jul, [facility] [address] [id number], [place] [id number] Jun, [facility] [address] [facility] [id number], [place] [address] Jun, [facility] [address] [id number][place] [id number] Jun, [facility] [address] [id number] [id number] Jun, [facility] [id number] [place] [id number] Jun, [facility] [id number][place] [id number] Jun, [facility] [id number] [place] [id number] Jun, [facility] [id number] [place] [id number] Feb, [facility] [id number] [place] [id number] Feb, [facility] [id number] [place] [id number] Jan, [facility] [id number] [place] [id number] Nov, [facility] [id number] [place] [id number] Oct, [facility] [id number] [place] [id number] Oct, [facility] [id number] [place] [id number] Sep, [facility] [id number] [place] [phone] Mar, [facility] [id number] [place] [phone] Nov, IMMUNIZATIONS No Known Immunizations SOCIAL HISTORY Never Assessed REASON FOR VISIT [facility] PLAN OF CARE VITAL SIGNS MEDICATIONS Unknown [...] 1979 Hospitalization History [facility] [facility] 3 days for stomach flu 07/24/15 Hospitalization History [facility]-given mag citrate for "blockage" 03/09/2016 Hospitalization History [facility] [place] anxiety 04/20/2018
--- OUTSIDE RECORDS SUMMARY | 2018-10-08 13:25 | XMS REPORT ---
Author Author Migration, Doctor Organization [facility] Address Unknown Phone Unavailable Care Team Providers Care Chain Saw Operator Name Role Phone Migration, Doctor Unavailable Unavailable PROBLEMS Type Condition ICD9-CM Code NZU42-PY Code Onset Dates Condition Status SNOMED Code Problem Female stress incontinence 625.6 Active 85052723 Problem Chronic rhinitis J31.0 Active 24463818 Problem Nondependent tobacco use disorder 305.1 Active 532632000 Problem Chronic airway obstruction, not elsewhere classified J44.9 Active 86306918 Problem Essential hypertension I10 Active 89975301 Problem Overactive bladder N32.81 Active 244669542 Problem Lung nodule R91.1 Active 688459144 Problem Kidney stone N20.0 Active 21896429 Problem Hereditary and idiopathic neuropathy, 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 Active 84650225 Problem Sciatica of left side M54.32 Active 76912233 Problem Bipolar II disorder F31.81 Active 86412516 Problem Acute exacerbation of chronic obstructive pulmonary disease (COPD) J44.1 Active 597329378 Problem Chronic bronchitis, unspecified chronic bronchitis type J42 Active 45748554 Problem CAP (community acquired pneumonia) J18.9 Active 497867399 Problem Back pain with left-sided radiculopathy M54.10 Active 007705281 Problem PTSD (post-traumatic stress disorder) F43.10 Active 87047572 Problem 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 [id number] [place] [id number] Jul, [facility], [place] [address] [facility] [id number], [place] [address] Jul, Bipolar II disorder F31.81 [facility] [address] [id number] [place] [id number] Jun, Morbid obesity E66.01 ; Chronic rhinitis J31.0 ; Essential hypertension I10 ; Chronic airway obstruction, not elsewhere classified J44.9 ; Acute cystitis without hematuria N30.00 and UTI (lower urinary tract infection) N39.0 [facility], [place] [address]00565100[place], [place] [address] Jun, Bipolar II disorder F31.81 ; 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 and PTSD (post-traumatic stress disorder) F43.[address] [facility] [address] [id number] [place] [id number] Jun, [facility] [address] [id number] [place] [id number] Jun, Hereditary and idiopathic neuropathy, 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 [facility] [address] [id number] [place] [id number] Jun, [facility], [place] [address]65[address], [place] [address] May, Bipolar II disorder F31.81 [address]00565100[place] [id number] May, BMI 45.0-49.9, adult Z68.42 ; Chronic rhinitis J31.0 ; Chronic airway obstruction, not elsewhere classified J44.9 and Hereditary and idiopathic neuropathy, 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 [facility] [address] 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 and PTSD (post-traumatic stress disorder) F43.10 [address]00565100[place] [id number] Apr, BMI 45.0-49.9, adult Z68.42 ; Bipolar II disorder F31.81 and Chronic bronchitis, unspecified chronic bronchitis type J42 [address] [id number] [place] [id number] Apr, Dysthymia F34.1 [address] [place] [address] [id number] Apr, [address]00565[address] [address] Apr, BMI 45.0-49.9, adult Z68.42 ; Bipolar II disorder F31.81 and Acute cystitis without hematuria N30.00 [facility], [place] [address]00565100[place], [place] [address] Apr, Bipolar II disorder F31.81 ; 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 and PTSD (post-traumatic stress disorder) F43.10 [address]00565100[place] [id number] Mar, [address] [place] [address] [id number] Mar, Dysthymia F34.1 [address] [place] [address] [id number] Mar, BMI 45.0-49.9, adult Z68.42 ; Bipolar II disorder F31.81 ; Dysthymia F34.1 and Intertrigo L30.4 [facility], [place] [address]00565100[place], [place] [address] Mar, Bipolar II disorder F31.81 ; 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 and PTSD (post-traumatic stress disorder) F43.10 [place] [place] [id number] [place] [address] [id number] Feb, Dysthymia F34.1 and BMI 45.0-49.9, adult Z68.42 [place] [id number] [place] [address] [id number] Feb, Dysthymia F34.1 ; Chronic rhinitis J31.0 ; Strain of lumbar region, subsequent encounter S39.012D and BMI 45.0-49.9, adult Z68.42 [id number] [place] [address] [id number] Jan, Encounter for immunization Z23 [id number] [place] [address] [id number] Jan, Dysthymia F34.1 [address] [id number] [place] [address] Jan, PTSD (post-traumatic stress disorder) F43.10 and 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 [address] [id number] [place] [address] [id number] Jan, BMI 45.0-49.9, adult Z68.42 and PTSD (post-traumatic stress disorder) F43.10 [place] [address] [place] [address] [id number] Jan, BMI 45.0-49.9, adult Z68.42 and Chronic airway obstruction, not elsewhere classified J44.9 [address] [address] [place] [address] [id number] Dec, PTSD (post-traumatic stress disorder) F43.10 ; Chronic airway obstruction, not elsewhere classified J44.9 ; Dysthymia F34.1 and Thrush B37.0 [address] [place] [address] [id number] Nov, Dysthymia F34.1 [facility], [place] [address] [place] [address] Nov, PTSD (post-traumatic stress disorder) F43.10 and 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 [address] [id number] [id number] Nov, BMI 45.0-49.9, adult Z68.42 ; Strain of lumbar region, subsequent encounter S39.012D ; PTSD (post-traumatic stress disorder) F43.10 and Dysthymia F34.1 [facility] [id number] [place] [address] [id number] Oct, [facility] [id number] [place] [address] [id number] Oct, Dysthymia F34.1 and PTSD (post-traumatic stress disorder) F43.10 [facility] [id number] [place] [address] [id number] Oct, BMI 45.0-49.9, adult Z68.42 ; Dysthymia F34.1 ; PTSD (post-traumatic stress disorder) F43.10 and Infective urethritis N34.2 [facility] [id number] [place] [address] [id number] Oct, Dysthymia F34.1 and PTSD (post-traumatic stress disorder) F43.10 [facility] [id number] [place] [address] [id number] Sep, Dysthymia F34.1 and PTSD (post-traumatic stress disorder) F43.10 [facility] [address]00565100[place] [address] Sep, BMI 45.0-49.9, adult Z68.42 and Mood disorder F39 [facility] [id number] [place] [id number] Sep, [facility] [id number] [place] [address] [id number] Sep, Dysthymia F34.1 [facility] [address] [place] [address] [id number] Sep, Mood disorder F39 [facility] [address] [id number] [place] [id number] August, Dysthymia F34.1 [facility] [id number] [place] [address] [id number] August, Dysthymia F34.1 ; Chronic airway obstruction, not elsewhere classified J44.9 ; Back pain with left-sided radiculopathy M54.10 and BMI 45.0-49.9, adult Z68.42 [address] [place] [address] [id number] Jul, Urinary tract infection without hematuria, site unspecified N39.0 and Fatigue, unspecified type R53.83 [facility] [id number] [place] [address] [id number] Jul, Chronic airway obstruction, not elsewhere classified J44.[address] [id number] Jul, BMI 45.0-49.9, adult Z68.42 and Infective urethritis N34.2 [address] [id number] [place] [address] [id number] Jul, [address] [id number] Jun, Back pain with left-sided radiculopathy M54.[address] [id number] May, Chronic airway obstruction, not elsewhere classified J44.9 and Encounter for immunization Z23 [address] [place] [address] [id number] Apr, BMI 45.0-49.9, adult Z68.42 ; Back pain with left-sided radiculopathy M54.10 ; Chronic airway obstruction, not elsewhere classified J44.9 and Dysthymia F34.1 [address] [address] [place] [address] [id number] Mar, Sciatica of left side M54.32 ; Back pain with left-sided radiculopathy M54.10 and Hereditary and idiopathic neuropathy, 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 [address] [address] [place] [address] [id number] Mar, Flank pain R10.9 ; Urinary urgency R39.15 and Chronic airway obstruction, not elsewhere classified J44.9 [facility] [id number] [place]IM[place], [place] [id number] Mar, Dysthymia F34.1 [facility] [address] [facility] [id number] [place] [id number] Feb, [facility], [place] [id number] [place] [address] Feb, [facility] [id number] [place] [address] [id number] Feb, Hematuria, unspecified type R31.9 ; Kidney stone N20.0 and BMI 40.0-44.9, adult Z68.41 [facility] [address] [place], [place]57[place] [address] Feb, [facility] [address] [facility] [id number] [place] [id number] Feb, [facility] [id number] [place] [address] [id number] Feb, [facility] [id number] [place] [address] [id number] Feb, Dysthymia F34.1 ; Encounter for immunization Z23 ; Acute nasopharyngitis J00 ; Chronic rhinitis J31.0 and Chronic airway obstruction, not elsewhere classified J44.9 [facility], [place] [address]00565100[place], [place] [address] Jan, Well woman exam Z01.419 ; Left breast lump N63.20 and BMI 40.0-44.9, adult Z68.41 [facility] [id number] [place] [id number] Jan, Muscle cramps R25.2 [facility] [id number] [place] [address] [id number] Dec, Dysthymia F34.1 [facility] [id number] [place] [address] [id number] Dec, Muscle cramps R25.2 [facility] [id number] [place] [address] [id number] Nov, Dysthymia F34.1 [facility] [id number] [place] [address] [id number] Oct, [facility] [id number] [place] [address] [id number] Oct, Chronic airway obstruction, not elsewhere classified J44.9 ; Moderate single current episode of major depressive disorder F32.1 ; Chronic rhinitis J31.0 and Muscle cramps R25.2 [facility] [id number] [place] [address] [id number] Sep, Acute nasopharyngitis J00 [facility] [id number] [place] [address] Jun, Acute exacerbation of chronic obstructive pulmonary disease (COPD) J44.1 [facility] [id number] [place] [address] [id number] Jun, Acute nasopharyngitis J00 [facility] [id number] [place] [address] [id number] Jun, [facility], [place] [id number] [place] [address] Apr, [facility] [id number] [place] [address] [id number] Mar, Acute nasopharyngitis J00 [facility] [address] [place] [address] [id number] Mar, [facility] [id number] [place] [address] [id number] Mar, [facility] [id number] [place] [address] [id number] Feb, CAP (community acquired pneumonia) J18.9 and Chronic rhinitis J31.0 [facility] [id number] [place] [address] [id number] Feb, CAP (community acquired pneumonia) J18.9 [facility] [id number] [place] [address] [id number] Feb, CAP (community acquired pneumonia) J18.9 [facility] [id number] [place] [id number] Feb, [facility] [id number] [place] [address] [id number] Jan, Mood disorder F39 [facility], [place] [address] [place] [address] Jan, [facility] [id number] [place] [address] [id number] Jan, Lung nodule R91.1 [facility] [id number] [place] [address] [id number] Jan, Lung nodule R91.1 [facility] [id number] [place] [address] [id number] Jan, Lung nodule R91.1 [facility] [id number] [place] [address] [id number] Jan, Lung nodule R91.1 [facility] [id number] [place] [address] [id number] Jan, [facility] [id number] [place] [address] [id number] Nov, Overactive bladder N32.81 ; Chronic airway obstruction, not elsewhere classified J44.9 and Essential hypertension I10 [facility] [id number] [place] [address] [id number] Oct, [place] [address] [id number] [place] [address] [id number] Oct, Acute non-recurrent sinusitis, unspecified location J01.90 ; Cough R05 and Tobacco dependence F17.200 [facility] [id number] [place] [address] [id number] Sep, Overactive bladder N32.81 and Chronic airway obstruction, not elsewhere classified J44.9 [facility] [id number] [place] [address] [id number] August, Chronic airway obstruction, not elsewhere classified J44.9 ; Mood disorder F39 and Urinary frequency R35.0 [facility] [id number] [place] [address] [id number] August, [place] [address] [id number] [place] [id number] Jul, Lung nodule R91.1 ; Chronic airway obstruction, not elsewhere classified J44.9 and Urinary tract infection without hematuria, site unspecified N39.0 [facility] [id number] [place] [id number] Jul, Lung nodule R91.1 [facility] [id number] [place] [address] [id number] Jul, [facility] [id number] [place] [address] [id number] Jul, Diarrhea R19.7 and Lung nodule R91.1 [place] [address] [place] [address] [id number] Apr, Upper respiratory tract infection, unspecified type J06.9 and COPD exacerbation J44.[address] [place] [address] [id number] Mar, [place] [id number] [place] [address] [id number] Feb, Mood disorder F39 and Essential hypertension I10 [place] [address] [place] [address] [id number] Jan, Essential hypertension I10 ; Mood disorder F39 ; Chronic airway obstruction, not elsewhere classified J44.9 and Chronic rhinitis J31.0 [address]00565100[place], [place] [id number] Jan, [address] [id number][place] [id number] Jan, [facility] [place] [address] [facility] [id number] [place] [id number] Jan, [facility] [address]005[address]100[place], [place] [id number] Jan, [facility] [address]00565100[place], [place] [id number] Dec, Bronchitis [id number] [place] [address] [id number] Dec, [facility] [address] [facility] [id number] [place] [id number] Sep, Rhinitis 472.0 [facility] [place] [facility] [address] [facility] [id number], [place] [address] Jul, [facility] [place] [facility] [address] [facility] [id number], [place] [address] Jul, [facility] [address] [id number] [place] [phone] Jun, [facility] [place] [facility] [address] [facility] [id number], [place] [address] Jun, [facility] [place] [facility] [address] [facility] [id number], [place] [address] Jun, [facility] [address] [facility] [id number] [place] [id number] May, [facility] [place] [facility] [address] [facility] [id number], [place] [address] May, [facility] [address] [facility] [id number] [place] [id number] Apr, [facility] [place] [facility] [address] [facility] [id number], [place] [address] Apr, [facility] [address] [facility] [id number] [place] [id number] Mar, [facility] [place] [facility] [address] [facility] [id number], [place] [address] Mar, [facility] [address] [id number] [place] [id number] Mar, [facility] [place] [facility] [address] [facility] [id number], [place] [address] Mar, [facility] [address] [facility] [id number] [place] [id number] Mar, [facility] [place] [facility] [address] [facility] [id number], [place] [address] Mar, [facility] [address] [id number] [place] [id number] Mar, [facility] [place] [facility] [address] [id number], [place] [address] Mar, [facility] [address] [facility] [id number] [place] [id number] Feb, [facility] [place] [facility] [address] [facility] [id number], [place] [address] Feb, [facility] [address] [facility] [id number] [place] [id number] Feb, [facility] [place] [facility] [address] [facility] [id number] [place] [address] Feb, [facility] [address] [facility] [id number] [place] [id number] Feb, [facility] [place] [facility] [address] [id number], [place] [address] Feb, [facility] [address] [id number] [place] [id number] Jan, [facility] [place] [facility] [address] [facility] [id number], [place] [address] Jan, [facility] [address] [facility] [id number] [place] [id number] Jan, [facility] [place] [facility] [address] [facility] [id number][place] [address] Jan, [facility] [address] [facility] [id number] [place] [id number] Sep, [facility] [place] [facility] [address] [facility] [id number][place] [address] Sep, [facility] [place] [facility] [address] [facility] [id number], [place] [address] Sep, [facility] [address] [facility] [id number] [place] [id number] Sep, [facility] [place] [facility] [address] [facility] [id number][place] [address] Sep, [facility] [place] [facility] [address] [facility] [id number], [place] [address] Sep, [facility] [address] [facility] [id number] [place] [id number] Jul, [facility] [place] [facility] [address] [facility] [id number] [place] [address] Jul, [facility] [address] [facility] [id number] [place] [id number] Jun, [facility] [place] [facility] [address] [facility] [id number], [place] [address] Jun, [facility] [address] [facility] [id number] [place] [id number] Jun, [facility] [place] [facility] [address] [facility] [id number], [place] [address] Jun, [facility] [address] [id number] [place] [id number] Apr, [facility] [address] [facility] [id number], [place] [address] Apr, [facility] [address] [facility] [id number] [place] [id number] Mar, [facility] [address] [facility] [id number], [place] [address] Mar, [facility] [address] [facility] [id number] [place] [id number] Mar, [facility] [address] [facility] [id number], [place] [address] Mar, [facility] [address] [facility] [id number] [place] [id number] Feb, [facility] [address] [facility] [id number], [place] [address] Feb, [facility] [address] [facility] [id number] [place] [id number] Jan, [facility] [address] [facility] [id number], [place] [address] Jan, [facility] [address] [id number] [place] [id number] 30 Dec, 2012 [facility] [address] [facility] [id number], [place] [address] 16 Dec, 2012 [facility] [address] [id number] [place] [id number] Dec, [facility] [address] [id number] [place] [id number] Dec, [facility] [address] [id number] [place] [id number] Oct, [facility] [address] [facility] [id number] [place] [id number] Oct, [facility] [address] [facility] [id number], [place] [address] Oct, [facility] [address] [id number] [place] [id number] Oct, [facility] [address] [id number] [place] [id number] Sep, [facility] [address] [id number] [place] [id number] August, [facility] [address] [id number] [place] [id number] August, [facility] [address] [id number] [place] [id number] August, [facility] [address] [id number] [place] [id number] Jul, [facility] [address] [facility] [facility] [id number] [address] Jul, [facility] [address] [id number] [place] [id number] Jul, [facility] [address] [id number] [place] [id number] Jun, [facility] [address] [facility] [id number], [place] [address] Jun, [facility] [address] [id number] [place] [id number] Jun, [facility] [address] [id number] [place] [id number] Jun, [facility] [id number] [place] [id number] Jun, [facility] [id number] [place] [id number] Jun, [facility] [id number] [place] [id number] Jun, [facility] [id number] [place] [id number] Feb, [facility] [place] [id number] [place] [id number] Feb, [facility] [id number] [place] [id number] Jan, [facility] [id number] [place] [id number] Nov, [facility] [id number] [place] [id number] Oct, [facility] [id number] [place] [id number] Oct, [facility] [id number] [place] [id number] Sep, [facility] [place] [id number] [place] [id number] Mar, [facility] [place] [id number] [place] [phone] Nov, IMMUNIZATIONS No Known Immunizations SOCIAL HISTORY Never Assessed REASON FOR VISIT [facility] PLAN OF CARE VITAL SIGNS MEDICATIONS Unknown [...] Hospitalization History [facility] for [facility] 2012 Hospitalization History [facility] x 3 days for stomach flu 07/24/15 Hospitalization History [facility] for [facility]-given mag citrate for "blockage" 03/09/2016 Hospitalization History [facility] [place] anxiety 04/20/2018
--- OUTSIDE RECORDS SUMMARY | 2018-10-08 13:25 | XMS REPORT ---
Author Author Migration, Doctor Organization [facility] Address Unknown Phone Unavailable Care Team Providers Care Residential Plumber Name Role Phone Migration, Doctor Unavailable Unavailable PROBLEMS Type Condition ICD9-CM Code EJA12-PL Code Onset Dates Condition Status SNOMED Code Problem Female stress incontinence 625.6 Active 91493643 Problem Chronic rhinitis J31.0 Active 41305973 Problem Nondependent tobacco use disorder 305.1 Active 497145523 Problem Chronic airway obstruction, not elsewhere classified J44.9 Active 19633203 Problem Essential hypertension I10 Active 95932965 Problem Overactive bladder N32.81 Active 818214446 Problem Lung nodule R91.1 Active 074781057 Problem Kidney stone N20.0 Active 52307049 Problem Hereditary and idiopathic neuropathy, 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 Active 22233735 Problem Sciatica of left side M54.32 Active 05465507 Problem Bipolar II disorder F31.81 Active 63069803 Problem Acute exacerbation of chronic obstructive pulmonary disease (COPD) J44.1 Active 273137532 Problem Chronic bronchitis, unspecified chronic bronchitis type J42 Active 76038681 Problem CAP (community acquired pneumonia) J18.9 Active 647562371 Problem Back pain with left-sided radiculopathy M54.10 Active 895099170 Problem PTSD (post-traumatic stress disorder) F43.10 Active 91386948 Problem 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 53998707 Problem Dysthymia F34.1 Active 51809847 ALLERGIES No Information ENCOUNTERS Encounter Location Date Diagnosis [facility] [address] [facility] [id number], [place] [address] August, [facility] [address] [facility] [id number] [id number] Jul, [facility] [address] [id number] [address] Jul, [facility] [address] [id number] [address] Jul, Bipolar II disorder F31.81 [facility] [address] [id number] [id number] Jun, Morbid obesity E66.01 ; Chronic rhinitis J31.0 ; Essential hypertension I10 ; Chronic airway obstruction, not elsewhere classified J44.9 ; Acute cystitis without hematuria N30.00 and UTI (lower urinary tract infection) N39.0 [facility] [address]65100[place], [place] [address] Jun, Bipolar II disorder F31.81 ; 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 and PTSD (post-traumatic stress disorder) F43.10 [facility] [address] [id number] [id number] Jun, [facility] [address] [id number][place] [id number] Jun, Hereditary and idiopathic neuropathy, 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 [facility] [address] [id number], [place] [id number] Jun, [facility] [address], [place] [address] May, Bipolar II disorder F31.81 [address]00565100[place] [id number] May, BMI 45.0-49.9, adult Z68.42 ; Chronic rhinitis J31.0 ; Chronic airway obstruction, not elsewhere classified J44.9 and Hereditary and idiopathic neuropathy, 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 [facility] [address] [facility] [id number][place] [id number] May, [address]00565100[place] [address] May, [facility] [address], [place] [address] May, Bipolar II disorder F31.81 and PTSD (post-traumatic stress disorder) F43.10 [facility] [address] [id number] [address] May, Bipolar II disorder F31.81 ; 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 and PTSD (post-traumatic stress disorder) F43.10 [address]00565100[place] [id number] Apr, BMI 45.0-49.9, adult Z68.42 ; Bipolar II disorder F31.81 and Chronic bronchitis, unspecified chronic bronchitis type J42 [address] [id number], [place] [id number] Apr, Dysthymia F34.1 [address] [place] [address] [id number] Apr, [address]00565100[place] [address]35[address] Apr, BMI 45.0-49.9, adult Z68.42 ; Bipolar II disorder F31.81 and Acute cystitis without hematuria N30.00 [facility] [address]65[address], [place] [address] Apr, Bipolar II disorder F31.81 ; 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 and PTSD (post-traumatic stress disorder) F43.10 [address]00565100[place] [address] Mar, [address] [place] [address] [id number] Mar, Dysthymia F34.1 [address] [place] [address] [id number] Mar, BMI 45.0-49.9, adult Z68.42 ; Bipolar II disorder F31.81 ; Dysthymia F34.1 and Intertrigo L30.4 [facility] [address], [place] [address] Mar, Bipolar II disorder F31.81 ; 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 and PTSD (post-traumatic stress disorder) F43.10 [id number] [place] [address] [id number] Feb, Dysthymia F34.1 and BMI 45.0-49.9, adult Z68.42 [id number] [place] [address] [id number] Feb, Dysthymia F34.1 ; Chronic rhinitis J31.0 ; Strain of lumbar region, subsequent encounter S39.012D and BMI 45.0-49.9, adult Z68.42 [id number] [place] [address] [id number] Jan, Encounter for immunization Z23 [id number] [place] [address] [id number] Jan, Dysthymia F34.1 [id number] [place] [address] Jan, PTSD (post-traumatic stress disorder) F43.10 and 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 [id number] [place] [address] [id number] Jan, BMI 45.0-49.9, adult Z68.42 and PTSD (post-traumatic stress disorder) F43.10 [address] [place] [address] [id number] Jan, BMI 45.0-49.9, adult Z68.42 and Chronic airway obstruction, not elsewhere classified J44.9 [address] [place] [address] [id number] Dec, PTSD (post-traumatic stress disorder) F43.10 ; Chronic airway obstruction, not elsewhere classified J44.9 ; Dysthymia F34.1 and Thrush B37.0 [address] [place] [address] [id number] Nov, Dysthymia F34.1 [facility] [address] [place] [address] Nov, PTSD (post-traumatic stress disorder) F43.10 and 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 [address] [id number] [id number] Nov, BMI 45.0-49.9, adult Z68.42 ; Strain of lumbar region, subsequent encounter S39.012D ; PTSD (post-traumatic stress disorder) F43.10 and Dysthymia F34.1 [facility] [id number] [place] [address] [id number] Oct, [facility] [id number] [place] [address] [id number] Oct, Dysthymia F34.1 and PTSD (post-traumatic stress disorder) F43.10 [facility] [id number] [place] [address] [id number] Oct, BMI 45.0-49.9, adult Z68.42 ; Dysthymia F34.1 ; PTSD (post-traumatic stress disorder) F43.10 and Infective urethritis N34.2 [facility] [id number] [place] [address] [id number] Oct, Dysthymia F34.1 and PTSD (post-traumatic stress disorder) F43.10 [facility] [id number] [place] [address] [id number] Sep, Dysthymia F34.1 and PTSD (post-traumatic stress disorder) F43.10 [facility] [address]00565100[place] [id number] Sep, BMI 45.0-49.9, adult Z68.42 and Mood disorder F39 [facility] [id number], [place] [id number] Sep, [facility] [id number] [place] [address] [id number] Sep, Dysthymia F34.1 [facility] [address] [place] [address] [id number] Sep, Mood disorder F39 [facility] [address] [id number], [place] [id number] August, Dysthymia F34.1 [facility] [id number] [place] [address] [id number] August, Dysthymia F34.1 ; Chronic airway obstruction, not elsewhere classified J44.9 ; Back pain with left-sided radiculopathy M54.10 and BMI 45.0-49.9, adult Z68.42 [address] [place] [address] [id number] Jul, Urinary tract infection without hematuria, site unspecified N39.0 and Fatigue, unspecified type R53.83 [facility] [id number] [place] [address] [id number] Jul, Chronic airway obstruction, not elsewhere classified J44.[address] [id number] Jul, BMI 45.0-49.9, adult Z68.42 and Infective urethritis N34.2 [address] [place] [address] [id number] Jul, [address] [id number] Jun, Back pain with left-sided radiculopathy M54.[address] [id number] May, Chronic airway obstruction, not elsewhere classified J44.9 and Encounter for immunization Z23 [address] [place] [address] [id number] Apr, BMI 45.0-49.9, adult Z68.42 ; Back pain with left-sided radiculopathy M54.10 ; Chronic airway obstruction, not elsewhere classified J44.9 and Dysthymia F34.1 [address] [place] [address] [id number] Mar, Sciatica of left side M54.32 ; Back pain with left-sided radiculopathy M54.10 and Hereditary and idiopathic neuropathy, 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 [address] [place] [address] [id number] Mar, Flank pain R10.9 ; Urinary urgency R39.15 and Chronic airway obstruction, not elsewhere classified J44.9 [facility] [id number], [place] [id number] Mar, Dysthymia F34.1 [facility] [address] [facility] [address] [id number][place] [id number] Feb, [facility] [id number] [place] [address] Feb, [facility] [id number] [place] [address] [id number] Feb, Hematuria, unspecified type R31.9 ; Kidney stone N20.0 and BMI 40.0-44.9, adult Z68.41 [facility] [address] [place], [place] [id number] [address] Feb, [facility] [address] [facility] [address] [id number][place] [id number] Feb, [facility] [id number] [place] [address] [id number] Feb, [facility] [id number] [place] [address] [id number] Feb, Dysthymia F34.1 ; Encounter for immunization Z23 ; Acute nasopharyngitis J00 ; Chronic rhinitis J31.0 and Chronic airway obstruction, not elsewhere classified J44.9 [facility] [address]65100[place], [place] [address] Jan, Well woman exam Z01.419 ; Left breast lump N63.20 and BMI 40.0-44.9, adult Z68.41 [facility] [id number], [place] [id number] Jan, Muscle cramps R25.2 [facility] [id number] [place] [address] [id number] Dec, Dysthymia F34.1 [facility] [id number] [place] [address] [id number] Dec, Muscle cramps R25.2 [facility] [id number] [place] [address] [id number] Nov, Dysthymia F34.1 [facility] [id number] [place] [address] [id number] Oct, [facility] [id number] [place] [address] [id number] Oct, Chronic airway obstruction, not elsewhere classified J44.9 ; Moderate single current episode of major depressive disorder F32.1 ; Chronic rhinitis J31.0 and Muscle cramps R25.2 [facility] [id number] [place] [address] [id number] Sep, Acute nasopharyngitis J00 [facility] [id number] [place] [address] Jun, Acute exacerbation of chronic obstructive pulmonary disease (COPD) J44.1 [facility] [id number] [place] [address] [id number] Jun, Acute nasopharyngitis J00 [facility] [id number] [place] [address] [id number] Jun, [facility] [id number] [place] [address] Apr, [facility] [id number] [place] [address] [id number] Mar, Acute nasopharyngitis J00 [facility] [address] [place] [address] [id number] Mar, [facility] [id number] [place] [address] [id number] Mar, [facility] [id number] [place] [address] [id number] Feb, CAP (community acquired pneumonia) J18.9 and Chronic rhinitis J31.0 [facility] [id number] [place] [address] [id number] Feb, CAP (community acquired pneumonia) J18.9 [facility] [id number] [place] [address] [id number] Feb, CAP (community acquired pneumonia) J18.9 [facility] [id number], [place] [id number] Feb, [facility] [id number] [place] [address] [id number] Jan, Mood disorder F39 [facility] [address] [place] [address] Jan, [facility] [id number] [place] [address] [id number] Jan, Lung nodule R91.1 [facility] [id number] [place] [address] [id number] Jan, Lung nodule R91.1 [facility] [id number] [place] [address] [id number] Jan, Lung nodule R91.1 [facility] [id number] [place] [address] [id number] Jan, Lung nodule R91.1 [facility] [id number] [place] [address] [id number] Jan, [facility] [id number] [place] [address] [id number] Nov, Overactive bladder N32.81 ; Chronic airway obstruction, not elsewhere classified J44.9 and Essential hypertension I10 [facility] [id number] [place] [address] [id number] Oct, [id number] [place] [address] [id number] Oct, Acute non-recurrent sinusitis, unspecified location J01.90 ; Cough R05 and Tobacco dependence F17.200 [facility] [id number] [place] [address] [id number] Sep, Overactive bladder N32.81 and Chronic airway obstruction, not elsewhere classified J44.9 [facility] [id number] [place] [address] [id number] August, Chronic airway obstruction, not elsewhere classified J44.9 ; Mood disorder F39 and Urinary frequency R35.0 [facility] [id number] [place] [address] [id number] August, [id number], [place] [id number] Jul, Lung nodule R91.1 ; Chronic airway obstruction, not elsewhere classified J44.9 and Urinary tract infection without hematuria, site unspecified N39.0 [facility] [id number], [place] [id number] Jul, Lung nodule R91.1 [facility] [id number] [place] [address] [id number] Jul, [facility] [id number] [place] [address] [id number] Jul, Diarrhea R19.7 and Lung nodule R91.1 [address] [place] [address] [id number] Apr, Upper respiratory tract infection, unspecified type J06.9 and COPD exacerbation J44.[address] [place] [address] [id number] Mar, [address] [place] [address] [id number] Feb, Mood disorder F39 and Essential hypertension I10 [address] [place] [address] [id number] Jan, Essential hypertension I10 ; Mood disorder F39 ; Chronic airway obstruction, not elsewhere classified J44.9 and Chronic rhinitis J31.0 [address]00565100[place] [id number] Jan, [address] [id number], [place] [id number] Jan, [facility] [address] [address] [facility] [id number], [place] [id number] Jan, [facility] [address]00565100[place] [id number] Jan, [facility] [address]00565100[place] [id number] Dec, Bronchitis [id number] [place] [address] [id number] Dec, [facility] [address] [facility] [id number], [place] [id number] Sep, Rhinitis 472.0 [facility] [place] [facility] [address] [facility] [id number], [place] [address] Jul, [facility] [place] [facility] [address] [facility] [id number], [place] [address] Jul, [facility] [address] [id number], [place] [id number] Jun, [facility] [place] [facility] [address] [facility] [id number], [place] [address] Jun, [facility] [place] [facility] [address] [facility] [id number], [place] [address] Jun, [facility] [address] [facility] [id number], [place] [id number] May, [facility] [place] [facility] [address] [facility] [id number], [place] [address] May, [facility] [address] [facility] [id number], [place] [id number] Apr, [facility] [place] [facility] [address] [facility] [id number], [place] [address] Apr, [facility] [address] [facility] [id number], [place] [id number] Mar, [facility] [place] [facility] [address] [facility] [id number], [place] [address] Mar, [facility] [address] [id number], [place] [id number] Mar, [facility] [place] [facility] [address] [facility] [id number], [place] [address] Mar, [facility] [address] [facility] [id number], [place] [id number] Mar, [facility] [place] [facility] [address] [facility] [id number], [place] [address] Mar, [facility] [address] [id number] [place] [id number] Mar, [facility] [place] [facility] [address] [id number], [place] [address] Mar, [facility] [address] [facility] [id number] [place] [id number] Feb, [facility] [place] [facility] [address] [facility] [id number], [place] [address] Feb, [facility] [address] [facility] [id number] [place] 004[address] Feb, [facility] [place] [facility] [address] [facility] [id number] [place] [address] Feb, [facility] [address] [facility] [id number] [place] [id number] Feb, [facility] [place] [facility] [address] [id number] [address] Feb, [facility] [address] [id number], [place] [id number] Jan, [facility] [place] [facility] [address] [facility] [id number][place] [address] Jan, [facility] [address] [facility] [id number], [place] [id number] Jan, [facility] [place] [facility] [address] [facility] [id number], [place] [address] Jan, [facility] [address] [facility] [id number], [place] [id number] Sep, [facility] [place] [facility] [address] [facility] [id number], [place] [address] Sep, [facility] [place] [facility] [address] [facility] [id number], [place] [address] Sep, [facility] [address] [facility] [id number], [place] [id number] Sep, [facility] [place] [facility] [address] [facility] [id number], [place] [address] Sep, [facility] [place] [facility] [address] [facility] [id number][place] [address] Sep, [facility] [address] [facility] [id number] [place] [id number] Jul, [facility] [place] [facility] [address] [facility] [id number] [place] [address] Jul, [facility] [address] [facility] [id number][place] [id number] Jun, [facility] [place] [facility] [address] [facility] [id number], [place] [address] Jun, [facility] [address] [facility] [id number] [place] [id number] Jun, [facility] [place] [facility] [address] [facility] [id number], [place] [address] Jun, [facility] [address] [id number], [place] [id number] Apr, [facility] [place] [facility] [address] [facility] [id number], [place] [address] Apr, [facility] [address] [facility] [id number], [place] [id number] Mar, [facility] [place] [facility] [address] [facility] [id number], [place] [address] Mar, [facility] [address] [facility] [id number], [place] [id number] Mar, [facility] [place] [facility] [address] [facility] [id number], [place] [address] Mar, [facility] [address] [facility] [id number][place] [id number] Feb, [facility] [address] [facility] [id number], [place] [address] Feb, [facility] [address] [facility] [id number][place] [id number] Jan, [facility] [address] [facility] [id number], [place] [address] Jan, [facility] [address] [id number] [place] [id number] 30 Dec, 2012 [facility] [address] [facility] [id number], [place] [address] 16 Dec, 2012 [facility] [address] [id number] [place] [id number] Dec, [facility] [address] [id number] [place] [id number] Dec, [facility] [address] [id number] [place] [id number] Oct, [facility] [address] [facility] [id number] [place] [id number] Oct, [facility] [address] [facility] [id number], [place] [address] Oct, [facility] [address] [id number][place] [id number] Oct, [facility] [address] [id number][place] [id number] Sep, [facility] [address] [id number] [place] [id number] August, [facility] [address] [id number][place] [id number] August, [facility] [address] [id number][place] [id number] August, [facility] [address] [id number] [place] [id number] Jul, [facility] [address] [facility] [id number], [place] [address] Jul, [facility] [address] [id number], [place] [id number] Jul, [facility] [address] [id number][place] [id number] Jun, [facility] [address] [facility] [id number], [place] [address] Jun, [facility] [address] [id number][place] [id number] Jun, [facility] [address] [id number][place] [id number] Jun, [facility] [id number] [place] [id number] Jun, [facility] [id number][place] [id number] Jun, [facility] [id number] [place] [id number] Jun, [facility] [id number] [place] [id number] Feb, [facility] [id number] [place] [place] [phone] Feb, [facility] [id number] [place] [phone] Jan, [facility] [id number] [place] [phone] Nov, [facility] [id number] [place] [phone] Oct, [facility] [id number] [place] [phone] Oct, [facility] [id number] [place] [phone] Sep, [facility] [id number] [place] [phone] Mar, [facility] [id number] [place] [phone] Nov, IMMUNIZATIONS No Known Immunizations SOCIAL HISTORY Never Assessed REASON FOR VISIT [facility] [place] PLAN OF CARE VITAL SIGNS MEDICATIONS Unknown [...] citrate for "blockage" 03/09/2016 Hospitalization History [facility] [place] anxiety 04/20/2018
--- OUTSIDE RECORDS SUMMARY | 2018-10-08 13:26 | XMS REPORT ---
Author Author Migration, Doctor Organization [facility] Address Unknown Phone Unavailable Care Team Providers Care Manifold Operator Name Role Phone Migration, Doctor Unavailable Unavailable PROBLEMS Type Condition ICD9-CM Code VEQ85-AI Code Onset Dates Condition Status SNOMED Code Problem Female stress incontinence 625.6 Active 25214305 Problem Chronic rhinitis J31.0 Active 81512053 Problem Nondependent tobacco use disorder 305.1 Active 812262855 Problem Chronic airway obstruction, not elsewhere classified J44.9 Active 47765262 Problem Essential hypertension I10 Active 06745898 Problem Overactive bladder N32.81 Active 695510340 Problem Lung nodule R91.1 Active 468008998 Problem Kidney stone N20.0 Active 65823404 Problem Hereditary and idiopathic neuropathy, 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 Active 05163248 Problem Sciatica of left side M54.32 Active 69837903 Problem Bipolar II disorder F31.81 Active 73046110 Problem Acute exacerbation of chronic obstructive pulmonary disease (COPD) J44.1 Active 599286427 Problem Chronic bronchitis, unspecified chronic bronchitis type J42 Active 11942248 Problem CAP (community acquired pneumonia) J18.9 Active 371907673 Problem Back pain with left-sided radiculopathy M54.10 Active 859456230 Problem PTSD (post-traumatic stress disorder) F43.10 Active 83209389 Problem 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 91667374 Problem Dysthymia F34.1 Active 22142250 ALLERGIES No Information ENCOUNTERS Encounter Location Date Diagnosis [facility] [address] [id number] [address] August, [facility] [address] [id number] [id number] Jul, [facility] [address] [address] Jul, [facility] [address] [id number] [id number] Jun, Morbid obesity E66.01 ; Chronic rhinitis J31.0 ; Essential hypertension I10 ; Chronic airway obstruction, not elsewhere classified J44.9 ; Acute cystitis without hematuria N30.00 and UTI (lower urinary tract infection) N39.0 [facility] [address] [address] Jun, Bipolar II disorder F31.81 ; 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 and PTSD (post-traumatic stress disorder) F43.10 [facility] [address] [id number][place] [id number] Jun, [id number] [place] [address] [id number] Jun, Hereditary and idiopathic neuropathy, 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 [facility] [address] [id number][place] [id number] Jun, [address] [place] [address] May, Bipolar II disorder F31.81 [address]005[address]100[place] [id number] May, BMI 45.0-49.9, adult Z68.42 ; Chronic rhinitis J31.0 ; Chronic airway obstruction, not elsewhere classified J44.9 and Hereditary and idiopathic neuropathy, 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 [address]00565100[place] [id number] May, [address] [place] [address] [id number] May, [facility] [address] [place] [address] May, Bipolar II disorder F31.81 and PTSD (post-traumatic stress disorder) F43.10 [facility] [address] [address] May, Bipolar II disorder F31.81 ; 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 and PTSD (post-traumatic stress disorder) F43.10 [facility] [address] [facility] [id number][place] [id number] Apr, BMI 45.0-49.9, adult Z68.42 ; Bipolar II disorder F31.81 and Chronic bronchitis, unspecified chronic bronchitis type J42 [address] [id number][place] [id number] Apr, Dysthymia F34.1 [facility] [address] [facility] [id number], [place] [id number] Apr, [facility] [address] [id number][place] [address] Apr, BMI 45.0-49.9, adult Z68.42 ; Bipolar II disorder F31.81 and Acute cystitis without hematuria N30.00 [facility] [address] [facility] [id number] [address] Apr, Bipolar II disorder F31.81 ; 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 and PTSD (post-traumatic stress disorder) F43.10 [facility] [address] [facility] [id number][place] [id number] Mar, [facility] [id number] [place] [address] [id number] Mar, Dysthymia F34.1 [facility] [address] [id number], [place] [address] Mar, BMI 45.0-49.9, adult Z68.42 ; Bipolar II disorder F31.81 ; Dysthymia F34.1 and Intertrigo L30.4 [facility] [address] [facility] [id number][place] [address] Mar, Bipolar II disorder F31.81 ; 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 and PTSD (post-traumatic stress disorder) F43.10 [facility] [address] [id number], [place] [id number] Feb, Dysthymia F34.1 and BMI 45.0-49.9, adult Z68.42 [facility] [id number] [place] [address] [id number] Feb, Dysthymia F34.1 ; Chronic rhinitis J31.0 ; Strain of lumbar region, subsequent encounter S39.012D and BMI 45.0-49.9, adult Z68.42 [facility] [id number] [place] [address] [id number] Jan, Encounter for immunization Z23 [facility] [id number] [place] [address] [id number] Jan, Dysthymia F34.1 [facility] [id number] [place] [address] Jan, PTSD (post-traumatic stress disorder) F43.10 and 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 [id number] [place] [address] [id number] Jan, BMI 45.0-49.9, adult Z68.42 and PTSD (post-traumatic stress disorder) F43.10 [facility] [id number] [place] [address] [id number] Jan, BMI 45.0-49.9, adult Z68.42 and Chronic airway obstruction, not elsewhere classified J44.9 [id number] [place] [address] [id number] Dec, PTSD (post-traumatic stress disorder) F43.10 ; Chronic airway obstruction, not elsewhere classified J44.9 ; Dysthymia F34.1 and Thrush B37.0 [facility] [id number] [place] [address] [id number] Nov, Dysthymia F34.1 [facility] [address] [place] [address] Nov, PTSD (post-traumatic stress disorder) F43.10 and 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 [address] [place] [address] [id number] Nov, BMI 45.0-49.9, adult Z68.42 ; Strain of lumbar region, subsequent encounter S39.012D ; PTSD (post-traumatic stress disorder) F43.10 and Dysthymia F34.1 [facility] [place] [id number] [place] [address] [id number] Oct, [facility] [place] [id number] [place] [address] [id number] Oct, Dysthymia F34.1 and PTSD (post-traumatic stress disorder) F43.10 [facility] [place] [id number] [place] [address] [id number] Oct, BMI 45.0-49.9, adult Z68.42 ; Dysthymia F34.1 ; PTSD (post-traumatic stress disorder) F43.10 and Infective urethritis N34.[id number] [place] [address] [id number] Oct, Dysthymia F34.1 and PTSD (post-traumatic stress disorder) F43.[id number] [place] [address] [id number] Sep, Dysthymia F34.1 and PTSD (post-traumatic stress disorder) F43.10 [facility] [address] [id number] [place] [address] [id number] Sep, BMI 45.0-49.9, adult Z68.42 and Mood disorder F39 [facility] [id number] [place] [address] [id number] Sep, [id number] [place] [address] [id number] Sep, Dysthymia F34.1 [facility] [address] [place] [address] [id number] Sep, Mood disorder F39 [facility] [id number] [place] [address] [id number] August, Dysthymia F34.1 [facility] [place] [id number] [place] [address] [id number] August, Dysthymia F34.1 ; Chronic airway obstruction, not elsewhere classified J44.9 ; Back pain with left-sided radiculopathy M54.10 and BMI 45.0-49.9, adult Z68.42 [id number] [place] [address] [id number] Jul, Urinary tract infection without hematuria, site unspecified N39.0 and Fatigue, unspecified type R53.83 [id number] [place] [address] [id number] Jul, Chronic airway obstruction, not elsewhere classified J44.9 [id number] [place] [address] [id number] Jul, BMI 45.0-49.9, adult Z68.42 and Infective urethritis N34.2 [id number] [place] [address] [id number] Jul, [address] [id number] Jun, Back pain with left-sided radiculopathy M54.10 [id number] [place] [address] [id number] May, Chronic airway obstruction, not elsewhere classified J44.9 and Encounter for immunization Z23 [id number] [place] [address] [id number] Apr, BMI 45.0-49.9, adult Z68.42 ; Back pain with left-sided radiculopathy M54.10 ; Chronic airway obstruction, not elsewhere classified J44.9 and Dysthymia F34.1 [id number] [place] [address] [id number] Mar, Sciatica of left side M54.32 ; Back pain with left-sided radiculopathy M54.10 and Hereditary and idiopathic neuropathy, 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 [address] [place] [address] [id number] Mar, Flank pain R10.9 ; Urinary urgency R39.15 and Chronic airway obstruction, not elsewhere classified J44.9 [id number] [place] [address] [id number] Mar, Dysthymia F34.1 [facility] [address] [id number], [place] [id number] Feb, [facility] [address] [address] Feb, [facility] [id number], [place] [id number] Feb, Hematuria, unspecified type R31.9 ; Kidney stone N20.0 and BMI 40.0-44.9, adult Z68.41 [facility] [address] [place] [id number] [address] Feb, [facility] [address] [facility] [address] [id number], [place] [id number] Feb, [facility] [id number] [place] [address] [id number] Feb, [facility] [id number] [place] [address] [id number] Feb, Dysthymia F34.1 ; Encounter for immunization Z23 ; Acute nasopharyngitis J00 ; Chronic rhinitis J31.0 and Chronic airway obstruction, not elsewhere classified J44.9 [facility] [address] [id number] [address] Jan, Well woman exam Z01.419 ; Left breast lump N63.20 and BMI 40.0-44.9, adult Z68.41 [facility] [id number], [place] [id number] Jan, Muscle cramps R25.2 [facility] [id number], [place] [id number] Dec, Dysthymia F34.1 [facility] [id number] [place] [address] [id number] Dec, Muscle cramps R25.2 [facility] [id number], [place] [id number] Nov, Dysthymia F34.1 [facility] [id number], [place] [id number] Oct, [facility] [place] [id number] [place] [address] [id number] Oct, Chronic airway obstruction, not elsewhere classified J44.9 ; Moderate single current episode of major depressive disorder F32.1 ; Chronic rhinitis J31.0 and Muscle cramps R25.2 [facility] [place] [id number] [place] [address] [id number] Sep, Acute nasopharyngitis J00 [facility] [address] [id number] [address] Jun, Acute exacerbation of chronic obstructive pulmonary disease (COPD) J44.1 [facility] [place] [id number] [place] [address] [id number] Jun, Acute nasopharyngitis J00 [facility] [id number] [place] [address] [id number] Jun, [facility] [id number] [place] [address] Apr, [facility] [place] [id number] [place] [address] [id number] Mar, Acute nasopharyngitis J00 [facility] [id number] [place] [address] [id number] Mar, [facility] [place] [id number] [place] [address] [id number] Mar, [facility] [place] [id number] [place] [address] [id number] Feb, CAP (community acquired pneumonia) J18.9 and Chronic rhinitis J31.0 [facility] [place] [id number] [place] [address] [id number] Feb, CAP (community acquired pneumonia) J18.9 [facility] [place] [id number] [place] [address] [id number] Feb, CAP (community acquired pneumonia) J18.9 [facility] [place] [id number] [place] [address] [id number] Feb, [facility] [id number], [place] [id number] Jan, Mood disorder F39 [facility] [address] [id number] [address] Jan, [facility] [id number] [place] [address] [id number] Jan, Lung nodule R91.1 [facility] [id number] [place] [address] [id number] Jan, Lung nodule R91.1 [facility] [id number] [place] [address] [id number] Jan, Lung nodule R91.1 [facility] [id number] [place] [address] [id number] Jan, Lung nodule R91.1 [facility] [id number] [place] [address] [id number] Jan, [facility] [id number] [place] [address] [id number] Nov, Overactive bladder N32.81 ; Chronic airway obstruction, not elsewhere classified J44.9 and Essential hypertension I10 [facility] [id number] [place] [address] [id number] Oct, [place] [id number] [place] [address] [id number] Oct, Acute non-recurrent sinusitis, unspecified location J01.90 ; Cough R05 and Tobacco dependence F17.200 [facility] [id number] [place] [address] [id number] Sep, Overactive bladder N32.81 and Chronic airway obstruction, not elsewhere classified J44.9 [facility] [id number] [place] [address] [id number] August, Chronic airway obstruction, not elsewhere classified J44.9 ; Mood disorder F39 and Urinary frequency R35.0 [facility] [address] [place] [address] [id number] August, [facility] [id number] [place] [address] [id number] Jul, Lung nodule R91.1 ; Chronic airway obstruction, not elsewhere classified J44.9 and Urinary tract infection without hematuria, site unspecified N39.0 [facility] [place] [id number] [place] [address] [id number] Jul, Lung nodule R91.1 [facility] [place] [id number] [place] [address] [id number] Jul, [facility] [place] [id number] [place] [address] [id number] Jul, Diarrhea R19.7 and Lung nodule R91.1 [facility] [place] [id number] [place] [address] [id number] Apr, Upper respiratory tract infection, unspecified type J06.9 and COPD exacerbation J44.1 [facility] [id number] [place] [address] [id number] Mar, [facility] [place] [id number] [place] [address] [id number] Feb, Mood disorder F39 and Essential hypertension I10 [facility] [id number] [place] [address] [id number] Jan, Essential hypertension I10 ; Mood disorder F39 ; Chronic airway obstruction, not elsewhere classified J44.9 and Chronic rhinitis J31.0 [facility] [address] [place] [address] [id number] Jan, [address]00565100[place] [id number] Jan, [facility] [address] [facility] [id number], [place] [id number] Jan, [facility] [address] [place] [address] [id number] Jan, [facility] [place] [id number] [place] [address] [id number] Dec, Bronchitis [address] [place] [address] [id number] Dec, [facility] [address] [place] [address] [id number] Sep, Rhinitis 472.0 [facility] [address] [facility] [id number][place] [address] Jul, [facility] [address] [facility] [id number][place] [address] Jul, [facility] [address] [facility] [id number][place] [id number] Jun, [facility] [id number] [place] [address] Jun, [facility] [address] [facility] [id number][place] [address] Jun, [facility] [address] [facility] [id number] [place] [address] [id number] May, [facility] [address] [id number] [address] May, [facility] [id number], [place] [id number] Apr, [facility] [address]005[address]100[place] [address] Apr, [facility] [id number], [place] [id number] Mar, [facility] [address]100[place] [address] Mar, [facility] [address] [facility] [id number], [place] [id number] Mar, [facility] [address] [id number] [address] Mar, [facility] [address] [facility] [id number], [place] [id number] Mar, [facility] [address]005[address]100[place] [address] Mar, [facility] [address] [facility] [id number][place] [id number] Mar, [facility] [address]005[address]100[place] [address] Mar, [facility] [address] [id number] [place] [id number] Feb, [facility] [address] [id number][place] [address] Feb, [facility] [address] [id number] [place] [id number] Feb, [facility] [address] [facility] [id number][place] [address] Feb, [facility] [address] [id number] [place] [id number] Feb, [facility] [address] [facility] [id number][place] [address] Feb, [facility] [address] [id number] [place] [id number] Jan, [facility] [address]005[address]100[place] [address] Jan, [facility] [address] [facility] [id number][place] [id number] Jan, [facility] [address]00565100[place] [address] Jan, [facility] [address] [facility] [id number], [place] [id number] Sep, [facility] [address]005[address]100[place] [address] Sep, [facility] [address] [facility] [id number][place] [address] Sep, [facility] [address] [id number], [place] [id number] Sep, [facility] [address] [facility] [id number][place] [address] Sep, [facility] [address] [facility] [id number][place] [address] Sep, [facility] [address] [facility] [id number], [place] [id number] Jul, [facility] [address] [id number][place] [address] Jul, [facility] [address] [facility] [id number][place] [id number] Jun, [facility] [address] [facility] [id number][place] [address] Jun, [facility] [address] [id number], [place] [id number] Jun, [facility] [place] [facility] [address] [facility] [id number][place] [address] Jun, [facility] [address] [facility] [id number][place] [id number] Apr, [facility] [place] [facility] [id number] [address] Apr, [facility] [address] [facility] [id number][place] [id number] Mar, [facility] [place] [facility] [address] [id number] [address] Mar, [facility] [address] [facility] [id number][place] [id number] Mar, [facility] [place] [facility] [address] [id number] [address] Mar, [facility] [address] [facility] [id number][place] [id number] Feb, [facility] [place] [facility] [address] [facility] [id number][place] [address] Feb, [facility] [address] [facility] [id number][place] [id number] Jan, [facility] [place] [facility] [address] [facility] [id number][place] [address] Jan, [facility] [address] [facility] [id number][place] [id number] Dec, [facility] [place] [facility] [address] [facility] [id number] [place] [address] 16 Dec, 2012 [facility] [address] [id number] [place] [id number] Dec, [facility] [address] [id number] [place] [id number] Dec, [facility] [address] [id number] [place] [id number] Oct, [facility] [address] [facility] [id number] [place] [address] Oct, [facility] [place] [facility] [address] [id number] [place] [address] Oct, [facility] [address] [id number] [place] [id number] Oct, [facility] [address] [id number] [place] [id number] Sep, [facility] [address] [id number] [place] [id number] August, [facility] [address] [id number] [place] [id number] August, [facility] [address] [id number] [place] [id number] August, [facility] [address] [id number] [place] [id number] Jul, [facility] [address] [facility] [id number] [address] Jul, [facility] [address] [id number] [place] [id number] Jul, [facility] [address] [id number] [place] [id number] Jun, [facility] [address] [facility] [id number][place] [address] Jun, [facility] [address] [id number] [place] [id number] Jun, [facility] [address] [id number] [place] [id number] Jun, [facility] [address] [id number] [id number] Jun, [facility] [address] [id number] [place] [id number] Jun, [facility] [address] [id number] [place] [id number] Jun, [facility] [address] [id number] [place] [id number] Feb, [facility] [address] [facility] [id number] [place] [id number] Feb, [facility] [address] [id number] [place] [id number] Jan, [facility] [address] [id number] [place] [id number] Nov, [facility] [id number] [place] [id number] Oct, [facility] [id number] [id number] Oct, [facility] [id number] [place] [id number] Sep, [facility] [id number] [place] [phone] Mar, [facility] [id number] [place] [phone] Nov, IMMUNIZATIONS No Known Immunizations SOCIAL HISTORY Never Assessed REASON FOR VISIT EMR-[facility] PLAN OF CARE VITAL SIGNS MEDICATIONS Medication Instructions Dosage Frequency Start Date End Date Duration Status PredniSONE 20 mg 1 tablet by Oral route 2 times per day for 5 day(s) Jul, Active Doxycycline Hyclate 100 mg 1 tablet by Oral route 2 times per day for 10 days Jul, Active Zithromax Z-Wiley 250 mg take 2 tablets (500 mg) by oral route once daily for 1 day then 1 tablet (250 mg) by oral route once daily for 4 days Jun, Active Chlorthalidone 25 mg 1 tablet by Oral route 1 time per day May, Active Accolate 20 mg 1 tablet by Oral route 2 times per day 1hr before or 2hr after meals Sep, Active Flonase 50 mcg/actuation 1 sprays by Nasal route 2 times per day in each nostril Apr, Active PredniSONE 10 mg 4 tablet by Oral route 1 time per day x 3 d, 3 tabs po qd x 3 d, 2 tabs po qd x 3 d, 1 tabs po x 3 d Jun, Active Lisinopril 10 mg take 1 tablet by Oral route 2 times per day Feb, Active venlafaxine 37.5 mg 1 capsule by Oral route 2 times per day May, Active Doxycycline Monohydrate 100 mg 1 Tablet by Oral route 2 times per day Jun, Active Pyridium 100 mg 1 tablet by Oral route 3 times per day for 3 day(s) Sep, Active Promethazine-Codeine 6.25-10 mg/5 mL 5 mL by Oral route every 8 hoursPRNsevere cough Sep, Active Bactrim DS 800-160 mg 1 tablet by Oral route 2 times per day for 7 day(s) Sep, Active Cefdinir 300 mg take 1 capsule (300 mg) by oral route every 12 hours for 7 days Jun, Active Cipro 500 mg 1 tablet by Oral route every 12 hours for 5 day(s) Mar, Active Albuterol Sulfate 90 mcg/actuation 2 puffs by Inhalation route every 4-6 hours as needed PRN cough or wheezing Feb, Active Clonazepam 0.5 mg Take 0.5-1 tablet by Oral route 1 time per day PRN must last 30 days Sep, Active Ipratropium [place] 0.03 % 2 sprays by Nasal route 3 times per day Mar, Active RESULTS No Results PROCEDURES No Known procedures INSTRUCTIONS MEDICATIONS ADMINISTERED No Known Medications MEDICAL (GENERAL) HISTORY Type Description Date Medical History hypertension Medical History allergies Medical History chronic obstructive pulmonary disease (COPD) Medical History anxiety Medical History sciatica Medical History acid reflux Medical History Pneumococcal inj (2012) Medical History depression Surgical History cholecystectomy 1979 [facility] Hospitalization History [facility] x 3 days for stomach flu 07/24/15 Hospitalization History [facility] for [facility]-given mag citrate for "blockage" 03/09/2016 Hospitalization History [facility] [place] [place] anxiety 04/20/2018
--- NOTE | 2018-10-08 13:29 | ED General ---
General Stated Complaint: SOA Source of Information: Patient Exam Limitations: No Limitations History of Present Illness Date Seen by Provider: Oct 08, 2018 Time Seen by Provider: 13:28 Initial Comments To ER by private vehicle from home with reports of shortness of breath and cough since last night. She does have COPD. Family who accompanies her states that she seems very anxious and does have a history of anxiety. Timing/Duration: 1-2 Days Severity: Moderate Associated Systoms: Cough Allergies and Home Medications Allergies Coded Allergies: aspirin (Unverified Allergy, Unknown, 07/01/15) Penicillins (Unverified Adverse Reaction, Mild, N/V, 07/02/15) Home Medications Acetaminophen 500 Mg Tablet, 1,000 MG PO Q6H PRN, (Reported) TAKES 2 (500 MG) TABLETS Albuterol Sulfate 8.5 Gm Hfa.aer.ad, 2 PUFF IH Q4H PRN for SO, (Reported) Cetirizine Hcl 10 Mg Capsule, 10 MG PO DAILY, (Reported) Hydroxyzine HCl 25 Mg Tablet, 25-50 MG PO Q6H Prescribed by: SHANIA CORDOVA on 04/15/18 0323 Lisinopril 10 Mg Tab, 10 MG PO DAILY, (Reported) Omeprazole 40 Mg Capsule.dr, 40 MG PO DAILY, (Reported) Venlafaxine HCl 75 Mg Tab, 75 MG PO BID, (Reported) LAST FILLED 05/28/15 #60 Patient Home Medication List Home Medication List Reviewed: Yes Review of Systems Review of Systems Constitutional: see HPI EENTM: see HPI Respiratory: see HPI, cough Cardiovascular: no symptoms reported Genitourinary: no symptoms reported Musculoskeletal: no symptoms reported Skin: no symptoms reported Psychiatric/Neurological: No Symptoms Reported Past Djwuhsi-Tnukzq-Ekaljg Hx Patient Social History Type Used: Cigarettes 2nd Hand Smoke Exposure: Yes Recent Foreign Travel: No Contact w/Someone Who Travel: No Recent Hopitalizations: No Immunizations Up To Date Date of Pneumonia Vaccine: Jun 21, 2012 Seasonal Allergies Seasonal Allergies: No Past Medical History Surgeries: Yes (REFUGIO 1979) Gallbladder Respiratory: Yes (O2 AT HS AND PRN) COPD, Emphysema Currently Using CPAP: No Cardiac: No Neurological: No Reproductive Disorders: No Sexually Transmitted Disease: No HIV/AIDS: No Gastrointestinal: Yes (S/P JESENIA) Gastroesophageal Reflux, Gall Bladder Disease Musculoskeletal: No Endocrine: No Cancer: No Psychosocial: Yes Anxiety Integumentary: No Blood Disorders: No Family Medical History No Pertinent Family Hx Physical Exam Vital Signs Vital Signs - First Documented 10/08/18 13:15 Temp 97.4 Pulse 104 Resp 25 B/P (MAP) 80/67 (71) Pulse Ox 97 O2 Delivery Room Air Capillary Refill : Height, Weight, BMI Height: 5'7.00" Weight: 290lbs. 0.0oz. 131.876432sl; 44.79 BMI Method:Stated General Appearance: No Apparent Distress, WD/WN, Anxious Eyes: Bilateral Eye Normal Inspection, Bilateral Eye PERRL, Bilateral Eye EOMI Neck: Full Range of Motion, Normal Inspection Respiratory: No Accessory Muscle Use, No Respiratory Distress, Wheezing (a bit of wheezing in the left lung) Cardiovascular: Regular Rate, Rhythm, Normal Peripheral Pulses Gastrointestinal: Normal Bowel Sounds, Non Tender, Soft Extremity: Normal Capillary Refill, Normal Inspection Neurologic/Psychiatric: Alert, Oriented x3 Skin: Normal Color, Warm/Dry Progress/Results/Core Measures Suspected Sepsis SIRS Temperature: Pulse: Respiratory Rate: Laboratory Tests 10/08/18 13:27: White Blood Count 11.1H Blood Pressure / Mean: Laboratory Tests 10/08/18 13:27: Creatinine 0.71, INR Comment 0.9, Platelet Count 225, Total Bilirubin 0.5 Results/Orders Lab Results Laboratory Tests Test 10/08/18 13:27 Range/Units White Blood Count 11.1 H 4.3-11.0 10^3/uL Red Blood Count 4.66 4.35-5.85 10^6/uL Hemoglobin 13.7 11.5-16.0 G/DL Hematocrit 40 35-52 % Mean Corpuscular Volume 87 80-99 FL Mean Corpuscular Hemoglobin 29 25-34 PG Mean Corpuscular Hemoglobin Concent 34 32-36 G/DL Red Cell Distribution Width 13.0 10.0-14.5 % Platelet Count 225 130-400 10^3/uL Mean Platelet Volume 9.0 7.4-10.4 FL Neutrophils (%) (Auto) 62 42-75 % Lymphocytes (%) (Auto) 30 12-44 % Monocytes (%) (Auto) 7 0-12 % Eosinophils (%) (Auto) 1 0-10 % Basophils (%) (Auto) 0 0-10 % Neutrophils # (Auto) 6.9 1.8-7.8 X 10^3 Lymphocytes # (Auto) 3.3 1.0-4.0 X 10^3 Monocytes # (Auto) 0.8 0.0-1.0 X 10^3 Eosinophils # (Auto) 0.1 0.0-0.3 10^3/uL Basophils # (Auto) 0.0 0.0-0.1 10^3/uL Prothrombin Time 12.7 12.2-14.7 SEC INR Comment 0.9 0.8-1.4 Activated Partial Thromboplast Time 28 24-35 SEC D-Dimer 0.37 0.00-0.49 UG/ML Sodium Level 139 135-145 MMOL/L Potassium Level 3.2 L 3.6-5.0 MMOL/L Chloride Level 103 98-107 MMOL/L Carbon Dioxide Level 23 21-32 MMOL/L Anion Gap 13 5-14 MMOL/L Blood Urea Nitrogen 6 L 7-18 MG/DL Creatinine 0.71 0.60-1.30 MG/DL Estimat Glomerular Filtration Rate > 60 BUN/Creatinine Ratio 8 Glucose Level 120 H 70-105 MG/DL Calcium Level 9.2 8.5-10.1 MG/DL Corrected Calcium 9.2 8.5-10.1 MG/DL Magnesium Level 1.7 L 1.8-2.4 MG/DL Total Bilirubin 0.5 0.1-1.0 MG/DL Aspartate Amino Transf (AST/SGOT) 11 5-34 U/L Alanine Aminotransferase (ALT/SGPT) 9 0-55 U/L Alkaline Phosphatase 99 40-136 U/L Myoglobin 36.9 10.0-92.0 NG/ML Troponin I < 0.028 <0.028 NG/ML B-Type Natriuretic Peptide 18.9 <100.0 PG/ML Total Protein 6.0 L 6.4-8.2 GM/DL Albumin 4.0 3.2-4.5 GM/DL My Orders Orders - CHRISTOFER HU APRN Cbc With Automated Diff (10/08/18 13:19) Magnesium (10/08/18 13:19) Chest 1 View, Ap/Pa Only (10/08/18 13:19) Ekg Tracing (10/08/18 13:19) Cardiac Profile 1 (10/08/18 13:19) Comprehensive Metabolic Panel (10/08/18 13:19) Myoglobin Serum (10/08/18 13:19) Protime With Inr (10/08/18 13:19) Partial Thromboplastin Time (10/08/18 13:19) O2 (10/08/18 13:19) Monitor-Rhythm Ecg Trace Only (10/08/18 13:19) Lipid Panel (10/09/18 06:00) Ed Iv/Invasive Line Start (10/08/18 13:19) BNP (10/08/18 13:19) Fibrin Degradation Products (10/08/18 13:19) Methylprednisolone Sod Succ (Solu-Medrol (10/08/18 13:30) Albuterol/Ipra Inhalation Soln (Duoneb I (10/08/18 13:30) Lorazepam Injection (Ativan Injection) (10/08/18 13:30) Svn Small Volume Nebulizer (10/08/18 13:19) Ns Iv 1000 Ml (Sodium Chloride 0.9%) (10/08/18 13:30) Potassium Chloride (Tablet) (Klor Con Ta (10/08/18 14:00) Medications Given in ED Current Medications Medications Dose Ordered Sig/Brian Route Start Time Stop Time Status Last Admin Dose Admin Albuterol/ Ipratropium 3 ml ONCE ONCE INH 10/08/18 13:30 10/08/18 13:31 DC 10/08/18 13:24 3 ML Lorazepam 1 mg ONCE ONCE IVP 10/08/18 13:30 10/08/18 13:31 DC 10/08/18 13:27 1 MG Methylprednisolone Sodium Succinate 125 mg ONCE ONCE IVP 10/08/18 13:30 10/08/18 13:31 DC 10/08/18 13:33 125 MG Vital Signs/I&O 10/08/18 13:15 Temp 97.4 Pulse 104 Resp 25 B/P (MAP) 80/67 (71) Pulse Ox 97 O2 Delivery Room Air Capillary Refill : Departure Impression Primary Impression: COPD exacerbation Additional Impression: Anxiety Disposition: 01 HOME, SELF-CARE Condition: Stable Departure-Patient Inst. Decision time for Depature: 14:06 Referrals: SHIVANI DIGGS DO (PCP) Primary Care Physician KATERINA SMITH (Family) Primary Care Physician Patient Instructions: Exacerbation of COPD (DC) Add. Discharge Instructions: 1. Medication as directed 2. Follow-up with your doctor next week 3. Return to ER for any concerns. Scripts Lorazepam (Lorazepam) 0.5 Mg Tablet 0.5 MG PO BID PRN for ANXIETY, #6 TAB Prov: CHRISTOFER HU APRN 10/08/18 Cefuroxime Axetil (Cefuroxime) 250 Mg Tablet 250 MG PO BID, #10 TAB Prov: CHRISTOFER HU APRN 10/08/18 Prednisone (Prednisone) 20 Mg Tab 40 MG PO DAILY, #8 TAB 0 Refills Prov: CHRISTOFER HU APRN 10/08/18 CHRISTOFER HU APRN Oct 08, 2018 13:29
[2018-10-08] MEDS ORDERED: methylPREDNISolone 125 MG (Solu-MEDROL) VIAL IVP ONE (13:30)
[2018-10-08] MEDS ORDERED: LORazepam INJ 2 MG/ML (ATIVAN) VIAL IVP ONE (13:30)
[2018-10-08] MEDS ORDERED: RT-ALBUTEROL/IPRATROPIUM 3 ML (DUONEB) VIAL INH ONE (13:30)
[2018-10-08] MEDS ORDERED: NS IV 1000 ML 1,000 ML IV SCH (13:30)
[2018-10-08 13:34] LABS: BASOPHILS % (AUTO) 0 % (0-10); EOSINOPHILS # (AUTO) 0.1 10^3/uL (0.0-0.3); EOSINOPHILS % (AUTO) 1 % (0-10); HEMATOCRIT 40 % (35-52); HEMOGLOBIN 13.7 G/DL (11.5-16.0); LYMPHOCYTES # (AUTO) 3.3 X 10^3 (1.0-4.0); LYMPHOCYTES % (AUTO) 30 % (12-44); MEAN CORPUSCULAR HEMOGLOBIN 29 PG (25-34); MEAN CORPUSCULAR HGB CONC 34 G/DL (32-36); MEAN CORPUSCULAR VOLUME 87 FL (80-99); MONOCYTES # (AUTO) 0.8 X 10^3 (0.0-1.0); MONOCYTES % (AUTO) 7 % (0-12); NEUTROPHILS # (AUTO) 6.9 X 10^3 (1.8-7.8); NEUTROPHILS % (AUTO) 62 % (42-75); PLATELET COUNT 225 10^3/uL (130-400); WHITE BLOOD COUNT 11.1 10^3/uL (4.3-11.0)
[2018-10-08 13:44] LABS: INR 0.9 (0.8-1.4); PROTHROMBIN TIME PATIENT 12.7 SEC (12.2-14.7)
--- OUTSIDE RECORDS SUMMARY | 2018-10-08 13:44 | XMS REPORT | Continuity of Care Document ---
Author Organization Unknown Address Unknown Allergies Active Description Code Type Severity Reaction Onset Reported/Identified Relationship to Patient Clinical Status Yes aspirin Drug Allergy N/A N/A 10/04/2008 Yes Penicillins Drug Allergy N/A N/A 10/04/2008 Yes aspirin Drug Allergy 10/04/2008 Yes Penicillins Drug Allergy 10/04/2008 Yes PENCILLIN PENCILLIN Mild N V 12/14/2010 Yes lisinopril 10 mg tablet Drug Allergy N/A N/A 01/02/2013 Yes aspirin [id number] Drug Allergy Unknown N/A 07/01/2015 Yes Penicillins [id number] Drug Allergy Mild N/V 07/02/2015 Medications There is no data. Problems Date Dx Coded Attending Type Code [...] UNSPECIFIED SITE 10/04/2008 466.0 ACUTE BRONCHITIS 10/04/2008 SHIVANI DIGGS DO 465.9 ACUTE UPPER RESPIRATORY INFECTIONS OF UNSPECIFIED SITE 10/04/2008 DIGGS DO, SHIVANI K 466.0 ACUTE BRONCHITIS 10/04/2008 DIGGS DO, SHIVANI K 465.9 ACUTE UPPER RESPIRATORY INFECTIONS OF UNSPECIFIED SITE 10/04/2008 DIGGS DO, SHIVANI K 466.0 ACUTE BRONCHITIS 10/04/2008 SMITH DIGITAL DEVELOPER, KATERINA R 465.9 ACUTE UPPER RESPIRATORY INFECTIONS OF UNSPECIFIED SITE 10/04/2008 SMITH DIGITAL DEVELOPER, KATERINA R 466.0 ACUTE BRONCHITIS 10/04/2008 SMITH DIGITAL DEVELOPER, KATERINA R 465.9 ACUTE UPPER RESPIRATORY INFECTIONS OF UNSPECIFIED SITE 10/04/2008 SMITH DIGITAL DEVELOPER, KATERINA R 466.0 ACUTE BRONCHITIS 10/04/2008 SMITH DIGITAL DEVELOPER, KATERINA R 465.9 ACUTE UPPER RESPIRATORY INFECTIONS OF UNSPECIFIED SITE 10/04/2008 SMITH DIGITAL DEVELOPER, KATERINA R 466.0 ACUTE BRONCHITIS 10/04/2008 DIGGS DO, SHIVANI K 465.9 ACUTE UPPER RESPIRATORY INFECTIONS OF UNSPECIFIED SITE 10/04/2008 DIGGS DO, SHIVANI K 466.0 ACUTE BRONCHITIS 10/04/2008 DIGGS DO, SHIVANI K 465.9 ACUTE UPPER RESPIRATORY INFECTIONS OF UNSPECIFIED SITE 10/04/2008 DIGSG DO, SHIVANI K 466.0 ACUTE BRONCHITIS 10/04/2008 [...] DIGGS DO, SHIVANI K 466.0 ACUTE BRONCHITIS 05/25/2010 Ot 789.06 ABDOMINAL PAIN, EPIGASTRIC 06/09/2010 530.81 GERD 06/09/2010 553.3 hiatal hernia 06/09/2010 SMITH KATERINA THRASHER R 530.81 GERD 06/09/2010 SMITH DIGITAL DEVELOPERKATERINA Julian R 553.3 hiatal hernia 06/09/2010 SMITH DIGITAL DEVELOPERKATERINA R 530.81 GERD 06/09/2010 KATERINA SMITH APRN 553.3 hiatal hernia 06/09/2010 530.81 GERD 06/09/2010 553.3 hiatal hernia 06/09/2010 530.81 GERD 06/09/2010 553.3 hiatal hernia 06/09/2010 530.81 GERD 06/09/2010 553.3 hiatal hernia 06/09/2010 530.81 GERD 06/09/2010 553.3 hiatal hernia 06/09/2010 530.81 GERD 06/09/2010 553.3 hiatal hernia 06/09/2010 DIGGS DO, SHIVANI K 530.81 GERD 06/09/2010 DIGGS DO, SHIVANI K 553.3 hiatal hernia 06/09/2010 DIGGS DO, SHIVANI K 530.81 GERD 06/09/2010 DIGGS DO, SHIVANI K 553.3 hiatal hernia 06/09/2010 KATERINA SMITH APRN R 530.81 GERD 06/09/2010 SMITH KATERINA THRASHER 553.3 hiatal hernia 06/09/2010 SMITH KATERINA THRASHER R 530.81 GERD 06/09/2010 SMITH KATERINA THRASHER R 553.3 hiatal hernia 06/09/2010 SMITH PRICE, KATERINA R 530.81 GERD 06/09/2010 SMITH KATERINA THRASHER R 553.3 hiatal hernia 06/09/2010 DIGGS DO, [...] hernia 11/13/2010 401.1 HYPERTENSION, BENIGN ESSENTIAL 11/13/2010 LUIS SHARPKATERINA Julian R 401.1 HYPERTENSION, BENIGN ESSENTIAL 11/13/2010 LUIS KATERINA THRASHER R 401.1 HYPERTENSION, BENIGN ESSENTIAL 11/13/2010 401.1 HYPERTENSION, BENIGN ESSENTIAL 11/13/2010 401.1 HYPERTENSION, BENIGN ESSENTIAL 11/13/2010 401.1 HYPERTENSION, BENIGN ESSENTIAL 11/13/2010 401.1 HYPERTENSION, BENIGN ESSENTIAL 11/13/2010 401.1 HYPERTENSION, BENIGN ESSENTIAL 11/13/2010 DIGGS DO, SHIVANI K 401.1 HYPERTENSION, BENIGN ESSENTIAL 11/13/2010 DIGGS DO, SHIVANI K 401.1 HYPERTENSION, BENIGN ESSENTIAL 11/13/2010 LUIS SHARPKATERINA Julian R 401.1 HYPERTENSION, BENIGN ESSENTIAL 11/13/2010 LUIS SHARPN, KATERINA R 401.1 HYPERTENSION, BENIGN ESSENTIAL 11/13/2010 LUIS SHARPKATERINA Julian R 401.1 HYPERTENSION, BENIGN ESSENTIAL 11/13/2010 DIGGS [...] K 719.44 PAIN IN JOINT INVOLVING HAND 12/14/2010 [...] FEMALE 09/25/2011 625.6 STRESS INCONTINENCE FEMALE 09/25/2011 DIGGS DO, SHIVANI K 625.6 STRESS INCONTINENCE FEMALE 09/25/2011 DIGGS DO, SHIVANI K 625.6 STRESS INCONTINENCE FEMALE 09/25/2011 KATERINA SMITH APRN 625.6 STRESS INCONTINENCE FEMALE 09/25/2011 KATERINA SMITH APRN 625.6 STRESS INCONTINENCE FEMALE 09/25/2011 KATERINA SMITH APRN 625.6 STRESS INCONTINENCE FEMALE 09/25/2011 DIGGS DO, SHIVANI K 625.6 STRESS INCONTINENCE FEMALE 09/25/2011 DIGGS DO, SHIVANI K 625.6 STRESS INCONTINENCE FEMALE 09/25/2011 DIGGS DO, SHIVANI K 625.6 STRESS INCONTINENCE FEMALE 09/25/2011 DIGGS DO, SHIVANI K 625.6 STRESS INCONTINENCE FEMALE 09/25/2011 DIGGS DO, SHIVANI K 625.6 STRESS INCONTINENCE FEMALE 09/25/2011 DIGGS DO, SHIVANI K 625.6 STRESS INCONTINENCE FEMALE 10/09/2011 305.1 [...] V77.1 SCREENING FOR DIABETES MELLITUS 10/09/2011 DIGGS DO, SHIVANI K 305.1 NONDEPENDENT TOBACCO USE DISORDER 10/09/2011 DIGGS DO, SHIVANI K V77.1 SCREENING FOR DIABETES MELLITUS 10/09/2011 DIGGS DO, SHIVANI K 305.1 NONDEPENDENT TOBACCO USE DISORDER 10/09/2011 DIGGS DO, SHIVANI K V77.1 SCREENING FOR DIABETES MELLITUS [...] APRN V77.1 SCREENING FOR DIABETES MELLITUS 10/09/2011 DIGGS DO, SHIVANI K 305.1 NONDEPENDENT TOBACCO USE DISORDER 10/09/2011 DIGGS DO, SHIVANI K V77.1 SCREENING FOR DIABETES MELLITUS 10/09/2011 DIGGS DO, SHIVANI K 305.1 NONDEPENDENT TOBACCO USE DISORDER 10/09/2011 DIGGS DO, SHIVANI K V77.1 SCREENING FOR DIABETES MELLITUS 10/09/2011 DIGGS DO, SHIVANI K 305.1 NONDEPENDENT TOBACCO USE DISORDER 10/09/2011 DIGGS DO, SHIVANI K V77.1 SCREENING FOR DIABETES MELLITUS 10/09/2011 DIGGS DO, SHIVANI K 305.1 NONDEPENDENT TOBACCO USE DISORDER 10/09/2011 DIGGS DO, SHIVANI K V77.1 SCREENING FOR DIABETES MELLITUS 10/09/2011 DIGGS DO, SHIVANI K 305.1 NONDEPENDENT TOBACCO USE DISORDER 10/09/2011 DIGGS DO, SHIVANI K V77.1 SCREENING FOR DIABETES MELLITUS 10/09/2011 DIGGS DO, SHIVANI K 305.1 NONDEPENDENT TOBACCO USE DISORDER 10/09/2011 DIGGS DO, SHIVANI K V77.1 SCREENING FOR DIABETES MELLITUS 10/21/2011 033.9 WHOOPING COUGH UNSPECIFIED ORGANISM 10/21/2011 KATERINA SMITH APRN 033.9 WHOOPING COUGH UNSPECIFIED ORGANISM 10/21/2011 KATERINA SMITH APRN 033.9 WHOOPING COUGH UNSPECIFIED ORGANISM 10/21/2011 033.9 WHOOPING COUGH UNSPECIFIED ORGANISM 10/21/2011 033.9 WHOOPING COUGH UNSPECIFIED ORGANISM 10/21/2011 033.9 WHOOPING COUGH UNSPECIFIED ORGANISM 10/21/2011 033.9 WHOOPING COUGH UNSPECIFIED ORGANISM 10/21/2011 033.9 WHOOPING COUGH UNSPECIFIED ORGANISM 10/21/2011 DIGGS DO, SHIVANI K 033.9 WHOOPING COUGH UNSPECIFIED ORGANISM 10/21/2011 DIGGS DO, SHIVANI K 033.9 WHOOPING COUGH UNSPECIFIED ORGANISM 10/21/2011 KATERINA SMITH APRN 033.9 WHOOPING COUGH UNSPECIFIED ORGANISM 10/21/2011 KATERINA SMITH APRN 033.9 WHOOPING COUGH UNSPECIFIED ORGANISM 10/21/2011 KATERINA SMITH APRN 033.9 WHOOPING COUGH UNSPECIFIED ORGANISM 10/21/2011 DIGGS [...] 01/08/2012 KATERINA SMITH APRN 724.3 SCIATICA 01/08/2012 724.2 BACK PAIN, [...] DIGGS DO, SHIVANI K 724.3 SCIATICA 01/08/2012 SMITHKATERINA ALONSO APRN R 724.2 BACK PAIN, LOWER 01/08/2012 SMITH KATERINA THRASHER R 724.3 SCIATICA 01/08/2012 LUIS THRASHER, KATERINA R 724.2 BACK PAIN, LOWER 01/08/2012 SMITH KATERINA THRASHER R 724.3 SCIATICA 01/08/2012 KATERINA SMITH APRN R 724.2 BACK PAIN, LOWER 01/08/2012 KATERINA SMITH APRN R 724.3 SCIATICA 01/08/2012 DIGGS DO, SHIVANI K [...] SMITH APRN 079.99 VIRAL SYNDROME 06/10/2012 DIGGS DO, SHIVANI K 079.99 VIRAL SYNDROME 06/10/2012 DIGGS DO, SHIVANI K 079.99 VIRAL SYNDROME 06/10/2012 DIGGS DO, SHIVANI K 079.99 VIRAL SYNDROME 06/10/2012 DIGGS DO, SHIVANI K 079.99 VIRAL SYNDROME 06/10/2012 DIGGS XIOMARA HARPERA K 079.99 VIRAL SYNDROME 06/10/2012 SHIVANI DIGGS DO K 079.99 VIRAL SYNDROME 06/16/2012 Ot 305.1 [...] fatigue 06/20/2012 786.05 SHORTNESS OF BREATH 06/20/2012 SHIVANI DIGGS DO 780.79 fatigue 06/20/2012 SHIVANI DIGGS DO 786.05 SHORTNESS OF BREATH 06/20/2012 SHIVANI DIGGS DO 780.79 fatigue 06/20/2012 SHIVANI DIGGS DO 786.05 SHORTNESS OF BREATH 06/20/2012 KATERINA SMITH APRN 780.79 fatigue 06/20/2012 LUIS SHARPKATERINA Julian 786.05 SHORTNESS OF BREATH 06/20/2012 LUIS SHARPKATERINA Julian 780.79 fatigue 06/20/2012 LUIS SHARPKATERINA Julian 786.05 SHORTNESS OF BREATH 06/20/2012 LUIS SHARPKATERINA Julian 780.79 fatigue 06/20/2012 LUIS SHARPKATERINA Julian 786.05 SHORTNESS OF BREATH 06/20/2012 DIGGS DO, [...] Ot V03.82 PROPHYLACTIC VACC AGAINST STREPTOCOCCUS 06/27/2012 SMITH KATERINA THRASHER 486 PNEUMONIA UNSPECIFIED 06/27/2012 486 PNEUMONIA UNSPECIFIED 06/27/2012 486 PNEUMONIA UNSPECIFIED 06/27/2012 486 PNEUMONIA UNSPECIFIED 06/27/2012 486 PNEUMONIA UNSPECIFIED 06/27/2012 486 PNEUMONIA UNSPECIFIED 06/27/2012 DIGGS DO, SHIVANI K 486 PNEUMONIA UNSPECIFIED 06/27/2012 DIGGS DO, SHIVANI K 486 PNEUMONIA UNSPECIFIED 06/27/2012 SMITH DIGITAL DEVELOPERKATERINA R 486 PNEUMONIA UNSPECIFIED 06/27/2012 SMITH DIGITAL DEVELOPER, KATERINA R 486 PNEUMONIA UNSPECIFIED 06/27/2012 SMITH DIGITAL DEVELOPER, KATERINA R 486 PNEUMONIA UNSPECIFIED 06/27/2012 DIGGS DO, [...] 08/09/2012 381.81 DYSFUNCTION OF EUSTACHIAN TUBE 08/09/2012 DIGGS DO, SHIVANI K 381.81 DYSFUNCTION OF EUSTACHIAN TUBE 08/09/2012 DIGGS DO, SHIVANI K 381.81 DYSFUNCTION OF EUSTACHIAN TUBE 08/09/2012 SMITH DIGITAL DEVELOPERKATERINA Julian R 381.81 DYSFUNCTION OF EUSTACHIAN TUBE 08/09/2012 SMITH DIGITAL DEVELOPERKATERINA Julian 381.81 DYSFUNCTION OF EUSTACHIAN TUBE 08/09/2012 SMITH DIGITAL DEVELOPERKATERINA Julian R 381.81 DYSFUNCTION OF EUSTACHIAN TUBE 08/09/2012 DIGGS [...] DISEASES OF LUNG NOT ELSEWHERE CLASSIFIED 09/07/2012 SHIVANI DIGGS DO 518.89 OTHER DISEASES OF LUNG NOT ELSEWHERE CLASSIFIED 09/07/2012 DIGGS DO, SHIVANI K 518.89 OTHER DISEASES OF LUNG NOT ELSEWHERE CLASSIFIED 09/07/2012 SMITH DIGITAL DEVELOPERKATERINA Julian R 518.89 OTHER DISEASES OF LUNG NOT ELSEWHERE CLASSIFIED 09/07/2012 SMITH DIGITAL DEVELOPERKATERINA R 518.89 OTHER DISEASES OF LUNG NOT ELSEWHERE CLASSIFIED 09/07/2012 SMITH DIGITAL DEVELOPERKATERINA R 518.89 OTHER DISEASES OF LUNG NOT [...] DO, SHIVANI K 787.29 OTHER DYSPHAGIA 10/14/2012 KATERINA SMITH APRN R 787.29 OTHER DYSPHAGIA 10/14/2012 SMITH KATERINA THRASHER R 787.29 OTHER DYSPHAGIA 10/14/2012 SMITH DIGITAL DEVELOPERKATERINA Julian R 787.29 OTHER DYSPHAGIA 10/14/2012 DIGGS DO, [...] UNSPECIFIED NONINFECTIOUS GASTROENTERITIS AND COLITIS 10/25/2012 SMITH DIGITAL DEVELOPERKATERINA R 558.9 OTHER AND UNSPECIFIED NONINFECTIOUS GASTROENTERITIS AND COLITIS 10/25/2012 SMITH DIGITAL DEVELOPER, KATERINA R 558.9 OTHER AND UNSPECIFIED NONINFECTIOUS GASTROENTERITIS AND COLITIS 10/25/2012 SMITH DIGITAL DEVELOPERKATERINA R 558.9 OTHER AND UNSPECIFIED NONINFECTIOUS GASTROENTERITIS [...] UNSPECIFIED NONINFECTIOUS GASTROENTERITIS AND COLITIS 02/13/2013 SMITH DIGITAL DEVELOPERKATERINA Julian R V04.81 FLU SHOT 02/13/2013 SMITH DIGITAL DEVELOPERKATERINA R V04.81 FLU SHOT 02/13/2013 SMITH DIGITAL DEVELOPERKATERINA R V04.81 FLU SHOT 02/13/2013 DIGGS DO, SHIVANI K V04.81 FLU SHOT 02/13/2013 DIGGS DO, SHIVANI K V04.81 FLU SHOT 02/13/2013 DIGGS DO, SHIVANI K V04.81 FLU SHOT 02/13/2013 DIGGS DO, SHIVANI K V04.81 FLU SHOT 02/13/2013 DIGGS DO, SHIVANI K V04.81 FLU SHOT 02/13/2013 DIGGS DO, SHIVANI K V04.81 FLU SHOT 04/27/2013 SMITH DIGITAL DEVELOPERKATERINA Julian R 461.9 SINUSITIS ACUTE 04/27/2013 SMITH DIGITAL DEVELOPERKATERINA R 461.9 SINUSITIS ACUTE 04/27/2013 DIGGS DO, SHIVANI K 461.9 SINUSITIS ACUTE 04/27/2013 DIGGS DO, SHIVANI K 461.9 SINUSITIS ACUTE 04/27/2013 DIGGS DO, SHIVANI K 461.9 SINUSITIS ACUTE 04/27/2013 DIGGS DO, SHIVANI K 461.9 SINUSITIS ACUTE 04/27/2013 DIGGS DO, SHIVANI K 461.9 SINUSITIS ACUTE 04/27/2013 DIGGS DO, SHIVANI K 461.9 SINUSITIS ACUTE 09/04/2013 SMITH KATERINA THRASHER R 308.3 AN ACUTE STRESS DISORDER 09/04/2013 [...] SHIVANI K 599.0 URINARY TRACT INFECTION 03/19/2014 DIGGS DO, SHIVANI K 599.0 URINARY TRACT INFECTION 03/19/2014 DIGGS DO, SHIVANI K 599.0 URINARY TRACT INFECTION 06/29/2014 DIGGS DO, SHIVANI K 461.0 ACUTE MAXILLARY SINUSITIS 07/01/2015 Ot [...] OBSTRUCTIVE PULMONARY DISEASE, U 07/03/2015 LAZARO MEJIAS MD Ot L50.9 URTICARIA, UNSPECIFIED 07/03/2015 LAZARO MEJIAS [...] 12/31/2016 Ot 793.11 SOLITARY PULMONARY NODULE 12/31/2016 BRYSON COTTRELL TOLYNN T Ot 496 CHR AIRWAY OBSTRUCT NEC 12/31/2016 BRYSON COTTRELL TOAAYUSHIC T Ot 793.11 SOLITARY PULMONARY NODULE 01/14/2017 Ot 793.11 SOLITARY PULMONARY NODULE 01/14/2017 WEN MASSEY MD T Ot 496 CHR AIRWAY OBSTRUCT NEC 01/14/2017 WEN MASSEY MD T Ot 793.11 SOLITARY PULMONARY NODULE 01/15/2017 Ot 793.11 SOLITARY PULMONARY NODULE 01/15/2017 WEN MASSEY MD T Ot 496 CHR AIRWAY OBSTRUCT NEC 01/15/2017 BRYSON COTTRELL TOLYNN T Ot 793.11 SOLITARY PULMONARY NODULE 02/01/2017 KATERINA SMITH CFNP Ot R91.1 SOLITARY PULMONARY NODULE 02/01/2017 SMITHKATERINA CFJIMENEZ Ot R91.1 SOLITARY PULMONARY NODULE 02/16/2017 BARNIDGE DOPANDA Ot Z12.31 ENCNTR SCREEN MAMMOGRAM FOR MALIGNANT NE 02/18/2017 BARNIDGE DO, PANDA Albright Ot K57.30 DVRTCLOS OF LG INT W/O PERFORATION OR AB 02/18/2017 BARNIDGE DO, PANDA E Ot R19.03 RIGHT LOWER QUADRANT ABDOMINAL SWELLING, 02/18/2017 BARNIDGE DO, PANDA E Ot R91.1 SOLITARY PULMONARY NODULE 03/04/2017 BARNIDGE DO, PANDA Albright Ot K57.30 DVRTCLOS OF LG INT W/O PERFORATION OR AB 03/04/2017 BARNIDGE DO, PANDA Albright Ot R19.03 RIGHT LOWER QUADRANT ABDOMINAL SWELLING, 03/04/2017 BARNIDGE DO, PANDA Albright Ot R91.1 SOLITARY PULMONARY NODULE 07/27/2017 Ot 793.11 SOLITARY PULMONARY NODULE 07/27/2017 BRYSON COTTRELL, TOAAYUSHIC T Ot 496 CHR AIRWAY OBSTRUCT NEC 07/27/2017 BRYSON COTTRELL TOLYNN T Ot 793.11 SOLITARY PULMONARY NODULE 12/31/2017 SMITHKATERINA CFNP Ot R91.1 SOLITARY PULMONARY NODULE 12/31/2017 SMITHKATERINA CFNP Ot R91.1 SOLITARY PULMONARY NODULE 12/31/2017 BARNIDGE DOPANDA Ot Z12.31 ENCNTR SCREEN MAMMOGRAM FOR MALIGNANT NE 12/31/2017 BARNIDGE DOPANDA Ot K57.30 DVRTCLOS OF LG INT W/O PERFORATION OR AB 12/31/2017 BARNIDGE DO, PANDA Albrgiht Ot R19.03 RIGHT LOWER QUADRANT ABDOMINAL SWELLING, 12/31/2017 BARNIDGPANDA Albright DO Ot R91.1 SOLITARY PULMONARY NODULE 01/19/2018 SMITHKATERINA CFNP Ot R91.1 SOLITARY PULMONARY NODULE 01/19/2018 SMITHKATREINA CFNP Ot R91.1 SOLITARY PULMONARY NODULE 01/19/2018 BARNIDGE DOPANDA Ot Z12.31 ENCNTR SCREEN MAMMOGRAM FOR MALIGNANT NE 01/19/2018 PANDA CARTAGENA DO Ot K57.30 DVRTCLOS OF LG INT W/O PERFORATION OR AB 01/19/2018 PANDA CARTAGENA DO Ot R19.03 RIGHT LOWER QUADRANT ABDOMINAL SWELLING, 01/19/2018 PANDA CARTAGENA DO Ot R91.1 SOLITARY PULMONARY NODULE 01/23/2018 CHRYSTAL COTTRELL, LINDA Jung Ot Z02.71 ENCOUNTER FOR DISABILITY DETERMINATION 03/15/2018 LINDA JARRELL MD Ot Z02.71 ENCOUNTER FOR DISABILITY DETERMINATION 04/15/2018 SHANIA CORDOVA DO Ot F41.9 ANXIETY DISORDER, UNSPECIFIED 04/15/2018 SHANIA CORDOVA DO Ot J43.9 EMPHYSEMA, UNSPECIFIED 04/15/2018 SHANIA CORDOVA DO Ot K21.9 GASTRO-ESOPHAGEAL REFLUX DISEASE WITHOUT 04/15/2018 SHANIA CORDOVA DO Ot R13.10 DYSPHAGIA, UNSPECIFIED 04/15/2018 SHANIA CORDOVA DO Ot 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 04/15/2018 SHANIA CORDOVA DO Ot Z87.891 PERSONAL HISTORY OF NICOTINE DEPENDENCE 04/15/2018 SHANIA CORDOVA DO Ot Z88.0 ALLERGY STATUS TO PENICILLIN 04/15/2018 SHANIA CORDOVA DO Ot Z88.6 ALLERGY STATUS TO ANALGESIC AGENT STATUS 04/15/2018 SHANIA CORDOVA DO Ot Z99.81 DEPENDENCE ON SUPPLEMENTAL OXYGEN 04/21/2018 LINDA JARRELL MD, Ot Z02.71 ENCOUNTER FOR DISABILITY DETERMINATION Procedures Code [place] [address] INFLUENZA A & B (IN-HOUSE) 06/10/2012 28990 NEBULIZER TREATMENT 06/20/[address] CHEST W/DYE 06/27/2012 18407 CREATININE 06/27/2012 41368 BUN 06/27/2012 89934 CBC 06/27/[address] 06/29/2012 35746 UA LONG DIP 09/26/2013 86127 UA LONG DIP 03/19/2014 Results Test Result Range SUREPATH PAP AND HPV mRNA E6/E7 - 02/01/17 13:41 CLINICAL INFORMATION: NRG LMP: NRG PREV. PAP: NORMAL NRG PREV. BX: NONE NRG SOURCE: [employer] NRG STATEMENT OF ADEQUACY: NR INTERPRETATION/RESULT: NR RECRUITING AND SELECTION CONSULTANT: NRG HPV mRNA E6/E7, SUREPATH VIAL Not [...] 10.2 fL 7.5-12.5 ABSOLUTE NEUTROPHILS 7357 cells/uL 4388-5291 ABSOLUTE LYMPHOCYTES 5138 cells/uL 850-3900 ABSOLUTE MONOCYTES 1028 cells/uL 200-950 ABSOLUTE EOSINOPHILS 96 cells/uL 15-500 ABSOLUTE BASOPHILS 82 cells/uL 0-200 NEUTROPHILS 53.7 % NRG LYMPHOCYTES 37.5 % NRG MONOCYTES 7.5 % NRG EOSINOPHILS 0.7 % NRG BASOPHILS 0.6 % NRG CULTURE, URINE - 02/11/17 15:34 CULTURE, URINE, ROUTINE SEE NOTE NR Complete blood count (CBC) with automated white blood cell (WBC) differential - 04/15/18 01:23 Blood leukocytes automated count (number/volume) 7.6 10*3/uL 4.3-11.0 Blood erythrocytes automated count (number/volume) 4.67 10*6/uL 4.35-5.85 Venous blood hemoglobin measurement (mass/volume) 13.2 g/dL 11.5-16.0 Blood hematocrit (volume fraction) 39 % 35-52 Automated erythrocyte mean corpuscular volume 84 [foz_us] 80-99 Automated erythrocyte mean corpuscular hemoglobin (mass per erythrocyte) 28 pg 25-34 Automated erythrocyte mean corpuscular hemoglobin concentration measurement (mass/volume) 34 g/dL 32-36 Automated erythrocyte distribution width ratio 12.2 % 10.0- 14.5 Automated blood platelet count (count/volume) 186 10*3/uL 130-400 Automated blood platelet mean volume measurement 9.4 [foz_us] 7.4-10.4 Automated blood neutrophils/100 leukocytes 45 % 42-75 Automated blood lymphocytes/100 leukocytes 43 % 12-44 Blood monocytes/100 leukocytes 10 % 0-12 Automated blood eosinophils/100 leukocytes 2 % 0-10 Automated blood basophils/100 leukocytes 0 % 0-10 Blood neutrophils automated count (number/volume) 3.4 10*3 1.8-7.8 Blood lymphocytes automated count (number/volume) 3.2 10*3 1.0-4.0 Blood monocytes automated count (number/volume) 0.8 10*3 0.0- 1.0 Automated eosinophil count 0.1 10*3/uL 0.0-0.3 Automated blood basophil count (count/volume) 0.0 10*3/uL 0.0-0.1 Comprehensive metabolic panel - 04/15/18 01:23 Serum or plasma sodium measurement (moles/volume) 140 mmol/L 135-145 Serum or plasma potassium measurement (moles/volume) 3.2 mmol/L 3.6-5.0 Serum or plasma chloride measurement (moles/volume) 106 mmol/L 98-107 Carbon dioxide 23 mmol/L 21-32 Serum or plasma anion gap determination (moles/volume) 11 mmol/L 5-14 Serum or plasma urea nitrogen measurement (mass/volume) 6 mg/dL 7-18 Serum or plasma creatinine measurement (mass/volume) 0.82 mg/dL 0.60-1.30 Serum or plasma urea nitrogen/creatinine mass ratio 7 NRG Serum or plasma creatinine measurement with calculation of estimated glomerular filtration rate > NRG Serum or plasma glucose measurement (mass/volume) 108 mg/dL 70-105 Serum or plasma calcium measurement (mass/volume) 9.8 mg/dL 8.5-10.1 Serum or plasma total bilirubin measurement (mass/volume) 0.4 mg/dL 0.1-1.0 Serum or plasma alkaline phosphatase measurement (enzymatic activity/volume) 109 U/L 40-136 Serum or plasma aspartate aminotransferase measurement (enzymatic activity/volume) 13 U/L 5-34 Serum or plasma alanine aminotransferase measurement (enzymatic activity/volume) 11 U/L 0-55 Serum or plasma protein measurement (mass/volume) 6.5 g/dL 6.4-8.2 Serum or plasma albumin measurement (mass/volume) 4.2 g/dL 3.2-4.5 CALCIUM CORRECTED 9.6 mg/dL 8.5-10.1 Serum or plasma ethanol measurement (mass/volume) - 04/15/18 01:23 Serum or plasma ethanol measurement (mass/volume) < mg/dL <10 Urine drug screening test - 04/15/18 01:49 Urine phencyclidine detection by screening method NEGATIVE NEGATIVE Urine benzodiazepines detection by screening method NEGATIVE NEGATIVE Urine cocaine detection NEGATIVE NEGATIVE Urine amphetamines detection by screening method NEGATIVE NEGATIVE Urine methamphetamine detection by screening method NEGATIVE NEGATIVE Urine cannabinoids detection by screening method NEGATIVE NEGATIVE Urine opiates detection by screening method NEGATIVE NEGATIVE Urine barbiturates detection NEGATIVE NEGATIVE Screening urine tricyclic antidepressants detection POSITIVE NEGATIVE Urine methadone detection by screening method NEGATIVE NEGATIVE Urine oxycodone detection NEGATIVE NEGATIVE Urine propoxyphene detection NEGATIVE NEGATIVE Encounters ACCT No. Visit Date/Time Discharge Status Pt. Type Provider Facility Loc./Unit Complaint [id number] 06/29/2014 14:51:00 06/29/2014 23:59:59 [facility] Outpatient SHIVANI DIGGS DO [id number] 04/02/2014 16:47:00 04/02/2014 23:59:59 [facility] Out[facility] DIGGS SHIVANI HARPER [id number] 03/19/2014 17:43:00 03/19/2014 23:59:59 [facility] Outpatient SHIVANI DIGGS DO [id number] 03/05/2014 11:27:00 03/05/2014 23:59:59 [facility] Outpatient DIGGS DO SHIVANI K [id number] 02/26/2014 10:49:00 02/26/2014 23:59:59 C[facility] Outpatient SHIVANI DIGGS DO [id number] 09/26/2013 14:14:00 09/26/2013 23:59:59 CLS Outpatient SHIVANI DIGGS DO [id number] 09/04/2013 15:19:00 09/04/2013 23:59:59 [facility] Outpatient KATERINA SMITH APRN [id number] 04/27/2013 16:20:00 04/27/2013 23:59:59 [facility] Outpatient KATERINA SMITH APRN [id number] 02/13/2013 16:38:00 02/13/2013 23:59:59 [facility] Outpatient KATERINA SMITH APRN [id number] 01/16/2013 16:32:00 01/16/2013 23:59:59 CLS Outpatient SHIVANI DIGGS DO [id number] 01/02/2013 10:59:00 01/02/2013 23:59:59 CLS Outpatient SHIVANI DIGGS DO [id number] 07/12/2012 10:20:00 07/12/2012 23:59:59 [facility] Outpatient [id number] 06/27/2012 16:36:00 06/27/2012 23:59:59 [facility] Outpatient KATERINA SMITH APRN [id number] 06/10/2012 13:34:00 06/10/2012 23:59:59 [facility] Outpatient KATERINA SMITH APRN [id number] 02/05/2012 15:48:00 02/05/2012 23:59:59 CLS Outpatient [id number] 10/25/2012 10:39:00 Document Registration [id number] 09/07/2012 16:28:00 Document Registration [id number] 08/09/2012 16:13:00 Document Registration [id number] 07/25/2012 15:59:00 Document Registration [id number] 10/05/2018 13:40:00 ACT Outpatient KATERINA SMITH APRN [facility] [id number] 02/11/2017 14:20:00 Document Registration [id number] 02/01/2017 11:00:00 Document Registration [id number] 04/15/2018 01:11:00 04/15/2018 04:18:00 DIS Emergency SHANIA CORDOVA DO [facility] ER CAN'T SWALLOW,ANXIETY [id number] 01/19/2018 11:06:00 01/19/2018 23:59:59 CLS Outpatient LINDA JARRELL MD [facility] RT DDU [id number] 02/17/2017 09:43:00 02/17/2017 23:59:59 CLS Outpatient PANDA CARTAGENA DO [facility] RAD R31.9 HEMATURIA [id number] 02/04/2017 12:47:00 02/04/2017 23:59:59 CLS Outpatient PANDA CARTAGENA DO [facility] RAD WELL WOMAN EXAM [id number] 01/22/2016 11:33:00 01/22/2016 23:59:59 CLS Outpatient KATERINA SMITH CFNP [facility] RAD LUNG NODULE [id number] 07/16/2015 11:59:00 07/16/2015 23:59:59 CLS Outpatient KATERINA SMITH [facility] RAD ENLARGING LUNG NODULES [id number] 07/01/2015 17:30:00 07/03/2015 12:23:00 DIS Inpatient RANEDLL COTTRELL, LAZARO Rich [facility] 4TH INTRACTABLE N/V ABD PAIN PULMONARY NODULE [id number] 01/04/2013 12:22:00 01/04/2013 23:59:59 CLS Outpatient WEN MASSEY MD [facility] RT PULMONARY NODULE [id number] 07/01/2015 12:01:00 Document Registration [id number] 06/28/2012 10:06:00 Document Registration [id number] 06/20/2012 23:10:00 Document Registration [id number] 06/16/2012 11:12:00 Document Registration [id number] 12/14/2010 18:14:00 Document Registration [id number] 05/26/2010 09:59:00 Document Registration [id number] 05/25/2010 10:57:00 Document Registration
[2018-10-08 13:50] LABS: ALANINE AMINOTRANSFERASE 9 U/L (0-55); ALKALINE PHOSPHATASE 99 U/L (40-136); BILIRUBIN,TOTAL 0.5 MG/DL (0.1-1.0); BUN/CREATININE RATIO 8; CALCIUM 9.2 MG/DL (8.5-10.1); CARBON DIOXIDE 23 MMOL/L (21-32); CHLORIDE 103 MMOL/L (98-107); CREATININE SERUM 0.71 MG/DL (0.60-1.30); GFR ESTIMATED > 60; GLUCOSE 120 MG/DL (70-105); MAGNESIUM 1.7 MG/DL (1.8-2.4); POTASSIUM 3.2 MMOL/L (3.6-5.0); SODIUM 139 MMOL/L (135-145)
[2018-10-08] MEDS ORDERED: KCL 10 MEQ TAB (MICRO K) PO ONE (14:00)
--- NOTE | 2018-10-08 14:02 | Diagnostic Imaging Report ---
INDICATION: Cough and fever with sepsis. COMPARISON: 04/15/2018. DISCUSSION: Single portable upright view of the chest was obtained. 2 cm nodule within the right lung base is stable. Stable normal heart size. Mild infiltrates within the right lung base are nonspecific and could be due to technique and patient body habitus though underlying interstitial pneumonia is not excluded. No pleural fluid or pneumothorax. No osseous abnormality. IMPRESSION: 1. Nonspecific interstitial infiltrates within the right lung base as described. Dictated by: Dictated on workstation # [id number]
[2018-10-08] MEDS ORDERED: PRD20T PO (14:08)
[2018-10-08] MEDS ORDERED: LORA0.5T PO (14:09)
[2018-10-08] MEDS ORDERED: CEFU250T80 PO (14:09)
[2018-10-08 14:28] VITALS: BP 118/82
[2018-10-08] MEDS ORDERED: APAP 300 MG/CODEINE 30 MG (TYLENOL #3) TAB PO ONE (14:30)
== END 2018-10-08 14:32 | disposition home or self-care (01) ==
LOC: EDUNIT# 13:14 → ER 13:15
DX: J43.9 Emphysema, unspecified (principal); F41.9 Anxiety disorder, unspecified; K21.9 Gastro-esophageal reflux disease without esophagitis; Z90.49 Acquired absence of other specified parts of digestive tract; Z99.81 Dependence on supplemental oxygen; Z88.6 Allergy status to analgesic agent; Z88.0 Allergy status to penicillin; Z77.22 Contact with and (suspected) exposure to environmental tobacco smoke (acute) (chronic)
CPT/HCPCS: 36415; 71045; 80053; 83735; 83874; 83880; 84484; 85025; 85379; 85610; 85730; 93005; 93041; 96361; 96374; 96375

== ENCOUNTER → 2018-12-20 | Outpatient (CLI) | payer MEDICARE, MEDICAID ==
[~2018-12-20] MED LIST changes: +CEFU250T80 PO; +HOLD METFORMIN - RECEIVED CONTRAST 20 ML VIAL IV SCH; +IOHEXOL 350 MG/ML 100 ML (OMNIPAQUE 350) VIAL IV ONE; +LORA0.5T PO; +NS 100 ML (IVPB) BAG IV ONE
[2018-12-20 11:23] LABS: ALANINE AMINOTRANSFERASE 9 U/L (0-55); ALBUMIN 4.1 GM/DL (3.2-4.5); ALKALINE PHOSPHATASE 119 U/L (40-136); BILIRUBIN,TOTAL 0.5 MG/DL (0.1-1.0); BUN/CREATININE RATIO 8; CALCIUM 9.8 MG/DL (8.5-10.1); CARBON DIOXIDE 26 MMOL/L (21-32); CHLORIDE 106 MMOL/L (98-107); CREATININE SERUM 0.73 MG/DL (0.60-1.30); GFR ESTIMATED > 60; GLUCOSE 102 MG/DL (70-105); POTASSIUM 3.2 MMOL/L (3.6-5.0); SODIUM 140 MMOL/L (135-145); TOTAL PROTEIN 6.2 GM/DL (6.4-8.2)
--- NOTE | 2018-12-20 13:12 | Diagnostic Imaging Report ---
PROCEDURE: CT chest and abdomen with contrast. TECHNIQUE: Multiple contiguous axial images were obtained through the chest and abdomen after the administration of intravenous contrast. Auto Exposure Controls were utilized during the CT exam to meet ALARA standards for radiation dose reduction. INDICATION: Shortness of air and cough. Correlation is made with prior CT chest from 04/15/[address] abdomen from 02/17/2017. CT chest: FINDINGS: Enlarged left lobe of the thyroid with low-density nodule appears similar to prior exam. No axillary lymphadenopathy is detected. No definite mediastinal or hilar lymphadenopathy is seen. No pericardial or pleural fluid is detected. Parenchymal evaluation does show centrilobular emphysematous changes throughout both lungs. Lobulated noncalcified nodule in the right lower lobe is stable in appearance when compared with prior exam. When measured by the same technique, this measures approximately 22 mm. No other pulmonary masses are seen. IMPRESSION: Stable CT chest since exam from 04/15/2018. Right lower lobe nodule is stable. No mediastinal or hilar lymphadenopathy is detected. CT abdomen: FINDINGS: The liver does demonstrate mild generalized low density consistent with hepatic steatosis. No discrete liver mass is detected. The gallbladder is surgically absent. No biliary ductal dilatation is seen. Pancreas and spleen are unremarkable. No adrenal mass is identified. The kidneys are unremarkable. Aorta is calcified but nonaneurysmal. No central retroperitoneal or mesenteric lymphadenopathy is seen. Appendix is visualized and unremarkable. Bowel loops are nonobstructed. There is no ascites. There is diverticulosis of the colon but no evidence of acute diverticulitis. Degenerative changes in the lumbar spine are noted. IMPRESSION: 1. Uncomplicated diverticulosis. 2. Hepatic steatosis. 3. No acute feature is detected. Dictated by: Dictated on workstation # [id number]
--- NOTE | 2018-12-20 16:41 | Diagnostic Imaging Report ---
INDICATION: Postmenopausal female. COMPARISON: None. FINDINGS: AP Spine L1-L4: [BMD (g/cm2): 1.154] [T-Score: -0.4] [Z-Score: -0.4] [BMD Previous: N/A] [BMD % Change: N/A] LT Hip Neck: [BMD (g/cm2): 0.837] [T-Score: -1.4] [Z-Score: -1.0] LT Hip Total: [BMD (g/cm2):0.978] [T-Score:-0.2] [Z-Score: -0.2] [BMD Previous: N/A] [BMD % Change: N/A] RT Hip Neck: [BMD (g/cm2):0.866] [T-Score:-1.2] [Z-Score:-0.8] RT Hip Total: [BMD (g/cm2):0.958] [T-score:-0.4] [Z-Score:-0.4] [BMD Previous:N/A] [BMD % Change:N/A] *Indicates significant change from prior examination based on 95% confidence level. World Health Organization criteria for BMD interpretation classify patients as Normal (T-score at or above -1.0), Osteopenic (T-score between -1.0 and -2.5) or Osteoporotic (T-score at or below -2.5). LIMITATIONS AND MODIFICATION: None. FRACTURE RISK (FRAX SCORE): Not calculated due to weight limit. IMPRESSION: 1. Osteopenia (Low bone mass). 2. Baseline examination. 3. See below National Osteoporosis Foundation guidelines on when to potentially initiate pharmacologic therapy. Based on the National Osteoporosis Foundation Guidelines, pharmacologic treatment should be initiated in any of the following, unless clinical conditions suggest otherwise: * Any patient with prior fragility fracture of the hip or vertebrae. A spine fracture indicates 5X risk for subsequent spine fracture and 2X risk for subsequent hip fracture. * Osteoporosis (T-score <-2.5). * Postmenopausal women and men age 50 and older with low bone mass/osteopenia (T-score between -1.0 and -2.5) by DXA and 10-year major osteoporotic fracture greater than 20% or a 10-year probability of hip fracture greater than 3%. These fracture risks are supplied above in the FRAX score, if applicable. * Clinician judgement and/or patient preferences may indicate treatment for people with 10-year fracture probabilities above or below these levels. Dictated by: Dictated on workstation # [id number]
== END ==
LOC: RAD 10:48
PROVIDERS: ATTEND Nurse Practitioner Family
DX: Z13.820 Encounter for screening for osteoporosis (principal); Z00.00 Encounter for general adult medical examination without abnormal findings; M85.89 Other specified disorders of bone density and structure, multiple sites; R91.1 Solitary pulmonary nodule; R06.02 Shortness of breath; Z78.0 Asymptomatic menopausal state
CPT/HCPCS: 36415; 71260; 74160; 77080; 80053

== ENCOUNTER 2019-06-07 05:37 | Outpatient (CLI) | payer MEDICARE, MEDICAID ==
[~2019-06-07] VITALS: Ht 170.2 cm; Wt 129.5 kg
[~2019-06-07 05:37] MED LIST changes: -HOLD METFORMIN - RECEIVED CONTRAST 20 ML VIAL IV SCH; -IOHEXOL 350 MG/ML 100 ML (OMNIPAQUE 350) VIAL IV ONE; -NS 100 ML (IVPB) BAG IV ONE
[2019-06-07] MEDS ORDERED: PSEU120T17 PO (15:13)
[2019-06-07] MEDS ORDERED: LURA60TA2 PO (15:13)
[2019-06-07] MEDS ORDERED: LISI10TA2 PO (15:13)
[2019-06-07] MEDS ORDERED: METH500T7 PO (15:13)
[2019-06-07] MEDS ORDERED: TRAZ-227 PO (15:13)
[2019-06-07] MEDS ORDERED: ATOR20TA66 PO (15:13)
[2019-06-07] MEDS ORDERED: CETI10TA17 PO (15:13)
== END 2019-06-07 15:22 | disposition home or self-care (01) ==
LOC: PREOP 05:37
PROVIDERS: ATTEND Specialist
DX: Z01.818 Encounter for other preprocedural examination (principal)

== ENCOUNTER 2019-06-09 09:58 | Day surgery (SDC) | payer MEDICARE, MEDICAID ==
[~2019-06-09] VITALS: Ht 170 cm; Wt 129.5 kg
[~2019-06-09 09:58] MED LIST changes: +ATOR20TA66 PO; +CETI10TA17 PO; +LISI10TA2 PO; +LURA60TA2 PO; +METH500T7 PO; +PSEU120T17 PO; +TRAZ-227 PO
[2019-06-09 10:05] VITALS: BP 119/77
[2019-06-09] MEDS: TETRACAINE 0.5% OPHTH SOLN 4 ML BTL (SINGLE DOSE ONLY) OU PRN ×4 (10:26→10:54)
[2019-06-09] MEDS ORDERED: LIDOCAINE PF 1% 2 ML VIAL IR PRN (10:30)
[2019-06-09] MEDS ORDERED: MOXIFLOXACIN OPHTH SOLN 5 MG/ML 0.3 ML SYRINGE OP ONE (10:30)
[2019-06-09] MEDS ORDERED: TIMOLOL MALEATE 0.5% 5 ML (TIMOPTIC) BTL OU PRN (10:30)
[2019-06-09] MEDS ORDERED: POVIDONE (BETADINE) OPHTH SOLN 5% 30 ML OP ONE (10:30)
[2019-06-09] MEDS: CYCLOPENTOLATE 1% (CYCLOGYL) 2 ML DROPS OP SCH ×3 (10:36→10:54)
[2019-06-09] MEDS: PHENYLEPHRINE 10% OPHTH (NEO-SYN) 5 ML BTL OU SCH ×3 (10:36→10:54)
[2019-06-09] MEDS ORDERED: MIDAZOLAM 2 MG/2 ML (VERSED) VIAL ONE (11:00)
--- NOTE | 2019-06-09 11:23 | Ophthalmologist Pre-Op Note ---
Pre-Operative Progress Note H&P Reviewed The H&P was reviewed, patient examined and no changes noted. Date H&P Reviewed: Jun 09, 2019 Time H&P Reviewed: 11:03 Pre-Op Dx Cataract, Right Eye ANTONIA SEWELL MD Jun 09, 2019 11:03
--- NOTE | 2019-06-09 11:26 | Ophthalmology Operative Report ---
Cataract removal/placement IOL PREOPERATIVE DIAGNOSIS: Cataract Right Eye POSTOPERATIVE DIAGNOSIS: Cataract Right Eye PROCEDURE: Cataract removal and placement of posterior chamber implant, right eye SURGEON: Tate Sewell ANESTHESIA: Topical with sedation COMPLICATIONS: None ESTIMATED BLOOD LOSS: Minimal DESCRIPTION OF PROCEDURE: After proper informed consent was obtained, the patient, a 58 female, was taken to the Operating Room and the right eye was anesthetized with tetracaine. The right eye was then prepped and draped in the usual manner. A wire lid speculum was placed. A paracentesis was made at the left hand position. Preservative free lidocaine was injected into the anterior chamber followed by viscoelastic. A clear corneal incision was made in the temporal position. A capsulorrhexis was preformed and the central nuclear and cortical material were removed. The posterior capsule was polished and Rishi 20.0 AU00T0 IOL was placed into the capsular bag. The residual viscoelastic was aspirated and balanced saline solution was injected into the anterior chamber. Moxifloxacin was injected into the anterior chamber. The wound was checked and found to be water tight. The patient tolerated the procedure well without complications. TATE SEWELL MD Jun 09, 2019 11:26
[2019-06-09] MEDS ORDERED: acetaZOLAMIDE ER 500 MG CAP (DIAMOX SEQUELS) PO ONE (11:30)
[2019-06-09 11:34] VITALS: BP 112/68
== END 2019-06-09 11:34 | disposition home or self-care (01) ==
LOC: SDC 09:58
PROVIDERS: ATTEND Specialist
DX: H25.11 Age-related nuclear cataract, right eye (principal); F17.290 Nicotine dependence, other tobacco product, uncomplicated; E78.00 Pure hypercholesterolemia, unspecified; F41.9 Anxiety disorder, unspecified; F32.9 Major depressive disorder, single episode, unspecified; G47.00 Insomnia, unspecified; J44.9 Chronic obstructive pulmonary disease, unspecified; I10 Essential (primary) hypertension; E78.5 Hyperlipidemia, unspecified; E66.01 Morbid (severe) obesity due to excess calories; Z68.41 Body mass index [BMI] 40.0-44.9, adult; Z79.899 Other long term (current) drug therapy; Z88.0 Allergy status to penicillin

== ENCOUNTER 2019-08-21 09:43 | Outpatient (RCR) | payer MEDICAID, MEDICARE ==
[~2019-08-21] VITALS: Ht 170 cm; Wt 129.5 kg
== END 2019-08-21 15:09 | disposition home or self-care (01) ==
LOC: PREOP 09:43
PROVIDERS: ATTEND Specialist
DX: Z01.818 Encounter for other preprocedural examination (principal); Z01.812 Encounter for preprocedural laboratory examination; Z98.42 Cataract extraction status, left eye; Z96.1 Presence of intraocular lens
CPT/HCPCS: 87635

== ENCOUNTER 2019-08-25 07:58 | Day surgery (SDC) | payer MEDICARE, MEDICAID ==
[~2019-08-25] VITALS: Ht 170.2 cm; Wt 129.5 kg
[2019-08-25] MEDS ORDERED: TIMOLOL MALEATE 0.5% 5 ML (TIMOPTIC) BTL OU PRN (08:30)
[2019-08-25] MEDS ORDERED: MOXIFLOXACIN OPHTH SOLN 5 MG/ML 0.3 ML SYRINGE OP ONE (08:30)
[2019-08-25] MEDS ORDERED: POVIDONE (BETADINE) OPHTH SOLN 5% 30 ML OP ONE (08:30)
[2019-08-25] MEDS ORDERED: LIDOCAINE PF 1% 2 ML VIAL IR PRN (08:30)
[2019-08-25] MEDS: TETRACAINE 0.5% OPHTH SOLN 4 ML BTL (SINGLE DOSE ONLY) OU PRN ×4 (08:41→08:57)
[2019-08-25] MEDS: PHENYLEPHRINE 10% OPHTH (NEO-SYN) 5 ML BTL OU SCH ×3 (08:47→08:57)
[2019-08-25] MEDS: CYCLOPENTOLATE 1% (CYCLOGYL) 2 ML DROPS OP SCH ×3 (08:47→08:57)
[2019-08-25 08:49] VITALS: BP 100/75
--- NOTE | 2019-08-25 09:39 | Ophthalmologist Pre-Op Note ---
Pre-Operative Progress Note H&P Reviewed The H&P was reviewed, patient examined and no changes noted. Date H&P Reviewed: August 25, 2019 Time H&P Reviewed: 09:39 Pre-Op Dx Cataract, Left Eye ANTONIA SEWELL MD August 25, 2019 09:39
[2019-08-25] MEDS ORDERED: MIDAZOLAM 2 MG/2 ML (VERSED) VIAL ONE (09:46)
--- NOTE | 2019-08-25 10:14 | Ophthalmology Operative Report ---
Cataract removal/placement IOL PREOPERATIVE DIAGNOSIS: Cataract Left Eye POSTOPERATIVE DIAGNOSIS: Cataract Left Eye PROCEDURE: Cataract removal and placement of posterior chamber implant, left eye SURGEON: Tate Sewell ANESTHESIA: Topical with sedation COMPLICATIONS: None ESTIMATED BLOOD LOSS: Minimal DESCRIPTION OF PROCEDURE: After proper informed consent was obtained, the patient, a 58 female, was taken to the Operating Room and the left eye was anesthetized with tetracaine. The left eye was then prepped and draped in the usual manner. A wire lid speculum was placed. A paracentesis was made at the left hand position. Preservative free lidocaine was injected into the anterior chamber followed by viscoelastic. A clear corneal incision was made in the temporal position. A capsulorrhexis was preformed and the central nuclear and cortical material were removed. The posterior capsule was polished and an Rishi 20.0 AU00T0 was placed into the capsular bag. The residual viscoelastic was aspirated and balanced saline solution was injected into the anterior chamber. Moxifloxacin was injected into the anterior chamber. The wound was checked and found to be water tight. The patient tolerated the procedure well without complications. TATE SEWELL MD August 25, 2019 10:14
[2019-08-25 10:22] VITALS: BP 118/91
[2019-08-25] MEDS ORDERED: acetaZOLAMIDE ER 500 MG CAP (DIAMOX SEQUELS) PO ONE (10:30)
--- NOTE | 2019-08-25 11:23 | Anesthesia-General Post-Op ---
MAC Patient Condition Mental Status/LOC: Same as Preop Cardiovascular: Satisfactory Nausea/Vomiting: Absent Respiratory: Satisfactory Pain: Controlled Complications: Absent Post Op Complications Complications None Follow Up Care/Instructions Patient Instructions None needed. Anesthesiology Discharge Order Discharge Order Patient is doing well, no complaints, stable vital signs, no apparent adverse anesthesia problems. No complications reported per nursing. FRANSICO BARILLAS CRNA August 25, 2019 11:23
== END 2019-08-25 10:22 | disposition home or self-care (01) ==
LOC: SDC 07:58
PROVIDERS: ATTEND Specialist
DX: H25.12 Age-related nuclear cataract, left eye (principal); I10 Essential (primary) hypertension; J44.9 Chronic obstructive pulmonary disease, unspecified; E66.01 Morbid (severe) obesity due to excess calories; E78.5 Hyperlipidemia, unspecified; E78.00 Pure hypercholesterolemia, unspecified; G47.00 Insomnia, unspecified; F32.9 Major depressive disorder, single episode, unspecified; F17.210 Nicotine dependence, cigarettes, uncomplicated; F41.9 Anxiety disorder, unspecified; Z88.6 Allergy status to analgesic agent; Z88.0 Allergy status to penicillin; Z68.42 Body mass index [BMI] 45.0-49.9, adult; Z79.899 Other long term (current) drug therapy; Z83.3 Family history of diabetes mellitus; Z80.3 Family history of malignant neoplasm of breast

== ENCOUNTER 2020-02-25 08:46 | Emergency (ER) | payer MEDICARE, MEDICAID ==
[~2020-02-25] VITALS: Ht 170.1 cm; Wt 120.2 kg
[2020-02-25 09:08] LABS: BILIRUBIN,URINE NEGATIVE (NEGATIVE); CLARITY,URINE SL CLOUDY; COLOR,URINE YELLOW; GLUCOSE, URINE (UA) NEGATIVE (NEGATIVE); KETONES,URINE NEGATIVE (NEGATIVE); LEUKOCYTE ESTERASE ,URINE 3+ (NEGATIVE); NITRITE,URINE POSITIVE (NEGATIVE); PROTEIN,URINE TRACE (NEGATIVE)
[2020-02-25 09:17] LABS: BACTERIA,URINE LARGE /HPF; RBC,URINE RARE /HPF; WBC,URINE 25-50 /HPF
[2020-02-25] MEDS ORDERED: cefTRIAXone 1,000 MG/2.86 ml vial (IM ONLY) IM STA (09:55)
--- NOTE | 2020-02-25 09:56 | ED GU-Female ---
General Chief Complaint: - Urinary Stated Complaint: HEADACHE,BODYACHE, CHILLS, BURNING WHEN URINATION Nursing Triage Note: Pt reports chills, headache, and painful urination that began yesterday. Pt reports vomiting one time last night. Pt reports taking Ibuprophen last night but nothing today. Nursing Sepsis Screen: No Definite Risk Source: patient Exam Limitations: no limitations History of Present Illness Date Seen by Provider: Feb 25, 2020 Time Seen by Provider: 09:33 Initial Comments Patient presents to the ER by private conveyance with chief complaint of malaise and right flank pain and dysuria times one day. She's had a UTI once in the past but has never been hospitalized for. She does not have diabetes. She does not have Lopez UTIs. She's not having cough shortness of air or sick contacts. No fevers. No history of kidney stones. Allergies and Home Medications Allergies Coded Allergies: aspirin (Unverified Allergy, Unknown, 07/01/15) Penicillins (Unverified Adverse Reaction, Mild, N/V, 07/02/15) Home Medications Atorvastatin Calcium 20 Mg Tablet, 20 MG PO HS, (Reported) Cetirizine HCl 10 Mg Tablet, 10 MG PO DAILY, (Reported) Hydroxyzine HCl 25 Mg Tablet, 25 MG PO BID, (Reported) Lisinopril 10 Mg Tablet, 10 MG PO DAILY, (Reported) Lurasidone HCl 60 Mg Tablet, 60 MG PO DAILY, (Reported) Methocarbamol 500 Mg Tablet, 500 MG PO TID, (Reported) Pseudoephedrine HCl 120 Mg Tablet.er, 120 MG PO BID PRN for allergies, (Reported) Trazodone HCl 100 Mg Tablet, 100 MG PO HS, (Reported) Patient Home Medication List Home Medication List Reviewed: Yes Review of Systems Review of Systems Constitutional: No chills, No diaphoresis; malaise EENTM: No hearing loss, No blurred vision Respiratory: No cough, No short of breath Cardiovascular: No chest pain, No palpitations Gastrointestinal: No abdominal pain, No nausea, No vomiting Genitourinary: burning, dysuria Musculoskeletal: see HPI, back pain; No joint pain All Other Systemes Reviewed Negative Unless Noted: Yes Past Vrdkeiy-Falxzh-Ynmryg Hx Patient Social History Alcohol Use: Denies Use Recreational Drug Use: No Smoking Status: Current Everyday Smoker Type Used: Cigarettes Former Smoker, Quit: Jan 03, 2018 2nd Hand Smoke Exposure: Yes Recent Foreign Travel: No Contact w/Someone Who Travel: No Recent Infectious Disease Expo: No Recent Hopitalizations: No Immunizations Up To Date Date of Pneumonia Vaccine: Jun 21, 2012 Seasonal Allergies Seasonal Allergies: No Past Medical History Surgeries: Yes (REFUGIO 1979) Gallbladder Respiratory: Yes (O2 AT HS AND PRN) COPD, Emphysema Currently Using CPAP: No Cardiac: No Neurological: No Reproductive Disorders: No Sexually Transmitted Disease: No HIV/AIDS: No Gastrointestinal: Yes (S/P JESENIA) Gastroesophageal Reflux, Gall Bladder Disease Musculoskeletal: No Endocrine: No Cancer: No Psychosocial: Yes Anxiety Integumentary: No Blood Disorders: No Family Medical History No Pertinent Family Hx Physical Exam Vital Signs Vital Signs - First Documented 02/25/20 08:55 Temp 37.7 Pulse 113 Resp 20 B/P (MAP) 130/73 (92) Pulse Ox 94 O2 Delivery Room Air Capillary Refill : Less Than 3 Seconds Height, Weight, BMI Height: 5'7.00" Weight: 291lbs. 0.0oz. 131.768400by; 41.00 BMI Method:Stated General Appearance: WD/WN, mild distress HEENT: PERRL/EOMI, pharynx normal Neck: full range of motion, normal inspection Cardiovascular: normal peripheral pulses, regular rate, rhythm Respiratory: lungs clear, normal breath sounds, no respiratory distress, no accessory muscle use Gastrointestinal: normal bowel sounds, non tender Back: normal inspection, no CVA tenderness Neurologic/Psychiatric: alert, normal mood/affect, oriented x 3 Skin: normal color, warm/dry Progress/Results/Core Measures Suspected Sepsis Recent Fever Within 48 Hours: No Infection Criteria Present: None New/Unexplained Altered Menta: No Sepsis Screen: No Definite Risk SIRS Temperature: Pulse: 113 Respiratory Rate: 20 Blood Pressure 130 /73 Mean: 92 Results/Orders Lab Results Laboratory Tests Test 02/25/20 08:52 Range/Units Urine Color YELLOW Urine Clarity SL CLOUDY Urine pH 6.0 5-9 Urine Specific [place] 1.010 L 1.016-1.022 Urine Protein TRACE H NEGATIVE Urine Glucose (UA) NEGATIVE NEGATIVE Urine Ketones NEGATIVE NEGATIVE Urine Nitrite POSITIVE H NEGATIVE Urine Bilirubin NEGATIVE NEGATIVE Urine Urobilinogen 1.0 < = 1.0 MG/DL Urine Leukocyte Esterase 3+ H NEGATIVE Urine RBC (Auto) 1+ H NEGATIVE Urine RBC RARE /HPF Urine WBC 25-50 H /HPF Urine Squamous Epithelial Cells 5-10 /HPF Urine Crystals NONE /LPF Urine Bacteria LARGE H /HPF Urine Casts NONE /LPF Urine Mucus NEGATIVE /LPF Urine Culture Indicated YES My Orders Orders - YANIRA HUFF Ua Culture If Indicated (02/25/20 08:52) Urine Culture (02/25/20 08:52) Ceftriaxone For Im Use (Rocephin For Im (02/25/20 09:55) Lidocaine 1% Inj 20 Ml (Xylocaine 1% Inj (02/25/20 10:00) Vital Signs/I&O 02/25/20 08:55 Temp 37.7 Pulse 113 Resp 20 B/P (MAP) 130/73 (92) Pulse Ox 94 O2 Delivery Room Air Capillary Refill : Less Than 3 Seconds Blood Pressure Mean: 92 Progress Note : Time: 09:59 Progress Note We did discuss doing a workup with labs however the patient feels his UTI and does not want any further workup. She can drink and has not have any nausea so IV fluids are not really indicated. We've encouraged to drink a lot of any give her a gram of Rocephin IM and have her out on a third generation oral cephalosporin. Her allergy to amoxicillin is rash. She says she has tolerated Rocephin in the past. Departure Impression Primary Impression: Urinary tract infection Qualified Codes: N30.00 - Acute cystitis without hematuria Disposition: HOME, SELF-CARE Condition: Stable Departure-Patient Inst. Decision time for Depature: 10:01 Referrals: [facility]/ (PCP) Primary Care Physician KATERINA SMITH (Family) Primary Care Physician Patient Instructions: Urinary Tract Infection, Adult (DC) Add. 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 Drink lots of fluids especially water. Return to the hospital if your symptoms are worsening or you cannot keep fluids down. Expect to see improvement in your symptoms over the next 3-4 days. Tylenol 1000 g every 8 hours as necessary for body aches. All discharge instructions reviewed with patient and/or family. Voiced understanding. Scripts Cefdinir (Cefdinir) 300 Mg Capsule 300 MG PO BID, #14 CAP 0 Refills Prov: YANIRA HUFF 02/25/20 YANIRA HUFF Feb 25, 2020 09:56
[2020-02-25] MEDS ORDERED: LIDOCAINE 1% INJ 20 ML 20 ML VIAL INJ ONE (10:00)
[2020-02-25] MEDS ORDERED: CEFD300C3 PO (10:02)
[2020-02-25 10:28] VITALS: BP 113/68
== END 2020-02-25 10:29 | disposition home or self-care (01) ==
LOC: EDUNIT# 08:46 → ER 08:48
DX: N39.0 Urinary tract infection, site not specified (principal); F41.9 Anxiety disorder, unspecified; F17.210 Nicotine dependence, cigarettes, uncomplicated; Z88.0 Allergy status to penicillin; Z88.8 Allergy status to other drugs, medicaments and biological substances
CPT/HCPCS: 81000; 87077; 87088; 99284

== ENCOUNTER 2020-08-31 02:21 | Inpatient (IN) | payer MEDICARE, MEDICAID ==
[~2020-08-31] VITALS: Ht 170 cm; Wt 122.3 kg
[2020-08-31] VITALS (7 sets, daily range): BP systolic 104–133; BP diastolic 58–71
[~2020-08-31 02:21] MED LIST changes: -LISI10TA2 PO; +LISI10TA25 PO; +METH-731 PO; -METH500T7 PO; +PRD10T
[2020-08-31] MEDS ORDERED: IBUPROFEN 800 MG (MOTRIN) TAB PO ONE (02:30)
[2020-08-31] MEDS ORDERED: ACETAMINOPHEN 500 MG TAB (TYLENOL) PO ONE (02:30)
[2020-08-31] MEDS ORDERED: PROMETHAZINE/ CODEINE SYRUP 5 ML UDC PO ONE (02:45)
--- NOTE | 2020-08-31 03:05 | ED Respiratory ---
General Chief Complaint: Respiratory Problems Stated Complaint: SOB Source: patient History of Present Illness Date Seen by Provider: August 31, 2020 Time Seen by Provider: 02:24 Initial Comments PT ARRIVES VIA [facility] FROM HOME PT STATES SHE HAS BEEN SICK X 1 WEEK WITH PRODUCTIVE COUGH AND CONGESTION SPUTUM IS CLEAR TO YELLOW IN COLOR C/O SHORTNESS OF BREATH BEGAN RUNNING FEVER TODAY, WAS 102 BEFORE SHE CALLED EMS NO CHEST PAIN NO CHANGE IN CHRONIC LEG SWELLING NO HEADACHE NO BODY ACHES NO SORE THROAT NO LOSS OF TASTE OR SMELL NO GI SYMPTOMS PT HAS COPD AND CONTINUES TO SMOKE PT WEARS O2 AT HS AT 3L/NC HAS ALBUTEROL INHALER AND NEBULIZER, AND EMS GAVE DUO NEB TREATMENT ENROUTE. ALSO HAS SEVERAL MEDICATIONS FOR ALLERGIES WAS SEEN BY JIMENEZ SMITH LAST WEEK FOR THIS PROBLEM AND WAS TOLD IT WAS ALLERGIES, AND PRESCRIBED A STEROID AND COUGH MEDICATION NO TESTS WERE DONE AT THAT TIME PT STATES SHE HAS CONTINUED TO GET WORSE, ESPECIALLY SINCE THIS MORNING PT HAS RECEIVED BOTH MODERNA COVID-19 VACCINES, WITH LAST ONE BEING 07/04/20 PT HAS RECEIVED HER FLU VACCINE THIS SEASON WELL. PCP: JIMENEZ SMITH, [facility] Allergies and Home Medications Allergies Coded Allergies: aspirin (Unverified Allergy, Unknown, 07/01/15) Penicillins (Unverified Adverse Reaction, Mild, N/V, 07/02/15) Home Medications Albuterol Sulfate 1 Puff Puff, 2 PUFF IH Q4H PRN for SHORTNESS OF BREATH, ( Reported) 1 PUFF = 90 MCG Last Action: Reviewed Atorvastatin Calcium 20 Mg Tablet, 20 MG PO HS, (Reported) Last Action: Reviewed Benzonatate 100 Mg Capsule, 100 MG PO TID PRN for COUGH, (Reported) Last Action: Reviewed Diphenhydramine HCl 25 Mg Tablet, 25 MG PO HS, (Reported) Last Action: Reviewed Fluticasone Propionate 9.9 Ml [place].susp, 2 SPRAY NS BID, (Reported) 2 SPRAYS PER NOSTRIL DAILY X 2 DAYS THEN 1 SPRAY DAILY Last Action: Reviewed Lamotrigine 200 Mg Tablet, 200 MG PO HS, (Reported) Last Action: Reviewed Lisinopril 10 Mg Tablet, 10 MG PO DAILY, (Reported) Last Action: Reviewed Lurasidone HCl 80 Mg Tablet, 80 MG PO DAILY, (Reported) Last Action: Reviewed Montelukast Sodium 10 Mg Tablet, 10 MG PO DAILY, (Reported) Last Action: Reviewed Oxybutynin Chloride 5 Mg Tablet, 5 MG PO BID, (Reported) Last Action: Reviewed Pantoprazole Sodium 40 Mg Tablet.dr, 40 MG PO DAILY, (Reported) Last Action: Reviewed Trazodone HCl 150 Mg Tablet, 150 MG PO HS, (Reported) Last Action: Reviewed Patient Home Medication List Home Medication List Reviewed: Yes Review of Systems Review of Systems Constitutional: see HPI, fever EENTM: see HPI, nose congestion; No throat pain Respiratory: see HPI, cough, short of breath, wheezing Cardiovascular: No chest pain; edema; No palpitations, No syncope Gastrointestinal: no symptoms reported Genitourinary: no symptoms reported Musculoskeletal: no symptoms reported Skin: no symptoms reported Psychiatric/Neurological: No Symptoms Reported Hematologic/Lymphatic: No Symptoms Reported Immunological/Allergic: no symptoms reported Past Patzhwm-Zaghac-Cqurbg Hx Past Med/Social Hx: Reviewed and Corrections made Patient Social History Alcohol Use: Denies Use Drug of Choice: DENIES Smoking Status: Current Everyday Smoker (> 2 PPD) Type Used: Cigarettes 2nd Hand Smoke Exposure: Yes Recent Hopitalizations: No Immunizations Up To Date Date of Pneumonia Vaccine: Jun 21, 2012 Seasonal Allergies Seasonal Allergies: No Past Medical History Surgeries: Yes (JESENIA 1979; BILATERAL CATARACT SURGERY) Eye Surgery, Gallbladder, Tonsillectomy Respiratory: Yes (O2 AT HS 3L/NC AND PRN) COPD, Emphysema Currently Using CPAP: No Cardiac: Yes High Cholesterol, Hypertension Neurological: No Reproductive Disorders: No Sexually Transmitted Disease: No HIV/AIDS: No Genitourinary: No Gastrointestinal: Yes (S/P JESENIA) Gastroesophageal Reflux, Gall Bladder Disease Musculoskeletal: No Endocrine: No HEENT: No Cancer: No Psychosocial: Yes Anxiety Integumentary: No Blood Disorders: No Family Medical History No Pertinent Family Hx Physical Exam Vital Signs - First Documented 08/31/20 02:21 Temp 37.3 Pulse 120 Resp 24 B/P (MAP) 139/56 (83) Pulse Ox 97 O2 Delivery Nasal Cannula O2 Flow Rate 2.00 Capillary Refill : Height: 5'7.00" Weight: 291lbs. 0.0oz. 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, no motor/sensory deficits, alert, normal mood/affect, oriented x 3 Skin: normal color, warm/dry Focused Exam Lactate Level 08/31/20 02:50: Lactic Acid Level 2.00 Lactic Acid Level Laboratory Tests Test 08/31/20 02:50 Lactic Acid Level 2.00 MMOL/L (0.50-2.00) Progress/Results/Core Measures Suspected Sepsis SIRS Temperature: Pulse: Respiratory Rate: Laboratory Tests 08/31/20 02:50: White Blood Count 21.7H Blood Pressure / Mean: 08/31/20 02:50: Lactic Acid Level 2.00 Laboratory Tests 08/31/20 02:50: Creatinine 0.79, Platelet Count 191, Total Bilirubin 0.8 Results/Orders Lab Results Laboratory Tests Test 08/31/20 02:50 Range/Units White Blood Count 21.7 H 4.3-11.0 10^3/uL Red Blood Count 4.60 3.80-5.11 10^6/uL Hemoglobin 13.8 11.5-16.0 g/dL Hematocrit 40 35-52 % Mean Corpuscular Volume 87 80-99 fL Mean Corpuscular Hemoglobin 30 25-34 pg Mean Corpuscular Hemoglobin Concent 34 32-36 g/dL Red Cell Distribution Width 12.2 10.0-14.5 % Platelet Count 191 130-400 10^3/uL Mean Platelet Volume 10.6 9.0-12.2 fL Immature Granulocyte % (Auto) 1 % Neutrophils (%) (Auto) 63 42-75 % Lymphocytes (%) (Auto) 27 12-44 % Monocytes (%) (Auto) 10 0-12 % Eosinophils (%) (Auto) 0 0-10 % Basophils (%) (Auto) 0 0-10 % Neutrophils # (Auto) 13.5 H 1.8-7.8 10^3/uL Lymphocytes # (Auto) 5.8 H 1.0-4.0 10^3/uL Monocytes # (Auto) 2.1 H 0.0-1.0 10^3/uL Eosinophils # (Auto) 0.0 0.0-0.3 10^3/uL Basophils # (Auto) 0.1 0.0-0.1 10^3/uL Immature Granulocyte # (Auto) 0.2 H 0.0-0.1 10^3/uL Neutrophils % (Manual) 63 % Lymphocytes % (Manual) 30 % Monocytes % (Manual) 7 % Blood Morphology Comment NORMAL Erythrocyte Sedimentation Rate 47 H 0-30 MM/HR D-Dimer < 0.27 0.00-0.49 UG/ML Sodium Level 135 135-145 MMOL/L Potassium Level 3.3 L 3.6-5.0 MMOL/L Chloride Level 97 L 98-107 MMOL/L Carbon Dioxide Level 24 21-32 MMOL/L Anion Gap 14 5-14 MMOL/L Blood Urea Nitrogen 8 7-18 MG/DL Creatinine 0.79 0.60-1.30 MG/DL Estimat Glomerular Filtration Rate > 60 BUN/Creatinine Ratio 10 Glucose Level 116 H 70-105 MG/DL Lactic Acid Level 2.00 0.50-2.00 MMOL/L Calcium Level 10.2 H 8.5-10.1 MG/DL Corrected Calcium 10.1 8.5-10.1 MG/DL Magnesium Level 1.8 1.6-2.4 MG/DL Total Bilirubin 0.8 0.1-1.0 MG/DL Aspartate Amino Transf (AST/SGOT) 9 5-34 U/L Alanine Aminotransferase (ALT/SGPT) 8 0-55 U/L Alkaline Phosphatase 109 40-136 U/L Lactate Dehydrogenase 151 125-220 U/L Total Creatine Kinase 38 29-168 U/L Creatine Kinase MB 0.7 <6.6 NG/ML Troponin I < 0.028 <0.028 NG/ML C-Reactive Protein High Sensitivity 15.00 H 0.00-0.50 MG/DL B-Type Natriuretic Peptide 17.3 <100.0 PG/ML Total Protein 6.6 6.4-8.2 GM/DL Albumin 4.1 3.2-4.5 GM/DL Procalcitonin 0.03 <0.10 NG/ML Influenza Type A (RT-PCR) Not Detected Not Detecte Influenza Type B (RT-PCR) Not Detected Not Detecte SARS-CoV-2 RNA (RT-PCR) Not Detected Not Detecte My Orders Orders - SHANIA CORDOVA DO Ed Iv/Invasive Line Start (08/31/20 02:25) Ekg Tracing (08/31/20 02:25) O2 (08/31/20 02:25) Monitor-Rhythm Ecg Trace Only (08/31/20 02:25) Chest 1 View, Ap/Pa Only (08/31/20 02:25) BNP (08/31/20 02:25) Cbc With Automated Diff (08/31/20 02:25) Comprehensive Metabolic Panel (08/31/20 02:25) Creatine Kinase (08/31/20 02:25) Creatine Kinase Mb (08/31/20 02:25) Hs C Reactive Protein (08/31/20 02:25) Fibrin Degradation Products (08/31/20 02:25) Lactic Acid Analyzer (08/31/20 02:25) Magnesium (08/31/20 02:25) Blood Culture (08/31/20 02:25) Influenza A And B By Pcr (08/31/20 02:25) Erythrocyte Sedimentation Rate (08/31/20 02:25) Troponin I (08/31/20 02:25) Procalcitonin (Pct) (08/31/20 02:25) LDH (08/31/20 02:25) Covid 19 Inhouse Test (08/31/20 02:25) Dexamethasone Injection (Decadron Inje (08/31/20 02:30) Acetaminophen Tablet (Tylenol Tablet) (08/31/20 02:30) Ibuprofen Tablet (Motrin Tablet) (08/31/20 02:30) Promethazine/ Codeine Syrup (Phenergan W (08/31/20 02:45) Ceftriaxone For Iv Use (Rocephin For I (08/31/20 03:15) Azithromycin Injection (Zithromax Inject (08/31/20 03:15) Manual Differential (08/31/20 02:50) Sputum Culture (08/31/20 03:37) Medications Given in ED Current Medications Medications Dose Ordered Sig/Brian Route Start Time Stop Time Status Last Admin Dose Admin Acetaminophen 1,000 mg ONCE ONCE PO 08/31/20 02:30 08/31/20 02:31 DC 08/31/20 02:40 1,000 MG Azithromycin 500 mg/Sodium Chloride 255 ml @ 250 mls/hr ONCE ONCE IV 08/31/20 03:15 08/31/20 04:16 DC 08/31/20 04:09 250 MLS/HR Ceftriaxone Sodium 1000 mg/ Sterile Water 10 ml @ 200 mls/hr ONCE ONCE IV 08/31/20 03:15 08/31/20 03:17 DC 08/31/20 04:09 200 MLS/HR Dexamethasone Sodium Phosphate 10 mg ONCE ONCE IV 08/31/20 02:30 08/31/20 02:31 DC 08/31/20 02:51 10 MG Ibuprofen 800 mg ONCE ONCE PO 08/31/20 02:30 08/31/20 02:31 DC 08/31/20 02:40 800 MG Promethazine HCl/ Codeine 5 ml ONCE ONCE PO 08/31/20 02:45 08/31/20 02:46 DC 08/31/20 02:40 5 ML Vital Signs/I&O 08/31/20 08/31/20 02:21 02:21 Temp 37.3 Pulse 120 Resp 24 B/P (MAP) 139/56 (83) Pulse Ox 97 O2 Delivery Nasal Cannula Nasal Cannula O2 Flow Rate 2.00 2.00 Capillary Refill : Progress Note : Progress Note PLACED IN ISOLATION ROOM PPE WORN COVID-19 TESTING PERFORMED GIVEN DECADRON IV FOR DYSPNEA WITH IMPROVEMENT GAVE PHENERGAN WITH CODEINE FOR COUGH WITH IMPROVEMENT GAVE TYLENOL AND MOTRIN FOR FEVER WITH IMPROVEMENT NO DETERIORATION IN PT'S CONDITION DURING ER STAY O2 SATS REMAIN IN MID TO UPPER 90'S ON O2 AT 2L/NC BP AND HEART RATE STABLE ECG Initial ECG Impression Date: August 31, 2020 Initial ECG Impression Time: 03:01 Initial ECG Rate: 107 Initial ECG Rhythm: Normal Sinus Diagnostic Imaging Comments CXR--BIBASILAR INFILTRATES--PENDING RADIOLOGIST REVIEW Reviewed: Reviewed by Me Departure Communication (Admissions) [id number]--SPOKE WITH DR. IBARRA, HOSPITALIST FOR [facility] [place], ACCEPTS PT FOR ADMIT Impression Primary Impression: Sepsis Additional Impressions: Pneumonia COPD (chronic obstructive pulmonary disease) Hypokalemia Disposition: ADMITTED INPATIENT Condition: Improved Admissions Decision to Admit Reason: Admit from ER (General) Decision to Admit/Date: August 31, 2020 Time/Decision to Admit Time: 04:00 Departure-Patient Inst. Referrals: [facility] (PCP) Primary Care Physician KATERINA SMITH (Family) Primary Care Physician SHANIA CORDOVA DO August 31, 2020 03:05
[2020-08-31] MEDS ORDERED: cefTRIAXone FOR IV USE 1,000 MG in WATER (STERILE) FOR INJECTION 10 ML IV ONE (03:15)
[2020-08-31] MEDS ORDERED: AZITHROMYCIN INJECTION 500 MG in NS (IVPB) 250 ML IV ONE (03:15)
[2020-08-31 03:23] LABS: BASOPHILS # (AUTO) 0.1 10^3/uL (0.0-0.1); BASOPHILS % (AUTO) 0 % (0-10); EOSINOPHILS % (AUTO) 0 % (0-10); HEMATOCRIT 40 % (35-52); HEMOGLOBIN 13.8 g/dL (11.5-16.0); LYMPHOCYTES # (AUTO) 5.8 10^3/uL (1.0-4.0); LYMPHOCYTES % (AUTO) 27 % (12-44); MEAN CORPUSCULAR HEMOGLOBIN 30 pg (25-34); MEAN CORPUSCULAR HGB CONC 34 g/dL (32-36); MEAN CORPUSCULAR VOLUME 87 fL (80-99); MEAN PLATELET VOLUME 10.6 fL (9.0-12.2); MONOCYTES # (AUTO) 2.1 10^3/uL (0.0-1.0); MONOCYTES % (AUTO) 10 % (0-12); NEUTROPHILS # (AUTO) 13.5 10^3/uL (1.8-7.8); NEUTROPHILS % (AUTO) 63 % (42-75); PLATELET COUNT 191 10^3/uL (130-400); WHITE BLOOD COUNT 21.7 10^3/uL (4.3-11.0)
[2020-08-31 03:34] LABS: ALBUMIN 4.1 GM/DL (3.2-4.5); CHLORIDE 97 MMOL/L (98-107); POTASSIUM 3.3 MMOL/L (3.6-5.0); SODIUM 135 MMOL/L (135-145)
[2020-08-31 03:35] LABS: CALCIUM 10.2 MG/DL (8.5-10.1)
[2020-08-31 03:36] LABS: GLUCOSE 116 MG/DL (70-105); TOTAL PROTEIN 6.6 GM/DL (6.4-8.2)
[2020-08-31 03:37] LABS: CARBON DIOXIDE 24 MMOL/L (21-32)
[2020-08-31 03:38] LABS: BILIRUBIN,TOTAL 0.8 MG/DL (0.1-1.0)
[2020-08-31 03:40] LABS: ALKALINE PHOSPHATASE 109 U/L (40-136); CREATININE SERUM 0.79 MG/DL (0.60-1.30); GFR ESTIMATED > 60
[2020-08-31 03:41] LABS: BUN/CREATININE RATIO 10
[2020-08-31 03:42] LABS: MAGNESIUM 1.8 MG/DL (1.6-2.4)
[2020-08-31 03:43] LABS: ALANINE AMINOTRANSFERASE 8 U/L (0-55); CREATINE KINASE 38 U/L (29-168)
[2020-08-31 03:50] LABS: CREATINE KINASE MB 0.7 NG/ML (<6.6); ERYTHROCYTE SEDIMENTATION RATE 47 MM/HR (0-30); LYMPHOCYTES % (MANUAL) 30 %; MONOCYTES % (MANUAL) 7 %; NEUTROPHILS % (MANUAL) 63 %; RBC MORPH NORMAL
[2020-08-31] MEDS ORDERED: 1/2 NS W/KCL 20 MEQ/L 1,000 ML IV SCH (05:15)
[2020-08-31] MEDS ORDERED: ACETAMINOPHEN 500 MG TAB (TYLENOL) PO PRN (05:15)
[2020-08-31] MEDS ORDERED: ONDANSETRON 4 MG/2 ML (SDV) Z0FRAN IV PRN (05:15)
[2020-08-31] MEDS ORDERED: IBUPROFEN 800 MG (MOTRIN) TAB PO PRN (05:30)
[2020-08-31] MEDS: methylPREDNISolone 125 MG (Solu-MEDROL) VIAL IVP SCH ×2 (05:38→10:54)
[2020-08-31 05:44] LABS: BASOPHILS % (AUTO) 0 % (0-10); EOSINOPHILS % (AUTO) 0 % (0-10); HEMATOCRIT 38 % (35-52); HEMOGLOBIN 13.1 g/dL (11.5-16.0); LYMPHOCYTES % (AUTO) 11 % (12-44); MEAN CORPUSCULAR HEMOGLOBIN 30 pg (25-34); MEAN CORPUSCULAR HGB CONC 35 g/dL (32-36); MEAN CORPUSCULAR VOLUME 86 fL (80-99); MEAN PLATELET VOLUME 9.6 fL (9.0-12.2); MONOCYTES # (AUTO) 1.2 10^3/uL (0.0-1.0); MONOCYTES % (AUTO) 7 % (0-12); NEUTROPHILS # (AUTO) 15.2 10^3/uL (1.8-7.8); NEUTROPHILS % (AUTO) 81 % (42-75); PLATELET COUNT 192 10^3/uL (130-400); WHITE BLOOD COUNT 18.6 10^3/uL (4.3-11.0)
[2020-08-31 05:56] LABS: ALBUMIN 3.8 GM/DL (3.2-4.5); CHLORIDE 98 MMOL/L (98-107); POTASSIUM 3.8 MMOL/L (3.6-5.0); SODIUM 132 MMOL/L (135-145)
[2020-08-31 05:57] LABS: CALCIUM 9.9 MG/DL (8.5-10.1)
[2020-08-31 05:58] LABS: GLUCOSE 140 MG/DL (70-105)
[2020-08-31 05:59] LABS: TOTAL PROTEIN 6.1 GM/DL (6.4-8.2)
[2020-08-31 06:00] LABS: BILIRUBIN,TOTAL 0.8 MG/DL (0.1-1.0); CARBON DIOXIDE 21 MMOL/L (21-32)
[2020-08-31] MEDS ORDERED: RT-ALBUTEROL/IPRATROPIUM 3 ML (DUONEB) VIAL INH PRN (06:00)
[2020-08-31 06:02] LABS: ALKALINE PHOSPHATASE 100 U/L (40-136); CREATININE SERUM 0.82 MG/DL (0.60-1.30); GFR ESTIMATED > 60
[2020-08-31 06:03] LABS: BUN/CREATININE RATIO 11
[2020-08-31 06:05] LABS: ALANINE AMINOTRANSFERASE 8 U/L (0-55)
[2020-08-31] MEDS ORDERED: MONT10TA32 PO (06:23)
[2020-08-31] MEDS ORDERED: LAMO200T5 PO (06:23)
[2020-08-31] MEDS ORDERED: BENZ100C18 PO (06:23)
[2020-08-31] MEDS ORDERED: TRAZ150T72 PO (06:23)
[2020-08-31] MEDS ORDERED: OXYB5TAB13 PO (06:23)
[2020-08-31] MEDS ORDERED: LURA80TA3 PO (06:23)
--- NOTE | 2020-08-31 06:23 | Diagnostic Imaging Report ---
INDICATION: DYSPNEA. TECHNIQUE: Single view chest 3:06 AM. CORRELATION STUDY: 10/08/2018 FINDINGS: The heart size, mediastinal configuration and pulmonary vascularity are within normal limits. Prominent particularly interstitial infiltrates and opacities are present. However, there is slightly more prominent density at the left lung base. There is a suggested nodule at the right lung base 2.3 cm in size. IMPRESSION: 1. Bibasilar opacities left greater than right does raise concern for superimposed pneumonia. 2. Unchanged rounded right lower lung pulmonary nodule. Dictated by: Dictated on workstation # [id number]
[2020-08-31] MEDS ORDERED: IPRA30SP NS (06:27)
[2020-08-31] MEDS ORDERED: RT-ALBUINH IH (06:27)
[2020-08-31] MEDS ORDERED: PANT40TA52 PO (06:27)
[2020-08-31] MEDS: RT-ALBUTEROL/IPRATROPIUM 3 ML (DUONEB) VIAL INH SCH ×5 (06:33→22:38)
[2020-08-31] MEDS ORDERED: FLUT9.9S NS (06:45)
[2020-08-31] MEDS ORDERED: DIPH25TA65 PO (06:45)
[2020-08-31] MEDS: ENOXAPARIN 40 MG/0.4 ML (LOVENOX) SYR SC SCH ×2 (07:38→20:03)
[2020-08-31] MEDS: PROMETHAZINE/ CODEINE SYRUP 5 ML UDC PO PRN ×6 (07:38→20:01)
--- NOTE | 2020-08-31 08:09 | History & Physical-Hospitalist ---
History of Present Illness HPI/Chief Complaint Chief complaint: Shortness of breath with fever History of present illness: This is a 59-year-old white female with a past medical history of oxygen dependent COPD who continues to smoke who completed her Covid vaccines 2 months ago who presents via [facility] with shortness of breath wheezing and fever of 102. She had just seen her primary care provider Amador Cochran who gave her a steroid and allergy medication but she worsened. Patient was found to have infiltrates on chest x-ray exacerbation of COPD so she will be admitted with IV antibiotics IV steroids nebulized treatments and oxygen supplementation. Smoking cessation counseled. Source: patient Exam Limitations: no limitations Date Seen 08/31/20 Time Seen by a Provider: 11:30 Attending Physician Iris Griggs DO [facility] Referring Physician Date of Admission August 31, 2020 at 04:00 Home Medications & Allergies Home Medications Reviewed patient Home Medication Reconciliation performed by pharmacy medication reconciliations inventory technician and/or nursing. Patients Allergies have been reviewed. Allergies Allergies Coded Allergies aspirin (Unverified Allergy, Unknown, 07/01/15) Penicillins (Unverified Adverse Reaction, Mild, N/V, 07/02/15) Past Fautbes-Bpwhex-Dtbhgs Hx Patient Social History Marrital Status: single Employed/Student: unemployed Tobacco Use?: Yes Tobacco type used: Cigarettes Smoking Status: Current Everyday Smoker Substance use?: No Alcohol Use?: No Pt feels they are or have been: No Immunizations Up To Date Date of Influenza Vaccine: Jan 04, 2020 First/Initial COVID19 Vaccinat: JULY 04, 2020 Second COVID19 Vaccination Win: AUGUST 03, 2020 Tetanus Booster (TDap): More Than 5 Years Hepatitis A: No Hepatitis B: No Date of Pneumonia Vaccine: Jun 21, 2012 Seasonal Allergies Seasonal Allergies: No Current Status status: No status: No Advance Directives: No Communicates: Verbally Primary Language: Burmese Preferred Spoken Language: Burmese Is interpretation needed?: No Sensory deficits: Vision impairment Implanted or Applied Medical D: None Past Medical History Surgeries: Eye Surgery, Gallbladder, Tonsillectomy COPD, Emphysema Currently Using CPAP: No High Cholesterol, Hypertension Sexually Transmitted Disease: No HIV/AIDS: No Gastroesophageal Reflux, Gall Bladder Disease Anxiety Blood Disorders: No Family Medical History No Pertinent Family Hx Review of Systems Constitutional: see HPI, fever, malaise, weakness Respiratory: cough, dyspnea on exertion, short of breath, wheezing Physical Exam Physical Exam Vital Signs Vital Signs - First Documented 08/31/20 08/31/20 02:21 06:36 Temp 37.3 Pulse 120 Resp 24 B/P (MAP) 139/56 (83) Pulse Ox 97 O2 Delivery Nasal Cannula O2 Flow Rate 2.00 FiO2 97 Capillary Refill : Less Than 3 Seconds Height, Weight, BMI Height: 5'7.00" Weight: 291lbs. 0.0oz. 131.268423tl; 42.31 BMI Method:Stated General Appearance: No Apparent Distress, Chronically ill Eyes: Right Eye Normal Inspection, Right Eye PERRL HEENT: PERRL/EOMI, Normal ENT Inspection, Pharynx Normal, Moist Mucous Membranes Neck: Full Range of Motion, Normal Inspection, Non Tender Respiratory: Chest Non Tender, No Accessory Muscle Use, No Respiratory Distress, Crackles, Decreased Breath Sounds, Wheezing Cardiovascular: Regular Rate, Rhythm, No Edema, No Gallop, No JVD, No Murmur, Normal Peripheral Pulses Gastrointestinal: Normal Bowel Sounds, No Organomegaly, No Pulsatile Mass, Non Tender, Soft Back: Normal Inspection, No CVA Tenderness, No Vertebral Tenderness Extremity: Normal Capillary Refill, Normal Inspection, Normal Range of Motion, Non Tender, No Calf Tenderness, No Pedal Edema Neurologic/Psychiatric: Alert, Oriented x3, No Motor/Sensory Deficits, Normal Mood/Affect Skin: Normal Color, Warm/Dry Lymphatic: No Adenopathy Results Results/Procedures Labs Laboratory Tests 08/31/20 02:50 08/31/20 05:37 Patient resulted labs reviewed. Assessment/Plan Admission Diagnosis Assessment: Acute exacerbation of COPD Pneumonia Current smoker Chronic hypoxia requiring oxygen supplementation at home Hypertension Plan: IV antibiotics IV steroids Nebulizers Oxygen Admission Status: Inpatient Order (span 2 midnights) Reason for Inpatient Admission: resp failure Diagnosis/Problems Diagnosis/Problems (1) SIRS (systemic inflammatory response syndrome) (2) Pneumonia Status: Acute (3) COPD (chronic obstructive pulmonary disease) Status: Acute (4) Hyponatremia IRIS GRIGGS DO August 31, 2020 08:09
[2020-08-31] MEDS: BENZONATATE 100 MG (TESSALON) CAPSULE PO PRN ×2 (09:45→18:14)
[2020-08-31] MEDS: methylPREDNISolone 40 MG/ML (Solu-MEDROL) VIAL IVP SCH ×2 (18:06→23:36)
[2020-08-31] MEDS: traZODone 150 MG (DESYREL) TABLET PO SCH (20:01)
[2020-08-31] MEDS: diphenhydrAMINE 25 MG TAB (BENADRYL) PO SCH (20:02)
[2020-08-31] MEDS: OXYBUTYNIN (DITROPAN) 5 MG TAB PO SCH (20:02)
[2020-08-31] MEDS ORDERED: NON-FORMULARY MEDICATION 1 EA EA (Fluticasone Propionate (Flonase Allergy Relief) 2 SPRAY) NS SCH (21:00)
[2020-09-01] MEDS: PROMETHAZINE/ CODEINE SYRUP 5 ML UDC PO PRN ×5 (00:01→20:24)
[2020-09-01] MEDS: RT-ALBUTEROL/IPRATROPIUM 3 ML (DUONEB) VIAL INH SCH ×6 (03:07→22:04)
[2020-09-01 03:40] VITALS: BP 99/61
[2020-09-01] MEDS: methylPREDNISolone 40 MG/ML (Solu-MEDROL) VIAL IVP SCH ×3 (05:07→20:23)
[2020-09-01] MEDS: cefTRIAXone FOR IV USE 1,000 MG in WATER (STERILE) FOR INJECTION 10 ML IV SCH (05:07)
[2020-09-01] MEDS: AZITHROMYCIN INJECTION 500 MG in NS (IVPB) 250 ML IV SCH (05:07)
[2020-09-01 05:31] LABS: BASOPHILS % (AUTO) 0 % (0-10); EOSINOPHILS % (AUTO) 0 % (0-10); HEMATOCRIT 39 % (35-52); HEMOGLOBIN 12.9 g/dL (11.5-16.0); LYMPHOCYTES # (AUTO) 2.1 10^3/uL (1.0-4.0); LYMPHOCYTES % (AUTO) 11 % (12-44); MEAN CORPUSCULAR HEMOGLOBIN 30 pg (25-34); MEAN CORPUSCULAR HGB CONC 33 g/dL (32-36); MEAN CORPUSCULAR VOLUME 89 fL (80-99); MONOCYTES # (AUTO) 0.9 10^3/uL (0.0-1.0); MONOCYTES % (AUTO) 5 % (0-12); NEUTROPHILS % (AUTO) 83 % (42-75); PLATELET COUNT 219 10^3/uL (130-400); WHITE BLOOD COUNT 19.2 10^3/uL (4.3-11.0)
[2020-09-01 05:58] LABS: ALBUMIN 3.9 GM/DL (3.2-4.5); CHLORIDE 102 MMOL/L (98-107); POTASSIUM 4.6 MMOL/L (3.6-5.0); SODIUM 137 MMOL/L (135-145)
[2020-09-01 05:59] LABS: CALCIUM 10.8 MG/DL (8.5-10.1)
[2020-09-01 06:00] LABS: GLUCOSE 154 MG/DL (70-105)
[2020-09-01 06:01] LABS: TOTAL PROTEIN 6.3 GM/DL (6.4-8.2)
[2020-09-01 06:02] LABS: BILIRUBIN,TOTAL 0.4 MG/DL (0.1-1.0); CARBON DIOXIDE 21 MMOL/L (21-32)
[2020-09-01 06:04] LABS: ALKALINE PHOSPHATASE 91 U/L (40-136); CREATININE SERUM 0.82 MG/DL (0.60-1.30); GFR ESTIMATED > 60
[2020-09-01 06:05] LABS: BUN/CREATININE RATIO 15
[2020-09-01 06:07] LABS: ALANINE AMINOTRANSFERASE 8 U/L (0-55)
--- NOTE | 2020-09-01 06:34 | Progress Note - Hospitalist ---
Subjective HPI/CC On Admission Date Seen by Provider: September 01, 2020 Time Seen by Provider: 11:00 Chief complaint: Shortness of breath with fever History of present illness: This is a 59-year-old white female with a past med ical history of oxygen dependent COPD who continues to smoke who completed her Covid vaccines 2 months ago who presents via [facility] with shortness of breath wheezing and fever of 102. She had just seen her primary care provider Amador Cochran who gave her a steroid and allergy medication but she worsened. Patient was found to have infiltrates on chest x-ray exacerbation of COPD so she will be admitted with IV antibiotics IV steroids nebulized treatments and oxygen supplementation. Smoking cessation counseled. Subjective/Events-last exam Patient much improved Wheezing is better but coarseness is on end expiratory phase Decrease in steroids to 40 mg IV every 12 hours Discontinue telemetry Ambulating around No bowel movement yet Review of Systems General: Fatigue, Malaise Pulmonary: Cough Focused Exam Lactate Level 08/31/20 02:50: Lactic Acid Level 2.00 Objective Exam Vital Signs Vital Signs Date Time Temp Pulse Resp B/P (MAP) Pulse Ox O2 Delivery O2 Flow Rate FiO2 09/01/20 16:00 36.6 86 18 115/55 (75) 92 Nasal Cannula 2.00 09/01/20 14:12 93 Capillary Refill : Less Than 3 Seconds General Appearance: No Apparent Distress, WD/WN, Chronically ill Respiratory: Crackles, Decreased Breath Sounds, Rales, Wheezing Cardiovascular: Regular Rate, Rhythm Neurologic/Psychiatric: Alert, Oriented x3, No Motor/Sensory Deficits, Normal Mood/Affect Results/Procedures Lab Laboratory Tests 09/01/20 05:11 Patient resulted labs reviewed. Assessment/Plan Assessment and Plan Assess & Plan/Chief Complaint Assessment: Acute exacerbation of COPD Pneumonia Current smoker Chronic hypoxia requiring oxygen supplementation at home Hypertension Plan: IV antibiotics IV steroids Nebulizers Oxygen 09/01/2020: Discontinue telemetry Decrease steroids Maintain nebulizers Maintain oxygen Diagnosis/Problems Diagnosis/Problems (1) SIRS (systemic inflammatory response syndrome) (2) Pneumonia Status: Acute (3) COPD (chronic obstructive pulmonary disease) Status: Acute (4) Hyponatremia GERARDO IBARRA DO September 01, 2020 06:34
[2020-09-01 07:56] VITALS: BP 113/55
[2020-09-01] MEDS: ENOXAPARIN 40 MG/0.4 ML (LOVENOX) SYR SC SCH ×2 (08:35→20:23)
[2020-09-01] MEDS: BENZONATATE 100 MG (TESSALON) CAPSULE PO PRN ×2 (08:35→21:56)
[2020-09-01] MEDS: lisINopril 10 MG (PRINIVIL) TABLET PO SCH (08:35)
[2020-09-01] MEDS: MONTELUKAST 10 MG (SINGULAIR) TAB PO SCH (08:36)
[2020-09-01] MEDS: OXYBUTYNIN (DITROPAN) 5 MG TAB PO SCH ×2 (08:36→20:23)
[2020-09-01] MEDS: PANTOPRAZOLE 40 MG (PROTONIX) TAB PO SCH (08:36)
[2020-09-01] MEDS ORDERED: LURASIDONE 80 MG (LATUDA) TABLET NON-FORMULARY PO SCH (09:00)
[2020-09-01 11:36] VITALS: BP 107/51
[2020-09-01 16:00] VITALS: BP 115/55
[2020-09-01 20:00] VITALS: BP 114/56
[2020-09-01] MEDS: diphenhydrAMINE 25 MG TAB (BENADRYL) PO SCH (20:22)
[2020-09-01] MEDS: traZODone 150 MG (DESYREL) TABLET PO SCH (20:22)
[2020-09-01 23:46] VITALS: BP 112/55
[2020-09-02] MEDS: RT-ALBUTEROL/IPRATROPIUM 3 ML (DUONEB) VIAL INH SCH ×3 (01:52→10:33)
[2020-09-02 04:09] VITALS: BP 116/57
[2020-09-02] MEDS: PROMETHAZINE/ CODEINE SYRUP 5 ML UDC PO PRN ×2 (04:19→08:52)
[2020-09-02] MEDS: cefTRIAXone FOR IV USE 1,000 MG in WATER (STERILE) FOR INJECTION 10 ML IV SCH (05:09)
[2020-09-02] MEDS: AZITHROMYCIN INJECTION 500 MG in NS (IVPB) 250 ML IV SCH (05:09)
[2020-09-02 08:00] VITALS: BP 106/59
[2020-09-02] MEDS: methylPREDNISolone 40 MG/ML (Solu-MEDROL) VIAL IVP SCH (08:52)
[2020-09-02] MEDS: OXYBUTYNIN (DITROPAN) 5 MG TAB PO SCH (08:53)
[2020-09-02] MEDS: ENOXAPARIN 40 MG/0.4 ML (LOVENOX) SYR SC SCH (08:53)
[2020-09-02] MEDS: lisINopril 10 MG (PRINIVIL) TABLET PO SCH (08:53)
[2020-09-02] MEDS: PANTOPRAZOLE 40 MG (PROTONIX) TAB PO SCH (08:53)
[2020-09-02] MEDS: MONTELUKAST 10 MG (SINGULAIR) TAB PO SCH (08:53)
--- NOTE | 2020-09-02 10:16 | Progress Note - Hospitalist ---
Subjective HPI/CC On Admission Date Seen by Provider: September 02, 2020 Chief complaint: Shortness of breath with fever History of present illness: This is a 59-year-old white female with a past medical history of oxygen dependent COPD who continues to smoke who completed her Covid vaccines 2 months ago who presents via [facility] EMS with sh ortness of breath wheezing and fever of 102. She had just seen her primary care provider Amador Cochran who gave her a steroid and allergy medication but she worsened. Patient was found to have infiltrates on chest x-ray exacerbation of COPD so she will be admitted with IV antibiotics IV steroids nebulized treatments and oxygen supplementation. Smoking cessation counseled. Focused Exam Lactate Level 08/31/20 02:50: Lactic Acid Level 2.00 Objective Exam Vital Signs Vital Signs Date Time Temp Pulse Resp B/P (MAP) Pulse Ox O2 Delivery O2 Flow Rate FiO2 09/02/20 10:33 93 Nasal Cannula 2.00 09/02/20 08:00 36.1 77 18 106/59 (75) 09/02/20 01:53 94 Capillary Refill : Less Than 3 Seconds Results/Procedures Lab Laboratory Tests 09/02/20 10:37 Patient resulted labs reviewed. Assessment/Plan Assessment and Plan Assess & Plan/Chief Complaint Assessment: Acute exacerbation of COPD Pneumonia Current smoker Chronic hypoxia requiring oxygen supplementation at home Hypertension Plan: IV antibiotics IV steroids Nebulizers Oxygen 09/01/2020: Discontinue telemetry Decrease steroids Maintain nebulizers Maintain oxygen Diagnosis/Problems Diagnosis/Problems (1) SIRS (systemic inflammatory response syndrome) (2) Pneumonia Status: Acute (3) COPD (chronic obstructive pulmonary disease) Status: Acute (4) Hyponatremia GERARDO IBARRA DO September 02, 2020 10:16
[2020-09-02 11:03] LABS: HEMATOCRIT 40 % (35-52); HEMOGLOBIN 13.3 g/dL (11.5-16.0); MEAN CORPUSCULAR HEMOGLOBIN 30 pg (25-34); MEAN CORPUSCULAR HGB CONC 33 g/dL (32-36); MEAN CORPUSCULAR VOLUME 89 fL (80-99); MEAN PLATELET VOLUME 11.4 fL (9.0-12.2); PLATELET COUNT 150 10^3/uL (130-400); WHITE BLOOD COUNT 21.6 10^3/uL (4.3-11.0)
[2020-09-02 11:17] LABS: CHLORIDE 101 MMOL/L (98-107); POTASSIUM 4.4 MMOL/L (3.6-5.0); SODIUM 138 MMOL/L (135-145)
[2020-09-02 11:18] LABS: CALCIUM 10.6 MG/DL (8.5-10.1)
[2020-09-02 11:19] LABS: GLUCOSE 127 MG/DL (70-105)
[2020-09-02 11:20] LABS: TOTAL PROTEIN 6.3 GM/DL (6.4-8.2)
[2020-09-02 11:21] LABS: BILIRUBIN,TOTAL 0.3 MG/DL (0.1-1.0); CARBON DIOXIDE 22 MMOL/L (21-32)
[2020-09-02 11:23] LABS: ALKALINE PHOSPHATASE 92 U/L (40-136); CREATININE SERUM 0.81 MG/DL (0.60-1.30); GFR ESTIMATED > 60
[2020-09-02 11:24] LABS: BUN/CREATININE RATIO 20
[2020-09-02 11:26] LABS: ALANINE AMINOTRANSFERASE 11 U/L (0-55)
[2020-09-02] MEDS ORDERED: PROM5SYR PO ×2 (11:42→11:47)
[2020-09-02] MEDS ORDERED: CEFD300C3 PO (11:42)
[2020-09-02] MEDS ORDERED: PRED10TA22 PO (11:42)
--- NOTE | 2020-09-02 11:48 | Discharge Summary ---
Discharge Summary Hospital Course Was the Problem List Reviewed?: Yes Problems/Dx: (1) SIRS (systemic inflammatory response syndrome) (2) Pneumonia Status: Acute (3) COPD (chronic obstructive pulmonary disease) Status: Acute (4) Hyponatremia Hospital Course Date of Admission: August 31, 2020 at 04:00 Admission Diagnosis : Family Physician/Provider: Chris Cochran Date of Discharge: 09/02/20 Discharge Diagnosis: SIRS, pneumonia, acute exacerbation of COPD, hypoxia chronic O2 dependent, smoker Hospital Course: Short hospital course after she was admitted for pneumonia and acute exacerbation of COPD requiring IV steroids IV antibiotics and nebulized treatme nts and oxygen supplementation. Overall she did very well had no significant decline in status labs remained stable she was able to be at baseline oxygen level tolerating activity patient was deemed stable for discharge at time of decision. Labs and Pending Lab Test: Laboratory Tests 09/02/20 10:37: White Blood Count 21.6H, Red Blood Count 4.48, Hemoglobin 13.3, Hematocrit 40, Mean Corpuscular Volume 89, Mean Corpuscular Hemoglobin 30, Mean Corpuscular Hemoglobin Concent 33, Red Cell Distribution Width 12.4, Platelet Count 150, Mean Platelet Volume 11.4, Sodium Level 138, Potassium Level 4.4, Chloride Level 101, Carbon Dioxide Level 22, Anion Gap 15H, Blood Urea Nitrogen 16, Creatinine 0.81, Estimat Glomerular Filtration Rate > 60, BUN/Creatinine Ratio 20, Glucose Level 127H, Calcium Level 10.6H, Corrected Calcium 10.6H, Total Bilirubin 0.3, Aspartate Amino Transf (AST/SGOT) 10, Alanine Aminotransferase (ALT/SGPT) 11, Alkaline Phosphatase 92, Total Protein 6.3L, Albumin 4.0 Microbiology 08/31/20 Blood Culture - Preliminary, Resulted No growth 08/31/20 Gram Stain - Final, Resulted 08/31/20 Sputum Culture - Preliminary, Resulted Haemophilus influenza See Comments Usual upper respiratory [place] Home Meds Active Prednisone 10 Mg Tab.ds.pk 10 Mg PO DAILY Take 6 tabs(60mg)daily,decrease by 1 tab(10MG)daily. Cefdinir 300 Mg Capsule 300 Mg PO BID Reported Benadryl Allergy (Diphenhydramine HCl) 25 Mg Tablet 25 Mg PO HS Flonase Allergy Relief (Fluticasone Propionate) 9.9 Ml [place].susp 2 [place] NS BID 2 SPRAYS PER NOSTRIL DAILY X 2 DAYS THEN 1 SPRAY DAILY Proair Hfa (Albuterol Sulfate) 1 Puff Puff 2 Puff IH Q4H PRN 1 PUFF = 90 MCG Ipratropium [place] 30 Ml [place] 30 Ml NS Pantoprazole Sodium 40 Mg Tablet.dr 40 Mg PO DAILY Lamotrigine 200 Mg Tablet 200 Mg PO HS Tessalon Perles (Benzonatate) 100 Mg Capsule 100 Mg PO TID PRN Trazodone HCl 150 Mg Tablet 150 Mg PO HS Prednisone 10 Mg Tab TAKE 4 TABS DAILY X4, TAKE 3 TABS DAILY X4, TAKE 2 TABS DAILY X4, THEN TAKE 1 TAB DAILY X4 Oxybutynin Chloride 5 Mg Tablet 5 Mg PO BID Latuda (Lurasidone HCl) 80 Mg Tablet 80 Mg PO DAILY Montelukast Sodium 10 Mg Tablet 10 Mg PO DAILY Atorvastatin Calcium 20 Mg Tablet 20 Mg PO HS Lisinopril 10 Mg Tablet 10 Mg PO DAILY Assessment/Pt Instructions [facility] Cochran this week Discharge Planning: <30 minutes discharge planning Discharge Instructions Discharge Diet: No Restrictions Activity as Tolerated: Yes Discharge Physical Examination Vital Signs Vital Signs Date Time Temp Pulse Resp B/P (MAP) Pulse Ox O2 Delivery O2 Flow Rate FiO2 09/02/20 10:33 93 Nasal Cannula 2.00 09/02/20 08:00 36.1 77 18 106/59 (75) 09/02/20 01:53 94 General Appearance: No Apparent Distress, WD/WN, Chronically ill Respiratory: No Accessory Muscle Use, No Respiratory Distress, Decreased Breath Sounds Cardiovascular: Regular Rate, Rhythm Allergies: Coded Allergies: aspirin (Unverified Allergy, Unknown, 07/01/15) Penicillins (Unverified Adverse Reaction, Mild, N/V, 07/02/15) Discharge Summary Date of Admission August 31, 2020 at 04:00 Date of Discharge Discharge Date: September 02, 2020 Admission Diagnosis Assessment: Acute exacerbation of COPD Pneumonia Current smoker Chronic hypoxia requiring oxygen supplementation at home Hypertension Plan: IV antibiotics IV steroids Nebulizers Oxygen Discharge Diagnosis Assessment: Acute exacerbation of COPD Pneumonia Current smoker Chronic hypoxia requiring oxygen supplementation at home Hypertension Plan: IV antibiotics IV steroids Nebulizers Oxygen 09/01/2020: Discontinue telemetry Decrease steroids Maintain nebulizers Maintain oxygen (1) SIRS (systemic inflammatory response syndrome) (2) Pneumonia Status: Acute (3) COPD (chronic obstructive pulmonary disease) Status: Acute (4) Hyponatremia GERARDO IBARRA DO September 02, 2020 11:48
[2020-09-02 12:00] VITALS: BP 119/75
== END 2020-09-02 12:15 | disposition home or self-care (01) | DRG 190 ==
LOC: EDUNIT# 02:21 → ER 02:23 → 4TH 04:00
PROVIDERS: ADMIT Internal Medicine; ATTEND Internal Medicine
DX: J43.9 Emphysema, unspecified (principal); J18.9 Pneumonia, unspecified organism; R09.02 Hypoxemia; E87.6 Hypokalemia; Z99.81 Dependence on supplemental oxygen; F17.210 Nicotine dependence, cigarettes, uncomplicated; E78.00 Pure hypercholesterolemia, unspecified; I10 Essential (primary) hypertension; K21.9 Gastro-esophageal reflux disease without esophagitis; F41.9 Anxiety disorder, unspecified; Z20.822 Contact with and (suspected) exposure to COVID-19; Z88.6 Allergy status to analgesic agent; Z88.0 Allergy status to penicillin
CPT/HCPCS: 36415; 71045; 80053; 82550; 82553; 83605; 83615; 83735; 83880; 84145; 84484; 85007; 85025; 85027; 85379; 85652; 86141; 87040; 87070; 87077; 87185; 87205; 87636; 93005; 93041; 94640; 94760

== ENCOUNTER → 2020-09-19 | Outpatient (CLI) | payer MEDICARE, MEDICAID ==
[~2020-09-19] MED LIST changes: +BENZ100C18 PO; +CATHETER FLUSH 10 ML SYR IV PRN; +DIPH25TA65 PO; +FLUT9.9S NS; +HOLD METFORMIN - RECEIVED CONTRAST 20 ML VIAL IV SCH; +IOHEXOL 350 MG/ML 100 ML (OMNIPAQUE 350) VIAL IV ONE; +IPRA30SP NS; +LAMO200T5 PO; +LURA80TA3 PO; +MONT10TA32 PO; +NS 100 ML (IVPB) BAG IV ONE; +OXYB5TAB13 PO; +PANT40TA52 PO; +PRED10TA22 PO; +PROM5SYR PO; +TRAZ150T72 PO
--- NOTE | 2020-09-19 18:24 | Diagnostic Imaging Report ---
PROCEDURE: CT chest with contrast only. TECHNIQUE: Multiple contiguous axial images were obtained through the chest after administration of intravenous contrast. Auto Exposure Controls were utilized during the CT exam to meet ALARA standards for radiation dose reduction. INDICATION: Pulmonary nodule. COMPARISON: 12/20/2018 and 04/15/2018. FINDINGS: 2 cm hypodense nodule within the left lobe of the thyroid gland is again identified, appearing similar to the prior exams. No significant adenopathy within the chest. No aneurysmal dilatation of the thoracic aorta with mild scattered vascular calcifications, including within the coronary arteries. The heart is within normal limits in size. No pericardial effusion. No pleural effusion. No pneumothorax. Mild background emphysematous changes. A 0.4 cm left lower lobe pulmonary nodule, series 3, image 100, is unchanged from the prior exams. A 2.4 x 2.5 cm solid right lower lobe pulmonary nodule is present. This has minimally increased in size since the prior examinations when it measured 2.2 x 2.1 cm. No new suspicious pulmonary nodule. The trachea is patent. Tiny hiatal hernia. Cholecystectomy. The visualized upper abdomen is otherwise unremarkable. Mild scattered osseous degenerative changes without acute osseous abnormality. IMPRESSION: A 2.5 cm low-density solid right lower lobe pulmonary nodule having slightly increased in size from prior imaging. Recommend CT-guided biopsy for further evaluation as this could relate to a low-grade slow-growing neoplasm. Mild background emphysematous changes. Additional stable findings as described above. Dictated by: Dictated on workstation # [id number]
== END ==
LOC: RAD 16:15
PROVIDERS: ATTEND Nurse Practitioner Family
DX: J43.9 Emphysema, unspecified (principal); R91.1 Solitary pulmonary nodule; E04.1 Nontoxic single thyroid nodule; K44.9 Diaphragmatic hernia without obstruction or gangrene
CPT/HCPCS: 71260

== ENCOUNTER → 2020-10-22 | Outpatient (CLI) | payer MEDICARE, MEDICAID ==
[~2020-10-22] MED LIST changes: -CATHETER FLUSH 10 ML SYR IV PRN; -HOLD METFORMIN - RECEIVED CONTRAST 20 ML VIAL IV SCH; -IOHEXOL 350 MG/ML 100 ML (OMNIPAQUE 350) VIAL IV ONE; -NS 100 ML (IVPB) BAG IV ONE
--- NOTE | 2020-10-22 17:58 | Diagnostic Imaging Report ---
INDICATION: Lung mass. COMPARISON: Exam is compared with metabolic PET/CT 07/16/2015. TECHNIQUE: This patient received an intravenous dose of 14.9 mCi 18-F fluorodeoxyglucose. After one hour, CT fusion PET from the calvarial vertex to the upper thighs was performed. FINDINGS: A circumscribed mass in the right lower lobe showed further mild interval increase in size, now measuring 2 cm, previously 1.6 cm. Mass has unchanged low levels of metabolic activity with peak SUV value of 2.3 SUV. No new lung mass, and no suspicious hypermetabolic pulmonary nodule. There are no enlarged or metabolically active thoracic lymph nodes. Heterogeneous left greater than right lobe thyromegaly is non-hypermetabolic. No FDG-avid cervical lymph nodes. There is motion degradation at and just below the level of the skull base and mandible where there is likely some physiologic muscular hypermetabolism without pathological CT correlate. Scalp, calvarium, and intracranial contents as well as orbits and sinonasal spaces showed no suspicious finding. Below the diaphragms, excretion of radiopharmacy by bowel loops and urinary tracts is physiologic. There is some incidental urine/activity superficial contamination about the groin. There is no suspicious or FDG-avid bony lesion. IMPRESSION: 1. 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 2. No suspicious finding at today's exam. Dictated by: Dictated on workstation # [id number]
== END ==
LOC: RAD 12:45
PROVIDERS: ATTEND Nurse Practitioner Family
DX: R91.8 Other nonspecific abnormal finding of lung field (principal); R91.1 Solitary pulmonary nodule
CPT/HCPCS: 78815; A9552

== ENCOUNTER 2021-02-15 13:10 | Emergency (ER) | payer MEDICARE, MEDICAID ==
[~2021-02-15] VITALS: Ht 170 cm; Wt 121.0 kg
--- NOTE | 2021-02-15 13:39 | ED General ---
General Stated Complaint: COUGH,SOB,COPD Source of Information: Patient Exam Limitations: No Limitations History of Present Illness Date Seen by Provider: Feb 15, 2021 Time Seen by Provider: 13:37 Initial Comments To ER with cough short of breath and history of COPD. She continues to smoke 1 pack of cigarettes per day. She is currently on antibiotics and steroids. Was seen at the clinic today for ongoing shortness of breath and referred here to the emergency room. She is oxygen dependent at home. Timing/Duration: 4-5 Days Severity: Moderate Associated Systoms: Cough, Shortness of Air Allergies and Home Medications Allergies Coded Allergies: aspirin (Unverified Allergy, Unknown, 07/01/15) Penicillins (Unverified Adverse Reaction, Mild, N/V, 07/02/15) Patient Home Medication List Home Medication List Reviewed: Yes Albuterol Sulfate (Proair Hfa) 1 Puff Puff, 2 PUFF IH Q4H PRN for SHORTNESS OF BREATH, (Reported) Entered as Reported by: MARYANN GARCIA on 08/31/20626 Atorvastatin Calcium (Atorvastatin Calcium) 20 Mg Tablet, 20 MG PO HS, (Reported) Entered as Reported by: KHRIS GONZALES on 06/07/19 1513 Benzonatate (Tessalon Perles) 100 Mg Capsule, 100 MG PO TID PRN for COUGH, (Reported) Entered as Reported by: MARYANN GARCIA on 08/31/20622 Cefdinir (Cefdinir) 300 Mg Capsule, 300 MG PO BID Prescribed by: GERARDO IBARRA on 09/02/20 1142 Diphenhydramine HCl (Benadryl Allergy) 25 Mg Tablet, 25 MG PO HS, (Reported) Entered as Reported by: PELON VENTURA on 08/31/20644 Fluticasone Propionate (Flonase Allergy Relief) 9.9 Ml [place].susp, 2 SPRAY NS BID, (Reported) Entered as Reported by: PELON VENTURA on 08/31/20644 Ipratropium [place] (Ipratropium [place]) 30 Ml [place], 30 ML NS, (Reported) Entered as Reported by: MARYANN GARCIA on 08/31/20626 Lamotrigine (Lamotrigine) 200 Mg Tablet, 200 MG PO HS, (Reported) Entered as Reported by: MARYANN GARCIA on 08/31/20622 Lisinopril (Lisinopril) 10 Mg Tablet, 10 MG PO DAILY, (Reported) Entered as Reported by: KHRIS GONZALES on 06/07/19 151 Lurasidone HCl (Latuda) 80 Mg Tablet, 80 MG PO DAILY, (Reported) Entered as Reported by: MARYANN GARCIA on 08/31/20622 Montelukast Sodium (Montelukast Sodium) 10 Mg Tablet, 10 MG PO DAILY, (Reported) Entered as Reported by: MARYANN GARCIA on 08/31/20622 Oxybutynin Chloride (Oxybutynin Chloride) 5 Mg Tablet, 5 MG PO BID, (Reported) Entered as Reported by: MARYANN GARCIA on 08/31/20622 Pantoprazole Sodium (Pantoprazole Sodium) 40 Mg Tablet.dr, 40 MG PO DAILY, (Reported) Entered as Reported by: MARYANN GARCIA on 08/31/20626 Prednisone (Prednisone) 10 Mg Tab, (Reported) Entered as Reported by: MARYANN GARCIA on 08/31/20622 Prednisone (Prednisone) 10 Mg Tab.ds.pk, 10 MG PO DAILY Prescribed by: GERARDO IBARRA on 09/02/20 1142 Promethazine HCl/Codeine (Prometh-Codein 6.25-10 mg/5 ml) 5 Ml Sy[place], 5 ML PO Q4H Prescribed by: GERARDO IBARRA on 09/02/20 1148 Trazodone HCl (Trazodone HCl) 150 Mg Tablet, 150 MG PO HS, (Reported) Entered as Reported by: MARYANN GARCIA on 08/31/20622 Review of Systems Review of Systems Constitutional: see HPI EENTM: see HPI Respiratory: see HPI, cough, wheezing Cardiovascular: no symptoms reported Genitourinary: no symptoms reported Musculoskeletal: no symptoms reported Skin: no symptoms reported Psychiatric/Neurological: No Symptoms Reported Hematologic/Lymphatic: No Symptoms Reported Past Kgaxxbf-Dciqwe-Mdweim Hx Seasonal Allergies Seasonal Allergies: No Past Medical History Surgeries: Yes (JESENIA 1979; BILATERAL CATARACT SURGERY) Eye Surgery, Gallbladder, Tonsillectomy Respiratory: Yes (O2 AT HS 3L/NC AND PRN) COPD, Emphysema Currently Using CPAP: No Cardiac: Yes High Cholesterol, Hypertension Neurological: No Reproductive Disorders: No Sexually Transmitted Disease: No HIV/AIDS: No Genitourinary: No Gastrointestinal: Yes Gastroesophageal Reflux, Gall Bladder Disease Musculoskeletal: No Endocrine: No HEENT: No Cancer: No Psychosocial: Yes Anxiety Integumentary: No Blood Disorders: No Family Medical History No Pertinent Family Hx Physical Exam Vital Signs Vital Signs - First Documented 02/15/21 02/15/21 13:25 14:51 Temp 36.3 Pulse 92 Resp 18 B/P (MAP) 125/83 (97) Pulse Ox 96 O2 Delivery Nasal Cannula O2 Flow Rate 2.00 Capillary Refill : Height, Weight, BMI Height: 5'7.00" Weight: 291lbs. 0.0oz. 131.431597gj; 42.31 BMI Method:Stated General Appearance: No Apparent Distress, WD/WN, Other (93% on baseline 2 L) Eyes: Bilateral Eye Normal Inspection, Bilateral Eye PERRL, Bilateral Eye EOMI HEENT: PERRL/EOMI, TMs Normal Neck: Full Range of Motion, Normal Inspection Respiratory: Wheezing Cardiovascular: Regular Rate, Rhythm, Normal Peripheral Pulses Gastrointestinal: Normal Bowel Sounds, Non Tender, Soft Extremity: Normal Capillary Refill, Normal Inspection Neurologic/Psychiatric: Alert, Oriented x3 Skin: Normal Color, Warm/Dry Progress/Results/Core Measures Suspected Sepsis SIRS Temperature: Pulse: Respiratory Rate: Laboratory Tests 02/15/21 13:20: White Blood Count 12.3H Blood Pressure / Mean: Laboratory Tests 02/15/21 13:20: Creatinine 0.74, Platelet Count 210, Total Bilirubin 0.7 Results/Orders Lab Results Laboratory Tests Test 02/15/21 13:20 Range/Units White Blood Count 12.3 H 4.3-11.0 10^3/uL Red Blood Count 4.35 3.80-5.11 10^6/uL Hemoglobin 13.2 11.5-16.0 g/dL Hematocrit 38 35-52 % Mean Corpuscular Volume 88 80-99 fL Mean Corpuscular Hemoglobin 30 25-34 pg Mean Corpuscular Hemoglobin Concent 34 32-36 g/dL Red Cell Distribution Width 12.7 10.0-14.5 % Platelet Count 210 130-400 10^3/uL Mean Platelet Volume 9.7 9.0-12.2 fL Immature Granulocyte % (Auto) 1 % Neutrophils (%) (Auto) 79 H 42-75 % Lymphocytes (%) (Auto) 16 12-44 % Monocytes (%) (Auto) 4 0-12 % Eosinophils (%) (Auto) 0 0-10 % Basophils (%) (Auto) 0 0-10 % Neutrophils # (Auto) 9.7 H 1.8-7.8 10^3/uL Lymphocytes # (Auto) 2.0 1.0-4.0 10^3/uL Monocytes # (Auto) 0.5 0.0-1.0 10^3/uL Eosinophils # (Auto) 0.0 0.0-0.3 10^3/uL Basophils # (Auto) 0.0 0.0-0.1 10^3/uL Immature Granulocyte # (Auto) 0.1 0.0-0.1 10^3/uL Blood Gas Puncture Site LT RAD Blood Gas Patient Temperature 37.2 Arterial Blood pH 7.40 7.37-7.43 Arterial Blood Partial Pressure CO2 45 35-45 MMHG Arterial Blood Partial Pressure O2 70 L 79-93 MMHG Arterial Blood HCO3 27 23-27 MMOL/L Arterial Blood Total CO2 28.1 21.0-31.0 MMOL/L Arterial Blood Oxygen Saturation 95 94-100 % Arterial Blood Base Excess 2.4 -2.5-2.5 MMOL/L Bharat Test YES-POS Blood Gas Ventilator Setting NO Blood Gas Inspired Oxygen 3 L Sodium Level 136 135-145 MMOL/L Potassium Level 3.8 3.6-5.0 MMOL/L Chloride Level 101 98-107 MMOL/L Carbon Dioxide Level 21 21-32 MMOL/L Anion Gap 14 5-14 MMOL/L Blood Urea Nitrogen 5 L 7-18 MG/DL Creatinine 0.74 0.60-1.30 MG/DL Estimat Glomerular Filtration Rate 80 BUN/Creatinine Ratio 7 Glucose Level 123 H 70-105 MG/DL Calcium Level 10.2 H 8.5-10.1 MG/DL Corrected Calcium 10.1 8.5-10.1 MG/DL Total Bilirubin 0.7 0.1-1.0 MG/DL Aspartate Amino Transf (AST/SGOT) 11 5-34 U/L Alanine Aminotransferase (ALT/SGPT) 7 0-55 U/L Alkaline Phosphatase 99 40-136 U/L B-Type Natriuretic Peptide 20.6 <100.0 PG/ML Total Protein 6.8 6.4-8.2 GM/DL Albumin 4.1 3.2-4.5 GM/DL Procalcitonin 0.02 <0.10 NG/ML Influenza Type A (RT-PCR) Not Detected Not Detecte Influenza Type B (RT-PCR) Not Detected Not Detecte SARS-CoV-2 RNA (RT-PCR) Not Detected Not Detecte My Orders Orders - CHRISTOFER HU APRN Procalcitonin (Pct) (02/15/21 13:34) Cbc With Automated Diff (02/15/21 13:34) Comprehensive Metabolic Panel (02/15/21 13:34) BNP (02/15/21 13:34) Ed Iv/Invasive Line Start (02/15/21 13:34) Chest 1 View, Ap/Pa Only (02/15/21 13:34) Arterial Blood Gas (02/15/21 13:34) Covid 19 Inhouse Test (02/15/21 13:34) Influenza A And B By Pcr (02/15/21 13:34) Albuterol/Ipra Inhalation Soln (Duoneb I (02/15/21 14:45) Albuterol Pre-Mix Nebs (Rt) (Proventil (02/15/21 14:45) Svn Small Volume Nebulizer (02/15/21 14:33) Svn Small Volume Nebulizer (02/15/21 14:33) Methylprednisolone Sod Succ (Solu-Medrol (02/15/21 14:45) Medications Given in ED Current Medications Medications Dose Ordered Sig/Brian Route Start Time Stop Time Status Last Admin Dose Admin Albuterol Sulfate 12.5 mg ONCE ONCE INH 02/15/21 14:45 02/15/21 14:46 DC 02/15/21 14:46 12.5 MG Albuterol/ Ipratropium 3 ml ONCE ONCE INH 02/15/21 14:45 02/15/21 14:46 DC 02/15/21 14:46 3 ML Vital Signs/I&O 02/15/21 02/15/21 13:25 14:51 Temp 36.3 Pulse 92 Resp 18 B/P (MAP) 125/83 (97) Pulse Ox 96 92 O2 Delivery Nasal Cannula O2 Flow Rate 2.00 Capillary Refill : Departure Impression Primary Impression: COPD exacerbation Disposition: 01 HOME, SELF-CARE Condition: Stable Departure-Patient Inst. Decision time for Depature: 14:39 Referrals: [facility] (PCP) Primary Care Physician KATERINA SMITH (Family) Primary Care Physician Patient Instructions: Exacerbation of COPD CHRISTOFER HU APRN Feb 15, 2021 13:38
[2021-02-15 13:41] LABS: ABG BASE EXCESS 2.4 MMOL/L (-2.5-2.5); ABG OXYGEN SATURATION 95 % (94-100); ABG PCO2 45 MMHG (35-45); ABG PO2 70 MMHG (79-93); ABG TCO2 28.1 MMOL/L (21.0-31.0); ALLENS TEST YES-POS; INSPIRED O2 3 L; PATIENT TEMP 37.2; VENTILATOR NO
[2021-02-15 13:45] LABS: BASOPHILS % (AUTO) 0 % (0-10); EOSINOPHILS % (AUTO) 0 % (0-10); HEMATOCRIT 38 % (35-52); HEMOGLOBIN 13.2 g/dL (11.5-16.0); LYMPHOCYTES % (AUTO) 16 % (12-44); MEAN CORPUSCULAR HEMOGLOBIN 30 pg (25-34); MEAN CORPUSCULAR HGB CONC 34 g/dL (32-36); MEAN CORPUSCULAR VOLUME 88 fL (80-99); MEAN PLATELET VOLUME 9.7 fL (9.0-12.2); MONOCYTES # (AUTO) 0.5 10^3/uL (0.0-1.0); MONOCYTES % (AUTO) 4 % (0-12); NEUTROPHILS # (AUTO) 9.7 10^3/uL (1.8-7.8); NEUTROPHILS % (AUTO) 79 % (42-75); PLATELET COUNT 210 10^3/uL (130-400); WHITE BLOOD COUNT 12.3 10^3/uL (4.3-11.0)
[2021-02-15 13:52] LABS: ALBUMIN 4.1 GM/DL (3.2-4.5); POTASSIUM 3.8 MMOL/L (3.6-5.0)
[2021-02-15 13:53] LABS: CALCIUM 10.2 MG/DL (8.5-10.1)
[2021-02-15 13:55] LABS: TOTAL PROTEIN 6.8 GM/DL (6.4-8.2)
[2021-02-15 13:56] LABS: BILIRUBIN,TOTAL 0.7 MG/DL (0.1-1.0)
[2021-02-15 13:58] LABS: CREATININE SERUM 0.74 MG/DL (0.60-1.30)
--- NOTE | 2021-02-15 14:36 | Diagnostic Imaging Report ---
INDICATION: Cough. TIME OF EXAM: 2:13 PM Correlation is made with prior chest 08/31/2020. FINDINGS: The heart size is normal. The pulmonary vascularity is unremarkable. The lungs are clear. No infiltrate, effusion or pneumothorax is detected. IMPRESSION: No acute cardiopulmonary process is detected. Dictated by: Dictated on workstation # [id number]
[2021-02-15] MEDS ORDERED: RT-ALBUTEROL/IPRATROPIUM 3 ML (DUONEB) VIAL INH ONE (14:45)
[2021-02-15] MEDS ORDERED: methylPREDNISolone 125 MG (Solu-MEDROL) VIAL IVP ONE (14:45)
[2021-02-15] MEDS ORDERED: RT-ALBUTEROL SULF 2.5 MG/3 ML PRE-MIX VIAL INH ONE (14:45)
[2021-02-15 16:09] VITALS: BP 109/68
== END 2021-02-15 16:09 | disposition home or self-care (01) ==
LOC: EDUNIT# 13:10 → ER 13:11
DX: J44.1 Chronic obstructive pulmonary disease with (acute) exacerbation (principal); I10 Essential (primary) hypertension; E78.00 Pure hypercholesterolemia, unspecified; K21.9 Gastro-esophageal reflux disease without esophagitis; F41.9 Anxiety disorder, unspecified; F17.210 Nicotine dependence, cigarettes, uncomplicated; Z20.822 Contact with and (suspected) exposure to COVID-19; Z79.899 Other long term (current) drug therapy; Z79.52 Long term (current) use of systemic steroids
CPT/HCPCS: 36415; 71045; 80053; 82805; 83880; 84145; 85025; 87636; 94640; 94644

== ENCOUNTER 2021-07-27 10:26 | Inpatient (IN) | payer MEDICARE, MEDICAID ==
[~2021-07-27] VITALS: Ht 170.2 cm; Wt 125.2 kg
[~2021-07-27 10:26] MED LIST changes: +MONT-40 PO; -MONT10TA32 PO
[2021-07-27] MEDS ORDERED: RT-ALBUTEROL SULF 2.5 MG/3 ML PRE-MIX VIAL INH STA (10:40)
[2021-07-27] MEDS ORDERED: LACTATED RINGERS 1,000 ML IV ONE (10:45)
[2021-07-27] MEDS ORDERED: BENZONATATE 100 MG (TESSALON) CAPSULE PO ONE (10:45)
[2021-07-27] MEDS ORDERED: methylPREDNISolone 125 MG (Solu-MEDROL) VIAL IVP ONE (10:45)
[2021-07-27] MEDS ORDERED: RT-ALBUTEROL/IPRATROPIUM 3 ML (DUONEB) VIAL INH ONE (10:45)
[2021-07-27 10:52] LABS: EOSINOPHILS % (AUTO) 0 % (0-10); HEMOGLOBIN 12.8 g/dL (11.5-16.0)
[2021-07-27 10:54] LABS: BASOPHILS % (AUTO) 0 % (0-10); HEMATOCRIT 37 % (35-52); LYMPHOCYTES # (AUTO) 1.3 10^3/uL (1.0-4.0); LYMPHOCYTES % (AUTO) 17 % (12-44); MEAN CORPUSCULAR HEMOGLOBIN 30 pg (25-34); MEAN CORPUSCULAR HGB CONC 35 g/dL (32-36); MEAN CORPUSCULAR VOLUME 85 fL (80-99); MEAN PLATELET VOLUME 9.4 fL (9.0-12.2); MONOCYTES # (AUTO) 0.8 10^3/uL (0.0-1.0); MONOCYTES % (AUTO) 11 % (0-12); NEUTROPHILS # (AUTO) 5.6 10^3/uL (1.8-7.8); NEUTROPHILS % (AUTO) 72 % (42-75); PLATELET COUNT 120 10^3/uL (130-400); WHITE BLOOD COUNT 7.8 10^3/uL (4.3-11.0)
[2021-07-27] MEDS ORDERED: ONDANSETRON 4 MG/2 ML (SDV) Z0FRAN IVP ONE (11:00)
[2021-07-27 11:01] LABS: BILIRUBIN,URINE NEGATIVE (NEGATIVE); CLARITY,URINE SL CLOUDY; COLOR,URINE YELLOW; GLUCOSE, URINE (UA) NEGATIVE (NEGATIVE); KETONES,URINE NEGATIVE (NEGATIVE); LEUKOCYTE ESTERASE ,URINE 1+ (NEGATIVE); NITRITE,URINE NEGATIVE (NEGATIVE); PROTEIN,URINE TRACE (NEGATIVE)
[2021-07-27 11:05] LABS: ALBUMIN 3.7 GM/DL (3.2-4.5); INR 0.9 (0.8-1.4); PROTHROMBIN TIME PATIENT 12.7 SEC (12.2-14.7)
[2021-07-27 11:06] LABS: POTASSIUM 2.9 MMOL/L (3.6-5.0)
[2021-07-27 11:07] LABS: CALCIUM 9.2 MG/DL (8.5-10.1)
[2021-07-27 11:08] LABS: BACTERIA,URINE LARGE /HPF; RBC,URINE 0-2 /HPF
[2021-07-27 11:08] LABS: TOTAL PROTEIN 5.6 GM/DL (6.4-8.2)
[2021-07-27 11:10] LABS: BILIRUBIN,TOTAL 0.9 MG/DL (0.1-1.0)
[2021-07-27 11:12] LABS: CREATININE SERUM 0.8 MG/DL (0.60-1.30)
--- NOTE | 2021-07-27 11:14 | Diagnostic Imaging Report ---
INDICATION: Fever. Time of Exam: 11:08 AM Correlation is made with prior chest from 02/15/2021. Finding: The heart size is normal. The pulmonary vascularity is unremarkable. The lungs are clear. No infiltrate, effusion or pneumothorax is detected. Impression: No acute cardiopulmonary process is detected. Dictated by: Dictated on workstation # [id number]
[2021-07-27] MEDS ORDERED: OSELTAMIVIR 75 MG (TAMIFLU) CAPSULE PO ONE (11:30)
[2021-07-27] MEDS ORDERED: POTASSIUM CL 10MEQ/50ML IVPB 50 ML IV ONE (11:30)
[2021-07-27] MEDS ORDERED: NS IV 1000 ML 1,000 ML IV SCH (11:30)
[2021-07-27] MEDS ORDERED: ACETAMINOPHEN 500 MG TAB (TYLENOL) PO ONE (11:45)
--- NOTE | 2021-07-27 11:49 | ED General ---
General Chief Complaint: Respiratory Problems Stated Complaint: SOB Nursing Triage Note: PT BROGUHT IN BY [facility] FROM HOME WITH COMPLAINT OF SOA. PT WENT TO [facility] A FEW DAYS AGO FOR SOA AND TESTED NEGATIVE FOR COVID. HX OF COPD. FEVER FOR THE LAST FEW DAYS. Source of Information: Patient, EMS, Old Records Exam Limitations: No Limitations History of Present Illness Date Seen by Provider: Jul 27, 2021 Time Seen by Provider: 10:27 Initial Comments This 60-year-old woman presents to the emergency room via EMS with primary complaint of shortness of breath. She began feeling ill on July 23 or . She saw the [facility] clinic at the end of the week and tested negative for influenza and COVID-19. She developed high fever yesterday and has a fever of 103.1 per EMS. She has had a persistent dry cough, watery eyes, runny nose, nausea, vomiting, and diarrhea. She feels very weak and has not been able to walk well. She has history of COPD and normally runs oxygen at 2 L/min by nasal cannula at home. On arrival she is requiring 3 L. Despite receiving a nebulizer treatment by EMS, she is still diffusely wheezy. She complains of constant incontinence with her cough. Her primary care provider is Amador Smith at the [facility] clinic. She also sees a circus hand in [place]. Allergies and Home Medications Allergies Coded Allergies: aspirin (Unverified Allergy, Unknown, 07/01/15) Penicillins (Unverified Adverse Reaction, Mild, N/V, 07/02/15) Patient Home Medication List Home Medication List Reviewed: Yes Albuterol Sulfate (Proair Hfa) 1 Puff Puff, 2 PUFF IH Q4H PRN for SHORTNESS OF BREATH, (Reported) Entered as Reported by: MARYANN GARCIA on 08/31/20 0627 Atorvastatin Calcium (Atorvastatin Calcium) 20 Mg Tablet, 20 MG PO HS, (Reported) Entered as Reported by: KHRIS GONZALES on 06/07/19 151 Benzonatate (Tessalon Perles) 100 Mg Capsule, 100 MG PO TID PRN for COUGH, (Reported) Entered as Reported by: MARYANN GARCIA on 08/31/20 06 Cefdinir (Cefdinir) 300 Mg Capsule, 300 MG PO BID Prescribed by: GERARDO IBARRA on 09/02/20 1142 Diphenhydramine HCl (Benadryl Allergy) 25 Mg Tablet, 25 MG PO HS, (Reported) Entered as Reported by: PELON VENTURA on 08/31/20644 Fluticasone Propionate (Flonase Allergy Relief) 9.9 Ml [place].susp, 2 SPRAY NS BID, (Reported) Entered as Reported by: PELON VENTURA on 08/31/20644 Ipratropium [place] (Ipratropium [place]) 30 Ml [place], 30 ML NS, (Reported) Entered as Reported by: MARYANN GARCIA on 08/31/20626 Lamotrigine (Lamotrigine) 200 Mg Tablet, 200 MG PO HS, (Reported) Entered as Reported by: MARYANN GARCIA on 08/31/20622 Lisinopril (Lisinopril) 10 Mg Tablet, 10 MG PO DAILY, (Reported) Entered as Reported by: KHRIS GONZALES on 06/07/19 1513 Lurasidone HCl (Latuda) 80 Mg Tablet, 80 MG PO DAILY, (Reported) Entered as Reported by: MARYANN GARCIA on 08/31/20622 Montelukast Sodium (Montelukast Sodium) 10 Mg Tablet, 10 MG PO DAILY, (Reported) Entered as Reported by: MARYANN GARCIA on 08/31/20622 Oxybutynin Chloride (Oxybutynin Chloride) 5 Mg Tablet, 5 MG PO BID, (Reported) Entered as Reported by: MARYANN GARCIA on 08/31/20622 Pantoprazole Sodium (Pantoprazole Sodium) 40 Mg Tablet.dr, 40 MG PO DAILY, (Reported) Entered as Reported by: MARYANN GARCIA on 08/31/20626 Prednisone (Prednisone) 10 Mg Tab, (Reported) Entered as Reported by: MARYANN GARCIA on 08/31/20622 Prednisone (Prednisone) 10 Mg Tab.ds.pk, 10 MG PO DAILY Prescribed by: GERARDO IBARRA on 09/02/20 1142 Promethazine HCl/Codeine (Prometh-Codein 6.25-10 mg/5 ml) 5 Ml Syrup, 5 ML PO Q4H Prescribed by: GERARDO IBARRA on 09/02/20 1148 Trazodone HCl (Trazodone HCl) 150 Mg Tablet, 150 MG PO HS, (Reported) Entered as Reported by: MARYANN GARCIA on 08/31/20 0623 Review of Systems Review of Systems Constitutional: see HPI EENTM: see HPI Respiratory: see HPI Cardiovascular: no symptoms reported Gastrointestinal: see HPI Genitourinary: see HPI : No Musculoskeletal: see HPI Skin: no symptoms reported Psychiatric/Neurological: Headache Hematologic/Lymphatic: No Symptoms Reported Immunological/Allergic: no symptoms reported Past Qvywdlu-Hvdkka-Detuzv Hx Patient Social History Tobacco Use?: Yes Tobacco type used: Cigarettes Smoking Status: Current Everyday Smoker Use of E-Cig and/or Vaping dev: No Substance use?: No Alcohol Use?: No Pt feels they are or have been: No Immunizations Up To Date Influenza Vaccine Up-to-Date: No; Not Current First/Initial COVID19 Vaccinat: JULY 04, 2020 Second COVID19 Vaccination Win: AUGUST 03, 2020 Third COVID19 Vaccination Date: JULY 04, 2020 Seasonal Allergies Seasonal Allergies: No Past Medical History Surgeries: Yes (JESENIA 1979; BILATERAL CATARACT SURGERY) Eye Surgery, Gallbladder, Tonsillectomy Respiratory: Yes (O2 AT HS 3L/NC AND PRN) COPD, Emphysema Currently Using CPAP: No Cardiac: Yes High Cholesterol, Hypertension Neurological: No Reproductive Disorders: No Sexually Transmitted Disease: No HIV/AIDS: No Genitourinary: No Gastrointestinal: Yes Gastroesophageal Reflux, Gall Bladder Disease Musculoskeletal: No Endocrine: No HEENT: No Cancer: No Psychosocial: Yes Anxiety Integumentary: No Blood Disorders: No Family Medical History No Pertinent Family Hx Physical Exam-Suspected Sepsis Physical Exam Vital Signs Vital Signs - First Documented 07/27/21 10:30 Temp 38.8 Pulse 121 Resp 29 B/P (MAP) 99/68 (78) Pulse Ox 92 O2 Delivery Nasal Cannula O2 Flow Rate 4.00 Capillary Refill : Less Than 3 Seconds Blood Pressure Mean: 78 Height, Weight, BMI Height: 5'7.00" Weight: 291lbs. 0.0oz. [id number]; 43.00 BMI Method:Stated General Appearance: WD/WN, Mild Distress (Uncomfortable from coughing, headache, nausea, etc.) HEENT: PERRL/EOMI, Other (Oropharynx dry) Neck: Normal Inspection; No JVD Respiratory: No Accessory Muscle Use, No Respiratory Distress; No Crackles; Wheezing (Diffuse) Cardiovascular: No Edema, No Murmur, Tachycardia Gastrointestinal: Normal Bowel Sounds, Non Tender, Soft Extremity: Normal Inspection, Non Tender, No Pedal Edema Neurologic/Psychiatric: Alert, Oriented x3, No Motor/Sensory Deficits Skin: normal color, warm/dry Focused Exam Lactate Level 07/27/21 10:42: Lactic Acid Level 1.21 Lactic Acid Level Laboratory Tests Test 07/27/21 10:42 Lactic Acid Level 1.21 MMOL/L (0.50-2.00) Progress/Results/Core Measures Suspected Sepsis SIRS Temperature: Pulse: 121 Respiratory Rate: 29 Laboratory Tests 07/27/21 10:42: White Blood Count 7.8 Blood Pressure 99 /68 Mean: 78 07/27/21 10:42: Lactic Acid Level 1.21 Laboratory Tests 07/27/21 10:42: Creatinine 0.80, INR Comment 0.9, Platelet Count 120L, Total Bilirubin 0.9 Results/Orders Lab Results Laboratory Tests Test 07/27/21 10:35 07/27/21 10:42 07/27/21 10:54 Range/Units Influenza Type A (RT-PCR) Detected H Not Detecte Influenza Type B (RT-PCR) Not Detected Not Detecte SARS-CoV-2 RNA (RT-PCR) Not Detected Not Detecte White Blood Count 7.8 4.3-11.0 10^3/uL Red Blood Count 4.34 3.80-5.11 10^6/uL Hemoglobin 12.8 11.5-16.0 g/dL Hematocrit 37 35-52 % Mean Corpuscular Volume 85 80-99 fL Mean Corpuscular Hemoglobin 30 25-34 pg Mean Corpuscular Hemoglobin Concent 35 32-36 g/dL Red Cell Distribution Width 12.6 10.0-14.5 % Platelet Count 120 L 130-400 10^3/uL Mean Platelet Volume 9.4 9.0-12.2 fL Immature Granulocyte % (Auto) 0 % Neutrophils (%) (Auto) 72 42-75 % Lymphocytes (%) (Auto) 17 12-44 % Monocytes (%) (Auto) 11 0-12 % Eosinophils (%) (Auto) 0 0-10 % Basophils (%) (Auto) 0 0-10 % Neutrophils # (Auto) 5.6 1.8-7.8 10^3/uL Lymphocytes # (Auto) 1.3 1.0-4.0 10^3/uL Monocytes # (Auto) 0.8 0.0-1.0 10^3/uL Eosinophils # (Auto) 0.0 0.0-0.3 10^3/uL Basophils # (Auto) 0.0 0.0-0.1 10^3/uL Immature Granulocyte # (Auto) 0.0 0.0-0.1 10^3/uL Percent Immature Platelet Fraction 3.1 0.0-7.6 % Prothrombin Time 12.7 12.2-14.7 SEC INR Comment 0.9 0.8-1.4 Activated Partial Thromboplast Time 30 24-35 SEC Sodium Level 130 L 135-145 MMOL/L Potassium Level 2.9 L 3.6-5.0 MMOL/L Chloride Level 93 L 98-107 MMOL/L Carbon Dioxide Level 24 21-32 MMOL/L Anion Gap 13 5-14 MMOL/L Blood Urea Nitrogen 4 L 7-18 MG/DL Creatinine 0.80 0.60-1.30 MG/DL Estimat Glomerular Filtration Rate 84 BUN/Creatinine Ratio 5 Glucose Level 125 H 70-105 MG/DL Lactic Acid Level 1.21 0.50-2.00 MMOL/L Calcium Level 9.2 8.5-10.1 MG/DL Corrected Calcium 9.4 8.5-10.1 MG/DL Total Bilirubin 0.9 0.1-1.0 MG/DL Aspartate Amino Transf (AST/SGOT) 17 5-34 U/L Alanine Aminotransferase (ALT/SGPT) 16 0-55 U/L Alkaline Phosphatase 80 40-136 U/L C-Reactive Protein High Sensitivity 9.92 H 0.00-0.50 MG/DL Total Protein 5.6 L 6.4-8.2 GM/DL Albumin 3.7 3.2-4.5 GM/DL Procalcitonin 0.09 <0.10 NG/ML Urine Color YELLOW Urine Clarity SL CLOUDY Urine pH 6.0 5-9 Urine Specific [place] 1.015 L 1.016-1.022 Urine Protein TRACE H NEGATIVE Urine Glucose (UA) NEGATIVE NEGATIVE Urine Ketones NEGATIVE NEGATIVE Urine Nitrite NEGATIVE NEGATIVE Urine Bilirubin NEGATIVE NEGATIVE Urine Urobilinogen 1.0 < = 1.0 MG/DL Urine Leukocyte Esterase 1+ H NEGATIVE Urine RBC (Auto) TRACE-I H NEGATIVE Urine RBC 0-2 /HPF Urine WBC 2-5 /HPF Urine Crystals NONE /LPF Urine Bacteria LARGE H /HPF Urine Casts NONE /LPF Urine Mucus NEGATIVE /LPF Urine Culture Indicated CULTURE PENDING My Orders Orders - BARBARA DAILY MD Cbc With Automated Diff (07/27/21 10:37) Comprehensive Metabolic Panel (07/27/21 10:37) Blood Culture (07/27/21 10:37) Sputum Culture (07/27/21 10:37) Urinalysis (07/27/21 10:37) Urine Culture (07/27/21 10:37) Protime With Inr (07/27/21 10:37) Partial Thromboplastin Time (07/27/21 10:37) Chest 1 View, Ap/Pa Only (07/27/21 10:37) Ed Iv/Invasive Line Start (07/27/21 10:37) Ed Iv/Invasive Line Start (07/27/21 10:37) Vital Signs Adult Sepsis Patie Q15M (07/27/21 10:37) O2 (07/27/21 10:37) Remove Rings In Anticipation O (07/27/21 10:37) Lactic Acid Analyzer (07/27/21 10:37) Lactated Ringers (Lr 1000 Ml Iv Solution (07/27/21 10:45) Benzonatate Capsule (Tessalon Perles) (07/27/21 10:45) Methylprednisolone Sod Succ (Solu-Medrol (07/27/21 10:45) Hs C Reactive Protein (07/27/21 10:40) Procalcitonin (Pct) (07/27/21 10:40) Albuterol Pre-Mix Nebs (Rt) (Proventil (07/27/21 10:40) Albuterol/Ipra Inhalation Soln (Duoneb I (07/27/21 10:45) Svn Small Volume Nebulizer (07/27/21 10:40) Svn Small Volume Nebulizer (07/27/21 10:40) Covid 19 Inhouse Test (07/27/21 10:42) Influenza A And B By Pcr (07/27/21 10:42) Ondansetron Injection (Zofran Injectio (07/27/21 11:00) Hinkle Cath (07/27/21 10:46) Potassium Cl 10meq/50ml Ivpb (Kcl 10 Meq (07/27/21 11:30) Ns Iv 1000 Ml (Sodium Chloride 0.9%) (07/27/21 11:30) Oseltamivir 75 Mg Capsule (Tamiflu 75 (07/27/21 11:30) Acetaminophen Tablet (Tylenol Tablet) (07/27/21 11:45) Medications Given in ED Current Medications Medications Dose Ordered Sig/Brian Route Start Time Stop Time Status Last Admin Dose Admin Albuterol/ Ipratropium 3 ml ONCE ONCE INH 07/27/21 10:45 07/27/21 10:46 DC 07/27/21 10:57 3 ML Benzonatate 200 mg ONCE ONCE PO 07/27/21 10:45 07/27/21 10:46 DC 07/27/21 10:49 200 MG Lactated Ringer's 1,000 ml @ 0 mls/hr Q0M ONCE IV 07/27/21 10:45 07/27/21 10:46 DC 07/27/21 10:49 0 MLS/HR Methylprednisolone Sodium Succinate 125 mg ONCE ONCE IVP 07/27/21 10:45 07/27/21 10:46 DC 07/27/21 10:49 125 MG Ondansetron HCl 4 mg ONCE ONCE IVP 07/27/21 11:00 07/27/21 11:01 DC 07/27/21 10:51 4 MG Vital Signs/I&O 07/27/21 10:30 Temp 38.8 Pulse 121 Resp 29 B/P (MAP) 99/68 (78) Pulse Ox 92 O2 Delivery Nasal Cannula O2 Flow Rate 4.00 Capillary Refill : Less Than 3 Seconds Blood Pressure Mean: 78 Progress Note : Time: 11:48 Progress Note Blood pressures were on the low end of normotensive and heart rate was elevated. She received a liter of LR. This was followed by a liter of normal saline with 10 mEq of IV potassium chloride to treat the hypokalemia. An hour-long nebulizer treatment was administered along with Solu-Medrol for treatment of COPD. Tessalon Perles were given for cough. Influenza screening was positive for influenza A. Tamiflu was administered. Tylenol was given for fever. I discussed CODE STATUS with the patient and she elects full code. She is agreeable to admission for treatment of her influenza, weakness, hypokalemia, and COPD exacerbation. Diagnostic Imaging Diagonstic Imaging: Xray Plain Films/CT/US/NM/MRI: chest Comments NAME: IVETT FATIMA MED REC#: [id number] PT STATUS: REG ER : 1960 PHYSICIAN: BARBARA DAILY MD ADMIT DATE: 07/27/21/ER Draft Date of Exam:07/27/21 CHEST 1 VIEW, AP/PA ONLY INDICATION: Fever. Time of Exam: 11:08 AM Correlation is made with prior chest from 02/15/2021. Finding: The heart size is normal. The pulmonary vascularity is unremarkable. The lungs are clear. No infiltrate, effusion or pneumothorax is detected. Impression: No acute cardiopulmonary process is detected. Dictated on workstation # [id number] Dict: 07/27/21 1112 Trans: 07/27/21 1114 [facility] [id number] Interpreted by: JAISON ORTIZ MD Departure Communication (Admissions) Time/Spoke to Admitting Phy: 11:35 Dr. Craig Impression Primary Impression: Influenza A Additional Impressions: COPD exacerbation Hypokalemia Nausea vomiting and diarrhea Generalized weakness Disposition: ADMITTED INPATIENT Condition: Improved Admissions Decision to Admit Reason: Admit from ER (General) Decision to Admit/Date: Jul 27, 2021 Time/Decision to Admit Time: 11:35 Departure-Patient Inst. Referrals: [facility] (PCP) Primary Care Physician KATERINA SMITH (Family) Primary Care Physician BARBARA DAILY MD Jul 27, 2021 11:49
[2021-07-27 13:33] VITALS: BP 110/70
[2021-07-27] MEDS ORDERED: ACETAMINOPHEN 500 MG TAB (TYLENOL) PO PRN (14:15)
[2021-07-27] MEDS ORDERED: BENZONATATE 100 MG (TESSALON) CAPSULE PO PRN (14:15)
[2021-07-27] MEDS ORDERED: CATHETER FLUSH 10 ML SYR IVP PRN (14:15)
[2021-07-27] MEDS ORDERED: ONDANSETRON 4 MG/2 ML (SDV) Z0FRAN IV PRN (14:15)
[2021-07-27 15:36] VITALS: BP 102/52
[2021-07-27] MEDS: KCL 20 MEQ TAB (K-DUR) PO SCH ×2 (16:02→17:38)
[2021-07-27] MEDS: NS IV 1000 ML 1,000 ML IV SCH (16:02)
[2021-07-27] MEDS: ACETAMINOPHEN 500 MG TAB (TYLENOL) PO PRN (16:03)
[2021-07-27] MEDS: guaiFENesin/DM (ROBITUSSIN DM) 10 ML UDC PO PRN ×2 (16:03→22:24)
[2021-07-27] MEDS ORDERED: LURA40TA2 PO (17:04)
[2021-07-27] MEDS: methylPREDNISolone 40 MG/ML (Solu-MEDROL) VIAL IV SCH (17:38)
[2021-07-27 18:36] VITALS: BP 99/68
[2021-07-27 19:12] VITALS: BP_SYST 100; BP_SYST 86; BP_DIAS 50; BP_DIAS 51
[2021-07-27] MEDS: OSELTAMIVIR 75 MG (TAMIFLU) CAPSULE PO SCH (20:00)
[2021-07-27] MEDS ORDERED: RT-ALBUTEROL/IPRATROPIUM 3 ML (DUONEB) VIAL ONE (20:06)
[2021-07-27] MEDS: RT-ALBUTEROL/IPRATROPIUM 3 ML (DUONEB) VIAL INH PRN (20:14)
[2021-07-27] MEDS: RT-ALBUTEROL/IPRATROPIUM 3 ML (DUONEB) VIAL INH SCH (22:12)
[2021-07-28] VITALS (7 sets, daily range): BP systolic 95–121; BP diastolic 48–79
[2021-07-28] MEDS: methylPREDNISolone 40 MG/ML (Solu-MEDROL) VIAL IV SCH ×4 (00:32→18:25)
[2021-07-28] MEDS: NS IV 1000 ML 1,000 ML IV SCH ×3 (00:32→21:27)
[2021-07-28] MEDS: ACETAMINOPHEN 500 MG TAB (TYLENOL) PO PRN (00:35)
[2021-07-28] MEDS: RT-ALBUTEROL/IPRATROPIUM 3 ML (DUONEB) VIAL INH SCH ×6 (04:05→22:31)
[2021-07-28 05:55] LABS: BASOPHILS % (AUTO) 0 % (0-10); EOSINOPHILS % (AUTO) 0 % (0-10); HEMOGLOBIN 11.9 g/dL (11.5-16.0); PLATELET COUNT 122 10^3/uL (130-400)
[2021-07-28 05:57] LABS: HEMATOCRIT 34 % (35-52); LYMPHOCYTES # (AUTO) 1.5 10^3/uL (1.0-4.0); LYMPHOCYTES % (AUTO) 14 % (12-44); MEAN CORPUSCULAR HEMOGLOBIN 29 pg (25-34); MEAN CORPUSCULAR HGB CONC 35 g/dL (32-36); MEAN CORPUSCULAR VOLUME 85 fL (80-99); MEAN PLATELET VOLUME 9.8 fL (9.0-12.2); MONOCYTES # (AUTO) 0.5 10^3/uL (0.0-1.0); MONOCYTES % (AUTO) 4 % (0-12); NEUTROPHILS # (AUTO) 8.8 10^3/uL (1.8-7.8); NEUTROPHILS % (AUTO) 81 % (42-75); WHITE BLOOD COUNT 10.8 10^3/uL (4.3-11.0)
[2021-07-28 06:01] LABS: POTASSIUM 3.6 MMOL/L (3.6-5.0)
[2021-07-28] MEDS: guaiFENesin/DM (ROBITUSSIN DM) 10 ML UDC PO PRN (06:01)
[2021-07-28 06:02] LABS: CALCIUM 9.3 MG/DL (8.5-10.1)
[2021-07-28 06:06] LABS: CREATININE SERUM 0.72 MG/DL (0.60-1.30)
[2021-07-28] MEDS: OSELTAMIVIR 75 MG (TAMIFLU) CAPSULE PO SCH ×2 (08:20→21:27)
[2021-07-28] MEDS: PANTOPRAZOLE 40 MG (PROTONIX) TAB PO SCH (08:20)
[2021-07-28] MEDS ORDERED: ATOR40TA70 PO (10:31)
[2021-07-28] MEDS ORDERED: LATUDA PO (10:33)
[2021-07-28] MEDS ORDERED: ALBU2.5V4 INH (10:37)
[2021-07-28] MEDS ORDERED: BUDE10.7 PO (10:38)
[2021-07-28] MEDS ORDERED: TRAZ-227 PO (10:40)
[2021-07-28] MEDS ORDERED: DIPH25CA79 PO (10:47)
[2021-07-28] MEDS ORDERED: ACET-2267 PO (10:48)
--- NOTE | 2021-07-28 12:03 | History & Physical ---
HPI History of Present Illness: 60 yo F with COPD that presented with increasing shortness of breath and fever of 103. Patient states that she started to feel sick on 07/23. States that there were other people who were sick in her household but everyone tested neg for flu and covid including the patient last week. She then spiked a fever over the wee kend and stated that she was extremely weak and unable to stand up out of her chair. She see a pedal assembler in [place] and states that she has a baseline oxygen requirement of 2L NC at night only. This AM she states that she is feeling some better then yesterday but still having weakness and shortness of breath with minimal activities. Source: patient, other (daughter) Exam Limitations: no limitations Date seen by provider: Jul 28, 2021 Time Seen by Provider: 10:35 Attending Physician Fermin Craig MD PCP [place] Consult Date of Admission Jul 27, 2021 at 11:35 Home Medications Home Medications Reviewed patient Home Medication Reconciliation performed by pharmacy medication reconciliations quick technician and/or nursing. Patients Allergies have been reviewed. Allergies Coded Allergies: aspirin (Unverified Allergy, Unknown, 07/01/15) Penicillins (Unverified Adverse Reaction, Mild, N/V, 07/02/15) VYH-Ifrnkm-Boaqhy Hx Patient Social History Drug of Choice: DENIES Smoking Status: Current Everyday Smoker Former smoker/When Quit: Jun 07, 2012 2nd Hand Smoke Exposure: Yes Recent Hopitalizations: No Alcohol Use?: No Substance type: Nicotine Tobacco type used: Cigarettes Have you traveled recently?: No Immunizations Up To Date Influenza Vaccine Up-to-Date: No; Not Current First/Initial COVID19 Vaccinat: JULY 04, 2020 Second COVID19 Vaccination Win: AUGUST 03, 2020 Third COVID19 Vaccination Date: JULY 04, 2020 Past Medical History COPD baseline oxygen 2L NC qhs only Depression with h/o SI HTN Obesity BMI 43 Family Medical History Significant Family History: No Pertinent Family Hx Review of Systems (CHC) Constitutional: chills, fever, malaise EENTM: nose congestion; No mouth pain, No throat pain Respiratory: cough, dyspnea on exertion; No orthopnea; short of breath Cardiovascular: no symptoms reported; No chest pain, No edema, No palpitations Gastrointestinal: No abdominal pain, No constipation; diarrhea, loss of appetite; No nausea, No vomiting Genitourinary: no symptoms reported; No dysuria, No frequency : No Musculoskeletal: joint pain (baseline) Skin: no symptoms reported; No lesions, No rash Psychiatric/Neurological: Depressed, Weakness Reviewed Test Results Reviewed Test Results Lab Laboratory Tests Test 07/28/21 05:48 Range/Units White Blood Count 10.8 4.3-11.0 10^3/uL Red Blood Count 4.06 3.80-5.11 10^6/uL Hemoglobin 11.9 11.5-16.0 g/dL Hematocrit 34 L 35-52 % Mean Corpuscular Volume 85 80-99 fL Mean Corpuscular Hemoglobin 29 25-34 pg Mean Corpuscular Hemoglobin Concent 35 32-36 g/dL Red Cell Distribution Width 12.6 10.0-14.5 % Platelet Count 122 L 130-400 10^3/uL Mean Platelet Volume 9.8 9.0-12.2 fL Immature Granulocyte % (Auto) 1 % Neutrophils (%) (Auto) 81 H 42-75 % Lymphocytes (%) (Auto) 14 12-44 % Monocytes (%) (Auto) 4 0-12 % Eosinophils (%) (Auto) 0 0-10 % Basophils (%) (Auto) 0 0-10 % Neutrophils # (Auto) 8.8 H 1.8-7.8 10^3/uL Lymphocytes # (Auto) 1.5 1.0-4.0 10^3/uL Monocytes # (Auto) 0.5 0.0-1.0 10^3/uL Eosinophils # (Auto) 0.0 0.0-0.3 10^3/uL Basophils # (Auto) 0.0 0.0-0.1 10^3/uL Immature Granulocyte # (Auto) 0.1 0.0-0.1 10^3/uL Percent Immature Platelet Fraction 2.4 0.0-7.6 % Sodium Level 140 135-145 MMOL/L Potassium Level 3.6 3.6-5.0 MMOL/L Chloride Level 104 98-107 MMOL/L Carbon Dioxide Level 23 21-32 MMOL/L Anion Gap 13 5-14 MMOL/L Blood Urea Nitrogen 10 7-18 MG/DL Creatinine 0.72 0.60-1.30 MG/DL Estimat Glomerular Filtration Rate 95 BUN/Creatinine Ratio 14 Glucose Level 152 H 70-105 MG/DL Calcium Level 9.3 8.5-10.1 MG/DL Physical Exam-(CHC) Physical Exam Vital Signs VS - Last 72 Hours, by Label 07/27/21 07/27/21 07/27/21 07/27/21 10:30 10:30 12:35 13:00 Temp 38.8 36.5 Pulse 121 106 Resp 29 15 B/P (MAP) 99/68 (78) 100/59 Pulse Ox 92 91 O2 Delivery Nasal Cannula Nasal Cannula Room Air O2 Flow Rate 4.00 4.00 07/27/21 07/27/21 07/27/21 07/27/21 13:33 14:24 15:36 18:36 Temp 36.5 36.6 38.8 Pulse 102 91 121 Resp 24 20 B/P (MAP) 110/70 (83) 102/52 (69) Pulse Ox 89 92 97 92 O2 Delivery Nasal Cannula Nasal Cannula Nasal Cannula O2 Flow Rate 4.00 4.00 4.00 FiO2 32 07/27/21 07/27/21 07/27/21 07/27/21 19:12 20:00 20:14 22:12 Temp 36.6 Pulse 87 Resp 20 B/P (MAP) 100/50 (67) Pulse Ox 92 96 96 O2 Delivery Nasal Cannula Nasal Cannula Nasal Cannula Nasal Cannula O2 Flow Rate 4.00 4.00 4.00 4.00 07/28/21 07/28/21 07/28/21 07/28/21 00:45 04:56 05:08 07:30 Temp 36.5 36.3 36.5 Pulse 82 76 80 Resp 19 17 18 B/P (MAP) 95/48 (64) 110/56 (74) 121/79 (93) Pulse Ox 90 91 95 93 O2 Delivery Nasal Cannula Nasal Cannula Nasal Cannula Nasal Cannula O2 Flow Rate 4.00 4.00 4.00 4.00 07/28/21 07/28/21 07/28/21 07/28/21 07:50 07:58 08:00 11:37 Temp 36.5 35.9 Pulse 80 82 Resp 18 18 B/P (MAP) 121/79 (93) 101/57 (72) Pulse Ox 92 93 94 O2 Delivery Nasal Cannula Nasal Cannula Nasal Cannula Nasal Cannula O2 Flow Rate 4.00 4.00 4.00 4.00 Capillary Refill : Less Than 3 Seconds General Appearance: mild distress (shortness of breath with minimal activity) HEENT: PERRL/EOMI Neck: non-tender Respiratory: chest non-tender, lungs clear, no respiratory distress, no accessory muscle use; No crackles; wheezing, expiration Cardiovascular: normal peripheral pulses, regular rate, rhythm, no edema, no murmur Gastrointestinal: normal bowel sounds, non tender, soft Back: no CVA tenderness, no vertebral tenderness Extremities: normal range of motion, non-tender, normal inspection, no pedal edema, no calf tenderness, normal capillary refill Neurologic/Psychiatric: dining car conductor II-XII nml as tested, no motor/sensory deficits, alert, normal mood/affect, oriented x 3 Skin: normal color, warm/dry Lymphatic: no adenopathy Assessment/Plan Assessment/Plan Admission Status: Inpatient Order (span 2 midnights) Reason for Inpatient Admission: Patient has a 4 fold increase in oxygen requirement and is unable to perform ADLs by self, will likely require several days to wean oxygen and work on strength and endurance (1) Acute and chronic respiratory failure Status: Acute Assessment & Plan: - Patient requiring 5L NC, will titrate as tolerated, MAT protocol, Steroids, IS, increase ambulation (2) COPD exacerbation Status: Acute (3) Influenza A Status: Acute Assessment & Plan: - Continue Tamiflu (4) HTN (hypertension) Status: Chronic Assessment & Plan: - Holding blood pressure medications at this time due to normotensive pressures Qualifiers: Qualified Codes: I10 - Essential (primary) hypertension (5) Generalized weakness Status: Acute Assessment & Plan: - Will order PT (6) Depression Status: Chronic Assessment & Plan: - Patient states that she had SI about 1 month ago, she denies having such ideas since then and is not currently suicidal at this time, Will continue home psych medications Qualifiers: Qualified Codes: F33.1 - Major depressive disorder, recurrent, moderate (7) BMI 45.0-49.9, adult Status: Chronic LIA GRAYSON MD Jul 28, 2021 12:03
[2021-07-28] MEDS: PROMETHAZINE/ CODEINE SYRUP 5 ML UDC PO PRN ×2 (14:53→21:27)
[2021-07-28] MEDS ORDERED: LATUDA 60 MG PO SCH (21:00)
[2021-07-28] MEDS ORDERED: NON-FORMULARY MEDICATION 1 EA EA (Lamotrigine 200 MG) PO SCH (21:00)
[2021-07-28] MEDS: OXYBUTYNIN (DITROPAN) 5 MG TAB PO SCH (21:27)
[2021-07-28] MEDS: traZODone 100 MG (DESYREL) TAB PO SCH (21:27)
[2021-07-29] MEDS: methylPREDNISolone 40 MG/ML (Solu-MEDROL) VIAL IV SCH ×5 (00:10→23:46)
[2021-07-29] MEDS: ACETAMINOPHEN 500 MG TAB (TYLENOL) PO PRN ×2 (00:11→08:25)
[2021-07-29 00:12] VITALS: BP 110/67
[2021-07-29] MEDS: RT-ALBUTEROL/IPRATROPIUM 3 ML (DUONEB) VIAL INH SCH ×7 (02:16→21:55)
[2021-07-29] MEDS: NS IV 1000 ML 1,000 ML IV SCH ×2 (05:51→16:29)
[2021-07-29 06:29] LABS: BASOPHILS % (AUTO) 0 % (0-10); EOSINOPHILS % (AUTO) 0 % (0-10); HEMATOCRIT 35 % (35-52); HEMOGLOBIN 11.7 g/dL (11.5-16.0); LYMPHOCYTES # (AUTO) 1.4 10^3/uL (1.0-4.0); LYMPHOCYTES % (AUTO) 12 % (12-44); MEAN CORPUSCULAR HEMOGLOBIN 29 pg (25-34); MEAN CORPUSCULAR HGB CONC 33 g/dL (32-36); MEAN CORPUSCULAR VOLUME 87 fL (80-99); MONOCYTES # (AUTO) 0.7 10^3/uL (0.0-1.0); MONOCYTES % (AUTO) 7 % (0-12); NEUTROPHILS # (AUTO) 8.2 10^3/uL (1.8-7.8); NEUTROPHILS % (AUTO) 73 % (42-75); PLATELET COUNT 132 10^3/uL (130-400); WHITE BLOOD COUNT 11.2 10^3/uL (4.3-11.0)
[2021-07-29 06:45] LABS: SMEAR SCAN COMMENT YES
[2021-07-29 06:52] LABS: ALBUMIN 3.2 GM/DL (3.2-4.5); BILIRUBIN,TOTAL 0.3 MG/DL (0.1-1.0); CALCIUM 9.3 MG/DL (8.5-10.1); CREATININE SERUM 0.6 MG/DL (0.60-1.30); POTASSIUM 3.8 MMOL/L (3.6-5.0); TOTAL PROTEIN 5.1 GM/DL (6.4-8.2)
[2021-07-29 07:50] VITALS: BP 126/70
[2021-07-29] MEDS: PANTOPRAZOLE 40 MG (PROTONIX) TAB PO SCH (08:24)
[2021-07-29] MEDS: OSELTAMIVIR 75 MG (TAMIFLU) CAPSULE PO SCH ×2 (08:24→19:46)
[2021-07-29] MEDS: OXYBUTYNIN (DITROPAN) 5 MG TAB PO SCH ×2 (08:24→19:47)
[2021-07-29] MEDS ORDERED: HYDROcodone/APAP 5 MG/325 MG (LORTAB) TAB ONE (12:15)
[2021-07-29] MEDS: HYDROcodone/APAP 5 MG/325 MG (LORTAB) TAB PO PRN ×3 (12:21→23:46)
[2021-07-29] MEDS: PROMETHAZINE/ CODEINE SYRUP 5 ML UDC PO PRN ×2 (12:26→19:46)
[2021-07-29 16:15] VITALS: BP 142/71
[2021-07-29] MEDS ORDERED: fentaNYL INJ 100 MCG/2 ML AMP IVP NR (18:45)
[2021-07-29] MEDS: traZODone 100 MG (DESYREL) TAB PO SCH (19:47)
--- NOTE | 2021-07-29 22:58 | Progress Note ---
Subjective Subjective/Events-last exam Patient doing better this AM. States that she has a lump in her right armpit that is getting worse and more painful. Now having some swelling and erythema with some streaking down her left chest wall. Denies any chest pain or shortness of breath. Review of Systems Pulmonary: Dyspnea Neurological: Weakness Right under arm swelling and pain Focused Exam Lactate Level 07/27/21 10:42: Lactic Acid Level 1.21 Objective Exam Last Set of Vital Signs Vital Signs Date Time Temp Pulse Resp B/P (MAP) Pulse Ox O2 Delivery O2 Flow Rate FiO2 07/29/21 21:55 94 Nasal Cannula 3.00 07/29/21 16:15 37.2 85 22 142/71 (94) 07/27/21 18:36 32 Capillary Refill : Less Than 3 Seconds I&O Intake and Output 07/29/21 00:00 Intake Total 2600 ml Output Total 3500 ml Balance -900 ml Intake Oral 2600 ml Output Urine Total 3500 ml # Voids 2 General: Alert, Oriented X3, No Acute Distress Lungs: Normal Air Movement, Other (end exp wheezing at the bases, normal work of breathing at baseline) Heart: Regular Rate, No Murmurs Abdomen: Normal Bowel Sounds, Soft, No Tenderness Extremities: No Edema, No Tenderness/Swelling Neuro: Normal Speech, Cranial Nerves 3-12 NL Results/Procedures Lab Laboratory Tests 07/29/21 06:13: White Blood Count 11.2H, Red Blood Count 4.03, Hemoglobin 11.7, Hematocrit 35, Mean Corpuscular Volume 87, Mean Corpuscular Hemoglobin 29, Mean Corpuscular Hemoglobin Concent 33, Red Cell Distribution Width 12.9, Platelet Count 132, Mean Platelet Volume 10.0, Immature Granulocyte % (Auto) 8, Neutrophils (%) (Auto) 73, Lymphocytes (%) (Auto) 12, Monocytes (%) (Auto) 7, Eosinophils (%) (Auto) 0, Basophils (%) (Auto) 0, Neutrophils # (Auto) 8.2H, Lymphocytes # (Auto) 1.4, Monocytes # (Auto) 0.7, Eosinophils # (Auto) 0.0, Basophils # (Auto) 0.0, Immature Granulocyte # (Auto) 0.9H, Sodium Level 140, Potassium Level 3.8, Chloride Level 105, Carbon Dioxide Level 23, Anion Gap 12, Blood Urea Nitrogen 8, Creatinine 0.60, Estimat Glomerular Filtration Rate 102, BUN/Creatinine Ratio 13, Glucose Level 141H, Calcium Level 9.3, Corrected Calcium 9.9, Total Bilirubin 0.3, Aspartate Amino Transf (AST/SGOT) 20, Alanine Aminotransferase (ALT/SGPT) 17, Alkaline Phosphatase 72, Total Protein 5.1L, Albumin 3.2, Smear Scan YES Microbiology 07/27/21 Urine Culture - Final, Complete Escherichia coli 07/27/21 Blood Culture - Preliminary, Resulted Staphylococcus hominis See Comments Assessment/Plan Assessment/Plan (1) Acute and chronic respiratory failure Status: Acute Assessment & Plan: - Patient requiring 5L NC, will titrate as tolerated, MAT protocol, Steroids, IS, increase ambulation 07/29: Titrated down to 3L NC, continue to titrate as tolerated, PT ordered to increase ambulation (2) COPD exacerbation Status: Acute (3) Influenza A Status: Acute Assessment & Plan: - Continue Tamiflu (4) Abscess of right axilla Status: Acute Assessment & Plan: 07/29: I&D performed today, warm compresses, clindamycin started for cellulitis associated with abcess (5) HTN (hypertension) Status: Chronic Assessment & Plan: - Holding blood pressure medications at this time due to normotensive pressures Qualifiers: Qualified Codes: I10 - Essential (primary) hypertension (6) Generalized weakness Status: Acute Assessment & Plan: - Will order PT (7) Depression Status: Chronic Assessment & Plan: - Patient states that she had SI about 1 month ago, she denies having such ideas since then and is not currently suicidal at this time, Will continue home psych medications Qualifiers: Qualified Codes: F33.1 - Major depressive disorder, recurrent, moderate (8) BMI 45.0-49.9, adult Status: Chronic LIA GRAYSON MD Jul 29, 2021 22:58
[2021-07-29 23:49] VITALS: BP 129/66
[2021-07-30] MEDS: RT-ALBUTEROL/IPRATROPIUM 3 ML (DUONEB) VIAL INH SCH ×6 (02:00→21:48)
[2021-07-30] MEDS: NS IV 1000 ML 1,000 ML IV SCH ×3 (02:26→20:01)
[2021-07-30 06:03] LABS: ALBUMIN 3.2 GM/DL (3.2-4.5); POTASSIUM 3.9 MMOL/L (3.6-5.0)
[2021-07-30 06:04] LABS: CALCIUM 9.4 MG/DL (8.5-10.1)
[2021-07-30 06:05] LABS: TOTAL PROTEIN 5.3 GM/DL (6.4-8.2)
[2021-07-30 06:07] LABS: BILIRUBIN,TOTAL 0.6 MG/DL (0.1-1.0)
[2021-07-30] MEDS: methylPREDNISolone 40 MG/ML (Solu-MEDROL) VIAL IV SCH ×3 (06:08→17:57)
[2021-07-30 06:09] LABS: CREATININE SERUM 0.61 MG/DL (0.60-1.30)
[2021-07-30 06:16] LABS: BASOPHILS % (AUTO) 0 % (0-10); EOSINOPHILS % (AUTO) 0 % (0-10); HEMATOCRIT 35 % (35-52); HEMOGLOBIN 11.6 g/dL (11.5-16.0); LYMPHOCYTES # (AUTO) 1.4 10^3/uL (1.0-4.0); LYMPHOCYTES % (AUTO) 19 % (12-44); MEAN CORPUSCULAR HEMOGLOBIN 29 pg (25-34); MEAN CORPUSCULAR HGB CONC 34 g/dL (32-36); MEAN CORPUSCULAR VOLUME 87 fL (80-99); MONOCYTES # (AUTO) 0.4 10^3/uL (0.0-1.0); MONOCYTES % (AUTO) 5 % (0-12); NEUTROPHILS # (AUTO) 5.6 10^3/uL (1.8-7.8); NEUTROPHILS % (AUTO) 75 % (42-75); PLATELET COUNT 132 10^3/uL (130-400); WHITE BLOOD COUNT 7.4 10^3/uL (4.3-11.0)
[2021-07-30] MEDS: RT-ALBUTEROL/IPRATROPIUM 3 ML (DUONEB) VIAL INH PRN (07:30)
[2021-07-30] MEDS: HYDROcodone/APAP 5 MG/325 MG (LORTAB) TAB PO PRN ×3 (08:00→18:00)
[2021-07-30] MEDS: PANTOPRAZOLE 40 MG (PROTONIX) TAB PO SCH (08:00)
[2021-07-30] MEDS: OXYBUTYNIN (DITROPAN) 5 MG TAB PO SCH ×2 (08:00→20:01)
[2021-07-30] MEDS: ACETAMINOPHEN 500 MG TAB (TYLENOL) PO PRN (08:00)
[2021-07-30] MEDS: OSELTAMIVIR 75 MG (TAMIFLU) CAPSULE PO SCH ×2 (08:01→20:01)
[2021-07-30 08:03] VITALS: BP 134/86
[2021-07-30] MEDS: CLINDAMYCIN 150 MG (CLEOCIN) CAP PO SCH ×2 (08:13→20:01)
--- NOTE | 2021-07-30 10:28 | Physical Therapy Evaluation ---
PT Evaluation-General Medical Diagnosis Admission Date Jul 27, 2021 at 11:35 Medical Diagnosis: COPD exacerbation, influenza Onset Date: Jul 30, 2021 Therapy Diagnosis Therapy Diagnosis: Impaired mobility, ambulation, activity tolerance, strength Height/Weight Height (Feet): 5 Height (Inches): 7.00 Weight (Pounds): 291 Weight (Ounces): 0.0 Precautions Precautions/Isolations: Droplet Isolation, Fall Prevention Weight Bear Status Right Lower Extremity: Right Full Weight Bearing Left Lower Extremity: Left Full Weight Bearing Referral Physician: Arianne Reason for Referral: Evaluation/Treatment Medical History Pertinent Medical History: COPD, HTN Additional Medical History COPD baseline oxygen 2L NC qhs only Depression with h/o SI Obesity BMI 43 Reviewed History: Yes Social History Home: Single Level Current Living Status: Alone Entry Into Home: Stairs With Railing PT Steps Into Home: 4 Prior Prior Level of Function SCALE: Activities may be completed with or without assistive devices. 5-Hodlawkrjs-cfvpkfj completes the activity by him/herself with no assistance f rom a helper. 5-Set-up or Clean-up Assistance-helper sets up or cleans up; patient completes activity. [place] assists only prior to or following the activity. 4-Supervision or Touching Assistance-helper provides verbal cues and/or touching/steadying and/or contact guard assistance as patient completes activity. Assistance may be provided throughout the activity or intermittently. 3-Partial/Moderate Assistance-helper does LESS THAN HALF the effort. [place] lifts, holds or supports trunk or limbs, but provides less than half the effort. 2-Substantial/Maximal Assistance-helper does MORE THAN HALF the effort. [place] lifts or holds trunk or limbs and provides more than half the effort. 9-Nxxtwosdg-unlhue does ALL the effort. Patient does none of the effort to complete the activity. Or, the assistance of 2 or more helpers is required for the patient to complete the activity. If activity was not attempted, code reason: 7-Patient Refused. 9-Not Applicable-not attempted and the patient did not perform the activity before the current illness, exacerbation or injury. 10-Not Attempted due to Environmental Limitations-(lack of equipment, weather restraints, etc.). 88-Not Attempted due to Medical Conditions or Safety Concerns. Bed Mobility: 6 Transfers (B,C,W/C): 6 Gait: 6 Stairs: 6 Indoor Mobility (Ambulation): Independent Stairs: Independent Prior Devices Use: None PT Evaluation-Current Subjective Patient was in bed upon entry and compliant to treat. Patient complains of R armpit and breast pain. Pain Numeric Pain Scale: 9 Location: Right Location Body Site: Breast Objective Patient Orientation: Person, Place, Situation Attachments: Oxygen, IV ROM/Strength ROM Lower Extremities Grossly WFL Strength Lower Extremities R LE (hip flexion 4-/5, Knee extension 4/5, Knee flexion 4-/5, DF 4/5); L LE (hip flexion 3+/5, Knee extension 4/5, Knee flexion 4-/5, DF 4/5) Integumentary/Posture Bowel Incontinence: No Bladder Incontinence: No Sensory Vision: Functional Hearing: Functional Sensation Right Lower Extremit: Intact Sensation Left Lower Extremity: Intact Transfers Sit to Lying (QC): 3 Lying to Sitting/Side of Bed(Q: 3 Sit to Stand (QC): 4 Gait Does the Patient Walk?: Yes Mode of Locomotion: Walk Anticipated Mode of Locomotion: Walk Walk 10 feet (QC): 4 (SBA) Walk 50 ft with 2 Turns(QC): 4 (SBA) Distance: 50' Gait Assistive Device: None Wheelchair Training Does the Pt Use a Wheelchair?: No Type of Wheelchair: N/A Balance Sitting Static: Normal Sitting Dynamic: Normal Standing Static: Normal Standing Dynamic: Normal Treatment Transfers Ambulation Assessment/Needs Patient demonstrated good balance while walking without a FWW. Patient did not want to wear oxygen while walking, but O2 sats dropped to mid 80s after walking activity. After recovery period and oxygen administered, O2 sats went back above 90. Patient was left in bed with call light, tray, and all needs met. 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 Goals Retirement Goals PT Retirement Goals Time Frame: August 06, 2021 Roll Left & Right (QC): 6 Sit to Lying (QC): 6 Lying-Sitting on Side/Bed(QC): 6 Sit to Stand (QC): 6 Walk 10 feet (QC): 6 Walk 50ft with 2 Turns (QC): 6 Walk 150 ft (QC): 6 PT Plan Problem List Problem List: Activity Tolerance, Functional Strength, Safety, Balance, Gait, Transfer, Bed Mobility, ROM Treatment/Plan Treatment Plan: Continue Plan of Care Treatment Plan: Bed Mobility, Education, Functional Activity Jessica, Functional Strength, Gait, Safety, Therapeutic Exercise, Transfers Treatment Duration: August 20, 2021 Frequency: At least 5 of 7 days/Wk (IRF) Estimated Hrs Per Day: .25 hour per day Patient and/or Family Agrees t: Yes Safety Risks/Education Patient Education: Gait Training, Transfer Techniques, Correct Positioning, Safety Issues Teaching Recipient: Patient Teaching Methods: Discussion Response to Teaching: Verbalize Understanding Discharge Recommendations Plan To work on LE strengthening and ambulation to be independent at home. Therapy Discharge Recommendati: Home & Family, Post Acute PT Time/GCodes Time In: 1003 Time Out: 1019 Total Billed Treatment Time: 16 Total Billed Treatment EVL 16min WILFRID STRATTON PT Jul 30, 2021 10:28
[2021-07-30 11:16] VITALS: BP 134/86
[2021-07-30 15:35] VITALS: BP 121/83
[2021-07-30] MEDS: traZODone 100 MG (DESYREL) TAB PO SCH (20:02)
--- NOTE | 2021-07-30 20:41 | Progress Note ---
Subjective Subjective/Events-last exam Patient states that her breathing is at baseline but her right axilla is still very hot and painful. It hurts when she moves her right arm. States that her right breast is more swollen today. She is having purulent drainage from abscess Review of Systems Neurological: Weakness Right under arm swelling and pain Objective Exam Last Set of Vital Signs Vital Signs Date Time Temp Pulse Resp B/P (MAP) Pulse Ox O2 Delivery O2 Flow Rate FiO2 07/30/21 18:37 90 Nasal Cannula 2.00 07/30/21 15:35 36.9 93 24 121/83 (96) 07/30/21 11:16 32 Capillary Refill : Less Than 3 Seconds I&O Intake and Output 07/29/21 23:59 Intake Total 4780 ml Balance 4780 ml Intake Oral 3780 ml IV Total 1000 ml # Voids 12 General: Alert, Oriented X3, No Acute Distress Lungs: Clear to Auscultation, Normal Air Movement Heart: Regular Rate, No Murmurs Abdomen: Normal Bowel Sounds, Soft, No Tenderness Skin: Other (Right axilla with cellulitis and abscess, purulent drainage, induration and swelling into right breast) Results/Procedures Lab Laboratory Tests 07/30/21 05:43: White Blood Count 7.4, Red Blood Count 4.00, Hemoglobin 11.6, Hematocrit 35, Mean Corpuscular Volume 87, Mean Corpuscular Hemoglobin 29, Mean Corpuscular Hemoglobin Concent 34, Red Cell Distribution Width 13.2, Platelet Count 132, Mean Platelet Volume 10.0, Immature Granulocyte % (Auto) 1, Neutrophils (%) (Auto) 75, Lymphocytes (%) (Auto) 19, Monocytes (%) (Auto) 5, Eosinophils (%) (Auto) 0, Basophils (%) (Auto) 0, Neutrophils # (Auto) 5.6, Lymphocytes # (Auto) 1.4, Monocytes # (Auto) 0.4, Eosinophils # (Auto) 0.0, Basophils # (Auto) 0.0, Immature Granulocyte # (Auto) 0.0, Sodium Level 136, Potassium Level 3.9, Chloride Level 100, Carbon Dioxide Level 23, Anion Gap 13, Blood Urea Nitrogen 5L, Creatinine 0.61, Estimat Glomerular Filtration Rate 102, BUN/Creatinine Ratio 8, Glucose Level 143H, Calcium Level 9.4, Corrected Calcium 10.0, Total Bilirubin 0.6, Aspartate Amino Transf (AST/SGOT) 16, Alanine Aminotransferase (ALT/SGPT) 17, Alkaline Phosphatase 58, Total Protein 5.3L, Albumin 3.2 Microbiology 07/29/21 Gram Stain - Final, Resulted 07/29/21 Wound Culture - Preliminary, Resulted Staphylococcus aureus 07/27/21 Urine Culture - Final, Complete Escherichia coli 07/27/21 Blood Culture - Preliminary, Resulted Staphylococcus hominis Staphylococcus hominis#2 See Comments Assessment/Plan Assessment/Plan (1) Acute and chronic respiratory failure Status: Acute Assessment & Plan: - Patient requiring 5L NC, will titrate as tolerated, MAT protocol, Steroids, IS, increase ambulation 07/29: Titrated down to 3L NC, continue to titrate as tolerated, PT ordered to increase ambulation 07/30: Will order home oxygen study prior to d/c due to continual need. (2) COPD exacerbation Status: Acute (3) Influenza A Status: Acute Assessment & Plan: - Continue Tamiflu (4) Abscess of right axilla Status: Acute Assessment & Plan: 07/29: I&D performed today, warm compresses, clindamycin started for cellulitis associated with abcess 07/30: Pain has improved only minimally, culture + MRSA, increased swelling and induration, consulted Dr Yancey (5) MRSA (methicillin resistant staph aureus) culture positive Status: Acute (6) HTN (hypertension) Status: Chronic Assessment & Plan: - Holding blood pressure medications at this time due to normotensive pressures Qualifiers: Qualified Codes: I10 - Essential (primary) hypertension (7) Generalized weakness Status: Acute Assessment & Plan: - Will order PT (8) Depression Status: Chronic Assessment & Plan: - Patient states that she had SI about 1 month ago, she denies having such ideas since then and is not currently suicidal at this time, Will continue home psych medications Qualifiers: Qualified Codes: F33.1 - Major depressive disorder, recurrent, moderate (9) BMI 45.0-49.9, adult Status: Chronic LIA GRAYSON MD Jul 30, 2021 20:41
--- NOTE | 2021-07-30 22:20 | Diagnostic Imaging Report ---
INDICATION: Possible right axillary abscess. EXAMINATION: Sonographic interrogation of the right axilla was performed. FINDINGS: There is some edema in the subcutaneous tissues. There is some vascularity present. However, no discrete fluid collection or abscess is identified. IMPRESSION: There is some mild edema and vascularity but no abscess is detected. ACR BI-RADS Category 1: Negative. Result letter will be mailed to the patient. Note: At least 10% of breast cancer is not imaged by mammography. Dictated by: Dictated on workstation # [id number]
--- NOTE | 2021-07-30 23:02 | Consultation - Surgery ---
History of Present Illness History of Present Illness Patient Consulted On(jw/time) 07/30/21 12:06 Date Seen by Provider: Jul 30, 2021 Time Seen by Provider: 12:06 History of Present Illness Consult requested by Dr. Acuña for right breast cellulitis/axillary abscess. Patient is 60-year-old female who began feeling ill approximately 1 week ago. Patient acute respiratory failure and was admitted on 07/28/2001. Patient on 426 was noted to have a lump in the right axillary breast area. She had incision and drainage performed at that time. The area should she states it is moderately tender at this time. The right breast is also tender. Not really im proved much she states. Touching the area or rubbing something against that causes more discomfort. Nothing that she knows of really makes it better. No radiation of pain. Patient reports breathing issues and fever. Denies any sweats chills or chest pain or nausea or vomiting at this time. Allergies and Home Medications Allergies Coded Allergies: aspirin (Unverified Allergy, Unknown, 07/01/15) Penicillins (Unverified Adverse Reaction, Mild, N/V, 07/02/15) Patient Home Medication List Home Medication List Reviewed: Yes Acetaminophen (Tylenol Extra Strength) 500 Mg Tablet, 1,000 MG PO Q6H PRN for PAIN-MILD (1-4), (Reported) Entered as Reported by: GAIL KUO on 07/28/21 1048 Last Action: Reviewed Albuterol Sulfate (Proair Hfa) 1 Puff Puff, 2 PUFF IH Q4H PRN for SHORTNESS OF BREATH, (Reported) Entered as Reported by: MARYANN GARCIA on 08/31/20 0627 Last Action: Reviewed Albuterol Sulfate (Albuterol Sulfate) 2.5 Mg/3 Ml (0.083 %) Vial.neb, 2.5 MG INH Q4H PRN for SHORTNESS OF BREATH, (Reported) Entered as Reported by: GAIL KUO on 07/28/21 1037 Last Action: Reviewed Atorvastatin Calcium (Atorvastatin Calcium) 40 Mg Tablet, 40 MG PO DAILY, (Rep orted) Entered as Reported by: GAIL KUO on 07/28/21 1031 Last Action: Reviewed Budesonide/Glycopyr/Formoterol (Breztri Aerosphere Inhaler) 160 Mcg-9 Mcg-4.8 Mcg/Actuation Hfa.aer.ad, 1 PUFF PO BID, (Reported) Entered as Reported by: GAIL KUO on 07/28/21 1038 Last Action: Reviewed Diphenhydramine HCl (Benadryl) 25 Mg Capsule, 25 MG PO HS, (Reported) Entered as Reported by: GAIL KUO on 07/28/21 1047 Last Action: Reviewed Lamotrigine (Lamotrigine) 200 Mg Tablet, 200 MG PO HS, (Reported) Entered as Reported by: MARYANN GARCIA on 08/31/20622 Last Action: Converted Lisinopril (Lisinopril) 10 Mg Tablet, 10 MG PO DAILY, (Reported) Entered as Reported by: KHRIS GONZALES on 06/07/191512 Last Action: Reviewed Montelukast Sodium (Montelukast Sodium) 10 Mg Tablet, 10 MG PO DAILY, (Reported) Entered as Reported by: MARYANN GARCIA on 08/31/20622 Last Action: Reviewed Oxybutynin Chloride (Oxybutynin Chloride) 5 Mg Tablet, 5 MG PO BID, (Reported) Entered as Reported by: MARYANN GARCIA on 08/31/20622 Last Action: Continued Pantoprazole Sodium (Pantoprazole Sodium) 40 Mg Tablet.dr, 40 MG PO DAILY, (Reported) Entered as Reported by: MARYANN GARCIA on 08/31/20626 Last Action: Reviewed Trazodone HCl (Trazodone HCl) 100 Mg Tablet, 200 MG PO HS, (Reported) Entered as Reported by: GAIL KUO on 07/28/21 1040 Last Action: Reviewed [Latuda] , 60 MG PO HS, (Reported) Entered as Reported by: GAIL KUO on 07/28/21 1033 Last Action: Converted Discontinued Medications Atorvastatin Calcium (Atorvastatin Calcium) 20 Mg Tablet, 40 MG PO HS, (Reported) Discontinued Reason: Prescription changed Entered as Reported by: KHRIS GONZALES on 06/07/191512 Last Action: Edited Cefdinir (Cefdinir) 300 Mg Capsule, 300 MG PO BID Discontinued Reason: No Longer Taking Prescribed by: GERARDO IBARRA on 09/02/20 1142 Last Action: Discontinued Diphenhydramine HCl (Benadryl Allergy) 25 Mg Tablet, 25 MG PO HS, (Reported) Discontinued Reason: No Longer Taking Entered as Reported by: PELON VENTURA on 08/31/20644 Last Action: Discontinued Fluticasone Propionate (Flonase Allergy Relief) 9.9 Ml Herreid.susp, 2 SPRAY NS BID, (Reported) Discontinued Reason: No Longer Taking Entered as Reported by: PELON VENTURA on 08/31/20644 Last Action: Discontinued Lurasidone HCl (Latuda) 80 Mg Tablet, 80 MG PO DAILY, (Reported) Discontinued Reason: Prescription changed Entered as Reported by: MARYANN GARCIA on 08/31/20622 Last Action: Reviewed Lurasidone HCl (Latuda) 40 Mg Tablet, 60 MG PO DAILY Discontinued Reason: No Longer Taking Prescribed by: DELIA MARRUFO on 07/27/21 1704 Last Action: Discontinued Prednisone (Prednisone) 10 Mg Tab, (Reported) Discontinued Reason: No Longer Taking Entered as Reported by: MARYANN GARCIA on 08/31/20622 Last Action: Discontinued Prednisone (Prednisone) 10 Mg Tab.ds.pk, 10 MG PO DAILY Discontinued Reason: No Longer Taking Prescribed by: GERARDO IBARRA on 09/02/20 1142 Last Action: Discontinued Promethazine HCl/Codeine (Prometh-Codein 6.25-10 mg/5 ml) 5 Ml Syrup, 5 ML PO Q4H Discontinued Reason: No Longer Taking Prescribed by: GERARDO IBARRA on 09/02/20 1148 Last Action: Discontinued Trazodone HCl (Trazodone HCl) 150 Mg Tablet, 100 MG PO HS, (Reported) Discontinued Reason: Prescription changed Entered as Reported by: MARYANN GARCIA on 08/31/20622 Last Action: Last Taken Edited Past Firasdp-Tsbpop-Mxqjed Hx Patient Social History Drug of Choice: DENIES Smoking Status: Current Everyday Smoker Type Used: Cigarettes 2nd Hand Smoke Exposure: Yes Recent Hopitalizations: No Alcohol Use?: No Substance type: Nicotine Have you traveled recently?: No Immunizations Up To Date Date of Pneumonia Vaccine: Jun 21, 2012 Date of Influenza Vaccine: Jan 04, 2020 Seasonal Allergies Seasonal Allergies: No Surgeries History of Surgeries: Yes (JESENIA 1979; BILATERAL CATARACT SURGERY) Surgeries: Eye Surgery, Gallbladder, Tonsillectomy Respiratory History of Respiratory Disorde: Yes (O2 AT HS 3L/NC AND PRN) Respiratory Disorders: COPD, Emphysema Cardiovascular History of Cardiac Disorders: Yes Cardiac Disorders: High Cholesterol, Hypertension Neurological History of Neurological Disord: No Reproductive System Hx Reproductive Disorders: No Sexually Transmitted Disease: No HIV/AIDS: No Genitourinary History of Genitourinary Disor: No Gastrointestinal History of Gastrointestinal Di: Yes Gastrointestinal Disorders: Gastroesophageal Reflux, Gall Bladder Disease Musculoskeletal History of Musculoskeletal Dis: No Endocrine History of Endocrine Disorders: No HEENT History of HEENT Disorders: No Cancer History of Cancer: No Psychosocial History of Psychiatric Problem: Yes Behavioral Health Disorders: Anxiety Integumentary History of Skin or Integumenta: No Blood Transfusions History of Blood Disorders: No Reviewed Nursing Assessment Reviewed/Agree w Nursing PMH: Yes Family Medical History Significant Family History: No Pertinent Family Hx Review of Systems-General Constitutional: No diaphoresis; weakness EENTM: No blurred vision, No double vision Respiratory: dyspnea on exertion, short of breath Cardiovascular: No chest pain, No palpitations Gastrointestinal: No abdominal pain, No nausea, No vomiting Genitourinary: No decreased output, No discharge Musculoskeletal: No back pain, No joint pain Skin: change in color (Right axillary/breast); No change in hair/nails Psychiatric/Neurological: Denies Anxiety; Depressed All Other Systems Reviewed Negative Unless Noted: Yes (Negative excepted noted.) Physical Exam-General Problems Physical Exam Vital Signs Vital Signs - First Documented 07/27/21 18:36 FiO2 32 Capillary Refill : Less Than 3 Seconds General Appearance: no apparent distress, obese HEENT: PERRL/EOMI, normal ENT inspection Neck: full range of motion, supple Respiratory: chest non-tender, other (Minimally labored breathing) Cardiovascular: regular rate, rhythm, no JVD Gastrointestinal: non tender, soft Rectal: deferred Back: no CVA tenderness, no vertebral tenderness Extremities: non-tender, normal inspection Neurologic/Psychiatric: alert, normal mood/affect, oriented x 3 Skin: warm/dry, other (Right breast/axillary area examined with female nurse in room. There is an indurated area in the right axillary portion with a skin opening from previous incision and drainage. There is no fluctuance to the area. The erythema goes down to the right lateral aspect of the breast. No other palpable abnormality.) Lymphatic: no adenopathy Data Review Labs Laboratory Tests 07/30/21 05:43: White Blood Count 7.4, Red Blood Count 4.00, Hemoglobin 11.6, Hematocrit 35, Mean Corpuscular Volume 87, Mean Corpuscular Hemoglobin 29, Mean Corpuscular Hemoglobin Concent 34, Red Cell Distribution Width 13.2, Platelet Count 132, Mean Platelet Volume 10.0, Immature Granulocyte % (Auto) 1, Neutrophils (%) (Auto) 75, Lymphocytes (%) (Auto) 19, Monocytes (%) (Auto) 5, Eosinophils (%) (Auto) 0, Basophils (%) (Auto) 0, Neutrophils # (Auto) 5.6, Lymphocytes # (Auto) 1.4, Monocytes # (Auto) 0.4, Eosinophils # (Auto) 0.0, Basophils # (Auto) 0.0, Immature Granulocyte # (Auto) 0.0, Sodium Level 136, Potassium Level 3.9, Chloride Level 100, Carbon Dioxide Level 23, Anion Gap 13, Blood Urea Nitrogen 5L, Creatinine 0.61, Estimat Glomerular Filtration Rate 102, BUN/Creatinine Ratio 8, Glucose Level 143H, Calcium Level 9.4, Corrected Calcium 10.0, Total Bilirubin 0.6, Aspartate Amino Transf (AST/SGOT) 16, Alanine Aminotransferase (ALT/SGPT) 17, Alkaline Phosphatase 58, Total Protein 5.3L, Albumin 3.2 Microbiology 07/29/21 Gram Stain - Final, Resulted 07/29/21 Wound Culture - Preliminary, Resulted Staphylococcus aureus 07/27/21 Urine Culture - Final, Complete Escherichia coli 07/27/21 Blood Culture - Preliminary, Resulted Staphylococcus hominis Staphylococcus hominis#2 See Comments Assessment/Plan Assessment/Plan Assessment/Plan Right breast abscess status post incision and drainage. Currently there is no fluctuance to the area just induration on exam. There is no purulent drainage from the area as well noted. Right breast cellulitis Acute respiratory failure Obesity Patient has already had incision and drainage of the right axillary area. There is no current drainage except for the induration. We will get an ultrasound to further evaluate to see if there is any deep abscess. Will continue on current antibiotics. Would continue with warm compresses. Will continue to monitor the area as she may need further intervention. Patient understands and agrees with plan. MIRZA CONNORS DO Jul 30, 2021 23:02
[2021-07-31] VITALS (17 sets, daily range): BP systolic 72–127; BP diastolic 40–94
[2021-07-31 02:44] LABS: ABG BASE EXCESS 2.6 MMOL/L (-2.5-2.5); ABG OXYGEN SATURATION 92 % (94-100); ABG PCO2 42 MMHG (35-45); ABG PH 7.42 (7.37-7.43); ABG PO2 61 MMHG (79-93); ABG TCO2 27.7 MMOL/L (21.0-31.0)
[2021-07-31] MEDS: RT-ALBUTEROL/IPRATROPIUM 3 ML (DUONEB) VIAL INH SCH ×5 (02:44→22:12)
[2021-07-31 02:45] LABS: ALLENS TEST YES-POS; INSPIRED O2 4L; PATIENT TEMP 37.7; VENTILATOR NO
[2021-07-31] MEDS: ACETAMINOPHEN 500 MG TAB (TYLENOL) PO PRN (02:45)
[2021-07-31 03:03] LABS: BASOPHILS % (AUTO) 0 % (0-10); EOSINOPHILS % (AUTO) 0 % (0-10); HEMATOCRIT 36 % (35-52); HEMOGLOBIN 12.4 g/dL (11.5-16.0); LYMPHOCYTES % (AUTO) 35 % (12-44); MEAN CORPUSCULAR HEMOGLOBIN 29 pg (25-34); MEAN CORPUSCULAR HGB CONC 34 g/dL (32-36); MEAN CORPUSCULAR VOLUME 85 fL (80-99); MEAN PLATELET VOLUME 9.6 fL (9.0-12.2); MONOCYTES # (AUTO) 0.1 10^3/uL (0.0-1.0); MONOCYTES % (AUTO) 5 % (0-12); NEUTROPHILS # (AUTO) 1.6 10^3/uL (1.8-7.8); NEUTROPHILS % (AUTO) 59 % (42-75); PLATELET COUNT 120 10^3/uL (130-400); WHITE BLOOD COUNT 2.7 10^3/uL (4.3-11.0)
[2021-07-31 03:16] LABS: ALBUMIN 3.1 GM/DL (3.2-4.5); POTASSIUM 3.6 MMOL/L (3.6-5.0)
[2021-07-31 03:17] LABS: CALCIUM 9.6 MG/DL (8.5-10.1)
[2021-07-31 03:18] LABS: TOTAL PROTEIN 5.3 GM/DL (6.4-8.2)
[2021-07-31 03:20] LABS: BILIRUBIN,TOTAL 0.9 MG/DL (0.1-1.0)
[2021-07-31 03:22] LABS: CREATININE SERUM 0.61 MG/DL (0.60-1.30)
[2021-07-31 03:34] LABS: BAND NEUTROPHILS 15 %; BASOPHILS % (MANUAL) 0 %; EOSINOPHILS % (MANUAL) 0 %; LYMPHOCYTES % (MANUAL) 33 %; MONOCYTES % (MANUAL) 9 %; NEUTROPHILS % (MANUAL) 33 %; POIKILOCYTOSIS SLIGHT; REACTIVE LYMPHOCYTES 10 %
[2021-07-31 03:35] LABS: TOXIC GRANULATION/VACUOLAZATIO 2+
[2021-07-31] MEDS: PROMETHAZINE/ CODEINE SYRUP 5 ML UDC PO PRN (04:28)
[2021-07-31] MEDS: methylPREDNISolone 40 MG/ML (Solu-MEDROL) VIAL IV SCH ×4 (05:24→17:12)
--- NOTE | 2021-07-31 07:36 | Progress Note - Surgery ---
JOHN TUCKER 07/31/21 0736: Subjective Date Seen by a Provider: Jul 31, 2021 Time Seen by a Provider: 07:31 Subjective/Events-last exam Ms. Stanley is being followed for a right axillary abscess s/p I&D. This morning she reports 10/10 pain in her axillary region. She also reports back pain and muscle pain today. She says her breathing is poor, too. She is on Vapotherm. This morning she was asking for something to help the pain in her back. Review of Systems General: No Chills, No Fatigue HEENT: No Head Aches, No Visual Changes Pulmonary: Dyspnea; No Cough Cardiovascular: No: Chest Pain, Palpitations Gastrointestinal: No: Nausea, Vomiting, Abdominal Pain Musculoskeletal: arm pain, back pain Neurological: No: Weakness, Confusion Objective Exam Vital Signs Date Time Temp Pulse Resp B/P (MAP) Pulse Ox O2 Delivery O2 Flow Rate FiO2 07/31/21 04:29 37.4 87 24 115/75 (88) 94 Nasal Cannula 4.00 07/31/21 02:45 37.7 07/31/21 02:44 92 Nasal Cannula 4.00 07/31/21 00:00 36.0 105 22 123/73 (90) 91 Nasal Cannula 3.00 07/30/21 21:49 90 Nasal Cannula 2.00 07/30/21 20:00 Nasal Cannula 3.00 07/30/21 18:37 90 Nasal Cannula 2.00 07/30/21 15:35 36.9 93 24 121/83 (96) 94 Nasal Cannula 2.00 07/30/21 15:10 92 Nasal Cannula 2.00 07/30/21 11:16 37.0 91 93 32 07/30/21 10:58 93 Nasal Cannula 3.00 07/30/21 08:19 95 Nasal Cannula 3.00 07/30/21 08:03 37.0 98 20 134/86 (102) 95 Nasal Cannula 3.00 I & O 07/31/21 07:00 Intake Total 4260 ml Output Total 600 ml Balance 3660 ml Capillary Refill : Less Than 3 Seconds General Appearance: No Apparent Distress, WD/WN HEENT: PERRL/EOMI; No Scleral Icterus (L), No Scleral Icterus (R) Neck: Normal Inspection, Non Tender Respiratory: Chest Non Tender, No Accessory Muscle Use, No Respiratory Distress, Rales, Wheezing Cardiovascular: Regular Rate, Rhythm, Normal Peripheral Pulses Peripheral Pulses: 2+ Radial Pulses (R), 2+ Radial Pulses (L) Gastrointestinal: non tender, soft Extremity: Normal Inspection, Non Tender, Pedal Edema Neurologic/Psychiatric: Alert, Oriented x3, No Motor/Sensory Deficits, Normal Mood/Affect Skin: Other (Abscess in right axillary crease. Region is erythematous with bandage. Slight sanguineous drainage from site.) Results Lab Laboratory Tests 07/31/21 02:36: Blood Gas Puncture Site LR, Blood Gas Patient Temperature 37.7, Arterial Blood pH 7.42, Arterial Blood Partial Pressure CO2 42, Arterial Blood Partial Pressure O2 61L, Arterial Blood HCO3 27, Arterial Blood Total CO2 27.7, Arterial Blood Oxygen Saturation 92L, Arterial Blood Base Excess 2.6H, Bharat Test YES-POS, Blood Gas Ventilator Setting NO, Blood Gas Inspired Oxygen 4L 07/31/21 02:53: White Blood Count 2.7L, Red Blood Count 4.26, Hemoglobin 12.4, Hematocrit 36, Mean Corpuscular Volume 85, Mean Corpuscular Hemoglobin 29, Mean Corpuscular Hemoglobin Concent 34, Red Cell Distribution Width 12.9, Platelet Count 120L, Mean Platelet Volume 9.6, Immature Granulocyte % (Auto) 1, Neutrophils (%) (Auto) 59, Lymphocytes (%) (Auto) 35, Monocytes (%) (Auto) 5, Eosinophils (%) (Auto) 0, Basophils (%) (Auto) 0, Neutrophils # (Auto) 1.6L, Lymphocytes # (Auto) 1.0, Monocytes # (Auto) 0.1, Eosinophils # (Auto) 0.0, Basophils # (Auto) 0.0, Immature Granulocyte # (Auto) 0.0, Neutrophils % (Manual) 33, Lymphocytes % (Manual) 33, Monocytes % (Manual) 9, Eosinophils % (Manual) 0, Basophils % (Manual) 0, Band Neutrophils 15, Reactive Lymphocytes 10, Smudge Cells 1, Toxic Granulation 2+, Percent Immature Platelet Fraction 3.3, Poikilocytosis SLIGHT, Sodium Level 131L, Potassium Level 3.6, Chloride Level 95L, Carbon Dioxide Level 20L, Anion Gap 16H, Blood Urea Nitrogen 7, Creatinine 0.61, Estimat Glomerular Filtration Rate 102, BUN/Creatinine Ratio 11, Glucose Level 149H, Calcium Level 9.6, Corrected Calcium 10.3H, Total Bilirubin 0.9, Aspartate Amino Transf (AST/SGOT) 16, Alanine Aminotransferase (ALT/SGPT) 8, Alkaline Phosphatase 65, B-Type Natriuretic Peptide 118.5H, Total Protein 5.3L, Albumin 3.1L Microbiology 07/29/21 Gram Stain - Final, Resulted 07/29/21 Wound Culture - Preliminary, Resulted Staphylococcus aureus 07/27/21 Urine Culture - Final, Complete Escherichia coli 07/27/21 Blood Culture - Preliminary, Resulted Staphylococcus hominis Staphylococcus hominis#2 See Comments Assessment/Plan Assessment/Plan Assessment/Plan Assessment: Right breast abscess status post incision and drainage. - Abscess in right axillary crease. Region is erythematous with bandage. Slight sanguineous drainage from site Right breast cellulitis Acute respiratory failure - On vapotherm Obesity Plan: Patient has already had incision and drainage of the right axillary area U/S showed mild edema but no abscess Will continue on current antibiotics. Would continue with warm compresses. Will continue to monitor the area as she may need further intervention. Patient understands and agrees with plan. PETER YANCEY DO 07/31/211937: Subjective Subjective/Events-last exam Patient transferred to the intensive care unit due to increasing shortness of breath and on Vapotherm at this time. Patient having pain in the right axillary right breast region. Tachycardic. Nothing better. Ultrasound did not demonstrate any fluid collection of the right axilla or breast. Patient difficulty breathing. Daughter is at bedside. Objective Exam General Appearance: Moderate Distress HEENT: PERRL/EOMI, Normal ENT Inspection Neck: Normal Inspection Respiratory: Accessory Muscle Use, Respiratory Distress Cardiovascular: Regular Rate, Rhythm, No JVD Gastrointestinal: non tender, soft Extremity: Non Tender, Pedal Edema Neurologic/Psychiatric: Alert, Other (Anxious appearing and appears to have some air hunger) Skin: Other (Skin opening in the right axilla. Still some induration in the surrounding area also significant bruising appearance along the right lateral aspect crossed up into the right breast) Lymphatic: No Adenopathy Assessment/Plan Assessment/Plan Assessment/Plan Right breast abscess status post incision and drainage. - Abscess in right axillary crease. Region is erythematous. Slight drainage from site, bruising from the right lateral aspect extending up into the breast appearance of hematoma Right breast cellulitis Acute respiratory failure - On vapotherm Obesity Patient has already had incision and drainage of the right axillary area continue to monitor the area. U/S showed mild edema but no abscess Will continue on current antibiotics. Would continue with warm compresses. Will continue to monitor the area as she may need further intervention. Patient due to respiratory failure is in the intensive care unit. Await CTA when stable. Supervisory-Addendum Brief Verification & Attestation Participated in pt care: history, MDM, physical Personally performed: exam, history, MDM, supervision of care Care discussed with: Medical Student Procedures: n/a Results interpretation: Verified all documentation Verification and Attestation of Medical Student E/M Service A medical student performed and documented this service in my presence. I reviewed and verified all information documented by the medical student and made modifications to such information, when appropriate. I personally performed the physical exam and medical decision making. Peter Yancey, Jul 31, 2021,19:38 JOHN TUCKER Jul 31, 2021 07:36 PETER YANCEY DO Jul 31, 2021 19:38
--- NOTE | 2021-07-31 07:38 | Diagnostic Imaging Report ---
CHEST 1 VIEW, AP/PA ONLY Indication: Shortness of breath. History of lung nodule Comparison: PET/CT from 10/22/2020 and chest radiograph of 07/27/2021 Findings: The right lower lobe 2 cm pulmonary nodule is seen on today's exam. No consolidations have developed. Please note that the posterior lower lobes are poorly evaluated by portable radiography. No pleural effusion or pneumothorax. Normal cardiomediastinal silhouette. Impression: 1. No acute cardiopulmonary process by portable radiography. 2. The 2 cm right lower lobe pulmonary nodule has been previously worked up with PET/CT from 10/22/2020. Dictated by: Dictated on workstation # [id number]
[2021-07-31] MEDS: CLINDAMYCIN 150 MG (CLEOCIN) CAP PO SCH (08:09)
[2021-07-31] MEDS: OSELTAMIVIR 75 MG (TAMIFLU) CAPSULE PO SCH ×2 (08:09→19:54)
[2021-07-31] MEDS: OXYBUTYNIN (DITROPAN) 5 MG TAB PO SCH ×2 (08:09→19:55)
[2021-07-31] MEDS: PANTOPRAZOLE 40 MG (PROTONIX) TAB PO SCH (08:10)
[2021-07-31] MEDS: HYDROcodone/APAP 5 MG/325 MG (LORTAB) TAB PO PRN ×2 (08:10)
[2021-07-31] MEDS: NS IV 1000 ML 1,000 ML IV SCH ×2 (08:14→19:53)
[2021-07-31] MEDS ORDERED: PATIENT MAY USE OWN MED,SINGLE MED PO SCH (10:15)
[2021-07-31] MEDS ORDERED: FUROSEMIDE 40 MG/4 ML INJ (LASIX) IVP NR (10:57)
--- NOTE | 2021-07-31 11:10 | Progress Note ---
Subjective Subjective/Events-last exam Called to patients room due to increased shortness of breath. She is having pain in her right shoulder and breast. Review of Systems General: Chills Pulmonary: Dyspnea, Cough Cardiovascular: Palpitations Gastrointestinal: No: Nausea, Vomiting, Abdominal Pain, Diarrhea, Constipation Right under arm swelling and pain Objective Exam Last Set of Vital Signs Vital Signs Date Time Temp Pulse Resp B/P (MAP) Pulse Ox O2 Delivery O2 Flow Rate FiO2 07/31/21 08:17 37.0 91 22 101/65 (77) 95 Vapotherm 45.00 30.00 07/30/21 11:16 32 Capillary Refill : Less Than 3 Seconds I&O Intake and Output 07/31/21 00:00 Intake Total 2810 ml Balance 2810 ml Intake Oral 2810 ml # Voids 11 General: Alert, Oriented X3, Moderate Distress (pursed lip breathing and diaphoretic) Lungs: Other (Diffuse wheezing and basilar crackles) Heart: No Murmurs, Other (tachycardic rate) Abdomen: Soft Skin: Other (Right axillary abscess with purulent drainage) Results/Procedures Lab Laboratory Tests 07/31/21 02:36: Blood Gas Puncture Site LR, Blood Gas Patient Temperature 37.7, Arterial Blood pH 7.42, Arterial Blood Partial Pressure CO2 42, Arterial Blood Partial Pressure O2 61L, Arterial Blood HCO3 27, Arterial Blood Total CO2 27.7, Arterial Blood Oxygen Saturation 92L, Arterial Blood Base Excess 2.6H, Bharat Test YES-POS, Blood Gas Ventilator Setting NO, Blood Gas Inspired Oxygen 4L 07/31/21 02:53: White Blood Count 2.7L, Red Blood Count 4.26, Hemoglobin 12.4, Hematocrit 36, Mean Corpuscular Volume 85, Mean Corpuscular Hemoglobin 29, Mean Corpuscular Hemoglobin Concent 34, Red Cell Distribution Width 12.9, Platelet Count 120L, Mean Platelet Volume 9.6, Immature Granulocyte % (Auto) 1, Neutrophils (%) (Auto) 59, Lymphocytes (%) (Auto) 35, Monocytes (%) (Auto) 5, Eosinophils (%) (Auto) 0, Basophils (%) (Auto) 0, Neutrophils # (Auto) 1.6L, Lymphocytes # (Auto) 1.0, Monocytes # (Auto) 0.1, Eosinophils # (Auto) 0.0, Basophils # (Auto) 0.0, Immature Granulocyte # (Auto) 0.0, Neutrophils % (Manual) 33, Lymphocytes % (Manual) 33, Monocytes % (Manual) 9, Eosinophils % (Manual) 0, Basophils % (Manual) 0, Band Neutrophils 15, Reactive Lymphocytes 10, Smudge Cells 1, Toxic Granulation 2+, Percent Immature Platelet Fraction 3.3, Poikilocytosis SLIGHT, Sodium Level 131L, Potassium Level 3.6, Chloride Level 95L, Carbon Dioxide Level 20L, Anion Gap 16H, Blood Urea Nitrogen 7, Creatinine 0.61, Estimat Glomerular Filtration Rate 102, BUN/Creatinine Ratio 11, Glucose Level 149H, Calcium Level 9.6, Corrected Calcium 10.3H, Total Bilirubin 0.9, Aspartate Amino Transf (AST/SGOT) 16, Alanine Aminotransferase (ALT/SGPT) 8, Alkaline Phosphatase 65, B-Type Natriuretic Peptide 118.5H, Total Protein 5.3L, Albumin 3.1L Microbiology 07/29/21 Gram Stain - Final, Resulted 07/29/21 Wound Culture - Preliminary, Resulted Staphylococcus aureus 07/27/21 Urine Culture - Final, Complete Escherichia coli 07/27/21 Blood Culture - Preliminary, Resulted Staphylococcus hominis Staphylococcus hominis#2 See Comments Assessment/Plan Assessment/Plan (1) Sepsis Status: Acute Assessment & Plan: 07/31: Called to patient's room due to decline, now requiring vapotherm, tachycardic, not improving with breathing treatments and patient has known infection. Repeat blood cultures, LA and Fluid bolus started. Patient with known CHF and elevated BNP during this admission so she was given less then the 30mg/kg bolus. Will start with 500 cc bolus and reevaluate. Started on Vancomycin to cover MRSA. ~ 35 min Critical care time stablizing and transferring patient to ICU Qualifiers: Qualified Codes: A41.02 - Sepsis due to methicillin resistant Staphylococcus aureus (2) Lactic acid acidosis Status: Acute Assessment & Plan: 07/31: LA 4, recheck in 2 hrs (3) Acute and chronic respiratory failure Status: Acute Assessment & Plan: - Patient requiring 5L NC, will titrate as tolerated, MAT protocol, Steroids, IS, increase ambulation 07/29: Titrated down to 3L NC, continue to titrate as tolerated, PT ordered to increase ambulation 07/30: Will order home oxygen study prior to d/c due to continual need. 07/31: See Above (4) COPD exacerbation Status: Acute (5) Influenza A Status: Acute Assessment & Plan: - Continue Tamiflu (6) Abscess of right axilla Status: Acute Assessment & Plan: 07/29: I&D performed today, warm compresses, clindamycin started for cellulitis associated with abcess 07/30: Pain has improved only minimally, culture + MRSA, increased swelling and induration, consulted Dr Yancey 07/31: Dr Yancey evaluated with US and no fluid collection was present, will continue to monitor with IV antibiotics and local wound care (7) MRSA (methicillin resistant staph aureus) culture positive Status: Acute (8) HTN (hypertension) Status: Chronic Assessment & Plan: - Holding blood pressure medications at this time due to normotensive pressures Qualifiers: Qualified Codes: I10 - Essential (primary) hypertension (9) Generalized weakness Status: Acute Assessment & Plan: - Will order PT (10) Depression Status: Chronic Assessment & Plan: - Patient states that she had SI about 1 month ago, she denies having such ideas since then and is not currently suicidal at this time, Will continue home psych medications Qualifiers: Qualified Codes: F33.1 - Major depressive disorder, recurrent, moderate (11) BMI 45.0-49.9, adult Status: Chronic LIA GRAYSON MD Jul 31, 2021 11:10
[2021-07-31] MEDS ORDERED: ENOXAPARIN 40 MG/0.4 ML (LOVENOX) SYR SQ SCH ×2 (11:15→11:30)
[2021-07-31] MEDS ORDERED: PIPERACILLIN SODIUM/TAZOBACTAM 4.5 GM in NS (IVPB) 100 ML IV SCH (11:15)
[2021-07-31] MEDS ORDERED: VANCOMYCIN INJECTION 0.1 MG in NS (IVPB) 250 ML IV SCH (11:15)
--- NOTE | 2021-07-31 11:27 | Physical Therapy Daily Note ---
PT Daily Note-Current Subjective Patient sitting upright in bed with HOB elevated. Patient with expressionless look on her face and demonstrates difficulty answering questions initially. She is also taking very short and shallow breaths with her nasal cannula out of her nose. Nasal cannula replaced appropriately and patient encouraged to perform deep breathing. O2 sats monitored and ranged from between 92% and 95%. Patient agreeable to treatment but clearly confused. Reports "[facility]'re at [facility] Mental Status Patient Orientation: Person Attachments: Oxygen, Hinkle Catheter, IV Transfers SCALE: Activities may be completed with or without assistive devices. 2-[id number] completes the activity by him/herself with no assistance from a helper. 5-Set-up or Clean-up Assistance-helper sets up or cleans up; patient completes activity. Mobile assists only prior to or following the activity. 4-Supervision or Touching Assistance-helper provides verbal cues and/or touching/steadying and/or contact guard assistance as patient completes activity. Assistance may be provided throughout the activity or intermittently. 3-Partial/Moderate Assistance-helper does LESS THAN HALF the effort. Mobile lifts, holds or supports trunk or limbs, but provides less than half the effort. 2-Substantial/Maximal Assistance-helper does MORE THAN HALF the effort. Mobile lifts or holds trunk or limbs and provides more than half the effort. 1-Nxmcswxeu-gpsiye does ALL the effort. Patient does none of the effort to complete the activity. Or, the assistance of 2 or more helpers is required for the patient to complete the activity. If activity was not attempted, code reason: 7-Patient Refused. 9-Not Applicable-not attempted and the patient did not perform the activity before the current illness, exacerbation or injury. 10-Not Attempted due to Environmental Limitations-(lack of equipment, weather restraints, etc.). 88-Not Attempted due to Medical Conditions or Safety Concerns. Weight Bearing Right Lower Extremity: Right Full Weight Bearing Left Lower Extremity: Left Full Weight Bearing Gait Training Does the Patient Walk?: Yes Patient unable to safely ambulate this treatment session. Exercises Supine Ex: Ankle pumps, Quad Set, Glut sets, Heel Slides, Short Arc Quads, Straight leg raise, Hip abd/add Supine Reps: 10 Assessment Current Status: Poor Progress Patient unable to safely mobilize this treatment session due to tachypnea and patient being disorientated. Patient unable to appropriately answer all questions. Patient O2 ranged from 87%-95% throughout treatment, however when patient able to perform deep breathing, O2 stays elevated. Patient performed LE therapeutic exercises as listed above with AAROM/AROM. Patient in bed post treatment with all needs met, nursing notified, call light in reach and tele- sitter in room. Attempted to activate the bed alarm however it was not functioning properly. Nurse notified and reports the patient has been attempting to get out of bed which is why the telesitter was added. PT Retirement Goals Budget Accountant Goals PT Budget Accountant Goals Time Frame: August 06, 2021 Roll Left & Right (QC): 6 Sit to Lying (QC): 6 Lying-Sitting on Side/Bed(QC): 6 Sit to Stand (QC): 6 Walk 10 feet (QC): 6 Walk 50ft with 2 Turns (QC): 6 Walk 150 ft (QC): 6 PT Plan Treatment/Plan Treatment Plan: Continue Plan of Care Treatment Plan: Bed Mobility, Education, Functional Activity Jessica, Functional Strength, Gait, Safety, Therapeutic Exercise, Transfers Treatment Duration: August 20, 2021 Frequency: At least 5 of 7 days/Wk (IRF) Estimated Hrs Per Day: .25 hour per day Patient and/or Family Agrees t: Yes Safety Risks/Education Patient Education: Safety Issues Teaching Recipient: Patient Teaching Methods: Demonstration, Discussion Response to Teaching: Reinforcement Needed Time/GCodes Time In: 929 Time Out: 941 Total Billed Treatment Time: 12 Total Billed Treatment Visit, Ex EARL HOOVER PT Jul 31, 2021 11:27
[2021-07-31] MEDS ORDERED: PIPERACILLIN SODIUM/TAZOBACTAM 4.5 GM in NS (IVPB) 100 ML IV NR (11:30)
[2021-07-31] MEDS ORDERED: IOHEXOL 350 MG/ML 100 ML (OMNIPAQUE 350) VIAL IV ONE (11:30)
[2021-07-31] MEDS ORDERED: VANCOMYCIN 2000 MG/NS 500 ML IVPB IV NR ×2 (11:30)
[2021-07-31] MEDS ORDERED: HOLD METFORMIN - RECEIVED CONTRAST 20 ML VIAL IV SCH (11:30)
[2021-07-31] MEDS ORDERED: CATHETER FLUSH 10 ML SYR IV PRN (11:30)
[2021-07-31] MEDS ORDERED: NS 100 ML (IVPB) BAG IV ONE (11:30)
--- NOTE | 2021-07-31 12:12 | Tele-ICU Progress Note ---
Subjective Date Seen by a Provider: Jul 31, 2021 Time Seen by a Provider: 11:45 Subjective/Events-last exam This virtual visit was conducted using real time audio/video. Thank you for asking us to see this patient for respiratory insufficiency due to AECOPD, inf. A. Recent events:Admitted 07/27. Transferred w increased oxygen needs. I. and D. R axillary abscess earlier 07/29/2021. PMH: COPD, HTN, HL, Dep. SH: smoking history: current FH: Non-contributory ROS: as in HPI. PE: Obese. Mild distress. VSS. O2 sat 95% on 15 LPM. HEENT: No obvious masses, adenopathy or JVD. Chest: cdiminished, with crackles on auscultation. CV: RRR S1 S2 No murmur or added sounds. Abd: Non-tender. Bowel sounds Y. : Unremarkable. Hinkle Y. MACHINIST TOOL AND DIE/psychiatric: Grossly intact. No obvious focal findings. Extremities: Trace edema. Capillary refill < 3 seconds. Skin: unremarkable. Results: Elevated BG 149, BNP 118.5. Decreased WCC 2.7, Plts. 129, . B.42/42/61 on 4 LPM. CXR: Hyperinflated, clear.. Available chart/ vitals / labs / images reviewed. Video assessment done using teleICU camera, rest of exam as per RN. A/P: Respiratory insufficiency: Continue present management with Duonebs medrol clair. Consider nicotine patch. Monitor for increasing oxygenation needs and/or need for intubation. Critical Care: critically ill patient. Cont. abx, Lovenox. Discussed with ANA Hernandez. Asked RN to reach out to eICU if any questions or concerns later. Time spent with patient/coordination of care with other health professionals (mins): 27 Sepsis Event Evaluation Height, Weight, BMI Height: 5'7.00" Weight: 291lbs. 0.0oz. [id number]; 43.22 BMI Method:Stated Focused Exam Lactate Level 07/31/21 11:27: Lactic Acid Level 4.06*H Lactic Acid Level Laboratory Tests Test 07/31/21 11:27 Lactic Acid Level 4.06 MMOL/L (0.50-2.00) *H Exam Exam Patient acknowledged, consented, and participated in this virtual visit which was conducted using real time audio/video Vital Signs Date Time Temp Pulse Resp B/P (MAP) Pulse Ox O2 Delivery O2 Flow Rate FiO2 07/31/21 11:46 151 07/31/21 11:45 141 43 127/83 (98) 98 Vapotherm 45.00 30.00 07/31/21 08:17 37.0 91 22 101/65 (77) 95 Vapotherm 45.00 30.00 07/31/21 08:00 Vapotherm 07/31/21 04:29 37.4 87 24 115/75 (88) 94 Nasal Cannula 4.00 07/31/21 02:45 37.7 07/31/21 02:44 92 Nasal Cannula 4.00 07/31/21 00:00 36.0 105 22 123/73 (90) 91 Nasal Cannula 3.00 07/30/21 21:49 90 Nasal Cannula 2.00 07/30/21 20:00 Nasal Cannula 3.00 07/30/21 18:37 90 Nasal Cannula 2.00 07/30/21 15:35 36.9 93 24 121/83 (96) 94 Nasal Cannula 2.00 07/30/21 15:10 92 Nasal Cannula 2.00 I & O 07/31/21 06:59 Intake Total 4260 ml Output Total 600 ml Balance 3660 ml Height & Weight Height: 5'7.00" Weight: 291lbs. 0.0oz. [id number]; 43.22 BMI Method:Stated General Appearance: No Apparent Distress, WD/WN HEENT: PERRL/EOMI; No Scleral Icterus (L), No Scleral Icterus (R) Neck: Normal Inspection, Non Tender Respiratory: Chest Non Tender, No Accessory Muscle Use, No Respiratory Dist ress, Rales, Wheezing Cardiovascular: Regular Rate, Rhythm, Normal Peripheral Pulses Capillary Refill: Less Than 3 Seconds Peripheral Pulses: 2+ Radial Pulses (R), 2+ Radial Pulses (L) Gastrointestinal: non tender, soft Extremity: Normal Inspection, Non Tender, Pedal Edema Neurologic/Psychiatric: Alert, Oriented x3, No Motor/Sensory Deficits, Normal Mood/Affect Skin: Other (Abscess in right axillary crease. Region is erythematous with bandage. Slight sanguineous drainage from site.) Results Lab Laboratory Tests 07/30/21 05:43 07/31/21 02:53 Assessment/Plan Assessment/Plan See free text. Critical Care: Critically Ill Patient PRINCESS KLEIN MD Jul 31, 2021 12:12
[2021-07-31] MEDS ORDERED: ENOXAPARIN 100 MG/1 ML (LOVENOX) SYR SC SCH (13:00)
[2021-07-31] MEDS ORDERED: NS IV 1000 ML 500 ML IV SCH (13:00)
[2021-07-31] MEDS ORDERED: dilTIAZem DRIP PRE-MIX 125 ML IV SCH (13:00)
[2021-07-31 13:30] LABS: ABG BASE EXCESS -0.2 MMOL/L (-2.5-2.5); ABG PCO2 39 MMHG (35-45); ABG PH 7.41 (7.37-7.43); ABG TCO2 25.1 MMOL/L (21.0-31.0)
[2021-07-31 13:35] LABS: ABG OXYGEN SATURATION 59 % (94-100); ABG PO2 34 MMHG (79-93); ALLENS TEST POSITIVE; INSPIRED O2 35 L AT 60%; PATIENT TEMP 37; VENTILATOR NO
[2021-07-31] MEDS ORDERED: DexMEDEtomidine 250 ML DRIP 250 ML IV ONE (13:45)
[2021-07-31] MEDS ORDERED: DexMEDEtomidine 250 ML DRIP 250 ML IV SCH (14:00)
[2021-07-31] MEDS ORDERED: NS IV 1000 ML 1,000 ML ONE (16:03)
[2021-07-31] MEDS ORDERED: PHENYLEPHRINE INJECTION 20 MG in NS (IVPB) 250 ML IV SCH (16:15)
[2021-07-31] MEDS ORDERED: NS IV 1000 ML 1,000 ML IV SCH (16:15)
[2021-07-31] MEDS ORDERED: PHENYLEPHRINE INJECTION 40 MG in NS (IVPB) 250 ML IV SCH (16:30)
[2021-07-31] MEDS ORDERED: PHENYLEPHRINE DRIP 250 ML IV SCH ×2 (16:30)
--- NOTE | 2021-07-31 17:26 | Consultation-Cardiology ---
HPI-Cardiology Cardiology Consultation Date of Consultation 07/31/21 Date of Admission Time Seen by Provider: 17:21 Indication: Atrial fibrillation HPI 60-year-old lady with acute respiratory failure. She is unable to provide full history she is in isolation and in respiratory failure on BiPAP. History was obtained mainly by reviewing her record and visiting with her nurse. She was diagnosed with influenza A and was receiving treatment for fever and shortness of breath. This morning she deteriorated quickly and became severely short of breath. She was transferred to the intensive care unit, started on BiPAP without success then she was sedated and BiPAP was started again with better response. During that period patient developed atrial fibrillation with rapid ventricular response. I was called for evaluation Home Medications & Allergies Allergies: Coded Allergies: aspirin (Unverified Allergy, Unknown, 07/01/15) Penicillins (Unverified Adverse Reaction, Mild, N/V, 07/02/15) Home Medication List Reviewed: Yes UIP-Bnbevd-Nxoykg Hx Patient Social History Drug of Choice: DENIES Smoking Status: Current Everyday Smoker Former smoker/When Quit: Jun 07, 2012 Type Used: Cigarettes 2nd Hand Smoke Exposure: Yes Recent Hopitalizations: No Have you traveled recently?: No Alcohol Use?: No Substance type: Nicotine Immunizations Up To Date Date of Pneumonia Vaccine: Jun 21, 2012 Date of Influenza Vaccine: Jan 04, 2020 Past Medical History Discussed below Family Medical History Significant Family History: No Pertinent Family Hx Family Medical Hx Noncontributory Review of Systems-General Review of Systems Constitutional: No diaphoresis; weakness, other (Unable to provide review of system) EENTM: No blurred vision, No double vision Respiratory: short of breath Cardiovascular: No chest pain, No palpitations Gastrointestinal: No abdominal pain, No nausea, No vomiting Genitourinary: No decreased output, No discharge : No Musculoskeletal: No back pain, No joint pain Skin: change in color (Right axillary/breast); No change in hair/nails Psychiatric/Neurological: Denies Anxiety; Depressed All Other Systems Reviewed Negative Unless Noted: Yes (Negative excepted noted.) Reviewed Test Results Reviewed Test Results Lab Laboratory Tests Test 07/31/21 02:36 07/31/21 02:53 07/31/21 11:27 07/31/21 13:18 Range/Units Blood Gas Puncture Site LR Blood Gas Patient Temperature 37.7 Arterial Blood pH 7.42 7.37-7.43 Arterial Blood Partial Pressure CO2 42 35-45 MMHG Arterial Blood Partial Pressure O2 61 L 79-93 MMHG Arterial Blood HCO3 27 23-27 MMOL/L Arterial Blood Total CO2 27.7 21.0-31.0 MMOL/L Arterial Blood Oxygen Saturation 92 L 94-100 % Arterial Blood Base Excess 2.6 H -2.5-2.5 MMOL/L Bharat Test YES-POS Blood Gas Ventilator Setting NO Blood Gas Inspired Oxygen 4L White Blood Count 2.7 L 4.3-11.0 10^3/uL Red Blood Count 4.26 3.80-5.11 10^6/uL Hemoglobin 12.4 11.5-16.0 g/dL Hematocrit 36 35-52 % Mean Corpuscular Volume 85 80-99 fL Mean Corpuscular Hemoglobin 29 25-34 pg Mean Corpuscular Hemoglobin Concent 34 32-36 g/dL Red Cell Distribution Width 12.9 10.0-14.5 % Platelet Count 120 L 130-400 10^3/uL Mean Platelet Volume 9.6 9.0-12.2 fL Immature Granulocyte % (Auto) 1 % Neutrophils (%) (Auto) 59 42-75 % Lymphocytes (%) (Auto) 35 12-44 % Monocytes (%) (Auto) 5 0-12 % Eosinophils (%) (Auto) 0 0-10 % Basophils (%) (Auto) 0 0-10 % Neutrophils # (Auto) 1.6 L 1.8-7.8 10^3/uL Lymphocytes # (Auto) 1.0 1.0-4.0 10^3/uL Monocytes # (Auto) 0.1 0.0-1.0 10^3/uL Eosinophils # (Auto) 0.0 0.0-0.3 10^3/uL Basophils # (Auto) 0.0 0.0-0.1 10^3/uL Immature Granulocyte # (Auto) 0.0 0.0-0.1 10^3/uL Neutrophils % (Manual) 33 % Lymphocytes % (Manual) 33 % Monocytes % (Manual) 9 % Eosinophils % (Manual) 0 % Basophils % (Manual) 0 % Band Neutrophils 15 % Reactive Lymphocytes 10 % Smudge Cells 1 Toxic Granulation 2+ Percent Immature Platelet Fraction 3.3 0.0-7.6 % Poikilocytosis SLIGHT Sodium Level 131 L 135-145 MMOL/L Potassium Level 3.6 3.6-5.0 MMOL/L Chloride Level 95 L 98-107 MMOL/L Carbon Dioxide Level 20 L 21-32 MMOL/L Anion Gap 16 H 5-14 MMOL/L Blood Urea Nitrogen 7 7-18 MG/DL Creatinine 0.61 0.60-1.30 MG/DL Estimat Glomerular Filtration Rate 102 BUN/Creatinine Ratio 11 Glucose Level 149 H 70-105 MG/DL Calcium Level 9.6 8.5-10.1 MG/DL Corrected Calcium 10.3 H 8.5-10.1 MG/DL Total Bilirubin 0.9 0.1-1.0 MG/DL Aspartate Amino Transf (AST/SGOT) 16 5-34 U/L Alanine Aminotransferase (ALT/SGPT) 8 0-55 U/L Alkaline Phosphatase 65 40-136 U/L B-Type Natriuretic Peptide 118.5 H <100.0 PG/ML Total Protein 5.3 L 6.4-8.2 GM/DL Albumin 3.1 L 3.2-4.5 GM/DL Lactic Acid Level 4.06 *H 5.28 *H 0.50-2.00 MMOL/L Procalcitonin 5.32 H <0.10 NG/ML D-Dimer 5.49 H 0.00-0.49 UG/ML Test 07/31/21 13:21 07/31/21 15:25 Range/Units Blood Gas Puncture Site LEFT RADIAL Blood Gas Patient Temperature 37 Arterial Blood pH 7.41 7.37-7.43 Arterial Blood Partial Pressure CO2 39 35-45 MMHG Arterial Blood Partial Pressure O2 34 *L 79-93 MMHG Arterial Blood HCO3 24 23-27 MMOL/L Arterial Blood Total CO2 25.1 21.0-31.0 MMOL/L Arterial Blood Oxygen Saturation 59 L 94-100 % Arterial Blood Base Excess -0.2 -2.5-2.5 MMOL/L Bharat Test POSITIVE Blood Gas Ventilator Setting NO Blood Gas Inspired Oxygen 35 L AT 60% Lactic Acid Level 3.80 *H 0.50-2.00 MMOL/L Physical Exam Physical Exam Vital Signs Vital Signs - First Documented 07/27/21 18:36 FiO2 32 Capillary Refill : Less Than 3 Seconds Height, Weight, BMI Height: 5'7.00" Weight: 291lbs. 0.0oz. [id number]; 43.22 BMI Method:Stated General Appearance: WD/WN, Severe Distress HEENT: No Scleral Icterus (L), No Scleral Icterus (R) Respiratory: Respiratory Distress, Wheezing Cardiovascular: Irregularly Irregular, Tachycardia Gastrointestinal: Normal Bowel Sounds Extremity: Normal Inspection, Non Tender, Pedal Edema Neurologic/Psychiatric: Alert Skin: Other (Abscess in right axillary crease. Region is erythematous with bandage. Slight sanguineous drainage from site.) A/P-Cardiology Admission Diagnosis Atrial fibrillation Tachycardia Acute respiratory failure Sepsis Assessment/Plan Atrial fibrillation with rapid ventricular response secondary to respiratory failure and sepsis. Started on Cardizem bolus and a drip, we will continue to titrate and monitor closely. Acute respiratory failure, history of chronic renal insufficiency. Has influenza A. Currently on BiPAP. Managed by medical team Sepsis with lactic acidosis, receiving IV fluid. Monitor electrolytes closely COPD with acute exacerbation. Abscess to the right axilla status post I&D, MRSA. Hypertension, monitor blood pressure while on Cardizem drip Depression CHAS CAMPOS MD Jul 31, 2021 17:26
[2021-07-31] MEDS: ENOXAPARIN 120 MG/0.8 ML (LOVENOX) SQ SCH (18:50)
[2021-07-31] MEDS: traZODone 100 MG (DESYREL) TAB PO SCH (19:54)
[2021-07-31] MEDS: PHENYLEPHRINE DRIP 250 ML IV PRN (20:26)
[2021-07-31] MEDS ORDERED: [UNRECOGNIZED DRUG - REMARK] PO SCH (21:00)
[2021-07-31 23:44] LABS: BASOPHILS % (AUTO) 1 % (0-10); EOSINOPHILS % (AUTO) 0 % (0-10); HEMATOCRIT 37 % (35-52); HEMOGLOBIN 12.4 g/dL (11.5-16.0); LYMPHOCYTES # (AUTO) 0.6 10^3/uL (1.0-4.0); LYMPHOCYTES % (AUTO) 20 % (12-44); MEAN CORPUSCULAR HEMOGLOBIN 29 pg (25-34); MEAN CORPUSCULAR HGB CONC 34 g/dL (32-36); MEAN CORPUSCULAR VOLUME 86 fL (80-99); MEAN PLATELET VOLUME 10.9 fL (9.0-12.2); MONOCYTES # (AUTO) 0.1 10^3/uL (0.0-1.0); MONOCYTES % (AUTO) 4 % (0-12); NEUTROPHILS % (AUTO) 68 % (42-75); PLATELET COUNT 102 10^3/uL (130-400)
[2021-07-31 23:46] LABS: ABG BASE EXCESS -3.3 MMOL/L (-2.5-2.5); ABG OXYGEN SATURATION 98 % (94-100); ABG PCO2 46 MMHG (35-45); ABG PO2 100 MMHG (79-93); ABG TCO2 23.7 MMOL/L (21.0-31.0)
[2021-07-31 23:50] LABS: ALLENS TEST YES-POS
[2021-07-31 23:51] LABS: INSPIRED O2 75%; VENTILATOR NO
[2021-08-01] VITALS: BP 115/33
[2021-08-01] MEDS ORDERED: VANCOMYCIN 1500 MG/NS 500 ML IVPB IV SCH ×2
[2021-08-01 00:04] LABS: BAND NEUTROPHILS 12 %; LYMPHOCYTES % (MANUAL) 10 %; MONOCYTES % (MANUAL) 10 %; NEUTROPHILS % (MANUAL) 68 %; NUCLEATED RED BLOOD CELLS 5; RBC MORPH NORMAL
[2021-08-01] MEDS ORDERED: VASOPRESSIN INJECTION 20 UNIT in NS (IVPB) 100 ML IV SCH (00:30)
[2021-08-01] MEDS ORDERED: fentaNYL DRIP PRE-MIX 250 ML IV SCH (00:30)
[2021-08-01] MEDS ORDERED: DexMEDEtomidine 250 ML DRIP 250 ML IV SCH (00:30)
[2021-08-01] MEDS ORDERED: VASOPRESSIN INJECTION 20 UNIT/ML VIAL ONE (00:34)
[2021-08-01] MEDS ORDERED: NS (IVPB) 100 ML ONE (00:34)
[2021-08-01] MEDS ORDERED: NS IV 1000 ML 1,000 ML ONE (00:47)
[2021-08-01] MEDS: PHENYLEPHRINE DRIP 250 ML IV PRN ×2 (00:53→03:36)
[2021-08-01 01:00] VITALS: BP 75/58
[2021-08-01] MEDS: ENOXAPARIN 120 MG/0.8 ML (LOVENOX) SQ SCH (01:02)
[2021-08-01 01:14] VITALS: BP 92/61
[2021-08-01] MEDS: RT-ALBUTEROL/IPRATROPIUM 3 ML (DUONEB) VIAL INH SCH (01:29)
[2021-08-01] MEDS: methylPREDNISolone 40 MG/ML (Solu-MEDROL) VIAL IV SCH (01:30)
[2021-08-01 02:00] VITALS: BP 79/63
--- NOTE | 2021-08-01 02:04 | Anesthesia-Procedure Note ---
Procedures/Interventions Procedure Start/Stop/Diagnosis Date of Procedure: Aug 01, 2021 Start Time: 01:00 Referring Physician: EICU Preprocedural Diagnosis: Respiratory Failure Brief History Called to intubate patient per EICU request. RT & RN at bedside, brief report obtained. Pt currently wearing bipap, very labored respiratory effort. Rapid sequence induction with easy intubation. No period of desaturation. Patient already requiring vasopressor support, transient hypotension noted from medications. Nursing staff titrating up gtt rates as needed. Stop Time: 01:09 Intubation RSI: Yes 100% pre-Ox, [id number]: Yes Intubation Method: orotracheal (7.5) Videoscope used: Yes (glidescope 3 ) Medications: Propofol (70mg), Succinylcholine (100mg) Mask Ventilation: positive Positive End Tide CO2: Yes Breath Sounds after Intubation: bilateral-equal ETT Securred @ (cm): 21 Intubated with ease: Yes Intubation Complications: no complications Post Intubation Xray-done: Yes (pending) Care turned over to: ICU/RT staff at bedside FRANSICO BARILLAS CRNA Aug 01, 2021 02:04
[2021-08-01 03:00] VITALS: BP 68/31
--- NOTE | 2021-08-01 03:02 | Anesthesia-Procedure Note ---
Procedures/Interventions Procedure Start/Stop/Diagnosis Date of Procedure: Aug 01, 2021 Start Time: 01:55 Stop Time: 02:55 Arterial Line Arterial Line Catheter: 22G (Mutiple attempts made to establish arterial line access. Able to access radial artery but unable to thread catheter. Pt on high dose vasopressors, upper extremities cold and mottled. ) Type: Radial Location: Left, Right Procedure: prepped, draped in sterile fashion, no immediate complications, post procedure area cleaned, post procedure dressing applied FRANSICO BARILLAS CRNA Aug 01, 2021 03:02
[2021-08-01 03:06] LABS: BASOPHILS % (AUTO) 1 % (0-10); EOSINOPHILS % (AUTO) 0 % (0-10); HEMATOCRIT 33 % (35-52); HEMOGLOBIN 10.8 g/dL (11.5-16.0); LYMPHOCYTES # (AUTO) 1.3 10^3/uL (1.0-4.0); LYMPHOCYTES % (AUTO) 31 % (12-44); MEAN CORPUSCULAR HEMOGLOBIN 29 pg (25-34); MEAN CORPUSCULAR HGB CONC 33 g/dL (32-36); MEAN CORPUSCULAR VOLUME 88 fL (80-99); MEAN PLATELET VOLUME 10.6 fL (9.0-12.2); MONOCYTES # (AUTO) 0.1 10^3/uL (0.0-1.0); MONOCYTES % (AUTO) 2 % (0-12); NEUTROPHILS # (AUTO) 2.5 10^3/uL (1.8-7.8); NEUTROPHILS % (AUTO) 59 % (42-75); PLATELET COUNT 61 10^3/uL (130-400); WHITE BLOOD COUNT 4.3 10^3/uL (4.3-11.0)
[2021-08-01 03:08] LABS: ABG BASE EXCESS -9.5 MMOL/L (-2.5-2.5); ABG OXYGEN SATURATION 79 % (94-100); ABG PCO2 43 MMHG (35-45); ABG PO2 48 MMHG (79-93); ABG TCO2 18.5 MMOL/L (21.0-31.0)
[2021-08-01 03:09] LABS: ABG PH 7.21 (7.37-7.43)
[2021-08-01 03:10] LABS: INSPIRED O2 90%; VENTILATOR YES
[2021-08-01 03:13] LABS: ABG BASE EXCESS -6.6 MMOL/L (-2.5-2.5); ABG OXYGEN SATURATION 86 % (94-100); ABG PCO2 46 MMHG (35-45); ABG PO2 56 MMHG (79-93)
[2021-08-01 03:16] LABS: ABG PH 7.25 (7.37-7.43)
[2021-08-01 03:17] LABS: ALBUMIN 1.6 GM/DL (3.2-4.5); POTASSIUM 4.6 MMOL/L (3.6-5.0)
[2021-08-01 03:17] LABS: INSPIRED O2 90%; VENTILATOR YES
[2021-08-01 03:21] LABS: BILIRUBIN,TOTAL 0.6 MG/DL (0.1-1.0)
[2021-08-01 03:23] LABS: CREATININE SERUM 1.73 MG/DL (0.60-1.30); PHOSPHORUS 3.1 MG/DL (2.3-4.7)
[2021-08-01 03:26] LABS: MAGNESIUM 1.3 MG/DL (1.6-2.4)
[2021-08-01] MEDS ORDERED: NOREPINEPHRINE 8 MG/250 ML 250 ML IV ONE (03:26)
[2021-08-01] MEDS ORDERED: SODIUM BICARB 8.4% 50 MEQ/50 ML (ABBOTT) SYR IV ONE (03:30)
[2021-08-01] MEDS ORDERED: SODIUM BICARB 8.4% 50 MEQ/50 ML (ABBOTT) SYR ONE (03:32)
[2021-08-01 03:37] LABS: CALCIUM 5.9 MG/DL (8.5-10.1)
[2021-08-01 03:38] VITALS: BP 89/38
[2021-08-01] MEDS: NS IV 1000 ML 1,000 ML IV SCH (03:40)
[2021-08-01] MEDS ORDERED: NOREPINEPHRINE 8 MG/250 ML 250 ML IV SCH (03:45)
[2021-08-01] MEDS ORDERED: CALCIUM GLUC. 10% 4.65 MEQ/10 ML VIAL IV ONE (03:45)
[2021-08-01] MEDS ORDERED: CALC GLUC 1 GM/100 ML IVPB 100 ML IV ONE ×2 (03:49→04:00)
[2021-08-01] MEDS ORDERED: EPINEPHrine (OMNICELL DRIP KIT ONLY) 1 MG/ML AMP ONE (03:51)
--- NOTE | 2021-08-01 03:52 | Tele-ICU Progress Note ---
Progress Note intubated early am for hypoxemia and respiratory distress. Requiring high FI02 and PEEP to maintain saturation. ABG shows mixed metabolic and resp acidosis. Now requiring 4 pressors to maintain BP Laboratory Tests 07/31/21 23:35 08/01/21 02:52 Focused Exam Lactate Level 07/31/21 18:00: Lactic Acid Level 3.45*H 07/31/21 19:59: Lactic Acid Level 2.94*H 07/31/21 23:37: Lactic Acid Level 1.80 Height, Weight, BMI Height: 5'7.00" Weight: 291lbs. 0.0oz. 131.706319do; 43.22 BMI Method:Stated JONES CRUZ MD Aug 01, 2021 03:52
[2021-08-01] MEDS ORDERED: NORMAL SALINE 250 ML ONE (03:53)
[2021-08-01] MEDS ORDERED: EPINEPHrine 1 MG INJECTION 4 MG in NS (IVPB) 246 ML IV SCH (04:00)
--- NOTE | 2021-08-01 05:03 | Inpatient Code Blue ---
General Chief Complaint: Respiratory Problems Stated Complaint: INFLUENZA A, COPD EXAC Nursing Triage Note: PT BROGUHT IN BY [facility] FROM HOME WITH COMPLAINT OF SOA. PT WENT TO [facility] A FEW DAYS AGO FOR SOA AND TESTED NEGATIVE FOR COVID. HX OF COPD. FEVER FOR THE LAST FEW DAYS. Source: RN/, old records Exam Limitations: clinical condition (Orotracheally intubated) History of Present Illness Date Seen by Provider: Aug 01, 2021 Time Seen by Provider: 03:45 Initial Comments We didER staff was summonsed to the ICU for a rapid response on urinating danny taylor. 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 Patient had oxygen desaturation with a okay waveform at 89 to 91% on 100% FiO2, tidal volume 500, rate of 15 PEEP of 10. She had good breath sounds bilaterally and was in the ICU intubated for influenza A. She had fluid going at 100 an hour. She was mottled and unresponsive. Family was in the waiting room. The nurse livestock yard supervisor was sent's speak to the family and tell them that the patient was going to and if they wish us to code her we would do this or if they wish her to be allowed to go in peace we would respect that wish. They were to come to the room to be with the patient if they wanted to. We then noticed the patient developed several runs approximately 3 to 6 seconds of ventricular tachycardia. 300 mg amiodarone bolus was called for. A push dose of half milligram epinephrine was called for. She did still have a barely palpable pulse for about 20 seconds and then the pulse was lost. We initiated CPR, compressions open the IV fluids up to bolus and ordered a milligram of epinephrine IV. We had reviewed the labs on the chart and ABG most recent demonstrated pH 7.2 and a continued downward trend of the pH as well as the PaO2 and an upward trend of the PaCO2. It was noted to both staff and the family by this provider that the patient's prognosis was exquisitely poor and was expected to in minutes. Allergies and Home Medications Allergies Coded Allergies: aspirin (Unverified Allergy, Unknown, 07/01/15) Penicillins (Unverified Adverse Reaction, Mild, N/V, 07/02/15) Patient Home Medication List Home Medication List Reviewed: Yes Acetaminophen (Tylenol Extra Strength) 500 Mg Tablet, 1,000 MG PO Q6H PRN for PAIN-MILD (1-4), (Reported) Entered as Reported by: GAIL KUO on 07/28/21 1048 Last Action: Reviewed Albuterol Sulfate (Proair Hfa) 1 Puff Puff, 2 PUFF IH Q4H PRN for SHORTNESS OF BREATH, (Reported) Entered as Reported by: MARYANN GARCIA on 08/31/20626 Last Action: Reviewed Albuterol Sulfate (Albuterol Sulfate) 2.5 Mg/3 Ml (0.083 %) Vial.neb, 2.5 MG INH Q4H PRN for SHORTNESS OF BREATH, (Reported) Entered as Reported by: GAIL KUO on 07/28/21 1037 Last Action: Reviewed Atorvastatin Calcium (Atorvastatin Calcium) 40 Mg Tablet, 40 MG PO DAILY, (Reported) Entered as Reported by: GAIL KUO on 07/28/21 1031 Last Action: Reviewed Budesonide/Glycopyr/Formoterol (Breztri Aerosphere Inhaler) 160 Mcg-9 Mcg-4.8 Mcg/Actuation Hfa.aer.ad, 1 PUFF PO BID, (Reported) Entered as Reported by: GAIL KUO on 07/28/21 1038 Last Action: Reviewed Diphenhydramine HCl (Benadryl) 25 Mg Capsule, 25 MG PO HS, (Reported) Entered as Reported by: GAIL KUO on 07/28/21 1047 Last Action: Reviewed Lamotrigine (Lamotrigine) 200 Mg Tablet, 200 MG PO HS, (Reported) Entered as Reported by: MARYANN GARCIA on 08/31/20622 Last Action: Converted Lisinopril (Lisinopril) 10 Mg Tablet, 10 MG PO DAILY, (Reported) Entered as Reported by: KHRIS GONZALES on 06/07/19 1513 Last Action: Reviewed Montelukast Sodium (Montelukast Sodium) 10 Mg Tablet, 10 MG PO DAILY, (Reported) Entered as Reported by: MARYANN GARCIA on 08/31/20622 Last Action: Reviewed Oxybutynin Chloride (Oxybutynin Chloride) 5 Mg Tablet, 5 MG PO BID, (Reported) Entered as Reported by: MARYANN GARCIA on 08/31/20622 Last Action: Continued Pantoprazole Sodium (Pantoprazole Sodium) 40 Mg Tablet.dr, 40 MG PO DAILY, (Reported) Entered as Reported by: MARYANN GARCIA on 08/31/20626 Last Action: Reviewed Trazodone HCl (Trazodone HCl) 100 Mg Tablet, 200 MG PO HS, (Reported) Entered as Reported by: GAIL KUO on 07/28/21 104 Last Action: Reviewed [Latuda] , 60 MG PO HS, (Reported) Entered as Reported by: GAIL KUO on 07/28/21 103 Last Action: Converted Discontinued Medications Atorvastatin Calcium (Atorvastatin Calcium) 20 Mg Tablet, 40 MG PO HS, (Reported) Discontinued Reason: Prescription changed Entered as Reported by: KHRIS GONZALES on 06/07/19 1513 Last Action: Edited Cefdinir (Cefdinir) 300 Mg Capsule, 300 MG PO BID Discontinued Reason: No Longer Taking Prescribed by: GERARDO IBARRA on 09/02/20 114 Last Action: Discontinued Diphenhydramine HCl (Benadryl Allergy) 25 Mg Tablet, 25 MG PO HS, (Reported) Discontinued Reason: No Longer Taking Entered as Reported by: PELON VENTURA on 08/31/20644 Last Action: Discontinued Fluticasone Propionate (Flonase Allergy Relief) 9.9 Ml [place].susp, 2 SPRAY NS BID, (Reported) Discontinued Reason: No Longer Taking Entered as Reported by: PELON VENTURA on 08/31/20644 Last Action: Discontinued Lurasidone HCl (Latuda) 80 Mg Tablet, 80 MG PO DAILY, (Reported) Discontinued Reason: Prescription changed Entered as Reported by: MARYANN GARCIA on 08/31/20622 Last Action: Reviewed Lurasidone HCl (Latuda) 40 Mg Tablet, 60 MG PO DAILY Discontinued Reason: No Longer Taking Prescribed by: DELIA MARRUFO on 07/27/21 1704 Last Action: Discontinued Prednisone (Prednisone) 10 Mg Tab, (Reported) Discontinued Reason: No Longer Taking Entered as Reported by: MARYANN GARCIA on 08/31/20622 Last Action: Discontinued Prednisone (Prednisone) 10 Mg Tab.ds.pk, 10 MG PO DAILY Discontinued Reason: No Longer Taking Prescribed by: GERARDO IBARRA on 09/02/20 1142 Last Action: Discontinued Promethazine HCl/Codeine (Prometh-Codein 6.25-10 mg/5 ml) 5 Ml Syrup, 5 ML PO Q4H Discontinued Reason: No Longer Taking Prescribed by: GERARDO IBARRA on 09/02/20 1148 Last Action: Discontinued Trazodone HCl (Trazodone HCl) 150 Mg Tablet, 100 MG PO HS, (Reported) Discontinued Reason: Prescription changed Entered as Reported by: MARYANN GARCIA on 08/31/20 06 Last Action: Last Taken Edited Physical Exam Vital Signs Vital Signs - First Documented 07/27/21 18:36 FiO2 32 Capillary Refill : Less Than 3 Seconds Height, Weight, BMI Height: 5'7.00" Weight: 291lbs. 0.0oz. [id number]; 43.22 BMI Method:Stated General Appearance: severe distress, obese Eyes: Bilateral Eye PERRL (Sluggish, 3 mm symmetric) Ears, Nose, Throat: other (Orotracheally intubated with moist oral mucosa) Respiratory: respiratory distress (FiO2 100%, sat 89%, orotracheally intubated.), decreased breath sounds, rales Cardiovascular: other (Softly palpable 1 out of 4 carotid pulse, tachycardia 130s to 140s, regular) Gastrointestinal: soft, no organomegaly, abnormal bowel sounds (Absent) Neurologic/Psychiatric: other (GCS 3 T) Skin: mottled, other (Large, decimeter long serosanguineous bulla over the lateral right breast in the mid axillary line.) Procedures/Interventions Date of ETT Placement: Aug 01, 2021 Time of ETT Placement: 0100 Intubation Method: orotracheal (7.5) Tube Size: 7.50 Medications: Propofol (70mg), Succinylcholine (100mg) Positive End Tide CO2: Yes Breath Sounds after Intubation: bilateral-equal Intubation Complications: no complications Post Intubation Xray: Yes (pending) Critical Care Note Critical Care Start Time: 03:45 Stop Time: 04:07 Total Time (minutes) 22 mins Date of : Aug 01, 2021 Time of : 04:07 Progress Patient was chemically being coded and compressions were initiated when we lost the pulse at 0404. A single shock was delivered of 120 J for ventricular tachycardia. Compressions were resumed. Her liter of fluids was opened at flush. The 300 mg amiodarone and 1 mg epinephrine boluses were delivered. Pulse check was ordered at 0407 and noted to be PEA. The family at bedside requested that we discontinue CPR as they did not want to see her suffer any longer. Their wishes were respected. We had communicated the poor prognosis to the family and discontinued our resuscitative efforts at 0407. Monitors were silenced and turned off. Drips were stopped. IV fluids were stopped. We requested that web applications programmer be contacted. Progress/Results/Core Measures Results/Orders Lab Results Laboratory Tests Test 07/27/21 10:35 07/27/21 10:42 07/27/21 10:54 07/28/21 05:48 Range/Units Influenza Type A (RT-PCR) Detected H Not Detecte Influenza Type B (RT-PCR) Not Detected Not Detecte SARS-CoV-2 RNA (RT-PCR) Not Detected Not Detecte White Blood Count 7.8 10.8 4.3-11.0 10^3/uL Red Blood Count 4.34 4.06 3.80-5.11 10^6/uL Hemoglobin 12.8 11.9 11.5-16.0 g/dL Hematocrit 37 34 L 35-52 % Mean Corpuscular Volume 85 85 80-99 fL Mean Corpuscular Hemoglobin 30 29 25-34 pg Mean Corpuscular Hemoglobin Concent 35 35 32-36 g/dL Red Cell Distribution Width 12.6 12.6 10.0-14.5 % Platelet Count 120 L 122 L 130-400 10^3/uL Mean Platelet Volume 9.4 9.8 9.0-12.2 fL Immature Granulocyte % (Auto) 0 1 % Neutrophils (%) (Auto) 72 81 H 42-75 % Lymphocytes (%) (Auto) 17 14 12-44 % Monocytes (%) (Auto) 11 4 0-12 % Eosinophils (%) (Auto) 0 0 0-10 % Basophils (%) (Auto) 0 0 0-10 % Neutrophils # (Auto) 5.6 8.8 H 1.8-7.8 10^3/uL Lymphocytes # (Auto) 1.3 1.5 1.0-4.0 10^3/uL Monocytes # (Auto) 0.8 0.5 0.0-1.0 10^3/uL Eosinophils # (Auto) 0.0 0.0 0.0-0.3 10^3/uL Basophils # (Auto) 0.0 0.0 0.0-0.1 10^3/uL Immature Granulocyte # (Auto) 0.0 0.1 0.0-0.1 10^3/uL Percent Immature Platelet Fraction 3.1 2.4 0.0-7.6 % Prothrombin Time 12.7 12.2-14.7 SEC INR Comment 0.9 0.8-1.4 Activated Partial Thromboplast Time 30 24-35 SEC Sodium Level 130 L 140 135-145 MMOL/L Potassium Level 2.9 L 3.6 3.6-5.0 MMOL/L Chloride Level 93 L 104 98-107 MMOL/L Carbon Dioxide Level 24 23 21-32 MMOL/L Anion Gap 13 13 5-14 MMOL/L Blood Urea Nitrogen 4 L 10 7-18 MG/DL Creatinine 0.80 0.72 0.60-1.30 MG/DL Estimat Glomerular Filtration Rate 84 95 BUN/Creatinine Ratio 5 14 Glucose Level 125 H 152 H 70-105 MG/DL Lactic Acid Level 1.21 0.50-2.00 MMOL/L Calcium Level 9.2 9.3 8.5-10.1 MG/DL Corrected Calcium 9.4 8.5-10.1 MG/DL Total Bilirubin 0.9 0.1-1.0 MG/DL Aspartate Amino Transf (AST/SGOT) 17 5-34 U/L Alanine Aminotransferase (ALT/SGPT) 16 0-55 U/L Alkaline Phosphatase 80 40-136 U/L C-Reactive Protein High Sensitivity 9.92 H 0.00-0.50 MG/DL Total Protein 5.6 L 6.4-8.2 GM/DL Albumin 3.7 3.2-4.5 GM/DL Procalcitonin 0.09 <0.10 NG/ML Urine Color YELLOW Urine Clarity SL CLOUDY Urine pH 6.0 5-9 Urine Specific [place] 1.015 L 1.016-1.022 Urine Protein TRACE H NEGATIVE Urine Glucose (UA) NEGATIVE NEGATIVE Urine Ketones NEGATIVE NEGATIVE Urine Nitrite NEGATIVE NEGATIVE Urine Bilirubin NEGATIVE NEGATIVE Urine Urobilinogen 1.0 < = 1.0 MG/DL Urine Leukocyte Esterase 1+ H NEGATIVE Urine RBC (Auto) TRACE-I H NEGATIVE Urine RBC 0-2 /HPF Urine WBC 2-5 /HPF Urine Crystals NONE /LPF Urine Bacteria LARGE H /HPF Urine Casts NONE /LPF Urine Mucus NEGATIVE /LPF Urine Culture Indicated CULTURE PENDING Test 07/29/21 06:13 07/30/21 05:43 07/31/21 02:25 07/31/21 02:36 Range/Units White Blood Count 11.2 H 7.4 4.3-11.0 10^3/uL Red Blood Count 4.03 4.00 3.80-5.11 10^6/uL Hemoglobin 11.7 11.6 11.5-16.0 g/dL Hematocrit 35 35 35-52 % Mean Corpuscular Volume 87 87 80-99 fL Mean Corpuscular Hemoglobin 29 29 25-34 pg Mean Corpuscular Hemoglobin Concent 33 34 32-36 g/dL Red Cell Distribution Width 12.9 13.2 10.0-14.5 % Platelet Count 132 132 130-400 10^3/uL Mean Platelet Volume 10.0 10.0 9.0-12.2 fL Immature Granulocyte % (Auto) 8 1 % Neutrophils (%) (Auto) 73 75 42-75 % Lymphocytes (%) (Auto) 12 19 12-44 % Monocytes (%) (Auto) 7 5 0-12 % Eosinophils (%) (Auto) 0 0 0-10 % Basophils (%) (Auto) 0 0 0-10 % Neutrophils # (Auto) 8.2 H 5.6 1.8-7.8 10^3/uL Lymphocytes # (Auto) 1.4 1.4 1.0-4.0 10^3/uL Monocytes # (Auto) 0.7 0.4 0.0-1.0 10^3/uL Eosinophils # (Auto) 0.0 0.0 0.0-0.3 10^3/uL Basophils # (Auto) 0.0 0.0 0.0-0.1 10^3/uL Immature Granulocyte # (Auto) 0.9 H 0.0 0.0-0.1 10^3/uL Sodium Level 140 136 135-145 MMOL/L Potassium Level 3.8 3.9 3.6-5.0 MMOL/L Chloride Level 105 100 98-107 MMOL/L Carbon Dioxide Level 23 23 21-32 MMOL/L Anion Gap 12 13 5-14 MMOL/L Blood Urea Nitrogen 8 5 L 7-18 MG/DL Creatinine 0.60 0.61 0.60-1.30 MG/DL Estimat Glomerular Filtration Rate 102 102 BUN/Creatinine Ratio 13 8 Glucose Level 141 H 143 H 70-105 MG/DL Calcium Level 9.3 9.4 8.5-10.1 MG/DL Corrected Calcium 9.9 10.0 8.5-10.1 MG/DL Total Bilirubin 0.3 0.6 0.1-1.0 MG/DL Aspartate Amino Transf (AST/SGOT) 20 16 5-34 U/L Alanine Aminotransferase (ALT/SGPT) 17 17 0-55 U/L Alkaline Phosphatase 72 58 40-136 U/L Total Protein 5.1 L 5.3 L 6.4-8.2 GM/DL Albumin 3.2 3.2 3.2-4.5 GM/DL Smear Scan YES Lactic Acid Level 2.21 *H 0.50-2.00 MMOL/L Blood Gas Puncture Site LR Blood Gas Patient Temperature 37.7 Arterial Blood pH 7.42 7.37-7.43 Arterial Blood Partial Pressure CO2 42 35-45 MMHG Arterial Blood Partial Pressure O2 61 L 79-93 MMHG Arterial Blood HCO3 27 23-27 MMOL/L Arterial Blood Total CO2 27.7 21.0-31.0 MMOL/L Arterial Blood Oxygen Saturation 92 L 94-100 % Arterial Blood Base Excess 2.6 H -2.5-2.5 MMOL/L Bharat Test YES-POS Blood Gas Ventilator Setting NO Blood Gas Inspired Oxygen 4L Test 07/31/21 02:53 07/31/21 11:27 07/31/21 13:18 07/31/21 13:21 Range/Units White Blood Count 2.7 L 4.3-11.0 10^3/uL Red Blood Count 4.26 3.80-5.11 10^6/uL Hemoglobin 12.4 11.5-16.0 g/dL Hematocrit 36 35-52 % Mean Corpuscular Volume 85 80-99 fL Mean Corpuscular Hemoglobin 29 25-34 pg Mean Corpuscular Hemoglobin Concent 34 32-36 g/dL Red Cell Distribution Width 12.9 10.0-14.5 % Platelet Count 120 L 130-400 10^3/uL Mean Platelet Volume 9.6 9.0-12.2 fL Immature Granulocyte % (Auto) 1 % Neutrophils (%) (Auto) 59 42-75 % Lymphocytes (%) (Auto) 35 12-44 % Monocytes (%) (Auto) 5 0-12 % Eosinophils (%) (Auto) 0 0-10 % Basophils (%) (Auto) 0 0-10 % Neutrophils # (Auto) 1.6 L 1.8-7.8 10^3/uL Lymphocytes # (Auto) 1.0 1.0-4.0 10^3/uL Monocytes # (Auto) 0.1 0.0-1.0 10^3/uL Eosinophils # (Auto) 0.0 0.0-0.3 10^3/uL Basophils # (Auto) 0.0 0.0-0.1 10^3/uL Immature Granulocyte # (Auto) 0.0 0.0-0.1 10^3/uL Neutrophils % (Manual) 33 % Lymphocytes % (Manual) 33 % Monocytes % (Manual) 9 % Eosinophils % (Manual) 0 % Basophils % (Manual) 0 % Band Neutrophils 15 % Reactive Lymphocytes 10 % Smudge Cells 1 Toxic Granulation 2+ Percent Immature Platelet Fraction 3.3 0.0-7.6 % Poikilocytosis SLIGHT Sodium Level 131 L 135-145 MMOL/L Potassium Level 3.6 3.6-5.0 MMOL/L Chloride Level 95 L 98-107 MMOL/L Carbon Dioxide Level 20 L 21-32 MMOL/L Anion Gap 16 H 5-14 MMOL/L Blood Urea Nitrogen 7 7-18 MG/DL Creatinine 0.61 0.60-1.30 MG/DL Estimat Glomerular Filtration Rate 102 BUN/Creatinine Ratio 11 Glucose Level 149 H 70-105 MG/DL Calcium Level 9.6 8.5-10.1 MG/DL Corrected Calcium 10.3 H 8.5-10.1 MG/DL Total Bilirubin 0.9 0.1-1.0 MG/DL Aspartate Amino Transf (AST/SGOT) 16 5-34 U/L Alanine Aminotransferase (ALT/SGPT) 8 0-55 U/L Alkaline Phosphatase 65 40-136 U/L B-Type Natriuretic Peptide 118.5 H <100.0 PG/ML Total Protein 5.3 L 6.4-8.2 GM/DL Albumin 3.1 L 3.2-4.5 GM/DL Lactic Acid Level 4.06 *H 5.28 *H 0.50-2.00 MMOL/L Procalcitonin 5.32 H <0.10 NG/ML D-Dimer 5.49 H 0.00-0.49 UG/ML Blood Gas Puncture Site LEFT RADIAL Blood Gas Patient Temperature 37 Arterial Blood pH 7.41 7.37-7.43 Arterial Blood Partial Pressure CO2 39 35-45 MMHG Arterial Blood Partial Pressure O2 34 *L 79-93 MMHG Arterial Blood HCO3 24 23-27 MMOL/L Arterial Blood Total CO2 25.1 21.0-31.0 MMOL/L Arterial Blood Oxygen Saturation 59 L 94-100 % Arterial Blood Base Excess -0.2 -2.5-2.5 MMOL/L Bharat Test POSITIVE Blood Gas Ventilator Setting NO Blood Gas Inspired Oxygen 35 L AT 60% Test 07/31/21 15:25 07/31/21 17:36 07/31/21 18:00 07/31/21 19:59 Range/Units Lactic Acid Level 3.80 *H 3.45 *H 2.94 *H 0.50-2.00 MMOL/L Glucometer 127 H 70-110 MG/DL Test 07/31/21 22:23 07/31/21 23:30 07/31/21 23:35 07/31/21 23:37 Range/Units Glucometer 133 H 70-110 MG/DL Blood Gas Puncture Site RIGHT RADIAL Blood Gas Patient Temperature 36.0 Arterial Blood pH 7.30 *L 7.37-7.43 Arterial Blood Partial Pressure CO2 46 H 35-45 MMHG Arterial Blood Partial Pressure O2 100 H 79-93 MMHG Arterial Blood HCO3 22 L 23-27 MMOL/L Arterial Blood Total CO2 23.7 21.0-31.0 MMOL/L Arterial Blood Oxygen Saturation 98 94-100 % Arterial Blood Base Excess -3.3 L -2.5-2.5 MMOL/L Bharat Test YES-POS Blood Gas Ventilator Setting NO Blood Gas Inspired Oxygen 75% White Blood Count 3.0 L 4.3-11.0 10^3/uL Red Blood Count 4.29 3.80-5.11 10^6/uL Hemoglobin 12.4 11.5-16.0 g/dL Hematocrit 37 35-52 % Mean Corpuscular Volume 86 80-99 fL Mean Corpuscular Hemoglobin 29 25-34 pg Mean Corpuscular Hemoglobin Concent 34 32-36 g/dL Red Cell Distribution Width 13.2 10.0-14.5 % Platelet Count 102 L 130-400 10^3/uL Mean Platelet Volume 10.9 9.0-12.2 fL Immature Granulocyte % (Auto) 7 % Neutrophils (%) (Auto) 68 42-75 % Lymphocytes (%) (Auto) 20 12-44 % Monocytes (%) (Auto) 4 0-12 % Eosinophils (%) (Auto) 0 0-10 % Basophils (%) (Auto) 1 0-10 % Neutrophils # (Auto) 2.0 1.8-7.8 10^3/uL Lymphocytes # (Auto) 0.6 L 1.0-4.0 10^3/uL Monocytes # (Auto) 0.1 0.0-1.0 10^3/uL Eosinophils # (Auto) 0.0 0.0-0.3 10^3/uL Basophils # (Auto) 0.0 0.0-0.1 10^3/uL Immature Granulocyte # (Auto) 0.2 H 0.0-0.1 10^3/uL Neutrophils % (Manual) 68 % Lymphocytes % (Manual) 10 % Monocytes % (Manual) 10 % Band Neutrophils 12 % Nucleated Red Blood Cells 5 Blood Morphology Comment NORMAL Lactic Acid Level 1.80 0.50-2.00 MMOL/L Test 08/01/21 02:52 08/01/21 03:05 08/01/21 03:08 Range/Units White Blood Count 4.3 4.3-11.0 10^3/uL Red Blood Count 3.72 L 3.80-5.11 10^6/uL Hemoglobin 10.8 L 11.5-16.0 g/dL Hematocrit 33 L 35-52 % Mean Corpuscular Volume 88 80-99 fL Mean Corpuscular Hemoglobin 29 25-34 pg Mean Corpuscular Hemoglobin Concent 33 32-36 g/dL Red Cell Distribution Width 13.3 10.0-14.5 % Platelet Count 61 L 130-400 10^3/uL Mean Platelet Volume 10.6 9.0-12.2 fL Immature Granulocyte % (Auto) 7 % Neutrophils (%) (Auto) 59 42-75 % Lymphocytes (%) (Auto) 31 12-44 % Monocytes (%) (Auto) 2 0-12 % Eosinophils (%) (Auto) 0 0-10 % Basophils (%) (Auto) 1 0-10 % Neutrophils # (Auto) 2.5 1.8-7.8 10^3/uL Lymphocytes # (Auto) 1.3 1.0-4.0 10^3/uL Monocytes # (Auto) 0.1 0.0-1.0 10^3/uL Eosinophils # (Auto) 0.0 0.0-0.3 10^3/uL Basophils # (Auto) 0.0 0.0-0.1 10^3/uL Immature Granulocyte # (Auto) 0.3 H 0.0-0.1 10^3/uL Sodium Level 132 L 135-145 MMOL/L Potassium Level 4.6 3.6-5.0 MMOL/L Chloride Level 107 98-107 MMOL/L Carbon Dioxide Level 13 L 21-32 MMOL/L Anion Gap 12 5-14 MMOL/L Blood Urea Nitrogen 23 H 7-18 MG/DL Creatinine 1.73 H 0.60-1.30 MG/DL Estimat Glomerular Filtration Rate 33 BUN/Creatinine Ratio 13 Glucose Level 96 70-105 MG/DL Calcium Level 5.9 #*L 8.5-10.1 MG/DL Corrected Calcium 7.8 L 8.5-10.1 MG/DL Phosphorus Level 3.1 2.3-4.7 MG/DL Magnesium Level 1.3 L 1.6-2.4 MG/DL Total Bilirubin 0.6 0.1-1.0 MG/DL Aspartate Amino Transf (AST/SGOT) 140 H 5-34 U/L Alanine Aminotransferase (ALT/SGPT) 26 0-55 U/L Alkaline Phosphatase 41 40-136 U/L Troponin I 0.102 H <0.028 NG/ML Total Protein 3.0 L 6.4-8.2 GM/DL Albumin 1.6 #L 3.2-4.5 GM/DL Thyroid Stimulating Hormone (TSH) 0.45 0.35-4.94 UIU/ML Blood Gas Puncture Site NOT INDICATED NOT INDICATED Blood Gas Patient Temperature 36.0 36.0 Arterial Blood pH 7.25 *L 7.21 *L 7.37-7.43 Arterial Blood Partial Pressure CO2 46 H 43 35-45 MMHG Arterial Blood Partial Pressure O2 56 L 48 L 79-93 MMHG Arterial Blood HCO3 20 L 17 *L 23-27 MMOL/L Arterial Blood Total CO2 21.0 18.5 L 21.0-31.0 MMOL/L Arterial Blood Oxygen Saturation 86 L 79 L 94-100 % Arterial Blood Base Excess -6.6 L -9.5 L -2.5-2.5 MMOL/L Bharat Test NA NA Blood Gas Ventilator Setting YES YES Blood Gas Inspired Oxygen 90% 90% Micro Results Microbiology 07/29/21 Gram Stain - Final, Resulted 07/29/21 Wound Culture - Preliminary, Resulted Staphylococcus aureus 07/27/21 Urine Culture - Final, Complete Escherichia coli 07/27/21 Blood Culture - Final, Complete Staphylococcus hominis Staphylococcus hominis#2 See Comments 07/27/21 Blood Culture - Preliminary, Resulted No growth Medications Given in ED Current Medications Medications Dose Ordered Sig/Brian Route Start Time Stop Time Status Last Admin Dose Admin Phenylephrine HCl 250 ml @ 0 mls/hr Q0M PRN IV 07/31/21 20:30 08/01/21 03:36 400 MLS/HR Sodium Bicarbonate 50 meq ONCE ONCE IV 08/01/21 03:30 08/01/21 03:43 DC 08/01/21 03:33 50 MEQ Vital Signs/I&O 07/27/21 07/27/21 07/27/21 07/27/21 10:30 10:30 12:35 13:00 Temp 38.8 36.5 Pulse 121 106 Resp 29 15 B/P (MAP) 99/68 (78) 100/59 Pulse Ox 92 91 O2 Delivery Nasal Cannula Nasal Cannula Room Air O2 Flow Rate 4.00 4.00 07/27/21 07/27/21 07/27/21 07/27/21 13:33 14:24 15:36 18:36 Temp 36.5 36.6 38.8 Pulse 102 91 121 Resp 24 20 B/P (MAP) 110/70 (83) 102/52 (69) Pulse Ox 89 92 97 92 O2 Delivery Nasal Cannula Nasal Cannula Nasal Cannula O2 Flow Rate 4.00 4.00 4.00 FiO2 32 07/27/21 07/27/21 07/27/21 07/27/21 19:12 20:00 20:14 22:12 Temp 36.6 Pulse 87 Resp 20 B/P (MAP) 100/50 (67) Pulse Ox 92 96 96 O2 Delivery Nasal Cannula Nasal Cannula Nasal Cannula Nasal Cannula O2 Flow Rate 4.00 4.00 4.00 4.00 07/28/21 07/28/21 07/28/21 07/28/21 00:45 04:56 05:08 07:30 Temp 36.5 36.3 36.5 Pulse 82 76 80 Resp 19 17 18 B/P (MAP) 95/48 (64) 110/56 (74) 121/79 (93) Pulse Ox 90 91 95 93 O2 Delivery Nasal Cannula Nasal Cannula Nasal Cannula Nasal Cannula O2 Flow Rate 4.00 4.00 4.00 4.00 07/28/21 07/28/21 07/28/21 07/28/21 07:50 07:58 08:00 11:37 Temp 36.5 35.9 Pulse 80 82 Resp 18 18 B/P (MAP) 121/79 (93) 101/57 (72) Pulse Ox 92 93 94 O2 Delivery Nasal Cannula Nasal Cannula Nasal Cannula Nasal Cannula O2 Flow Rate 4.00 4.00 4.00 4.00 07/28/21 07/28/21 07/28/21 07/28/21 15:01 16:30 18:34 20:00 Temp 36.6 Pulse 88 Resp 20 B/P (MAP) 106/65 (79) Pulse Ox 92 94 94 O2 Delivery Nasal Cannula Nasal Cannula Nasal Cannula Nasal Cannula O2 Flow Rate 4.00 4.00 4.00 4.00 07/28/21 07/28/21 07/29/21 07/29/21 20:03 22:31 00:12 02:17 Temp 36.1 Pulse 86 94 Resp 20 20 B/P (MAP) 109/57 (74) 110/67 (81) Pulse Ox 93 92 94 92 O2 Delivery Nasal Cannula Nasal Cannula Nasal Cannula Nasal Cannula O2 Flow Rate 4.00 4.00 4.00 4.00 07/29/21 07/29/21 07/29/21 07/29/21 03:04 07:17 07:24 07:50 Temp 36.9 Pulse 93 Resp 20 B/P (MAP) 126/70 (88) Pulse Ox 96 95 92 O2 Delivery Nasal Cannula Nasal Cannula Nasal Cannula Nasal Cannula O2 Flow Rate 4.00 4.00 3.00 3.00 07/29/21 07/29/21 07/29/21 07/29/21 08:00 10:41 15:17 16:15 Temp 37.2 Pulse 85 Resp 22 B/P (MAP) 142/71 (94) Pulse Ox 96 94 92 O2 Delivery Nasal Cannula Nasal Cannula Nasal Cannula Nasal Cannula O2 Flow Rate 4.00 3.00 3.00 3.00 07/29/21 07/29/21 07/29/21 07/29/21 18:48 20:15 21:55 23:49 Temp 36.8 Pulse 94 Resp 22 B/P (MAP) 129/66 (87) Pulse Ox 94 94 92 O2 Delivery Nasal Cannula Nasal Cannula Nasal Cannula Nasal Cannula O2 Flow Rate 3.00 3.00 3.00 3.00 07/30/21 07/30/21 07/30/21 07/30/21 02:00 08:03 08:19 10:58 Temp 37.0 Pulse 98 Resp B/P (MAP) 134/86 (102) Pulse Ox 95 95 95 93 O2 Delivery Nasal Cannula Nasal Cannula Nasal Cannula Nasal Cannula O2 Flow Rate 3.00 3.00 3.00 3.00 07/30/21 07/30/21 07/30/21 07/30/21 11:16 15:10 15:35 18:37 Temp 37.0 36.9 Pulse 91 93 Resp B/P (MAP) 121/83 (96) Pulse Ox 93 92 94 90 O2 Delivery Nasal Cannula Nasal Cannula Nasal Cannula O2 Flow Rate 2.00 2.00 2.00 FiO2 32 07/30/21 07/30/21 07/31/21 07/31/21 20:00 21:49 00:00 02:44 Temp 36.0 Pulse 105 Resp B/P (MAP) 123/73 (90) Pulse Ox 90 91 92 O2 Delivery Nasal Cannula Nasal Cannula Nasal Cannula Nasal Cannula O2 Flow Rate 3.00 2.00 3.00 4.00 07/31/21 07/31/21 07/31/21 07/31/21 02:45 04:29 08:00 08:17 Temp 37.7 37.4 37.0 Pulse 87 91 Resp 22 B/P (MAP) 115/75 (88) 101/65 (77) Pulse Ox 94 95 O2 Delivery Nasal Cannula Vapotherm Vapotherm O2 Flow Rate 4.00 45.00 30.00 07/31/21 07/31/21 07/31/21 07/31/21 11:45 11:46 12:00 12:00 Pulse 141 151 141 Resp 43 40 B/P (MAP) 127/83 (98) 122/94 (103) Pulse Ox 98 96 O2 Delivery Vapotherm Vapotherm Vapotherm O2 Flow Rate 45.00 45.00 35.00 30.00 30.00 FiO2 35 07/31/21 07/31/21 07/31/21 07/31/21 13:00 13:00 14:00 14:03 Pulse 147 156 146 146 Resp 43 B/P (MAP) 109/48 (68) 105/94 (98) 105/94 Pulse Ox 94 O2 Delivery Vapotherm O2 Flow Rate 45.00 30.00 07/31/21 07/31/21 07/31/21 07/31/21 15:15 16:00 16:00 16:00 Temp 36.5 Pulse 147 140 Resp 27 B/P (MAP) 105/67 (80) Pulse Ox 97 97 O2 Delivery Vapotherm Vapotherm NIV CPAP O2 Flow Rate 45.00 45.00 30.00 30.00 FiO2 35 07/31/21 07/31/21 07/31/21 07/31/21 17:00 18:00 19:00 19:00 Pulse 137 130 123 123 Resp 39 34 38 B/P (MAP) 93/44 (60) 118/40 (66) 92/42 (59) Pulse Ox 97 97 97 O2 Delivery Vapotherm Vapotherm NIV CPAP O2 Flow Rate 45.00 45.00 75.00 30.00 30.00 07/31/21 07/31/21 07/31/21 07/31/21 19:20 19:43 20:00 20:00 Pulse 123 125 118 Resp 39 B/P (MAP) 86/56 (66) Pulse Ox 96 96 O2 Delivery NIV CPAP NIV CPAP O2 Flow Rate 75.00 75.00 FiO2 75 07/31/21 07/31/21 07/31/21 07/31/21 20:23 20:26 21:00 22:00 Pulse 112 112 114 Resp 33 36 B/P (MAP) 91/28 86/56 87/57 (67) 95/55 (68) Pulse Ox 94 93 O2 Delivery NIV CPAP NIV CPAP O2 Flow Rate 75.00 75.00 07/31/21 07/31/21 08/01/21 08/01/21 22:12 23:00 00:00 00:38 Pulse 115 122 124 Resp 35 35 B/P (MAP) 72/49 (57) 115/33 (60) 98/26 Pulse Ox 95 95 95 O2 Delivery NIV CPAP NIV CPAP O2 Flow Rate 75.00 75.00 75.00 08/01/21 08/01/21 08/01/21 08/01/21 00:53 00:54 01:00 01:14 Pulse 121 121 120 Resp 18 B/P (MAP) 95/49 95/49 Pulse Ox 99 FiO2 100 08/01/21 08/01/21 08/01/21 03:36 03:37 03:38 B/P (MAP) 57/27 89/38 89/38 08/01/21 00:00 Intake Total 1030 ml Output Total 950 ml Balance 80 ml Blood Pressure Mean: 55 FSBG Bedside Testing Finger Stick Blood Glucose: 127 Blood Glucose Action Taken: RN NOTFIED Diagnostic Imaging Diagonstic Imaging: Xray Plain Films/CT/US/NM/MRI: chest Time of Consult: 11:35 YANIRA HUFF Aug 01, 2021 05:03
--- NOTE | 2021-08-01 05:57 | Diagnostic Imaging Report ---
Indication: Respiratory failure Portable chest 1:21 AM There is ET tube projects over the trachea. NG tube appears into the stomach. Left upper extremity PICC line tip projects over the SVC. Heart size and pulmonary vascularity are normal. Lungs are clear. There are no effusions or pneumothoraces. IMPRESSION: No acute abnormalities in the chest Dictated by: Dictated on workstation # [id number]
--- NOTE | 2021-08-01 07:13 | Discharge Summary ---
Diagnosis/Chief Complaint Date of Admission Jul 27, 2021 at 11:35 Date of Discharge Discharge Diagnosis Problems/Diagnosis: (1) Sepsis Assessment & Plan: 07/31: Called to patient's room due to decline, now requiring vapotherm, tachycardic, not improving with breathing treatments and patient has known infection. Repeat blood cultures, LA and Fluid bolus started. Patient with known CHF and elevated BNP during this admission so she was given less then the 30mg/kg bolus. Will start with 500 cc bolus and reevaluate. Started on V ancomycin to cover MRSA. ~ 35 min Critical care time stablizing and transferring patient to ICU Qualifiers: Qualified Codes: A41.02 - Sepsis due to methicillin resistant Staphylococcus aureus Status: Acute (2) Lactic acid acidosis Assessment & Plan: 07/31: LA 4, recheck in 2 hrs Status: Acute (3) Acute and chronic respiratory failure Assessment & Plan: - Patient requiring 5L NC, will titrate as tolerated, MAT protocol, Steroids, IS, increase ambulation 07/29: Titrated down to 3L NC, continue to titrate as tolerated, PT ordered to increase ambulation 07/30: Will order home oxygen study prior to d/c due to continual need. 07/31: See Above Status: Acute (4) COPD exacerbation Status: Acute (5) Influenza A Assessment & Plan: - Continue Tamiflu Status: Acute (6) Abscess of right axilla Assessment & Plan: 07/29: I&D performed today, warm compresses, clindamycin started for cellulitis associated with abcess 07/30: Pain has improved only minimally, culture + MRSA, increased swelling and induration, consulted Dr Yancey 07/31: Dr Yancey evaluated with US and no fluid collection was present, will continue to monitor with IV antibiotics and local wound care Status: Acute (7) MRSA (methicillin resistant staph aureus) culture positive Status: Acute (8) HTN (hypertension) Assessment & Plan: - Holding blood pressure medications at this time due to normotensive pressures Qualifiers: Qualified Codes: I10 - Essential (primary) hypertension Status: Chronic (9) Generalized weakness Assessment & Plan: - Will order PT Status: Acute (10) Depression Assessment & Plan: - Patient states that she had SI about 1 month ago, she denies having such ideas since then and is not currently suicidal at this time, Will continue home psych medications Qualifiers: Qualified Codes: F33.1 - Major depressive disorder, recurrent, moderate Status: Chronic (11) BMI 45.0-49.9, adult Status: Chronic Chief Complaint/HPI Chief Complaint/HPI 60 yo F with COPD that presented with increasing shortness of breath and fever of 103. Patient states that she started to feel sick on 07/23. States that there were other people who were sick in her household but everyone tested neg for flu and covid including the patient last week. She then spiked a fever over the weekend and stated that she was extremely weak and unable to stand up out of her chair. She see a filleter in [place] and states that she has a baseline oxygen requirement of 2L NC at night only. This AM she states that she is feeling some better then yesterday but still having weakness and shortness of breath with minimal activities. Discharge Summary-Simple/Stand Consultations Discharge Physical Examination Allergies: Coded Allergies: aspirin (Unverified Allergy, Unknown, 07/01/15) Penicillins (Unverified Adverse Reaction, Mild, N/V, 07/02/15) Vitals & I&Os Vital Sign - Last 12Hours Date Time Temp Pulse Resp B/P (MAP) Pulse Ox O2 Delivery O2 Flow Rate FiO2 08/01/21 04:00 Mechanical Ventilator 90 08/01/21 03:38 89/38 08/01/21 03:00 106 22 81 75.00 08/01/21 00:00 36.0 Intake and Output 08/01/21 00:00 Intake Total 1030 ml Output Total 950 ml Balance 80 ml Hospital Course See final discharge diagnosis. Discharge Instructions to patient/family Please see electronic discharge instructions given to patient. Discharge Medications Reviewed and agree with Discharge Medication list on patient's Discharge Instruction sheet LIA GRAYSON MD Aug 01, 2021 07:13
--- NOTE | 2021-08-01 07:23 | Occ Therapy Progress Note ---
Therapy Progress Note Order received. Pt is currently intubated. OT to continue to monitor pt and will initiate treatment when pt is medically stable and able to actively participate in skilled therapy. IVETT ANDRADE Aug 01, 2021 07:23
[2021-08-01] MEDS ORDERED: AMIODARONE (BOLUS) 150 MG/3 ML IV ONE (08:34)
[2021-08-01] MEDS ORDERED: EPINEPHrine 0.1 MG/ML 10 ML (HOSPIRA) SYR IJ ONE (08:34)
[2021-08-01] MEDS ORDERED: SUCCINYLCHOLINE INJ 100 MG/5 ML SYR/VIAL INJ ONE (08:34)
[2021-08-01] MEDS ORDERED: proPOfol 200 MG/20 ML (DIPRIVAN) VIAL IV ONE (08:34)
[2021-08-01] MEDS ORDERED: TROUGH ORDER-PHARMACY XX NR (23:00)
--- NOTE | 2021-08-04 18:30 | Physician Query Clarification ---
Physician Query-General Query to Physician: The medical record reflects the following clinical scenario: The patient, in the setting of History/Risk factors, UTI, Cyst/Abscess R axilla, influenza A, O2 use at home at HS only Clinical Findings BC drawn on admission day Positive for Staph, Admission VS/Labs: HR 121, RR 29, BP 99/68, SpO2 92% sat on 4 L T 38.8, WBC 7.8, , lactic acid 1.21 influenza A detected, Wound culture from Axilla abscess Pos for MRSA, SOB on admission 02 sat 89% on 4L shortly after admission, Treatment In ER: Lactated Ringer's 1 L, Solu-Medrol IV, normal saline 1 L bolus, Tamiflu p.o., then normal saline continuous, Question: Can you further specify Sepsis Documented on (diagnosis/condition) per the clinical indicators above? Please document your response in the Progress Notes or Discharge Summary. 1. Severe Sepsis due to MRSA, Present on admission 2. Other, with explanation of clinical findings 3. Clinically undetermined, no explanation for clinical findings Please clarify and document your clinical opinion in the Progress Notes and Discharge Summary including the definitive and/or presumptive diagnosis, (suspected or probable), related to the above clinical findings. Please include clinical findings supporting your diagnosis. In responding to this query, please exercise your independent professional judgment. The purpose of this communication is to more accurately reflect the complexity of your patients condition. The fact that a question is asked does not imply that any particular answer is desired or expected. Please remember a lack of response to the above will prompt a phone page by CDI/coding staff. Thank you for timely response to this clarification. Rissa Barillas MSN, RN Clinical [employer] [phone] [email or web address] PHYSICIAN RESPONSE: Based on the clinical findings in the record, please respond to the query above on this document as an addendum. Physician Response: Physician Response Severe Sepsis present on admission thought to be related to influenza. BC turned positive after almost 48 hrs after admission and patient was then started on antibiotics and developed septic shock. If you have questions please contact: Safety Representative: Ext: Thank you for your time and cooperation. Clinical Car Rep[employer]r Helper/Safety Representative This is a permanent part of the medical record RISSA BARILLAS August 04, 2021 18:30 LIA GRAYSON MD August 05, 2021 20:27
== END 2021-08-01 04:07 | disposition expired | DRG 871 ==
LOC: EDUNIT# 10:26 → ER 10:27 → 4TH 11:35 → ICU 07-31 11:11 → UNDODISIN 08-04 12:21
PROVIDERS: ADMIT Internal Medicine; ATTEND Internal Medicine
PROC: 8E0ZXY6 Isolation (ICD-10-PCS; 2021-07-27)
PROC: 5A09357 Assistance with Respiratory Ventilation, Less than 24 Consecutive Hours, Continuous Positive Airway Pressure (ICD-10-PCS; 2021-07-31)
PROC: 5A0935A Assistance with Respiratory Ventilation, Less than 24 Consecutive Hours, High Flow/Velocity Cannula (ICD-10-PCS; 2021-07-31)
PROC: 5A1935Z Respiratory Ventilation, Less than 24 Consecutive Hours (ICD-10-PCS; principal; 2021-08-01)
PROC: 0BH17EZ Insertion of Endotracheal Airway into Trachea, Via Natural or Artificial Opening (ICD-10-PCS; 2021-08-01)
PROC: 5A12012 Performance of Cardiac Output, Single, Manual (ICD-10-PCS; 2021-08-01)
PROC: 5A2204Z Restoration of Cardiac Rhythm, Single (ICD-10-PCS; 2021-08-01)
DX: A41.02 Sepsis due to Methicillin resistant Staphylococcus aureus (principal); J96.21 Acute and chronic respiratory failure with hypoxia; R65.21 Severe sepsis with septic shock; L02.411 Cutaneous abscess of right axilla; I47.2 Ventricular tachycardia; E87.4 Mixed disorder of acid-base balance; J10.1 Influenza due to other identified influenza virus with other respiratory manifestations; J43.9 Emphysema, unspecified; N61.0 Mastitis without abscess; I10 Essential (primary) hypertension; F32.A Depression, unspecified; F41.9 Anxiety disorder, unspecified; I48.91 Unspecified atrial fibrillation; F17.210 Nicotine dependence, cigarettes, uncomplicated; E78.00 Pure hypercholesterolemia, unspecified; K21.9 Gastro-esophageal reflux disease without esophagitis; E87.6 Hypokalemia; Z20.822 Contact with and (suspected) exposure to COVID-19; Z79.52 Long term (current) use of systemic steroids; Z88.6 Allergy status to analgesic agent; Z88.0 Allergy status to penicillin
CPT/HCPCS: 36415; 36569; 51702; 71045; 76937; 80048; 80053; 81000; 82805; 82947; 83605; 83735; 83880; 84100; 84145; 84443; 84484; 85007; 85025; 85027; 85379; 85610; 85730; 86141; 87040; 87070; 87077; 87088; 87184; 87186; 87205; 87636; 93005; 94002; 94640; 94664; 94760; 94799